=== PATIENT | male | born 1930 | race Caucasian/White ===

== ENCOUNTER → 2016-09-15 | Outpatient (CLI) | payer MEDICARE ==
[~2016-09-15] MED LIST: ATEN25TA PO; ATRV10T PO; CIPRO; HYDROCODONE; NAPR220C11 PO; OMEP-10 PO; PRD50T PO; PYRIDIUM; RAPAFLOW; aleve
--- NOTE | 2016-09-17 13:41 | ECHOCARDIOGRAPHY REPORT ---
DATE OF SERVICE: 09/15/2016 2D ECHOCARDIOGRAM REFERRING PHYSICIAN: Jese Tam MD MEASUREMENT: LVID end diastolic 4.9. IVS thickness 1.0. LVPW thickness 1.0. Left atrial diameter 3.7. Ejection fraction 60%. FINDINGS: 1. Technical quality is good. 2. The left ventricle is normal in size with normal contractility, systolic function appeared to be normal. Estimated ejection fraction is 60%. 3. The left atrium is normal in size. No clot or thrombus was seen within the left atrium. 4. The right atrium and right ventricle are normal in size. No clot or thrombus was seen within the right side. 5. 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 No mitral valve prolapse. No mitral valve stenosis. 6. Aortic valve is mildly calcified, still opening and closing normally, no significant aortic valve stenosis or regurgitation was seen. 7. Tricuspid valve is normal in morphology with mild tricuspid regurgitation noted by color Doppler flow. Doppler across the tricuspid valve estimated pulmonary artery pressure of 24 plus right atrial pressure. 8. Pulmonic valve is functioning normally. 9. No pericardial effusion. CONCLUSION: 1. Normal left ventricular size and systolic function, estimated ejection fraction 60%. 2. 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 3. Aortic valve sclerosis, no aortic stenosis. 4. Estimated pulmonary artery pressure of 30 mmHg. Job ID: [id number] DocumentID: [id number] Dictated Date: 09/16/2016 07:59:32 Shape Hand Date: 09/16/2016 09:37:36 Dictated By: DYLON HERNANDEZ MD
== END ==
LOC: CARD 14:51
PROVIDERS: ATTEND Physician Assistant
DX: I48.0 Paroxysmal atrial fibrillation (principal); I65.23 Occlusion and stenosis of bilateral carotid arteries; R53.83 Other fatigue; E78.2 Mixed hyperlipidemia

== ENCOUNTER → 2016-11-24 | Outpatient (CLI) | payer MEDICARE ==
--- NOTE | 2016-11-24 16:48 | Diagnostic Imaging Report ---
EXAMINATION: Multiplanar, multisequence MRI of the thoracic spine is performed without intravenous contrast. INDICATION: Back pain. FINDINGS: There is a scoliotic curvature convex to the right in the lower thoracic spine. This can be better assessed on radiographs or coronal imaging. The alignment of the posterior spinal line is satisfactory. There is no acute or chronic compression fractures. The spinal cord is normal in caliber and signal. There is disc desiccation at multiple levels with no significant disc height loss seen. There is a partially visualized disc disease at C6/7 level with endplate irregularity and disc herniation. There is suggestion of at least mild spinal canal stenosis at that level. There is minimal disc herniation seen at C7/T1 and T1/T2. This is not associated with spinal canal stenosis or cord compression. There is also a disc bulge at T11/12. This is associated with prominent facet and ligamentous hypertrophy and is associated with mild to moderate spinal canal stenosis reducing the AP dimension of the canal to 8.8 mm. Multilevel facet hypertrophy is seen. There is suggestion of moderate to severe foraminal narrowing at C7/T1 left foramen and moderate foramina stenosis on the left at T1/T2. There is moderate to severe foraminal narrowing on the right side at T1/T2. IMPRESSION: 1. There is thoracic spine scoliosis and degenerative changes. 2. Mild to moderate spinal canal stenosis at T11/12 is seen with no cord compression. 3. Upper thoracic spine foraminal stenosis is seen most prominent on the right side at T1/T2 of moderate to severe degree. Dictated by: Dictated on workstation # [id number]
== END ==
LOC: RAD 10:02
PROVIDERS: ATTEND Orthopaedic Surgery Orthopaedic Surgery of the Spine
DX: M47.814 Spondylosis without myelopathy or radiculopathy, thoracic region (principal); M48.04 Spinal stenosis, thoracic region; M41.24 Other idiopathic scoliosis, thoracic region
CPT/HCPCS: 72146

== ENCOUNTER → 2016-12-09 | Outpatient (CLI) | payer MEDICARE ==
--- NOTE | 2016-12-09 15:42 | Diagnostic Imaging Report ---
PROCEDURE: MRI lumbar spine. TECHNIQUE: Multiplanar, multisequence MRI of the lumbar spine was performed without contrast. INDICATION: Chronic back pain and bilateral leg pain. FINDINGS: There is a transitional lumbosacral junction with the S1/S2 level demonstrating a rudimentary disc. There is left convexity scoliosis of the lumbar spine. The alignment at the posterior spinal line is satisfactory. There is susceptibility artifact related to fusion hardware between spinous processes of L4 and L5. The vertebral body heights are preserved. There is multilevel disc desiccation and there is significant disc height loss and endplate degenerative changes seen, more prominent along the right side of the discs around L2/L3, L3/L4 and L4/L5 levels. This relates to the mechanical stress at the concavity of the scoliosis. Corresponding bone marrow reactive edema around these endplates is seen and is prominent. The cauda equina and conus medullaris appear grossly unremarkable. L1/L2: There is a mild disc bulge and mild to moderate facet hypertrophy. No central canal, lateral recess or right foraminal stenosis. The left foramen demonstrates mild to moderate stenosis. L2/L3: There is a diffuse disc bulge and moderate to severe facet arthropathy, worse on the right side with associated severe spinal canal stenosis reducing the AP dimension of the canal to 6.8 mm centrally and associated with lateral recess stenosis, severe on the right and moderate on the left. There is moderate foraminal stenosis on the left and severe foraminal stenosis on the right side. L3/L4: There is a mild diffuse disc bulge without central canal stenosis. There is moderate to severe right lateral recess stenosis and no significant left lateral recess stenosis. The foramina demonstrate mild stenosis bilaterally. L4/L5: There is a diffuse disc bulge and bilateral moderate to severe facet hypertrophy. No significant central canal stenosis. The lateral recess demonstrates moderate stenosis on the right and mild stenosis on the left. The foramina demonstrate moderate to severe stenosis bilaterally. L5/S1: There is a disc bulge asymmetric to the left. There is a component of disc protrusion in the left paracentral region that has a cranial extension without associated significant spinal canal stenosis. There is bilateral lateral recess stenosis, mild on the right and moderate on the left. The foramina demonstrate mild to moderate stenosis bilaterally. S1/S2: There is no spinal canal or foraminal stenosis. IMPRESSION: 1. There is a transitional lumbosacral junction with rudimentary slightly prominent disc at S1/S2 level. Spinous process fusion hardware between L4 and L5 is seen. 2. There is prominent left convexity scoliosis centered around L3 level with associated significant disc and facet degenerative changes. 3. There is severe spinal canal stenosis at L2/L3 level. 4. Multilevel neuroforaminal stenosis. Dictated by: Dictated on workstation # [id number]
== END ==
LOC: RAD 12:44
PROVIDERS: ATTEND Pain Medicine Interventional Pain Medicine
DX: M51.36 Other intervertebral disc degeneration, lumbar region (principal); M41.26 Other idiopathic scoliosis, lumbar region; M48.06 Spinal stenosis, lumbar region
CPT/HCPCS: 72148

== ENCOUNTER → 2017-02-14 | Outpatient (CLI) | payer MEDICARE ==
[~2017-02-14] VITALS: Ht 172.7 cm; Wt 78.9 kg
[~2017-02-14] MED LIST changes: +REGADENOSON 0.4 MG/5 ML SYR (LEXISCAN) IV ONE
[2017-02-14] MEDS: CATHETER FLUSH 10 ML SYR IV PRN ×2 (08:39→09:51)
[2017-02-14 09:41] VITALS: BP 118/72
--- NOTE | 2017-02-15 08:02 | STRESS TEST ---
DATE OF SERVICE: 02/14/2017 LEXISCAN MYOVIEW STRESS TEST REPORT REFERRING PHYSICIAN: Dr. Tam. Baseline heart rate is 58. Baseline blood pressure 118/72. Baseline EKG is sinus rhythm with no ischemic changes. In summary, the patient received 10.33 mCi of technetium-99 Myoview and the resting images were obtained then the patient received 0.4 mg of Lexiscan followed by 29.6 mCi of technetium-99 Myoview. Throughout the test, there were no EKG changes. The resting and stress images were reviewed and compared in the short axis, horizontal long axis, and vertical long axis views. Review of the images showed increased gastric uptake with diaphragmatic attenuation affecting the quality of the images. There is mild decreased uptake at the mid to apical inferior wall with mild reversibility. SSS 4, SDS 2, TID value 1.0. On the gated images, the left ventricle appeared to be normal in size with mild hypokinesia of the inferior wall. Calculated ejection fraction 57%. CONCLUSION: 1. The patient tolerated Lexiscan well. 2. Increased gastric uptake with diaphragmatic attenuation affecting the quality of the images with questionable mild ischemia at the inferior wall and inferolateral wall. 3. Normal left ventricular size with mild hypokinesia at the inferior wall. Calculated ejection fraction 57%. Job ID: [id number] DocumentID: [id number] Dictated Date: 02/14/2017 16:14:31 Industrial Engineering Technologist Date: 02/15/2017 00:55:49 Dictated By: DYLON HERNANDEZ MD
== END ==
LOC: CARD 08:27
PROVIDERS: ATTEND Physician Assistant
DX: I48.0 Paroxysmal atrial fibrillation (principal); I65.23 Occlusion and stenosis of bilateral carotid arteries; E78.2 Mixed hyperlipidemia; I34.0 Nonrheumatic mitral (valve) insufficiency; I10 Essential (primary) hypertension
CPT/HCPCS: 78452; 93017

== ENCOUNTER 2017-03-29 23:50 | Inpatient (IN) | payer MEDICARE ==
[~2017-03-29] VITALS: Ht 172.7 cm; Wt 79.8 kg
[~2017-03-29 23:50] MED LIST changes: -ACET325T38 PO; -BACL10TA PO; -FENO160T12 PO; -HYDR59LO2 TOP; -LEVO500T80 PO; -METO-387 PO; -OMEP20CA12 PO; -SULF-222 PO
[2017-03-30] VITALS (39 sets, daily range): BP systolic 82–120; BP diastolic 45–87
[2017-03-30] MEDS ORDERED: NS IV 1000 ML 1,000 ML IV ONE ×2 (00:01→06:00)
[2017-03-30 00:10] LABS: BASOPHILS % (AUTO) 0 % (0-10); EOSINOPHILS % (AUTO) 0 % (0-10); LYMPHOCYTES # (AUTO) 0.8 X 10^3 (1.0-4.0); LYMPHOCYTES % (AUTO) 6 % (12-44); MEAN CORPUSCULAR HEMOGLOBIN 32 PG (25-34); MEAN CORPUSCULAR HGB CONC 33 G/DL (32-36); MEAN CORPUSCULAR VOLUME 97 FL (80-99); MEAN PLATELET VOLUME 10.6 FL (7.4-10.4); MONOCYTES # (AUTO) 1.8 X 10^3 (0.0-1.0); MONOCYTES % (AUTO) 12 % (0-12); NEUTROPHILS # (AUTO) 11.6 X 10^3 (1.8-7.8); NEUTROPHILS % (AUTO) 82 % (42-75); PLATELET COUNT 192 10^3/uL (130-400); RED BLOOD COUNT 3.83 10^6/uL (4.35-5.85); RED CELL DISTRIBUTION WIDTH 14.3 % (10.0-14.5); WHITE BLOOD COUNT 14.1 10^3/uL (4.3-11.0)
[2017-03-30 00:22] LABS: INR 1.1 (0.8-1.4); PROTHROMBIN TIME PATIENT 14.6 SEC (12.2-14.7)
[2017-03-30 00:27] LABS: BAND NEUTROPHILS 5 %; BASOPHILS % (MANUAL) 0 %; EOSINOPHILS % (MANUAL) 0 %; LYMPHOCYTES % (MANUAL) 4 %; NEUTROPHILS % (MANUAL) 83 %; REACTIVE LYMPHOCYTES 2 %
[2017-03-30] MEDS ORDERED: cefTRIAXone INJECTION 1,000 MG in NS (IVPB) 50 ML IV ONE (00:30)
[2017-03-30 00:33] LABS: ALBUMIN 3.8 GM/DL (3.2-4.5); BILIRUBIN,TOTAL 0.5 MG/DL (0.1-1.0); CALCIUM 9.6 MG/DL (8.5-10.1); CREATININE SERUM 2.73 MG/DL (0.60-1.30); POTASSIUM 4.4 MMOL/L (3.6-5.0); TOTAL PROTEIN 7.1 GM/DL (6.4-8.2)
[2017-03-30 00:43] LABS: BILIRUBIN,URINE NEGATIVE (NEGATIVE); KETONES,URINE NEGATIVE (NEGATIVE); LEUKOCYTE ESTERASE ,URINE 3+ (NEGATIVE); NITRITE,URINE NEGATIVE (NEGATIVE); PH,URINE 6 (5-9); PROTEIN,URINE 2+ (NEGATIVE); UROBILINOGEN,URINE NORMAL (NORMAL)
--- NOTE | 2017-03-30 00:46 | ED General ---
General Chief Complaint: Fever-Adult/Adol Stated Complaint: UTI,POSS KIDNEY STONE Nursing Triage Note: PT TO ED 7 W/ FAMILY FOR C/O ELEVATED TEMP, POSSIBLE UTI Nursing Sepsis Screen: No Definite Risk Source of Information: Patient Exam Limitations: No Limitations History of Present Illness Time Seen by Provider: 23:56 Initial Comments Here with report of fever, chills and shaking with concerns of urinary tract infection. His doctor had noted urinary tract infection at an office visit and started him on Bactrim. He also had CT scan and abdominal x-ray earlier today and was due to start Levaquin tomorrow. 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 Follows with Dr. Frank. He has appointment with Dr. Frank on in the afternoon for obstructive uropathy noted on CT scan today. History of recent back surgery approximately a month ago with surgical wounds healing well and no problems related to that. He does have stage I decubitus to the area of the coccyx due to prolonged sitting. Believes that the kidney stone may be a result of having where his back brace for a prolonged period after the surgery. Denies other wounds on the skin. Denies nausea or vomiting and reports constipation. Did take a Tylenol and a hydrocodone at about 7 p.m. tonight and that did help but the chills and shaking were noted later this evening prompting the visit. Timing/Duration: 12-24 Hours Severity: Moderate Associated Systoms: No Chest Pain, No Cough, Fever/Chills, No Nausea/Vomiting, No Shortness of Air, Weakness Allergies and Home Medications Allergies Coded Allergies: Penicillins (Verified Allergy, Unknown, 09/01/06) iodine (Verified Allergy, Unknown, 09/01/06) Home Medications Atenolol 25 Mg Tablet, 25 MG PO DAILY, #30 Ref 0 Prescribed by: MERLINE ERICKSON on 04/19/151814 Atorvastatin Calcium 10 Mg Tablet, 1 TAB PO HS, Ref 0 (Reported) Naproxen Sodium 220 Mg Capsule, 220 MG PO BID, (Reported) Omeprazole 20 Mg Capsule.dr, 20 MG PO DAILY, (Reported) Constitutional: see HPI, chills, fever, weakness EENTM: no symptoms reported Respiratory: no symptoms reported, No cough, No short of breath Cardiovascular: No chest pain, No palpitations Gastrointestinal: abdominal pain (suprapubic region), No nausea, No vomiting Genitourinary: No dysuria, pain Musculoskeletal: back pain, muscle pain Skin: no symptoms reported Psychiatric/Neurological: No Symptoms Reported All Other Systems Reviewed Negative Unless Noted: Yes Past Urteecl-Kanncw-Pjueko Hx Patient Social History Alcohol Use: Denies Use Recreational Drug Use: No Smoking Status: Never a Smoker Recent Foreign Travel: No Contact w/Someone Who Travel: No Recent Infectious Disease Expo: No Recent Hopitalizations: Yes Physical Abuse: No Sexual Abuse: No Mistreated: No Fear: No Immunizations Up To Date Date of Pneumonia Vaccine: Jun 28, 2006 Date of Influenza Vaccine: Mar 02, 2015 Surgeries History of Surgeries: Yes Respiratory History of Respiratory Disorde: No Cardiovascular History of Cardiac Disorders: Yes Neurological History of Neurological Disord: No Reproductive System Hx Reproductive Disorders: Yes Gastrointestinal History of Gastrointestinal Di: Yes Gastrointestinal Disorders: Esophagitis Musculoskeletal History of Musculoskeletal Dis: Yes Musculoskeletal Disorders: Arthritis Endocrine History of Endocrine Disorders: No Cancer History of Cancer: Yes Cancer: Skin Psychosocial History of Psychiatric Problem: No Suicide Risk Score: 0 Blood Transfusions History of Blood Disorders: No Reviewed Nursing Assessment Reviewed/Agree w Nursing PMH: Yes Family Medical History Significant Family History: No Pertinent Family Hx Physical Exam-Suspected Sepsis Physical Exam Vital Signs Vital Sign - Last 12Hours 03/29/17 03/30/17 23:53 00:05 Temp 100.6 Pulse 129 Resp 20 B/P (MAP) 88/68 Pulse Ox 92 O2 Delivery Room Air O2 Flow Rate 2.00 Capillary Refill : Less Than 3 Seconds Blood Pressure Mean: 75 General Appearance: No Apparent Distress, WD/WN HEENT: PERRL/EOMI, Pharynx Normal Neck: Non Tender, Supple Respiratory: Lungs Clear, Normal Breath Sounds Cardiovascular: No Murmur, Tachycardia Gastrointestinal: Non Tender, Soft Back: Normal Inspection, No CVA Tenderness, No Vertebral Tenderness Extremity: Normal Capillary Refill, Normal Range of Motion, Non Tender Neurologic/Psychiatric: Alert, Oriented x3 Skin: warm/dry, other (stage I decubitus to the area of the coccyx with redness noted. Surgical wounds to the left side of the abdomen are healed without signs and symptoms of infection.) Focused Exam Evaluation Lactate Level Laboratory Tests 03/30/17 00:00: Lactic Acid Level 2.88*H 03/30/17 01:56: Lactic Acid Level 1.46 Lactic Acid Level Laboratory Tests Test 03/30/17 01:56 Lactic Acid Level 1.46 MMOL/L (0.50-2.00) Progress/Results/Core Measures Suspected Sepsis Recent Fever Within 48 Hours: No Infection Criteria Present: None New/Unexplained Altered Menta: No Sepsis Screen: No Definite Risk Sepsis Diagnosis: SIRS Temperature:100.6 Pulse: 129 Respiratory Rate: 20 Laboratory Tests 03/30/17 00:00: White Blood Count 14.1H 03/30/17 04:45: White Blood Count 14.2H Blood Pressure 88 /68 Mean: 75 Laboratory Tests 03/30/17 00:00: Lactic Acid Level 2.88*H 03/30/17 01:56: Lactic Acid Level 1.46 Laboratory Tests 03/30/17 00:00: Creatinine 2.73H, INR Comment 1.1, Platelet Count 192, Total Bilirubin 0.5 03/30/17 04:45: Creatinine 2.54H, Platelet Count 146, Total Bilirubin 0.3 Results/Orders Lab Results Laboratory Tests Test 03/30/17 00:00 03/30/17 00:35 03/30/17 01:56 03/30/17 04:45 Range/Units White Blood Count 14.1 H 14.2 H 4.3-11.0 10^3/uL Red Blood Count 3.83 L 3.24 L 4.35-5.85 10^6/uL Hemoglobin 12.2 L 10.3 L 13.3-17.7 G/DL Hematocrit 37 L 31 L 40-54 % Mean Corpuscular Volume 97 97 80-99 FL Mean Corpuscular Hemoglobin 32 32 25-34 PG Mean Corpuscular Hemoglobin Concent 33 33 32-36 G/DL Red Cell Distribution Width 14.3 14.3 10.0-14.5 % Platelet Count 192 146 130-400 10^3/uL Mean Platelet Volume 10.6 H 10.9 H 7.4-10.4 FL Neutrophils (%) (Auto) 82 H 83 H 42-75 % Lymphocytes (%) (Auto) 6 L 3 L 12-44 % Monocytes (%) (Auto) 12 14 H 0-12 % Eosinophils (%) (Auto) 0 0 0-10 % Basophils (%) (Auto) 0 0 0-10 % Neutrophils # (Auto) 11.6 H 11.8 H 1.8-7.8 X 10^3 Lymphocytes # (Auto) 0.8 L 0.5 L 1.0-4.0 X 10^3 Monocytes # (Auto) 1.8 H 1.9 H 0.0-1.0 X 10^3 Eosinophils # (Auto) 0.0 0.0 0.0-0.3 10^3/uL Basophils # (Auto) 0.0 0.0 0.0-0.1 10^3/uL Neutrophils % (Manual) 83 % Lymphocytes % (Manual) 4 % Monocytes % (Manual) 6 % Eosinophils % (Manual) 0 % Basophils % (Manual) 0 % Band Neutrophils 5 % Reactive Lymphocytes 2 % Blood Morphology Comment NORMAL Prothrombin Time 14.6 12.2-14.7 SEC INR Comment 1.1 0.8-1.4 Activated Partial Thromboplast Time 29 24-35 SEC Sodium Level 135 136 135-145 MMOL/L Potassium Level 4.4 4.0 3.6-5.0 MMOL/L Chloride Level 102 107 98-107 MMOL/L Carbon Dioxide Level 21 21 21-32 MMOL/L Anion Gap 12 8 5-14 MMOL/L Blood Urea Nitrogen 45 H 40 H 7-18 MG/DL Creatinine 2.73 H 2.54 H 0.60-1.30 MG/DL Estimat Glomerular Filtration Rate 22 24 BUN/Creatinine Ratio 16 16 Glucose Level 150 H 122 H 70-105 MG/DL Lactic Acid Level 2.88 *H 1.46 0.50-2.00 MMOL/L Calcium Level 9.6 8.5 8.5-10.1 MG/DL Total Bilirubin 0.5 0.3 0.1-1.0 MG/DL Aspartate Amino Transf (AST/SGOT) 17 18 5-34 U/L Alanine Aminotransferase (ALT/SGPT) 11 9 0-55 U/L Alkaline Phosphatase 87 69 40-136 U/L Total Protein 7.1 5.7 L 6.4-8.2 GM/DL Albumin 3.8 3.1 L 3.2-4.5 GM/DL Urine Color YELLOW Urine Clarity VERY CLOUDY H Urine pH 6 5-9 Urine Specific Pala 1.020 1.016-1.022 Urine Protein 2+ H NEGATIVE Urine Glucose (UA) 1+ H NEGATIVE Urine Ketones NEGATIVE NEGATIVE Urine Nitrite NEGATIVE NEGATIVE Urine Bilirubin NEGATIVE NEGATIVE Urine Urobilinogen NORMAL NORMAL MG/DL Urine Leukocyte Esterase 3+ H NEGATIVE Urine RBC (Auto) 5+ H NEGATIVE Urine RBC 2-5 H /HPF Urine WBC TNTC H /HPF Urine Squamous Epithelial Cells 0-2 /HPF Urine Crystals NONE /LPF Urine Bacteria MODERATE H /HPF Urine Casts NONE /LPF Urine Mucus SMALL H /LPF Urine Culture Indicated YES Phosphorus Level 2.1 L 2.3-4.7 MG/DL Magnesium Level 1.9 1.8-2.4 MG/DL Micro Results Microbiology 03/30/17 Influenza Types A,B Antigen (EDY) - Final, Complete My Orders Orders - MERLINE ERICKSON MD Cbc With Automated Diff (03/30/17 00:) Comprehensive Metabolic Panel (03/30/17 00:) Lactic Acid Analyzer (03/30/17 00:) Blood Culture (03/30/17 00:) Sputum Culture (03/30/17 00:) Ua Culture If Indicated (03/30/17 00:) Protime With Inr (03/30/17 00:) Partial Thromboplastin Time (03/30/17 00:01) Chest 1 View, Ap/Pa Only (03/30/17 00:01) O2 (03/30/17 00:01) Saline Lock/Iv-Start (03/30/17 00:01) Saline Lock/Iv-Start (03/30/17 00:01) Vital Signs Adult Sepsis Patie Q1H (03/30/17 00:01) Remove Rings In Anticipation O (03/30/17 00:01) Influenza A And B Antigens (03/30/17 00:01) Ns Iv 1000 Ml (Sodium Chloride 0.9%) (03/30/17 00:01) Manual Differential (03/30/17 00:00) Ceftriaxone Injection (Rocephin Injectio (03/30/17 00:30) Urine Culture (03/30/17 00:35) Medications Given in ED Current Medications Medications Dose Ordered Sig/Jennifer Route Start Time Stop Time Status Last Admin Dose Admin Ceftriaxone Sodium 1000 mg/ Sodium Chloride 50 ml @ 100 mls/hr ONCE ONCE IV 03/30/17 00:30 03/30/17 00:59 DC 03/30/17 00:40 100 MLS/HR Sodium Chloride 1,000 ml @ 0 mls/hr Q0M ONCE IV 03/30/17 00:01 03/30/17 00:03 DC 03/30/17 00:08 1,000 MLS/HR Vital Signs/I&O Vital Sign - Last 12Hours 03/29/17 03/30/17 03/30/17 03/30/17 23:53 00:05 02:08 02:09 Temp 100.6 103.8 Pulse 129 98 99 Resp 20 18 22 B/P (MAP) 88/68 107/55 Pulse Ox 92 95 97 92 O2 Delivery Room Air Nasal Cannula Nasal Cannula Nasal Cannula O2 Flow Rate 2.00 2.00 2.00 03/30/17 03/30/17 03/30/17 03/30/17 02:15 02:30 02:30 02:45 Pulse 65 98 98 97 Resp 19 18 18 B/P (MAP) 112/56 120/56 107/58 Pulse Ox 91 92 90 O2 Delivery Nasal Cannula Nasal Cannula Nasal Cannula O2 Flow Rate 2.00 2.00 2.00 03/30/17 03/30/17 03/30/17 03/30/17 03:00 03:15 03:30 03:45 Pulse 97 99 94 91 Resp 16 24 16 15 B/P (MAP) 93/50 112/59 94/51 100/50 Pulse Ox 95 89 95 94 O2 Delivery Nasal Cannula Nasal Cannula Nasal Cannula Nasal Cannula O2 Flow Rate 2.00 2.00 2.00 2.00 03/30/17 03/30/17 03/30/17 03/30/17 03:48 03:56 04:00 04:00 Temp 100.9 Pulse 88 Resp 25 B/P (MAP) 92/53 Pulse Ox 92 94 92 O2 Delivery Nasal Cannula Nasal Cannula Nasal Cannula O2 Flow Rate 2.00 2.00 2.00 03/30/17 03/30/17 03/30/17 03/30/17 04:15 04:29 04:30 04:45 Pulse 85 98 90 90 Resp 18 20 17 B/P (MAP) 101/56 88/47 92/49 Pulse Ox 94 92 95 94 O2 Delivery Nasal Cannula Nasal Cannula Nasal Cannula O2 Flow Rate 2.00 2.00 2.00 03/30/17 05:00 Pulse 89 Resp 15 B/P (MAP) 89/48 Pulse Ox 95 O2 Delivery Nasal Cannula O2 Flow Rate 2.00 Capillary Refill : Less Than 3 Seconds Blood Pressure Mean: 75 Progress Note : Progress Note Seen and evaluated. IV, labs, UA, chest x-ray, normal saline 1 L bolus, blood cultures and lactic acid ordered. Monitor patient. 0030: I have reviewed the patient's history an there are no urine cultures with findings noted. 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 States that Levaquin has worked in the past. Would like to try to find a different option. Creatinine noted to be elevated. We will use Rocephin 1 g IV for treatment at this point. Patient had an isolated low blood pressure 1 on arrival but patient was moving. Subsequent blood pressures have been 120s to 130s systolic and I believe the first blood pressure was an error. Lactic acid is elevated at 2.88 with elevated white count and tachycardia indicating sepsis. Patient actually has findings of severe sepsis with elevated creatinine. This is likely a result of the ureteral obstruction noted on CT done earlier today but also has findings of infection so we will treat as severe sepsis. Currently does not meet high-volume fluid resuscitation requirements as he is not hypotensive and lactic acid is less than 4. Patient will require admission. 0054: Discussed case with Dr. HE. He accepts patient for admission, inpatient status. Patient to go to ICU. Diagnostic Imaging Diagonstic Imaging: Xray Plain Films/CT/US/NM/MRI: chest Comments no cute findings Reviewed: Reviewed by Me Diagonstic Imaging: CT Plain Films/CT/US/NM/MRI: abdomen, pelvis Comments Reviewed form Earlier visit NAME: FRANTZ CONDE [facility] REC#: [id number] PT STATUS: REG CLI : 1930 PHYSICIAN: WENDY BERNSTEIN APRN ADMIT DATE: 03/29/17/RAD Signed Date of Exam: 03/29/17 CT ABDOMEN/PELVIS WO PROCEDURE: CT abdomen and pelvis without contrast. TECHNIQUE: Multiple contiguous axial images were obtained through the abdomen and pelvis without the use of intravenous contrast. INDICATION: Right flank pain. COMPARISON: CT of 05/21/2010 and radiograph of 03/29/17. FINDINGS: There is moderate to severe right hydronephrosis secondary to UPJ stone measuring 1.6 cm. There are perinephric stranding and edema changes seen compatible with high grade obstruction of the renal collecting system with or without superimposed infection. Correlate clinically. Retroperitoneal edema around the rest of the ureter is seen. The urinary bladder demonstrates mild wall thickening. The findings of edema around the ureter distal to the stone and bladder thickening is in favor of superimposed infection rather than just obstructive related perinephric edema. No other stones in the right kidney or right ureter seen. The left kidney demonstrates hilar punctate calcifications which could be vascular with no definite stone or hydronephrosis. The lung bases demonstrate mild atelectasis. The liver, the gallbladder, the spleen, the pancreas and the adrenal glands appear unremarkable. The abdominal aorta is normal in caliber. No para-aortic significantly enlarged lymph node is seen. No significant free fluid or fluid collection in the abdomen or pelvis is noted. There is suggestion of bilateral small fat-containing inguinal hernias. There is scoliosis in the lumbar spine convex to the left centered around L3 level with associated degenerative changes in the lower lumbar spine. There is a fusion hardware from lateral approach involving L2, L3, and L4 and disc cage seen at these levels. IMPRESSION: There is moderate to severe hydronephrosis related to an obstructive stone at the right UPJ measuring 1.6 cm. There is prominent edema around the right kidney, right ureter and the bladder in favor of superimposed infection. Correlate clinically. The findings were called to nurse practitioner taking care of the patient Ms. Wendy Bernstein by Dr. Dos Santos at 3:20 PM. Dictated by: Dictated on workstation # [id number] Dict: 03/29/17 1503 Trans: 03/29/17 1731 Interpreted by: VIRGILIO DOS SANTOS MD Electronically signed by: VIRGILIO DOS SANTOS MD 03/29/17 1731 Diagonstic Imaging: Xray Plain Films/CT/US/NM/MRI: abdomen Comments Reviewed from earlier visit [facility] [place], [place] NAME: AMAYAFRANTZ Juan [facility] REC#: [id number] PT STATUS: REG CLI : 1930 PHYSICIAN: WENDY BERNSTEIN APRN ADMIT DATE: 03/29/17/RAD Draft Date of Exam:03/29/17 ABDOMEN/KUB 1VIEW EXAMINATION: Supine abdomen at 11:30 a.m. INDICATION: Hematuria and right-sided pain. FINDINGS: The CT abdomen/pelvis exam of 05/21/2010 noted an 8 x 9 mm calcification within the right kidney. On this study, there is now a 10 x 17 mm calcification overlying the medial aspect of the right renal contour. This calcification and the calcification seen on the prior exam may be one and the same. I am concerned that this calcification has migrated into the right renal pelvis or right ureter and that it is producing obstruction of the right collecting system. I would recommend that CT of the abdomen and pelvis be performed for further study. There also appears to be a smaller 7 x 7 mm calcification within the mid portion of the right kidney. No other pathological calcification is seen. There is some gas in both the large and small bowel in a nonspecific fashion. There is no sign of an acute abnormality. There are extensive postsurgical changes involving the lumbar spine. Specifically, there are orthopedic plate and screw fixation devices along the lateral aspects of the disc spaces of L2-L3 and L3-L4. There are also interbody devices at these two levels. In addition, there are other radiopaque orthopedic fixation devices along the right lateral aspects of the L3-L4 disc space and the L4-L5 disc space. There is no acute bony abnormality noted. IMPRESSION: 1. There is a large calcification along the medial aspect of the right kidney. This may be within either the right renal pelvis or the proximal right ureter and it is possible that this is producing obstruction of the right collecting system. CT will be recommended for further evaluation. 2. There is no acute abnormality identified otherwise. Dictated on workstation # [id number] Dict: 03/29/17 1303 Trans: 03/29/17 1425 [id number] Interpreted by: NATALYA PIKE MD Electronically signed by: Departure Communication (Admissions) Time/Spoke to Admitting Phy: 00:54 Impression Impression: Primary Impression: Severe sepsis Additional Impressions: Urinary tract infection Qualified Codes: N30.00 - Acute cystitis without hematuria Ureteral stone with hydronephrosis Stage I decubitus ulcer and pressure area Qualified Codes: L89.301 - Pressure ulcer of unspecified buttock, stage 1 Disposition: ADMITTED INPATIENT Condition: Stable Admissions Decision to Admit Reason: Admit from ER (General) Decision to Admit/Date: Mar 30, 2017 Time/Decision to Admit Time: 00:54 Departure-Patient Inst. Referrals: ILIANA WING MD (PCP/Family) Primary Care Physician MERLINE ERICKSON MD Mar 30, 2017 00:46
[2017-03-30 00:51] LABS: SQUAMOUS EPITHELIAL CELL,UR 0-2 /HPF; WBC,URINE TNTC /HPF
--- OUTSIDE RECORDS SUMMARY | 2017-03-30 01:37 | XMS REPORT | Encounter Summary ---
Author Author [facility] Organization [facility] Address Unknown Phone Unavailable Care Team Providers Care Shop Fitter Name Role Phone PCP Unavailable Encounter Details Date Type Department Care Team Description 02/07/2017 Lab Visit [facility] Laboratory Prostate cancer (HCC) - [address] [place] [address] Social History Tobacco Use Types Packs/Day Years Used Date Never Smoker Alcohol Use Drinks/Week oz/Week Comments Yes slight usage Sex Assigned at Date Recorded Not on file as of this encounter Plan of Treatment Date Type Specialty Care Team Description 06/08/2017 Office Visit Neurology Lance Richards MD [address] [place] [address] 02/09/2018 Office Visit Urology Noreen Taylor, ACCOUNT EXECUTIVE TRAINEE [address] [place] [address] as of this encounter Results * PSA (02/07/2017 11:01 AM) Component Value Ref Range PSA 0.09 0.00 - 4.00 ng/mL Specimen Performing Laboratory Blood [facility] [address] [place] [address] in this encounter Visit Diagnoses Diagnosis Prostate cancer (HCC) Malignant neoplasm of prostate in this encounter
--- OUTSIDE RECORDS SUMMARY | 2017-03-30 01:37 | XMS REPORT | Clinical Summary ---
Author Author [facility] Address Unknown Phone Unavailable Support Name Relationship Address Phone , Sandi Byrne ECON [address] [address] Allergies Active Allergy Reactions Severity Noted Date Comments Other Other (See Comments) Slows heart rate Current Medications Prescription Sig. Disp. Refills Start End Date Status Date traMADol (ULTRAM) 50 MG Take 50 mg by mouth every Active tablet 6 (six) hours as needed for Mild Pain. levothyroxine (SYNTHROID, Take 100 mcg by mouth. Active LEVOTHROID) 100 MCG Take 100 mcg by mouth tablet once a day at 6 am. Indications: Underactive Thyroid omeprazole (PRILOSEC) 20 Take 20 mg by mouth Active MG capsule daily. Take 20 mg by mouth one time daily before meals. Indications: Gastroesophageal Reflux Disease SENNA CO Use as directed 2 tablets Active in the mouth or throat daily. metoprolol succinate Take 100 mg by mouth. 02/09/20 Active (TOPROL-XL) 100 MG 24 hr [address] 1 tablet (0.4 mg) Active (NITROQUICK) 0.4 MG SL by buccal route at the tablet first sign of an attack; Max 3 doses, call 911 after first dose losartan (COZAAR) 50 MG take 1 tablet (50 mg) by 08/10/19 Active tablet oral route once daily 14 atorvastatin (LIPITOR) 40 take 1 tablet (40 mg) by Active MG tablet oral route once daily metoprolol succinate Take 25 mg by mouth Active (TOPROL-XL) 25 MG 24 hr daily. tablet furosemide (LASIX) 40 MG Take 40 mg by mouth Active tablet daily. apixaban (ELIQUIS) 5 MG Take 5 mg by mouth 2 Active tablet (two) times daily. 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 02/10/2017 Encounters Date Type Specialty Care Team Description 02/18/2017 [facility], Onbase Scan 02/10/2017 Office Visit Noreen Taylor APRN Prostate cancer (HCC) (Primary Dx);BPH with urinary obstruction 02/07/2017 Lab Visit Prostate cancer (HCC) 02/07/2017 Orders Only Mert Guido MD Prostate cancer (HCC) (Primary Dx) from Last 3 Months Immunizations Name Dates Previously Given Next Due Herpes Zoster (Zostavax) 07/28/2012 INFLUENZA IIV3 HD 02/18/2016 (Adults=>65 y/o-FLUZONE HD) INFLUENZA NOS (WEBIZ 01/11/2015 REGISTRY) Influenza IIV3 PFree 02/08/2013 Pneumococcal 08/10/2012 Polysaccharide (23-valent) Family History Medical History Relation Name Comments No Known Problems Father No Known Problems Mother Relation Name Status Comments Father Mother Social History Tobacco Use Types Packs/Day Years Used Date Never Smoker Smokeless Tobacco: Never Used Alcohol Use Drinks/Week oz/Week Comments Yes slight usage Sex Assigned at Date Recorded Not on file Last Filed Vital Signs Vital Sign Reading Time Taken Blood Pressure 128/68 12/06/2016 9:39 AM CDT Pulse 84 12/06/2016 9:39 AM CDT Temperature 36.7 C (98 F) 02/05/2014 3:46 PM CDT Respiratory Rate 18 12/06/2016 9:39 AM CDT Oxygen Saturation 97% 02/05/2014 4:38 PM CDT Inhaled Oxygen - - Concentration Weight 99.6 kg (219 lb 8 oz) 11/12/2016 9:11 AM CDT Height 182.9 cm (6') 10/23/2013 11:54 AM CDT Body Mass Index 29.77 11/12/2016 9:11 AM CDT Plan of Treatment Date Type Specialty Care Team Description 06/08/2017 Office Visit Lance Richards MD [address] [facility] [place] [address] [phone] 02/09/2018 Office Visit Noreen Taylor, MICA LAMINATING MACHINE FEEDER [address] [place] [address] Health Maintenance Due Date Last Done Comments DTaP,Tdap,and Td Vaccines 02/05/1949 (1 - Tdap) Annual Wellness Visit 12/06/1997 Pneumo-Adult (2 of 2 - 08/10/2013 08/10/2012 PCV13) Influenza Vaccine (#1) 2016 02/18/2016, 01/11/2015, 02/08/2013 Zoster Vaccine Completed 07/28/2012 Results * PSA (02/07/2017 11:01 AM) Component Value Ref Range PSA 0.09 0.00 - 4.00 ng/mL Specimen Performing Laboratory Blood [facility] [address] [place] [address] from Last 3 Months
--- OUTSIDE RECORDS SUMMARY | 2017-03-30 01:37 | XMS REPORT | Encounter Summary ---
Author Author [facility] Address Unknown Phone Unavailable Care Team Providers Care Digital Media Analyst Name Role Phone PCP Unavailable Encounter Details Date Type Department Care Team Description 02/07/2017 Orders Only [facility] Mert Guido MD Prostate cancer (HCC) [address] [facility] [address] [facility] (Primary Dx) [place], [place] [id number] [address] [place] [address] Social History Tobacco Use Types Packs/Day Years Used Date Never Smoker Alcohol Use Drinks/Week oz/Week Comments Yes slight usage Sex Assigned at Date Recorded Not on file as of this encounter Plan of Treatment Date Type Specialty Care Team Description 06/08/2017 Office Visit Neurology Lance Richards MD [address] [place], [place] [id number] 02/09/2018 Office Visit Urology Noreen Taylor, REMOTE SENSING ANALYST [address] [place], [place] [id number] as of this encounter Results * PSA (02/07/2017 11:01 AM) Component Value Ref Range PSA 0.09 0.00 - 4.00 ng/mL Specimen Performing Laboratory Blood [facility] [address] [place] [address] in this encounter Visit Diagnoses Diagnosis Prostate cancer (HCC) - Primary Malignant neoplasm of prostate in this encounter
--- OUTSIDE RECORDS SUMMARY | 2017-03-30 01:37 | XMS REPORT | Encounter Summary ---
Author Author [facility] Organization [facility] Address Unknown Phone Unavailable Care Team Providers Care Coupon Clerk Name Role Phone PCP Unavailable Reason for Visit * Reason Comments Prostate Cancer Encounter Details Date Type Department Care Team Description 02/10/2017 Office Visit [place] [facility] Noreen Taylor APRN Prostate cancer (HCC) [address] (Primary Dx);[place] [address] [place] [address] urinary obstruction [phone] Social History Tobacco Use Types Packs/Day Years Used Date Never Smoker Smokeless Tobacco: Never Used Alcohol Use Drinks/Week oz/Week Comments Yes slight usage Sex Assigned at Date Recorded Not on file as of this encounter Progress Notes * Noreen Taylor APRN - 02/10/2017 11:30 AM CDT Formatting of this note may be different from the original. [facility] [address], [address] [place], [place] [id number] [phone] Urology Progress Note 02/10/2017 CHIEF COMPLAINT Chief Complaint Patient presents with Prostate Cancer SUBJECTIVE Tank Byrne is a 87 y.o. male who returns for follow up of BPH and prostate cancer. He has done well since his last visit with Dr. Guido January 2016 and reports stable and manageable BPH symptoms with no dysuria or hematuria. He denies any new bone pain or weight loss. His recent PSA from January 2017 remains stable at 0.09. In review, patient with a long history of BPH s/p TURP x 2 most recently [place] [address] Guido with an incidental finding of Jerry 3+3 prostate cancer managed with watchful waiting with subsequent stable PSA's. Patient does have history of CAD with recent TIA and for this reason is on Eliquis. Past Medical History: Diagnosis Date Atrial fibrillation (HCC) Blood transfusion without reported diagnosis HAD 4 UNITS 1977 Colon polyp Coronary artery disease Elevated PSA GERD (gastroesophageal reflux disease) Hypertension Hypertrophy of prostate without urinary obstruction and other lower urinary tract symptoms (LUTS) Hypothyroidism Myocardial infarction 1996 Obstructive sleep apnea (adult) (pediatric) CPAP Prostate cancer (HCC) 1977,2013 Past Surgical History: Procedure Laterality Date Bilateral nasal and nasal dorsum advancement flap closure 02/05/14 Dr Lewis CHOLECYSTECTOMY CORONARY ANGIOPLASTY WITH STENT PLACEMENT 01/31/1997,04/2013 3 stents placed 04/2013, total of 5 stents have been placed HERNIA REPAIR Pacemaker defibrilator insertion [facility] PROSTATE SURGERY TURP 2013 Family History Problem Relation Age of Onset No Known Problems Father No Known Problems Mother Social History Social History Marital status: Spouse name: N/A Number of children: N/A Years of education: N/A Occupational History Not on file. Social History Main Topics Smoking status: Never Smoker Smokeless tobacco: Never Used Alcohol use Yes Comment: slight usage Drug use: No Sexual activity: No Other Topics Concern Not on file Social History Narrative MEDICATIONS Current Outpatient Prescriptions Medication Sig Dispense Refill apixaban (ELIQUIS) 5 MG tablet Take 5 mg by mouth 2 (two) times daily. atorvastatin (LIPITOR) 40 MG tablet take 1 tablet (40 mg) by oral route once daily furosemide (LASIX) 40 MG tablet Take 40 mg by mouth daily. levothyroxine (SYNTHROID, LEVOTHROID) 100 MCG tablet Take 100 mcg by mouth. Take 100 mcg by mouth once a day at 6 am. Indications: Underactive Thyroid losartan (COZAAR) 50 MG tablet take 1 tablet (50 mg) by oral route once daily metoprolol succinate (TOPROL-XL) 100 MG 24 hr tablet Take 100 mg by mouth. metoprolol succinate (TOPROL-XL) 25 MG 24 hr tablet Take 25 mg by mouth daily. nitroglycerin (NITROQUICK) 0.[address] 1 tablet (0.4 mg) by buccal route at the first sign of an attack; Max 3 doses, call 911 after first dose omeprazole (PRILOSEC) 20 MG capsule Take 20 mg by mouth daily. Take 20 mg by mouth one time daily before meals. Indications: Gastroesophageal Reflux Disease SENNA CO Use as directed 2 tablets in the mouth or throat daily. traMADol (ULTRAM) 50 MG tablet Take 50 mg by mouth every 6 (six) hours as needed for Mild Pain. No current facility-administered medications for this visit. ALLERGIES Allergies Allergen Reactions Other Other (See Comments) Slows heart rate ROS Constitutional: No fever, weight loss or fatigue Gastrointestinal: No constipation or diarrhea, no vomiting Neurologic: No acute changes in weakness or numbness PHYSICAL EXAM Vital Signs: There were no vitals taken for this visit. Constitutional: Well developed, well nourished, in no apparent distress Abdomen: Soft and nontender and nondistended. 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 Prostate cancer (HCC) 2. BPH with urinary obstruction s/p TURP 2013 -- doing well Given his stable and manageable symptoms, I advised continuing with the current regimen for the time being. I again had a long disucssion with the patient in counseling regarding his prostate cancer diagnosis as well as the treatment options including surgery, radiation, and hormonal treatment. The patient desires to continue with the current regimen of watchful waiting. I explained the risk of his prostate cancer progressing with this regimen and eventually requiring more complex treatment down the road. Plan PSA and follow up in 1 year. Greater than 50% of the office visit time was spent in counseling / coordination of care. Total time 15 min. 1. Reviewed pertinent history, allergies, and medications. 2. Patient expressed understanding and agreement with plan. Electronically signed by: Noreen Taylor APRN, SERVICE DESK AGENT-C 02/10/2017 11:51 AM in this encounter Plan of Treatment Date Type Specialty Care Team Description 06/08/2017 Office Visit Neurology Lance Richards MD [address] [place], [place] [id number] 02/09/2018 Office Visit Urology Noreen Taylor APRN [address] [place] [address] [phone] as of this encounter Visit Diagnoses Diagnosis Prostate cancer (HCC) - Primary Malignant neoplasm of prostate BPH with urinary obstruction Hypertrophy of prostate with urinary obstruction and other lower urinary tract symptoms (LUTS) in this encounter
--- OUTSIDE RECORDS SUMMARY | 2017-03-30 01:37 | XMS REPORT | Encounter Summary ---
Author Author [facility] Organization [facility] Address Unknown Phone Unavailable Care Team Providers Care Hotel Reservation Agent Name Role Phone PCP Unavailable Encounter Details Date Type Department Care Team Description 02/18/2017 [facility]LE TESTS [facility], [facility] [place], [place] Social History Tobacco Use Types Packs/Day Years Used Date Never Smoker Smokeless Tobacco: Never Used Alcohol Use Drinks/Week oz/Week Comments Yes slight usage Sex Assigned at Date Recorded Not on file as of this encounter Plan of Treatment Date Type Specialty Care Team Description 06/08/2017 Office Visit Neurology Lance Richards MD [address] [place] [address] 02/09/2018 Office Visit Urology Noreen Taylor, DIESEL MAINTENANCE ELECTRICIAN [address] [place] [address] as of this encounter Visit Diagnoses Not on filein this encounter
[2017-03-30] MEDS ORDERED: ACETAMINOPHEN 325 MG TABLET/CAPLET (TYLENOL) ONE (02:06)
[2017-03-30] MEDS ORDERED: NS IV 1000 ML 1,000 ML ONE (02:06)
[2017-03-30] MEDS ORDERED: ACETAMINOPHEN 325 MG TABLET/CAPLET (TYLENOL) PO PRN (03:30)
[2017-03-30] MEDS: NS IV 1000 ML 1,000 ML IV SCH ×6 (03:47→19:08)
[2017-03-30] MEDS ORDERED: NOREPINEPHRINE 4 MG in D5W IV SOLUTION (EXCEL) 250 ML IV SCH (04:45)
[2017-03-30] MEDS ORDERED: RT-ALBUTEROL SULF 2.5 MG/3 ML PRE-MIX VIAL IH PRN (04:45)
[2017-03-30 04:56] LABS: BASOPHILS % (AUTO) 0 % (0-10); EOSINOPHILS % (AUTO) 0 % (0-10); LYMPHOCYTES # (AUTO) 0.5 X 10^3 (1.0-4.0); LYMPHOCYTES % (AUTO) 3 % (12-44); MEAN CORPUSCULAR HEMOGLOBIN 32 PG (25-34); MEAN CORPUSCULAR HGB CONC 33 G/DL (32-36); MEAN CORPUSCULAR VOLUME 97 FL (80-99); MEAN PLATELET VOLUME 10.9 FL (7.4-10.4); MONOCYTES # (AUTO) 1.9 X 10^3 (0.0-1.0); MONOCYTES % (AUTO) 14 % (0-12); NEUTROPHILS # (AUTO) 11.8 X 10^3 (1.8-7.8); NEUTROPHILS % (AUTO) 83 % (42-75); PLATELET COUNT 146 10^3/uL (130-400); RED BLOOD COUNT 3.24 10^6/uL (4.35-5.85); RED CELL DISTRIBUTION WIDTH 14.3 % (10.0-14.5); WHITE BLOOD COUNT 14.2 10^3/uL (4.3-11.0)
[2017-03-30 05:20] LABS: ALBUMIN 3.1 GM/DL (3.2-4.5); BILIRUBIN,TOTAL 0.3 MG/DL (0.1-1.0); CALCIUM 8.5 MG/DL (8.5-10.1); CREATININE SERUM 2.54 MG/DL (0.60-1.30); MAGNESIUM 1.9 MG/DL (1.8-2.4); PHOSPHORUS 2.1 MG/DL (2.3-4.7); TOTAL PROTEIN 5.7 GM/DL (6.4-8.2)
[2017-03-30] MEDS: MAGNESIUM 1 GM/100 ML IVPB 100 ML IV SCH (06:13)
[2017-03-30] MEDS: POTASSIUM CL 10MEQ/50ML IVPB 50 ML IV SCH (06:13)
[2017-03-30] MEDS: KCL 20 MEQ TAB (K-DUR) PO SCH (06:13)
[2017-03-30] MEDS: RT-ALBUTEROL SULF 2.5 MG/3 ML PRE-MIX VIAL IH SCH ×2 (06:53→19:11)
--- NOTE | 2017-03-30 06:55 | Pulmonary Consultation ---
History of Present Illness History of Present Illness Date of Consultation 03/30/17 06:50 Time Seen by Provider: 06:50 Date of Admission History of Present Illness 87yo with hx of multiple UTIs and follows with Dr Frank presented to secondary to f/c pt was recently tx with BCTM for UTI. PT was dx with acute UTI in the ED and admitted to ICU with abx therapy. I am consulted for ICU management. Allergies and Home Medications Allergies Coded Allergies: Penicillins (Verified Allergy, Unknown, 09/01/06) iodine (Verified Allergy, Unknown, 09/01/06) Home Medications Atenolol 25 Mg Tablet, 25 MG PO DAILY, #30 Ref 0 Prescribed by: MERLINE ERICKSON on 04/19/151814 Atorvastatin Calcium 10 Mg Tablet, 1 TAB PO HS, Ref 0 (Reported) Naproxen Sodium 220 Mg Capsule, 220 MG PO BID, (Reported) Omeprazole 20 Mg Capsule.dr, 20 MG PO DAILY, (Reported) Past Rleqzqg-Iojlio-Tznnoh Hx Patient Social History Alcohol Use: Denies Use Recreational Drug Use: No Smoking Status: Never a Smoker Recent Foreign Travel: No Contact w/Someone Who Travel: No Recent Infectious Disease Expo: No Recent Hopitalizations: Yes Physical Abuse: No Sexual Abuse: No Mistreated: No Fear: No Immunizations Up To Date PED Vaccines UTD: No Date of Pneumonia Vaccine: Jun 28, 2006 Date of Influenza Vaccine: Mar 02, 2015 Surgeries History of Surgeries: Yes Respiratory History of Respiratory Disorde: No Cardiovascular History of Cardiac Disorders: Yes Neurological History of Neurological Disord: No Reproductive System Hx Reproductive Disorders: Yes Genitourinary History of Genitourinary Disor: Yes (uti-current) Genitourinary Disorders: Kidney Stones Gastrointestinal History of Gastrointestinal Di: Yes Gastrointestinal Disorders: Esophagitis Musculoskeletal History of Musculoskeletal Dis: Yes Musculoskeletal Disorders: Arthritis Endocrine History of Endocrine Disorders: No HEENT History of HEENT Disorders: No Cancer History of Cancer: Yes Cancer: Skin Psychosocial History of Psychiatric Problem: No Suicide Risk Score: 0 Integumentary History of Skin or Integumenta: No Blood Transfusions History of Blood Disorders: No Reviewed Nursing Assessment Reviewed/Agree w Nursing PMH: Yes Family Medical History Significant Family History: No Pertinent Family Hx Review of Systems Time Seen by Provider: 07:05 Constitutional: Fever, Chills, Sweats, Weakness, Malaise Eyes: No: Pain, Vision change, Conjunctivae inflammation, Eyelid inflammation, Other, Redness ENT: No: Ear pain, Ear discharge, Nose pain, Nose discharge, Nose congestion, Mouth pain, Mouth swelling, Throat pain, Throat swelling, Other Respiratory: No: Cough, Dry, Shortness of breath, SOB with excertion, Wheezing , Hemoptysis, Pleuritic Pain, Sputum, Wheezing, Other Cardiovascular: No: Chest Pain, Palpitations, Orthopnea, Paroxysmal Noc. Dyspnea, Edema, Lt Headedness, Other Exam Exam Vital Signs Date Time Temp Pulse Resp B/P (MAP) Pulse Ox O2 Delivery O2 Flow Rate FiO2 03/30/17 06:30 83 17 89/53 95 Nasal Cannula 2.00 03/30/17 06:00 85 14 82/48 94 Nasal Cannula 2.00 03/30/17 05:30 85 12 83/50 96 Nasal Cannula 2.00 03/30/17 05:00 89 15 89/48 95 Nasal Cannula 2.00 03/30/17 04:45 90 17 92/49 94 Nasal Cannula 2.00 03/30/17 04:30 90 20 88/47 95 Nasal Cannula 2.00 03/30/17 04:29 98 92 03/30/17 04:15 85 18 101/56 94 Nasal Cannula 2.00 03/30/17 04:00 92 Nasal Cannula 2.00 03/30/17 04:00 88 25 92/53 94 Nasal Cannula 2.00 03/30/17 03:56 92 Nasal Cannula 2.00 03/30/17 03:48 100.9 03/30/17 03:45 91 15 100/50 94 Nasal Cannula 2.00 03/30/17 03:30 94 16 94/51 95 Nasal Cannula 2.00 03/30/17 03:15 99 24 112/59 89 Nasal Cannula 2.00 03/30/17 03:00 97 16 93/50 95 Nasal Cannula 2.00 03/30/17 02:45 97 18 107/58 90 Nasal Cannula 2.00 03/30/17 02:30 98 18 120/56 92 Nasal Cannula 2.00 03/30/17 02:30 98 03/30/17 02:15 65 19 112/56 91 Nasal Cannula 2.00 03/30/17 02:09 103.8 99 22 107/55 92 Nasal Cannula 2.00 03/30/17 02:08 98 18 97 Nasal Cannula 2.00 03/30/17 00:05 95 Nasal Cannula 2.00 03/29/17 23:53 100.6 129 20 88/68 92 Room Air General Appearance: No Apparent Distress, WD/WN HEENT: PERRL/EOMI, Pharynx Normal Neck: Non Tender, Supple Respiratory: Lungs Clear, Normal Breath Sounds Cardiovascular: No Murmur, Tachycardia Capillary Refill: Less Than 3 Seconds Extremity: Normal Capillary Refill, Normal Range of Motion, Non Tender Neurologic/Psychiatric: Alert, Oriented x3 Skin: Normal Color, Warm/Dry Lymphatic: No Adenopathy Results Lab Laboratory Tests 03/30/17 00:00 03/30/17 04:45 Assessment/Plan Assessment/Plan Severe Sepsis with UTI with acute cystitis -Continue sepsis protocol -Continue Rocephin -Aguillon cultures Hypotension -Pt is currently getting a 1 liter bolus per EICU -Will give him 30cc/kg IVF per Sepsis protocol Stage 1 decubitus ulcer -wound care Ureteral stone with hydronephrosis per CT scan 03/29 - urology is consulted 255 Clinical Quality Measures DVT/VTE Risk/Contraindication: Risk Factor Score Per Nursin RFS Level Per Nursing on Admit: 4+=Very High YAZMIN JONES DO Mar 30, 2017 06:55
--- NOTE | 2017-03-30 07:21 | Diagnostic Imaging Report ---
INDICATION: Febrile. UTI. Comparison is made with 04/19/2015. FINDINGS: Portable chest shows the lungs to be well-aerated with no infiltrates or masses. Implanted monitoring tech is noted over the left chest. The heart is not enlarged. There is no pulmonary edema. No hilar adenopathy. No pneumothorax. IMPRESSION: No acute changes. Dictated by: Dictated on workstation # [id number]
[2017-03-30] MEDS ORDERED: INFLUENZA TRIvalent 2017-2018 0.5 ML/45 MCG SYR IM ONE (07:30)
[2017-03-30] MEDS ORDERED: NS IV 1000 ML 2,381.37 ML IV PRN (08:00)
[2017-03-30] MEDS ORDERED: BACL10TA PO (10:14)
[2017-03-30] MEDS ORDERED: SULF-222 PO (10:14)
[2017-03-30] MEDS ORDERED: LEVO500T80 PO (10:14)
[2017-03-30] MEDS ORDERED: METO-387 PO (10:14)
[2017-03-30] MEDS ORDERED: FENO160T12 PO (10:14)
[2017-03-30] MEDS ORDERED: HYDR59LO2 TOP (10:20)
[2017-03-30] MEDS ORDERED: OMEP20CA12 PO (10:20)
[2017-03-30] MEDS ORDERED: ACET325T38 PO (10:20)
[2017-03-30] MEDS ORDERED: PANTOPRAZOLE 20 MG TABLET (PROTONIX) PO PRN (11:45)
--- NOTE | 2017-03-30 11:50 | History & Physical-Hospitalist ---
HPI History of Present Illness: HPI/Chief Complaint CC: Sepsis from UTI HPI: This is a 87 yoWM pt that had fever, chills reported to Dr. Tam, PCP. Started on Bactrim for UTI. CT scan obtained and pt worsened. Max fever 100.9, WBC remains 14, Hgb down to 10.3 from 12, CMP reveals Creat 2.54, lactic acid was 2.88 now 1.46, UA TNTC. Pt empirically placed on Rocephin Pharmacy Review: The choice of Rocephin was discussed so if needed we can expand coverage to Meropenem if needed Pt Review: Pt was resting prior to interview. Pt states he is doing a little better this am and has been breathing better. Pt states his pain is down. Pt denies chills and fever last night, but states they are returning now Pt confirms back surgery at [facility] recently. Pt states he went straight home, not to rehab after this. Pt states he had a rough time. Pt confirms having a bed sore, but he states that this was there prior to the surgery. Physical exam stable. Lungs sound perfect. Abx were discussed. Noted creatinine was 1.47 on pre-op at [facility] when I saw him in consultation for medical management and noted the elevation in the creatinine likely due to CRI, Bactrim and dehydration from sepsis. Scribed by Sherry Dsouza under the direct supervision of Dr. Jerry. Source: patient Exam Limitations: no limitations Date Seen 03/30/17 Time Seen by Provider: 11:00 Attending Physician Jorge L King MD PCP Jese Tam MD Referring Physician Date of Admission Mar 30, 2017 at 00:58 Home Medications & Allergies Home Medications Reviewed patient Home Medication Reconciliation Form Allergies Allergies Coded Allergies Penicillins (Verified Allergy, Unknown, 09/01/06) iodine (Verified Allergy, Unknown, 09/01/06) Past Yftdazm-Xuqfzh-Oalddl Hx Patient Social History Marrital Status: Employed/Student: retired Alcohol Use: Denies Use Recreational Drug Use: No Smoking Status: Never a Smoker Physical Abuse Screen: No Sexual Abuse: No Recent Foreign Travel: No Contact w/other who traveled: No Recent Hopitalizations: Yes Recent Infectious Disease Expo: No Immunizations Up To Date Pediatric: No Date of Pneumonia Vaccine: Jun 28, 2006 Date of Influenza Vaccine: Mar 02, 2015 Surgeries Yes Orthopedic (spinal surgery Dr Sharif 02/15 PSI) Respiratory No Cardiovascular Yes Atrial Fibrillation, High Cholesterol, Hypertension Neurological Yes Neuropathy Reproductive System Hx Reproductive Disorders: Yes Genitourinary Yes (uti-current) Benign Prostatic Hyperpl, Bladder Infection, Kidney Stones Gastrointestinal Yes Gastroesophageal Reflux, Esophagitis, Hiatal Hernia, Ulcer Musculoskeletal Yes Arthritis, Chronic Back Pain Endocrine History of Endocrine Disorders: No HEENT History of HEENT Disorders: No Cancer Yes Skin Psychosocial History of Psychiatric Problem: No Integumentary History of Skin or Integumenta: No Blood Transfusions History of Blood Disorders: No Reviewed Nursing Assessment Reviewed/Agree w Nursing PMH: Yes Family Medical History Significant Family History: No Pertinent Family Hx Review of Systems Constitutional: see HPI, chills, diaphoresis, fever, weakness EENTM: see HPI Respiratory: no symptoms reported Cardiovascular: no symptoms reported Gastrointestinal: nausea, vomiting Genitourinary: dysuria, frequency, hematuria, incontinence (urge), pain Musculoskeletal: back pain Skin: other (sacral decubitus ulcer) Psychiatric/Neurological: No Symptoms Reported Physical Exam Physical Exam Vital Signs Vital Sign - Last 12Hours 03/29/17 03/30/17 23:53 00:05 Temp 100.6 Pulse 129 Resp 20 B/P (MAP) 88/68 Pulse Ox 92 O2 Delivery Room Air O2 Flow Rate 2.00 Capillary Refill : Less Than 3 Seconds General Appearance: No Apparent Distress, WD/WN, Chronically ill Eyes: Bilateral Eye Normal Inspection, Bilateral Eye PERRL HEENT: PERRL/EOMI, Normal ENT Inspection, Pharynx Normal Neck: Full Range of Motion, Normal Inspection, Non Tender, Supple, Carotid Bruit Respiratory: Chest Non Tender, Lungs Clear, Normal Breath Sounds, No Accessory Muscle Use, No Respiratory Distress Cardiovascular: No Edema, No Gallop, No JVD, No Murmur, Normal Peripheral Pulses, Irregularly Irregular Gastrointestinal: Normal Bowel Sounds, No Organomegaly, No Pulsatile Mass, Non Tender, Soft Back: Normal Inspection, No CVA Tenderness, Decreased Range of Motion Extremity: Normal Capillary Refill, Normal Inspection, Normal Range of Motion, Non Tender, No Calf Tenderness, No Pedal Edema Neurologic/Psychiatric: Alert, Oriented x3, No Motor/Sensory Deficits, Depressed Affect Skin: Normal Color, Warm/Dry Lymphatic: No Adenopathy Results Results/Procedures Lab Laboratory Tests 03/30/17 00:00 03/30/17 04:45 Assessment/Plan Admission Diagnosis Assessment: Sepsis due to UTI Sacral decubitus ulcer Chronic debility Recent spine surgery 02/15 Dr Sharif HLP AF HTN Acute on CRF BPH managed by Dr Frank Assessment and Plan Plan: Dr. Murrieta/wound care consult Continue abx Monitor creatinine closely due to multi-factorial cause PT/OT IVF Home meds Clinical Quality Measures DVT/VTE Risk/Contraindication: Risk Factor Score Per Nursin RFS Level Per Nursing on Admit: 4+=Very High CAROL JERRY DO Mar 30, 2017 11:50
[2017-03-30] MEDS: BACLOFEN 10 MG (LIORESAL) TAB PO PRN (12:19)
[2017-03-30] MEDS: HYDROcodone/APAP 5 MG/325 MG (LORTAB) TAB PO PRN ×2 (12:19→21:09)
--- NOTE | 2017-03-30 12:59 | Consultation-Cardiology ---
HPI-Cardiology Cardiology Consultation: Date of Consultation 03/30/17 Date of Admission Attending Physician Jorge L King MD Admitting Physician Jese Tam MD Consulting Physician Lizet SALCEDO MD HPI: Time Seen by Provider: 12:59 Chief Complaint: Paroxysmal atrial fibrillation This is a 87-year-old gentleman who is a patient of Dr. Kelley. He has history of paroxysmal atrial fibrillation. Currently in sinus rhythm. He was previously on aspirin which was discontinued 2 weeks ago before back surgery. He started to complain of fever and chills and was started on Bactrim for UTI. However the patient continues to worsen and was therefore admitted with diagnoses of sepsis. Patient denies any cardiac symptoms. He specifically denies shortness of breath and chest pain. He also does not have any palpitations. Review of Systems-Cardiology Review of Systems Constitutional: chills, fever Eyes: No As described under HPI, No no symptoms reported, No blindness, No blurred vision, No contact lenses, No drainage, No decreased acuity, No foreign body sensation, No glasses, No inflammation, No pain, No photophobia, No previous injury, No shadows, No tunnel vision, No other, No vision change Ears/Nose/Throat: No As described under HPI, No no symptoms reported, No chronic hearing loss, No epistaxis, No ear discharge, No ear pain, No loose teeth, No mouth pain, No mouth swelling, No nasal drainage, No nose pain, No recent hearing loss, No throat pain, No throat swelling, No ulcerations, No other Respiratory: No no symptoms reported, No As described under HPI, No cough, No orthopnea, No shortness of breath, No SOB with excertion, No SOB at rest, No stridor, No wheezing, No other Cardiovascular: No no symptoms reported, No As described under HPI, No chest pain, No edema, No irregular heart rate, No lightheadedness, No palpitations, No syncope, No other Gastrointestinal: No no symptoms reported, No As described under HPI, No abdomen distended, abdominal pain, No blood streaked bowels, No constipation, No diarrhea, No difficulty swallowing, No nausea, No poor appetite, No poor fluid intake, No rectal bleeding, No vomiting, No other, No nausea/vomiting/ diarrhea, No stool coloration changes Genitourinary: No no symptoms reported, As described under HPI, No burning, No dysuria, No discharge, No frequency, No flank pain, No hematuria, No incontinence, No pain, No urgency, No other, No urine frequency changes, No urine coloration changes Musculoskeletal: No no symptoms reported, No As describe under HPI, No back pain, No gout, No joint pain, No joint swelling, No muscle pain, No muscle stiffness, No neck pain, No other Skin: No no symptoms reported, No As described under HPI, No change in color, No change in hair/nails, No dryness, No lesions, No lumps, No rash, No other, No skin related problems, No ulcerations, No rash on exposed areas, No ulcerations on exposed areas Psychiatric/Neurological: No no symptoms reported, No As described under HPI, No anxiety, No depression, No emotional problems, No headache, No numbness, No pre-existing deficit, No seizure, No tingling, No tremors, No weakness, No other , No focal weakness, No syncope All Other Systems Reviewed Negative Unless Noted: Yes [id number] Hx Patient Social History Marrital Status: Employed/Student: retired Alcohol Use: Denies Use Recreational Drug Use: No Smoking Status: Never a Smoker Recent Foreign Travel: No Recent Infectious Disease Expo: No Hospitalization with Isolation: Denies Physical Abuse Screen: No Sexual Abuse: No Immunizations Up To Date Date of Pneumonia Vaccine: Jun 28, 2006 Date of Influenza Vaccine: Mar 02, 2015 Past Medical History PMH As described under Assessment. Allergies and Home Medications Allergies Coded Allergies: Penicillins (Verified Allergy, Unknown, 09/01/06) iodine (Verified Allergy, Unknown, 09/01/06) Home Medications Acetaminophen 325 Mg Tablet, 650 MG PO Q6H PRN for PAIN-MILD, (Reported) Baclofen 10 Mg Tablet, 10 MG PO TID PRN for MUSCLE SPASMS, (Reported) Fenofibrate 160 Mg Tablet, 160 MG PO HS, (Reported) Hydrocortisone 59 Ml Lotion, TOP DAILY PRN for SORE PAIN, (Reported) Levofloxacin 500 Mg Tablet, 500 MG PO DAILY for 10 Days, (Reported) 10 DAY SUPPLY FILLED 03-29-17 Metoprolol Succinate 25 Mg Tab.er.24h, 25 MG PO HS, (Reported) Omeprazole 20 Mg Capsule.dr, 20 MG PO DAILY PRN for HEARTBURN, (Reported) Sulfamethoxazole/Trimethoprim 1 Each Tablet, 1 TAB PO BID for 7 Days, (Reported) 7 DAY SUPPLY FILLED 03-29-17 Physical Exam-Cardiology Physical Exam Vital Signs/I&O Vital Sign - Last 12Hours 03/30/17 03/30/17 03/30/17 03/30/17 03:45 03:48 03:56 04:00 Temp 100.9 Pulse 91 88 Resp 15 25 B/P (MAP) 100/50 92/53 Pulse Ox 94 92 94 O2 Delivery Nasal Cannula Nasal Cannula Nasal Cannula O2 Flow Rate 2.00 2.00 2.00 03/30/17 03/30/17 03/30/17 03/30/17 04:00 04:15 04:29 04:30 Pulse 85 98 90 Resp 18 20 B/P (MAP) 101/56 88/47 Pulse Ox 92 94 92 95 O2 Delivery Nasal Cannula Nasal Cannula Nasal Cannula O2 Flow Rate 2.00 2.00 2.00 03/30/17 03/30/17 03/30/17 03/30/17 04:45 05:00 05:30 06:00 Pulse 90 89 85 85 Resp 17 15 12 14 B/P (MAP) 92/49 89/48 83/50 82/48 Pulse Ox 94 95 96 94 O2 Delivery Nasal Cannula Nasal Cannula Nasal Cannula Nasal Cannula O2 Flow Rate 2.00 2.00 2.00 2.00 03/30/17 03/30/17 03/30/17 03/30/17 06:30 06:53 07:00 07:00 Pulse 83 98 112 Resp 17 14 B/P (MAP) 89/53 108/50 Pulse Ox 95 93 94 O2 Delivery Nasal Cannula Nasal Cannula Nasal Cannula O2 Flow Rate 2.00 1.50 2.00 03/30/17 03/30/17 03/30/17 03/30/17 08:00 08:00 08:00 09:00 Temp 98.9 Pulse 104 89 Resp 18 13 B/P (MAP) 86/47 98/46 Pulse Ox 18 94 O2 Delivery Nasal Cannula Nasal Cannula Nasal Cannula Nasal Cannula O2 Flow Rate 2.00 2.00 2.00 2.00 03/30/17 03/30/17 03/30/17 03/30/17 10:03 11:00 12:00 12:15 Pulse 84 79 85 Resp 13 12 18 B/P (MAP) 108/64 95/56 106/87 Pulse Ox 96 96 96 O2 Delivery Nasal Cannula Nasal Cannula Nasal Cannula Nasal Cannula O2 Flow Rate 2.00 2.00 2.00 2.00 03/30/17 03/30/17 03/30/17 12:21 13:00 14:41 Temp 99.7 98.4 Pulse 85 76 Resp 17 B/P (MAP) 106/87 Pulse Ox 95 O2 Delivery Nasal Cannula O2 Flow Rate 2.00 Intake and Output 03/31/17 00:00 Intake Total 1000 ml Output Total 225 ml Balance 775 ml Capillary Refill : Less Than 3 Seconds Constitutional: No appears stated age, No AAO x 3, No apparent distress, No PERRL, No well-developed, No well-nourished, No other HEENT: No PERRL, No normal ENT inspection, No TMs normal, No pharynx normal, No scleral icterus (R), No scleral icterus (L), No pale conjunctivae (R), No pale conjunctivae (L), No photophobia, No TM abnormal (R), No TM abnormal (L), No pharyngeal erythema, No tonsillar exudate, No other, No discharge, No EOMI, No hearing is well preserved, No hard of hearing, No oral hygience is good, No ulceration, No xanthelasmas are seen Neck: No non-tender, No full range of motion, No supple, No normal inspection, No carotid bruit, No limited range of motion, No lymphadenopathy (R), No lymphadenopathy (L), No tender lateral, No tender midline, No thyromegaly, No other, No carotid pulses are 2 + bilaterally, No with good upstrokes Respiratory: No accessory muscle use, No respiratory distress, No chest tender , No chest expansion is symmetric, No chest is bilaterally symmetric, No lungs clear to percussion, No lungs clear to auscultation, No crackles, No rhonchi, No rales, No stridor, No wheezing, No pleural rub, No other Cardiovascular: regular rate-rhythm, S1 and S2 Gastrointestinal: No tender, No soft, No round, No distended, No pulsatile mass , No organomegaly, No guarding, No rebound, No tenderness, No hernia, No mass, No audible bowel sounds, No abnormal bowel sounds, No abdominal bruits, No spleenomegaly, No other Rectal: deferred Extremities: No normal range of motion, No non-tender, No normal inspection, No pedal edema, No calf tenderness, No normal capillary refill, No pelvis stable , No calf tenderness, No inflammation, No pedal edema, No slow capillary refill , No swelling, No other, No abrasion, No clubbing, No cyanosis, No ecchymosis, No laceration, No no lower extremity edema bilateral, No significant edema, No tenderness, No wound Neurologic/Psychiatric: No assistant athletic trainer II-XII nml as tested, No no motor/sensory deficits, No alert, No normal mood/affect, No oriented x 3, No abnormal cerebellar tests, No abnormal assistant athletic trainer II-XII, No abnormal gait, No aphasia, No EOM palsy, No facial droop, No motor weakness, No sensory deficit, No depressed affect, No disoriented x 3, No other, No grossly intact, No power is 5/5 both on sides Skin: warm/dry, other (stage I decubitus to the area of the coccyx with redness noted. Surgical wounds to the left side of the abdomen are healed without signs and symptoms of infection.) Data Review Labs Laboratory Tests 03/30/17 00:00: White Blood Count 14.1H, Red Blood Count 3.83L, Hemoglobin 12.2L, Hematocrit 37L , Mean Corpuscular Volume 97, Mean Corpuscular Hemoglobin 32, Mean Corpuscular Hemoglobin Concent 33, Red Cell Distribution Width 14.3, Platelet Count 192, Mean Platelet Volume 10.6H, Neutrophils (%) (Auto) 82H, Lymphocytes (%) (Auto) 6L, Monocytes (%) (Auto) 12, Eosinophils (%) (Auto) 0, Basophils (%) (Auto) 0, Neutrophils # (Auto) 11.6H, Lymphocytes # (Auto) 0.8L, Monocytes # (Auto) 1.8H, Eosinophils # (Auto) 0.0, Basophils # (Auto) 0.0, Neutrophils % (Manual) 83, Lymphocytes % (Manual) 4, Monocytes % (Manual) 6, Eosinophils % (Manual) 0, Basophils % (Manual) 0, Band Neutrophils 5, Reactive Lymphocytes 2, Blood Morphology Comment NORMAL, Prothrombin Time 14.6, INR Comment 1.1, Activated Partial Thromboplast Time 29, Sodium Level 135, Potassium Level 4.4, Chloride Level 102, Carbon Dioxide Level 21, Anion Gap 12, Blood Urea Nitrogen 45H, Creatinine 2.73H, Estimat Glomerular Filtration Rate 22, BUN/Creatinine Ratio 16 , Glucose Level 150H, Lactic Acid Level 2.88*H, Calcium Level 9.6, Total Bilirubin 0.5, Aspartate Amino Transf (AST/SGOT) 17, Alanine Aminotransferase ( ALT/SGPT) 11, Alkaline Phosphatase 87, Total Protein 7.1, Albumin 3.8 03/30/17 00:35: Urine Color YELLOW, Urine Clarity VERY CLOUDYH, Urine pH 6, Urine Specific [place] 1.020, Urine Protein 2+H, Urine Glucose (UA) 1+H, Urine Ketones NEGATIVE , Urine Nitrite NEGATIVE, Urine Bilirubin NEGATIVE, Urine Urobilinogen NORMAL, Urine Leukocyte Esterase 3+H, Urine RBC (Auto) 5+H, Urine RBC 2-5H, Urine WBC TNTCH, Urine Squamous Epithelial Cells 0-2, Urine Crystals NONE, Urine Bacteria MODERATEH, Urine Casts NONE, Urine Mucus SMALLH, Urine Culture Indicated YES 03/30/17 01:56: Lactic Acid Level 1.46 03/30/17 04:45: White Blood Count 14.2H, Red Blood Count 3.24L, Hemoglobin 10.3L, Hematocrit 31L , Mean Corpuscular Volume 97, Mean Corpuscular Hemoglobin 32, Mean Corpuscular Hemoglobin Concent 33, Red Cell Distribution Width 14.3, Platelet Count 146, Mean Platelet Volume 10.9H, Neutrophils (%) (Auto) 83H, Lymphocytes (%) (Auto) 3L, Monocytes (%) (Auto) 14H, Eosinophils (%) (Auto) 0, Basophils (%) (Auto) 0, Neutrophils # (Auto) 11.8H, Lymphocytes # (Auto) 0.5L, Monocytes # (Auto) 1.9H, Eosinophils # (Auto) 0.0, Basophils # (Auto) 0.0, Sodium Level 136, Potassium Level 4.0, Chloride Level 107, Carbon Dioxide Level 21, Anion Gap 8, Blood Urea Nitrogen 40H, Creatinine 2.54H, Estimat Glomerular Filtration Rate 24, BUN/ Creatinine Ratio 16, Glucose Level 122H, Calcium Level 8.5, Total Bilirubin 0.3 , Aspartate Amino Transf (AST/SGOT) 18, Alanine Aminotransferase (ALT/SGPT) 9, Alkaline Phosphatase 69, Total Protein 5.7L, Albumin 3.1L, Phosphorus Level 2.1L , Magnesium Level 1.9 Microbiology 03/30/17 Blood Culture - Preliminary, Resulted No growth 03/30/17 Influenza Types A,B Antigen (EDY) - Final, Complete 03/30/17 Urine Culture - Preliminary, Resulted Probable Enterococcus Species Probable E.coli ECG Impression ECG Initial ECG Rhythm: Normal Sinus A/P-Cardiology Assessment/Admission Diagnosis Sepsis, UTI, paroxysmal atrial fibrillation Plan Deferred treatment of sepsis, UTI, renal stones to the primary team and Dr. Frank. Acute on chronic CKD Paroxysmal atrial fibrillation: Currently in sinus rhythm. Previously aspirin discontinued before back surgery. He will be a candidate for oral anticoagulation, however after resolution of renal colic. Patient will be followed by Dr. Kelley from tomorrow. Thank you for your consultation. Please call me if you have any questions. Rodolfo Salcedo MD, FACP, FACC, FSCAI, FHRS, CCDS Interventional Cardiology Cardiac Electrophysiology Vascular Medicine and Endovascular Interventions Clinical Quality Measures DVT/VTE Risk/Contraindication: Risk Factor Score Per Nursin RFS Level Per Nursing on Admit: 4+=Very High Lizet SALCEDO MD Mar 30, 2017 12:59
[2017-03-30] MEDS ORDERED: methylPREDNISolone 40 MG/ML (Solu-MEDROL) VIAL IV NR (14:00)
[2017-03-30] MEDS ORDERED: LIDOCAINE 1% INJ 20 ML (XYLOCAINE) VIAL ONE (14:43)
--- NOTE | 2017-03-30 15:04 | Diagnostic Imaging Report ---
EXAMINATION: Supine view of the abdomen. INDICATION: Right flank pain. FINDINGS: There is a 1.7 cm stone seen in the right flank, compatible with the UPJ stone seen on the CT scan of 03/29/2017. It projects slightly more medially compared to the prior exam. It is uncertain if this reflects a slight change in the patient position and breathing versus actual change in the position of the stone. No other urinary tract stone is identified. Spine fusion hardware involving the L2 to L4 levels is noted. The bowel gas pattern is unremarkable. IMPRESSION: A 1.7 cm right flank stone projects slightly more medial compared to the previous exam. It is uncertain if this represents an actual change in the stone position versus positional change of the kidney and technique differences. Dictated by: Dictated on workstation # [id number]
--- NOTE | 2017-03-30 16:33 | Diagnostic Imaging Report ---
EXAMINATION: Ultrasound-guided access into the renal collecting system. INDICATION: Right hydronephrosis with obstruction at the UPJ. Sepsis. PROCEDURE: Initially ultrasound evaluation of the right kidney demonstrated moderate hydronephrosis. Dilated dorsal calyx is identified for suitable target for access and live ultrasound guidance was utilized to guide placement of a 21-gauge needle into the dorsal calyx of the right renal collecting system. Ultrasound image of good needle position is documented. IMPRESSION: Successful ultrasound guidance utilized for needle access into the right renal collecting system. Dictated by: Dictated on workstation # [id number]
--- NOTE | 2017-03-30 16:45 | Diagnostic Imaging Report ---
EXAMINATION: Percutaneous nephrostomy placement Nephrostogram INDICATION: Right UPJ obstruction related to a stone. Sepsis. CONSENT: Informed consent was obtained from the patient. The risks, benefits, potential complications and alternatives were reviewed and all questions answered to the patient's satisfaction. The patient's vital signs, cardiac rhythm, and pulse oximetry were observed throughout the procedure by qualified nursing personnel. Sedation: None. The patient was already on antibiotics before the procedure. Also dose of steroids was given based on history of contrast allergy. Contrast: 20 mL of Isovue 300. Fluoroscopy time: 3 minutes and 19 seconds PROCEDURE: After maximal sterile barrier technique preparation and draping, 1% lidocaine was utilized for local anesthesia. Ultrasound guidance was utilized for access into the dorsal lower pole calyx. Initial access was obtained with a 21-gauge echo tip needle. Access into the renal collecting system is confirmed with urine return. Contrast injection is performed with images obtained demonstrating the opacified renal collecting system. The images confirm appropriate access and positioning. Subsequently over a 0.018 wire, 5 German catheter is introduced and exchange for a 0.035 wire and further dilatation with an 8 German dilator. This was followed by [id number] insertion of 8.5 German nephrostomy tube with the loop formed in the renal pelvis. The patient tolerated the procedure well with no immediate complications. FINDINGS: There is moderate hydronephrosis. 1.5 cm stone is seen near the UPJ which appears to be mobile at the time of the procedure. Some contrast passage into the mid the ureter is seen. The distal ureter is not imaged at this time to limit the amount of contrast injection. IMPRESSION: 1. Successful placement of right percutaneous nephrostomy tube with the 8.5 German drainage tube left in place. 2. Nephrostogram demonstrates 1.5 cm stone at the UPJ level. There is moderate hydronephrosis. There is some contrast passage into the proximal to mid ureter. The obstruction by the stone is probably intermittent and positional. Dictated by: Dictated on workstation # [id number]
--- NOTE | 2017-03-30 18:53 | CONSULTATION REPORT ---
DATE OF SERVICE: 03/30/2017 ATTENDING PHYSICIAN: Dr. Tam, Dr. King, Dr. Zimmerman. SUMMARY: After reviewing the patient's record in the hospital and at the office, this is an 87-year-old white man known to me for many years with history of prostatitis and a right renal stone that was asymptomatic and observed. Stone decided to move lately and patient presented to his physician, Dr. Tam, with some symptoms. First, a KUB was obtained that revealed over a centimeter stone in the proximal right ureter. We ordered a CAT scan that revealed moderate to high obstruction and stranding. The patient clinically was doing well and he was given an appointment to see me today at the office. However, last night, he became feverish and ill and chilling. The family brought him to the emergency room. He was subsequently admitted with the diagnosis of suspected sepsis, started on Rocephin with some improvement; also, fluids to sustain the sepsis treatment and to sustain his blood pressure. The patient has been feeling relatively well and looking fairly well despite the above. His white count is 14,000. He has a low-grade fever today. History and physical per chart. IMPRESSION: Right proximal ureteral stone with obstruction and suspected sepsis. RECOMMENDATIONS: Taking into consideration the age of the patient and the clinical picture, a percutaneous nephrostomy tube placement will be better than a stent with more success because of the size of the stone and possible impaction, also to avoid any kind of general anesthetic. I discussed with Dr. Castro and he will put the tube today this afternoon. Also, the tube will act as a safety for us to drain the kidney continuously, also after we break the stone into fragments moving down the ureter, so in all aspects a percutaneous will be preferable to a stent. We continue present management, either continue Rocephin or switch him to meropenem. I will leave it up to the hospitalist choice. We will take one day at a time. Hopefully, we will get him free of infection and ready for the ESWL on this coming Tuesday. Otherwise, we will postpone it to the next time two weeks later when the patient comes in to perform and having the percutaneous tube as a safety as I said. This was fully explained to the patient as well as his son. Consent was obtained. Job ID: [id number] DocumentID: [id number] Dictated Date: 03/30/2017 13:38:39 Decision Analyst Date: 03/30/2017 16:49:53 Dictated By: BRONWYN MAZARIEGOS MD
[2017-03-30] MEDS ORDERED: cefTRIAXone INJECTION 1,000 MG in NS (IVPB) 50 ML IV SCH (21:00)
[2017-03-30] MEDS: FENOFIBRATE 134 MG (LOFIBRA) CAPSULE PO SCH (21:08)
[2017-03-31] VITALS (14 sets, daily range): BP systolic 83–153; BP diastolic 35–77
[2017-03-31] MEDS: NS IV 1000 ML 1,000 ML IV SCH ×10 (01:48→18:45)
[2017-03-31 05:06] LABS: BASOPHILS % (AUTO) 0 % (0-10); EOSINOPHILS % (AUTO) 0 % (0-10); LYMPHOCYTES # (AUTO) 0.4 X 10^3 (1.0-4.0); LYMPHOCYTES % (AUTO) 4 % (12-44); MEAN CORPUSCULAR HEMOGLOBIN 32 PG (25-34); MEAN CORPUSCULAR HGB CONC 32 G/DL (32-36); MEAN CORPUSCULAR VOLUME 99 FL (80-99); MEAN PLATELET VOLUME 10.9 FL (7.4-10.4); MONOCYTES # (AUTO) 0.7 X 10^3 (0.0-1.0); MONOCYTES % (AUTO) 6 % (0-12); NEUTROPHILS # (AUTO) 9.5 X 10^3 (1.8-7.8); NEUTROPHILS % (AUTO) 90 % (42-75); PLATELET COUNT 142 10^3/uL (130-400); RED BLOOD COUNT 2.99 10^6/uL (4.35-5.85); RED CELL DISTRIBUTION WIDTH 14.7 % (10.0-14.5); WHITE BLOOD COUNT 10.5 10^3/uL (4.3-11.0)
[2017-03-31 05:46] LABS: ALBUMIN 2.9 GM/DL (3.2-4.5); BILIRUBIN,TOTAL 0.2 MG/DL (0.1-1.0); CALCIUM 8.3 MG/DL (8.5-10.1); CREATININE SERUM 1.75 MG/DL (0.60-1.30); MAGNESIUM 2.2 MG/DL (1.8-2.4); PHOSPHORUS 2.8 MG/DL (2.3-4.7); POTASSIUM 4.4 MMOL/L (3.6-5.0); TOTAL PROTEIN 5.1 GM/DL (6.4-8.2)
[2017-03-31] MEDS: RT-ALBUTEROL SULF 2.5 MG/3 ML PRE-MIX VIAL IH SCH (06:55)
[2017-03-31] MEDS: POTASSIUM CL 10MEQ/50ML IVPB 50 ML IV SCH (07:17)
[2017-03-31] MEDS: MAGNESIUM 1 GM/100 ML IVPB 100 ML IV SCH (07:17)
[2017-03-31] MEDS: KCL 20 MEQ TAB (K-DUR) PO SCH (07:18)
[2017-03-31] MEDS ORDERED: VANCOMYCIN INJECTION 1,750 MG in NS IV 500 ML 500 ML IV NR (07:35)
--- NOTE | 2017-03-31 07:41 | Diagnostic Imaging Report ---
INDICATION: Urinary tract infection. Portable chest 4:52 AM. Heart size and pulmonary vascularity are normal. Lungs are clear. There are no effusions or pneumothoraces. IMPRESSION: Negative chest. Dictated by: Dictated on workstation # [id number]
--- NOTE | 2017-03-31 07:50 | Pulmonary Progress Note ---
Subjective Time Seen by Provider: 07:54 Subjective/Events-last exam Pt is doing much better today. Exam Exam Vital Signs Date Time Temp Pulse Resp B/P (MAP) Pulse Ox O2 Delivery O2 Flow Rate FiO2 03/31/17 06:55 94 Nasal Cannula 1.50 03/31/17 06:00 67 13 127/63 97 Nasal Cannula 2.00 03/31/17 05:00 62 10 120/65 96 Nasal Cannula 2.00 03/31/17 04:00 56 16 83/35 97 Nasal Cannula 2.00 03/31/17 04:00 Nasal Cannula 2.00 03/31/17 04:00 98.8 03/31/17 03:00 70 9 102/56 95 Nasal Cannula 2.00 03/31/17 02:00 75 14 102/77 95 Nasal Cannula 2.00 03/31/17 01:00 70 9 98/69 95 Nasal Cannula 2.00 03/31/17 01:00 70 03/31/17 00:00 Nasal Cannula 2.00 03/31/17 00:00 75 12 91/54 94 Nasal Cannula 2.00 03/31/17 00:00 99.0 03/30/17 23:00 75 11 105/58 95 Nasal Cannula 2.00 03/30/17 22:00 80 12 93/53 92 Nasal Cannula 2.00 03/30/17 21:00 90 14 97/54 91 Nasal Cannula 2.00 03/30/17 20:00 Nasal Cannula 2.00 03/30/17 20:00 99.5 88 12 106/60 93 Nasal Cannula 2.00 03/30/17 19:11 92 Nasal Cannula 1.50 03/30/17 19:00 73 03/30/17 19:00 71 13 95/53 93 Nasal Cannula 2.00 03/30/17 18:00 80 15 102/56 92 Nasal Cannula 2.00 03/30/17 17:00 77 15 100/51 91 Nasal Cannula 2.00 03/30/17 16:34 97.7 03/30/17 16:30 Nasal Cannula 2.00 03/30/17 16:00 75 16 100/52 95 Nasal Cannula 2.00 03/30/17 15:45 86 22 110/60 99 Nasal Cannula 2.00 03/30/17 15:30 74 14 97/55 97 Nasal Cannula 2.00 03/30/17 15:15 73 14 96/53 98 Nasal Cannula 2.00 03/30/17 15:00 71 16 99/56 97 Nasal Cannula 2.00 03/30/17 14:45 72 18 103/53 97 Nasal Cannula 2.00 03/30/17 14:41 98.4 03/30/17 14:00 71 12 95/45 94 Nasal Cannula 2.00 03/30/17 13:00 76 03/30/17 13:00 76 11 101/51 96 Nasal Cannula 2.00 03/30/17 12:21 99.7 85 17 106/87 95 Nasal Cannula 2.00 03/30/17 12:15 Nasal Cannula 2.00 03/30/17 12:00 85 18 106/87 96 Nasal Cannula 2.00 03/30/17 11:00 79 12 95/56 96 Nasal Cannula 2.00 03/30/17 10:03 84 13 108/64 96 Nasal Cannula 2.00 03/30/17 09:00 89 13 98/46 94 Nasal Cannula 2.00 03/30/17 08:00 98.9 Nasal Cannula 2.00 03/30/17 08:00 Nasal Cannula 2.00 03/30/17 08:00 104 18 86/47 18 Nasal Cannula 2.00 General Appearance: No Apparent Distress, WD/WN, Chronically ill HEENT: PERRL/EOMI, Normal ENT Inspection, Pharynx Normal Neck: Full Range of Motion, Normal Inspection, Non Tender, Supple, Carotid Bruit Respiratory: Chest Non Tender, Lungs Clear, Normal Breath Sounds, No Accessory Muscle Use, No Respiratory Distress Cardiovascular: No Edema, No Gallop, No JVD, No Murmur, Normal Peripheral Pulses, Irregularly Irregular Capillary Refill: Less Than 3 Seconds Extremity: Normal Capillary Refill, Normal Inspection, Normal Range of Motion, Non Tender, No Calf Tenderness, No Pedal Edema Neurologic/Psychiatric: Alert, Oriented x3, No Motor/Sensory Deficits, Depressed Affect Skin: Normal Color, Warm/Dry Lymphatic: No Adenopathy Results Lab Laboratory Tests 03/30/17 00:00 03/30/17 04:45 03/31/17 04:50 Assessment/Plan Assessment/Plan Severe Sepsis with UTI with acute cystitis -- much improved today secondary to ESBL Ecoli and Enterococcus -ESBL in urine - Pt needs contact isolation -Change Abx to Merrem and Vanco -Continue sepsis protocol Hypotension-- now resolved - responded to IVF Stage 1 decubitus ulcer -wound care Ureteral stone with hydronephrosis per CT scan 03/29 - urology is consulted PT is ok to transfer to 4th floor if ok with Urology. I will sign off once pt transfers out of ICU please call with any questions or concerns. 233 Clinical Quality Measures DVT/VTE Risk/Contraindication: Risk Factor Score Per Nursin RFS Level Per Nursing on Admit: 4+=Very High YAZMIN JONES DO Mar 31, 2017 07:50
[2017-03-31] MEDS: HYDROcodone/APAP 5 MG/325 MG (LORTAB) TAB PO PRN (09:03)
[2017-03-31] MEDS: ACETAMINOPHEN 325 MG TABLET/CAPLET (TYLENOL) PO PRN (09:04)
[2017-03-31] MEDS: MEROPENEM 500 MG in NS (IVPB) 100 ML IV SCH ×3 (09:05→18:17)
--- NOTE | 2017-03-31 09:48 | Pre-Procedure Progress Note ---
Pre-Procedure Progress Note H&P Reviewed The H&P was reviewed, patient examined and no changes noted. Date H&P Reviewed: Mar 30, 2017 Time H&P Reviewed: 13:00 Pre-Procedure Diagnosis: 0rith hydronephrosis with infection VIRGILIO GUERRA MD Mar 31, 2017 09:48
--- NOTE | 2017-03-31 11:37 | Progress Note-Hospitalist ---
Progress Note HPI/CC on Admission CC: Sepsis from UTI HPI: This is a 87 yoWM pt that had fever, chills reported to Dr. Tam, PCP. Started on Bactrim for UTI. CT scan obtained and pt worsened. Max fever 100.9, WBC remains 14, Hgb down to 10.3 from 12, CMP reveals Creat 2.54, lactic acid was 2.88 now 1.46, UA TNTC. Pt empirically placed on Rocephin Pharmacy Review: The choice of Rocephin was discussed so if needed we can expand coverage to Meropenem if needed Pt Review: Pt was resting prior to interview. Pt states he is doing a little better this am and has been breathing better. Pt states his pain is down. Pt denies chills and fever last night, but states they are returning now Pt confirms back surgery at [facility] recently. Pt states he went straight home, not to rehab after this. Pt states he had a rough time. Pt confirms having a bed sore, but he states that this was there prior to the surgery. Physical exam stable. Lungs sound perfect. Abx were discussed. Noted creatinine was 1.47 on pre-op at [facility] when I saw him in consultation for medical management and noted the elevation in the creatinine likely due to CRI, Bactrim and dehydration from sepsis. Scribed by Sherry Dsouza under the direct supervision of Dr. Jerry. Progress Notes/Assess & Plan Date Seen 03/31/17 Time Seen by Provider: 11:00 Admission Dx/Process Assessment: Sepsis due to UTI Sacral decubitus ulcer Chronic debility Recent spine surgery 02/15 Dr Sharif HLP AF HTN Acute on CRF BPH managed by Dr Zac Slaughter/Assessment & Plan Chart Review: WBC 10.5 Hgb 9.5 Creat 1.75 down from 2.54 on admit Pharmacy Review: ESBL positive bacteria is growing out Pt is on Meropenem and Vanc right now Pt has nephrostomy tube Creat is 1.75 ac/dc rewinder: Pt okay to go to floor Pt is afebrile Patient Interview: Pt was visited by a relative who inquired about his infection and the abx the pt is on. Pt states he is doing better. Pt confirms BMs and states he has had three since yesterday Physical exam stable. Lungs sound perfect Pt denies needing any other pain meds at this time, but he is unsure if the dosage was right. I assured the pt that I will check them. AFVSS, Pleasant, O x 3, improved, lying on right side of bed Irr Irr, CTAB No edema Laboratory Tests 03/31/17 04:50 Assessment: Sepsis due to UTI with ESBL and Entero on BCx w/obstruction from kidney stone s/ p nephrostomy tube yesterday by IR Sacral decubitus ulcer Dr Murrieta consulted Chronic debility PT/OT consulted and IRU referral made Recent spine surgery 02/23/17 Dr Sharif HLP AF HTN Acute on CRF improved today since drained kidney with Nephro tube BPH managed by Dr Frank Plan: Dr. Murrieta/wound care consult is appreciated Continue abx of Vanc and Nikky Monitor creatinine closely due to multi-factorial cause PT/OT IVF Home meds Transfer to 4th floor IRU Scribed by Sherry Dsouza under direct supervision of Dr. Sarina Jerry. SARINA JERRY DO Mar 31, 2017 11:37
--- NOTE | 2017-03-31 13:03 | Cardiology Progress Note ---
Cardiology SOAP Progress Note Subjective: No cardiac complaints Objective: I&O/Vital Signs Vital Sign - Last 12Hours 03/31/17 03/31/17 03/31/17 03/31/17 02:00 03:00 04:00 04:00 Temp 98.8 Pulse 75 70 Resp 14 9 B/P (MAP) 102/77 102/56 Pulse Ox 95 95 O2 Delivery Nasal Cannula Nasal Cannula Nasal Cannula O2 Flow Rate 2.00 2.00 2.00 03/31/17 03/31/17 03/31/17 03/31/17 04:00 05:00 06:00 06:55 Pulse 56 62 67 Resp 16 10 13 B/P (MAP) 83/35 120/65 127/63 Pulse Ox 97 96 97 94 O2 Delivery Nasal Cannula Nasal Cannula Nasal Cannula Nasal Cannula O2 Flow Rate 2.00 2.00 2.00 1.50 03/31/17 03/31/17 03/31/17 03/31/17 07:00 07:00 07:00 08:00 Temp 98.1 Pulse 79 81 Resp 13 B/P (MAP) 115/68 Pulse Ox 100 97 O2 Delivery Nasal Cannula Nasal Cannula O2 Flow Rate 2.00 2.00 03/31/17 03/31/17 03/31/17 03/31/17 08:00 09:00 10:00 11:00 Pulse 102 104 98 90 Resp 12 16 10 8 B/P (MAP) 153/66 135/74 (94) 120/68 (85) 114/67 (83) Pulse Ox 95 95 97 95 O2 Delivery Nasal Cannula Nasal Cannula Nasal Cannula Nasal Cannula O2 Flow Rate 2.00 2.00 2.00 2.00 03/31/17 12:00 Pulse Ox 97 O2 Delivery Nasal Cannula O2 Flow Rate 1.00 Weight (Pounds): 176 Weight (Ounces): 3.0 Weight (Calculated Kilograms): [id number] Constitutional: No appears stated age, No AAO x 3, No apparent distress, No PERRL, No well-developed, No well-nourished, No other Respiratory: No accessory muscle use, No respiratory distress, No chest tender , No chest expansion is symmetric, No chest is bilaterally symmetric, No lungs clear to percussion, No lungs clear to auscultation, No crackles, No rhonchi, No rales, No stridor, No wheezing, No pleural rub, No other Cardiovascular: regular rate-rhythm, S1 and S2 Gastrointestional: No tender, No soft, No round, No distended, No pulsatile mass, No organomegaly, No guarding, No rebound, No tenderness, No hernia, No mass, No audible bowel sounds, No abnormal bowel sounds, No abdominal bruits, No spleenomegaly, No other Extremities: No normal range of motion, No non-tender, No normal inspection, No pedal edema, No calf tenderness, No normal capillary refill, No pelvis stable , No calf tenderness, No inflammation, No pedal edema, No slow capillary refill , No swelling, No other, No abrasion, No clubbing, No cyanosis, No ecchymosis, No laceration, No no lower extremity edema bilateral, No significant edema, No tenderness, No wound Neurologic/Psychiatric: No housing property manager II-XII nml as tested, No no motor/sensory deficits, No alert, No normal mood/affect, No oriented x 3, No abnormal cerebellar tests, No abnormal housing property manager II-XII, No abnormal gait, No aphasia, No EOM palsy, No facial droop, No motor weakness, No sensory deficit, No depressed affect, No disoriented x 3, No other, No grossly intact, No power is 5/5 both on sides Skin: warm/dry, other (stage I decubitus to the area of the coccyx with redness noted. Surgical wounds to the left side of the abdomen are healed without signs and symptoms of infection.) Results/Procedures: Labs Laboratory Tests 03/31/17 04:50: White Blood Count 10.5, Red Blood Count 2.99L, Hemoglobin 9.5L, Hematocrit 30L, Mean Corpuscular Volume 99, Mean Corpuscular Hemoglobin 32, Mean Corpuscular Hemoglobin Concent 32, Red Cell Distribution Width 14.7H, Platelet Count 142, Mean Platelet Volume 10.9H, Neutrophils (%) (Auto) 90H, Lymphocytes (%) (Auto) 4L, Monocytes (%) (Auto) 6, Eosinophils (%) (Auto) 0, Basophils (%) (Auto) 0, Neutrophils # (Auto) 9.5H, Lymphocytes # (Auto) 0.4L, Monocytes # (Auto) 0.7, Eosinophils # (Auto) 0.0, Basophils # (Auto) 0.0, Sodium Level 141, Potassium Level 4.4, Chloride Level 115H, Carbon Dioxide Level 18L, Anion Gap 8, Blood Urea Nitrogen 31H, Creatinine 1.75H, Estimat Glomerular Filtration Rate 37, BUN/ Creatinine Ratio 18, Glucose Level 178H, Calcium Level 8.3L, Phosphorus Level 2.8, Magnesium Level 2.2, Total Bilirubin 0.2, Aspartate Amino Transf (AST/SGOT ) 17, Alanine Aminotransferase (ALT/SGPT) 13, Alkaline Phosphatase 63, Total Protein 5.1L, Albumin 2.9L Microbiology 03/30/17 Blood Culture - Preliminary, Resulted Probable Enterococcus Species 03/30/17 Gram Stain - Final, Resulted 03/30/17 Anaerobic Culture, Resulted Pending 03/30/17 Body Fluid Culture - Preliminary, Resulted Probable Enterococcus Species 03/30/17 Influenza Types A,B Antigen (EDY) - Final, Complete 03/30/17 Urine Culture - Final, Complete Enterococcus Faecalis Escherichia Coli A/P: Assessment/Dx: Sepsis, UTI, paroxysmal atrial fibrillation Plan: Deferred treatment of sepsis, UTI, renal stones to the primary team and Dr. Frank. Acute on chronic CKD Paroxysmal atrial fibrillation: Currently in sinus rhythm. Previously aspirin discontinued before back surgery. Aspirin will be restarted once okay with surgery team. Continue Toprol-XL. Thank you for your consultation. Please call me if you have any questions. Rodolfo Salcedo MD, FACP, FACC, FSCAI, FHRS, CCDS Interventional Cardiology Cardiac Electrophysiology Vascular Medicine and Endovascular Interventions Lizet SALCEDO MD Mar 31, 2017 1:02 pm
[2017-03-31] MEDS: BACLOFEN 10 MG (LIORESAL) TAB PO PRN ×2 (13:12→22:00)
--- NOTE | 2017-03-31 14:57 | Physical Therapy Evaluation ---
PT Evaluation-General Medical Diagnosis Admission Date Mar 30, 2017 at 00:58 Medical Diagnosis: Severe Sepsis, UTI, Stage I Decubitus Ulcer Onset Date: Mar 29, 2017 Therapy Diagnosis Therapy Diagnosis: weakness Height/Weight Height (Feet): 5 Height (Inches): 8.00 Weight (Pounds): 176 Weight (Ounces): 3.0 Precautions Precautions/Isolations: Fall Prevention, Standard Precautions, Contact/Enteric Isolation Weight Bear Status Right Lower Extremity: Right Full Weight Bearing Left Lower Extremity: Left Full Weight Bearing Referral Physician: Dr. Sarina Zimmerman Reason for Referral: Evaluation/Treatment Medical History Pertinent Medical History: Atrial Fib, Arthritis, HTN Additional Medical History Esophagitis, skin cancer, acute on chronic respiratory failure Reviewed History: Yes Social History Home: Single Level Current Living Status: Spouse Entry Into Home: Stairs With Railing PT Steps Into Home: 3 Home office in basement where he spends everyday Prior/Core FIM Prior Level of Function Functional [place] Measure 0=Not Assessed/NA 4=Minimal Assistance 1=Total Assistance 5=Supervision or Setup 2=Maximal Assistance 6=Modified [place] 3=Moderate Assistance 7=Complete [place] Bed Mobility: 7 Transfers (B,C,W/C) (FIM): 7 Gait: 7 Locomotion: 7 PT Evaluation-Current Subjective Patient is seated in recliner upon PT entering the room. Patient mentions he is not in great shape now compared to before admittance into the hospital. He agrees to PT and is eager to get up and walk. Pain Numeric Pain Scale: 0-No Pain Location: No Pain Reported Pt/Family Goals Patient wishes to return to healthy status. Objective Patient Orientation: Normal For Age Problem Solving: Good Attachments: IV ROM/Strength ROM Upper Extremities WNL ROM Lower Extremities WNL Strength Upper Extremities WNL Strength Lower Extremities WNL Integumentary/Posture Integumentary intact sacral wound has been present for over a month Bowel Incontinence: No Bladder Incontinence: No Neuromuscular (Tone, Coordination, Reflexes) normal Sensory Vision: Functional Hearing: Functional Hand Dominance: Right Sensation Right Upper Extremit: Intact Sensation Left Upper Extremity: Intact Sensation Right Lower Extremit: Intact Sensation Left Lower Extremity: Intact Transfers Functional [place] Measure 0=Not Assessed/NA 4=Minimal Assistance 1=Total Assistance 5=Supervision or Setup 2=Maximal Assistance 6=Modified [place] 3=Moderate Assistance 7=Complete [place] Transfers (B, C, W/C) (FIM): 5 Scootin Sit to/from Stand: 5 Patient performed all transfers with SBA from PT. Patient deemed safe with all transfers. Gait Mode of Locomotion: Walk Gait (FIM): 5 Distance: 200 Gait Level of Assist: 5 Gait Persons Needed: 1 Gait Assistive Device: FWW Comments/Gait Description Patient walked with short shuffling gait pattern with FWW. It is noted that his shoes appeared to be loose. Balance Sitting Static: Normal Sitting Dynamic: Normal Standing Static: Normal Standing Dynamic: Normal Assessment/Needs Patient seems to tolerate all therapeutic interventions well. He transferred and walked in a safe manner. PT will provide therapeutic intervention and gait training to improve health status of this patient. Rehab Potential: Good PT Detention Goals Assembly Cleaner Goals PT Assembly Cleaner Goals Time Frame: Apr 07, 2017 Transfers (B,C,W/C) (FIM): 6 Gait (FIM): 6 Distance: >300' Gait Level of Assist: 6 Gait Assistive Device: FWW PT Plan Problem List Problem List: Activity Tolerance, Functional Strength, Safety, Balance, Gait Treatment/Plan Treatment Plan: Continue Plan of Care Treatment Plan: Education, Functional Activity [place], Functional Strength, Gait , Safety, Therapeutic Exercise Treatment Duration: Apr 07, 2017 Frequency: 6 times per week Estimated Hrs Per Day: .25 hour per day Patient and/or Family Agrees t: Yes Safety Risks/Education Patient Education: Gait Training, Reviewed Precautions, Safety Issues Teaching Recipient: Patient Teaching Methods: Demonstration, Discussion Response to Teaching: Verbalize Understanding, Return Demonstration Discharge Recommendations Therapy D/C Recommendations: Home w/ Family Support Equpiment Recommendations-D/C: Front Wheeled Walker Time/GCodes Time In: 1325 Time Out: 1345 Total Billed Treatment Time: 20 Total Billed Treatment 1 visit EVM 20 min ISABELLA COE PT Mar 31, 2017 14:57
--- NOTE | 2017-03-31 15:52 | Occupational Therapy Eval ---
OT Evaluation-General/PLF Medical Diagnosis Admission Date Mar 30, 2017 at 00:58 Medical Diagnosis: Severe Sepsis, UTI, Stage I Decubitus Ulcer Onset Date: Mar 29, 2017 Therapy Diagnosis Therapy Diagnosis: decr self care, decr activity tolerance Height/Weight Height (Feet): 5 Height (Inches): 8.00 Weight (Pounds): 176 Weight (Ounces): 3.0 Precautions Precautions/Isolations: Fall Prevention, Standard Precautions, Contact/Enteric Isolation Safety Interventions: None Referral Physician: Dr. Sarina Zimmerman Referral Reason: Evaluation/Treatment Medical History Pertinent Medical History: Atrial Fib, Arthritis, GERD, HTN, Neuropathy, Renal Insufficiency Additional Medical History recent back surgery about 1 month ago. Esophagitis. Chronic debility. Hiatal hernia, ulcer. Chronic back pain. Skin cancer. Pt reported reverse total shoulder on L, carpal tunnel and cubital tunnel surgery L UE Current History Admitted with fever, chills, shaking. has stage 1 decubitus ulcer on coccyx. nephrostomy tube placement Reviewed History: Yes Social History Home: Single Level Current Living Status: Spouse Entry Into Home: Stairs With Railing Steps Into Home: 3 ADL-Prior Level of Function ADL PLOF Comments Pt reported that he has been able to manage all of his basic self care needs prior to admission. 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 DME/Equipment Comments unknown DME Occupation: retired Drive Self: Yes OT Current Status Subjective Pt seen in room, up in recliner, agreeable to OT. Pt reported pain 0/10. Appearance Alert, cooperative Mental Status/Objective Patient Orientation: Person, Place, Time, Situation Attachments: Drains, IV Current Glasses/Contacts: Yes Hand Dominance: Left Upper Extremity ROM grossly WFL bilat Upper Extremity Sensation Pt reported numbness L little finger and half L ring finger Upper Extremity Strength Grossly 4/5 bilat Edema: Pt reported increasing edema in feet ADL-Treatment ADL-Current Pt got up out of recliner with SBA, FWW. Walked to bathroom with SBA, FWW, OT managing IV pole. Pt toileted, stood to shave and brush teeth (stood at least 20 minutes), walked to bed and got into bed with SBA. Shoes off without assistance. Tended to leave walker. Pt left up in bed, 3 rails up, all needs met. Functional [place] Measure 0=Not Assessed/NA 4=Minimal Assistance 1=Total Assistance 5=Supervision or Setup 2=Maximal Assistance 6=Modified [place] 3=Moderate Assistance 7=Complete IndependenceIRFPAI Quality Coding Scale 6 Independent with activity with or without an assistive device 5 Patient requires set up or clean up by helper. Patient completes activity by themselves 4 Supervision or touching assist (CGA). [place] provide cues , steadying assist 3 The helper provides less than half the effort to complete the activity 2 The helper provides more than half the effort to complete the activity 1 Dependent. The helper does all the effort to complete an activity 7 Patient refused to complete or attempt activity 9 The patient did not perform the activity before the current illness or injury 88 Not attempted due to Medical conditions or safety concerns Grooming (FIM): 5 (brushed teeth, shaved, combed hair, washed face and hands, standing at sink. Stood at least 20 minutes with no LOB and did not need to sit) Toileting (FIM): 5 (Pt managed clothing and hygiene, tall toilet, grab bar) Toilet/Commode Transfer (FIM): 5 (On/off tall toilet, grab bar, FWW) Pt requested shower later today - info shared with nursing. Education OT Patient Education: Purpose of tx/functional activities, Rehab process, Safety issues (walker) Teaching Recipient: Patient Teaching Methods: Discussion Response to Teaching: Verbalize Understanding OT Usp Goals Usp Goals Time Frame: Apr 07, 2017 Eating (FIM): 6 Grooming(FIM): 6 Bathing(FIM): 6 Upper Body Dressing(FIM): 6 Lower Body Dressing(FIM): 6 Toileting(FIM): 6 Toilet/Commode Transfer(FIM): 6 Shower Transfer(FIM): 6 Additional Goals: 2-Verbalize Understanding, 3-ImproveStrength/Rudolph 1=Demonstrate adherence to instructed precautions during ADL tasks. 2=Patient will verbalize/demonstrate understanding of assistive devices/ modifications for ADL. 3=Patient will improve strength/tolerance for activity to enable patient to perform ADL's. OT Education/Plan Problem List/Assessment Assessment: Decreased Activ Tolerance, Decreased UE Strength, Impaired Self- Care Skills Pt would benefit from short course of OT to increase independence in basic ADLs and activity tolerance. Discharge Recommendations Plan/Recommendations: Continue POC Therapy D/C Recommendations: Home w/ Family Support Target Placement home Treatment Plan/Plan of Care Treatment,Training & Education: Yes Patient would benefit from OT for education, treatment and training to promote independence in ADL's, mobility, safety and/or upper extremity function for ADL' s. Plan of Care: ADL Retraining, UE Funct Exercise/Act, OTHER (energy conservation education as appropriate) Treatment Duration: Apr 07, 2017 Frequency: 5 times per week Estimated Hrs Per Day: .5 hour per day Agreement: Yes Rehab Potential: Good Time/GCodes Start Time: 14:32 Stop Time: 15:12 Total Time Billed (hr/min): 40 Billed Treatment Time visit, 10 minutes evaluation low intensity, 30 minutes ADL AYE SORENSON OT Mar 31, 2017 15:52
[2017-03-31] MEDS: FENOFIBRATE 134 MG (LOFIBRA) CAPSULE PO SCH (20:17)
[2017-04-01] VITALS: BP 111/54
[2017-04-01] MEDS: HYDROcodone/APAP 5 MG/325 MG (LORTAB) TAB PO PRN (00:01)
[2017-04-01] MEDS: ACETAMINOPHEN 325 MG TABLET/CAPLET (TYLENOL) PO PRN (00:03)
[2017-04-01] MEDS: MEROPENEM 500 MG in NS (IVPB) 100 ML IV SCH ×2 (00:38→06:17)
[2017-04-01 04:00] VITALS: BP 115/64
[2017-04-01 05:20] LABS: BASOPHILS % (AUTO) 0 % (0-10); EOSINOPHILS % (AUTO) 0 % (0-10); LYMPHOCYTES # (AUTO) 0.9 X 10^3 (1.0-4.0); LYMPHOCYTES % (AUTO) 11 % (12-44); MEAN CORPUSCULAR HEMOGLOBIN 32 PG (25-34); MEAN CORPUSCULAR HGB CONC 33 G/DL (32-36); MEAN CORPUSCULAR VOLUME 97 FL (80-99); MONOCYTES % (AUTO) 12 % (0-12); NEUTROPHILS # (AUTO) 6.3 X 10^3 (1.8-7.8); NEUTROPHILS % (AUTO) 78 % (42-75); PLATELET COUNT 184 10^3/uL (130-400); RED BLOOD COUNT 3.01 10^6/uL (4.35-5.85); RED CELL DISTRIBUTION WIDTH 14.8 % (10.0-14.5); WHITE BLOOD COUNT 8.1 10^3/uL (4.3-11.0)
[2017-04-01 05:41] LABS: ALBUMIN 2.8 GM/DL (3.2-4.5); BILIRUBIN,TOTAL 0.1 MG/DL (0.1-1.0); CALCIUM 8.5 MG/DL (8.5-10.1); CREATININE SERUM 1.48 MG/DL (0.60-1.30); MAGNESIUM 1.9 MG/DL (1.8-2.4); PHOSPHORUS 1.8 MG/DL (2.3-4.7); POTASSIUM 4.2 MMOL/L (3.6-5.0); TOTAL PROTEIN 5.3 GM/DL (6.4-8.2)
[2017-04-01] MEDS: BACLOFEN 10 MG (LIORESAL) TAB PO PRN (06:47)
--- NOTE | 2017-04-01 07:44 | Diagnostic Imaging Report ---
Portable upright radiograph of the chest. INDICATION: Sepsis. COMPARISON: 03/31/2017. FINDINGS: The lungs demonstrate chronic-appearing interstitial prominence without focal infiltrate. The heart size is normal. No effusion or pneumothorax. Mediastinum and renae appear unremarkable. Cardiac pulse generator and left shoulder replacement is seen. IMPRESSION: No acute process. Dictated by: Dictated on workstation # [id number]
[2017-04-01] MEDS ORDERED: VANCOMYCIN 1250 MG/NS 250 ML IVPB IV SCH ×2 (08:00)
--- NOTE | 2017-04-01 11:17 | Occupational Ther Daily Note ---
OT Current Status-Daily Note Subjective Pt alert, sitting in recliner. Pt agreed to therapy. No c/o pain. Mental Status/Objective Patient Orientation: Person, Place, Time, Situation Functional [place] Measure 0=Not Assessed/NA 4=Minimal Assistance 1=Total Assistance 5=Supervision or Setup 2=Maximal Assistance 6=Modified [place] 3=Moderate Assistance 7=Complete [place] ADL-Treatment Per nrsg notes, pt completed shower with assist only for washing his back. Pt is able to doff socks and min A to don socks due to previous back surgery, precautions on bending/twisting. Pt educated on donning sock with one hand. Pt able to bring foot up to edge of chair. After therapy, pt sitting in recliner with call light/phone in reach. All needs met in room. Other Treatment Pt completed medium resistance theraband UE exercises. 3 exercises 2 sets 10 reps each to increase strength for daily functional tasks. Education OT Patient Education: Exercise program, Modified ADL techniques Teaching Recipient: Patient Teaching Methods: Demonstration, Discussion Response to Teaching: Verbalize Understanding, Return Demonstration OT Short Term Goals Short Term Goals 1=Demonstrate adherence to instructed precautions during ADL tasks. 2=Patient will verbalize/demonstrate understanding of assistive devices/ modifications for ADL. 3=Patient will improve strength/tolerance for activity to enable patient to perform ADL's. OT Child Care Attendant School Goals Nursing Home Goals Time Frame: Apr 07, 2017 Eating (FIM): 6 Grooming(FIM): 6 Bathing(FIM): 6 Upper Body Dressing(FIM): 6 Lower Body Dressing(FIM): 6 Toileting(FIM): 6 Toilet/Commode Transfer(FIM): 6 Shower Transfer(FIM): 6 Additional Goals: 2-Verbalize Understanding, 3-ImproveStrength/[place] 1=Demonstrate adherence to instructed precautions during ADL tasks. 2=Patient will verbalize/demonstrate understanding of assistive devices/ modifications for ADL. 3=Patient will improve strength/tolerance for activity to enable patient to perform ADL's. OT Education/Plan Problem List/Assessment Pt would benefit from short course of OT to increase independence in basic ADLs and activity tolerance. Discharge Recommendations Plan/Recommendations: Continue POC Treatment Plan/Plan of Care Patient would benefit from OT for education, treatment and training to promote independence in ADL's, mobility, safety and/or upper extremity function for ADL' s. Plan of Care: ADL Retraining, UE Funct Exercise/Act, OTHER (energy conservation education as appropriate) Treatment Duration: Apr 07, 2017 Frequency: 5 times per week Estimated Hrs Per Day: .5 hour per day Agreement: Yes Rehab Potential: Good Time/GCodes Start Time: 11:30 Stop Time: 11:53 Total Time Billed (hr/min): 23 Billed Treatment Time 1 visit-FA 1 (10 min) EX 1 (13 min) DIONY EDWARDS Apr 01, 2017 11:17
--- NOTE | 2017-04-01 11:30 | Discharge Summary-Hospitalist ---
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 Murrieta/wound care consult is appreciated Continue abx of Vanc and Nikky Monitor creatinine closely due to multi-factorial cause PT/OT IVF Home meds Transfer IRU Scribed by Sherry Dsouza under direct supervision of Dr. Sarina Jerry. 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 Pt states it is not bad though Patient Interview: Pt states he is doing better. Abx were discussed and pt will need IV abx. In-pt rehab until 04/06/17 was discussed and pt is okay with this to finish his abx Physical exam stable. Lungs sound perfect Dr. Frank will be able to blast stone on 04/06/17 Labs discussed and look good Sore on buttock was addressed. Pt states the pain meds are helping and he has wound care for this. AFVSS, much improved, O x 3 RRR, CTAB Noted trace edema DRU's on Plan: Midline Continue IV abx until mid week Follow up with Dr. Murrieta for bedsore DC to in-pt rehab Scribed by Sherry Dsouza under direct supervision of Dr. Sarina Jerry. Hospital course: Patient had a lengthy hospital course he was admitted to the ICU for sepsis received IV fluid resuscitation and empiric antibiotics for obstructive kidney stone with acute renal failure and pyelonephritis. Blood cultures returned with enterococcus in urine culture returned with ESBL infection. Meropenem was initiated and will be maintained until midweek next week and he did require a midline due to poor venous access to maintain those antibiotics. Creatinine improved during hospital course did IV fluids and nephrostomy tube placement to drain the kidney that was obstructed and will ultimately need lithotripsy on Tuesday per Dr. Frank directions. Labs (last 24 hrs) Laboratory Tests 04/01/17 05:00: White Blood Count 8.1, Red Blood Count 3.01L, Hemoglobin 9.6L, Hematocrit 29L, Mean Corpuscular Volume 97, Mean Corpuscular Hemoglobin 32, Mean Corpuscular Hemoglobin Concent 33, Red Cell Distribution Width 14.8H, Platelet Count 184, Mean Platelet Volume 11.0H, Neutrophils (%) (Auto) 78H, Lymphocytes (%) (Auto) 11L, Monocytes (%) (Auto) 12, Eosinophils (%) (Auto) 0, Basophils (%) (Auto) 0, Neutrophils # (Auto) 6.3, Lymphocytes # (Auto) 0.9L, Monocytes # (Auto) 1.0, Eosinophils # (Auto) 0.0, Basophils # (Auto) 0.0, Sodium Level 140, Potassium Level 4.2, Chloride Level 115H, Carbon Dioxide Level 20L, Anion Gap 5, Blood Urea Nitrogen 31H, Creatinine 1.48H, Estimat Glomerular Filtration Rate 45, BUN/ Creatinine Ratio 21, Glucose Level 96, Calcium Level 8.5, Phosphorus Level 1.8L , Magnesium Level 1.9, Total Bilirubin 0.1, Aspartate Amino Transf (AST/SGOT) 22 , Alanine Aminotransferase (ALT/SGPT) 18, Alkaline Phosphatase 58, Total Protein 5.3L, Albumin 2.8L Microbiology 03/30/17 Blood Culture - Preliminary, Resulted Enterococcus Faecalis 03/30/17 Gram Stain - Final, Resulted 03/30/17 Anaerobic Culture - Preliminary, Resulted No anaerobes isolated 03/30/17 Body Fluid Culture - Preliminary, Resulted Enterococcus Species 03/30/17 Influenza Types A,B Antigen (EDY) - Final, Complete 03/30/17 Urine Culture - Final, Complete Enterococcus Faecalis Escherichia Coli Pending Labs Laboratory Tests 04/01/17 05:00: White Blood Count 8.1, Red Blood Count 3.01, Hemoglobin 9.6, Hematocrit 29, Mean Corpuscular Volume 97, Mean Corpuscular Hemoglobin 32, Mean Corpuscular Hemoglobin Concent 33, Red Cell Distribution Width 14.8, Platelet Count 184, Mean Platelet Volume 11.0, Neutrophils (%) (Auto) 78, Lymphocytes (%) (Auto) 11 , Monocytes (%) (Auto) 12, Eosinophils (%) (Auto) 0, Basophils (%) (Auto) 0, Neutrophils # (Auto) 6.3, Lymphocytes # (Auto) 0.9, Monocytes # (Auto) 1.0, Eosinophils # (Auto) 0.0, Basophils # (Auto) 0.0, Sodium Level 140, Potassium Level 4.2, Chloride Level 115, Carbon Dioxide Level 20, Anion Gap 5, Blood Urea Nitrogen 31, Creatinine 1.48, Estimat Glomerular Filtration Rate 45, BUN/ Creatinine Ratio 21, Glucose Level 96, Calcium Level 8.5, Phosphorus Level 1.8, Magnesium Level 1.9, Total Bilirubin 0.1, Aspartate Amino Transf (AST/SGOT) 22, Alanine Aminotransferase (ALT/SGPT) 18, Alkaline Phosphatase 58, Total Protein 5.3, Albumin 2.8 Discharge Home Medications: Active Scripts Active Reported Hydrocortisone 59 Ml Lotion TOP DAILY PRN Tylenol (Acetaminophen) 325 Mg Tablet 650 Mg PO Q6H PRN Omeprazole 20 Mg Capsule.dr 20 Mg PO DAILY PRN Baclofen 10 Mg Tablet 10 Mg PO TID PRN Metoprolol Succinate 25 Mg Tab.er.24h 25 Mg PO HS Fenofibrate 160 Mg Tablet 160 Mg PO HS Levofloxacin 500 Mg Tablet 500 Mg PO DAILY 10 Days 10 DAY SUPPLY FILLED 03-29-17 Sulfamethoxazole-Tmp Ds Tablet (Sulfamethoxazole/Trimethoprim) 1 Each Tablet 1 Tab PO BID 7 Days 7 DAY SUPPLY FILLED 03-29-17 Instructions to patient/family Please see electronic discharge instructions given to patient. Clinical Quality Measures DVT/VTE Risk/Contraindication: Risk Factor Score Per Nursin RFS Level Per Nursing on Admit: 4+=Very High SARINA JERRY DO Apr 01, 2017 11:30
[2017-04-01] MEDS ORDERED: MEROPENEM 500 MG in NS (IVPB) 100 ML IV SCH (14:00)
[2017-04-01 14:15] VITALS: BP 115/64
[2017-04-02] MEDS ORDERED: TROUGH ORDER-PHARMACY XX NR (07:00)
== END 2017-04-01 13:25 | DRG 872 ==
LOC: EDUNIT# 23:50 → ER 23:53 → ICU 03-30 00:58 → 4TH 03-31 11:50
PROVIDERS: ADMIT Internal Medicine; ATTEND Internal Medicine
PROC: 0T9030Z Drainage of Right Kidney with Drainage Device, Percutaneous Approach (ICD-10-PCS; principal; 2017-03-30)
PROC: BT111ZZ Fluoroscopy of Right Kidney using Low Osmolar Contrast (ICD-10-PCS; 2017-03-30)
DX: A41.51 Sepsis due to Escherichia coli [E. coli] (principal); A41.81 Sepsis due to Enterococcus; R65.20 Severe sepsis without septic shock; N30.00 Acute cystitis without hematuria; N13.6 Pyonephrosis; N17.9 Acute kidney failure, unspecified; E86.0 Dehydration; I48.0 Paroxysmal atrial fibrillation; I12.9 Hypertensive chronic kidney disease with stage 1 through stage 4 chronic kidney disease, or unspecified chronic kidney disease; N18.9 Chronic kidney disease, unspecified; L89.151 Pressure ulcer of sacral region, stage 1; N40.1 Benign prostatic hyperplasia with lower urinary tract symptoms; R35.0 Frequency of micturition; N39.41 Urge incontinence; K21.9 Gastro-esophageal reflux disease without esophagitis; K44.9 Diaphragmatic hernia without obstruction or gangrene; E78.00 Pure hypercholesterolemia, unspecified; E78.5 Hyperlipidemia, unspecified; G62.9 Polyneuropathy, unspecified; K59.00 Constipation, unspecified; M19.91 Primary osteoarthritis, unspecified site; M54.9 Dorsalgia, unspecified; R60.0 Localized edema; Z87.11 Personal history of peptic ulcer disease; Z87.19 Personal history of other diseases of the digestive system; Z85.828 Personal history of other malignant neoplasm of skin; Z98.890 Other specified postprocedural states
CPT/HCPCS: 36415; 50430; 50433; 71010; 74000; 74176; 76937; 76942; 80053; 81000; 83605; 83735; 84100; 85007; 85025; 85027; 85610; 85730; 87040; 87070; 87075; 87077; 87088; 87186; 87205; 87804; 93005; 94640

== ENCOUNTER → 2017-03-29 | Outpatient (CLI) | payer MEDICARE ==
[~2017-03-29] MED LIST changes: +ACET325T38 PO; +BACL10TA PO; +FENO160T12 PO; +HYDR59LO2 TOP; +LEVO500T80 PO; +METO-387 PO; +OMEP20CA12 PO; -REGADENOSON 0.4 MG/5 ML SYR (LEXISCAN) IV ONE; +SULF-222 PO
--- NOTE | 2017-03-29 15:57 | Diagnostic Imaging Report ---
PROCEDURE: CT abdomen and pelvis without contrast. TECHNIQUE: Multiple contiguous axial images were obtained through the abdomen and pelvis without the use of intravenous contrast. INDICATION: Right flank pain. COMPARISON: CT of 05/21/2010 and radiograph of 03/29/17. FINDINGS: There is moderate to severe right hydronephrosis secondary to UPJ stone measuring 1.6 cm. There are perinephric stranding and edema changes seen compatible with high grade obstruction of the renal collecting system with or without superimposed infection. Correlate clinically. Retroperitoneal edema around the rest of the ureter is seen. The urinary bladder demonstrates mild wall thickening. The findings of edema around the ureter distal to the stone and bladder thickening is in favor of superimposed infection rather than just obstructive related perinephric edema. No other stones in the right kidney or right ureter seen. The left kidney demonstrates hilar punctate calcifications which could be vascular with no definite stone or hydronephrosis. The lung bases demonstrate mild atelectasis. The liver, the gallbladder, the spleen, the pancreas and the adrenal glands appear unremarkable. The abdominal aorta is normal in caliber. No para-aortic significantly enlarged lymph node is seen. No significant free fluid or fluid collection in the abdomen or pelvis is noted. There is suggestion of bilateral small fat-containing inguinal hernias. There is scoliosis in the lumbar spine convex to the left centered around L3 level with associated degenerative changes in the lower lumbar spine. There is a fusion hardware from lateral approach involving L2, L3, and L4 and disc cage seen at these levels. IMPRESSION: There is moderate to severe hydronephrosis related to an obstructive stone at the right UPJ measuring 1.6 cm. There is prominent edema around the right kidney, right ureter and the bladder in favor of superimposed infection. Correlate clinically. The findings were called to nurse practitioner taking care of the patient Ms. Wendy Bernstein by Dr. Dos Santos at 3:20 PM. Dictated by: Dictated on workstation # [id number]
== END ==
LOC: RAD 14:13
PROVIDERS: ATTEND Nurse Practitioner Family
DX: N13.2 Hydronephrosis with renal and ureteral calculous obstruction (principal)
CPT/HCPCS: 74176

== ENCOUNTER → 2017-03-29 | Outpatient (CLI) | payer MEDICARE ==
--- NOTE | 2017-03-29 14:25 | Diagnostic Imaging Report ---
EXAMINATION: Supine abdomen at 11:30 a.m. INDICATION: Hematuria and right-sided pain. FINDINGS: The CT abdomen/pelvis exam of 05/21/2010 noted an 8 x 9 mm calcification within the right kidney. On this study, there is now a 10 x 17 mm calcification overlying the medial aspect of the right renal contour. This calcification and the calcification seen on the prior exam may be one and the same. I am concerned that this calcification has migrated into the right renal pelvis or right ureter and that it is producing obstruction of the right collecting system. I would recommend that CT of the abdomen and pelvis be performed for further study. There also appears to be a smaller 7 x 7 mm calcification within the mid portion of the right kidney. No other pathological calcification is seen. There is some gas in both the large and small bowel in a nonspecific fashion. There is no sign of an acute abnormality. There are extensive postsurgical changes involving the lumbar spine. Specifically, there are orthopedic plate and screw fixation devices along the lateral aspects of the disc spaces of L2-L3 and L3-L4. There are also interbody devices at these two levels. In addition, there are other radiopaque orthopedic fixation devices along the right lateral aspects of the L3-L4 disc space and the L4-L5 disc space. There is no acute bony abnormality noted. IMPRESSION: 1. There is a large calcification along the medial aspect of the right kidney. This may be within either the right renal pelvis or the proximal right ureter and it is possible that this calcification is producing obstruction of the right collecting system. CT will be recommended for further evaluation. 2. There is no acute abnormality identified otherwise. 3. These results were called to Wendy Bernstein APRN. Dictated by: Dictated on workstation # [id number]
== END ==
LOC: RAD 11:00
PROVIDERS: ATTEND Nurse Practitioner Family
DX: N28.89 Other specified disorders of kidney and ureter (principal); R31.9 Hematuria, unspecified; M54.5 Low back pain
CPT/HCPCS: 74000

== ENCOUNTER 2017-04-01 12:35 | Inpatient (IN) | payer MEDICARE ==
[~2017-04-01] VITALS: Ht 172.7 cm; Wt 84.8 kg
[~2017-04-01 12:35] MED LIST changes: +ACET325T38 PO; +BACL10TA PO; +FENO160T12 PO; +HYDR59LO2 TOP; +LEVO500T80 PO; +METO-387 PO; +OMEP20CA12 PO; +SULF-222 PO
--- OUTSIDE RECORDS SUMMARY | 2017-04-01 13:24 | XMS REPORT | Encounter Summary ---
Author Author [facility] Organization [facility] Address Unknown Phone Unavailable Care Team Providers Care Supervisor Metal Cans Name Role Phone PCP Unavailable Reason for Visit * Reason Comments Prostate Cancer Encounter Details Date Type Department Care Team Description 02/10/2017 Office Visit [facility] Noreen Taylor APRN Prostate cancer (HCC) [address] (Primary Dx);[place] [address] [place] [address] urinary obstruction [phone] Social History Tobacco Use Types Packs/Day Years Used Date Never Smoker Smokeless Tobacco: Never Used Alcohol Use Drinks/Week oz/Week Comments Yes slight usage Sex Assigned at Date Recorded Not on file as of this encounter Progress Notes * Noreen Taylor APRN - 02/10/2017 11:30 AM CDT Formatting of this note may be different from the original. [facility] [address], [address] [place], [place] [id number] [phone] Urology Progress Note 02/10/2017 CHIEF COMPLAINT Chief [...] plan. Electronically signed by: Noreen Taylor APRN, SUPERVISOR DRY CELL ASSEMBLY-C 02/10/2017 11:51 AM in this encounter Plan of Treatment Date Type Specialty Care Team Description 06/08/2017 Office Visit Neurology Lance Richards MD [address] [place], [place] [id number] 02/09/2018 Office Visit Urology Noreen Taylor APRN [address] [place] [address] [phone] as of this encounter Visit Diagnoses Diagnosis Prostate cancer (HCC) - Primary Malignant neoplasm of prostate BPH with urinary obstruction Hypertrophy of prostate with urinary obstruction and other lower urinary tract symptoms (LUTS) in this encounter
--- OUTSIDE RECORDS SUMMARY | 2017-04-01 13:24 | XMS REPORT | Clinical Summary ---
Author Author [facility] Address Unknown Phone Unavailable Support Name Relationship Address Phone , Sandi Byrne [place]CON [id number] [address] Allergies Active Allergy Reactions Severity Noted Date [...] 06/08/2017 Office Visit Lance Richards MD [address] [facility] [place] [address] [phone] 02/09/2018 Office Visit Noreen Taylor, HEEL SEAT LASTER [address] [place] [address] Health Maintenance Due Date Last Done Comments DTaP,Tdap,and Td Vaccines 02/05/1949 (1 - Tdap) Annual Wellness Visit 12/06/1997 Pneumo-Adult (2 of 2 - 08/10/2013 08/10/2012 PCV13) Influenza Vaccine (#1) 2016 02/18/2016, 01/11/2015, 02/08/2013 Zoster Vaccine Completed 07/28/2012 Results * PSA (02/07/2017 11:01 AM) Component Value Ref Range PSA 0.09 0.00 - 4.00 ng/mL Specimen Performing Laboratory Blood [facility] [address] [place] [address] from Last 3 Months
--- OUTSIDE RECORDS SUMMARY | 2017-04-01 13:24 | XMS REPORT | Encounter Summary ---
Author Author [facility] Address Unknown Phone Unavailable Care Team Providers Care Parts Facilitator Name Role Phone PCP Unavailable Encounter Details Date Type Department Care Team Description 02/07/2017 Orders Only [facility] Mert Guido MD Prostate cancer (HCC) [address] [facility] [address] [facility] (Primary Dx) [place], [place] [id number] [address] [place] [address] Social History Tobacco Use Types Packs/Day Years Used Date Never Smoker Alcohol Use Drinks/Week oz/Week Comments Yes slight usage Sex Assigned at Date Recorded Not on file as of this encounter Plan of Treatment Date Type Specialty Care Team Description 06/08/2017 Office Visit Neurology Lance Richards MD [address] [place], [place] [id number] 02/09/2018 Office Visit Urology Noreen Taylor, SOFTBALL PLAYER [address] [place], [place] [id number] as of this encounter Results * PSA (02/07/2017 11:01 AM) Component Value Ref Range PSA 0.09 0.00 - 4.00 ng/mL Specimen Performing Laboratory Blood [facility] [address] [place] [address] in this encounter Visit Diagnoses Diagnosis Prostate cancer (HCC) - Primary Malignant neoplasm of prostate in this encounter
--- OUTSIDE RECORDS SUMMARY | 2017-04-01 13:24 | XMS REPORT | Encounter Summary ---
Author Author [facility] Organization [facility] Address Unknown Phone Unavailable Care Team Providers Care Ordnance Artificer Helper Name Role Phone PCP Unavailable Encounter Details Date Type Department Care Team Description 02/18/2017 [facility] MULTIPLE TESTS Link, Onbase Scan [place], [place] Social History Tobacco Use Types Packs/Day Years Used Date Never Smoker Smokeless Tobacco: Never Used Alcohol Use Drinks/Week oz/Week Comments Yes slight usage Sex Assigned at Date Recorded Not on file as of this encounter Plan of Treatment Date Type Specialty Care Team Description 06/08/2017 Office Visit Neurology Lance Richards MD [address] [place] [address] 02/09/2018 Office Visit Urology Noreen Taylor, POWDER LOADER [address] [place] [address] as of this encounter Visit Diagnoses Not on filein this encounter
--- OUTSIDE RECORDS SUMMARY | 2017-04-01 13:25 | XMS REPORT | Encounter Summary ---
Author Author [facility] Organization [facility] Address Unknown Phone Unavailable Care Team Providers Care Fourth Hand Name Role Phone PCP Unavailable Encounter Details Date Type Department Care Team Description 02/07/2017 Lab Visit [facility] Prostate cancer (HCC) - [address] [place] [address] Social History Tobacco Use Types Packs/Day Years Used Date Never Smoker Alcohol Use Drinks/Week oz/Week Comments Yes slight usage Sex Assigned at Date Recorded Not on file as of this encounter Plan of Treatment Date Type Specialty Care Team Description 06/08/2017 Office Visit Neurology Lance Richards MD [address] [place] [address] 02/09/2018 Office Visit Urology Noreen Taylor, LONG HAUL TRUCK DRIVER [address] [place] [address] as of this encounter Results * PSA (02/07/2017 11:01 AM) Component Value Ref Range PSA 0.09 0.00 - 4.00 ng/mL Specimen Performing Laboratory Blood [facility] [address] [place] [address] in this encounter Visit Diagnoses Diagnosis Prostate cancer (HCC) Malignant neoplasm of prostate in this encounter
[2017-04-01 13:56] VITALS: BP 148/87
[2017-04-01] MEDS ORDERED: HYDROcodone/APAP 5 MG/325 MG (LORTAB) TAB PO PRN (14:00)
[2017-04-01] MEDS ORDERED: PANTOPRAZOLE 20 MG TABLET (PROTONIX) PO PRN (14:00)
--- NOTE | 2017-04-01 14:49 | Physical Therapy Evaluation ---
PT Evaluation-General Medical Diagnosis Admission Date Apr 01, 2017 at 12:45 Medical Diagnosis: Severe Sepsis, UTI, Stage I Decubitus Ulcer Onset Date: Mar 29, 2017 Therapy Diagnosis Therapy Diagnosis: impaired mobility, strength, endurance Height/Weight Height (Feet): 5 Height (Inches): 8.00 Weight (Pounds): 176 Weight (Ounces): 3.0 Precautions Precautions/Isolations: Standard Precautions Referral Physician: Sha Reason for Referral: Evaluation/Treatment Medical History Pertinent Medical History: Atrial Fib, Arthritis, GERD, HTN, Neuropathy, Renal Insufficiency Additional Medical History Esophagitis, skin cancer, acute on chronic respiratory failure Reviewed History: Yes Social History Home: Multilevel Current Living Status: Spouse Entry Into Home: Stairs With Railing PT Steps Into Home: 3 patient has a basement that he uses Prior/Core FIM Prior Level of Function Functional [place] Measure 0=Not Assessed/NA 4=Minimal Assistance 1=Total Assistance 5=Supervision or Setup 2=Maximal Assistance 6=Modified [place] 3=Moderate Assistance 7=Complete [place] Bed Mobility: 7 Transfers (B,C,W/C) (FIM): 7 Gait: 7 Patient had been using a rolling walker due to a recent back surgery but had gotten to where he didn't need to use it anymore PT Evaluation-Current Subjective Patient in bed pre tx, has 2/10 pain in his back. He just had a medical procedure done previous to PT coming in the room to take him down to rehab and start his evaluation. Pt/Family Goals to be independent at home Objective Patient Orientation: Normal For Age Attachments: Drains ROM/Strength ROM Lower Extremities WNL Strenght Lower Extremities right lower extremity (hip flexion 4/5, knee flexion 4+/5, knee extension 4+/5, dorsiflexion 5/5), left lower extremity (hip flexion 4/5, knee flexion 4+/5, knee extension 4+/5, dorsiflexion 5/5) Integumentary/Posture Integumentary patient has a wound on his bottom, see nursing notes Bowel Incontinence: No Bladder Incontinence: No Neuromuscular (Tone, Coordination, Reflexes) WNL Sensory Vision: Wears Glasses Hearing: Functional Sensation Right Lower Extremit: Impaired Sensation Left Lower Extremity: Impaired Sensation Lower Extremities Patient has impaired light touch sensation tested bilaterally in L4-5 and S1 dermatomes, but he states that his legs are pretty numb from the knees down and he says this is from swelling Transfers Functional [place] Measure 0=Not Assessed/NA 4=Minimal Assistance 1=Total Assistance 5=Supervision or Setup 2=Maximal Assistance 6=Modified [place] 3=Moderate Assistance 7=Complete IndependenceIRFPAI Quality Coding Scale 6 Independent with activity with or without an assistive device 5 Patient requires set up or clean up by helper. Patient completes activity by themselves 4 Supervision or touching assist (CGA). [place] provide cues , steadying assist 3 The helper provides less than half the effort to complete the activity 2 The helper provides more than half the effort to complete the activity 1 Dependent. The helper does all the effort to complete an activity 7 Patient refused to complete or attempt activity 9 The patient did not perform the activity before the current illness or injury 88 Not attempted due to Medical conditions or safety concerns Transfers (B, C, W/C) (FIM): 5 Scootin Rollin Roll Left to Right (QC): 4 Supine to/from Sit: 5 Sit to/from Stand: 5 Sit to Lying (QC): 4 Lying to Sitting/Side of Bed(Q: 4 Sit to Stand (QC): 4 Car Transfer (QC): 4 (CGA) Patient performs bed mobility with SBA, transfers with CGA, simulated car transfer with CGA Gait Does the Patient Walk?: Yes Mode of Locomotion: Walk Anticipated Mode of Locomotion: Walk Gait (FIM): 5 Walk 10 feet (QC): 4 Walk 50 ft with 2 Turns(QC): 4 Walk 150 ft (QC): 4 Walking 10ft/uneven surface-QC: 4 Distance: 400', 1000', 300' Gait Level of Assist: 5 Gait Persons Needed: 1 Gait Assistive Device: FWW Comments/Gait Description Patient can ambulate 1000' with a rolling walker with SBA including 50' with at least 2 turns of 90 degrees and 10' over an uneven surface. Wheelchair Training Does the Pt Use a Wheelchair?: No Stairs Stairs (FIM): 5 #of Steps: 12 Level of Assist: 5 1 Step (curb) (QC): 4 4 Steps (QC): 4 12 Steps (QC): 4 Patient can go up and down 12 steps using 2 handrails with SBA. Balance Sitting Static: Normal Sitting Dynamic: Normal Standing Static: Good Standing Dynamic: Good Picking up an Object (QC): 88 (patient states he is not supposed to bend over because of his back.) Treatment parallel bars exercises x20 (AP, hip abd, mini-squats, marching), NuStep level 5 for 15 min Assessment/Needs Patient has impaired mobility, strength, endurance, but good safety awareness and appropriate use of hand placement and positioning during transfers. Rehab Potential: Good PT Short Term Goals Short Term Goals Time Frame: Apr 08, 2017 Transfers (B,C,W/C) (FIM): 5 PT Shelter Goals Circular Knitter Helper Goals PT Circular Knitter Helper Goals Time Frame: Apr 22, 2017 Transfers (B,C,W/C) (FIM): 6 Sit to Lying (QC): 6 Lying-Sitting on Side/Bed(QC): 6 Sit to Stand (QC): 6 Rollin Roll Left to Right (QC): 6 Car Transfer (QC): 6 Gait (FIM): 6 Distance: 1500' Walk 10 feet (QC): 6 Walk 10ft-Uneven Surface(QC): 6 Walk 50ft with 2 Turns (QC): 6 Walk 150 ft (QC): 6 Gait Assistive Device: FWW Stairs (FIM): 6 # of Steps: 12 1 Step (curb) (QC): 6 4 Steps (QC): 6 12 Steps (QC): 6 PT Plan Problem List Problem List: Activity Tolerance, Functional Strength, Safety, Balance, Gait, Transfer, Bed Mobility Treatment/Plan Treatment Plan: Continue Plan of Care Treatment Plan: Bed Mobility, Education, Functional Activity Rudolph, Functional Strength, Group Therapy, Gait, Safety, Therapeutic Exercise, Transfers Treatment Duration: Apr 22, 2017 Frequency: At least 5 of 7 days/Wk (IRF) Estimated Hrs Per Day: 1.5 hours per day Patient and/or Family Agrees t: Yes Safety Risks/Education Patient Education: Gait Training, Transfer Techniques, Steps, Correct Positioning, Disease Process Teaching Recipient: Patient Teaching Methods: Demonstration, Discussion Response to Teaching: Reinforcement Needed Discharge Recommendations Plan Patient will perform bed mobility and transfer training, balance and endurance training, functional strengthening, stair training, gait training, and education to improve functional mobility and independence at home. Therapy D/C Recommendations: Home w/ Family Support Time/GCodes Time In: 1325 Time Out: 1435 Total Billed Treatment Time: 70 Total Billed Treatment 1 visit EVM 30' GT 20' EX 20' ABDULAZIZ MIRZA PT Apr 01, 2017 14:49
[2017-04-01] MEDS: MEROPENEM 500 MG in NS (IVPB) 100 ML IV SCH ×2 (14:52→21:32)
--- NOTE | 2017-04-01 15:44 | Cardiology Progress Note ---
Cardiology SOAP Progress Note Subjective: No cardiac complaints Objective: I&O/Vital Signs Vital Sign - Last 12Hours 04/01/17 13:56 Temp 98.5 Pulse 72 Resp 20 B/P (MAP) 148/87 (107) Pulse Ox 96 O2 Delivery Room Air Weight (Pounds): 176 Weight (Ounces): 3.0 Weight (Calculated Kilograms): 79.631630 Constitutional: No appears stated age, No AAO x 3, No apparent distress, No PERRL, No well-developed, No well-nourished, No other Respiratory: No accessory muscle use, No respiratory distress, No chest tender , No chest expansion is symmetric, No chest is bilaterally symmetric, No lungs clear to percussion, No lungs clear to auscultation, No crackles, No rhonchi, No rales, No stridor, No wheezing, No pleural rub, No other Cardiovascular: No regular rate-rhythm, No irregularly irregular, No extra beats, No parasternal heave is noted, No JVD, No edema, No bradycardia, No tachycardia, No point of maximal impulse, No cardiac thrills are palpable, No S1 and S2, No gallop/S3, No gallop/S4, No diastolic murmur, No systolic murmur, No friction rub, No click, No other Gastrointestional: No tender, No soft, No round, No distended, No pulsatile mass, No organomegaly, No guarding, No rebound, No tenderness, No hernia, No mass, No audible bowel sounds, No abnormal bowel sounds, No abdominal bruits, No spleenomegaly, No other Extremities: No normal range of motion, No non-tender, No normal inspection, No pedal edema, No calf tenderness, No normal capillary refill, No pelvis stable , No calf tenderness, No inflammation, No pedal edema, No slow capillary refill , No swelling, No other, No abrasion, No clubbing, No cyanosis, No ecchymosis, No laceration, No no lower extremity edema bilateral, No significant edema, No tenderness, No wound Neurologic/Psychiatric: No automatic presser II-XII nml as tested, No no motor/sensory deficits, No alert, No normal mood/affect, No oriented x 3, No abnormal cerebellar tests, No abnormal automatic presser II-XII, No abnormal gait, No aphasia, No EOM palsy, No facial droop, No motor weakness, No sensory deficit, No depressed affect, No disoriented x 3, No other, No grossly intact, No power is 5/5 both on sides Skin: No normal color, No warm/dry, No cyanosis, No cool, No diaphoresis, No damp, No ecchymosis, No jaundice, No mottled, No pallor, No rash, No tattoos/ piercings, No ulcerations, No rash on exposed areas, No ulcerations on exposed areas, No other A/P: Assessment/Dx: Sepsis, UTI, paroxysmal atrial fibrillation Plan: Deferred treatment of sepsis, UTI, renal stones to the primary team and Dr. Frank. Acute on chronic CKD Paroxysmal atrial fibrillation: Currently in sinus rhythm. Previously aspirin discontinued before back surgery. Aspirin will be restarted once okay with surgery team. Continue Toprol-XL. Thank you for your consultation. Please call me if you have any questions. Rodolfo Salcedo MD, FACP, FACC, FSCAI, FHRS, CCDS Interventional Cardiology Cardiac Electrophysiology Vascular Medicine and Endovascular Interventions Lizet SALCEDO MD Apr 01, 2017 3:44 pm
--- NOTE | 2017-04-01 16:06 | Occupational Therapy Eval ---
OT Evaluation-General/PLF Medical Diagnosis Admission Date Apr 01, 2017 at 12:45 Medical Diagnosis: Severe Sepsis, UTI, Stage I Decubitus Ulcer Onset Date: Mar 29, 2017 Therapy Diagnosis Therapy Diagnosis: decr self care, decr activity tolerance Height/Weight Height (Feet): 5 Height (Inches): 8.00 Weight (Pounds): 176 Weight (Ounces): 3.0 Precautions Precautions/Isolations: Contact Isolation, Fall Prevention Referral Physician: Sha Referral Reason: Evaluation/Treatment Medical History Pertinent Medical History: Atrial Fib, Arthritis, GERD, HTN, Neuropathy, Renal Insufficiency Additional Medical History Recent back surgery about 1 month ago. Esophagitis. Chronic debility. Hiatal hernia, ulcer. Chronic back pain. Skin cancer. pt reported reverse total shoulder on L, carpal tunnel and cubital tunnel surgery L UE. Current History Admitted to acute care with fever, chills, shaking. Has stage 1 decubitus ulcer on coccyx. 03-30-17 nephrostomy tube placed. Admission was delayed today due to insertion of PICC line needed for IV antibiotics - pt placed in isolation today. Reviewed History: Yes Social History Home: Multilevel (office is in basement) Current Living Status: Spouse Entry Into Home: Stairs With Railing Steps Into Home: 3 Other Obstacles: stairs in basement, with rail on one side ADL-Prior Level of Function ADL PLOF Comments Pt reported that he has been able to manage all of his basic self care needs prior to admission. 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 Pt reported that he wasn't really in pain but had some back discomfort. He said it was most uncomfortable at night. Appearance Alert, cooperative Mental Status/Objective Patient Orientation: Person, Place, Time, Situation Attachments: Central Line, Drains, IV Current Glasses/Contacts: Yes Hearing Aids: No Dentures/Partials: No Hand Dominance: Left Upper Extremity ROM Grossly WFL bilat Upper Extremity Sensation Pt reported numbness L little finger and half L ring finger Upper Extremity Strength Grossly 4/5 bilaterally Pt was fatigued from having OT and PT in acute care this morning and from getting PICC line inserted. ADL-Treatment ADL-Current Pt had a shower, changed clothes and shaved this morning so declined to do them again. Pt got out of recliner with SBA and walked SBA for safety, FWW to bathroom to toilet and wash hands. OT managing IV pole Functional [place] Measure 0=Not Assessed/NA 4=Minimal Assistance 1=Total Assistance 5=Supervision or Setup 2=Maximal Assistance 6=Modified [place] 3=Moderate Assistance 7=Complete IndependenceIRFPAI Quality Coding Scale 6 Independent with activity with or without an assistive device 5 Patient requires set up or clean up by helper. Patient completes activity by themselves 4 Supervision or touching assist (CGA). [place] provide cues , steadying assist 3 The helper provides less than half the effort to complete the activity 2 The helper provides more than half the effort to complete the activity 1 Dependent. The helper does all the effort to complete an activity 7 Patient refused to complete or attempt activity 9 The patient did not perform the activity before the current illness or injury 88 Not attempted due to Medical conditions or safety concerns Eating (FIM): 7 (No problems opening containers or cutting food. No difficulty getting food to mouth. No dentures) Eating (QC): 6 Grooming (FIM): 5 (SBA at sink to wash hands. balanced at countertop) Oral Hygiene (QC): 4 Toileting (FIM): 5 (SBA getting on/off tall toilet. grab bar, FWW) Toileting Hygiene (QC): 4 Toilet/Commode Transfer (FIM): 5 (SBA getting on and off tall toilet. grab bar , FWW) Toilet Transfer (QC): 4 Pt returned to recliner, all needs met. Pt concerns re medication and dressings passed on to nursing. Pt informed of need to call for help to get up or go to the bathroom. Education OT Patient Education: Modified ADL techniques, Purpose of tx/functional activities, Rehab process Teaching Recipient: Patient, Family (spouse) Teaching Methods: Discussion Response to Teaching: Verbalize Understanding OT [facility]ci Goals Check Scaler Goals Time Frame: Apr 15, 2017 Eating (FIM): 7 Eating (QC): 6 Groomin Oral Hygiene (QC): 6 Bathing(FIM): 6 Shower/Bathe Self (QC): 6 Upper Body Dressing(FIM): 6 Upper Body Dressing (QC): 6 Lower Body Dressing(FIM): 6 Lower Body Dressing (QC): 6 On/Off Footwear (QC): 6 Toileting(FIM): 6 Toileting Hygiene (QC): 6 Toilet/Commode Transfer(FIM): 6 Toilet/Commode Transfer (QC): 6 Tub Transfer(FIM): 6 Shower Transfer(FIM): 6 Additional Goals: 2-Verbalize Understanding, 3-ImproveStrength/Rudolph 1=Demonstrate adherence to instructed precautions during ADL tasks. 2=Patient will verbalize/demonstrate understanding of assistive devices/ modifications for ADL. 3=Patient will improve strength/tolerance for activity to enable patient to perform ADL's. OT Education/Plan Problem List/Assessment Assessment: Decreased Activ Tolerance, Decreased UE Strength, Impaired Self- Care Skills Pt would benefit from skilled OT to increase his independence in basic self care to allow him to safely return to his home and to decrease caregiver burden. Discharge Recommendations Plan/Recommendations: Continue POC Target Placement home Treatment Plan/Plan of Care Treatment,Training & Education: Yes Patient would benefit from OT for education, treatment and training to promote independence in ADL's, mobility, safety and/or upper extremity function for ADL' s. Plan of Care: ADL Retraining, Functional Mobility, Group Exercise/Act as Ind ( education, exercise, activity tolerance, functional activities), UE Funct Exercise/Act, OTHER (energy conservation education as apporpriate) Treatment Duration: Apr 15, 2017 Frequency: At least 5 of 7 days/Wk (IRF) Estimated Hrs Per Day: 1.5 hours per day Agreement: Yes Rehab Potential: Good Time/GCodes Start Time: 14:35 Stop Time: 15:20 Total Time Billed (hr/min): 45 Billed Treatment Time visit, 15 minutes evaluation low intensity, 30 minutes ADL AYE SORENSON OT Apr 01, 2017 16:06
[2017-04-01 18:00] VITALS: BP 142/76
[2017-04-01] MEDS: BACLOFEN 10 MG (LIORESAL) TAB PO PRN (18:04)
[2017-04-01] MEDS: FENOFIBRATE 134 MG (LOFIBRA) CAPSULE PO SCH (21:31)
[2017-04-01] MEDS: NYSTATIN CREAM (MYCOSTATIN) 30 GM TUBE TP SCH (21:31)
[2017-04-02 05:00] VITALS: BP 158/84
[2017-04-02] MEDS: MEROPENEM 500 MG in NS (IVPB) 100 ML IV SCH ×3 (06:08→21:25)
[2017-04-02] MEDS ORDERED: VANCOMYCIN INJECTION 1,250 MG in NS (IVPB) 250 ML IV SCH (08:00)
[2017-04-02] MEDS: NYSTATIN CREAM (MYCOSTATIN) 30 GM TUBE TP SCH ×3 (08:09→21:26)
--- NOTE | 2017-04-02 11:08 | Occupational Ther Daily Note ---
OT Current Status-Daily Note Subjective No pain reported. Appearance Pt. is up in bathroom with nurse tech present after shower. Agrees to finish dressing with OT present. Mental Status/Objective Patient Orientation: Person, Place Functional [facility] Measure 0=Not Assessed/NA 4=Minimal Assistance 1=Total Assistance 5=Supervision or Setup 2=Maximal Assistance 6=Modified [facility] 3=Moderate Assistance 7=Complete [facility] Attachments: Drains ADL-Treatment Functional [facility] Measure 0=Not Assessed/NA 4=Minimal Assistance 1=Total Assistance 5=Supervision or Setup 2=Maximal Assistance 6=Modified [place] 3=Moderate Assistance 7=Complete IndependenceIRFPAI Quality Coding Scale 6 Independent with activity with or without an assistive device 5 Patient requires set up or clean up by helper. Patient completes activity by themselves 4 Supervision or touching assist (CGA). [place] provide cues , steadying assist 3 The helper provides less than half the effort to complete the activity 2 The helper provides more than half the effort to complete the activity 1 Dependent. The helper does all the effort to complete an activity 7 Patient refused to complete or attempt activity 9 The patient did not perform the activity before the current illness or injury 88 Not attempted due to Medical conditions or safety concerns Grooming (FIM): 5 (SBA at sink) Oral Hygiene (QC): 5 Bathing (FIM): 5 (SBA per nurse tech) Shower/Bathe Self (QC): 4 Upper Body (FIM): 5 (SBA to don shirt.) Upper Body Dressing (QC): 4 Lower Body Dressing (FIM): 3 (Pt. able to don underwear and pants sitting down and then pull them up in stance. Did require assist to don shoes and socks as he uses a stool at home. Will simulate this or utilize AE at later session.) Lower Body Dressing (QC): 3 On/Off Footwear (QC): 2 Toileting (FIM): 5 Toileting Hygiene (QC): 4 Transfers (B, C, W/C) (FIM): 5 (SBA with use of walker) Toilet/Commode Transfer (FIM): 5 Toilet Transfer (QC): 4 Shower Transfer(FIM): 5 (SBA per nurse tech) After shower and dressing tasks were completed, pt. agreed to ambulate to therapy gym. Completed 10 minutes on armbike at mod resistance to increase overall strength and endurance with daily tasks. Pt. tolerated this well, and ambulated back to room. All needs met back in room. Education OT Patient Education: Correct positioning, Exercise program, Modified ADL techniques, Progress toward Goal/Update tx plan, Purpose of tx/functional activities, Reviewed precautions, Rehab process, Transfer techniques Teaching Recipient: Patient Teaching Methods: Demonstration, Discussion Response to Teaching: Verbalize Understanding, Return Demonstration OT Short Term Goals Short Term Goals 1=Demonstrate adherence to instructed precautions during ADL tasks. 2=Patient will verbalize/demonstrate understanding of assistive devices/ modifications for ADL. 3=Patient will improve strength/tolerance for activity to enable patient to perform ADL's. OT Digital Campaign Manager Goals Digital Campaign Manager Goals Time Frame: Apr 15, 2017 Eating (FIM): 7 Eating (QC): 6 Groomin Oral Hygiene (QC): 6 Bathing(FIM): 6 Shower/Bathe Self (QC): 6 Upper Body Dressing(FIM): 6 Upper Body Dressing (QC): 6 Lower Body Dressing(FIM): 6 Lower Body Dressing (QC): 6 On/Off Footwear (QC): 6 Toileting(FIM): 6 Toileting Hygiene (QC): 6 Toilet/Commode Transfer(FIM): 6 Toilet/Commode Transfer (QC): 6 Tub Transfer(FIM): 6 Shower Transfer(FIM): 6 Additional Goals: 2-Verbalize Understanding, 3-ImproveStrength/Rudolph 1=Demonstrate adherence to instructed precautions during ADL tasks. 2=Patient will verbalize/demonstrate understanding of assistive devices/ modifications for ADL. 3=Patient will improve strength/tolerance for activity to enable patient to perform ADL's. OT Education/Plan Problem List/Assessment Assessment: Decreased Activ Tolerance, Decreased UE Strength, Impaired I ADL's Pt would benefit from skilled OT to increase his independence in basic self care to allow him to safely return to his home and to decrease caregiver burden. Discharge Recommendations Plan/Recommendations: Continue POC Therapy D/C Recommendations: Home w/ Family Support, Occupational Therapy Home Care Treatment Plan/Plan of Care Treatment,Training & Education: Yes Patient would benefit from OT for education, treatment and training to promote independence in ADL's, mobility, safety and/or upper extremity function for ADL' s. Plan of Care: ADL Retraining, Functional Mobility, Group Exercise/Act as Ind ( education, exercise, activity tolerance, functional activities), UE Funct Exercise/Act, OTHER (energy conservation education as apporpriate) Treatment Duration: Apr 15, 2017 Frequency: At least 5 of 7 days/Wk (IRF) Estimated Hrs Per Day: 1.5 hours per day Agreement: Yes Rehab Potential: Good Time/GCodes Start Time: 08:15 Stop Time: 08:55 Total Time Billed (hr/min): 40 Billed Treatment Time 1, ADL x 30minutes, EX x 10minutes SYMONE JENKINS OT Apr 02, 2017 11:08
--- NOTE | 2017-04-02 11:43 | Cardiology Progress Note ---
Cardiology SOAP Progress Note Subjective: No cardiac complaints Objective: I&O/Vital Signs Vital Sign - Last 12Hours 04/02/17 05:00 Temp 98.7 Pulse 59 Resp 18 B/P (MAP) 158/84 (108) Pulse Ox 96 O2 Delivery Room Air Weight (Pounds): 187 Weight (Ounces): 0.2 Weight (Calculated Kilograms): 84.055168 Constitutional: No appears stated age, No AAO x 3, No apparent distress, No PERRL, No well-developed, No well-nourished, No other Respiratory: No accessory muscle use, No respiratory distress, No chest tender , No chest expansion is symmetric, No chest is bilaterally symmetric, No lungs clear to percussion, No lungs clear to auscultation, No crackles, No rhonchi, No rales, No stridor, No wheezing, No pleural rub, No other Cardiovascular: No regular rate-rhythm, No irregularly irregular, No extra beats, No parasternal heave is noted, No JVD, No edema, No bradycardia, No tachycardia, No point of maximal impulse, No cardiac thrills are palpable, No S1 and S2, No gallop/S3, No gallop/S4, No diastolic murmur, No systolic murmur, No friction rub, No click, No other Gastrointestional: No tender, No soft, No round, No distended, No pulsatile mass, No organomegaly, No guarding, No rebound, No tenderness, No hernia, No mass, No audible bowel sounds, No abnormal bowel sounds, No abdominal bruits, No spleenomegaly, No other Extremities: No normal range of motion, No non-tender, No normal inspection, No pedal edema, No calf tenderness, No normal capillary refill, No pelvis stable , No calf tenderness, No inflammation, No pedal edema, No slow capillary refill , No swelling, No other, No abrasion, No clubbing, No cyanosis, No ecchymosis, No laceration, No no lower extremity edema bilateral, No significant edema, No tenderness, No wound Neurologic/Psychiatric: No international first officer II-XII nml as tested, No no motor/sensory deficits, No alert, No normal mood/affect, No oriented x 3, No abnormal cerebellar tests, No abnormal international first officer II-XII, No abnormal gait, No aphasia, No EOM palsy, No facial droop, No motor weakness, No sensory deficit, No depressed affect, No disoriented x 3, No other, No grossly intact, No power is 5/5 both on sides Skin: No normal color, No warm/dry, No cyanosis, No cool, No diaphoresis, No damp, No ecchymosis, No jaundice, No mottled, No pallor, No rash, No tattoos/ piercings, No ulcerations, No rash on exposed areas, No ulcerations on exposed areas, No other A/P: Assessment/Dx: Sepsis, UTI, paroxysmal atrial fibrillation Plan: Deferred treatment of sepsis, UTI, renal stones to the primary team and Dr. Frank. Acute on chronic CKD Paroxysmal atrial fibrillation: Currently in sinus rhythm. Previously aspirin discontinued before back surgery. Aspirin will be restarted once okay with surgery team. Continue Toprol-XL. Thank you for your consultation. Please call me if you have any questions. Rodolfo Salcedo MD, FACP, FACC, FSCAI, FHRS, CCDS Interventional Cardiology Cardiac Electrophysiology Vascular Medicine and Endovascular Interventions Lizet SALCEDO MD Apr 02, 2017 11:43 am
--- NOTE | 2017-04-02 11:59 | HISTORY AND PHYSICAL ---
DATE OF SERVICE: 04/01/2017 CHIEF COMPLAINT: Difficulty with walking. HISTORY OF PRESENT ILLNESS: The patient is an 87-year-old male who lives with his spouse in [place] who had been independent, who developed a UTI due to ESBL. The patient was placed on IV antibiotics and seen by Dr. Frank. He has been following him for prostatitis and right renal stone which had been asymptomatic. The impression of Dr. Frank was right proximal ureteral stone with obstruction of suspected sepsis, sepsis. The patient had a percutaneous nephrostomy tube placed and is tentatively scheduled for lithotripsy in another week. The patient has had a decline in his functional independence and is referred to inpatient rehabilitation unit. Currently, requires assistance for his ADLs and mobility skills. He is on meropenem and vancomycin has just been discontinued. He is being followed by hospitalist service in lieu of Dr. Tam, PCP. PAST MEDICAL HISTORY: Prostatitis with right ureteral stone, recent spinal surgery with Dr. Sharif in January, atrial fibrillation, hypercholesterolemia, hypertension, neuropathy, hiatal hernia, esophagitis, chronic back pain arthritis. PAST SURGICAL HISTORY: Percutaneous nephrostomy, spinal surgery Dr. Sharif 02/15/2017 [place], [place]. ALLERGIES: Penicillin and iodine. FAMILY HISTORY: Noncontributory. SOCIAL HISTORY: As per above. Retired had been independent. Has supportive family. REVIEW OF SYSTEMS: Significant for fever and now resolved, chronic back pain, irregular heartbeat. MEDICATIONS: Meropenem IV. Other meds, see JUN. PHYSICAL EXAMINATION: Significant for GENERAL: A pleasant male appearing his stated age. Alert and oriented, no acute distress. VITAL SIGNS: Within normal limits. He is afebrile. HEENT: Vision speech hearing grossly intact. No oral lesion is noted. NECK: Supple without mass. HEART: Regular rhythm. LUNGS: Clear. ABDOMEN: Soft, nontender. Bowel sounds present. EXTREMITIES: Plus lower leg edema, no calf tenderness. SKIN: A nephrostomy tube to drainage in place.Sacral presure sore as per DR Murrieta MUSCULOSKELETAL: He has functional active range of motion of all four extremities. NEUROLOGIC: He has generalized weakness 4/5 BUES 4/5 at hip flex and 4+/5 at knee ext and flex dorsiflexion 5/5. Sensation is grossly intact to touch. Cognition grossly intact. ASSESSMENT: 1. General debilitation secondary to UTI/sepsis due to ESBL on IV antibiotics. 2. Underlying right ureteral stone, status post percutaneous nephrostomy. 3. Atrial fibrillation, controlled with medication. 4. Chronic back pain status post spinal surgery 01/2017 outside facility. 5. Hypertension controlled with medication. 6. Hypercholesterolemia. 7. Sacral Pressure sore PLAN: The patient will have a comprehensive program of inpatient rehabilitation with goal of maximizing level of function independence prior to discharge home with family. The patient will have PT, OT 90 minutes per day five days a week for 7 to 10 days for gait, strengthening and conditioning, balance, ADLs.ANY patient/ family caregiver training as necessary as well as any equipment and training as necessary. Speech therapy to do cognitive assessment and treat as indicated. Rehabilitation nursing to assist with bowel, bladder, skin, wound care, medication education on pain management, nephrostomy tube care. business services vice president to assist with discharge planning and community reentry. Follow-up with hospitalist service,Cardiology.DR Murrieta and Dr. Frank as per their schedule. Estimated length of stay 7 to 10 days. PROGNOSIS: Prognosis appears good for goal of discharging home with spouse modified independent to supervision for ADLs and mobility skills. DIET: Regular. CODE STATUS: Full code. POST-ADMISSION PHYSICIAN ASSESSMENT- . The preadmission screen agrees with the post-admission assessment that the patient is a good candidate for inpatient rehabilitation. He appears to be well motivated to participate in three hours of therapy a day. He should be able to tolerate 3 hours a day from a medical and surgical standpoint. He should benefit from the three hours of therapy a day. He has a reasonable discharge plan, reasonable discharge rehabilitation goals and a supportive family. He has various comorbidities that need to be closely monitored with medications and drips adjusted on a daily basis as needed. These include his recent bout of sepsis due to ureteral stone and his pressure sore.Also his atrial fibrillation, chronic back pain. Plan of care as per above history and physical. Prior level of function; The patient was reported to have been modified independent for his ADLs, mobility skills prior to this illness. Job ID: [id number] DocumentID: [id number] Dictated Date: 04/02/2017 10:07:31 Animated Cartoons Painter Date: 04/02/2017 11:59:11 Dictated By: ALLYSON KAM MD MTDD
[2017-04-02] MEDS ORDERED: SENNA W/DOCUSATE (SENOKOT S) TABLET PO PRN (12:00)
--- NOTE | 2017-04-02 12:11 | Physical Therapy Daily Note ---
PT Daily Note-Current Subjective Pt reports he has a little "kidney pain but nothing like it was" per pt. Pt agreeable to treatment. Mental Status Patient Orientation: Person, Place, Situation Transfers Functional [place] Measure 0=Not Assessed/NA 4=Minimal Assistance 1=Total Assistance 5=Supervision or Setup 2=Maximal Assistance 6=Modified [place] 3=Moderate Assistance 7=Complete IndependenceIRFPAI Quality Coding Scale 6 Independent with activity with or without an assistive device 5 Patient requires set up or clean up by helper. Patient completes activity by themselves 4 Supervision or touching assist (CGA). [place] provide cues , steadying assist 3 The helper provides less than half the effort to complete the activity 2 The helper provides more than half the effort to complete the activity 1 Dependent. The helper does all the effort to complete an activity 7 Patient refused to complete or attempt activity 9 The patient did not perform the activity before the current illness or injury 88 Not attempted due to Medical conditions or safety concerns Transfers mod (I) chair level Gait Training Gait Assistive Device: FWW Pt amb 300ft with FWW and CGA. Stair Training Stair Training: Handrails/: 2 handrails Pt amb up/down 12 steps smoothly and quickly, SBA Exercises NuStep Minutes: 20 NuStep Workload: 3 Assessment Current Status: Good Progress Pt dionte very well without signs of fatigue. Pt demonstrated mod (I) level with all functional mobility. Pt progressing nicely. Pt back to chair with call light and all needs met. PT Short Term Goals Short Term Goals Time Frame: Apr 08, 2017 PT Program Director [employer] Goals Program Director [employer] Goals PT Program Director [employer] Goals Time Frame: Apr 22, 2017 Transfers (B,C,W/C) (FIM): 6 Sit to Lying (QC): 6 Lying-Sitting on Side/Bed(QC): 6 Sit to Stand (QC): 6 Rollin Roll Left to Right (QC): 6 Car Transfer (QC): 6 Gait (FIM): 6 Distance: 1500' Walk 10 feet (QC): 6 Walk 10ft-Uneven Surface(QC): 6 Walk 50ft with 2 Turns (QC): 6 Walk 150 ft (QC): 6 Gait Assistive Device: FWW Stairs (FIM): 6 # of Steps: 12 1 Step (curb) (QC): 6 4 Steps (QC): 6 12 Steps (QC): 6 PT Plan Treatment/Plan Treatment Plan: Continue Plan of Care Treatment Plan: Bed Mobility, Education, Functional Activity [place], Functional Strength, Group Therapy, Gait, Safety, Therapeutic Exercise, Transfers Treatment Duration: Apr 22, 2017 Frequency: At least 5 of 7 days/Wk (IRF) Estimated Hrs Per Day: 1.5 hours per day Patient and/or Family Agrees t: Yes Time/GCodes Time In: 945 Time Out: 1025 Total Billed Treatment Time: 40 Total Billed Treatment 1, gait x 15min, Ex x 25 min INA DAWSON CPTA Apr 02, 2017 12:11
[2017-04-02] MEDS ORDERED: FUROSEMIDE 40 MG/4 ML INJ (LASIX) IVP ONE (13:15)
--- NOTE | 2017-04-02 13:19 | Progress Note-Hospitalist ---
Progress Note Progress Notes/Assess & Plan Date Seen 04/02/17 Time Seen by Provider: 12:00 Diagonsis/Assessment & Plan Patient doing well and ambulating well IV abx tolerated with midline Conferred with Dr Frank who will see him on Tuesday and arrange for lithotripsy Wed Pain controlled Decubitus ulcer much improved Bowels are still constipation so will add meds. Edema still an issue so will give IV Lasix and place DUR's on Feels dizzy due to elevated BP and I reviewed it to be 150/80. AFVSS, Pleasant, flat affect, son at bedside RRR, CTAB 1+ pitting edema Assessment: s/p sepsis due to UTI with ESBL and Entero on BCx w/obstruction from kidney stone s/p nephrostomy tube Tuesday by IR maintained on Meropenem for 4 more days then will need lithotripsy Tuesday Sacral decubitus ulcer Dr Murrieta consulted Chronic debility PT/OT consulted and IRU referral made Recent spine surgery 02/23/17 Dr Sharif HLP AF HTN Acute on CRF improved tsince N. tube placed BPH managed by Dr Frank Poor venous access requiring Midline Edema lower legs from fluids Plan: IV Lasix today and tomorrow Check labs in am Meropenem to be maintained Lithotripsy Wed CAROL JERRY DO Apr 02, 2017 13:19
[2017-04-02] MEDS: LACTULOSE SYRUP 10GM/15ML (ENULOSE) 30ML UDC PO SCH ×2 (13:26→21:06)
[2017-04-02 18:24] VITALS: BP 123/76
[2017-04-02] MEDS: FENOFIBRATE 134 MG (LOFIBRA) CAPSULE PO SCH (21:25)
[2017-04-03 05:06] VITALS: BP 118/69
[2017-04-03] MEDS: MEROPENEM 500 MG in NS (IVPB) 100 ML IV SCH ×3 (06:26→22:02)
[2017-04-03 06:43] LABS: BASOPHILS # (AUTO) 0.1 10^3/uL (0.0-0.1); BASOPHILS % (AUTO) 1 % (0-10); EOSINOPHILS # (AUTO) 0.1 10^3/uL (0.0-0.3); EOSINOPHILS % (AUTO) 1 % (0-10); LYMPHOCYTES # (AUTO) 1.7 X 10^3 (1.0-4.0); LYMPHOCYTES % (AUTO) 21 % (12-44); MEAN CORPUSCULAR HGB CONC 33 G/DL (32-36); MEAN CORPUSCULAR VOLUME 96 FL (80-99); MEAN PLATELET VOLUME 10.4 FL (7.4-10.4); MONOCYTES # (AUTO) 1.5 X 10^3 (0.0-1.0); MONOCYTES % (AUTO) 18 % (0-12); NEUTROPHILS # (AUTO) 4.7 X 10^3 (1.8-7.8); NEUTROPHILS % (AUTO) 59 % (42-75); PLATELET COUNT 284 10^3/uL (130-400); RED BLOOD COUNT 3.75 10^6/uL (4.35-5.85); RED CELL DISTRIBUTION WIDTH 14.8 % (10.0-14.5); WHITE BLOOD COUNT 8.1 10^3/uL (4.3-11.0)
[2017-04-03 06:53] LABS: MEAN CORPUSCULAR HEMOGLOBIN 31 PG (25-34)
[2017-04-03 06:55] LABS: ALBUMIN 3.3 GM/DL (3.2-4.5); BILIRUBIN,TOTAL 0.6 MG/DL (0.1-1.0); CALCIUM 9.2 MG/DL (8.5-10.1); CREATININE SERUM 1.52 MG/DL (0.60-1.30); POTASSIUM 3.6 MMOL/L (3.6-5.0); TOTAL PROTEIN 6.4 GM/DL (6.4-8.2)
[2017-04-03] MEDS ORDERED: FUROSEMIDE 40 MG/4 ML INJ (LASIX) IVP ONE (07:00)
[2017-04-03] MEDS: NYSTATIN CREAM (MYCOSTATIN) 30 GM TUBE TP SCH ×3 (08:05→21:55)
[2017-04-03] MEDS: LACTULOSE SYRUP 10GM/15ML (ENULOSE) 30ML UDC PO SCH ×2 (08:05→22:17)
--- NOTE | 2017-04-03 13:02 | Cardiology Progress Note ---
Cardiology SOAP Progress Note Subjective: No cardiac complaints Objective: I&O/Vital Signs Vital Sign - Last 12Hours 04/03/17 05:06 Temp 98.7 Pulse 72 Resp 18 B/P (MAP) 118/69 (85) Pulse Ox 94 O2 Delivery Room Air Weight (Pounds): 187 Weight (Ounces): 0.2 Weight (Calculated Kilograms): [id number] Constitutional: No appears stated age, No AAO x 3, No apparent distress, No PERRL, No well-developed, No well-nourished, No other Respiratory: No accessory muscle use, No respiratory distress, No chest tender , No chest expansion is symmetric, No chest is bilaterally symmetric, No lungs clear to percussion, No lungs clear to auscultation, No crackles, No rhonchi, No rales, No stridor, No wheezing, No pleural rub, No other Cardiovascular: No regular rate-rhythm, No irregularly irregular, No extra beats, No parasternal heave is noted, No JVD, No edema, No bradycardia, No tachycardia, No point of maximal impulse, No cardiac thrills are palpable, No S1 and S2, No gallop/S3, No gallop/S4, No diastolic murmur, No systolic murmur, No friction rub, No click, No other Gastrointestional: No tender, No soft, No round, No distended, No pulsatile mass, No organomegaly, No guarding, No rebound, No tenderness, No hernia, No mass, No audible bowel sounds, No abnormal bowel sounds, No abdominal bruits, No spleenomegaly, No other Extremities: No normal range of motion, No non-tender, No normal inspection, No pedal edema, No calf tenderness, No normal capillary refill, No pelvis stable , No calf tenderness, No inflammation, No pedal edema, No slow capillary refill , No swelling, No other, No abrasion, No clubbing, No cyanosis, No ecchymosis, No laceration, No no lower extremity edema bilateral, No significant edema, No tenderness, No wound Neurologic/Psychiatric: No pest control technician II-XII nml as tested, No no motor/sensory deficits, No alert, No normal mood/affect, No oriented x 3, No abnormal cerebellar tests, No abnormal pest control technician II-XII, No abnormal gait, No aphasia, No EOM palsy, No facial droop, No motor weakness, No sensory deficit, No depressed affect, No disoriented x 3, No other, No grossly intact, No power is 5/5 both on sides Skin: No normal color, No warm/dry, No cyanosis, No cool, No diaphoresis, No damp, No ecchymosis, No jaundice, No mottled, No pallor, No rash, No tattoos/ piercings, No ulcerations, No rash on exposed areas, No ulcerations on exposed areas, No other Results/Procedures: Labs Laboratory Tests 04/03/17 06:25: White Blood Count 8.1, Red Blood Count 3.75L, Hemoglobin 11.8#L, Hematocrit 36L , Mean Corpuscular Volume 96, Mean Corpuscular Hemoglobin 31, Mean Corpuscular Hemoglobin Concent 33, Red Cell Distribution Width 14.8H, Platelet Count 284, Mean Platelet Volume 10.4, Neutrophils (%) (Auto) 59, Lymphocytes (%) (Auto) 21 , Monocytes (%) (Auto) 18H, Eosinophils (%) (Auto) 1, Basophils (%) (Auto) 1, Neutrophils # (Auto) 4.7, Lymphocytes # (Auto) 1.7, Monocytes # (Auto) 1.5H, Eosinophils # (Auto) 0.1, Basophils # (Auto) 0.1, Sodium Level 142, Potassium Level 3.6, Chloride Level 106, Carbon Dioxide Level 25, Anion Gap 11, Blood Urea Nitrogen 31H, Creatinine 1.52H, Estimat Glomerular Filtration Rate 44, BUN/ Creatinine Ratio 20, Glucose Level 98, Calcium Level 9.2, Total Bilirubin 0.6, Aspartate Amino Transf (AST/SGOT) 19, Alanine Aminotransferase (ALT/SGPT) 17, Alkaline Phosphatase 67, Total Protein 6.4, Albumin 3.3 A/P: Assessment/Dx: Sepsis, UTI, paroxysmal atrial fibrillation Plan: Deferred treatment of sepsis, UTI, renal stones - on IV antibiotics. Acute on chronic CKD Paroxysmal atrial fibrillation: Currently in sinus rhythm. Previously aspirin discontinued before back surgery. Aspirin will be restarted once okay with surgery team. Continue Toprol-XL. Thank you for your consultation. Please call me if you have any questions. Rodolfo Salcedo MD, FACP, FACC, FSCAI, FHRS, CCDS Interventional Cardiology Cardiac Electrophysiology Vascular Medicine and Endovascular Interventions Lizet SALCEDO MD Apr 03, 2017 1:02 pm
[2017-04-03 18:00] VITALS: BP 123/83
[2017-04-03] MEDS: FENOFIBRATE 134 MG (LOFIBRA) CAPSULE PO SCH (21:54)
[2017-04-04 05:57] VITALS: BP 115/70
[2017-04-04] MEDS: MEROPENEM 500 MG in NS (IVPB) 100 ML IV SCH ×3 (06:35→22:14)
[2017-04-04] MEDS: NYSTATIN CREAM (MYCOSTATIN) 30 GM TUBE TP SCH ×3 (08:42→20:22)
[2017-04-04] MEDS: LACTULOSE SYRUP 10GM/15ML (ENULOSE) 30ML UDC PO SCH ×2 (08:42→20:21)
[2017-04-04] MEDS: BACLOFEN 10 MG (LIORESAL) TAB PO PRN ×2 (08:56→23:05)
--- NOTE | 2017-04-04 11:56 | Progress Note-Urology ---
Progress Note-Urology Progress Notes/Assess & Plan Progress/Assessment & Plan DOING VERY WELL. READY FOR ESWL TUESDAY Final Diagnosis RT RENAL STONE BRONWYN MAZARIEGOS MD Apr 04, 2017 11:56 am
--- NOTE | 2017-04-04 12:00 | Physical Therapy Daily Note ---
PT Daily Note-Current Subjective States he feels he is getting around well. Has pain in his back at 3/10 but improves with walking and exercise. Having lithotripsy Wed. Pain Numeric Pain Scale: 3 Location: Medial Location Body Site: Back Pain Description: Burning Mental Status Patient Orientation: Normal For Age Transfers Functional [place] Measure 0=Not Assessed/NA 4=Minimal Assistance 1=Total Assistance 5=Supervision or Setup 2=Maximal Assistance 6=Modified [place] 3=Moderate Assistance 7=Complete IndependenceIRFPAI Quality Coding Scale 6 Independent with activity with or without an assistive device 5 Patient requires set up or clean up by helper. Patient completes activity by themselves 4 Supervision or touching assist (CGA). [place] provide cues , steadying assist 3 The helper provides less than half the effort to complete the activity 2 The helper provides more than half the effort to complete the activity 1 Dependent. The helper does all the effort to complete an activity 7 Patient refused to complete or attempt activity 9 The patient did not perform the activity before the current illness or injury 88 Not attempted due to Medical conditions or safety concerns Transfers (B, C, W/C) (FIM): 7 Scootin Rollin Supine to/from Sit: 7 Sit to/from Stand: 7 Bed to/from Chair: 7 Gait Training Does the Patient Walk?: Yes Gait (FIM): 6 Distance (FIM): 3=150 ft (200x2) Gait Level of Assist: 6 Gait Persons Needed: 0 Gait Assistive Device: FWW reviewed posture etc. Stair Training Stair Training: Handrails/: 2 handrails Stairs (FIM): 6 #of Steps: 12 Stairs: Pattern: Reciprocal Level of Assist: 6 Exercises Seated Therapy Exercises: Ankle pumps, Sit to stand, Long arc quads, Hip flexion, Hip abd/add Seated Reps: 15 Standing: Hip Abduction, Hamstring curls, Heel/toe raises, Marching, Mini squats, Sit to Stand Standing Reps: 15 NuStep Minutes: 10 NuStep Workload: 5 Assessment Current Status: Excellent Progress PT Short Term Goals Short Term Goals Time Frame: Apr 08, 2017 PT Chief Mechanical Officer Goals Senior Living Goals PT Chief Mechanical Officer Goals Time Frame: Apr 22, 2017 Transfers (B,C,W/C) (FIM): 6 Sit to Lying (QC): 6 Lying-Sitting on Side/Bed(QC): 6 Sit to Stand (QC): 6 Rollin Roll Left to Right (QC): 6 Car Transfer (QC): 6 Gait (FIM): 6 Distance: 1500' Walk 10 feet (QC): 6 Walk 10ft-Uneven Surface(QC): 6 Walk 50ft with 2 Turns (QC): 6 Walk 150 ft (QC): 6 Gait Assistive Device: FWW Stairs (FIM): 6 # of Steps: 12 1 Step (curb) (QC): 6 4 Steps (QC): 6 12 Steps (QC): 6 PT Plan Treatment/Plan Treatment Plan: Continue Plan of Care Treatment Plan: Bed Mobility, Education, Functional Activity Rudolph, Functional Strength, Group Therapy, Gait, Safety, Therapeutic Exercise, Transfers Treatment Duration: Apr 22, 2017 Frequency: At least 5 of 7 days/Wk (IRF) Estimated Hrs Per Day: 1.5 hours per day Patient and/or Family Agrees t: Yes Safety Risks/Education Patient Education: Gait Training, Transfer Techniques, Steps, Correct Positioning, Disease Process, Safety Issues Teaching Recipient: Patient Teaching Methods: Demonstration, Discussion Response to Teaching: Verbalize Understanding, Return Demonstration, Reinforcement Needed Time/GCodes Time In: 1100 Time Out: 1200 Total Billed Treatment Time: 60 Total Billed Treatment 1,FA15m,EX25m,GT20m G Codes Necessary: NATALIA Hall PTA Apr 04, 2017 12:00
--- NOTE | 2017-04-04 14:13 | ST Cognitive Linguistic Eval ---
Speech Evaluation-General Medical Diagnosis Severe Sepsis, UTI, Stage I Decubitus Ulcer Onset Date: Mar 29, 2017 Therapy Diagnosis Therapy Diagnosis: Cognitive Linguistic Skills WNL Precautions Precautions/Isolations: Contact Isolation, Fall Prevention, Pressure Ulcer Referral Referring Physician: Dr. Neel Dalton Reason for Referral: Evaluation/Treatment Cognitive Evaluation Medical History Pertinent Medical History: Atrial Fib, Arthritis, GERD, HTN, Neuropathy, Renal Insufficiency Reviewed History: Yes Social History Current Living Status: Spouse Speech PLF-Current Status Prior Level of Function The patient denied prior cognitive deficits. Per patient, he has experienced "hoarseness" following a previous back procedure. The patient reported his vocal quality improved, however, returned to its "hoarse" quality following Lasix. The clinician believes the raspy quality may be secondary to reduced hydration and encouraged increased hydration throughout Lasix, if approved by his physician. If the patient's vocal quality does not improve in four weeks, he was encouraged to seek a referral to ENT for evaluation of his true vocal cords. Subjective The patient was recently admitted to [facility] for severe sepsis. The patient greeted the clinician and was agreeable to participation in the cognitive evaluation. Language Eval: Auditory Comprehends Simple Yes/No Ques: Functional Indent/Objects Multiple Florez: Functional Ident/Pics in Multiple Florez: Functional Follows 1-Step Commands: Functional Follows Complex Directions: Functional Follows General Conversations: Functional Language Eval: Verbal Language Completes Spontaneous Greeting: Functional Produces Auto, Serial Info: Functional Imitates Simple Words/Phrases: Functional Word Finding: Functional Requests Basic Needs: Functional States Basic Personal Info: Functional Expresses Complex Ideas: Functional Cognitive Patient Orientation The patient was independently oriented to self, location, month, year, and day of week. Objective Cognitive Domain Attention: WNL Memory: WNL Problem Solving: Functional Objective Impression The patient displayed cognitive linguistic skills WNL. Communication/Social Cognition Comprehension: 6 Expression: 6 Social Interaction: 6 Problem Solvin Memory: 6 Speech Patient Assess Expression of Ideas/Wants: Expression (4) Understanding [place] Content: Understands (4) Brief Interview-Mental Status: Yes Repetition of Three Words: Three (3) Temporal Orientation: Year: Correct (3) Temporal Orientation: Month: Accurate within 5 days(2) Temporal Orientation: Day: Correct (1) Recall : Wear to say "Sock": Yes,after cueing (1) Recall : Color: Yes, no cue required (2) Recall : Bed: Yes, no cue required (2) Speech-Plan Treatment Plan Speech Therapy Treatment Plan: Discontinue ST Evaluation, only. Frequency: Modified Program (IRF) Estimated Hrs Per Day: Other Rehab Potential: Good Safety Risks/Education Teaching Recipient: Patient Teaching Methods: Discussion Response to Teaching: Verbalize Understanding Education Topics Provided: Results, Recommendations, Plan of Care Time Speech Therapy Time In: 12:00 Speech Therapy Time Out: 12:15 Total Billed Time: 15 Billed Treatment Time 1, JUAN PABLO ARCE Apr 04, 2017 14:13
--- NOTE | 2017-04-04 14:28 | Physical Therapy Daily Note ---
PT Daily Note-Current Subjective Pt. agrees to Rx. States he hopes to have follow up appt with the wound care Dr after DC. States his pain is very low at approx 2/10 in his low/mid back Pain Numeric Pain Scale: 2 Location: Medial Location Body Site: Back Pain Description: Ache Mental Status Patient Orientation: Normal For Age Transfers Functional [place] Measure 0=Not Assessed/NA 4=Minimal Assistance 1=Total Assistance 5=Supervision or Setup 2=Maximal Assistance 6=Modified [place] 3=Moderate Assistance 7=Complete IndependenceIRFPAI Quality Coding Scale 6 Independent with activity with or without an assistive device 5 Patient requires set up or clean up by helper. Patient completes activity by themselves 4 Supervision or touching assist (CGA). [place] provide cues , steadying assist 3 The helper provides less than half the effort to complete the activity 2 The helper provides more than half the effort to complete the activity 1 Dependent. The helper does all the effort to complete an activity 7 Patient refused to complete or attempt activity 9 The patient did not perform the activity before the current illness or injury 88 Not attempted due to Medical conditions or safety concerns All TRFs mod I Gait Training Gait Assistive Device: FWW up ad monik status...fig 8s, retro gait, 360 degree turns , side step all with safe technique and no francia LOB Exercises NuStep Minutes: 15 NuStep Workload: 4 Treatments pt. feels his back feels better and stronger after good aerobic exercise on nutep Assessment Current Status: Good Progress PT Short Term Goals Short Term Goals Time Frame: Apr 08, 2017 PT Jail Goals Director Of Recruitment Goals PT Jail Goals Time Frame: Apr 22, 2017 Transfers (B,C,W/C) (FIM): 6 Sit to Lying (QC): 6 Lying-Sitting on Side/Bed(QC): 6 Sit to Stand (QC): 6 Rollin Roll Left to Right (QC): 6 Car Transfer (QC): 6 Gait (FIM): 6 Distance: 1500' Walk 10 feet (QC): 6 Walk 10ft-Uneven Surface(QC): 6 Walk 50ft with 2 Turns (QC): 6 Walk 150 ft (QC): 6 Gait Assistive Device: FWW Stairs (FIM): 6 # of Steps: 12 1 Step (curb) (QC): 6 4 Steps (QC): 6 12 Steps (QC): 6 PT Plan Treatment/Plan Treatment Plan: Continue Plan of Care Treatment Plan: Bed Mobility, Education, Functional Activity Rudolph, Functional Strength, Group Therapy, Gait, Safety, Therapeutic Exercise, Transfers Treatment Duration: Apr 22, 2017 Frequency: At least 5 of 7 days/Wk (IRF) Estimated Hrs Per Day: 1.5 hours per day Patient and/or Family Agrees t: Yes Safety Risks/Education Patient Education: Gait Training, Transfer Techniques, Correct Positioning, Disease Process, Safety Issues Teaching Recipient: Patient Teaching Methods: Demonstration, Discussion Response to Teaching: Verbalize Understanding, Return Demonstration Time/GCodes Time In: 1345 Time Out: 1415 Total Billed Treatment Time: 30 Total Billed Treatment 1,GT15m,EX15m G Codes Necessary: NATALIA Hall GEOSCIENCE LABORATORY TECHNICIAN Apr 04, 2017 14:28
--- NOTE | 2017-04-04 14:32 | Occupational Ther Daily Note ---
OT Current Status-Daily Note Subjective Pt in recliner at beginning of tx. Agreeable to therapy. No mention of pain. Appearance Alert, cooperative. Mental Status/Objective Functional [place] Measure 0=Not Assessed/NA 4=Minimal Assistance 1=Total Assistance 5=Supervision or Setup 2=Maximal Assistance 6=Modified [place] 3=Moderate Assistance 7=Complete [place] ADL-Treatment Functional [place] Measure 0=Not Assessed/NA 4=Minimal Assistance 1=Total Assistance 5=Supervision or Setup 2=Maximal Assistance 6=Modified [place] 3=Moderate Assistance 7=Complete IndependenceIRFPAI Quality Coding Scale 6 Independent with activity with or without an assistive device 5 Patient requires set up or clean up by helper. Patient completes activity by themselves 4 Supervision or touching assist (CGA). [place] provide cues , steadying assist 3 The helper provides less than half the effort to complete the activity 2 The helper provides more than half the effort to complete the activity 1 Dependent. The helper does all the effort to complete an activity 7 Patient refused to complete or attempt activity 9 The patient did not perform the activity before the current illness or injury 88 Not attempted due to Medical conditions or safety concerns Other Treatment Pt had already showered and dressed for the day but agreed to work in the gym. Pt walked to therapy gym with FWW and SBA with no observed LOB. Pt used arm bike for 12 minutes at 25 chen for strengthening to improve ADLs. Pt completed tabletop activities of removing and replacing graduated clothespins 2X and the ROM arc, on small and medium setting, with bilat UE while wearing 1# weights to increase strength to improve transfers. Pt walked to room with FWW and SBA. Pt in recliner with all needs met at end of tx. Education OT Patient Education: Progress toward Goal/Update tx plan, Purpose of tx/ functional activities Teaching Recipient: Patient Teaching Methods: Demonstration, Discussion Response to Teaching: Verbalize Understanding, Return Demonstration OT Short Term Goals Short Term Goals 1=Demonstrate adherence to instructed precautions during ADL tasks. 2=Patient will verbalize/demonstrate understanding of assistive devices/ modifications for ADL. 3=Patient will improve strength/tolerance for activity to enable patient to perform ADL's. OT Finishing Tunnel Operator Goals [facility] Goals Time Frame: Apr 15, 2017 Eating (FIM): 7 Eating (QC): 6 Groomin Oral Hygiene (QC): 6 Bathing(FIM): 6 Shower/Bathe Self (QC): 6 Upper Body Dressing(FIM): 6 Upper Body Dressing (QC): 6 Lower Body Dressing(FIM): 6 Lower Body Dressing (QC): 6 On/Off Footwear (QC): 6 Toileting(FIM): 6 Toileting Hygiene (QC): 6 Toilet/Commode Transfer(FIM): 6 Toilet/Commode Transfer (QC): 6 Tub Transfer(FIM): 6 Shower Transfer(FIM): 6 Additional Goals: 2-Verbalize Understanding, 3-ImproveStrength/Rudolph 1=Demonstrate adherence to instructed precautions during ADL tasks. 2=Patient will verbalize/demonstrate understanding of assistive devices/ modifications for ADL. 3=Patient will improve strength/tolerance for activity to enable patient to perform ADL's. OT Education/Plan Problem List/Assessment Pt would benefit from skilled OT to increase his independence in basic self care to allow him to safely return to his home and to decrease caregiver burden. Discharge Recommendations Plan/Recommendations: Continue POC Treatment Plan/Plan of Care Patient would benefit from OT for education, treatment and training to promote independence in ADL's, mobility, safety and/or upper extremity function for ADL' s. Plan of Care: ADL Retraining, Functional Mobility, Group Exercise/Act as Ind ( education, exercise, activity tolerance, functional activities), UE Funct Exercise/Act, OTHER (energy conservation education as apporpriate) Treatment Duration: Apr 15, 2017 Frequency: At least 5 of 7 days/Wk (IRF) Estimated Hrs Per Day: 1.5 hours per day Agreement: Yes Rehab Potential: Good Time/GCodes Start Time: 10:15 Stop Time: 11:00 Total Time Billed (hr/min): 45 Billed Treatment Time visit, exercise 45 minutes AYE SORENSON OT Apr 04, 2017 14:32
--- NOTE | 2017-04-04 14:44 | Occupational Ther Daily Note ---
OT Current Status-Daily Note Subjective Pt in recliner at beginning of tx. Agreeable to therapy. No mention of pain. Appearance Alert, cooperative. Mental Status/Objective Functional [place] Measure 0=Not Assessed/NA 4=Minimal Assistance 1=Total Assistance 5=Supervision or Setup 2=Maximal Assistance 6=Modified [place] 3=Moderate Assistance 7=Complete [place] ADL-Treatment Pt walked to bathroom with FWW and SBA for safety. Pt has been made ad monik in room per PT. Functional [place] Measure 0=Not Assessed/NA 4=Minimal Assistance 1=Total Assistance 5=Supervision or Setup 2=Maximal Assistance 6=Modified [place] 3=Moderate Assistance 7=Complete IndependenceIRFPAI Quality Coding Scale 6 Independent with activity with or without an assistive device 5 Patient requires set up or clean up by helper. Patient completes activity by themselves 4 Supervision or touching assist (CGA). [place] provide cues , steadying assist 3 The helper provides less than half the effort to complete the activity 2 The helper provides more than half the effort to complete the activity 1 Dependent. The helper does all the effort to complete an activity 7 Patient refused to complete or attempt activity 9 The patient did not perform the activity before the current illness or injury 88 Not attempted due to Medical conditions or safety concerns Toileting (FIM): 5 (Pt able to manage clothing and hygiene but nursing had to empty urine bag. Tall toilet, FWW, grab bars, ) Toilet/Commode Transfer (FIM): 6 (Pt able to transfer on and off toilet with no observed LOB. Tall toilet, grab bars, FWW. ) Other Treatment Pt walked to gym with FWW and SBA. Pt was educated on 7 arm exercise for shoulder, elbow, forearm, and wrist with pt being able to return demonstration by completing 2 sets of 10 reps for each exercise. Pt used a 2# hand weight on each exercise except R elbow extension (unable to fully extend with weight). Pt demonstrated some compensatory movements R shoulder.Pt able to recall 6/7 theraband exercises and completed 1 set of 10 reps for each exercise. These exercises will increase strength to improve ADLs. Pt walked to room with FWW and supervision. Pt was in recliner with all needs met at end of tx. Education OT Patient Education: Correct positioning, Exercise program, Progress toward Goal/Update tx plan, Purpose of tx/functional activities Teaching Recipient: Patient Teaching Methods: Demonstration, Discussion Response to Teaching: Verbalize Understanding, Return Demonstration OT Short Term Goals Short Term Goals 1=Demonstrate adherence to instructed precautions during ADL tasks. 2=Patient will verbalize/demonstrate understanding of assistive devices/ modifications for ADL. 3=Patient will improve strength/tolerance for activity to enable patient to perform ADL's. OT Assistant Portfolio Manager Goals Shelter Goals Time Frame: Apr 15, 2017 Eating (FIM): 7 Eating (QC): 6 Groomin Oral Hygiene (QC): 6 Bathing(FIM): 6 Shower/Bathe Self (QC): 6 Upper Body Dressing(FIM): 6 Upper Body Dressing (QC): 6 Lower Body Dressing(FIM): 6 Lower Body Dressing (QC): 6 On/Off Footwear (QC): 6 Toileting(FIM): 6 Toileting Hygiene (QC): 6 Toilet/Commode Transfer(FIM): 6 Toilet/Commode Transfer (QC): 6 Tub Transfer(FIM): 6 Shower Transfer(FIM): 6 Additional Goals: 2-Verbalize Understanding, 3-ImproveStrength/[place] 1=Demonstrate adherence to instructed precautions during ADL tasks. 2=Patient will verbalize/demonstrate understanding of assistive devices/ modifications for ADL. 3=Patient will improve strength/tolerance for activity to enable patient to perform ADL's. OT Education/Plan Problem List/Assessment Pt would benefit from skilled OT to increase his independence in basic self care to allow him to safely return to his home and to decrease caregiver burden. Discharge Recommendations Plan/Recommendations: Continue POC Treatment Plan/Plan of Care Patient would benefit from OT for education, treatment and training to promote independence in ADL's, mobility, safety and/or upper extremity function for ADL' s. Plan of Care: ADL Retraining, Functional Mobility, Group Exercise/Act as Ind ( education, exercise, activity tolerance, functional activities), UE Funct Exercise/Act, OTHER (energy conservation education as apporpriate) Treatment Duration: Apr 15, 2017 Frequency: At least 5 of 7 days/Wk (IRF) Estimated Hrs Per Day: 1.5 hours per day Agreement: Yes Rehab Potential: Good Time/GCodes Start Time: 13:00 Stop Time: 13:45 Total Time Billed (hr/min): 45 Billed Treatment Time visit, exercise 40 minutes, ADL 5 minutes KLUSENER,AYE OT Apr 04, 2017 14:44
--- NOTE | 2017-04-04 15:40 | Individualized Plan of Care ---
Individualized Plan of Care Rehab Nursing IPOC Order Admission Date Apr 01, 2017 at 12:45 Current Orders Orders Admission-Acute Rehab Unit (04/01/17 12:44) Pt Evaluate/Treat Request (04/01/17 12:44) Request Ot Evaluate & Treat (04/01/17 12:44) Request For Cognitive Services (04/01/17 12:44) Admission Arrival Bed Request (04/01/17 13:49) Code/Resuscitation (04/01/17 14:00) Consult Physician (04/01/17 14:00) Consult Physician (04/01/17 14:00) Consult Physician (04/01/17 14:00) Consult Physician (04/01/17 14:00) Isolation Central Supply Req (04/01/17 14:00) General/Regular (04/01/17 Lunch) Dressing Order & Int (Surg/Med Q48H (04/01/17 14:00) Vancomycin Injection (Vancomycin Injecti (04/02/17 08:00) Meropenem (Merrem 500 Mg) (04/01/17 14:00) Hydrocodone/Apap 5/325 Tablet (Lortab 5 (04/01/17 14:00) Acetaminophen Tablet/Caplet (Tylenol T (04/01/17 14:00) Baclofen Tablet (Lioresal Tablet) (04/01/17 14:00) Metoprolol Succinate (Xl) Tab (Toprol Xl (04/01/17 21:00) Fenofibrate,Micronized Capsule (Lofibra (04/01/17 21:00) Pantoprazole Tablet (Protonix Tablet) (04/01/17 14:00) Consult Physician (04/01/17 14:27) Ambulate TID (04/01/17 14:43) Sequential Compression Device 08,20 (04/01/17 14:43) Dvt/Vte Risk - Notifiy Physici (04/01/17 14:43) Patient Visit (04/01/17 ) Pt Eval Moderate Complexity (04/01/17 ) Gait Training, Ea 15 Min (04/01/17 ) Exercise Therap, Ea 15 Min (04/01/17 ) Nystatin Cream (Mycostatin Cream) (04/01/17 21:00) Patient Visit (04/02/17 ) Gait Training, Ea 15 Min (04/02/17 ) Exercise Therap, Ea 15 Min (04/02/17 ) Senna S Tablet (Senokot S Tablet) (04/02/17 12:00) Exercise Therap, Ea 15 Min (04/02/17 ) Furosemide Injection (Lasix Injection) (04/02/17 13:15) Lactulose Oral Solution (Enulose Oral So (04/02/17 13:15) Cbc With Automated Diff (04/03/17 06:00) Comprehensive Metabolic Panel (04/03/17 06:00) Furosemide Injection (Lasix Injection) (04/03/17 07:00) Geovanni Hose 09,21 (04/02/17 13:13) Abdomen/Kub 1view (04/05/17 07:00) Patient Visit (04/04/17 ) Functional Activities, Ea 15 (04/04/17 ) Exercise Therap, Ea 15 Min (04/04/17 ) Gait Training, Ea 15 Min (04/04/17 ) Patient Visit (04/04/17 ) Speech Sound Lang Comp (04/04/17 ) Patient Visit (04/04/17 ) Exercise Therap, Ea 15 Min (04/04/17 ) Gait Training, Ea 15 Min (04/04/17 ) Other Nursing Orders: Monitor for urinary retention and constipation provide nephrostomy tube car Intensity of Therapy to be met Patient to be seen: Min.3h per day/5 of 7d PT IPOC Problem List: Activity Tolerance, Functional Strength, Safety, Balance, Gait, Transfer, Bed Mobility Treatment Plan: Continue Plan of Care Bed Mobility, Education, Functional Activity Rudolph, Functional Strength, Group Therapy, Gait, Safety, Therapeutic Exercise, Transfers Treatment Duration: Apr 22, 2017 Frequency: At least 5 of 7 days/Wk (IRF) Estimated Hrs Per Day: 1.5 hours per day OT IPOC Problems: Decreased Activ Tolerance, Decreased UE Strength, Impaired I ADL's OT Treatment, Training and Edu: Yes OT Problems Pt would benefit from skilled OT to increase his independence in basic self care to allow him to safely return to his home and to decrease caregiver burden. Plan of Care: ADL Retraining, Functional Mobility, Group Exercise/Act as Ind ( education, exercise, activity tolerance, functional activities), UE Funct Exercise/Act, OTHER (energy conservation education as apporpriate) Treatment Duration: Apr 15, 2017 Frequency: At least 5 of 7 days/Wk (IRF) Estimated Hrs Per Day: 1.[address] IPOC Speech Therapy Treatment Plan: Discontinue ST Treatment Duration: Apr 04, 2017 Frequency: Modified Program (IRF) Estimated Hrs Per Day: Other Credentialing Specialist/Case Mgmt Credentialing Specialist/Case Managemen: Discharge Planning, Patient/Family Counseling Physician IPOC Medical Issues being managed closely and that require the 24 hour availability of a physician:pain management Peripheral edema A FIb CRI HTN Medical Issues: Bowel/Bladder Function, DVT Prophylaxis, Falls Precautions, Fluid/Electrolyte/Nutrition Balance, Infection Protection, Pain Management, Wound Care, Other (List) (as per above) Brief Synthesis of Preadmission Screen, Post-Admission Evaluation, and Therapy Evaluations: 87 yo male s/p neprostomy tube for UTI with Renal stone right being followed by DR Zac BRAGA and Cardiology and hospitalist.C/O pain in low back and RN indicates that DR Murrieta has seen him for skin care and no pressure sore noted..Patient had been Independent prior to this and functionally doing quite well.Patient to have Lithotripsy on Tuesday. Medical Prognosis: Good Anticipated Length of Stay: 7 days Rehab Goals Modified Independent for adl and mobility skills Anticipated discharge destinat: Home with family and [facility] ALLYSON KAM MD Apr 04, 2017 15:40
--- NOTE | 2017-04-04 15:50 | PM & R (SOAP) Progress Note ---
Subjective Time Seen by Provider: 15:00 Subjective/Events-last exam Patient was seen in his room this afternoon Patient Modified Independent for transfers Appreciate DR montalvo and manuel note Patient scheduled to have lithotripsy on Tuesday04-06-17 Objective Exam Last Set of Vital Signs Vital Signs Date Time Temp Pulse Resp B/P (MAP) Pulse Ox O2 Delivery O2 Flow Rate FiO2 04/04/17 05:57 98.0 60 17 115/70 (85) 94 Room Air Capillary Refill : I&O Intake and Output 04/04/17 00:00 Intake Total 1525 ml Output Total 2700 ml Balance -1175 ml Intake Oral 1240 ml IV Total 285 ml Output Urine Total 2700 ml # Voids 2 General: Alert, Oriented X3, Cooperative, No Acute Distress HEENT: Atraumatic, PERRLA, EOMI, Mucous Memb Moist/[place] Neck: Supple, No JVD Lungs: Clear to Auscultation Heart: Regular Rate Abdomen: Normal Bowel Sounds, Soft, No Tenderness Extremities: No Edema (+ edema sandeep hose in place), Other (+ edema both legs with decressed sensation to light touch sandeep hose in place) Neuro: Other (4/5 strength BUES and strength BLES 5/5 at ankles and 4+5 at knees and 4/5 at hips) Results Lab Laboratory Tests 04/03/17 06:25: White Blood Count 8.1, Red Blood Count 3.75L, Hemoglobin 11.8#L, Hematocrit 36L , Mean Corpuscular Volume 96, Mean Corpuscular Hemoglobin 31, Mean Corpuscular Hemoglobin Concent 33, Red Cell Distribution Width 14.8H, Platelet Count 284, Mean Platelet Volume 10.4, Neutrophils (%) (Auto) 59, Lymphocytes (%) (Auto) 21 , Monocytes (%) (Auto) 18H, Eosinophils (%) (Auto) 1, Basophils (%) (Auto) 1, Neutrophils # (Auto) 4.7, Lymphocytes # (Auto) 1.7, Monocytes # (Auto) 1.5H, Eosinophils # (Auto) 0.1, Basophils # (Auto) 0.1, Sodium Level 142, Potassium Level 3.6, Chloride Level 106, Carbon Dioxide Level 25, Anion Gap 11, Blood Urea Nitrogen 31H, Creatinine 1.52H, Estimat Glomerular Filtration Rate 44, BUN/ Creatinine Ratio 20, Glucose Level 98, Calcium Level 9.2, Total Bilirubin 0.6, Aspartate Amino Transf (AST/SGOT) 19, Alanine Aminotransferase (ALT/SGPT) 17, Alkaline Phosphatase 67, Total Protein 6.4, Albumin 3.3 Assessment/Plan Assessment General debil s/p ESBL UTI on antibiotics with underlying RT Kidney stone s/p Nephrostomy tube and to have lithotripsy with DR Frank this Tuesday04/06/17 A fib Controlled with meds HTn controlled Back pain-treat symptomatically Peripheral edema=Dr Zimmerman has addressed with lasix Plan Continue PT/OT/Pain management/Nephrostomy care F/U with Hospitalist and Dr Frank as per above ALLYSON KAM MD Apr 04, 2017 15:50
[2017-04-04 18:23] VITALS: BP 125/75
[2017-04-04] MEDS: FENOFIBRATE 134 MG (LOFIBRA) CAPSULE PO SCH (20:21)
[2017-04-04] MEDS: ACETAMINOPHEN 325 MG TABLET/CAPLET (TYLENOL) PO PRN (23:05)
[2017-04-05 05:00] VITALS: BP 121/73
[2017-04-05] MEDS: MEROPENEM 500 MG in NS (IVPB) 100 ML IV SCH ×3 (05:39→21:06)
[2017-04-05] MEDS: ACETAMINOPHEN 325 MG TABLET/CAPLET (TYLENOL) PO PRN ×2 (06:23→21:05)
--- NOTE | 2017-04-05 08:35 | Progress Note-Urology ---
Progress Note-Urology Progress Notes/Assess & Plan Progress/Assessment & Plan RT ESWL TOMORROW, FULLY EXPLAINED TO PATIEN. ALL QUESTIONS ANSWERED Final Diagnosis RT RENAL STONE BRONWYN MAZARIEGOS MD Apr 05, 2017 08:35
[2017-04-05] MEDS: LACTULOSE SYRUP 10GM/15ML (ENULOSE) 30ML UDC PO SCH ×2 (08:46→21:05)
[2017-04-05] MEDS: NYSTATIN CREAM (MYCOSTATIN) 30 GM TUBE TP SCH ×3 (08:46→21:05)
--- NOTE | 2017-04-05 09:07 | PM & R (SOAP) Progress Note ---
Subjective Time Seen by Provider: 07:50 Subjective/Events-last exam Patient was seen in his room this AM Patient feeling bettter with decreased pain and using Tylenol prn Nephrostomy tube rt in place Patient Modifeid Independent for transfers and gait with WW/Discussed case with Nursing Patient may be discharged tomorrow with follow up lithotripsy on an outpatient basis with DR Zac BRAGA Objective Exam Last Set of Vital Signs Vital Signs Date Time Temp Pulse Resp B/P (MAP) Pulse Ox O2 Delivery O2 Flow Rate FiO2 04/05/17 05:00 99.0 60 20 121/73 (89) 96 Room Air Capillary Refill : I&O Intake and Output 04/05/17 00:00 Intake Total 2392 ml Output Total 1750 ml Balance 642 ml Intake Oral 2100 ml IV Total 292 ml Output Urine Total 1750 ml # Voids 8 # Bowel Movements 3 General: Alert, Oriented X3, Cooperative, No Acute Distress HEENT: Atraumatic, PERRLA, EOMI, Mucous Memb Moist/[place] Neck: Supple, No JVD Lungs: Clear to Auscultation Heart: Regular Rate Abdomen: Normal Bowel Sounds, Soft, No Tenderness Extremities: No Edema (+ edema sandeep hose in place), Other (+ edema both legs with decressed sensation to light touch sandeep hose in place) Neuro: Other (4/5 strength BUES and strength BLES 5/5 at ankles and 4+5 at knees and 4/5 at hips) Results Lab Laboratory Tests 04/03/17 06:25: White Blood Count 8.1, Red Blood Count 3.75L, Hemoglobin 11.8#L, Hematocrit 36L , Mean Corpuscular Volume 96, Mean Corpuscular Hemoglobin 31, Mean Corpuscular Hemoglobin Concent 33, Red Cell Distribution Width 14.8H, Platelet Count 284, Mean Platelet Volume 10.4, Neutrophils (%) (Auto) 59, Lymphocytes (%) (Auto) 21 , Monocytes (%) (Auto) 18H, Eosinophils (%) (Auto) 1, Basophils (%) (Auto) 1, Neutrophils # (Auto) 4.7, Lymphocytes # (Auto) 1.7, Monocytes # (Auto) 1.5H, Eosinophils # (Auto) 0.1, Basophils # (Auto) 0.1, Sodium Level 142, Potassium Level 3.6, Chloride Level 106, Carbon Dioxide Level 25, Anion Gap 11, Blood Urea Nitrogen 31H, Creatinine 1.52H, Estimat Glomerular Filtration Rate 44, BUN/ Creatinine Ratio 20, Glucose Level 98, Calcium Level 9.2, Total Bilirubin 0.6, Aspartate Amino Transf (AST/SGOT) 19, Alanine Aminotransferase (ALT/SGPT) 17, Alkaline Phosphatase 67, Total Protein 6.4, Albumin 3.3 Assessment/Plan Assessment General debil s/p ESBL UTI on antibiotics with underlying RT Kidney stone s/p Nephrostomy tube and to have lithotripsy with DR Frank this Tuesday04/06/17 A fib Controlled with meds HTn controlled Back pain-treat symptomatically Peripheral edema=Dr Zimmerman has addressed with lasix Plan Continue PT/OT/Pain management/Nephrostomy care F/U with Hospitalist and Dr Frank as per above Probable discharge to home tomorrow Team Conference tomorrow 04-06-17 Dr Reeder covering my service for 04-06-17- [facility] 04-12-17 ALLYSON KAM MD Apr 05, 2017 09:07
--- NOTE | 2017-04-05 09:10 | Diagnostic Imaging Report ---
EXAMINATION: Supine view of the abdomen. INDICATION: Right renal stone. FINDINGS: There is a 1.5 cm stone seen in the right flank. There is also a right nephrostomy tube noted. The spine demonstrate scoliosis with fusion hardware seen involving L2/3 and L3/4 and L4/5 levels. Moderate amount of fecal material in the colon is noted. Advanced degenerative changes in the hip joint seen. IMPRESSION: 1.5 cm stone in the right renal collecting system is seen adjacent to nephrostomy tube distal loop. Dictated by: Dictated on workstation # [id number]
--- NOTE | 2017-04-05 10:42 | Occupational Ther Daily Note ---
OT Current Status-Daily Note Subjective Pt in bed at beginning of tx. Agreeable to therapy. No mention of pain. Appearance Alert, cooperative. Mental Status/Objective Functional [place] Measure 0=Not Assessed/NA 4=Minimal Assistance 1=Total Assistance 5=Supervision or Setup 2=Maximal Assistance 6=Modified [place] 3=Moderate Assistance 7=Complete [place] ADL-Treatment Pt walked to bathroom to do grooming with FWW for energy conservation. Pt walked from bathroom to closet to retrieve clothing, then back to bathroom with FWW. Functional [place] Measure 0=Not Assessed/NA 4=Minimal Assistance 1=Total Assistance 5=Supervision or Setup 2=Maximal Assistance 6=Modified [place] 3=Moderate Assistance 7=Complete IndependenceIRFPAI Quality Coding Scale 6 Independent with activity with or without an assistive device 5 Patient requires set up or clean up by helper. Patient completes activity by themselves 4 Supervision or touching assist (CGA). [place] provide cues , steadying assist 3 The helper provides less than half the effort to complete the activity 2 The helper provides more than half the effort to complete the activity 1 Dependent. The helper does all the effort to complete an activity 7 Patient refused to complete or attempt activity 9 The patient did not perform the activity before the current illness or injury 88 Not attempted due to Medical conditions or safety concerns Eating (FIM): 7 (Pt reports no difficulty with opening packages or containers or feeding himself) Eating (QC): 6 Grooming (FIM): 6 (Pt stood at sink to shave with regular razor, brush teeth, and comb hair with FWW for safety with no observed LOB. FWW ) Oral Hygiene (QC): 6 Bathing (FIM): 5 (Pt washed 10 parts with no assist, no observed LOB when standing to rinse and dry. Pt able to turn water off and on and retrieve clothing and towel. Shower bench, grab bars, hand held shower. Setup to cover IV site) Shower/Bathe Self (QC): 5 Upper Body (FIM): 6 (Pt able to doff and don button up shirt and button it while sitting with no assist. FWW used to retrieve clean clothes from closet and put dirty ones away) Upper Body Dressing (QC): 6 Lower Body Dressing (FIM): 6 (Pt able to doff and don underwear and pants with no assist. Pt stood to manage clothing no observed LOB. FWW to retrieve clean clothes and put dirty ones away) Lower Body Dressing (QC): 6 On/Off Footwear (QC): 6 (Pt able to doff and don socks while seated with no assist. ) Toileting (FIM): 5 (Pt is able to manage clothing and hygiene with no assist and no observed LOB. Pt does have a urine bag that is emptied by nursing, setup. Tall toilet, grab bar, FWW) Toileting Hygiene (QC): 5 (Setup for urine bag. ) Toilet/Commode Transfer (FIM): 6 (Pt able to transfer on and off toilet with no assist and no observed LOB. Tall toilet, grab bars, FWW) Toilet Transfer (QC): 6 Shower Transfer(FIM): 6 (Pt able to transfer on and off shower bench with no assist and no observed LOB.Shower bench, grab bars, FWW. ) Pt walked to closet with FWW and supervision to put clothes in closet. Pt seated EOB with all needs met at end of tx. Education OT Patient Education: Progress toward Goal/Update tx plan, Purpose of tx/ functional activities Teaching Recipient: Patient Teaching Methods: Discussion Response to Teaching: Verbalize Understanding OT Short Term Goals Short Term Goals 1=Demonstrate adherence to instructed precautions during ADL tasks. 2=Patient will verbalize/demonstrate understanding of assistive devices/ modifications for ADL. 3=Patient will improve strength/tolerance for activity to enable patient to perform ADL's. OT Assisted Goals Assisted Goals Time Frame: Apr 15, 2017 Eating (FIM): 7 Eating (QC): 6 Groomin Oral Hygiene (QC): 6 Bathing(FIM): 6 Shower/Bathe Self (QC): 6 Upper Body Dressing(FIM): 6 Upper Body Dressing (QC): 6 Lower Body Dressing(FIM): 6 Lower Body Dressing (QC): 6 On/Off Footwear (QC): 6 Toileting(FIM): 6 Toileting Hygiene (QC): 6 Toilet/Commode Transfer(FIM): 6 Toilet/Commode Transfer (QC): 6 Tub Transfer(FIM): 6 Shower Transfer(FIM): 6 Additional Goals: 2-Verbalize Understanding, 3-ImproveStrength/Rudolph 1=Demonstrate adherence to instructed precautions during ADL tasks. 2=Patient will verbalize/demonstrate understanding of assistive devices/ modifications for ADL. 3=Patient will improve strength/tolerance for activity to enable patient to perform ADL's. OT Education/Plan Problem List/Assessment Pt would benefit from skilled OT to increase his independence in basic self care to allow him to safely return to his home and to decrease caregiver burden. Discharge Recommendations Plan/Recommendations: Continue POC Treatment Plan/Plan of Care Patient would benefit from OT for education, treatment and training to promote independence in ADL's, mobility, safety and/or upper extremity function for ADL' s. Plan of Care: ADL Retraining, Functional Mobility, Group Exercise/Act as Ind ( education, exercise, activity tolerance, functional activities), UE Funct Exercise/Act, OTHER (energy conservation education as apporpriate) Treatment Duration: Apr 15, 2017 Frequency: At least 5 of 7 days/Wk (IRF) Estimated Hrs Per Day: 1.5 hours per day Agreement: Yes Rehab Potential: Good Time/GCodes Start Time: 08:20 Stop Time: 09:20 Total Time Billed (hr/min): 60 Billed Treatment Time visit, ADL 60 minutes AYE SORENSON OT Apr 05, 2017 10:42
--- NOTE | 2017-04-05 11:04 | Physical Therapy Daily Note ---
PT Daily Note-Current Subjective Pt standing with FWW upon arrival. Pt agrees to PT. Pain Numeric Pain Scale: 4 Location: Dorsal Location Body Site: Back Pain Description: Ache Mental Status Patient Orientation: Person, Place, Time, Situation Transfers Functional [place] Measure 0=Not Assessed/NA 4=Minimal Assistance 1=Total Assistance 5=Supervision or Setup 2=Maximal Assistance 6=Modified [place] 3=Moderate Assistance 7=Complete IndependenceIRFPAI Quality Coding Scale 6 Independent with activity with or without an assistive device 5 Patient requires set up or clean up by helper. Patient completes activity by themselves 4 Supervision or touching assist (CGA). [place] provide cues , steadying assist 3 The helper provides less than half the effort to complete the activity 2 The helper provides more than half the effort to complete the activity 1 Dependent. The helper does all the effort to complete an activity 7 Patient refused to complete or attempt activity 9 The patient did not perform the activity before the current illness or injury 88 Not attempted due to Medical conditions or safety concerns Transfers (B, C, W/C) (FIM): 6 Scootin Rollin Roll Left to Right (QC): 6 Supine to/from Sit: 6 Sit to/from Stand: 6 Sit to Lying (QC): 6 Sit to Stand (QC): 6 Chair/Rqo-ax-Pypef Xfer(QC): 6 Bed to/from Chair: 6 Car Transfer (QC): 6 Weight Bearing Right Lower Extremity: Right Full Weight Bearing Left Lower Extremity: Left Full Weight Bearing Gait Training Does the Patient Walk?: Yes Gait (FIM): 6 Distance (FIM): 3=150 ft Distance: 1000' Walk 10 feet (QC): 6 Walk 50 ft with 2 Turns(QC): 6 Walk 150 ft (QC): 6 Walking 10ft/uneven surface-QC: 6 Gait Level of Assist: 6 Gait Persons Needed: 1 Gait Assistive Device: FWW Pt walks with normalized gait and improved activity tolerance. Pt's gait is steady, no LOB. Wheelchair Training Does the Pt Use a Wheelchair?: No Stair Training Stair Training: Handrails/: 1 handrail Stairs (FIM): 6 #of Steps: 12 1 Step (curb) (QC): 6 4 Steps (QC): 6 12 Steps (QC): 6 Stairs: Pattern: Reciprocal Level of Assist: 6 Balance Picking up an Object (QC): 88 Special Test Comments Pt is unable to complete due to back precautions given by surgeon. Exercises NuStep Minutes: 10 Treatments Pt ambulates in hallway using FWW at Mod I. Pt completes transfers at Mod I. Pt uses NuStep for 10m at Workload 5. Pt completes ambulation across uneven surface for at least 10' and 3 sets of 4 stairs at Mod I. Pt takes rest as needed but able to complete several tasks before resting. Pt rests in recliner at end of tx with all needs met. Assessment Current Status: Good Progress Pt has good, normalized gait pattern and transfers well. Pt is able to complete bed mobility without assistance. PT Short Term Goals Short Term Goals Time Frame: Apr 08, 2017 PT Director Online Marketing Goals Group Home Goals PT Director Online Marketing Goals Time Frame: Apr 22, 2017 Transfers (B,C,W/C) (FIM): 6 Sit to Lying (QC): 6 Lying-Sitting on Side/Bed(QC): 6 Sit to Stand (QC): 6 Rollin Roll Left to Right (QC): 6 Car Transfer (QC): 6 Gait (FIM): 6 Distance: 1500' Walk 10 feet (QC): 6 Walk 10ft-Uneven Surface(QC): 6 Walk 50ft with 2 Turns (QC): 6 Walk 150 ft (QC): 6 Gait Assistive Device: FWW Stairs (FIM): 6 # of Steps: 12 1 Step (curb) (QC): 6 4 Steps (QC): 6 12 Steps (QC): 6 PT Plan Problem List Problem List: Activity Tolerance Treatment/Plan Treatment Plan: Continue Plan of Care Treatment Plan: Bed Mobility, Education, Functional Activity Rudolph, Functional Strength, Group Therapy, Gait, Safety, Therapeutic Exercise, Transfers Treatment Duration: Apr 22, 2017 Frequency: At least 5 of 7 days/Wk (IRF) Estimated Hrs Per Day: 1.5 hours per day Patient and/or Family Agrees t: Yes Safety Risks/Education Patient Education: Gait Training, Correct Positioning, Safety Issues Teaching Recipient: Patient Teaching Methods: Discussion Response to Teaching: Verbalize Understanding Time/GCodes Time In: 1005 Time Out: 1105 Total Billed Treatment Time: 60 Total Billed Treatment 1, GT x2 (30m), EX (20m) & FA (10m) CONNOR UMANZOR SUPERVISOR [employer]OTOENG[employer]VING Apr 05, 2017 11:04
--- NOTE | 2017-04-05 14:19 | Occupational Ther Daily Note ---
OT Current Status-Daily Note Subjective Pt in recliner at beginning of tx. Agreed to therapy. No mention of pain. Appearance Alert, cooperative. Mental Status/Objective Functional [place] Measure 0=Not Assessed/NA 4=Minimal Assistance 1=Total Assistance 5=Supervision or Setup 2=Maximal Assistance 6=Modified [place] 3=Moderate Assistance 7=Complete [place] ADL-Treatment Functional [place] Measure 0=Not Assessed/NA 4=Minimal Assistance 1=Total Assistance 5=Supervision or Setup 2=Maximal Assistance 6=Modified [place] 3=Moderate Assistance 7=Complete IndependenceIRFPAI Quality Coding Scale 6 Independent with activity with or without an assistive device 5 Patient requires set up or clean up by helper. Patient completes activity by themselves 4 Supervision or touching assist (CGA). [place] provide cues , steadying assist 3 The helper provides less than half the effort to complete the activity 2 The helper provides more than half the effort to complete the activity 1 Dependent. The helper does all the effort to complete an activity 7 Patient refused to complete or attempt activity 9 The patient did not perform the activity before the current illness or injury 88 Not attempted due to Medical conditions or safety concerns Other Treatment Pt walked to gym with FWW for energy conservation. Pt completed 14 minutes at 25 chen on arm bike with bilat UE for strengthening for transfers from lower surfaces. Pt moved rings on ROM arc with bilat UE (3 times for each arm) while wearing a 2# weight on R wrist to increase strength to improve transfers. Pt wore a 2# weight on L wrist but fatigued arm before finishing one round, was able to finish when weight removed. Pt walked to room with FWW. Pt in recliner with all needs met at end of tx. Education OT Patient Education: Progress toward Goal/Update tx plan, Purpose of tx/ functional activities Teaching Recipient: Patient Teaching Methods: Discussion Response to Teaching: Verbalize Understanding OT Short Term Goals Short Term Goals 1=Demonstrate adherence to instructed precautions during ADL tasks. 2=Patient will verbalize/demonstrate understanding of assistive devices/ modifications for ADL. 3=Patient will improve strength/tolerance for activity to enable patient to perform ADL's. OT Music Specialist Goals Retirement Goals Time Frame: Apr 15, 2017 Eating (FIM): 7 Eating (QC): 6 Groomin Oral Hygiene (QC): 6 Bathing(FIM): 6 Shower/Bathe Self (QC): 6 Upper Body Dressing(FIM): 6 Upper Body Dressing (QC): 6 Lower Body Dressing(FIM): 6 Lower Body Dressing (QC): 6 On/Off Footwear (QC): 6 Toileting(FIM): 6 Toileting Hygiene (QC): 6 Toilet/Commode Transfer(FIM): 6 Toilet/Commode Transfer (QC): 6 Tub Transfer(FIM): 6 Shower Transfer(FIM): 6 Additional Goals: 2-Verbalize Understanding, 3-ImproveStrength/Rudolph 1=Demonstrate adherence to instructed precautions during ADL tasks. 2=Patient will verbalize/demonstrate understanding of assistive devices/ modifications for ADL. 3=Patient will improve strength/tolerance for activity to enable patient to perform ADL's. OT Education/Plan Problem List/Assessment Pt would benefit from skilled OT to increase his independence in basic self care to allow him to safely return to his home and to decrease caregiver burden. Discharge Recommendations Plan/Recommendations: Continue POC Treatment Plan/Plan of Care Patient would benefit from OT for education, treatment and training to promote independence in ADL's, mobility, safety and/or upper extremity function for ADL' s. Plan of Care: ADL Retraining, Functional Mobility, Group Exercise/Act as Ind ( education, exercise, activity tolerance, functional activities), UE Funct Exercise/Act, OTHER (energy conservation education as apporpriate) Treatment Duration: Apr 15, 2017 Frequency: At least 5 of 7 days/Wk (IRF) Estimated Hrs Per Day: 1.5 hours per day Agreement: Yes Rehab Potential: Good Time/GCodes Start Time: 12:50 Stop Time: 13:20 Total Time Billed (hr/min): 30 Billed Treatment Time visit, exercise 30 minutes AYE SORENSON OT Apr 05, 2017 14:19
--- NOTE | 2017-04-05 15:16 | Physical Therapy Daily Note ---
PT Daily Note-Current Subjective Pt sitting in recliner upon arrival. Pt agrees to PT. Mental Status Patient Orientation: Person, Place, Time, Situation Transfers Functional [place] Measure 0=Not Assessed/NA 4=Minimal Assistance 1=Total Assistance 5=Supervision or Setup 2=Maximal Assistance 6=Modified [place] 3=Moderate Assistance 7=Complete IndependenceIRFPAI Quality Coding Scale 6 Independent with activity with or without an assistive device 5 Patient requires set up or clean up by helper. Patient completes activity by themselves 4 Supervision or touching assist (CGA). [place] provide cues , steadying assist 3 The helper provides less than half the effort to complete the activity 2 The helper provides more than half the effort to complete the activity 1 Dependent. The helper does all the effort to complete an activity 7 Patient refused to complete or attempt activity 9 The patient did not perform the activity before the current illness or injury 88 Not attempted due to Medical conditions or safety concerns Scootin Rollin Supine to/from Sit: 6 Sit to/from Stand: 6 Sit to Lying (QC): 6 Sit to Stand (QC): 6 Weight Bearing Right Lower Extremity: Right Full Weight Bearing Left Lower Extremity: Left Full Weight Bearing Gait Training Does the Patient Walk?: Yes Distance (FIM): 3=150 ft Distance: 500' Walk 10 feet (QC): 6 Walk 50 ft with 2 Turns(QC): 6 Walk 150 ft (QC): 6 Gait Level of Assist: 6 Gait Assistive Device: FWW Pt walks with normalized gait pattern, no LOB. Wheelchair Training Does the Pt Use a Wheelchair?: No Treatments Pt transfers from recliner to standing using FWW at Mod I then ambulates in hallway using FWW at Mod I. Pt returns to room to rest in bed at end of tx with all needs met. Nurse is present to administer Antibiotics. Assessment Current Status: Good Progress Pt is walking, transferring and completing tasks independently and safely at this time. PT Short Term Goals Short Term Goals Time Frame: Apr 08, 2017 PT Recycling Crew Supervisor Goals [facility] Goals PT Recycling Crew Supervisor Goals Time Frame: Apr 22, 2017 Transfers (B,C,W/C) (FIM): 6 Sit to Lying (QC): 6 Lying-Sitting on Side/Bed(QC): 6 Sit to Stand (QC): 6 Rollin Roll Left to Right (QC): 6 Car Transfer (QC): 6 Gait (FIM): 6 Distance: 1500' Walk 10 feet (QC): 6 Walk 10ft-Uneven Surface(QC): 6 Walk 50ft with 2 Turns (QC): 6 Walk 150 ft (QC): 6 Gait Assistive Device: FWW Stairs (FIM): 6 # of Steps: 12 1 Step (curb) (QC): 6 4 Steps (QC): 6 12 Steps (QC): 6 PT Plan Problem List Problem List: Activity Tolerance, Gait Treatment/Plan Treatment Plan: Continue Plan of Care Treatment Plan: Bed Mobility, Education, Functional Activity Rudolph, Functional Strength, Group Therapy, Gait, Safety, Therapeutic Exercise, Transfers Treatment Duration: Apr 22, 2017 Frequency: At least 5 of 7 days/Wk (IRF) Estimated Hrs Per Day: 1.5 hours per day Patient and/or Family Agrees t: Yes Safety Risks/Education Patient Education: Transfer Techniques, Correct Positioning, Safety Issues Teaching Recipient: Patient Teaching Methods: Discussion Response to Teaching: Verbalize Understanding Time/GCodes Time In: 1400 Time Out: 1430 Total Billed Treatment 1,GT x2 (30m) CONNOR UMANZOR PTA Apr 05, 2017 15:16
[2017-04-05 18:59] VITALS: BP 122/72
[2017-04-05] MEDS: BACLOFEN 10 MG (LIORESAL) TAB PO PRN (21:04)
[2017-04-05] MEDS: FENOFIBRATE 134 MG (LOFIBRA) CAPSULE PO SCH (21:05)
[2017-04-06] MEDS: MEROPENEM 500 MG in NS (IVPB) 100 ML IV SCH ×3 (05:54→21:33)
[2017-04-06] MEDS ORDERED: LACTATED RINGERS 1,000 ML IV PRN (06:34)
[2017-04-06 06:39] VITALS: BP 128/76
[2017-04-06] MEDS ORDERED: FAMOTIDINE 20MG/2ML IV (PEPCID) IV ONE (06:45)
--- NOTE | 2017-04-06 07:12 | Progress Note-Pre Operative ---
Pre-Operative Progress Note H&P Reviewed The H&P was reviewed, patient examined and no changes noted. Date Seen by Provider: Apr 06, 2017 Time Seen by Provider: 07:12 Date H&P Reviewed: Apr 06, 2017 Time H&P Reviewed: 07:12 Pre-Operative Diagnosis: RT RENAL STONE BRONWYN MAZARIEGOS MD Apr 06, 2017 7:12 am
--- NOTE | 2017-04-06 07:41 | Progress Note-Post Operative ---
Post-Operative Progess Note Surgeon (s)/Associate Store Director (s) Surgeon BRONWYN MAZARIEGOS MD Associate Store Director: N/A Pre-Operative Diagnosis RT RENAL STONE Post-Operative Diagnosis SAME Procedure & Operative Findings Date of Procedure 04/06/17 Procedure Performed/Findings RT ESWL Anesthesia Type GENERAL Estimated Blood Loss Estimated blood loss (mL): N/A Specimens/Packing Specimens Removed N/A Packing: N/A BRONWYN MAZARIEGOS MD Apr 06, 2017 7:41 am
[2017-04-06] MEDS ORDERED: ONDANSETRON 4 MG/2 ML (SDV) Z0FRAN IV PRN (07:45)
[2017-04-06] MEDS ORDERED: HYDROcodone/APAP 5 MG/325 MG (LORTAB) TAB PO PRN (07:45)
[2017-04-06] MEDS: NYSTATIN CREAM (MYCOSTATIN) 30 GM TUBE TP SCH ×2 (08:04→13:57)
[2017-04-06] MEDS: LACTULOSE SYRUP 10GM/15ML (ENULOSE) 30ML UDC PO SCH ×2 (08:04→20:18)
[2017-04-06] MEDS ORDERED: MIDAZOLAM 2 MG/2 ML (VERSED) VIAL ONE (08:17)
[2017-04-06] MEDS ORDERED: LACTATED RINGERS 0 ML IV ONE (08:17)
[2017-04-06] MEDS ORDERED: LIDOCAINE PF 2% 5 ML (XYLOCAINE) VIAL ONE (08:17)
[2017-04-06] MEDS ORDERED: ONDANSETRON 4 MG/2 ML (SDV) Z0FRAN ONE (08:17)
[2017-04-06] MEDS ORDERED: fentaNYL INJECTION 100 MCG/2 ML AMP ONE (08:17)
[2017-04-06] MEDS ORDERED: ROCURONIUM 50 MG/5 ML (ZEMURON) VIAL IV ONE (08:17)
[2017-04-06] MEDS ORDERED: proPOfol 200 MG/20 ML (DIPRIVAN) VIAL IV ONE (08:17)
[2017-04-06] MEDS ORDERED: SEVOFLURANE (ULTANE) 15 ML INHAL SOLN ONE ×4 (08:18→09:36)
[2017-04-06] MEDS: LACTATED RINGERS 1,000 ML IV SCH ×3 (08:31→21:48)
[2017-04-06] MEDS ORDERED: FUROSEMIDE 40 MG/4 ML INJ (LASIX) ONE (08:47)
--- NOTE | 2017-04-06 09:22 | Physical Therapy Progress Note ---
Therapy Progress Note Pt is in surgery for procedure currently. PT will check on pt this afternoon to try tx then. CONNOR UMANZOR PTA Apr 06, 2017 09:22
--- NOTE | 2017-04-06 09:52 | Occ Therapy Progress Note ---
Therapy Progress Note Pt not seen by OT this morning. Off floor for surgical procedure. AYE SORENSON OT Apr 06, 2017 09:52
[2017-04-06] MEDS ORDERED: ONDANSETRON 4 MG/2 ML (SDV) Z0FRAN IVP PRN (10:00)
[2017-04-06] MEDS ORDERED: morphine INJ 10 MG/ML 1ML (SYR OR VIAL) IVP PRN (10:00)
[2017-04-06 10:51] VITALS: BP 112/65
--- NOTE | 2017-04-06 10:52 | Diagnostic Imaging Report ---
EXAMINATION: Supine view of the abdomen. INDICATION: Post lithotripsy. FINDINGS: There is a fragmented stone in the right renal pelvis with the largest fragment measuring 8 mm. There is a nephrostomy tube in place. No ureteric stone is identified. Scoliosis, convex to the left, and spine fusion hardware are seen. There is a small phlebolith on the left side of the pelvis. IMPRESSION: Stone fragments up to 8 mm are seen projecting over the right renal pelvis. Dictated by: Dictated on workstation # [id number]
--- NOTE | 2017-04-06 13:49 | Physical Therapy Daily Note ---
PT Daily Note-Current Subjective Pt laying in R sidelying position upon arrival. Pt agrees to short walk due to fatigued and groggy from surgery meds. Mental Status Patient Orientation: Person, Place, Time, Situation Transfers Functional [place] Measure 0=Not Assessed/NA 4=Minimal Assistance 1=Total Assistance 5=Supervision or Setup 2=Maximal Assistance 6=Modified [place] 3=Moderate Assistance 7=Complete IndependenceIRFPAI Quality Coding Scale 6 Independent with activity with or without an assistive device 5 Patient requires set up or clean up by helper. Patient completes activity by themselves 4 Supervision or touching assist (CGA). [place] provide cues , steadying assist 3 The helper provides less than half the effort to complete the activity 2 The helper provides more than half the effort to complete the activity 1 Dependent. The helper does all the effort to complete an activity 7 Patient refused to complete or attempt activity 9 The patient did not perform the activity before the current illness or injury 88 Not attempted due to Medical conditions or safety concerns Scootin Rollin Roll Left to Right (QC): 6 Supine to/from Sit: 6 Sit to/from Stand: 6 Sit to Stand (QC): 6 Weight Bearing Right Lower Extremity: Right Full Weight Bearing Left Lower Extremity: Left Full Weight Bearing Gait Training Does the Patient Walk?: Yes Distance (FIM): 3=150 ft Distance: 300' Walk 10 feet (QC): 5 Walk 50 ft with 2 Turns(QC): 5 Walk 150 ft (QC): 5 Gait Level of Assist: 5 Gait Persons Needed: 1 Gait Assistive Device: FWW Pt walks with normalized gait pattern although reports feeling groggy. Wheelchair Training Does the Pt Use a Wheelchair?: No Treatments Pt transfers from bed to standing using FWW at SBA. Pt ambulates in hallway using FWW at close SBA due to grogginess. Pt takes short rest break after walk and asks to go lay down due to fatigue. Pt returns to room and lays R sidelying in bed at SBA. Pt resting at end of tx with all needs met. Assessment Current Status: Good Progress Pt is making good progress despite procedure today making him groggy. PT Short Term Goals Short Term Goals Time Frame: Apr 08, 2017 PT Fpc Goals Fpc Goals PT Fpc Goals Time Frame: Apr 22, 2017 Transfers (B,C,W/C) (FIM): 6 Sit to Lying (QC): 6 Lying-Sitting on Side/Bed(QC): 6 Sit to Stand (QC): 6 Rollin Roll Left to Right (QC): 6 Car Transfer (QC): 6 Gait (FIM): 6 Distance: 1500' Walk 10 feet (QC): 6 Walk 10ft-Uneven Surface(QC): 6 Walk 50ft with 2 Turns (QC): 6 Walk 150 ft (QC): 6 Gait Assistive Device: FWW Stairs (FIM): 6 # of Steps: 12 1 Step (curb) (QC): 6 4 Steps (QC): 6 12 Steps (QC): 6 PT Plan Problem List Problem List: Activity Tolerance Treatment/Plan Treatment Plan: Continue Plan of Care Treatment Plan: Bed Mobility, Education, Functional Activity [place], Functional Strength, Group Therapy, Gait, Safety, Therapeutic Exercise, Transfers Treatment Duration: Apr 22, 2017 Frequency: At least 5 of 7 days/Wk (IRF) Estimated Hrs Per Day: 1.5 hours per day Patient and/or Family Agrees t: Yes Safety Risks/Education Patient Education: Gait Training, Correct Positioning, Safety Issues Time/GCodes Time In: 1315 Time Out: 1335 Total Billed Treatment Time: 20 Total Billed Treatment 1, GT (20m) CONNOR UMANZOR PTA Apr 06, 2017 13:49
--- NOTE | 2017-04-06 15:01 | Occupational Ther Daily Note ---
OT Current Status-Daily Note Subjective Pt in bed at beginning of tx. Agreed to therapy. No mention of pain but stated he felt "groggy" from anesthesia from earlier surgical procedure. Appearance Alert, cooperative. Mental Status/Objective Functional [place] Measure 0=Not Assessed/NA 4=Minimal Assistance 1=Total Assistance 5=Supervision or Setup 2=Maximal Assistance 6=Modified [place] 3=Moderate Assistance 7=Complete [place] ADL-Treatment Functional [place] Measure 0=Not Assessed/NA 4=Minimal Assistance 1=Total Assistance 5=Supervision or Setup 2=Maximal Assistance 6=Modified [place] 3=Moderate Assistance 7=Complete IndependenceIRFPAI Quality Coding Scale 6 Independent with activity with or without an assistive device 5 Patient requires set up or clean up by helper. Patient completes activity by themselves 4 Supervision or touching assist (CGA). [place] provide cues , steadying assist 3 The helper provides less than half the effort to complete the activity 2 The helper provides more than half the effort to complete the activity 1 Dependent. The helper does all the effort to complete an activity 7 Patient refused to complete or attempt activity 9 The patient did not perform the activity before the current illness or injury 88 Not attempted due to Medical conditions or safety concerns Toileting (FIM): 6 (Pt able to manage hygiene and clothing mod I. Tall toilet, grab bar, FWW) Toilet/Commode Transfer (FIM): 6 (Pt able to transfer on and off toilet Mod I. Tall toilet, grab bars, FWW. ) Other Treatment Pt walked to gym with FWW and SBA due to pt's surgery this day but no observed LOB. Pt used arm bike for 15 minutes at 20 chen with bilat UE for strengthening to improve transfers from lower seated positions. Pt stated he was still tired from the procedure this morning. Pt walked to room with FWW and SBA and transferred to EOB with SBA. Pt in bed with all needs met at end of tx. Education OT Patient Education: Progress toward Goal/Update tx plan, Safety issues Teaching Recipient: Patient Teaching Methods: Discussion Response to Teaching: Verbalize Understanding OT Short Term Goals Short Term Goals 1=Demonstrate adherence to instructed precautions during ADL tasks. 2=Patient will verbalize/demonstrate understanding of assistive devices/ modifications for ADL. 3=Patient will improve strength/tolerance for activity to enable patient to perform ADL's. OT Roll Edge Stitcher Hand Goals Half-Way Goals Time Frame: Apr 15, 2017 Eating (FIM): 7 Eating (QC): 6 Groomin Oral Hygiene (QC): 6 Bathing(FIM): 6 Shower/Bathe Self (QC): 6 Upper Body Dressing(FIM): 6 Upper Body Dressing (QC): 6 Lower Body Dressing(FIM): 6 Lower Body Dressing (QC): 6 On/Off Footwear (QC): 6 Toileting(FIM): 6 Toileting Hygiene (QC): 6 Toilet/Commode Transfer(FIM): 6 Toilet/Commode Transfer (QC): 6 Tub Transfer(FIM): 6 Shower Transfer(FIM): 6 Additional Goals: 2-Verbalize Understanding, 3-ImproveStrength/Rudolph 1=Demonstrate adherence to instructed precautions during ADL tasks. 2=Patient will verbalize/demonstrate understanding of assistive devices/ modifications for ADL. 3=Patient will improve strength/tolerance for activity to enable patient to perform ADL's. OT Education/Plan Problem List/Assessment Pt would benefit from skilled OT to increase his independence in basic self care to allow him to safely return to his home and to decrease caregiver burden. Discharge Recommendations Plan/Recommendations: Continue POC Treatment Plan/Plan of Care Patient would benefit from OT for education, treatment and training to promote independence in ADL's, mobility, safety and/or upper extremity function for ADL' s. Plan of Care: ADL Retraining, Functional Mobility, Group Exercise/Act as Ind ( education, exercise, activity tolerance, functional activities), UE Funct Exercise/Act, OTHER (energy conservation education as apporpriate) Treatment Duration: Apr 15, 2017 Frequency: At least 5 of 7 days/Wk (IRF) Estimated Hrs Per Day: 1.5 hours per day Agreement: Yes Rehab Potential: Good Time/GCodes Start Time: 13:55 Stop Time: 14:30 Total Time Billed (hr/min): 35 Billed Treatment Time visit, ADL 5 minutes, exercise 30 minutes AYE SORENSON OT Apr 06, 2017 15:01
--- NOTE | 2017-04-06 15:57 | OPERATIVE REPORT ---
DATE OF SERVICE: 04/06/2017 PREOPERATIVE DIAGNOSIS: Right renal stone. POSTOPERATIVE DIAGNOSIS: Right renal stone. OPERATION PERFORMED: Right ESWL. SURGEON: Josemanuel Mazariegos MD ANESTHESIA: General. COMPLICATIONS: None. PROCEDURE: With the patient supine on the ESWL table under satisfactory general anesthesia, the large right renal stone was localized. Shocks were delivered at a kV of 5. It took 1500 shocks or more to start fragmenting the stone, which seemed to be hard, being very round and is very smooth; however, the fragment starts getting more and we delivered 3000 shocks to the patient. We will give him 40 mg of Lasix at the end of the procedure. He tolerated the procedure and anesthesia well and was sent to recovery room in stable condition. PLAN: ESWL again next time the machine is here on 04/19/2017 or refer him to a [facility] for a percutaneous nephrolithotripsy versus an antegrade ureteral pyelo lithotripsy. This was explained to his family and later on to the patient himself. Job ID: [id number] DocumentID: [id number] Dictated Date: 04/06/2017 09:32:14 Direct Care Supervisor Date: 04/06/2017 13:49:25 Dictated By: JOSEMANUEL MAZARIEGOS MD
[2017-04-06 18:35] VITALS: BP 99/62
[2017-04-06] MEDS: FENOFIBRATE 134 MG (LOFIBRA) CAPSULE PO SCH (20:17)
[2017-04-06] MEDS: ACETAMINOPHEN 325 MG TABLET/CAPLET (TYLENOL) PO PRN (20:17)
[2017-04-06] MEDS: BACLOFEN 10 MG (LIORESAL) TAB PO PRN (20:17)
[2017-04-07] MEDS: LACTATED RINGERS 1,000 ML IV SCH (03:45)
[2017-04-07 06:15] VITALS: BP 144/79
[2017-04-07] MEDS: MEROPENEM 500 MG in NS (IVPB) 100 ML IV SCH (06:45)
--- NOTE | 2017-04-07 08:55 | Therapy Team Discharge Summary ---
Therapy Discharge Summary Discharge Recommendations Date of Discharge April 07, 2017 Therapy D/C Recommendations: Home w/ Family Support Occupational Therapy Pt was seen for skilled OT to increase his independence in basic self care to allow him to safely return to his home and to decrease caregiver burden after hospitalization for sepsis and UTI. On admission he was independent with eating , SBA for grooming, toileting/toilet transfer, bathing and upper body dressing, and mod assist for lower body dressing. By discharge he had progressed to independent or modified independent for all basic ADLs except setup for toileting, with help to empty urine bag. Equipment used included FWW, shower bench, grab bars, hand held shower and tall toilet. See tx plan for goals met. No continued OT is recommended. DC OT Decreased Activ Tolerance, Decreased UE Strength, Impaired I ADL's PT Penitentiary Goals Penitentiary Goals PT Research Dietitian Goals Time Frame: Apr 22, 2017 Transfers (B,C,W/C) (FIM): 6 Roll Left to Right (QC): 6 Sit to Lying (QC): 6 Lying-Sitting on Side/Bed(QC): 6 Sit to Stand (QC): 6 Car Transfer (QC): 6 Gait (FIM): 6 Distance: 1500' Walk 10 feet (QC): 6 Walk 10ft-Uneven Surface(QC): 6 Walk 50ft with 2 Turns (QC): 6 Walk 150 ft (QC): 6 Gait Assistive Device: FWW Stairs (FIM): 6 # of Steps: 12 1 Step (curb) (QC): 6 4 Steps (QC): 6 12 Steps (QC): 6 OT Research Dietitian Goals Research Dietitian Goals Time Frame: Apr 15, 2017 Eating (FIM): 7 (met) Eating (QC): 6 (met) Oral Hygiene (QC): 6 (met) Grooming(FIM): 6 (met) Bathing(FIM): 6 (met) Shower/Bathe Self (QC): 6 (met) Upper Body Dressing(FIM): 6 (met) Upper Body Dressing (QC): 6 (met) Lower Body Dressing(FIM): 6 (met) Lower Body Dressing (QC): 6 (met) On/Off Footwear (QC): 6 (met) Toileting(FIM): 6 (not met. help to empty urine bag) Toileting Hygiene (QC): 6 (not met) Toilet/Commode Transfer(FIM): 6 (met) Toilet/Commode Transfer (QC): 6 (met) Tub Transfer(FIM): 6 Shower Transfer(FIM): 6 (met) Additional Goals: 2-Verbalize Understanding, 3-ImproveStrength/Rudolph 1=Demonstrate adherence to instructed precautions during ADL tasks. 2=Patient will verbalize/demonstrate understanding of assistive devices/ modifications for ADL. 3=Patient will improve strength/tolerance for activity to enable patient to perform ADL's. AYE SORENSON OT Apr 07, 2017 08:55
[2017-04-07] MEDS: LACTULOSE SYRUP 10GM/15ML (ENULOSE) 30ML UDC PO SCH (09:12)
--- NOTE | 2017-04-07 11:10 | Progress Note-Urology ---
Progress Note-Urology Progress Notes/Assess & Plan Progress/Assessment & Plan RECOVERED WELL FROM OR. FINDINGS DISCUSSED WITH HIM AND SON. PLAN RE ESWL . OK TO DC WITH PCN TUBE WITH INSTRUCTIONS, AND SEE ME TUESDAY 04/17 WITH [facility] PRIOR TO IT Final Diagnosis RT RENAL STONE BRONWYN MAZARIEGOS MD Apr 07, 2017 11:10 am
--- NOTE | 2017-04-07 11:31 | Therapy Team Discharge Summary ---
Therapy Discharge Summary Discharge Recommendations Date of Discharge Therapy D/C Recommendations: Home w/ Family Support Physical Therapy Patient came to rehab with sepsis, UTI, and decubitus ulcer. Upon evaluation, patient performed bed mobility with SBA, transfers with CGA, car transfer with CGA, ambulated 1000' with a rolling walker with SBA, and went up and down 12 steps using 2 handrails with SBA. Patient has been performing bed mobility and transfer training, balance and endurance training, functional strengthening, stair training, gait training, and education. Patient has made good progress and has met all of his intermediate card tender goals except for the distance on his ambulation goal. Now, patient performs bed mobility with mod I, transfers with mod I, car transfer with mod I, ambulates 500'-1000' with a rolling walker with mod I (including 50' with at least 2 turns of 90 degrees and 10' over an uneven surface), and can go up and down 12 steps using 1 handrail with a reciprocal gait pattern. Patient is being discharged from this facility today and will be discharged from PT at this time. Occupational Therapy Decreased Activ Tolerance, Decreased UE Strength, Impaired I ADL's PT Auto Overhauler Goals Auto Overhauler Goals PT Care Home Goals Time Frame: Apr 22, 2017 Transfers (B,C,W/C) (FIM): 6 Roll Left to Right (QC): 6 Sit to Lying (QC): 6 Lying-Sitting on Side/Bed(QC): 6 Sit to Stand (QC): 6 Car Transfer (QC): 6 Gait (FIM): 6 Distance: 1500' Walk 10 feet (QC): 6 Walk 10ft-Uneven Surface(QC): 6 Walk 50ft with 2 Turns (QC): 6 Walk 150 ft (QC): 6 Gait Assistive Device: FWW Stairs (FIM): 6 # of Steps: 12 1 Step (curb) (QC): 6 4 Steps (QC): 6 12 Steps (QC): 6 OT Care Home Goals Auto Overhauler Goals Time Frame: Apr 15, 2017 Eating (FIM): 7 (met) Eating (QC): 6 (met) Oral Hygiene (QC): 6 (met) Grooming(FIM): 6 (met) Bathing(FIM): 6 (met) Shower/Bathe Self (QC): 6 (met) Upper Body Dressing(FIM): 6 (met) Upper Body Dressing (QC): 6 (met) Lower Body Dressing(FIM): 6 (met) Lower Body Dressing (QC): 6 (met) On/Off Footwear (QC): 6 (met) Toileting(FIM): 6 (not met. help to empty urine bag) Toileting Hygiene (QC): 6 (not met) Toilet/Commode Transfer(FIM): 6 (met) Toilet/Commode Transfer (QC): 6 (met) Tub Transfer(FIM): 6 Shower Transfer(FIM): 6 (met) Additional Goals: 2-Verbalize Understanding, 3-ImproveStrength/Rudolph 1=Demonstrate adherence to instructed precautions during ADL tasks. 2=Patient will verbalize/demonstrate understanding of assistive devices/ modifications for ADL. 3=Patient will improve strength/tolerance for activity to enable patient to perform ADL's. ABDULAZIZ MIRZA PT Apr 07, 2017 11:31
--- NOTE | 2017-04-07 15:19 | Progress Note-Hospitalist ---
Subjective HPI/CC On Admission Date Seen by Provider: Apr 07, 2017 Time Seen by Provider: 12:55 Subjective/Events-last exam Pt reports doing well. Plans to go home with who will help with adjustment to home. has nephrostomy tube in place. No concerns or questions. Was able to tell me date for follow up with Dr frank. Objective Exam Vital Signs Vital Sign - Last 12Hours 04/01/17 13:56 Temp 98.5 Pulse 72 Resp 20 B/P (MAP) 148/87 (107) Pulse Ox 96 O2 Delivery Room Air Capillary Refill : General Appearance: No Apparent Distress, WD/WN Respiratory: Lungs Clear, No Respiratory Distress Cardiovascular: Regular Rate, Rhythm, No Murmur Gastrointestinal: Non Tender, Soft Neurologic/Psychiatric: Alert, Oriented x3 Assessment/Plan Assessment and Plan Assess & Plan/Chief Complaint EBSL UTI Today is last day of merrem Underwent lithotripsy with Dr. Frank Has PCN tube in place and will maintain it until follow up with Dr Frank. NOHEMI REGALADO MD Apr 07, 2017 15:19
== END 2017-04-07 15:09 | disposition home or self-care (01) | DRG 872 ==
PROVIDERS: ADMIT Physical Medicine & Rehabilitation; ATTEND Physical Medicine & Rehabilitation
PROC: 0TF3XZZ Fragmentation in Right Kidney Pelvis, External Approach (ICD-10-PCS; principal; 2017-04-06 08:40)
DX: A41.51 Sepsis due to Escherichia coli [E. coli] (principal); A41.81 Sepsis due to Enterococcus; N30.00 Acute cystitis without hematuria; N20.0 Calculus of kidney; N17.9 Acute kidney failure, unspecified; I48.0 Paroxysmal atrial fibrillation; I12.9 Hypertensive chronic kidney disease with stage 1 through stage 4 chronic kidney disease, or unspecified chronic kidney disease; N18.9 Chronic kidney disease, unspecified; L89.151 Pressure ulcer of sacral region, stage 1; N40.1 Benign prostatic hyperplasia with lower urinary tract symptoms; R35.0 Frequency of micturition; N39.41 Urge incontinence; K21.9 Gastro-esophageal reflux disease without esophagitis; E78.00 Pure hypercholesterolemia, unspecified; E78.5 Hyperlipidemia, unspecified; K59.00 Constipation, unspecified; M54.9 Dorsalgia, unspecified; R60.0 Localized edema; Z85.828 Personal history of other malignant neoplasm of skin
CPT/HCPCS: 36415; 74000; 80053; 85025; 87081

== ENCOUNTER → 2017-04-18 | Outpatient (CLI) | payer MEDICARE ==
[~2017-04-18] MED LIST changes: +FUROSEMIDE 40 MG/4 ML INJ (LASIX) ONE; +HYDR-3874 PO; +KETOROLAC 30 MG/ML VIAL ONE; +NITR-68 PO; +ONDANSETRON 4 MG/2 ML (SDV) Z0FRAN ONE; +SEVOFLURANE (ULTANE) 15 ML INHAL SOLN ONE; +TAMS0.4C98 PO; +fentaNYL INJECTION 100 MCG/2 ML AMP ONE; +proPOfol 200 MG/20 ML (DIPRIVAN) VIAL IV ONE
--- NOTE | 2017-04-18 15:55 | Diagnostic Imaging Report ---
INDICATION: Status post ESWL. Ureteral calculus. COMPARISON: 04/06/2017. FINDINGS: Single supine radiographic view of the abdomen was obtained and again demonstrates radiopaque pigtail catheter projecting over the right renal fossa. Extraosseous calcifications are again identified projecting over the inferior pole of the right kidney. These may be on the basis of fragmented calculi. There is also linear extraosseous calcification seen more medially, which may be on the basis of small calculi within the upper ureter. Small bowel loops are nondistended. Moderate air and stool is noted scattered throughout the colon. IMPRESSION: 1. Right-sided nephrolithiasis and probable small calculi within the upper right ureter. 2. Indwelling right-sided percutaneous nephrostomy tube. 3. Moderate colonic air and stool. Please correlate for constipation. Dictated by: Dictated on workstation # [id number]
== END ==
LOC: RAD 13:10
PROVIDERS: ATTEND Urology
DX: N20.1 Calculus of ureter (principal); Z93.6 Other artificial openings of urinary tract status
CPT/HCPCS: 74000

== ENCOUNTER → 2017-04-18 | Outpatient (CLI) | payer MEDICARE ==
[~2017-04-18] MED LIST changes: -FUROSEMIDE 40 MG/4 ML INJ (LASIX) ONE; -KETOROLAC 30 MG/ML VIAL ONE; -ONDANSETRON 4 MG/2 ML (SDV) Z0FRAN ONE; -SEVOFLURANE (ULTANE) 15 ML INHAL SOLN ONE; -fentaNYL INJECTION 100 MCG/2 ML AMP ONE; -proPOfol 200 MG/20 ML (DIPRIVAN) VIAL IV ONE
== END ==
LOC: PREOP 05:42
PROVIDERS: ATTEND Urology
DX: Z01.818 Encounter for other preprocedural examination (principal); N20.0 Calculus of kidney; Z88.0 Allergy status to penicillin

== ENCOUNTER 2017-04-19 09:23 | Day surgery (SDC) | payer MEDICARE ==
[~2017-04-19] VITALS: Ht 172.7 cm; Wt 84.8 kg
[~2017-04-19 09:23] MED LIST changes: -HYDR-3874 PO; -NITR-68 PO; -TAMS0.4C98 PO
[2017-04-19 09:39] VITALS: BP 126/67
[2017-04-19] MEDS ORDERED: cefTRIAXone INJECTION 1,000 MG in NS (IVPB) 50 ML IV ONE (09:45)
--- NOTE | 2017-04-19 10:07 | Progress Note-Pre Operative ---
Pre-Operative Progress Note H&P Reviewed The H&P was reviewed, patient examined and no changes noted. Date Seen by Provider: Apr 19, 2017 Time Seen by Provider: 10:07 Date H&P Reviewed: Apr 19, 2017 Time H&P Reviewed: 10:07 Pre-Operative Diagnosis: RT RENAL STONE BRONWYN MAZARIEGOS MD Apr 19, 2017 10:07 am
[2017-04-19] MEDS ORDERED: LACTATED RINGERS 1,000 ML IV PRN (10:28)
--- NOTE | 2017-04-19 10:40 | Diagnostic Imaging Report ---
INDICATION: Nephrolithiasis. FINDINGS: Right nephrostomy tube remains in place. There are multiple residual stones in the right kidney. There are extensive postsurgical changes in the lumbar spine. The bowel gas pattern is nonspecific. IMPRESSION: Multiple residual stones in the right kidney. A right nephrostomy tube remains in place. Nonspecific bowel gas pattern. Dictated by: Dictated on workstation # [id number]
--- NOTE | 2017-04-19 10:50 | Progress Note-Post Operative ---
Post-Operative Progess Note Surgeon (s)/Parking Supervisor (s) Surgeon BRONWYN MAZARIEGOS MD Parking Supervisor: N/A Pre-Operative Diagnosis RT RENAL STONE Post-Operative Diagnosis SAME Procedure & Operative Findings Date of Procedure 04/19/17 Procedure Performed/Findings RT ESWL Anesthesia Type GENERAL Estimated Blood Loss Estimated blood loss (mL): N/A Specimens/Packing Specimens Removed N/A Packing: N/A BRONWYN MAZARIEGOS MD Apr 19, 2017 10:49 am
--- NOTE | 2017-04-19 10:51 | Discharge Inst-Urology ---
Discharge Inst-Urology Discharge Medications New, Converted, or Re-newed RX: RX on Chart Patient Instructions/Follow Up Plan Please make appointment to been seen in office Tuesday 05/09, KUB prior to it KUB on way home Post ESWL instructions Increase oral fluids for 48 hours and then as needed. Diet and Activity as tolerated. If questions or concerns contact your physician Or seek help at emergency department. BRONWYN MAZARIEGOS MD Apr 19, 2017 10:51 am
[2017-04-19 13:15] VITALS: BP 154/81
[2017-04-19] MEDS ORDERED: TAMS0.4C98 PO (13:32)
[2017-04-19] MEDS ORDERED: HYDR-3874 PO (13:32)
[2017-04-19] MEDS ORDERED: NITR-68 PO (13:32)
[2017-04-19 13:45] VITALS: BP 135/72
--- NOTE | 2017-04-19 14:19 | Diagnostic Imaging Report ---
EXAMINATION: Supine view of the abdomen. INDICATION: Lithotripsy for right-sided stones. FINDINGS: Multiple stone fragments are seen projecting over the right flank suggestive of stones in the right renal pelvis and calyces. A right nephrostomy tube is in place. No definite ureteric stone. Scoliosis in the lumbar spine with fusion hardware seen. Moderate amounts of fecal material in the colon and rectum are noted. IMPRESSION: Multiple stone fragments are seen around the right nephrostomy tube. Dictated by: Dictated on workstation # [id number]
--- NOTE | 2017-04-19 21:39 | OPERATIVE REPORT ---
DATE OF SERVICE: 04/19/2017 PREOPERATIVE DIAGNOSIS: Right renal stones. POSTOPERATIVE DIAGNOSIS: Right renal stones. OPERATION PERFORMED: Right ESWL. SURGEON: Josemaneul Mazariegos MD ANESTHESIA: General. COMPLICATIONS: None. PROCEDURE: Under satisfactory general anesthesia, the patient supine on the ESWL table, we localized each fragment separately. The largest fragment received 1500 shocks and seemed to fragment nicely. Then, we moved on a second fragment and delivered 500 and so on until 3000 shocks were delivered. The patient received 40 mg of Lasix and 30 mg of Toradol IV at the end of the procedure. He tolerated the procedure and anesthesia well and was sent to recovery room in stable condition. Job ID: [id number] DocumentID: [id number] Dictated Date: 04/19/2017 12:10:34 Upper Extremity Surgeon Date: 04/19/2017 20:51:17 Dictated By: JOSEMANUEL MAZARIEGOS MD
== END 2017-04-19 14:18 | disposition home or self-care (01) ==
LOC: SDC 09:23
PROVIDERS: ATTEND Urology
DX: N20.0 Calculus of kidney (principal); I10 Essential (primary) hypertension; K21.9 Gastro-esophageal reflux disease without esophagitis; K44.9 Diaphragmatic hernia without obstruction or gangrene; Z79.899 Other long term (current) drug therapy
CPT/HCPCS: 74000; 87081

== ENCOUNTER → 2017-05-09 | Outpatient (CLI) | payer MEDICARE ==
[~2017-05-09] MED LIST changes: +HYDR-3874 PO; +NITR-68 PO; +TAMS0.4C98 PO
--- NOTE | 2017-05-09 12:38 | Diagnostic Imaging Report ---
INDICATION: Right renal stone post ESWL. TECHNIQUE: Two supine views of the abdomen were obtained at 7:59 AM. CORRELATION STUDY: 04/19/2017. FINDINGS: The pigtail catheter over the right mid abdomen remains in place. There is a large amount of stool within the colon. There is a vertically oriented line of calcifications of various sizes within the right lower paraspinal region. The largest is noted superiorly measuring 8 mm. This has changed when compared to the prior examination. This appears to represent migration of the stones previously demonstrated over the right renal silhouette and pigtail catheter on prior imaging. The overall length of these stones in aggregate extends for approximately 5.5 cm. Extensive lumbar spinal fixation hardware is present. Advanced degenerative change of the bilateral hips with joint space narrowing. IMPRESSION: There appears to have been redistribution in positioning of the multiple stones, now likely located within the right ureter. There is an approximately 5.5 cm somewhat chain-like length of calcifications present, likely in the proximal to mid right ureter. Dictated by: Dictated on workstation # [id number]
== END ==
LOC: RAD 07:28
PROVIDERS: ATTEND Urology
DX: N20.0 Calculus of kidney (principal)
CPT/HCPCS: 74018

== ENCOUNTER → 2017-05-10 | Outpatient (CLI) | payer MEDICARE ==
[2017-05-10 15:06] LABS: BILIRUBIN,URINE NEGATIVE (NEGATIVE); CLARITY,URINE SLIGHTLY CLOUDY; COLOR,URINE YELLOW; GLUCOSE, URINE (UA) 2+ (NEGATIVE); KETONES,URINE NEGATIVE (NEGATIVE); LEUKOCYTE ESTERASE ,URINE 3+ (NEGATIVE); NITRITE,URINE POSITIVE (NEGATIVE); PH,URINE 6 (5-9); PROTEIN,URINE 3+ (NEGATIVE); UROBILINOGEN,URINE NORMAL (NORMAL)
[2017-05-10 15:08] LABS: BILIRUBIN,URINE NEGATIVE (NEGATIVE); CLARITY,URINE VERY CLOUDY; COLOR,URINE YELLOW; GLUCOSE, URINE (UA) 2+ (NEGATIVE); KETONES,URINE NEGATIVE (NEGATIVE); LEUKOCYTE ESTERASE ,URINE 3+ (NEGATIVE); NITRITE,URINE POSITIVE (NEGATIVE); PH,URINE 6 (5-9); PROTEIN,URINE 3+ (NEGATIVE); UROBILINOGEN,URINE NORMAL (NORMAL)
[2017-05-10 15:21] LABS: BACTERIA,URINE 3+ /HPF; WBC,URINE TNTC /HPF
[2017-05-10 15:22] LABS: BACTERIA,URINE LARGE /HPF; WBC,URINE TNTC /HPF
== END ==
LOC: LAB 14:09
PROVIDERS: ATTEND Urology
DX: N39.0 Urinary tract infection, site not specified (principal)
CPT/HCPCS: 81000; 87077; 87088

== ENCOUNTER 2017-05-16 09:21 | Emergency (ER) | payer MEDICARE ==
[~2017-05-16] VITALS: Ht 172.7 cm; Wt 79.4 kg
--- OUTSIDE RECORDS SUMMARY | 2017-05-16 09:26 | XMS REPORT | Clinical Summary ---
Author Author [facility] Organization [facility] Address Unknown Phone Unavailable Care Team Providers Care Auditor Supervisor Name Role Phone PCP Unavailable Source Comments Some departments are not documenting in the electronic medical record. If you do not see the information that you expected, contact Release of Information in the Health Information Management department at [phone] for further assistance in locating additional records.[facility] Allergies Active Allergy Reactions Severity Noted Date Comments Iodinated Contrast- Oral UNKNOWN Low 05/11/2017 And Iv Dye Penicillins UNKNOWN Low 05/11/2017 Current Medications Prescription Sig. Disp. Refills Start End Date Status Date baclofen (LIORESAL) 10 mg 04/13/20 Active tablet 17 ciprofloxacin (CIPRO) 500 05/10/19 Active mg tablet 18 clotrimazole-betamethason 05/10/19 Active e (LOTRISONE) 1-0.05 % 18 topical cream fenofibrate(+) (TRIGLIDE) 04/29/20 Active 160 mg tablet 17 fluconazole (DIFLUCAN) 05/10/19 Active 150 mg tablet 18 HYDROcodone/acetaminophen 04/19/20 Active (NORCO) 5/325 mg tablet 17 hydrocortisone(+) 2.5 % 03/10/20 Active topical lotion 17 traMADol (ULTRAM) 50 mg 03/14/20 Active tablet 17 tamsulosin (FLOMAX) 0.4 04/19/20 Active mg capsule 17 trimethoprim/sulfamethoxa 05/10/19 Active zole (BACTRIM DS) 160/800 18 mg tablet metoprolol XL (TOPROL XL) 02/17/20 Active 25 mg extended release 17 tablet nitrofurantoin 04/19/20 Active macrocrystal 17 (MACRODANTIN) 100 mg capsule nitrofurantoin Take 1 capsule by mouth 42 capsule 0 05/13/19 Active monohyd/m-cryst every 12 hours for 21 18 18 (MACROBID) 100 mg capsule days. Take with food. Active Problems Problem Noted Date Ureteral stone 05/12/2017 Overview: Added automatically from request for surgery [id number] Nephrolithiasis 05/11/2017 Encounters Date Type Specialty Care Team Description 05/13/2017 Telephone Urology Etseban Stovall MD Results 05/13/2017 Orders Only Urology Esteban Stovall MD 05/12/2017 Prep for Case Urology Esteban Stovall MD 05/11/2017 Hospital Radiology Esteban Stovall MD Arrived Encounter 05/11/2017 Hospital Lab Esteban Stovall MD Calculus of kidney Encounter 05/11/2017 Office Visit Urology Esteban Stovall MD Nephrolithiasis 05/11/2017 Procedure Pass Radiology 05/11/2017 Orders Only Radiology Jese Tam MD from Last 3 Months Family History Medical History Relation Name Comments Heart Disease Father Testicular Cancer Father Cancer Maternal Grandfather Stroke Maternal Grandmother Cancer Paternal Grandfather Relation Name Status Comments Father Maternal Grandfather Maternal Grandmother Paternal Grandfather Social History Tobacco Use Types Packs/Day Years Used Date Never Smoker Smokeless Tobacco: Never Used Alcohol Use Drinks/Week oz/Week Comments No Sex Assigned at Date Recorded Not on file Last Filed Vital Signs Vital Sign Reading Time Taken Blood Pressure 122/54 05/11/2017 10:21 AM [facility] Pulse 71 05/11/2017 10:21 AM [facility] Temperature 36.4 C (97.5 F) 05/11/2017 10:58 AM [facility] Respiratory Rate - - Oxygen Saturation - - Inhaled Oxygen - - Concentration Weight 82.1 kg (181 lb) 05/11/2017 10:21 AM [facility] Height - - Body Mass Index - - Plan of Treatment Date Type Specialty Care Team Description 06/03/2017 [facility] Esteban Stovall MD Ureteral stone Encounter [address] [place] [address] [phone] 06/03/2017 Procedure Pass Health Maintenance Due Date Last Done Comments PHYSICAL (COMPREHENSIVE) 02/01/1939 EXAM PERTUSSIS VACCINE 02/01/1943 TETANUS VACCINE 02/01/1949 SHINGLES VACCINE 1992 PREVNAR/PNEUMOVAX (#1) 02/01/1997 INFLUENZA VACCINE 11/30/2016 Results * CT ABD/PELV WO CONTRAST (05/11/2017 2:35 PM) Specimen Performing Laboratory [facility] RESULTS Impressions 1.Tiny nonobstructing left renal calculi. 2.Right nephrostomy tube in place with three small right renal calculi. Approved by Tyler Schneider M.D. on 05/11/2017 3:38 PM By my electronic signature, I attest that I have personally reviewed the images for this examination and formulated the interpretations and opinions expressed in this report Finalized by Omari Villarreal M.D. on 05/11/2017 4:22 PM. Dictated by Tyler Schneider M.D. on 05/11/2017 2:[address] ABDOMEN AND PELVIS Clinical Indication:Male, 87 years old. Evaluate nephrolithiasis. Technique: Multiple contiguous axial CT images were obtained through the abdomen and pelvis without IV contrast. Post processing coronal and sagittal reconstruction images were made from the axial images. IV contrast: None Bowel contrast:None Comparison: None FINDINGS: Limited evaluation without the use of IV contrast which includes the viscera and vasculature. Lower Thorax: The heart is normal in size. Coronary artery calcification is present. Calcified granulomas in the bilateral lung bases. Mild fibrosis in the bilateral lung bases. Liver and Biliary system: Unremarkable. Spleen: Unremarkable. Adrenal Glands and Kidneys: Unremarkable adrenal glands. There are 2 tiny nonobstructing left renal calculi. Right percutaneous nephrostomy tube. There is a 6 mm nonobstructing right lower pole tortuous. There are 2 small calculi adjacent to the pigtail catheter, the largest of these measures 4 mm. Pancreas and Retroperitoneum: Unremarkable. Aorta and Major Vessels: Abdominal aorta and iliac arteries are normal in caliber with moderate calcified plaque. Bowel, Mesentery and Peritoneal space: Unremarkable. Pelvis: Mild bladder wall thickening is noted. Mild prostate gland enlargement with TURP defect. No pelvic lymphadenopathy. Abdominal wall and Osseous Structures: Discectomy and lateral fixation at L2-L3 and L3-L4. Procedure Note Interface, Radiant Results - 05/11/2017 4:25 [address] [facility] ABDOMEN AND PELVIS Clinical Indication: Male, 87 years old. Evaluate nephrolithiasis. Technique: Multiple contiguous axial CT images were obtained through the abdomen and pelvis without IV contrast. Post processing coronal and sagittal reconstruction images were made from the axial images. IV contrast: None Bowel contrast: None Comparison: None FINDINGS: Limited evaluation without the use of IV contrast which includes the viscera and vasculature. Lower Thorax: The heart is normal in size. Coronary artery calcification is present. Calcified granulomas in the bilateral lung bases. Mild fibrosis in the bilateral lung bases. Liver and Biliary system: Unremarkable. Spleen: Unremarkable. Adrenal Glands and Kidneys: Unremarkable adrenal glands. There are 2 tiny nonobstructing left renal calculi. Right percutaneous nephrostomy tube. There is a 6 mm nonobstructing right lower pole tortuous. There are 2 small calculi adjacent to the pigtail catheter, the largest of these measures 4 mm. Pancreas and Retroperitoneum: Unremarkable. Aorta and Major Vessels: Abdominal aorta and iliac arteries are normal in caliber with moderate calcified plaque. Bowel, Mesentery and Peritoneal space: Unremarkable. Pelvis: Mild bladder wall thickening is noted. Mild prostate gland enlargement with TURP defect. No pelvic lymphadenopathy. Abdominal wall and Osseous Structures: Discectomy and lateral fixation at L2-L3 and L3-L4. IMPRESSION 1. Tiny nonobstructing left renal calculi. 2. Right nephrostomy tube in place with three small right renal calculi. Approved by Tyler Schneider M.D. on 05/11/2017 3:38 PM By my electronic signature, I attest that I have personally reviewed the images for this examination and formulated the interpretations and opinions expressed in this report Finalized by Omari Villarreal M.D. on 05/11/2017 4:22 PM. Dictated by Tyler Schneider M.D. on 05/11/2017 2:39 PM. * CBC (05/11/2017 11:46 AM) Component Value Ref Range White Blood Cells 9.6 4.5 - 11.0 K/UL RBC 3.42 (L) 4.4 - 5.5 M/UL Hemoglobin 10.6 (L) 13.5 - 16.5 GM/DL Hematocrit 32.7 (L) 40 - 50 % MCV 95.7 80 - 100 FL MCH 31.0 26 - 34 PG MCHC 32.4 32.0 - 36.0 G/DL RDW 15.8 (H) 11 - 15 % Platelet Count 230 150 - 400 K/UL MPV 8.8 7 - 11 FL Specimen Performing Laboratory [facility] [address] [place] [address] * BASIC METABOLIC PANEL (05/11/2017 11:46 AM) Component Value Ref Range Sodium 139 137 - 147 MMOL/L Potassium 4.7 3.5 - 5.1 MMOL/L Chloride 106 98 - 110 MMOL/L CO2 25 21 - 30 MMOL/L Anion Gap 8 3 - 12 Glucose 115 (H) 70 - 100 MG/DL Blood Urea Nitrogen 41 (H) 7 - 25 MG/DL Creatinine 2.01 (H) 0.4 - 1.24 MG/DL Calcium 9.7 8.5 - 10.6 MG/DL eGFR Non 32 (L) >60 mL/min Comment: The eGFR is not validated for use in drug dosing adjustments. Continue to use estimated creatinine clearance per dosing reference text. Please contact the Clinical Pharmacist for questions. eGFR 38 (L) >60 mL/min Comment: The eGFR is not validated for use in drug dosing adjustments. Continue to use estimated creatinine clearance per dosing reference text. Please contact the Clinical Pharmacist for questions. Specimen Performing Laboratory [facility] [address] [place] [id number] * URINALYSIS, MICROSCOPIC (05/11/2017 11:28 AM) Only the most recent of 2 results within the time period is included. Component Value Ref Range WBCs,UA PACKED 0 - 2 /HPF RBCs,UA 2-10 0 - 3 /HPF MucousUA TRACE Bacteria,UA FEW (A) NEG-NEG WBC Clumps PRESENT Specimen Performing Laboratory [facility] [address] [place] [address] * URINALYSIS DIPSTICK (05/11/2017 11:28 AM) Only the most recent of 2 results within the time period is included. Component Value Ref Range Color,UA YELLOW Turbidity,UA 1+ (A) CLEAR-CLEAR Specific Mason-Urine 1.013 1.003 - 1.035 pH,UA 6.0 5.0 - 8.0 Protein,UA 1+ (A) NEG-NEG Glucose,UA NEG NEG-NEG Ketones,UA NEG NEG-NEG Bilirubin,UA NEG NEG-NEG Blood,UA NEG NEG-NEG Urobilinogen,UA NORMAL NORM-NORMAL Nitrite,UA NEG NEG-NEG Leukocytes,UA 3+ (A) NEG-NEG Urine Ascorbic Acid, UA POS (A) NEG-NEG Comment: Ascorbic acid is found in various food supplies and dietary supplements, and is reported to cause strong interference with Macroscopic Urinalysis testing for glucose, blood and nitrite, and can result in a false negative result. Specimen Performing Laboratory [facility] [address] [place] [address] * CULTURE-URINE W/SENSITIVITY (05/11/2017 11:28 AM) Only the most recent of 2 results within the time period is included. Component Value Ref Range Battery Name URINE CULTURE Specimen Description URINE, CLEAN CATCH Special Requests NONE Culture >100,000 organisms/ml ESCHERICHIA COLI, ESBL POSITIVE (A) Report Status FINAL 05/14/2017 Organism ID >100,000 organisms/ml ESCHERICHIA COLI, ESBL POSITIVE Specimen Performing Laboratory Urine - Urine,Clean Catch [facility] [address] [place] [address] Organism Antibiotic Method Susceptibility >100,000 organisms/ml Ampicillin EDY (MCG/ML) >16 RESISTANT: Resistant escherichia coli, esbl INTERPRETATION positive >100,000 organisms/ml Amoxicil/Clav Acid EDY (MCG/ML) 8/4 RESISTANT: Resistant escherichia coli, esbl INTERPRETATION positive >100,000 organisms/ml Cefazolin EDY (MCG/ML) >16 RESISTANT: Resistant escherichia coli, esbl INTERPRETATION positive >100,000 organisms/ml Levofloxacin EDY (MCG/ML) >4 RESISTANT: Resistant escherichia coli, esbl INTERPRETATION positive >100,000 organisms/ml Nitrofurantoin EDY (MCG/ML) <=16 SUSCEPTIBLE: escherichia coli, esbl INTERPRETATION Susceptible positive >100,000 organisms/ml Gentamicin EDY (MCG/ML) <=2 SUSCEPTIBLE: escherichia coli, esbl INTERPRETATION Susceptible positive >100,000 organisms/ml Trimethsulfa EDY (MCG/ML) >2/38 RESISTANT: escherichia coli, esbl INTERPRETATION Resistant positive >100,000 organisms/ml Piperacil/Tazobactam EDY (MCG/ML) <=2/4 SUSCEPTIBLE: escherichia coli, esbl INTERPRETATION Susceptible positive >100,000 organisms/ml Tetracycline EDY (MCG/ML) >8 RESISTANT: Resistant escherichia coli, esbl INTERPRETATION positive >100,000 organisms/ml Cefepime EDY (MCG/ML) 8 RESISTANT: Resistant escherichia coli, esbl INTERPRETATION positive >100,000 organisms/ml Ertapenem EDY (MCG/ML) <=0.25 SUSCEPTIBLE: escherichia coli, esbl INTERPRETATION Susceptible positive >100,000 organisms/ml Ceftriaxone EDY (MCG/ML) >32 RESISTANT: Resistant escherichia coli, esbl INTERPRETATION positive >100,000 organisms/ml Method EDY (MCG/ML) EDY (MCG/ML) escherichia coli, esbl INTERPRETATION INTERPRETATION positive from Last 3 Months
--- OUTSIDE RECORDS SUMMARY | 2017-05-16 09:26 | XMS REPORT | Encounter Summary ---
Author Author [facility] Address Unknown Phone Unavailable Care Team Providers Care Hopper Operator Name Role Phone PCP Unavailable Encounter Details Date Type Department Care Team Description 02/18/2017 [facility] MULTIPLE TESTS Link, Onbase Scan [place], [place] Social History Tobacco Use Types Packs/Day Years Used Date Never Smoker Smokeless Tobacco: Never Used Alcohol Use Drinks/Week oz/Week Comments Yes slight usage Sex Assigned at Date Recorded Not on file as of this encounter Plan of Treatment Date Type Specialty Care Team Description 06/08/2017 Office Visit Neurology Lance Richards MD [address] [place] [address] 02/09/2018 Office Visit Urology Noreen Taylor, MANAGER BACKGROUND [address] [place] [address] as of this encounter Visit Diagnoses Not on filein this encounter
--- OUTSIDE RECORDS SUMMARY | 2017-05-16 09:26 | XMS REPORT | Clinical Summary ---
Author Author [facility] Address Unknown Phone Unavailable Support Name Relationship Address Phone , Sandi Byrne [place] [address] [address] Allergies Active Allergy Reactions Severity Noted Date [...] Description 02/18/2017 [facility], [facility] Scan from Last 3 Months Immunizations Name Dates Previously Given Next Due Herpes 07/28/2012 Zoster-Live(Zostavax) INFLUENZA IIV3 HD 02/18/2016 (Adults=>65 y/o-FLUZONE HD) [...] Description 06/08/2017 Office Visit Lance Richards MD [address] [place] [address] 02/09/2018 Office Visit Noreen Taylor, VINE PRUNER [address] [place] [address] Health Maintenance Due Date Last Done Comments DTaP,Tdap,and Td Vaccines 02/05/1949 (1 - Tdap) Annual Wellness Visit 12/06/1997 Pneumo-Adult (2 of 2 - 08/10/2013 08/10/2012 PCV13) Influenza Vaccine (#1) 2016 02/18/2016, 01/11/2015, 02/08/2013 Zoster Vaccine Completed 07/28/2012 Results Not on filefrom Last 3 Months
--- OUTSIDE RECORDS SUMMARY | 2017-05-16 09:26 | XMS REPORT | Continuity of Care Document ---
Author Author [facility] Address Unknown Phone Unavailable Care Team Providers Care Towel Stretcher Name Role Phone [employer] Unavailable Unavailable Problems Medications Allergies, Adverse Reactions, Alerts Immunizations Results Vital Signs Encounters Location Location Details Encounter Type Encounter Number Reason For Visit Attending Provider ADM Date DC Date Status Source OUTPATIENT [id number] DIOGENES WARNER 05/11/2017 05/11/2017 Active [facility] O DIOGENES WARNER Active [facility] Procedures Plan of Care Social History Assessment and Plan Family History Advance Directives Functional Status
--- OUTSIDE RECORDS SUMMARY | 2017-05-16 09:27 | XMS REPORT | Encounter Summary ---
Author Author [facility] Organization [facility] Address Unknown Phone Unavailable Care Team Providers Care Monitor Technician Name Role Phone PCP Unavailable Encounter Details Date Type Department Care Team Description 06/03/2017 Hospital Main Operating Room Esteban Stovall MD Ureteral stone Encounter [address] [facility] [address] [place] [address] [place] [address] [phone] Social History Tobacco Use Types Packs/Day Years Used Date Never Smoker Smokeless Tobacco: Never Used Alcohol Use Drinks/Week oz/Week Comments No Sex Assigned at Date Recorded Not on file as of this encounter Plan of Treatment Date Type Specialty Care Team Description 06/03/2017 [facility] Esteban Stovall MD Ureteral stone Encounter [address] [place] [address] [phone] 06/03/2017 Procedure Pass as of this encounter Visit Diagnoses Diagnosis Ureteral stone Calculus of ureter in this encounter Admitting Diagnoses Diagnosis Ureteral stone Calculus of ureter in this encounter
--- OUTSIDE RECORDS SUMMARY | 2017-05-16 09:27 | XMS REPORT | Encounter Summary ---
Author Author [facility] Organization [facility] Address Unknown Phone Unavailable Care Team Providers Care Cotton Grader Name Role Phone PCP Unavailable Reason for Visit * Reason Comments Results Encounter Details Date Type Department Care Team Description 05/13/2017 Telephone [facility] Esteban Stovall MD Results Physicians - Urology [address] [facility] [address] [place] [address] [address] [email or web address] [facility] [phone] [place] [address] Social History Tobacco Use Types Packs/Day Years Used Date Never Smoker Smokeless Tobacco: Never Used Alcohol Use Drinks/Week oz/Week Comments No Sex Assigned at Date Recorded Not on file as of this encounter Miscellaneous Notes * Telephone Encounter - Shaista Yeboah LPN - 05/13/2017 9:55 AM FRETTED INSTRUMENT REPAIRER Called pharmacy and called order. Pt notified. * Telephone Encounter - Shaista Yeboah LPN - 05/13/2017 9:55 AM FRETTED INSTRUMENT REPAIRER ----- Message from Esteban Stovall MD sent at 05/13/2017 9:40 AM FRETTED INSTRUMENT REPAIRER ----- He is going to see Dr. Frank today. No need to make other changes at this time. ----- Message ----- From: Shaista Yeboah LPN Sent: 05/13/2017 8:26 AM To: Esteban Stovall MD Pt is also taking cipro and batrim. Do you want him to stop these and start Macrobid? in this encounter Plan of Treatment Date Type Specialty Care Team Description 06/03/2017 Hospital Esteban Stovall MD Ureteral stone Encounter [address] [place] [address] 06/03/2017 Procedure Pass as of this encounter Visit Diagnoses Not on filein this encounter
--- OUTSIDE RECORDS SUMMARY | 2017-05-16 09:27 | XMS REPORT | Encounter Summary ---
Author Author [facility] Organization [facility] Address Unknown Phone Unavailable Care Team Providers Care Third Miller Name Role Phone PCP Unavailable Reason for Referral * Radiology Services Status Reason Specialty Diagnoses / Referred By Referred To Procedures Contact Contact No Auth Needed Radiology Diagnoses Esteban Stovall MD [address] Nephrolithiasis [address] [place] [address] [place] [address] Phone: CONTRAST [phone] Reason for Visit * Reason Comments Other Encounter Details Date Type Department Care Team Description 05/11/2017 Office Visit [facility] Esteban Stovall MD Nephrolithiasis Physicians - Urology [address] [place] [address] [address] [facility] [phone] [place] [address] Social History Tobacco Use Types Packs/Day Years Used Date Never Smoker Smokeless Tobacco: Never Used Alcohol Use Drinks/Week oz/Week Comments No Sex Assigned at Date Recorded Not on file as of this encounter Last Filed Vital Signs Vital Sign Reading Time Taken Blood Pressure 122/54 05/11/2017 10:21 AM METAL WEATHER STRIPPER Pulse 71 05/11/2017 10:21 AM METAL WEATHER STRIPPER Temperature 36.4 C (97.5 F) 05/11/2017 10:58 AM METAL WEATHER STRIPPER Respiratory Rate - - Oxygen Saturation - - Inhaled Oxygen - - Concentration Weight 82.1 kg (181 lb) 05/11/2017 10:21 AM METAL WEATHER STRIPPER Height - - Body Mass Index - - in this encounter Progress Notes * Esteban Stovall MD - 05/11/2017 10:00 AM METAL WEATHER STRIPPER Formatting of this note may be different from the original. Date of Service: 05/11/2017 Subjective: Tank Byrne is a 87 y.o. male. History of Present Illness Tank Byrne is a 87 y.o. male with a past history of BPH and prostatitis followed by Dr Frank. Presented in March at [facility] in [place], [place]. Found to have to have a right obstructing renal pelvis stone by report 2 cm in size. Had sepsis at that time, and had right PCN placed. Then underwent extracorporeal shockwave lithotripsy first on April 06 followed by a repeat shockwave lithotripsy on April 19. 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 Today, he notes that for the past 48 hours has had increased cloudy urine in the nephrostomy and per urethra. Was started on Cipro yesterday, and has had two doses. Notes that urine in nephrostomy bag has cleared a bit. Notes a weak stream, but feels that he empties. Increased urgency, frequency. + hematuria. Denies f/c/s. No n/v. Tolerating PO at home. Is fatigued. BM ok. Has urine culture from 05/10 pending at outside hospital. Has some irritation from NT at exit site. Past Medical History: Diagnosis Date Arthritis Dyslipidemia Heart disease Kidney stones Urethral stricture Urinary tract infection Past Surgical History: Procedure Laterality Date BACK SURGERY BLADDER SURGERY HAND SURGERY HX APPENDECTOMY HX TONSILLECTOMY KIDNEY STONE SURGERY ROTATOR CUFF REPAIR SHOULDER SURGERY Family History Problem Relation Age of Onset Heart Disease Father Testicular Cancer Father Stroke Maternal Grandmother Cancer Maternal Grandfather Cancer Paternal Grandfather Social History Social History Marital status: Spouse name: N/A Number of children: N/A Years of education: N/A Occupational History Not on file. Social History Main Topics Smoking status: Never Smoker Smokeless tobacco: Never Used Alcohol use No Drug use: No Sexual activity: No Other Topics Concern Not on file Social History Narrative No narrative on file Allergies Allergen Reactions Iodinated Contrast- Oral And Iv Dye UNKNOWN Penicillins UNKNOWN Review of Systems Constitutional: Positive for activity change, chills and fatigue. Negative for appetite change, diaphoresis, fever and unexpected weight change. HENT: Negative for congestion, hearing loss, mouth sores and sinus pressure. Eyes: Negative for visual disturbance. Respiratory: Negative for apnea, cough, chest tightness and shortness of breath. Cardiovascular: Negative for chest pain, palpitations and leg swelling. Gastrointestinal: Negative for abdominal pain, blood in stool, constipation, diarrhea, nausea, rectal pain and vomiting. Genitourinary: Positive for difficulty urinating, discharge, dysuria, enuresis, flank pain, frequency, hematuria, penile pain, penile swelling and scrotal swelling. Negative for decreased urine volume, genital sores, testicular pain and urgency. Musculoskeletal: Positive for back pain. Negative for arthralgias and gait problem. Skin: Negative for rash and wound. Neurological: Negative for dizziness, tremors, syncope, weakness, light- headedness, numbness and headaches. Hematological: Negative for adenopathy. Does not bruise/bleed easily. Psychiatric/Behavioral: Negative for decreased concentration and dysphoric mood. The patient is not nervous/anxious. Objective: baclofen (LIORESAL) 10 mg tablet ciprofloxacin (CIPRO) 500 mg tablet clotrimazole-betamethasone (LOTRISONE) 1-0.05 % topical cream fenofibrate(+) (TRIGLIDE) 160 mg tablet fluconazole (DIFLUCAN) 150 mg tablet HYDROcodone/acetaminophen (NORCO) 5/325 mg tablet hydrocortisone(+) 2.5 % topical lotion metoprolol XL (TOPROL XL) 25 mg extended release tablet nitrofurantoin macrocrystal (MACRODANTIN) 100 mg capsule tamsulosin (FLOMAX) 0.4 mg capsule traMADol (ULTRAM) 50 mg tablet trimethoprim/sulfamethoxazole (BACTRIM DS) 160/800 mg tablet Vitals: 05/11/17 1021 05/11/17 1058 BP: 122/54 Pulse: 71 Temp: 36.4 C (97.5 F) TempSrc: Oral Weight: 82.1 kg (181 lb) Physical Exam Constitutional: He is oriented to person, place, and time. He appears well- developed and well-nourished. HENT: Head: Normocephalic and atraumatic. Eyes: Pupils are equal, round, and reactive to light. Cardiovascular: Normal rate. Pulmonary/Chest: Effort normal. Abdominal: Soft. He exhibits no distension. There is no tenderness. Right NT site c/d/i, urine in bag clear yellow. Genitourinary: Penis normal. Genitourinary Comments: uncircumcised phallus with orthotopic meatus without lesions. Scrotal testicles palpable bilaterally. Symmetric without masses or swelling. Vas palpable bilaterally. No inguinal hernia bilaterally. Musculoskeletal: Normal range of motion. He exhibits no edema or tenderness. Neurological: He is alert and oriented to person, place, and time. Skin: Skin is warm and dry. Psychiatric: He has a normal mood and affect. His behavior is normal. Vitals reviewed. CBC w/Diff Lab Results Component Value Date/Time WBC 9.6 05/11/2017 11:46 AM RBC 3.42 (L) 05/11/2017 11:46 AM HGB 10.6 (L) 05/11/2017 11:46 AM HCT 32.7 (L) 05/11/2017 11:46 AM MCV 95.7 05/11/2017 11:46 AM MCH 31.0 05/11/2017 11:46 AM MCHC 32.4 05/11/2017 11:46 AM RDW 15.8 (H) 05/11/2017 11:46 AM PLTCT 230 05/11/2017 11:46 AM MPV 8.8 05/11/2017 11:46 AM No results found for: NEUT, ANC, LYMA, ALC, DORETHA, AMC, EOSA, AEC, BASA, ABC Basic Metabolic Profile Lab Results Component Value Date/Time NA 139 05/11/2017 11:46 AM K 4.7 05/11/2017 11:46 AM CA 9.7 05/11/2017 11:46 AM CL 106 05/11/2017 11:46 AM CO2 25 05/11/2017 11:46 AM GAP 8 05/11/2017 11:46 AM Lab Results Component Value Date/Time BUN 41 (H) 05/11/2017 11:46 AM CR 2.01 (H) 05/11/2017 11:46 AM GLU 115 (H) 05/11/2017 11:46 AM Assessment and Plan: 87 y.o. male with steinstrasse after recent PCNL by Dr. Frank. Outside imaging is all KUB plain films. He is concerned about recent increase in cloudy urine in nephrostomy tube and per urethra. Currently on Cipro with some improvement in urine quality. Outside cultures pending. His anxiety is high due to history of sepsis. Today is afebrile, normocardic, and normotensive in the office. We sent for CBC, BMP. Has no leukocytosis. Creatinine elevated at 2, but I do not know his baseline. Potassium is normal. At this time, I recommended he continue Cipro and that we await culture results. He was given strict return precautions should he develop fevers, chills, or other signs of worsening. Will have him go for CT today, and I will notify him of results. I will call him with results. Will likely need antegrade ureteroscopy to clear ureter/kidney. All questions answered. in this encounter Plan of Treatment Date Type Specialty Care Team Description 06/03/2017 [facility] Esteban Stovall MD Ureteral stone Encounter [address] [place] [address] [phone] 06/03/2017 Procedure Pass Name Priority Associated Diagnoses Order Schedule CULTURE-URINE W/SENSITIVITY Routine Nephrolithiasis Expected: 05/11/2017 (Approximate), Expires: 05/11/2018 CULTURE-URINE W/SENSITIVITY Routine Nephrolithiasis Expected: 05/11/2017 (Approximate), Expires: 05/11/2018 as of this encounter Results * CT ABD/PELV WO CONTRAST (05/11/2017 [...] Interface, Radiant Results - 05/11/2017 4:25 [address]IPPER [address] ABDOMEN AND PELVIS Clinical Indication: Male, [...] Schneider M.D. on 05/11/2017 2:39 PM. * BASIC METABOLIC PANEL (05/11/2017 11:46 AM) [...] questions. Specimen Performing Laboratory Blood MAIN LAB [address] [place] [address] * CBC (05/11/2017 11:46 AM) Component Value [...] - 11 FL Specimen Performing Laboratory Blood MAIN LAB [address] [place] [address] * CULTURE-URINE W/SENSITIVITY (05/11/2017 11:28 AM) Component Value Ref Range Battery Name URINE CULTURE Specimen Description URINE, CLEAN CATCH Special Requests NONE Culture >100,000 organisms/ml ESCHERICHIA COLI, ESBL POSITIVE (A) Report Status FINAL 05/14/2017 Organism ID >100,000 organisms/ml ESCHERICHIA COLI, ESBL POSITIVE Specimen Performing Laboratory Urine - Urine,Clean Catch MAIN LAB [address] [place] [address] Organism Antibiotic Method Susceptibility >100,000 organisms/ml Ampicillin [...] (MCG/ML) escherichia coli, esbl INTERPRETATION INTERPRETATION positive in this encounter Visit Diagnoses Diagnosis Nephrolithiasis Calculus of kidney in this encounter
--- OUTSIDE RECORDS SUMMARY | 2017-05-16 09:27 | XMS REPORT | Encounter Summary ---
Author Author [facility] Organization [facility] Address Unknown Phone Unavailable Care Team Providers Care Scrubber System Attendant Name Role Phone PCP Unavailable Encounter Details Date Type Department Care Team Description 05/11/2017 [facility] Esteban Stovall MD Calculus of kidney Encounter [address] [facility]. [address] [place] [address] [place] [address] [phone] Social History Tobacco Use Types Packs/Day Years Used Date Never Smoker Smokeless Tobacco: Never Used Alcohol Use Drinks/Week oz/Week Comments No Sex Assigned at Date Recorded Not on file as of this encounter Medications at Time of Discharge Medication Sig. Disp. Refills Start Date End Date baclofen (LIORESAL) 10 mg 04/13/2017 tablet ciprofloxacin (CIPRO) 500 05/10/2017 mg tablet clotrimazole-betamethason 05/10/2017 e (LOTRISONE) 1-0.05 % topical cream fenofibrate(+) (TRIGLIDE) 04/29/2017 160 mg tablet fluconazole (DIFLUCAN) 05/10/2017 150 mg tablet HYDROcodone/acetaminophen 04/19/2017 (NORCO) 5/325 mg tablet hydrocortisone(+) 2.5 % 03/10/2017 topical lotion metoprolol XL (TOPROL XL) 02/16/2017 25 mg extended release tablet nitrofurantoin 04/19/2017 macrocrystal (MACRODANTIN) 100 mg capsule tamsulosin (FLOMAX) 0.4 04/19/2017 mg capsule traMADol (ULTRAM) 50 mg 03/14/2017 tablet trimethoprim/sulfamethoxa 05/10/2017 zole (BACTRIM DS) 160/800 mg tablet as of this encounter Plan of Treatment Date Type Specialty Care Team Description 06/03/2017 [facility] Esteban Stovall MD Ureteral stone Encounter [address] [place] [address] [phone] 06/03/2017 Procedure Pass as of this encounter Results * BASIC METABOLIC PANEL (05/11/2017 11:46 AM) [...] Pharmacist for questions. Specimen Performing Laboratory Blood [facility]U MAIN LAB [address] [place] [address] * CBC (05/11/2017 11:46 AM) Component Value [...] Performing Laboratory Blood [facility] MAIN LAB [address] [place] [address] * CULTURE-URINE W/SENSITIVITY (05/11/2017 11:28 AM) Component Value Ref Range Battery Name URINE CULTURE Specimen Description URINE, CLEAN CATCH Special Requests NONE Culture >100,000 organisms/ml ESCHERICHIA COLI, ESBL POSITIVE (A) Report Status FINAL 05/14/2017 Organism ID >100,000 organisms/ml ESCHERICHIA COLI, ESBL POSITIVE Specimen Performing Laboratory Urine - Urine,Clean Catch [facility] MAIN LAB [address] [place] [address] Organism Antibiotic Method Susceptibility >100,000 organisms/ml Ampicillin [...] esbl INTERPRETATION Resistant positive >100,000 organisms/ml Piperacil/Tazobactam EYD (MCG/ML) <=2/4 SUSCEPTIBLE: escherichia coli, esbl INTERPRETATION [...] (MCG/ML) escherichia coli, esbl INTERPRETATION INTERPRETATION positive * CULTURE-URINE W/SENSITIVITY (05/11/2017 11:27 AM) Component Value Ref Range Battery Name URINE CULTURE Specimen Description URINE Special Requests NONE Culture >100,000 organisms/ml ESCHERICHIA COLI, ESBL POSITIVE See susceptibility on duplicate isolate Report Status FINAL 05/14/2017 Specimen Performing Laboratory Urine [facility] MAIN LAB [address] [place] [address] in this encounter Visit Diagnoses Diagnosis Nephrolithiasis Calculus of kidney in this encounter Admitting Diagnoses Diagnosis Calculus of kidney in this encounter
--- OUTSIDE RECORDS SUMMARY | 2017-05-16 09:27 | XMS REPORT | Encounter Summary ---
Author Author [facility] Organization [facility] Address Unknown Phone Unavailable Care Team Providers Care Research Test Engine Operator Name Role Phone PCP Unavailable Encounter Details Date Type Department Care Team Description 05/12/2017 Prep for Case [facility] Esteban Stovall MD Physicians - Urology [address] [facility] [address] [address] [address] [facility] MED [phone] [place] [address] Social History Tobacco Use Types Packs/Day Years Used Date Never Smoker Smokeless Tobacco: Never Used Alcohol Use Drinks/Week oz/Week Comments No Sex Assigned at Date Recorded Not on file as of this encounter Plan of Treatment Date Type Specialty Care Team Description 06/03/2017 Hospital Esteban Stovall MD Ureteral stone Encounter [address] [place], [place] [id number] 06/03/2017 Procedure Pass as of this encounter Visit Diagnoses Not on filein this encounter
--- OUTSIDE RECORDS SUMMARY | 2017-05-16 09:27 | XMS REPORT | Encounter Summary ---
Author Author [facility] Address Unknown Phone Unavailable Care Team Providers Care Boilermaker Name Role Phone PCP Unavailable Encounter Details Date Type Department Care Team Description 05/13/2017 Orders Only [facility] Esteban Stovall MD Physicians - Urology [address] [facility] [address] [place] [address] [address] [facility] [phone] [place] [address] Social History Tobacco Use Types Packs/Day Years Used Date Never Smoker Smokeless Tobacco: Never Used Alcohol Use Drinks/Week oz/Week Comments No Sex Assigned at Date Recorded Not on file as of this encounter Plan of Treatment Date Type Specialty Care Team Description 06/03/2017 Hospital Esteban Stovall MD Ureteral stone Encounter [address] [place], [place] [id number] 06/03/2017 Procedure Pass as of this encounter Visit Diagnoses Not on filein this encounter
--- OUTSIDE RECORDS SUMMARY | 2017-05-16 09:27 | XMS REPORT | Encounter Summary ---
Author Author [facility] Organization [facility] Address Unknown Phone Unavailable Care Team Providers Care Manager Operating Name Role Phone PCP Unavailable Encounter Details Date Type Department Care Team Description 05/11/2017 Orders Only [facility] Jese Tam MD [facility] Radiology [address] [place] [address] [place] [address] [phone] Social History Tobacco Use Types Packs/Day Years Used Date Never Smoker Smokeless Tobacco: Never Used Alcohol Use Drinks/Week oz/Week Comments No Sex Assigned at Date Recorded Not on file as of this encounter Plan of Treatment Date Type Specialty Care Team Description 06/03/2017 Hospital Esteban Stovall MD Ureteral stone Encounter [address] [place] [address] [phone] 06/03/2017 Procedure Pass as of this encounter Visit Diagnoses Not on filein this encounter
--- OUTSIDE RECORDS SUMMARY | 2017-05-16 09:27 | XMS REPORT | Encounter Summary ---
Author Author [facility] Organization [facility] Address Unknown Phone Unavailable Care Team Providers Care Security Orderly Name Role Phone PCP Unavailable Encounter Details Date Type Department Care Team Description 06/03/2017 Procedure Pass Main Operating Room [address] [place] [address] Social History Tobacco Use Types Packs/Day Years Used Date Never Smoker Smokeless Tobacco: Never Used Alcohol Use Drinks/Week oz/Week Comments No Sex Assigned at Date Recorded Not on file as of this encounter Plan of Treatment Date Type Specialty Care Team Description 06/03/2017 Hospital Esteban Stovall MD Ureteral stone Encounter [address] [place] [address] [phone] 06/03/2017 Procedure Pass as of this encounter Visit Diagnoses Not on filein this encounter
--- OUTSIDE RECORDS SUMMARY | 2017-05-16 09:27 | XMS REPORT | Encounter Summary ---
Author Author [facility] Organization [facility] Address Unknown Phone Unavailable Care Team Providers Care Tobacco Warehouse Agent Name Role Phone PCP Unavailable Encounter Details Date Type Department Care Team Description 05/11/2017 Procedure Pass [facility] Radiology [address] [place] [address] Social History Tobacco Use Types Packs/Day Years Used Date Never Smoker Smokeless Tobacco: Never Used Alcohol Use Drinks/Week oz/Week Comments No Sex Assigned at Date Recorded Not on file as of this encounter Plan of Treatment Date Type Specialty Care Team Description 06/03/2017 [facility] Esteban Stovall MD Ureteral stone Encounter [address] [place] [address] [phone] 06/03/2017 Procedure Pass as of this encounter Visit Diagnoses Not on filein this encounter
--- OUTSIDE RECORDS SUMMARY | 2017-05-16 09:27 | XMS REPORT | Encounter Summary ---
Author Author [facility] Organization [facility] Address Unknown Phone Unavailable Care Team Providers Care Dyed Yarn Operator Name Role Phone PCP Unavailable Reason for Referral * Radiology Services Status Reason Specialty Diagnoses / Referred By Referred To Procedures Contact Contact No Auth Needed Radiology Diagnoses Esteban Stovall MD [address] Nephrolithiasis [address] [place] [address] [place] [address] Phone: CONTRAST [phone] * Radiology Services Status Reason Specialty Diagnoses / Referred By Referred To Procedures Contact Contact No Auth Needed Radiology Diagnoses Esteban Stovall MD [address] Nephrolithiasis [address] [place] [address] [place] [address] Phone: CONTRAST [phone] Reason for Visit * Radiology Services Status Reason Specialty Diagnoses / Referred By Referred To Procedures Contact Contact No Auth Needed Radiology Diagnoses Esteban Stovall MD [address] Nephrolithiasis [address] [place] [address] [place] A[place] [address] Phone: CONTRAST [phone] Encounter Details Date Type Department Care Team Description 05/11/2017 Hospital [facility] Esteban Stovall MD Arrived Encounter [facility] Radiology [address] [facility] [address] [place] [address] [place] [address] [phone] Social History Tobacco Use Types Packs/Day Years [...] Date Type Specialty Care Team Description 06/03/2017 [facility] Esteban Stovall MD Ureteral stone Encounter [address] [place] [address] [phone] 06/03/2017 Procedure Pass as of this encounter Results * CT [...] Interface, Radiant Results - 05/11/2017 4:[address] ABDOMEN AND PELVIS Clinical Indication: Male, [...] Schneider M.D. on 05/11/2017 2:39 PM. * URINALYSIS, MICROSCOPIC (05/11/2017 11:28 AM) Component Value Ref Range WBCs,UA PACKED 0 - 2 /HPF RBCs,UA 2-10 0 - 3 /HPF MucousUA TRACE Bacteria,UA FEW (A) NEG-NEG WBC Clumps PRESENT Specimen Performing Laboratory MAIN LAB [address] [place] [address] * URINALYSIS DIPSTICK (05/11/2017 11:28 AM) Component Value Ref Range Color,UA YELLOW Turbidity,UA 1+ (A) CLEAR-CLEAR Specific [place]-Urine 1.013 1.003 - 1.035 pH,UA 6.0 5.0 [...] result. Specimen Performing Laboratory MAIN LAB [address] [place] [address] * URINALYSIS, MICROSCOPIC (05/11/2017 11:27 AM) Component Value Ref Range WBCs,UA PACKED 0 - 2 /HPF RBCs,UA 20-50 0 - 3 /HPF Bacteria,UA MANY (A) NEG-NEG WBC Clumps PRESENT Specimen Performing Laboratory MAIN LAB [address] [place] [address] * URINALYSIS DIPSTICK (05/11/2017 11:27 AM) Component Value Ref Range Color,UA YELLOW Turbidity,UA 2+ (A) CLEAR-CLEAR Specific [place]-Urine 1.013 1.003 - 1.035 pH,UA 7.0 5.0 - 8.0 Protein,UA 2+ (A) NEG-NEG Glucose,UA NEG NEG-NEG Ketones,UA NEG NEG-NEG Bilirubin,UA NEG NEG-NEG Blood,UA NEG NEG-NEG Urobilinogen,UA NORMAL NORM-NORMAL Nitrite,UA POS (A) NEG-NEG Leukocytes,UA 3+ (A) NEG-NEG Urine Ascorbic Acid, UA POS (A) NEG-NEG Comment: Ascorbic acid is found in various food supplies and dietary supplements, and is reported to cause strong interference with Macroscopic Urinalysis testing for glucose, blood and nitrite, and can result in a false negative result. Specimen Performing Laboratory MAIN LAB [address] [place] [address] in this encounter Visit Diagnoses Diagnosis Nephrolithiasis Calculus of kidney in this encounter
--- OUTSIDE RECORDS SUMMARY | 2017-05-16 09:30 | XMS REPORT | Continuity of Care Document ---
Author Author [facility] Organization [facility] Address Unknown Phone Unavailable Allergies Active Description Code Type Severity Reaction Onset Reported/Identified Relationship to Patient Clinical Status Yes iodine [id number] Drug Allergy Unknown N/A 09/01/2006 Yes Penicillins [id number] Drug Allergy Unknown N/A 09/01/2006 Yes Penicillins [id number] Drug Allergy Severe Anaphylaxis 03/31/2017 Yes Penicillins [id number] Drug Allergy Severe Anaphylaxis (pt 04/19/2017 Medications There is no data. Problems Date Dx Coded Attending Type Code Diagnosis Diagnosed By 03/31/1154 SAUNDRA LUIS Ot M79.622 PAIN IN LEFT UPPER ARM 03/31/1154 SAUNDRA LUIS Ot M79.632 PAIN IN LEFT FOREARM 03/31/1154 SAUNDRA LUIS Ot Z47.89 ENCOUNTER FOR OTHER ORTHOPEDIC AFTERCARE 01/23/2010 Ot 723.1 01/23/2010 Ot 729.1 01/23/2010 Ot V57.1 04/08/2010 Ot 708.0 04/08/2010 Ot 782.1 04/08/2010 Ot 995.7 04/08/2010 Ot V15.05 05/21/2010 Ot 592.0 05/21/2010 Ot 601.0 05/21/2010 Ot 601.1 05/21/2010 Ot 788.20 05/21/2010 Ot V58.69 05/30/2010 Ot 601.9 05/30/2010 Ot 788.20 06/01/2010 Ot 601.0 08/21/2010 Ot 433.30 08/21/2010 Ot 723.1 08/21/2010 Ot V58.69 04/19/2012 Ot 728.87 MUSCLE WEAKNESS (GENERALIZED) 04/19/2012 Ot V57.1 PHYSICAL THERAPY NEC 07/12/2012 Ot V57.1 PHYSICAL THERAPY NEC 07/12/2012 Ot V58.78 AFTERCARE POST SURGERY MUSCULOSKELETAL S 03/23/2013 ALLYSSA SAMPSON, JOAN S Ot 530.11 REFLUX ESOPHAGITIS 03/23/2013 ALLYSSA SAMPSON, JOAN S Ot 530.3 ESOPHAGEAL STRICTURE 03/23/2013 ALLYSSA SAMPSON, JOAN S Ot 553.3 DIAPHRAGMATIC HERNIA 06/28/2013 ALLYSSA SAMPSON, JOAN S Ot 530.11 REFLUX ESOPHAGITIS 07/11/2013 MARICARMEN SAMPSON, PHILLIP Cerna Ot V57.1 PHYSICAL THERAPY NEC 07/11/2013 PHILLIP HERNADEZ MD Ot V58.78 AFTERCARE POST SURGERY MUSCULOSKELETAL S 11/05/2013 TANYA BARAJAS DO Ot 338.4 CHRONIC PAIN SYNDROME 11/05/2013 TANYA BARAJAS DO Ot 721.3 LUMBOSACRAL SPONDYLOSIS 11/05/2013 TANYA BARAJAS DO Ot V57.1 PHYSICAL THERAPY NEC 03/27/2014 WERNER SAMPSON, TEETEE Arreguin Ot 272.4 03/27/2014 WERNER SAMPSON, TEETEE Arreguin Ot 530.81 03/27/2014 TEETEE CALDERA MD Ot 786.59 04/08/2014 TEETEE CALDERA MD Ot 272.4 04/08/2014 TEETEE CALDERA MD Ot 530.81 04/08/2014 TEETEE CALDERA MD Ot 786.59 12/10/2014 KALEY SAMPSON, DARBY Nelson Ot V43.61 12/10/2014 KALEY SAMPSON, DARBY Nelson Ot V54.81 12/10/2014 KALEY SAMPSON, DARBY Nelson Ot V57.1 12/30/2014 KALEY SAMPSON, DARBY Nelson Ot V43.61 12/30/2014 KALEY SAMPSON, DARBY Nelson Ot V54.81 12/30/2014 KALEY SAMPSON, DARBY Nelson Ot V57.1 01/02/2015 KALEY SAMPSON, DARBY Nelson Ot V43.61 01/02/2015 KALEY SAMPSON, DARBY Nelson Ot V54.81 01/02/2015 KALEY SAMPSON, DARBY Nelson Ot V57.1 01/02/2015 KALEY SAMPSON, DARBY Nelson Ot V43.61 01/02/2015 KALEY SAMPSON, DARBY Nelson Ot V54.81 01/02/2015 KALEY SAMPSON, DARBY Nelson Ot V57.1 01/29/2015 KALEY SAMPSON, DARBY Nelson Ot V43.61 SHOULDER JOINT REPLACEMENT STATUS 01/29/2015 KALEY SAMPSON, DARBY Nelson Ot V54.81 AFTERCARE FOLLOWING JOINT REPLACEMENT 01/29/2015 KALEY SAMPSON, DARBY Nelson Ot V57.1 PHYSICAL THERAPY NEC 01/30/2015 KALEY SAMPSON, DARBY Nelson Ot V43.61 01/30/2015 KALEY SAMPSON, DARBY Nelson Ot V54.81 01/30/2015 KALEY SAMPSON, DARBY Nelson Ot V57.1 04/17/2015 JEFF SAMPSON, ALBERTINA Cerna Ot Z47.1 04/17/2015 ALBERTINA AGUILAR MD Ot Z96.612 04/19/2015 DRE SAMPSON, MERLINE Tsai Ot I48.91 UNSPECIFIED ATRIAL FIBRILLATION 05/13/2015 JEFF SAMPSON, ALBERTINA Cerna Ot Z47.1 05/13/2015 ALBERTINA AGUILAR MD Ot Z96.612 05/19/2015 ALBERTINA AGUILAR MD Ot Z47.1 AFTERCARE FOLLOWING JOINT REPLACEMENT HEARD 05/19/2015 JEFF SAMPSON, ALBERTINA Cerna Ot 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 07/03/2015 Ot 722.52 07/03/2015 Ot 737.30 07/03/2015 ALLYSSA SAMPSON, JOAN S Ot V72.84 07/03/2015 ALLYSSA SAMPSON, JOAN S Ot 553.3 07/03/2015 ALLYSSA SAMPSON, JOAN Turner Ot 787.20 07/03/2015 ALLYSSA SAMPSON, JOAN S Ot V72.84 07/03/2015 ALLYSSA SAMPSON, JOAN S Ot V72.84 07/03/2015 TEETEE CALDERA MD Ot 272.4 07/03/2015 WERNER SAMPSON, TEETEE Arreguin Ot 530.81 07/03/2015 TEETEE CALDERA MD Ot 786.59 07/07/2015 Ot 722.52 07/07/2015 Ot 737.30 07/07/2015 ALLYSSA SAMPSON, JOAN S Ot V72.84 07/07/2015 ALLYSSA SAMPSON, JOAN S Ot 553.3 07/07/2015 ALLYSSA SAMPSON, JOAN S Ot 787.20 07/07/2015 ALLYSSA SAMPSON, JOAN S Ot V72.84 07/07/2015 ALLYSSA SAMPSON, JOAN S Ot V72.84 07/07/2015 WERNER SAMPSON, TEETEE Arreguin Ot 272.4 07/07/2015 TEETEE CALDERA MD Ot 530.81 07/07/2015 TEETEE CALDERA MD Ot 786.59 07/07/2015 DYLON HERNANDEZ MD Ot E78.2 07/07/2015 DYLON HERNANDEZ MD Ot I44.4 07/07/2015 DYLON HERNANDEZ MD Ot I48.0 07/07/2015 DYLON HERNANDEZ MD Ot I65.23 07/24/2015 DYLON HERNANDEZ MD Ot E78.2 07/24/2015 DYLON HERNANDEZ MD Ot I44.4 07/24/2015 DYLON HERNANDEZ MD Ot I48.0 07/24/2015 DYLON HERNANDEZ MD Ot I65.23 07/30/2015 DYLON HERNANDEZ MD Ot E78.2 07/30/2015 DYLON HERNANDEZ MD Ot I44.4 07/30/2015 DYLON HERNANDEZ MD Ot I48.0 07/30/2015 DYLON HERNANDEZ MD Ot I65.23 08/22/2015 DYLON HERNANDEZ MD Ot E78.2 MIXED HYPERLIPIDEMIA 08/22/2015 DYLON HERNANDEZ MD Ot I44.4 LEFT ANTERIOR FASCICULAR BLOCK 08/22/2015 DYLON HERNANDEZ MD Ot I48.0 PAROXYSMAL ATRIAL FIBRILLATION 08/22/2015 DYLON HERNANDEZ MD Ot 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 08/22/2015 SAUNDRA LUIS Ot M79.622 PAIN IN LEFT UPPER ARM 08/22/2015 SAUNDRA LUIS Ot M79.632 PAIN IN LEFT FOREARM 08/22/2015 SAUNDRA LUIS Ot Z47.89 ENCOUNTER FOR OTHER ORTHOPEDIC AFTERCARE 08/28/2015 DYLON HERNANDEZ MD Ot E78.2 MIXED HYPERLIPIDEMIA 08/28/2015 DYLON HERNANDEZ MD Ot I44.4 LEFT ANTERIOR FASCICULAR BLOCK 08/28/2015 DYLON HERNANDEZ MD Ot I48.0 PAROXYSMAL ATRIAL FIBRILLATION 08/28/2015 DYLON HERNANDEZ MD Ot 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 09/22/2015 SAUNDRA LUIS Ot M79.622 PAIN IN LEFT UPPER ARM 09/22/2015 SAUNDRA LUIS Ot M79.632 PAIN IN LEFT FOREARM 09/22/2015 SAUNDRA LUIS Ot Z47.89 ENCOUNTER FOR OTHER ORTHOPEDIC AFTERCARE 10/01/2015 MERLINE ERICKSON MD Ot I48.91 UNSPECIFIED ATRIAL FIBRILLATION 10/01/2015 SAUNDRA LUIS Ot M79.622 PAIN IN LEFT UPPER ARM 10/01/2015 SAUNDRA LUIS Ot M79.632 PAIN IN LEFT FOREARM 10/01/2015 SAUNDRA LUIS Ot Z47.89 ENCOUNTER FOR OTHER ORTHOPEDIC AFTERCARE 10/05/2015 DYLON HERNANDEZ MD Ot E78.2 MIXED HYPERLIPIDEMIA 10/05/2015 DYOLN HERNANDEZ MD Ot I44.4 LEFT ANTERIOR FASCICULAR BLOCK 10/05/2015 DYLON HERNANDEZ MD Ot I48.0 PAROXYSMAL ATRIAL FIBRILLATION 10/05/2015 DYLON HERNANDEZ MD Ot 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 10/09/2015 SAUNDRA LUIS Ot M79.622 PAIN IN LEFT UPPER ARM 10/09/2015 SAUNDRA LUIS Ot M79.632 PAIN IN LEFT FOREARM 10/09/2015 SAUNDRA LUIS Ot Z47.89 ENCOUNTER FOR OTHER ORTHOPEDIC AFTERCARE 03/17/2016 Ot 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 03/17/2016 Ot 737.30 IDIOPATHIC SCOLIOSIS 03/17/2016 JOAN SPIVEY MD Ot V72.84 EXAM PRE-OPERATIVE NOS 03/17/2016 ALLYSSA SAMPSON, JOAN Turner Ot 553.3 DIAPHRAGMATIC HERNIA 03/17/2016 JOAN SPIVEY MD Ot 787.20 DYSPHAGIA, UNSPECIFIED 03/17/2016 JOAN SPIVEY MD Ot V72.84 EXAM PRE-OPERATIVE NOS 03/17/2016 JOAN SPIVEY MD Ot V72.84 EXAM PRE-OPERATIVE NOS 03/17/2016 TEETEE CALDERA MD Ot 272.4 HYPERLIPIDEMIA NEC/NOS 03/17/2016 TEETEE CALDERA MD Ot 530.81 ESOPHAGEAL REFLUX 03/17/2016 TEETEE CALDERA MD Ot 786.59 CHEST PAIN NEC 03/17/2016 DYLON HERNANDEZ MD Ot E78.2 MIXED HYPERLIPIDEMIA 03/17/2016 DYLON HERNANDEZ MD Ot I44.4 LEFT ANTERIOR FASCICULAR BLOCK 03/17/2016 DYLON HERNANDEZ MD Ot I48.0 PAROXYSMAL ATRIAL FIBRILLATION 03/17/2016 DYLON HERNANDEZ MD Ot 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 03/17/2016 DYLON HERNANDEZ MD Ot E78.2 MIXED HYPERLIPIDEMIA 03/17/2016 DYLON HERNANDEZ MD Ot I44.4 LEFT ANTERIOR FASCICULAR BLOCK 03/17/2016 DYLON HERNANDEZ MD Ot I48.0 PAROXYSMAL ATRIAL FIBRILLATION 03/17/2016 DYLON HERNANDEZ MD Ot 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 04/13/2016 DYLON HERNANDEZ MD Ot E78.5 HYPERLIPIDEMIA, UNSPECIFIED 04/13/2016 DYLON HERNANDEZ MD Ot I48.0 PAROXYSMAL ATRIAL FIBRILLATION 04/13/2016 DYLON HERNANDEZ MD Ot 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 04/13/2016 DYLON HERNANDEZ MD Ot I49.3 VENTRICULAR PREMATURE DEPOLARIZATION 04/13/2016 DYLON HERNANDEZ MD Ot 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 04/13/2016 DYLON HERNANDEZ MD Ot Z79.899 OTHER CORRECTION (CURRENT) DRUG THERAPY 05/04/2016 DYLON HERNANDEZ MD Ot E78.5 HYPERLIPIDEMIA, UNSPECIFIED 05/04/2016 DYLON HERNANDEZ MD Ot I48.0 PAROXYSMAL ATRIAL FIBRILLATION 05/04/2016 DYLON HERNANDEZ MD Ot 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 05/04/2016 DYLON HERNANDEZ MD Ot I49.3 VENTRICULAR PREMATURE DEPOLARIZATION 05/04/2016 DYLON HERNANDEZ MD Ot 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 05/04/2016 DYLON HERNANDEZ MD Ot Z79.899 OTHER CORRECTION (CURRENT) DRUG THERAPY 05/12/2016 DYLON HERNANDEZ MD Ot E78.5 HYPERLIPIDEMIA, UNSPECIFIED 05/12/2016 DYLON HERNANDEZ MD Ot I48.0 PAROXYSMAL ATRIAL FIBRILLATION 05/12/2016 DYLON HERNANDEZ MD Ot 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 05/12/2016 DYLON HERNANDEZ MD Ot I49.3 VENTRICULAR PREMATURE DEPOLARIZATION 05/12/2016 DYLON HERNANDEZ MD Ot 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 05/12/2016 DYLON HERNANDEZ MD Ot 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 09/14/2016 Ot 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 09/14/2016 Ot 737.30 IDIOPATHIC SCOLIOSIS 09/14/2016 ALLYSSA SAMPSON, JOAN S Ot V72.84 EXAM PRE-OPERATIVE NOS 09/14/2016 ALLYSSA SAMPSON, JOAN S Ot 553.3 DIAPHRAGMATIC HERNIA 09/14/2016 ALLYSSA SAMPSON, JOAN S Ot 787.20 DYSPHAGIA, UNSPECIFIED 09/14/2016 ALLYSSA SAMPSON, JOAN S Ot V72.84 EXAM PRE-OPERATIVE NOS 09/14/2016 JOAN SPIVEY MD S Ot V72.84 EXAM PRE-OPERATIVE NOS 09/14/2016 TEETEE CALDERA MD Ot 272.4 HYPERLIPIDEMIA NEC/NOS 09/14/2016 TEETEE CALDERA MD Ot 530.81 ESOPHAGEAL REFLUX 09/14/2016 TEETEE CALDERA MD Ot 786.59 CHEST PAIN NEC 09/14/2016 DYLON HERNANDEZ MD Ot E78.2 MIXED HYPERLIPIDEMIA 09/14/2016 DYLON HERNANDEZ MD Ot I44.4 LEFT ANTERIOR FASCICULAR BLOCK 09/14/2016 DYLON HERNANDEZ MD Ot I48.0 PAROXYSMAL ATRIAL FIBRILLATION 09/14/2016 DYLON HERNANDEZ MD Ot 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 09/14/2016 DYLON HERNANDEZ MD Ot E78.2 MIXED HYPERLIPIDEMIA 09/14/2016 DYLON HERNANDEZ MD Ot I44.4 LEFT ANTERIOR FASCICULAR BLOCK 09/14/2016 DYLON HERNANDEZ MD Ot I48.0 PAROXYSMAL ATRIAL FIBRILLATION 09/14/2016 DYLON HERNANDEZ MD Ot 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 09/14/2016 DYLON HERNANDEZ MD Ot E78.5 HYPERLIPIDEMIA, UNSPECIFIED 09/14/2016 DYLON HERNANDEZ MD Ot I48.0 PAROXYSMAL ATRIAL FIBRILLATION 09/14/2016 DYLON HERNANDEZ MD Ot 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 09/14/2016 DYLON HERNANDEZ MD Ot I49.3 VENTRICULAR PREMATURE DEPOLARIZATION 09/14/2016 DYLON HERNANDEZ MD Ot 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 09/14/2016 DYLON HERNANDEZ MD Ot 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 09/18/2016 ISAAC PA, STEF K Ot E78.2 MIXED HYPERLIPIDEMIA 09/18/2016 ISAAC PA, STEF K Ot I48.0 PAROXYSMAL ATRIAL FIBRILLATION 09/18/2016 ISAAC PA, STEF K Ot 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 09/18/2016 VANIA-MANASA PA, STEF K Ot R53.83 OTHER FATIGUE 10/08/2016 VANIA-MANASA PA, STEF K Ot E78.2 MIXED HYPERLIPIDEMIA 10/08/2016 VANIA-MANASA PA, STEF K Ot I48.0 PAROXYSMAL ATRIAL FIBRILLATION 10/08/2016 VANIA-MANASA PA, STFE K Ot 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 10/08/2016 VANIA-MANASA PA, STEF K Ot R53.83 OTHER FATIGUE 10/13/2016 VANIA-MANASA PA, STEF K Ot E78.2 MIXED HYPERLIPIDEMIA 10/13/2016 VANIA-MANASA PA, STEF K Ot I48.0 PAROXYSMAL ATRIAL FIBRILLATION 10/13/2016 VANIA-MANASA PA, STEF K Ot 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 10/13/2016 VANIA-MANASA PA, STEF K Ot R53.83 OTHER FATIGUE 11/25/2016 PHILLIP HERNADEZ MD Ot 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, THORACIC REG 11/25/2016 PHILLIP HERNADEZ MD Ot M47.814 SPONDYLOSIS W/O MYELOPATHY OR RADICULOPA 11/25/2016 PHILLIP HERNADEZ MD Ot 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, THORACIC REGION 11/30/2016 PHILLIP HERNADEZ MD Ot 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, THORACIC REG 11/30/2016 PHILLIP HERNADEZ MD Ot M47.814 SPONDYLOSIS W/O MYELOPATHY OR RADICULOPA 11/30/2016 PHILLIP HERNADEZ MD Ot 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, THORACIC REGION 11/30/2016 PHILLIP HERNADEZ MD Ot 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, THORACIC REG 11/30/2016 PHILLIP HERNADEZ MD Ot M47.814 SPONDYLOSIS W/O MYELOPATHY OR RADICULOPA 11/30/2016 PHILLIP HERNADEZ MD Ot 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, THORACIC REGION 11/30/2016 PHILLIP HERNADEZ MD Ot 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, THORACIC REG 11/30/2016 PHILLIP HERNADEZ MD Ot M47.814 SPONDYLOSIS W/O MYELOPATHY OR RADICULOPA 11/30/2016 PHILLIP HERNADEZ MD Ot 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, THORACIC REGION 11/30/2016 PHILLIP HERNADEZ MD Ot 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, THORACIC REG 11/30/2016 PHILLIP HERNADEZ MD Ot M47.814 SPONDYLOSIS W/O MYELOPATHY OR RADICULOPA 11/30/2016 PHILLIP HERNADEZ MD Ot 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, THORACIC REGION 11/30/2016 PHILLIP HERNADEZ MD Ot 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, THORACIC REG 11/30/2016 PHILLIP HERNADEZ MD Ot M47.814 SPONDYLOSIS W/O MYELOPATHY OR RADICULOPA 11/30/2016 PHILLIP HERNADEZ MD Ot 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, THORACIC REGION 11/30/2016 PHILLIP HERNADEZ MD Ot 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, THORACIC REG 11/30/2016 PHILLIP HERNADEZ MD, Ot M47.814 SPONDYLOSIS W/O MYELOPATHY OR RADICULOPA 11/30/2016 PHILLIP HERNADEZ MD Ot 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, THORACIC REGION 12/09/2016 Ot 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 12/09/2016 Ot 737.30 IDIOPATHIC SCOLIOSIS 12/09/2016 JOAN SPIVEY MD Ot V72.84 EXAM PRE-OPERATIVE NOS 12/09/2016 JOAN SPIVEY MD Ot 553.3 DIAPHRAGMATIC HERNIA 12/09/2016 JOAN SPIVEY MD Ot 787.20 DYSPHAGIA, UNSPECIFIED 12/09/2016 JOAN SPIVEY MD Ot V72.84 EXAM PRE-OPERATIVE NOS 12/09/2016 JOAN SPIVEY MD Ot V72.84 EXAM PRE-OPERATIVE NOS 12/09/2016 TEETEE CALDERA MD Ot 272.4 HYPERLIPIDEMIA NEC/NOS 12/09/2016 WERNER SAMPSON, TEETEE Arreguin Ot 530.81 ESOPHAGEAL REFLUX 12/09/2016 WERNER SAMPSON, TEETEE Arreguin Ot 786.59 CHEST PAIN NEC 12/09/2016 DYLON HERNANDEZ MD Ot E78.2 MIXED HYPERLIPIDEMIA 12/09/2016 DYLON HERNANDEZ MD Ot I44.4 LEFT ANTERIOR FASCICULAR BLOCK 12/09/2016 DYLON HERNANDEZ MD Ot I48.0 PAROXYSMAL ATRIAL FIBRILLATION 12/09/2016 DYLON HERNANDEZ MD Ot 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 12/09/2016 DYLON HERNANDEZ MD Ot E78.2 MIXED HYPERLIPIDEMIA 12/09/2016 DYLON HERNANDEZ MD Ot I44.4 LEFT ANTERIOR FASCICULAR BLOCK 12/09/2016 DYLON HERNANDEZ MD Ot I48.0 PAROXYSMAL ATRIAL FIBRILLATION 12/09/2016 DYLON HERNANDEZ MD Ot 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 12/09/2016 DYLON HERNANDEZ MD Ot E78.5 HYPERLIPIDEMIA, UNSPECIFIED 12/09/2016 DYLON HERNANDEZ MD Ot I48.0 PAROXYSMAL ATRIAL FIBRILLATION 12/09/2016 DYLON HERNANDEZ MD Ot 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 12/09/2016 DYLON HERNANDEZ MD Ot I49.3 VENTRICULAR PREMATURE DEPOLARIZATION 12/09/2016 DYLON HERNANDEZ MD Ot 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 12/09/2016 DYLON HERNANDEZ MD Ot 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 12/09/2016 STEF DICKENS Ot E78.2 MIXED HYPERLIPIDEMIA 12/09/2016 STEF DICKENS Ot I48.0 PAROXYSMAL ATRIAL FIBRILLATION 12/09/2016 STEF DICKENS Ot 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 12/09/2016 STEF DICKENS Ot R53.83 OTHER FATIGUE 12/09/2016 PHILLIP HERNADEZ MD Ot 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, THORACIC REG 12/09/2016 PHILLIP HERNADEZ MD, Ot M47.814 SPONDYLOSIS W/O MYELOPATHY OR RADICULOPA 12/09/2016 PHILLIP HERNADEZ MD Ot 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, THORACIC REGION 12/10/2016 TANYA BARAJAS DO Ot 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, LUMBAR REGIO 12/10/2016 TANYA BARAJAS DO, Ot M48.06 SPINAL STENOSIS, LUMBAR REGION 12/10/2016 TANYA BARAJAS DO Ot M51.36 OTHER INTERVERTEBRAL DISC DEGENERATION, 12/24/2016 PHILLIP HERNADEZ MD, Ot 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, THORACIC REG 12/24/2016 PHILLIP HERNADEZ MD Ot M47.814 SPONDYLOSIS W/O MYELOPATHY OR RADICULOPA 12/24/2016 PHILLIP HERNADEZ MD, Ot 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, THORACIC REGION 12/27/2016 PHILLIP HERNADEZ MD Ot 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, THORACIC REG 12/27/2016 PHILLIP HERNADEZ MD Ot M47.814 SPONDYLOSIS W/O MYELOPATHY OR RADICULOPA 12/27/2016 PHILLIP HERNADEZ MD, Ot 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, THORACIC REGION 12/29/2016 TANYA BARAJAS DO Ot 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, LUMBAR REGIO 12/29/2016 TANYA BARAJAS DO Ot M48.06 SPINAL STENOSIS, LUMBAR REGION 12/29/2016 TANYA BARAJAS DO Ot M51.36 OTHER INTERVERTEBRAL DISC DEGENERATION, 01/05/2017 TANYA BARAJAS DO Ot 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, LUMBAR REGIO 01/05/2017 TANYA BARAJAS DO Ot M48.06 SPINAL STENOSIS, LUMBAR REGION 01/05/2017 TANYA BARAJAS DO Ot M51.36 OTHER INTERVERTEBRAL DISC DEGENERATION, 02/16/2017 STEF DICKENS Ot E78.2 MIXED HYPERLIPIDEMIA 02/16/2017 STEF DICKENS Ot I10 ESSENTIAL (PRIMARY) HYPERTENSION 02/16/2017 STEF DICKENS Ot I34.0 NONRHEUMATIC MITRAL (VALVE) INSUFFICIENC 02/16/2017 STEF DICKENS Ot I48.0 PAROXYSMAL ATRIAL FIBRILLATION 02/16/2017 STEF DICKENS Ot 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 03/09/2017 ISAAC WHITEHEAD STEF Jane Ot E78.2 MIXED HYPERLIPIDEMIA 03/09/2017 ISAAC WHITEHEAD STEF K Ot I10 ESSENTIAL (PRIMARY) HYPERTENSION 03/09/2017 ISAAC WHITEHEAD STEF K Ot I34.0 NONRHEUMATIC MITRAL (VALVE) INSUFFICIENC 03/09/2017 CAROANNITA WHITEHEAD STEF Jane Ot I48.0 PAROXYSMAL ATRIAL FIBRILLATION 03/09/2017 CAROANNITA WHITEHEAD STEF K Ot 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 03/18/2017 CAROANNITA WHITEHEAD STEF Lucinda Ot E78.2 MIXED HYPERLIPIDEMIA 03/18/2017 CAROANNITA WHITEHEAD STEF Lucinda Ot I10 ESSENTIAL (PRIMARY) HYPERTENSION 03/18/2017 CAROANNITA WHITEHEAD STEF Lucinda Ot I34.0 NONRHEUMATIC MITRAL (VALVE) INSUFFICIENC 03/18/2017 CARO-MANASA WHITEHEAD STEF Lucinda Ot I48.0 PAROXYSMAL ATRIAL FIBRILLATION 03/18/2017 CAROANNITA WHITEHEAD STEF Lucinda Ot 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 03/31/2017 DRE HE MD Ot A41.9 SEPSIS, UNSPECIFIED ORGANISM 03/31/2017 DRE HE MD, Ot K59.00 CONSTIPATION, UNSPECIFIED 03/31/2017 DRE HE MD Ot L89.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 ULCER OF SACRAL REGION, STAGE 1 03/31/2017 DRE HE MD Ot M19.91 PRIMARY OSTEOARTHRITIS, UNSPECIFIED SITE 03/31/2017 DRE HE MD Ot N13.2 HYDRONEPHROSIS WITH RENAL AND URETERAL C 03/31/2017 DRE HE MD Ot N30.00 ACUTE CYSTITIS WITHOUT HEMATURIA 03/31/2017 DRE HE MD Ot R65.20 SEVERE SEPSIS WITHOUT SEPTIC SHOCK 03/31/2017 DRE HE MD Ot Z85.828 PERSONAL HISTORY OF OTHER MALIGNANT NEOP 03/31/2017 DRE HE MD Ot Z87.19 PERSONAL HISTORY OF OTHER DISEASES OF TH 03/31/2017 DRE HE MD Ot A41.9 SEPSIS, UNSPECIFIED ORGANISM 03/31/2017 DRE HE MD Ot K59.00 CONSTIPATION, UNSPECIFIED 03/31/2017 DRE HE MD Ot L89.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 ULCER OF SACRAL REGION, STAGE 1 03/31/2017 DRE HE MD Ot M19.91 PRIMARY OSTEOARTHRITIS, UNSPECIFIED SITE 03/31/2017 DRE HE MD Ot N13.2 HYDRONEPHROSIS WITH RENAL AND URETERAL C 03/31/2017 DRE HE MD Ot N30.00 ACUTE CYSTITIS WITHOUT HEMATURIA 03/31/2017 DRE HE MD Ot R65.20 SEVERE SEPSIS WITHOUT SEPTIC SHOCK 03/31/2017 DRE HE MD Ot Z85.828 PERSONAL HISTORY OF OTHER MALIGNANT NEOP 03/31/2017 DRE HE MD Ot Z87.19 PERSONAL HISTORY OF OTHER DISEASES OF 03/31/2017 DYLON HERNANDEZ MD Ot E78.2 MIXED HYPERLIPIDEMIA 03/31/2017 DYLON HERNANDEZ MD Ot I44.4 LEFT ANTERIOR FASCICULAR BLOCK 03/31/2017 DYLON HERNANDEZ MD Ot I48.0 PAROXYSMAL ATRIAL FIBRILLATION 03/31/2017 DYLON HERNANDEZ MD Ot 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 03/31/2017 DRE HE MD Ot A41.9 SEPSIS, UNSPECIFIED ORGANISM 03/31/2017 DRE HE MD Ot K59.00 CONSTIPATION, UNSPECIFIED 03/31/2017 DRE HE MD Ot L89.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 ULCER OF [place], STAGE 1 03/31/2017 DRE HE MD Ot M19.91 PRIMARY OSTEOARTHRITIS, UNSPECIFIED SITE 03/31/2017 DRE HE MD Ot N13.2 HYDRONEPHROSIS WITH RENAL AND URETERAL C 03/31/2017 DRE HE MD Ot N30.00 ACUTE CYSTITIS WITHOUT HEMATURIA 03/31/2017 DRE HE MD Ot R65.20 SEVERE SEPSIS WITHOUT SEPTIC SHOCK 03/31/2017 DRE HE MD Ot Z85.828 PERSONAL HISTORY OF OTHER MALIGNANT NEOP 03/31/2017 DRE HE MD Ot Z87.19 PERSONAL HISTORY OF OTHER DISEASES OF 04/01/2017 DRE HE MD Ot A41.51 SEPSIS DUE TO ESCHERICHIA COLI [E. COLI] 04/01/2017 DRE HE MD Ot A41.81 SEPSIS DUE TO ENTEROCOCCUS 04/01/2017 DRE HE MD Ot A41.9 SEPSIS, UNSPECIFIED ORGANISM 04/01/2017 DRE HE MD Ot E78.00 PURE HYPERCHOLESTEROLEMIA, UNSPECIFIED 04/01/2017 DRE HE MD Ot E78.5 HYPERLIPIDEMIA, UNSPECIFIED 04/01/2017 DRE HE MD Ot E86.0 DEHYDRATION 04/01/2017 DRE HE MD Ot G62.9 POLYNEUROPATHY, UNSPECIFIED 04/01/2017 DRE HE MD Ot I12.9 HYPERTENSIVE CHRONIC KIDNEY DISEASE W ST 04/01/2017 DRE HE MD Ot I48.0 PAROXYSMAL ATRIAL FIBRILLATION 04/01/2017 DRE HE MD Ot K21.9 GASTRO-ESOPHAGEAL REFLUX DISEASE WITHOUT 04/01/2017 DRE HE MD Ot K44.9 DIAPHRAGMATIC HERNIA WITHOUT OBSTRUCTION 04/01/2017 DRE HE MD Ot K59.00 CONSTIPATION, UNSPECIFIED 04/01/2017 DRE HE MD Ot L89.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 ULCER OF [place], STAGE 1 04/01/2017 DRE HE MD Ot M19.91 PRIMARY OSTEOARTHRITIS, UNSPECIFIED SITE 04/01/2017 DRE HE MD Ot M54.9 DORSALGIA, UNSPECIFIED 04/01/2017 DRE HE MD Ot N13.2 HYDRONEPHROSIS WITH RENAL AND URETERAL C 04/01/2017 DRE HE MD Ot N13.6 PYONEPHROSIS 04/01/2017 DRE HE MD Ot N17.9 ACUTE KIDNEY FAILURE, UNSPECIFIED 04/01/2017 DRE HE MD Ot N18.9 CHRONIC KIDNEY DISEASE, UNSPECIFIED 04/01/2017 DRE HE MD Ot N30.00 ACUTE CYSTITIS WITHOUT HEMATURIA 04/01/2017 DRE HE MD Ot N39.41 URGE INCONTINENCE 04/01/2017 DRE HE MD Ot N40.1 BENIGN PROSTATIC HYPERPLASIA WITH LOWER 04/01/2017 DRE HE MD Ot R35.0 FREQUENCY OF MICTURITION 04/01/2017 DRE HE MD Ot R60.0 LOCALIZED EDEMA 04/01/2017 DRE HE MD Ot R65.20 SEVERE SEPSIS WITHOUT SEPTIC SHOCK 04/01/2017 DRE HE MD Ot Z85.828 PERSONAL HISTORY OF OTHER MALIGNANT NEOP 04/01/2017 DRE HE MD Ot Z87.11 PERSONAL HISTORY OF PEPTIC ULCER DISEASE 04/01/2017 DRE HE MD Ot Z87.19 PERSONAL HISTORY OF OTHER DISEASES OF TH 04/01/2017 DRE HE MD Ot Z98.890 OTHER SPECIFIED POSTPROCEDURAL STATES 04/01/2017 JESÚS ALFARO N GAS DERRICK OPERATOR Ot N13.2 HYDRONEPHROSIS WITH RENAL AND URETERAL C 04/07/2017 NEGIN SAMPSON ALLYSON Armin Ot A41.51 SEPSIS DUE TO ESCHERICHIA COLI [E. COLI] 04/07/2017 ALLYSON KAM MD Ot A41.81 SEPSIS DUE TO ENTEROCOCCUS 04/07/2017 NEGIN SAMPSON ALLYSON E Ot E78.00 PURE HYPERCHOLESTEROLEMIA, UNSPECIFIED 04/07/2017 NEGIN SAMPSON ALLYSON E Ot E78.5 HYPERLIPIDEMIA, UNSPECIFIED 04/07/2017 NEGIN SAMPSON ALLYSON E Ot I12.9 HYPERTENSIVE CHRONIC KIDNEY DISEASE W ST 04/07/2017 NEGIN SAMPSON ALLYSON E Ot I48.0 PAROXYSMAL ATRIAL FIBRILLATION 04/07/2017 NEGIN SAMPSON ALLYSON E Ot K21.9 GASTRO-ESOPHAGEAL REFLUX DISEASE WITHOUT 04/07/2017 NEGIN SAMPSON ALLYSON E Ot K59.00 CONSTIPATION, UNSPECIFIED 04/07/2017 NEGIN SAMPSON ALLYSON E Ot L89.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 ULCER OF [place], STAGE 1 04/07/2017 NEGIN SAMPSON ALLYSON E Ot M54.9 DORSALGIA, UNSPECIFIED 04/07/2017 NEGIN SAMPSON ALLYSON E Ot N17.9 ACUTE KIDNEY FAILURE, UNSPECIFIED 04/07/2017 NEGIN SAMPSON ALLYSON E Ot N18.9 CHRONIC KIDNEY DISEASE, UNSPECIFIED 04/07/2017 NEGIN SAMPSON ALLYSON E Ot N20.0 CALCULUS OF KIDNEY 04/07/2017 NEGIN SAMPSON ALLYSON E Ot N30.00 ACUTE CYSTITIS WITHOUT HEMATURIA 04/07/2017 NEGIN SAMPSON ALLYSON E Ot N39.41 URGE INCONTINENCE 04/07/2017 NEGIN SAMPSON ALLYSON E Ot N40.1 BENIGN PROSTATIC HYPERPLASIA WITH LOWER 04/07/2017 NEGIN SAMPSON ALLYSON E Ot R35.0 FREQUENCY OF MICTURITION 04/07/2017 ALLYSON KAM MD Ot R60.0 LOCALIZED EDEMA 04/07/2017 NEGIN SAMPSON, ALLYSON Funez Ot Z85.828 PERSONAL HISTORY OF OTHER MALIGNANT NEOP 04/19/2017 MARY SAMPSON, DYLON Cerna Ot E78.2 MIXED HYPERLIPIDEMIA 04/19/2017 DYLON HERNANDEZ MD Ot I44.4 LEFT ANTERIOR FASCICULAR BLOCK 04/19/2017 DYLON HERNANDEZ MD Ot I48.0 PAROXYSMAL ATRIAL FIBRILLATION 04/19/2017 DYLON HERNANDEZ MD Ot 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 04/19/2017 BRONWYN MAZARIEGOS MD Ot N20.1 CALCULUS OF URETER 04/19/2017 BRONWYN MAZARIEGOS MD Ot 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 04/19/2017 BRONWYN MAZARIEGOS MD Ot I10 ESSENTIAL (PRIMARY) HYPERTENSION 04/19/2017 BRONWYN MAZARIEGOS MD Ot K21.9 GASTRO-ESOPHAGEAL REFLUX DISEASE WITHOUT 04/19/2017 BRONWYN MAZARIEGOS MD, Ot K44.9 DIAPHRAGMATIC HERNIA WITHOUT OBSTRUCTION 04/19/2017 BRONWYN MAZARIEGOS MD Ot N20.0 CALCULUS OF KIDNEY 04/19/2017 BRONWYN MAZARIEGOS MD, Ot 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 04/21/2017 BRONWYN MAZARIEGOS MD Ot I10 ESSENTIAL (PRIMARY) HYPERTENSION 04/21/2017 BRONWYN MAZARIEGOS MD, Ot K21.9 GASTRO-ESOPHAGEAL REFLUX DISEASE WITHOUT 04/21/2017 BRONWYN MAZARIEGOS MD, Ot K44.9 DIAPHRAGMATIC HERNIA WITHOUT OBSTRUCTION 04/21/2017 BRONWYN MAZARIEGOS MD Ot N20.0 CALCULUS OF KIDNEY 04/21/2017 BRONWYN MAZARIEGOS MD, Ot 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 04/21/2017 BRONWYN MAZARIEGOS MD Ot I10 ESSENTIAL (PRIMARY) HYPERTENSION 04/21/2017 BRONWYN MAZARIEGOS MD Ot K21.9 GASTRO-ESOPHAGEAL REFLUX DISEASE WITHOUT 04/21/2017 BRONWYN MAZARIEGOS MD, Ot K44.9 DIAPHRAGMATIC HERNIA WITHOUT OBSTRUCTION 04/21/2017 BRONWYN MAZARIEGOS MD Ot N20.0 CALCULUS OF KIDNEY 04/21/2017 BRONWYN MAZARIEGOS MD Ot Z79.899 OTHER CORRECTION (CURRENT) DRUG THERAPY 05/06/2017 YAIR SAMPSON, BRONWYN Zelaya Ot N20.0 CALCULUS OF KIDNEY 05/06/2017 YAIR SAMPSON, BRONWYN Zelaya Ot Z01.818 ENCOUNTER FOR OTHER PREPROCEDURAL EXAMIN 05/06/2017 YARI SAMPSON, BRONWYN Zelaya Ot Z88.0 ALLERGY STATUS TO PENICILLIN 05/09/2017 YAIR SAMPSON, BRONWYN A Ot N20.0 CALCULUS OF KIDNEY 05/09/2017 YAIR SAMPSON, BRONWYN A Ot Z01.818 ENCOUNTER FOR OTHER PREPROCEDURAL EXAMIN 05/09/2017 YAIR SAMPSON, BRONWYN Zelaya Ot Z88.0 ALLERGY STATUS TO PENICILLIN 05/09/2017 YAIR SAMPSON, BRONWYN A Ot N20.0 CALCULUS OF KIDNEY 05/09/2017 YAIR SAMPSON, BRONWYN Zelaya Ot Z01.818 ENCOUNTER FOR OTHER PREPROCEDURAL EXAMIN 05/09/2017 YAIR SAMPSON, BRONWYN Zelaya Ot Z88.0 ALLERGY STATUS TO PENICILLIN 05/09/2017 YAIR SAMPSON, BRONWYN A Ot N20.0 CALCULUS OF KIDNEY 05/09/2017 YAIR SAMPSON, BRONWYN A Ot Z01.818 ENCOUNTER FOR OTHER PREPROCEDURAL EXAMIN 05/09/2017 YAIR SAMPSON, BRONWYN Zelaya Ot Z88.0 ALLERGY STATUS TO PENICILLIN 05/09/2017 YAIR SAMPSON, BORNWYN A Ot N20.0 CALCULUS OF KIDNEY 05/09/2017 YAIR SAMPSON, BRONWYN A Ot Z01.818 ENCOUNTER FOR OTHER PREPROCEDURAL EXAMIN 05/09/2017 YAIR SAMPSON, BRONWYN A Ot Z88.0 ALLERGY STATUS TO PENICILLIN 05/09/2017 YAIR SAMPSON, BRONWYN A Ot N20.0 CALCULUS OF KIDNEY 05/09/2017 YAIR SAMPSON, BRONWYN A Ot Z01.818 ENCOUNTER FOR OTHER PREPROCEDURAL EXAMIN 05/09/2017 YAIR SAMPSON, BRONWYN A Ot Z88.0 ALLERGY STATUS TO PENICILLIN 05/09/2017 YAIR SAMPSON, BRONWYN A Ot N20.0 CALCULUS OF KIDNEY 05/09/2017 YAIR SAMPSON, BRONWYN A Ot Z01.818 ENCOUNTER FOR OTHER PREPROCEDURAL EXAMIN 05/09/2017 YAIR SAMPSON, BRONWYN Zelaya Ot Z88.0 ALLERGY STATUS TO PENICILLIN 05/11/2017 YAIR SAMPSON, BRONWYN Zelaya Ot N39.0 URINARY TRACT INFECTION, SITE NOT SPECIF Procedures Code Description Performed By Performed On 45.16 ESOPHAGOGASTRODUODENOSCOPY [ EGD] W/CLOSE 05/12/2009 [id number] DRAINAGE OF RIGHT KIDNEY WITH DRAINAGE D 03/30/2017 [id number] FLUOROSCOPY OF RIGHT KIDNEY USING LOW OS 03/30/2017 [id number] FRAGMENTATION IN RIGHT KIDNEY PELVIS, EX 04/06/2017 Results Test Result Range Complete blood count (CBC) with automated white blood cell (WBC) differential - 03/30/17 00:00 Blood leukocytes automated count (number/volume) 14.1 10*3/uL 4.3-11.0 Blood erythrocytes automated count (number/volume) 3.83 10*6/uL 4.35-5.85 Venous blood hemoglobin measurement (mass/volume) 12.2 g/dL 13.3-17.7 Blood hematocrit (volume fraction) 37 % 40-54 Automated erythrocyte mean corpuscular volume 97 [foz_us] 80-99 Automated erythrocyte mean corpuscular hemoglobin (mass per erythrocyte) 32 pg 25-34 Automated erythrocyte mean corpuscular hemoglobin concentration measurement ( mass/volume) 33 g/dL 32-36 Automated erythrocyte distribution width ratio 14.3 % 10.0-14.5 Automated blood platelet count (count/volume) 192 10*3/uL 130-400 Automated blood platelet mean volume measurement 10.6 [foz_us] 7.4-10.4 Automated blood neutrophils/100 leukocytes 82 % 42-75 Automated blood lymphocytes/100 leukocytes 6 % 12-44 Blood monocytes/100 leukocytes 12 % 0-12 Automated blood eosinophils/100 leukocytes 0 % 0-10 Automated blood basophils/100 leukocytes 0 % 0-10 Blood neutrophils automated count (number/volume) 11.6 10*3 1.8-7.8 Blood lymphocytes automated count (number/volume) 0.8 10*3 1.0-4.0 Blood monocytes automated count (number/volume) 1.8 10*3 0.0-1.0 Automated eosinophil count 0.0 10*3/uL 0.0-0.3 Automated blood basophil count (count/volume) 0.0 10*3/uL 0.0-0.1 Blood manual differential performed detection - 03/30/17 00:00 Blood monocytes/100 leukocytes 6 % NRG Manual blood segmented neutrophils/100 leukocytes 83 % NRG Blood band neutrophils/100 leukocytes 5 % NRG Manual blood lymphocytes/100 leukocytes 4 % NRG Manual eosinophils/100 leukocytes in nose 0 % NRG Manual blood basophils/100 leukocytes 0 % NRG Blood lymphocytes variant/100 leukocytes 2 % NRG Blood erythrocyte morphology finding identification NORMAL NRG PT panel in platelet poor plasma by coagulation assay - 03/30/17 00:00 Prothrombin time (PT) in platelet poor plasma by coagulation assay 14.6 s 12.2-14.7 INR in platelet poor plasma or blood by coagulation assay 1.1 0.8-1.4 Activated partial thromboplastin time (aPTT) in platelet poor plasma bycoagulation assay - 03/30/17 00:00 Activated partial thromboplastin time (aPTT) in platelet poor plasma bycoagulation assay 29 s 24-35 Blood lactic acid measurement (moles/volume) - 03/30/17 00:00 Blood lactic acid measurement (moles/volume) 2.88 mmol/L 0.50-2.00 Comprehensive metabolic panel - 03/30/17 00:00 Serum or plasma sodium measurement (moles/volume) 135 mmol/L 135-145 Serum or plasma potassium measurement (moles/volume) 4.4 mmol/L 3.6-5.0 Serum or plasma chloride measurement (moles/volume) 102 mmol/L 98-107 Carbon dioxide 21 mmol/L 21-32 Serum or plasma anion gap determination (moles/volume) 12 mmol/L 5-14 Serum or plasma urea nitrogen measurement (mass/volume) 45 mg/dL 7-18 Serum or plasma creatinine measurement (mass/volume) 2.73 mg/dL 0.60-1.30 Serum or plasma urea nitrogen/creatinine mass ratio 16 NRG Serum or plasma creatinine measurement with calculation of estimated glomerular filtration rate 22 NRG Serum or plasma glucose measurement (mass/volume) 150 mg/dL 70-105 Serum or plasma calcium measurement (mass/volume) 9.6 mg/dL 8.5-10.1 Serum or plasma total bilirubin measurement (mass/volume) 0.5 mg/dL 0.1-1.0 Serum or plasma alkaline phosphatase measurement (enzymatic activity/volume) 87 U/L 40-136 Serum or plasma aspartate aminotransferase measurement (enzymatic activity/ volume) 17 U/L 5-34 Serum or plasma alanine aminotransferase measurement (enzymatic activity/volume ) 11 U/L 0-55 Serum or plasma protein measurement (mass/volume) 7.1 g/dL 6.4-8.2 Serum or plasma albumin measurement (mass/volume) 3.8 g/dL 3.2-4.5 Bacterial blood culture - 03/30/17 00:00 FREE TEXT EXTERNAL ENTEROCOCCUS FAECALIS SENSITIVITY NRG QUANTITY OF GROWTH Isolated NRG Bacterial blood culture [id number] NR FREE TEXT ENTRY 2 REPORTED 04/01 ON BLOOD CULTURE [id number] NRG Influenza virus A and B antigen detection - 03/30/17 00:19 FLU RESULT NEGATIVE FOR INFLUENZA A AND B ANTIGENS BY IA NRG Bacterial blood culture - 03/30/17 00:28 [place] [address], 17 NRG QUANTITY OF GROWTH Isolated NRG Bacterial blood culture [id number] [facility] Bacterial susceptibility panel - 03/30/17 00:28 Gentamicin susceptibility test by minimum inhibitory concentration S NRG Erythromycin susceptibility test by minimum inhibitory concentration <= NRG Vancomycin susceptibility test by minimum inhibitory concentration S NRG Ampicillin susceptibility test by minimum inhibitory concentration < = NRG Linezolid susceptibility test by minimum inhibitory concentration 2 NRG Complete urinalysis with reflex to culture - 03/30/17 00:35 Urine color determination YELLOW NRG Urine clarity determination VERY CLOUDY NRG Urine pH measurement by test strip 6 5-9 Specific gravity of urine by test strip 1.020 1.016- 1.022 Urine protein assay by test strip, semi-quantitative 2+ NEGATIVE Urine glucose detection by automated test strip 1+ NEGATIVE Erythrocytes detection in urine sediment by light microscopy 5+ NEGATIVE Urine ketones detection by automated test strip NEGATIVE NEGATIVE Urine nitrite detection by test strip NEGATIVE NEGATIVE Urine total bilirubin detection by test strip NEGATIVE NEGATIVE Urine urobilinogen measurement by automated test strip (mass/volume) NORMAL NORMAL Urine leukocyte esterase detection by dipstick 3+ NEGATIVE Automated urine sediment erythrocyte count by microscopy (number/high power field) [HPF] NRG Automated urine sediment leukocyte count by microscopy (number/high power field ) TNTC NRG Bacteria detection in urine sediment by light microscopy MODERATE NRG Squamous epithelial cells detection in urine sediment by light microscopy 0-2 NRG Crystals detection in urine sediment by light microscopy NONE NRG Casts detection in urine sediment by light microscopy NONE NRG Mucus detection in urine sediment by light microscopy SMALL NRG Complete urinalysis with reflex to culture YES NRG Bacterial urine culture - 03/30/17 00:35 Bacterial urine culture [id number] NRG COLONY COUNT <10,000 NRG FTX;REPORTABLE SENSITIVITY REPORTED 03/31 07:15 NRG FREE TEXT ENTRY 2 UNUSUAL RESISTANCE PATTERN DETECTED; NRG FREE TEXT ENTRY 3 ESBL IDENTIFIED NRG Bacterial susceptibility panel - 03/30/17 00:35 Gentamicin susceptibility test by minimum inhibitory concentration S NRG Vancomycin susceptibility test by minimum inhibitory concentration S NRG Levofloxacin susceptibility test by minimum inhibitory concentration 1 NRG Tetracycline susceptibility test by minimum inhibitory concentration >= NRG Ampicillin susceptibility test by minimum inhibitory concentration < = NRG Nitrofurantoin susceptibility test by minimum inhibitory concentration <= NRG Bacterial susceptibility panel - 03/30/17 00:35 Gentamicin susceptibility test by minimum inhibitory concentration < = NRG Trimethoprim/sulfamethoxazole susceptibility test by minimum inhibitoryconcentration R NRG Ampicillin susceptibility test by minimum inhibitory concentration > = NRG Tobramycin susceptibility test by minimum inhibitory concentration < = NRG Cefazolin susceptibility test by minimum inhibitory concentration > = NRG Ceftriaxone susceptibility test by minimum inhibitory concentration R NRG Ampicillin/sulbactam susceptibility test by minimum inhibitory concentration I NRG Ciprofloxacin susceptibility test by minimum inhibitory concentration >= NRG Meropenem susceptibility test by minimum inhibitory concentration < = NRG Nitrofurantoin susceptibility test by minimum inhibitory concentration <= NRG Aztreonam susceptibility test by minimum inhibitory concentration R NRG Extended spectrum beta lactamase (ESBL) producing bacteria susceptibility test by minimum inhibitory concentration + NRG Serum or plasma lactate measurement (moles/volume) - 03/30/17 01:56 Serum or plasma lactate measurement (moles/volume) 1.46 mmol/L 0.50-2.00 Complete blood count (CBC) with automated white blood cell (WBC) differential - 03/30/17 04:45 Blood leukocytes automated count (number/volume) 14.2 10*3/uL 4.3-11.0 Blood erythrocytes automated count (number/volume) 3.24 10*6/uL 4.35-5.85 Venous blood hemoglobin measurement (mass/volume) 10.3 g/dL 13.3-17.7 Blood hematocrit (volume fraction) 31 % 40-54 Automated erythrocyte mean corpuscular volume 97 [foz_us] 80-99 Automated erythrocyte mean corpuscular hemoglobin (mass per erythrocyte) 32 pg 25-34 Automated erythrocyte mean corpuscular hemoglobin concentration measurement ( mass/volume) 33 g/dL 32-36 Automated erythrocyte distribution width ratio 14.3 % 10.0-14.5 Automated blood platelet count (count/volume) 146 10*3/uL 130-400 Automated blood platelet mean volume measurement 10.9 [foz_us] 7.4-10.4 Automated blood neutrophils/100 leukocytes 83 % 42-75 Automated blood lymphocytes/100 leukocytes 3 % 12-44 Blood monocytes/100 leukocytes 14 % 0-12 Automated blood eosinophils/100 leukocytes 0 % 0-10 Automated blood basophils/100 leukocytes 0 % 0-10 Blood neutrophils automated count (number/volume) 11.8 10*3 1.8-7.8 Blood lymphocytes automated count (number/volume) 0.5 10*3 1.0-4.0 Blood monocytes automated count (number/volume) 1.9 10*3 0.0-1.0 Automated eosinophil count 0.0 10*3/uL 0.0-0.3 Automated blood basophil count (count/volume) 0.0 10*3/uL 0.0-0.1 Comprehensive metabolic panel - 03/30/17 04:45 Serum or plasma sodium measurement (moles/volume) 136 mmol/L 135-145 Serum or plasma potassium measurement (moles/volume) 4.0 mmol/L 3.6-5.0 Serum or plasma chloride measurement (moles/volume) 107 mmol/L 98-107 Carbon dioxide 21 mmol/L 21-32 Serum or plasma anion gap determination (moles/volume) 8 mmol/L 5-14 Serum or plasma urea nitrogen measurement (mass/volume) 40 mg/dL 7-18 Serum or plasma creatinine measurement (mass/volume) 2.54 mg/dL 0.60-1.30 Serum or plasma urea nitrogen/creatinine mass ratio 16 NRG Serum or plasma creatinine measurement with calculation of estimated glomerular filtration rate 24 NRG Serum or plasma glucose measurement (mass/volume) 122 mg/dL 70-105 Serum or plasma calcium measurement (mass/volume) 8.5 mg/dL 8.5-10.1 Serum or plasma total bilirubin measurement (mass/volume) 0.3 mg/dL 0.1-1.0 Serum or plasma alkaline phosphatase measurement (enzymatic activity/volume) 69 U/L 40-136 Serum or plasma aspartate aminotransferase measurement (enzymatic activity/ volume) 18 U/L 5-34 Serum or plasma alanine aminotransferase measurement (enzymatic activity/volume ) 9 U/L 0-55 Serum or plasma protein measurement (mass/volume) 5.7 g/dL 6.4-8.2 Serum or plasma albumin measurement (mass/volume) 3.1 g/dL 3.2-4.5 Serum or plasma phosphate measurement (mass/volume) - 03/30/17 04:45 Serum or plasma phosphate measurement (mass/volume) 2.1 mg/dL 2.3-4.7 Magnesium - 03/30/17 04:45 Magnesium 1.9 mg/dL 1.8-2.4 Bacteria identification in isolate by anaerobe culture - 03/30/17 15:45 Bacteria identification in isolate by anaerobe culture NOANA NRG Gram stain microscopy - 03/30/17 15:45 GRAM STAIN RESULT FEW WBC'S, NO BACTERIA OBSERVED NRG Bacterial body fluid culture - 03/30/17 15:45 FREE TEXT EXTERNAL REFER TO BLOOD CULTURE [id number] NRG QUANTITY OF GROWTH Moderate Growth NR Bacterial body fluid culture [id number] NR Complete blood count (CBC) with automated white blood cell (WBC) differential - 03/31/17 04:50 Blood leukocytes automated count (number/volume) 10.5 10*3/uL 4.3-11.0 Blood erythrocytes automated count (number/volume) 2.99 10*6/uL 4.35-5.85 Venous blood hemoglobin measurement (mass/volume) 9.5 g/dL 13.3-17.7 Blood hematocrit (volume fraction) 30 % 40-54 Automated erythrocyte mean corpuscular volume 99 [foz_us] 80-99 Automated erythrocyte mean corpuscular hemoglobin (mass per erythrocyte) 32 pg 25-34 Automated erythrocyte mean corpuscular hemoglobin concentration measurement ( mass/volume) 32 g/dL 32-36 Automated erythrocyte distribution width ratio 14.7 % 10.0-14.5 Automated blood platelet count (count/volume) 142 10*3/uL 130-400 Automated blood platelet mean volume measurement 10.9 [foz_us] 7.4-10.4 Automated blood neutrophils/100 leukocytes 90 % 42-75 Automated blood lymphocytes/100 leukocytes 4 % 12-44 Blood monocytes/100 leukocytes 6 % 0-12 Automated blood eosinophils/100 leukocytes 0 % 0-10 Automated blood basophils/100 leukocytes 0 % 0-10 Blood neutrophils automated count (number/volume) 9.5 10*3 1.8-7.8 Blood lymphocytes automated count (number/volume) 0.4 10*3 1.0-4.0 Blood monocytes automated count (number/volume) 0.7 10*3 0.0-1.0 Automated eosinophil count 0.0 10*3/uL 0.0-0.3 Automated blood basophil count (count/volume) 0.0 10*3/uL 0.0-0.1 Comprehensive metabolic panel - 03/31/17 04:50 Serum or plasma sodium measurement (moles/volume) 141 mmol/L 135-145 Serum or plasma potassium measurement (moles/volume) 4.4 mmol/L 3.6-5.0 Serum or plasma chloride measurement (moles/volume) 115 mmol/L 98-107 Carbon dioxide 18 mmol/L 21-32 Serum or plasma anion gap determination (moles/volume) 8 mmol/L 5-14 Serum or plasma urea nitrogen measurement (mass/volume) 31 mg/dL 7-18 Serum or plasma creatinine measurement (mass/volume) 1.75 mg/dL 0.60-1.30 Serum or plasma urea nitrogen/creatinine mass ratio 18 NRG Serum or plasma creatinine measurement with calculation of estimated glomerular filtration rate 37 NRG Serum or plasma glucose measurement (mass/volume) 178 mg/dL 70-105 Serum or plasma calcium measurement (mass/volume) 8.3 mg/dL 8.5-10.1 Serum or plasma total bilirubin measurement (mass/volume) 0.2 mg/dL 0.1-1.0 Serum or plasma alkaline phosphatase measurement (enzymatic activity/volume) 63 U/L 40-136 Serum or plasma aspartate aminotransferase measurement (enzymatic activity/ volume) 17 U/L 5-34 Serum or plasma alanine aminotransferase measurement (enzymatic activity/volume ) 13 U/L 0-55 Serum or plasma protein measurement (mass/volume) 5.1 g/dL 6.4-8.2 Serum or plasma albumin measurement (mass/volume) 2.9 g/dL 3.2-4.5 Serum or plasma phosphate measurement (mass/volume) - 03/31/17 04:50 Serum or plasma phosphate measurement (mass/volume) 2.8 mg/dL 2.3-4.7 Magnesium - 03/31/17 04:50 Magnesium 2.2 mg/dL 1.8-2.4 Complete blood count (CBC) with automated white blood cell (WBC) differential - 04/01/17 05:00 Blood leukocytes automated count (number/volume) 8.1 10*3/uL 4.3-11.0 Blood erythrocytes automated count (number/volume) 3.01 10*6/uL 4.35-5.85 Venous blood hemoglobin measurement (mass/volume) 9.6 g/dL 13.3-17.7 Blood hematocrit (volume fraction) 29 % 40-54 Automated erythrocyte mean corpuscular volume 97 [foz_us] 80-99 Automated erythrocyte mean corpuscular hemoglobin (mass per erythrocyte) 32 pg 25-34 Automated erythrocyte mean corpuscular hemoglobin concentration measurement ( mass/volume) 33 g/dL 32-36 Automated erythrocyte distribution width ratio 14.8 % 10.0-14.5 Automated blood platelet count (count/volume) 184 10*3/uL 130-400 Automated blood platelet mean volume measurement 11.0 [foz_us] 7.4-10.4 Automated blood neutrophils/100 leukocytes 78 % 42-75 Automated blood lymphocytes/100 leukocytes 11 % 12-44 Blood monocytes/100 leukocytes 12 % 0-12 Automated blood eosinophils/100 leukocytes 0 % 0-10 Automated blood basophils/100 leukocytes 0 % 0-10 Blood neutrophils automated count (number/volume) 6.3 10*3 1.8-7.8 Blood lymphocytes automated count (number/volume) 0.9 10*3 1.0-4.0 Blood monocytes automated count (number/volume) 1.0 10*3 0.0-1.0 Automated eosinophil count 0.0 10*3/uL 0.0-0.3 Automated blood basophil count (count/volume) 0.0 10*3/uL 0.0-0.1 Comprehensive metabolic panel - 04/01/17 05:00 Serum or plasma sodium measurement (moles/volume) 140 mmol/L 135-145 Serum or plasma potassium measurement (moles/volume) 4.2 mmol/L 3.6-5.0 Serum or plasma chloride measurement (moles/volume) 115 mmol/L 98-107 Carbon dioxide 20 mmol/L 21-32 Serum or plasma anion gap determination (moles/volume) 5 mmol/L 5-14 Serum or plasma urea nitrogen measurement (mass/volume) 31 mg/dL 7-18 Serum or plasma creatinine measurement (mass/volume) 1.48 mg/dL 0.60-1.30 Serum or plasma urea nitrogen/creatinine mass ratio 21 NRG Serum or plasma creatinine measurement with calculation of estimated glomerular filtration rate 45 NRG Serum or plasma glucose measurement (mass/volume) 96 mg/dL 70-105 Serum or plasma calcium measurement (mass/volume) 8.5 mg/dL 8.5-10.1 Serum or plasma total bilirubin measurement (mass/volume) 0.1 mg/dL 0.1-1.0 Serum or plasma alkaline phosphatase measurement (enzymatic activity/volume) 58 U/L 40-136 Serum or plasma aspartate aminotransferase measurement (enzymatic activity/ volume) 22 U/L 5-34 Serum or plasma alanine aminotransferase measurement (enzymatic activity/volume ) 18 U/L 0-55 Serum or plasma protein measurement (mass/volume) 5.3 g/dL 6.4-8.2 Serum or plasma albumin measurement (mass/volume) 2.8 g/dL 3.2-4.5 Serum or plasma phosphate measurement (mass/volume) - 04/01/17 05:00 Serum or plasma phosphate measurement (mass/volume) 1.8 mg/dL 2.3-4.7 Magnesium - 04/01/17 05:00 Magnesium 1.9 mg/dL 1.8-2.4 Complete blood count (CBC) with automated white blood cell (WBC) differential - 04/03/17 06:25 Blood leukocytes automated count (number/volume) 8.1 10*3/uL 4.3-11.0 Blood erythrocytes automated count (number/volume) 3.75 10*6/uL 4.35-5.85 Venous blood hemoglobin measurement (mass/volume) 11.8 g/dL 13.3-17.7 Blood hematocrit (volume fraction) 36 % 40-54 Automated erythrocyte mean corpuscular volume 96 [foz_us] 80-99 Automated erythrocyte mean corpuscular hemoglobin (mass per erythrocyte) 31 pg 25-34 Automated erythrocyte mean corpuscular hemoglobin concentration measurement ( mass/volume) 33 g/dL 32-36 Automated erythrocyte distribution width ratio 14.8 % 10.0-14.5 Automated blood platelet count (count/volume) 284 10*3/uL 130-400 Automated blood platelet mean volume measurement 10.4 [foz_us] 7.4-10.4 Automated blood neutrophils/100 leukocytes 59 % 42-75 Automated blood lymphocytes/100 leukocytes 21 % 12-44 Blood monocytes/100 leukocytes 18 % 0-12 Automated blood eosinophils/100 leukocytes 1 % 0-10 Automated blood basophils/100 leukocytes 1 % 0-10 Blood neutrophils automated count (number/volume) 4.7 10*3 1.8-7.8 Blood lymphocytes automated count (number/volume) 1.7 10*3 1.0-4.0 Blood monocytes automated count (number/volume) 1.5 10*3 0.0-1.0 Automated eosinophil count 0.1 10*3/uL 0.0-0.3 Automated blood basophil count (count/volume) 0.1 10*3/uL 0.0-0.1 Comprehensive metabolic panel - 04/03/17 06:25 Serum or plasma sodium measurement (moles/volume) 142 mmol/L 135-145 Serum or plasma potassium measurement (moles/volume) 3.6 mmol/L 3.6-5.0 Serum or plasma chloride measurement (moles/volume) 106 mmol/L 98-107 Carbon dioxide 25 mmol/L 21-32 Serum or plasma anion gap determination (moles/volume) 11 mmol/L 5-14 Serum or plasma urea nitrogen measurement (mass/volume) 31 mg/dL 7-18 Serum or plasma creatinine measurement (mass/volume) 1.52 mg/dL 0.60-1.30 Serum or plasma urea nitrogen/creatinine mass ratio 20 NRG Serum or plasma creatinine measurement with calculation of estimated glomerular filtration rate 44 NRG Serum or plasma glucose measurement (mass/volume) 98 mg/dL 70-105 Serum or plasma calcium measurement (mass/volume) 9.2 mg/dL 8.5-10.1 Serum or plasma total bilirubin measurement (mass/volume) 0.6 mg/dL 0.1-1.0 Serum or plasma alkaline phosphatase measurement (enzymatic activity/volume) 67 U/L 40-136 Serum or plasma aspartate aminotransferase measurement (enzymatic activity/ volume) 19 U/L 5-34 Serum or plasma alanine aminotransferase measurement (enzymatic activity/volume ) 17 U/L 0-55 Serum or plasma protein measurement (mass/volume) 6.4 g/dL 6.4-8.2 Serum or plasma albumin measurement (mass/volume) 3.3 g/dL 3.2-4.5 Methicillin resistant Staphylococcus aureus (MRSA) screening culture - 00:00 Methicillin resistant Staphylococcus aureus (MRSA) screening culture NEG NRG Methicillin resistant Staphylococcus aureus (MRSA) screening culture - 10:06 Methicillin resistant Staphylococcus aureus (MRSA) screening culture NEG NRG Complete urinalysis with reflex to culture - 05/10/17 14:45 Urine color determination YELLOW NRG Urine clarity determination SLIGHTLY CLOUDY NRG Urine pH measurement by test strip 6 5-9 Specific gravity of urine by test strip 1.015 1.016- 1.022 Urine protein assay by test strip, semi-quantitative 3+ NEGATIVE Urine glucose detection by automated test strip 2+ NEGATIVE Erythrocytes detection in urine sediment by light microscopy 3+ NEGATIVE Urine ketones detection by automated test strip NEGATIVE NEGATIVE Urine nitrite detection by test strip POSITIVE NEGATIVE Urine total bilirubin detection by test strip NEGATIVE NEGATIVE Urine urobilinogen measurement by automated test strip (mass/volume) NORMAL NORMAL Urine leukocyte esterase detection by dipstick 3+ NEGATIVE Automated urine sediment erythrocyte count by microscopy (number/high power field) [HPF] NRG Automated urine sediment leukocyte count by microscopy (number/high power field ) TNTC NRG Bacteria detection in urine sediment by light microscopy 3+ NRG Crystals detection in urine sediment by light microscopy NONE NRG Casts detection in urine sediment by light microscopy NONE NRG Mucus detection in urine sediment by light microscopy NEGATIVE NRG Complete urinalysis with reflex to culture YES NRG Complete urinalysis with reflex to culture - 05/10/17 14:45 Urine color determination YELLOW NRG Urine clarity determination VERY CLOUDY NRG Urine pH measurement by test strip 6 5-9 Specific gravity of urine by test strip 1.015 1.016- 1.022 Urine protein assay by test strip, semi-quantitative 3+ NEGATIVE Urine glucose detection by automated test strip 2+ NEGATIVE Erythrocytes detection in urine sediment by light microscopy 4+ NEGATIVE Urine ketones detection by automated test strip NEGATIVE NEGATIVE Urine nitrite detection by test strip POSITIVE NEGATIVE Urine total bilirubin detection by test strip NEGATIVE NEGATIVE Urine urobilinogen measurement by automated test strip (mass/volume) NORMAL NORMAL Urine leukocyte esterase detection by dipstick 3+ NEGATIVE Automated urine sediment erythrocyte count by microscopy (number/high power field) [HPF] NRG Automated urine sediment leukocyte count by microscopy (number/high power field ) TNTC NRG Bacteria detection in urine sediment by light microscopy LARGE NRG Crystals detection in urine sediment by light microscopy NONE NRG Casts detection in urine sediment by light microscopy NONE NRG Mucus detection in urine sediment by light microscopy NEGATIVE NRG Complete urinalysis with reflex to culture YES NRG Bacterial urine culture - 05/10/17 14:45 Bacterial urine culture [id number] NRG COLONY COUNT 10,000/ML - 100,000/ML NRG FTX;REPORTABLE SENSITIVITIES REPORTED 05/12/17 9:40 NRG Bacterial urine culture - 05/10/17 14:45 Bacterial urine culture [id number] NRG COLONY COUNT <10,000 NRG FTX;REPORTABLE REFER TO SENSITIVITIES ON URINE NRG FREE TEXT ENTRY 2 CULTURE M482. [facility] Bacterial susceptibility panel - 05/10/17 14:45 Gentamicin susceptibility test by minimum inhibitory concentration < = NRG Trimethoprim/sulfamethoxazole susceptibility test by minimum inhibitoryconcentration R NRG Ampicillin susceptibility test by minimum inhibitory concentration > = NRG Tobramycin susceptibility test by minimum inhibitory concentration < = NRG Cefazolin susceptibility test by minimum inhibitory concentration > = NRG Ceftriaxone susceptibility test by minimum inhibitory concentration I NRG Ampicillin/sulbactam susceptibility test by minimum inhibitory concentration R NRG Ciprofloxacin susceptibility test by minimum inhibitory concentration >= NRG Meropenem susceptibility test by minimum inhibitory concentration < = NRG Nitrofurantoin susceptibility test by minimum inhibitory concentration <= NRG Aztreonam susceptibility test by minimum inhibitory concentration S NRG Extended spectrum beta lactamase (ESBL) producing bacteria susceptibility test by minimum inhibitory concentration - [facility] Bacterial susceptibility panel - 05/10/17 14:45 Gentamicin susceptibility test by minimum inhibitory concentration S NRG Vancomycin susceptibility test by minimum inhibitory concentration < = NRG Levofloxacin susceptibility test by minimum inhibitory concentration 1 NRG Tetracycline susceptibility test by minimum inhibitory concentration >= NRG Ampicillin susceptibility test by minimum inhibitory concentration < = NRG Nitrofurantoin susceptibility test by minimum inhibitory concentration <= NRG Linezolid susceptibility test by minimum inhibitory concentration 2 [facility] Bacterial susceptibility panel - 05/10/17 14:45 Gentamicin susceptibility test by minimum inhibitory concentration < = NRG Tobramycin susceptibility test by minimum inhibitory concentration < = NRG Piperacillin/tazobactam susceptibility test by minimum inhibitory concentration S NRG Ciprofloxacin susceptibility test by minimum inhibitory concentration <= NRG Meropenem susceptibility test by minimum inhibitory concentration 1 NRG Cefepime susceptibility test by minimum inhibitory concentration 8 NRG Encounters ACCT No. Visit Date/Time Discharge Status Pt. Type Provider Facility Loc./Unit Complaint [id number] 05/11/2017 08:00:00 05/11/2017 23:59:59 CLS Preadmit BRONWYN MAZARIEGOS MD [facility] RIGHT URETERAL STONE [id number] 05/10/2017 14:09:00 05/10/2017 23:59:59 CLS Outpatient BRONWYN MAZARIEGOS MD Via [facility] LAB UTI [id number] 05/09/2017 07:28:00 05/09/2017 23:59:59 CLS Outpatient BRONWYN MAZARIEGOS MD [facility] RAD RENAL STONE [id number] 05/09/2017 10:30:00 05/09/2017 10:30:00 CAN Preadmit BRONWYN MAZARIEGOS MD [facility] PREOP RIGHT ESWL [id number] 04/19/2017 09:23:00 04/19/2017 14:18:00 DIS Outpatient BRONWYN MAZARIEGOS MD [facility] RIGHT KIDNEY STONE [id number] 04/18/2017 13:10:00 04/18/2017 23:59:59 CLS Outpatient BRONWYN MAZARIEGOS MD [facility] RAD [address]77 [id number] 04/18/2017 05:42:00 04/18/2017 23:59:59 CLS Outpatient BRONWYN MAZARIEGOS MD [facility] PREOP RIGHT ESWL [id number] 04/01/2017 12:45:00 04/07/2017 15:09:00 DIS Outpatient ALLYSON KAM MD [facility] IRF DEBILITY [id number] 04/06/2017 14:13:00 04/06/2017 23:59:59 CLS Preadmit [facility] [id number] 03/30/2017 00:58:00 04/01/2017 13:25:00 DIS Inpatient NERI SAMPSON, DRE Jane [facility] 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,UTI,STAGE 1 DECUBITUS ULCER, [id number] 03/29/2017 14:13:00 03/29/2017 23:59:59 CLS Outpatient JESÚS ALFARO GAS DERRICK OPERATOR [facility] RAD CALCULUS OF KIDNEY [id number] 03/29/2017 11:00:00 03/29/2017 23:59:59 CLS Outpatient JESÚS ALFARO GAS DERRICK OPERATOR [facility] RAD M54.5 [id number] 02/14/2017 08:27:00 02/14/2017 23:59:59 CLS Outpatient STEF DICKENS [facility] CARD AF [id number] 12/09/2016 12:44:00 12/09/2016 23:59:59 CLS Outpatient TANYA BARAJAS DO [facility] RAD M54.16 [id number] 11/24/2016 10:02:00 11/24/2016 23:59:59 CLS Outpatient PHILLIP HERNADEZ MD [facility] RAD M48.04 [id number] 09/15/2016 14:51:00 09/15/2016 23:59:59 CLS Outpatient STEF DICKENS [facility] CARD AF I48.0 [id number] 03/17/2016 08:31:00 03/17/2016 23:59:59 CLS Outpatient DYLON HERNANDEZ MD [facility] CATH PAF,PALPITATION,PVC'S [id number] 09/26/2015 10:36:00 10/09/2015 11:55:00 DIS Outpatient SAUNDRA LUIS [facility] REHAB S/P L REVERSE TSR; ULNAR NERVE TRANSPOSITION [id number] 10/06/2015 08:30:00 10/06/2015 23:59:59 CLS Preadmit DYLON HERNANDEZ MD [facility] CARD LAFB,CAD,AFIB [id number] 07/07/2015 08:12:00 10/05/2015 00:01:00 DIS Outpatient DYLON HERNANDEZ MD [facility] CARD LAFB,CAD,AFIB [id number] 07/03/2015 15:05:00 07/03/2015 23:59:59 CLS Outpatient DYLON HERNANDEZ MD [facility] CARD AF,YAW,LASB [id number] 05/19/2015 10:00:00 05/19/2015 15:13:00 DIS Outpatient ALBERTINA AGUILAR MD [facility] REHAB S/P L REVERSE TOTAL SHOULDER REPLACEMENT [id number] 04/19/2015 16:34:00 04/19/2015 18:29:00 DIS Emergency MERLINE ERICKSON MD [facility] ER AFIB [id number] 01/30/2015 01:06:00 01/30/2015 23:59:59 CLS Preadmit DARBY ROCHE MD [facility] REHAB [id number] 01/24/2015 13:01:00 01/29/2015 00:01:00 DIS Outpatient DARBY ROCHE MD [facility] REHAB LT REVERSE TOTAL SHOULDER; LT ULNAR NEURITIS [id number] 02/28/2014 11:40:00 02/28/2014 23:59:59 CLS Outpatient TEETEE CALDERA MD [facility] CARD ATYPICAL CP [id number] 01/16/2014 07:20:00 01/16/2014 23:59:59 CLS Outpatient JOAN SPIVEY MD [facility] PREOP GERD [id number] 11/05/2013 14:16:00 11/05/2013 15:29:00 DIS Outpatient TANYA BARAJAS DO [facility] REHAB LUMBAR RADICULOPATHY;SPONDYLOSIS [id number] 07/05/2013 13:05:00 07/11/2013 08:47:00 DIS Outpatient PHILLIP HERNADEZ MD [facility] REHAB S/P L2-3 X STOP HEMILAMINECTOMY [id number] 06/28/2013 06:26:00 06/28/2013 09:25:00 DIS Outpatient JOAN SPIVEY MD [facility] GERD [id number] 06/27/2013 07:12:00 06/27/2013 23:59:59 CLS Outpatient JOAN SPIVEY MD [facility] PREOP GERD [id number] 03/26/2013 08:43:00 03/26/2013 23:59:59 CLS Outpatient JOAN SPIVEY MD [facility] RAD HIATAL HERNIA, DYSPHAGIA [id number] 03/23/2013 06:29:00 03/23/2013 09:50:00 DIS Outpatient JOAN SPIVEY MD [facility] GERD [id number] 03/21/2013 07:27:00 03/21/2013 23:59:59 CLS Outpatient JOAN SPIVEY MD [facility] PREOP GERD [id number] 07/03/2015 15:04:00 Document Registration [id number] 07/03/2015 15:04:00 Document Registration [id number] 07/03/2015 15:03:00 Document Registration [id number] 08/01/2012 07:50:00 Document Registration [id number] 07/12/2012 08:05:00 Document Registration [id number] 04/19/2012 10:36:00 Document Registration [id number] 08/21/2010 16:41:00 Document Registration [id number] 05/30/2010 09:40:00 Document Registration [id number] 05/28/2010 07:39:00 Document Registration [id number] 05/21/2010 06:34:00 Document Registration [id number] 04/07/2010 22:20:00 Document Registration [id number] 01/23/2010 08:44:00 Document Registration
--- NOTE | 2017-05-16 10:04 | ED GU-Male ---
General Chief Complaint: -Male Stated Complaint: DRAIN TUBE CAME LOOSE Nursing Triage Note: PATENT STATES THAT HE HAS A TUBE PLACED IN HIS RIGHT KIDNEY DUE TO A KIDNEY STONE. IT HAS SLID OUT SOMEWHAT AND HE IS HAVING SOME LEAKING. STILL ABLE TO URINATE. NO OTHER SYMPTOMS. Source: patient, family (son) Exam Limitations: no limitations History of Present Illness Time seen by provider: 09:49 Initial Comments Patient presents to ER by private conveyance with chief complaint that late last night he felt the nephrostomy tube that has placed about a month ago by Dr. Nunez, urology had become pulled away from his back right side. The tube was placed because he had a large obstructing renal calculi that haven't lasted at least a couple times. He had been sent up to [facility] to see about having the tube removed about 6 days ago and they told him he had a still a urinary tract infection put him on Cipro and then to 3 days ago called and told him to take Macrobid in addition to the Cipro. The patient says that his urine has cleared up and not been so cloudy in the last couple days since starting the Macrobid on top of the Cipro. He has no fevers, chills, malaise, nausea, abdominal pain. He is having some pain around the site of the nephrostomy tube if he uses to Tylenol which takes the pain down to verbal level. Says he's not had to use the hydrocodone yet. He is not having any discharge however the tube when it became displaced last night started draining a lot of urine and soiled his clothes so he is found some depends and put those on to help keep his clothes and skin dry. Allergies and Home Medications Allergies Coded Allergies: Penicillins (Verified Allergy, Severe, Anaphylaxis (pt tolerates Ceftriaxone), 04/19/17) iodine (Verified Allergy, Unknown, 09/01/06) Home Medications Baclofen 10 Mg Tablet, 10 MG PO TID PRN for MUSCLE SPASMS, (Reported) Fenofibrate 160 Mg Tablet, 160 MG PO HS, (Reported) Hydrocodone/Acetaminophen 1 Each Tablet, 1-2 EACH PO Q4H PRN for PAIN, #30 Ref 0 Prescribed by: ANNIE ROBBINS on 04/19/17 1332 Hydrocortisone 59 Ml Lotion, TOP DAILY PRN for SORE PAIN, (Reported) Metoprolol Succinate 25 Mg Tab.er.24h, 25 MG PO HS, (Reported) Nitrofurantoin Macrocrystal 100 Mg Capsule, 100 MG PO BID for 14 Days Prescribed by: ANNIE ROBBINS on 04/19/17 1332 Omeprazole 20 Mg Capsule.dr, 20 MG PO DAILY PRN for HEARTBURN, (Reported) Tamsulosin HCl 0.4 Mg Cap, 0.4 MG PO DAILY, #30 Prescribed by: ANNIE ROBBINS on 04/19/17 1332 Constitutional: No chills, No diaphoresis, No fever Respiratory: No cough, No short of breath Cardiovascular: No chest pain, No palpitations Gastrointestinal: see HPI, No constipation, No diarrhea, No nausea, No vomiting Genitourinary: denies burning, denies discharge, denies dysuria, flank pain Musculoskeletal: No back pain, No joint pain Skin: No pruritus, No rash Past Wonpgll-Xhcytq-Ygxtou Hx Patient Social History Alcohol Use: Denies Use Recreational Drug Use: No Smoking Status: Never a Smoker 2nd Hand Smoke Exposure: No Recent Foreign Travel: No Contact w/Someone Who Travel: No Recent Infectious Disease Expo: No Recent Hopitalizations: Yes Immunizations Up To Date PED Vaccines UTD: No Date of Pneumonia Vaccine: Jun 28, 2006 Date of Influenza Vaccine: Jan 30, 2017 Seasonal Allergies Seasonal Allergies: No Surgeries History of Surgeries: Yes Surgeries: Orthopedic Respiratory History of Respiratory Disorde: No Cardiovascular History of Cardiac Disorders: Yes Cardiac Disorders: Atrial Fibrillation, High Cholesterol, Hypertension Neurological History of Neurological Disord: Yes Neurological Disorders: Neuropathy Reproductive System Hx Reproductive Disorders: Yes Genitourinary History of Genitourinary Disor: Yes (uti-current) Genitourinary Disorders: Benign Prostatic Hyperpl, Bladder Infection, Kidney Stones Gastrointestinal History of Gastrointestinal Di: Yes Gastrointestinal Disorders: Gastroesophageal Reflux, Esophagitis, Hiatal Hernia , Ulcer Musculoskeletal History of Musculoskeletal Dis: Yes Musculoskeletal Disorders: Arthritis, Chronic Back Pain Endocrine History of Endocrine Disorders: No HEENT History of HEENT Disorders: No Cancer History of Cancer: Yes Cancer: Skin Psychosocial History of Psychiatric Problem: No Integumentary History of Skin or Integumenta: No Blood Transfusions History of Blood Disorders: No Family Medical History Significant Family History: No Pertinent Family Hx Family Medial History: Patient reports no known family medical history. Physical Exam Vital Signs Vital Sign - Last 12Hours 05/16/17 09:42 Temp 98.4 Pulse 76 Resp 18 B/P (MAP) 140/80 (100) Pulse Ox 95 O2 Delivery Room Air Capillary Refill : Less Than 3 Seconds General Appearance: WD/WN, no apparent distress HEENT: PERRL/EOMI, pharynx normal Cardiovascular: normal peripheral pulses, regular rate, rhythm Respiratory: chest non-tender, lungs clear Gastrointestinal: normal bowel sounds, non tender, soft Extremities: normal inspection, normal capillary refill Neurologic/Psychiatric: alert, oriented x 3 Skin: other (right posterior flank has a nephrostomy tube that looks like it and pulled about 6 cm from the blue baseplate that used to about the skin. There is no discharge or drainage. There is mild nontender erythema without induration around the percutaneous nephrostomy tube site) Laceration Repair : Wound Location: Trunk (right flank percutaneous neprhostomy) Wound Length (cm): 0.5 Wound Explored: surface was cleaned with chlorhexidine soap water and then soaked with Betadine Betadine Prep?: Yes Suture: Ethlion Suture Size: 2-0 Number of Sutures: 1 Sterile Dressing Applied?: Yes Progress Old dressing was removed and the surface was prepped with pleuritic sitting soap water as well as Betadine. The nephrostomy tube was then stitched in place with 2-0 Ethilon and the tube was still patent after a stitch was placed with 3 wraps around the tube. Dressing was then placed by nursing with the top 3 sides taped down in the inferior portion open per urology. A loop was taped to give the patient some warning if he's pulling on it underneath the dressing. Patient tolerated procedure well. The leg bag was then replaced as it seemed to be leaking. Progress/Results/Core Measures Suspected Sepsis Recent Fever Within 48 Hours: No Infection Criteria Present: None New/Unexplained Altered Menta: No Sepsis Screen: No Definite Risk Sepsis Diagnosis: SIRS Temperature:98.4 Pulse: 76 Respiratory Rate: 18 Laboratory Tests 05/16/17 09:57: White Blood Count 8.8 Blood Pressure 140 /80 Mean: 100 Laboratory Tests 05/16/17 09:57: Platelet Count 267 Results/Orders Lab Results Laboratory Tests Test 05/16/17 09:57 05/16/17 10:04 Range/Units White Blood Count 8.8 4.3-11.0 10^3/uL Red Blood Count 3.35 L 4.35-5.85 10^6/uL Hemoglobin 10.7 L 13.3-17.7 G/DL Hematocrit 33 L 40-54 % Mean Corpuscular Volume 97 80-99 FL Mean Corpuscular Hemoglobin 32 25-34 PG Mean Corpuscular Hemoglobin Concent 33 32-36 G/DL Red Cell Distribution Width 14.7 H 10.0-14.5 % Platelet Count 267 130-400 10^3/uL Mean Platelet Volume 10.2 7.4-10.4 FL Neutrophils (%) (Auto) 66 42-75 % Lymphocytes (%) (Auto) 11 L 12-44 % Monocytes (%) (Auto) 19 H 0-12 % Eosinophils (%) (Auto) 3 0-10 % Basophils (%) (Auto) 0 0-10 % Neutrophils # (Auto) 5.8 1.8-7.8 X 10^3 Lymphocytes # (Auto) 1.0 1.0-4.0 X 10^3 Monocytes # (Auto) 1.7 H 0.0-1.0 X 10^3 Eosinophils # (Auto) 0.2 0.0-0.3 10^3/uL Basophils # (Auto) 0.0 0.0-0.1 10^3/uL My Orders Orders - YAMILET WHITE Cbc With Automated Diff (05/16/17 09:58) Comprehensive Metabolic Panel (05/16/17 09:58) Ua Culture If Indicated (05/16/17 09:58) Manual Differential (05/16/17 09:57) Vital Signs/I&O Vital Sign - Last 12Hours 05/16/17 09:42 Temp 98.4 Pulse 76 Resp 18 B/P (MAP) 140/80 (100) Pulse Ox 95 O2 Delivery Room Air Capillary Refill : Less Than 3 Seconds Blood Pressure Mean: 100 Progress Note : Time: 10:05 Progress Note While urostomy tube does appear to have been pulled out about 5 cm still is draining urine and it does not bloody in appearance. We'll discuss this with urology. Consults Consults : Consulting Physician: BRONWYN MAZARIEGOS MD Consults Notes If the urostomy tube is still draining urine then just digit in place but a new dressing on it and have him keep his follow-up appointments. Departure Impression Impression: Primary Impression: Complication of urostomy Disposition: 01 HOME, SELF-CARE Condition: Improved Departure-Patient Inst. Decision time for Depature: 10:24 Referrals: ILIANA WING MD (PCP/Family) Primary Care Physician Patient Instructions: How to Care for Your Urostomy or Continent Diversion Add. Discharge Instructions: Drink plenty of fluids and take attention to make sure that the urostomy is continuing to drain. If anything changes or you develop fevers or nausea follow- up with your urologist or return to the ER if necessary. Continue taking antibiotics as prescribed. Keep your follow-up appointments as scheduled. All discharge instructions reviewed with patient and/or family. Voiced understanding. Copy Copies To 1: ILIANA WING MD Copies To 2: BRONWYN MAZARIEGOS MD, TITUS J May 16, 2017 10:04
[2017-05-16 10:06] LABS: BASOPHILS % (AUTO) 0 % (0-10); EOSINOPHILS # (AUTO) 0.2 10^3/uL (0.0-0.3); EOSINOPHILS % (AUTO) 3 % (0-10); HEMATOCRIT 33 % (40-54); HEMOGLOBIN 10.7 G/DL (13.3-17.7); LYMPHOCYTES % (AUTO) 11 % (12-44); MEAN CORPUSCULAR HEMOGLOBIN 32 PG (25-34); MEAN CORPUSCULAR HGB CONC 33 G/DL (32-36); MEAN CORPUSCULAR VOLUME 97 FL (80-99); MEAN PLATELET VOLUME 10.2 FL (7.4-10.4); MONOCYTES # (AUTO) 1.7 X 10^3 (0.0-1.0); MONOCYTES % (AUTO) 19 % (0-12); NEUTROPHILS # (AUTO) 5.8 X 10^3 (1.8-7.8); NEUTROPHILS % (AUTO) 66 % (42-75); PLATELET COUNT 267 10^3/uL (130-400); RED BLOOD COUNT 3.35 10^6/uL (4.35-5.85); RED CELL DISTRIBUTION WIDTH 14.7 % (10.0-14.5); WHITE BLOOD COUNT 8.8 10^3/uL (4.3-11.0)
[2017-05-16 10:11] LABS: BILIRUBIN,URINE NEGATIVE (NEGATIVE); CLARITY,URINE CLEAR; COLOR,URINE YELLOW; GLUCOSE, URINE (UA) NEGATIVE (NEGATIVE); KETONES,URINE NEGATIVE (NEGATIVE); LEUKOCYTE ESTERASE ,URINE 3+ (NEGATIVE); NITRITE,URINE POSITIVE (NEGATIVE); PH,URINE 6 (5-9); PROTEIN,URINE 3+ (NEGATIVE); UROBILINOGEN,URINE NORMAL (NORMAL)
[2017-05-16 10:23] LABS: BILIRUBIN,TOTAL 0.2 MG/DL (0.1-1.0); CALCIUM 9.4 MG/DL (8.5-10.1); CREATININE SERUM 1.82 MG/DL (0.60-1.30); POTASSIUM 4.2 MMOL/L (3.6-5.0); TOTAL PROTEIN 7.4 GM/DL (6.4-8.2)
[2017-05-16 10:32] LABS: BACTERIA,URINE MODERATE /HPF
[2017-05-16 10:39] LABS: BAND NEUTROPHILS 0 %; BASOPHILS % (MANUAL) 0 %; EOSINOPHILS % (MANUAL) 7 %; LYMPHOCYTES % (MANUAL) 11 %; MONOCYTES % (MANUAL) 11 %; NEUTROPHILS % (MANUAL) 71 %; RBC MORPH NORMAL
[2017-05-16 11:10] VITALS: BP 140/80
== END 2017-05-16 11:12 | disposition home or self-care (01) ==
LOC: EDUNIT# 09:21 → ER 09:23
DX: T83.032A Leakage of nephrostomy catheter, initial encounter (principal); K21.9 Gastro-esophageal reflux disease without esophagitis; G62.9 Polyneuropathy, unspecified; I48.91 Unspecified atrial fibrillation; I10 Essential (primary) hypertension; E78.00 Pure hypercholesterolemia, unspecified; Z87.19 Personal history of other diseases of the digestive system; Z87.442 Personal history of urinary calculi; Z85.828 Personal history of other malignant neoplasm of skin
CPT/HCPCS: 36415; 80053; 81000; 85007; 85027; 87088; 87186; 99282

== ENCOUNTER 2017-06-07 10:48 | Inpatient (IN) | payer MEDICARE ==
[~2017-06-07] VITALS: Ht 172.7 cm; Wt 80.0 kg
[~2017-06-07 10:48] MED LIST changes: +ASCO1TAB36 PO; +CALC-654 PO; +CHOL20003 PO; +CYAN500T2 PO; +FISH1CAP15 PO; +FOLI0.4T2 PO; +GELA650C4 PO; +HYDR-3812 PO; +MAGN400C PO; +METR250T32 PO; +METR375C PO; +MV,M1TAB2 PO; +NITR100C10 PO; +TAMS0.4C2 PO
[2017-06-07] MEDS ORDERED: LACTULOSE SYRUP 10GM/15ML (ENULOSE) 30ML UDC PO PRN (15:15)
[2017-06-07] MEDS ORDERED: ONDANSETRON 4 MG/2 ML (SDV) Z0FRAN IVP PRN (15:15)
[2017-06-07] MEDS ORDERED: fentaNYL INJECTION 100 MCG/2 ML AMP IVP PRN (15:15)
[2017-06-07] MEDS ORDERED: ACETAMINOPHEN 500 MG TAB (TYLENOL) PO PRN (15:15)
[2017-06-07] MEDS ORDERED: PANTOPRAZOLE 20 MG TABLET (PROTONIX) PO PRN (15:15)
[2017-06-07] MEDS: LACTOBACILLUS Acidoph/Bulgar (LACTINEX/FLORANEX) TAB PO SCH (16:45)
[2017-06-07 18:48] VITALS: BP 110/61
[2017-06-07] MEDS: MEROPENEM IV SCH (21:03)
[2017-06-07] MEDS: metroNIDAZOLE 500 MG (FLAGYL) TAB PO SCH (21:03)
[2017-06-07] MEDS: D5W IV SCH (21:03)
[2017-06-07] MEDS: HYDROcodone/APAP 5 MG/325 MG (LORTAB) TAB PO PRN (21:03)
[2017-06-08] MEDS: MEROPENEM IV SCH ×3 (05:48→21:32)
[2017-06-08] MEDS: D5W IV SCH ×3 (05:48→21:32)
[2017-06-08] MEDS: LACTOBACILLUS Acidoph/Bulgar (LACTINEX/FLORANEX) TAB PO SCH ×3 (05:48→15:30)
[2017-06-08 06:00] VITALS: BP 117/57
--- OUTSIDE RECORDS SUMMARY | 2017-06-08 09:26 | XMS REPORT | Encounter Summary ---
Author Author [facility] Organization [facility] Address Unknown Phone Unavailable Care Team Providers Care Tack Puller Name Role Phone Jese Tam MD PCP Encounter Details Date Type Department Care Team Description 06/03/2017 Procedure Pass Main Operating Room [address] [place], [place] [id number] Social History Tobacco Use Types Packs/Day Years Used Date Never Smoker Smokeless Tobacco: Never Used Alcohol Use Drinks/Week oz/Week Comments No Sex Assigned at Date Recorded Not on file as of this encounter Plan of Treatment Not on fileas of this encounter Visit Diagnoses Not on filein this encounter
--- OUTSIDE RECORDS SUMMARY | 2017-06-08 09:26 | XMS REPORT | Clinical Summary ---
Author Author [facility] Organization [facility] Address Unknown Phone Unavailable Care Team Providers Care Switch Repairer Name Role Phone Jese Tam MD PCP Source Comments Some departments are not documenting in the electronic medical record. If you do not see the information that you expected, contact Release of Information in the Health Information Management department at [phone] for further assistance in locating additional records.[facility] Allergies Active Allergy Reactions Severity Noted Date Comments Iodinated Contrast- Oral UNKNOWN Low 05/11/2017 And Iv Dye Penicillins UNKNOWN Low 05/11/2017 Current Medications Prescription Sig. Disp. Refills Start End Date Status Date clotrimazole-betamethason 05/10/19 Active e (LOTRISONE) 1-0.05 % 18 topical cream fenofibrate(+) (TRIGLIDE) at bedtime daily. 04/29/20 Active 160 mg tablet 17 HYDROcodone/acetaminophen 04/19/20 Active (NORCO) 5/325 mg tablet 17 hydrocortisone(+) 2.5 % 03/10/20 Active topical lotion 17 metoprolol XL (TOPROL XL) 02/17/20 Active 25 mg extended release 17 tablet lactobacillus rhamnosus Take 1 capsule by mouth Active GG (LACTOBACILLUS as directed twice daily RHAMNOSUS (GG)) 15 with meals. billion cell cpSP capsule polyethylene glycol 3350 Take 17 g by mouth daily. Active (MIRALAX) 17 g packet omeprazole(+) (PRILOSEC) Take 10 mg by mouth daily Active 10 mg capsule before breakfast. baclofen (LIORESAL) 10 mg 04/13/20 05/20/19 Discontin tablet 17 18 ued ciprofloxacin (CIPRO) 500 05/10/19 05/20/19 Discontin mg tablet 18 18 ued fluconazole (DIFLUCAN) 05/10/19 05/20/19 Discontin 150 mg tablet 18 18 ued traMADol (ULTRAM) 50 mg 03/14/20 05/20/19 Discontin tablet 17 18 ued tamsulosin (FLOMAX) 0.4 04/19/20 05/20/19 Discontin mg capsule 17 18 ued trimethoprim/sulfamethoxa 05/10/19 05/20/19 Discontin zole (BACTRIM DS) 160/800 18 18 ued mg tablet nitrofurantoin 04/19/20 05/20/19 Discontin macrocrystal 17 18 ued (MACRODANTIN) 100 mg capsule nitrofurantoin Take 1 capsule by mouth 42 capsule 0 05/13/19 monohyd/m-cryst every 12 hours for 21 18 18 (MACROBID) 100 mg capsule days. Take with food. Active Problems Problem Noted Date Ureteral stone 05/12/2017 Overview: Added automatically from request for surgery [id number] Nephrolithiasis 05/11/2017 Encounters Date Type Specialty Care Team Description 06/03/2017 Procedure Pass 05/23/2017 Telephone Urology Esteban Stovall MD Navigation Follow Up 05/13/2017 Telephone Urology Esteban Stovall MD Results 05/13/2017 Orders Only Urology Esteban Stovall MD 05/12/2017 Prep for Case Urology Esteban Stovall MD 05/11/2017 Hospital Radiology Esteban Stovall MD Encounter 05/11/2017 Hospital Lab Esteban Stovall MD [...] Taken Blood Pressure 122/54 05/11/2017 10:21 AM CLINICAL DATA ANALYST Pulse 71 05/11/2017 10:21 AM CLINICAL DATA ANALYST Temperature 36.4 C (97.5 F) 05/11/2017 10:58 AM CLINICAL DATA ANALYST Respiratory Rate - - Oxygen Saturation - - Inhaled Oxygen - - Concentration Weight 89.8 kg (197 lb 15.6 oz) 05/20/2017 12:43 PM CLINICAL DATA ANALYST Height 177.8 cm (5' 10") 05/20/2017 12:43 PM CLINICAL DATA ANALYST Body Mass Index 28.41 05/20/2017 12:43 PM CLINICAL DATA ANALYST Plan of Treatment Health Maintenance Due Date Last Done Comments [...] Interface, Radiant Results - 05/11/2017 4:[address]LYST [address] ABDOMEN AND PELVIS Clinical Indication: Male, [...] expressed in this report Finalized by Omari Villareral M.D. on 05/11/2017 4:22 PM. Dictated by [...] [place] Specimen Performing Laboratory Blood MAIN LAB [address] [place] [address] * BASIC METABOLIC PANEL (05/11/2017 11:46 AM) [...] questions. Specimen Performing Laboratory Blood MAIN LAB [address] [place], [place] [id number] * URINALYSIS, MICROSCOPIC (05/11/2017 11:28 AM) Only the most recent of 2 results within the time period is included. Component Value Ref Range WBCs,UA PACKED 0 - 2 /HPF RBCs,UA 2-10 0 - 3 /HPF MucousUA TRACE Bacteria,UA FEW (A) NEG-NEG WBC Clumps PRESENT Specimen Performing Laboratory MAIN LAB [address] [place], [place] [id number] * URINALYSIS DIPSTICK (05/11/2017 11:28 AM) Only the most recent of 2 results within the time period is included. Component Value Ref Range Color,UA YELLOW Turbidity,UA 1+ (A) CLEAR-CLEAR Specific [place]-Urine 1.013 1.003 - 1.035 pH,UA 6.0 5.0 [...] result. Specimen Performing Laboratory MAIN LAB [address] [place] [address] * CULTURE-URINE W/SENSITIVITY (05/11/2017 11:28 AM) Only [...] Urine - Urine,Clean Catch MAIN LAB [address] [place] [address] Organism Antibiotic Method Susceptibility >100,000 organisms/ml Ampicillin [...]
--- OUTSIDE RECORDS SUMMARY | 2017-06-08 09:26 | XMS REPORT | Clinical Summary ---
Author Author [facility] Organization [facility] Address Unknown Phone Unavailable Care Team Providers Care Spring Coiler Name Role Phone Paty Posadas MD PP Mert Guido MD Unavailable Lance Richards MD Unavailable Allergies Active Allergy Reactions Severity Noted Date [...] 11/12/2013 02/10/2017 Bladder neck contracture 10/23/2013 02/10/2017 Immunizations Name Dates Previously Given Next Due [...] 06/08/2017 Office Visit Lance Richards MD [address] [place] [address] 02/09/2018 Office Visit Noreen Taylor, TYPEWRITER ASSEMBLER [address] [place] [address] [phone] Health Maintenance Due Date Last Done Comments DTaP,Tdap,and Td Vaccines 02/05/1949 (1 - Tdap) Annual Wellness Visit 12/06/1997 Pneumo-Adult (2 of 2 - 08/10/2013 08/10/2012 PCV13) Influenza Vaccine (#1) 2016 02/18/2016, 01/11/2015, 02/08/2013 Zoster Vaccine Completed 07/28/2012 Results Not on filefrom Last 3 Months
--- OUTSIDE RECORDS SUMMARY | 2017-06-08 09:26 | XMS REPORT | Continuity of Care Document ---
Author Author [facility] Organization [facility] Address Unknown Phone Unavailable Care Team Providers Care Procedure Rn Name Role Phone [employer] Unavailable Unavailable Problems Medications Allergies, Adverse Reactions, Alerts Immunizations Results Vital Signs Encounters Location Location Details Encounter Type Encounter Number Reason For Visit Attending Provider ADM Date DC Date Status Source OUTPATIENT [id number] DIOGENES WARNER 05/11/2017 05/11/2017 Active [facility] O Active [facility] O [id number] DIOGENES WARNER Active [facility] Procedures Plan of Care Social History Assessment and Plan Family History Advance Directives Functional Status
--- OUTSIDE RECORDS SUMMARY | 2017-06-08 09:26 | XMS REPORT | Encounter Summary ---
Author Author [facility] Organization [facility] Address Unknown Phone Unavailable Care Team Providers Care Ruby On Rails Web Developer Name Role Phone Jese Tam MD PCP Reason for Visit * Reason Comments Navigation Follow Up Encounter Details Date Type Department Care Team Description 05/23/2017 Telephone [facility] Esteban Stovall MD Navigation Follow Up Physicians - Urology [address] [place] [address] MED [phone] [place] [address] Social History Tobacco Use Types Packs/Day Years Used Date Never Smoker Smokeless Tobacco: Never Used Alcohol Use Drinks/Week oz/Week Comments No Sex Assigned at Date Recorded Not on file as of this encounter Miscellaneous Notes * Telephone Encounter - Shaista Yeboah LPN - 05/23/2017 3:52 PM WRAPPER AND PRESERVER ----- Message from Esteban Stovall MD sent at 05/23/2017 3:28 PM WRAPPER AND PRESERVER ----- No. He does not. Will use his existing access. ----- Message ----- From: Shaista Yeboah LPN Sent: 05/23/2017 3:05 PM To: Esteban Stovall MD, Bibi Gini Gregorye Will pt need new neph tube with IR prior to sx. IR is calling bacause they don' t have an order for a change. Thanks in this encounter Plan of Treatment Not on fileas of this encounter Visit Diagnoses Not on filein this encounter
--- OUTSIDE RECORDS SUMMARY | 2017-06-08 09:26 | XMS REPORT | Encounter Summary ---
Author Author [facility] Organization [facility] Address Unknown Phone Unavailable Care Team Providers Care Building Construction Foreman Name Role Phone Jese Tam MD PCP Reason for Visit * Reason Comments Results Encounter Details Date Type Department Care Team Description 05/13/2017 Telephone [facility] Esteban Stovall MD Results Physicians - Urology [address] [facility] [address] [place] [address] [address] [facility] MED [phone] [place] [address] Social History Tobacco Use Types Packs/Day Years Used Date Never Smoker Smokeless Tobacco: Never Used Alcohol Use Drinks/Week oz/Week Comments No Sex Assigned at Date Recorded Not on file as of this encounter Miscellaneous Notes * Telephone Encounter - Shaista Yeboah LPN - 05/13/2017 9:55 AM INVESTMENT OFFICER Called pharmacy and called order. Pt notified. * Telephone Encounter - Shaista Yeboah LPN - 05/13/2017 9:55 AM INVESTMENT OFFICER ----- Message from Esteban Stovall MD sent at 05/13/2017 9:40 AM INVESTMENT OFFICER ----- He is going to see Dr. Frank today. No need to make other changes at this time. ----- Message ----- From: Shaista Yeboah LPN Sent: 05/13/2017 8:26 AM To: Esteban Stovall MD Pt is also taking cipro and batrim. Do you want him to stop these and start Macrobid? in this encounter Plan of Treatment Not on fileas of this encounter Visit Diagnoses Not on filein this encounter
--- OUTSIDE RECORDS SUMMARY | 2017-06-08 09:27 | XMS REPORT | Encounter Summary ---
Author Author [facility] Organization [facility] Address Unknown Phone Unavailable Care Team Providers Care Advertising Job Titles Name Role Phone Jese Tam MD PCP Encounter Details Date Type Department Care Team Description 05/11/2017 Orders Only [facility] Jese Tam MD [facility] Radiology [address] [place] [address] [place] [address] Social History Tobacco Use Types Packs/Day Years Used Date Never Smoker Smokeless Tobacco: Never Used Alcohol Use Drinks/Week oz/Week Comments No Sex Assigned at Date Recorded Not on file as of this encounter Plan of Treatment Not on fileas of this encounter Visit Diagnoses Not on filein this encounter
--- OUTSIDE RECORDS SUMMARY | 2017-06-08 09:27 | XMS REPORT | Encounter Summary ---
Author Author [facility] Organization [facility] Address Unknown Phone Unavailable Care Team Providers Care Bottling Machine Operator Name Role Phone Jese Tam MD PCP Encounter Details Date Type Department Care Team Description 05/12/2017 Prep for Case [facility] Esteban Stovall MD Physicians - Urology [address] [facility] [address] [place] [address] [address] [facility] [phone] [place] [address] Social History Tobacco Use Types Packs/Day Years Used Date Never Smoker Smokeless Tobacco: Never Used Alcohol Use Drinks/Week oz/Week Comments No Sex Assigned at Date Recorded Not on file as of this encounter Plan of Treatment Not on fileas of this encounter Visit Diagnoses Not on filein this encounter
--- OUTSIDE RECORDS SUMMARY | 2017-06-08 09:27 | XMS REPORT | Encounter Summary ---
Author Author [facility] Organization [facility] Address Unknown Phone Unavailable Care Team Providers Care Seo Manager Name Role Phone Jese Tam MD PCP Encounter Details Date Type Department Care Team Description 05/13/2017 Orders Only [facility] Esteban Stovall MD Physicians - Urology [address] [facility] [address] [place] [address] [address] [facility] [phone] [place] [address] Social History Tobacco Use Types Packs/Day Years Used Date Never Smoker Smokeless Tobacco: Never Used Alcohol Use Drinks/Week oz/Week Comments No Sex Assigned at Date Recorded Not on file as of this encounter Plan of Treatment Not on fileas of this encounter Visit Diagnoses Not on filein this encounter
--- OUTSIDE RECORDS SUMMARY | 2017-06-08 09:27 | XMS REPORT | Encounter Summary ---
Author Author [facility] Organization [facility] Address Unknown Phone Unavailable Care Team Providers Care Microfilming Document Preparer Name Role Phone Jese Tam MD PCP Encounter Details Date Type Department Care Team Description 05/11/2017 [facility] Esteban Stovall MD Calculus of kidney Encounter [address] [place] [address] [place] [address] [phone] Social History Tobacco Use Types Packs/Day Years Used Date Never Smoker Smokeless Tobacco: Never Used Alcohol Use Drinks/Week oz/Week Comments No Sex Assigned at Date Recorded Not on file as of this encounter Medications at Time of Discharge Medication Sig. Disp. Refills Start Date End Date clotrimazole-betamethason 05/10/2017 e (LOTRISONE) 1-0.05 % topical cream fenofibrate(+) (TRIGLIDE) at bedtime daily. 04/29/2017 160 mg tablet HYDROcodone/acetaminophen 04/19/2017 (NORCO) 5/325 mg tablet hydrocortisone(+) 2.5 % 03/10/2017 topical lotion metoprolol XL (TOPROL XL) 02/16/2017 25 mg extended release tablet baclofen (LIORESAL) 10 mg 04/13/2017 05/20/2017 tablet ciprofloxacin (CIPRO) 500 05/10/2017 05/20/2017 mg tablet fluconazole (DIFLUCAN) 05/10/2017 05/20/2017 150 mg tablet nitrofurantoin 04/19/2017 05/20/2017 macrocrystal (MACRODANTIN) 100 mg capsule tamsulosin (FLOMAX) 0.4 04/19/2017 05/20/2017 mg capsule traMADol (ULTRAM) 50 mg 03/14/2017 05/20/2017 tablet trimethoprim/sulfamethoxa 05/10/2017 05/20/2017 zole (BACTRIM DS) 160/800 mg tablet as of this encounter Plan of Treatment Not on fileas of this encounter Results * BASIC METABOLIC [...] Specimen Performing Laboratory Blood MAIN LAB [address] [place] [address] * CBC (05/11/2017 11:46 AM) Component Value [...] Specimen Performing Laboratory Blood MAIN LAB [address] [place] [address] * CULTURE-URINE W/SENSITIVITY (05/11/2017 11:28 AM) Component Value Ref Range Battery Name URINE CULTURE Specimen Description URINE, CLEAN CATCH Special Requests NONE Culture >100,000 organisms/ml ESCHERICHIA COLI, ESBL POSITIVE (A) Report Status FINAL 05/14/2017 Organism ID >100,000 organisms/ml ESCHERICHIA COLI, ESBL POSITIVE Specimen Performing Laboratory Urine - Urine,Clean Catch [facility] MA[facility] [address] [place] [address] Organism Antibiotic Method Susceptibility >100,000 organisms/ml Ampicillin [...] Status FINAL 05/14/2017 Specimen Performing Laboratory Urine MAIN LAB [address] [place] [address] in this encounter Visit Diagnoses Diagnosis Nephrolithiasis Calculus of kidney Admitting Diagnoses Diagnosis Calculus of kidney
--- OUTSIDE RECORDS SUMMARY | 2017-06-08 09:27 | XMS REPORT | Encounter Summary ---
Author Author [facility] Organization [facility] Address Unknown Phone Unavailable Care Team Providers Care Roller Presser Operator Name Role Phone Jese Tam MD PCP Encounter Details Date Type Department Care Team Description 05/11/2017 Procedure Pass [facility] [address] [place] [address] Social History Tobacco Use Types Packs/Day Years Used Date Never Smoker Smokeless Tobacco: Never Used Alcohol Use Drinks/Week oz/Week Comments No Sex Assigned at Date Recorded Not on file as of this encounter Plan of Treatment Not on fileas of this encounter Visit Diagnoses Not on filein this encounter
--- OUTSIDE RECORDS SUMMARY | 2017-06-08 09:27 | XMS REPORT | Encounter Summary ---
Author Author [facility] Organization [facility] Address Unknown Phone Unavailable Care Team Providers Care Networking Engineer Name Role Phone Jese Tam MD PCP Reason for Referral * Radiology Services Status Reason Specialty Diagnoses / Referred By Referred To Procedures Contact Contact No Auth Needed Radiology Diagnoses Esteban Stovall MD [address] Nephrolithiasis [address] [place] [address] [place] [address] [place] A[place] [address] Phone: CONTRAST [phone] Reason for Visit * Reason Comments Other Encounter Details Date Type Department Care Team Description 05/11/2017 Office Visit [facility] Esteban Stovall MD Nephrolithiasis Physicians - Urology [address] [place] [address] MED [phone] [place] [address] Social History Tobacco Use Types Packs/Day Years Used Date Never Smoker Smokeless Tobacco: Never Used Alcohol Use Drinks/Week oz/Week Comments No Sex Assigned at Date Recorded Not on file as of this encounter Last Filed Vital Signs Vital Sign Reading Time Taken Blood Pressure 122/54 05/11/2017 10:21 AM ASSISTANT ANALYST Pulse 71 05/11/2017 10:21 AM ASSISTANT ANALYST Temperature 36.4 C (97.5 F) 05/11/2017 10:58 AM ASSISTANT ANALYST Respiratory Rate - - Oxygen Saturation - - Inhaled Oxygen - - Concentration Weight 82.1 kg (181 lb) 05/11/2017 10:21 AM ASSISTANT ANALYST Height - - Body Mass Index - - in this encounter Progress Notes * Esteban Stovall MD - 05/11/2017 10:00 AM ASSISTANT ANALYST Formatting of this note may be different from the original. Date of Service: 05/11/2017 Subjective: Tank Byrne is a 87 y.o. male. History of Present Illness Tank Byrne is a 87 y.o. male with a past history of BPH and prostatitis followed by Dr Frank. Presented in March at [facility] in [place], [place]. Found to have to have a [...] answered. in this encounter Plan of Treatment Name Priority Associated Diagnoses Order Schedule CULTURE-URINE [...] Interface, Radiant Results - 05/11/2017 4:[address] ABDOMEN AND PELVIS Clinical Indication: [...] Specimen Performing Laboratory Blood MAIN LAB [address] [place] [address] * CBC (05/11/2017 11:46 AM) Component Value [...] Specimen Performing Laboratory Blood MAIN LAB [address] [place] [address] * CULTURE-URINE W/SENSITIVITY (05/11/2017 11:28 AM) Component Value Ref Range Battery Name URINE CULTURE Specimen Description URINE, CLEAN CATCH Special Requests NONE Culture >100,000 organisms/ml ESCHERICHIA COLI, ESBL POSITIVE (A) Report Status FINAL 05/14/2017 Organism ID >100,000 organisms/ml ESCHERICHIA COLI, ESBL POSITIVE Specimen Performing Laboratory Urine - Urine,Clean Catch [facility] [address] [place] [address] Organism Antibiotic Method Susceptibility >100,000 organisms/ml Ampicillin [...]
--- OUTSIDE RECORDS SUMMARY | 2017-06-08 09:27 | XMS REPORT | Encounter Summary ---
Author Author [facility] Organization [facility] Address Unknown Phone Unavailable Care Team Providers Care Acidity Tester Name Role Phone Jese Tam MD PCP Reason for Referral * Radiology Services Status Reason Specialty Diagnoses / Referred By Referred To Procedures Contact Contact No Auth Needed Radiology Diagnoses Esteban Stovall MD [address] Nephrolithiasis [address] [place] [address] [place] [address] [place] [address] Phone: CONTRAST [phone] * Radiology Services Status Reason Specialty Diagnoses / Referred By Referred To Procedures Contact Contact No Auth Needed Radiology Diagnoses Esteban Stovall MD [address] Nephrolithiasis [address] [place] [address] [place] [address] [place] [address] Phone: CONTRAST [phone] Reason for Visit * Radiology Services Status Reason Specialty Diagnoses / Referred By Referred To Procedures Contact Contact No Auth Needed Radiology Diagnoses Esteban Stovall MD [address] Nephrolithiasis [address] [place] [address] [place] [address] [place] [address] Phone: CONTRAST [phone] Encounter Details Date Type Department Care Team Description 05/11/2017 [facility] Esteban Stovall MD Encounter [facility] [address] [place] [address] [place] [address] [phone] Social History Tobacco Use Types Packs/Day Years [...] on fileas of this encounter Results * CT ABD/PELV [...] Interface, Radiant Results - 05/11/2017 4:25 PM DIESEL SERVICE APPRENTICE CT ABDOMEN AND PELVIS Clinical Indication: Male, [...] PRESENT Specimen Performing Laboratory MAIN LAB [address] [place] [address] * URINALYSIS DIPSTICK (05/11/2017 11:28 AM) Component Value Ref Range Color,UA YELLOW Turbidity,UA 1+ (A) CLEAR-CLEAR Specific Center Line-Urine 1.013 1.003 - 1.035 pH,UA 6.0 5.0 [...] a false negative result. Specimen Performing Laboratory [facility] MA[facility] [address] [place] [address] * URINALYSIS, MICROSCOPIC (05/11/2017 11:27 AM) Component Value Ref Range WBCs,UA PACKED 0 - 2 /HPF RBCs,UA 20-50 0 - 3 /HPF Bacteria,UA MANY (A) NEG-NEG WBC Clumps PRESENT Specimen Performing Laboratory MAIN LAB [address] [place] [address] * URINALYSIS DIPSTICK (05/11/2017 11:27 AM) Component Value Ref Range Color,UA YELLOW Turbidity,UA 2+ (A) CLEAR-CLEAR Specific Center Line-Urine 1.013 1.003 - 1.035 pH,UA 7.0 5.0 [...] result. Specimen Performing Laboratory MAIN LAB [address] [place] [address] in this encounter Visit Diagnoses Diagnosis Nephrolithiasis Calculus of kidney
--- OUTSIDE RECORDS SUMMARY | 2017-06-08 09:29 | XMS REPORT | Continuity of Care Document ---
Author Author [facility] Organization [facility] Address Unknown Phone Unavailable Allergies Active Description Code Type Severity Reaction Onset Reported/Identified Relationship to Patient Clinical Status Yes iodine [id number] Drug Allergy Unknown N/A 09/01/2006 Yes Penicillins [id number] Drug Allergy Unknown N/A 09/01/2006 Yes Penicillins [id number] Drug Allergy Severe Anaphylaxis 03/31/2017 Yes Penicillins [id number] Drug Allergy Severe Anaphylaxis (pt 04/19/2017 Yes SURGICAL GLUE SURGICAL GLUE Severe "TOOK OFF SKIN" 06/04/2017 Medications There is no data. Problems Date [...] WERNER SAMPSON, TEETEE Arreguin Ot 272.4 03/27/2014 TEETEE CALDERA MD Ot 530.81 03/27/2014 TEETEE CALDERA MD Ot [...] SAMPSON, DARBY Nelson Ot V43.61 01/02/2015 KALEY SAPMSON, DARBY Nelson Ot V54.81 01/02/2015 KALEY SAMPSON, [...] KALEY SAMPSON, DARBY Nelson Ot V43.61 01/30/2015 DARBY ROCHE MD Ot V54.81 01/30/2015 KALEY SAMPSON, DARBY Nelson Ot V57.1 04/17/2015 JEFF SAMPSON, ALBERTINA Cerna Ot Z47.1 04/17/2015 ALBERTINA AGUILAR MD Ot Z96.612 04/19/2015 DRE SAMPSON, MERLINE Tsai Ot I48.91 UNSPECIFIED ATRIAL FIBRILLATION 05/13/2015 ALBERTINA AGUILAR MD Ot Z47.1 05/13/2015 ALBERTINA AGUILAR MD Ot Z96.612 05/19/2015 ALBERTINA AGUILAR MD Ot 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.1 AFTERCARE FOLLOWING JOINT REPLACEMENT HEARD 05/19/2015 JEFF SAMPSON, ALBERTINA Cerna Ot 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 07/03/2015 Ot 722.52 07/03/2015 Ot 737.30 07/03/2015 ALLYSSA SAMPSON, JOAN S Ot V72.84 07/03/2015 ALLYSSA SAMPSON, JOAN Turner Ot 553.3 07/03/2015 ALLYSSA SAMPSON, JOAN Turner Ot 787.20 07/03/2015 ALLYSSA SAMPSON, JOAN S Ot V72.84 07/03/2015 ALLYSSA SAMPSON, JOAN S Ot V72.84 07/03/2015 TEETEE CALDERA MD Ot 272.4 07/03/2015 WERNER SAMPSON, TEETEE Arreguin Ot 530.81 07/03/2015 TEETEE CALDERA MD Ot 786.59 07/07/2015 Ot 722.52 07/07/2015 Ot 737.30 07/07/2015 ALLYSSA SAMPSON, JOAN Turner Ot V72.84 07/07/2015 ALLYSSA SAMPSON, JOAN S Ot 553.3 07/07/2015 ALLYSSA SAMPSON, JOAN S Ot 787.20 07/07/2015 ALLYSSA SAMPSON, JOAN S Ot V72.84 07/07/2015 ALLYSSA SAMPSON, JOAN S Ot V72.84 07/07/2015 TEETEE CALDERA MD Ot 272.4 07/07/2015 TEETEE CALDERA MD Ot [...] HERNANDEZ MD Ot E78.2 MIXED HYPERLIPIDEMIA 10/05/2015 DYLON HERNANDEZ MD Ot I44.4 LEFT ANTERIOR [...] PRE-OPERATIVE NOS 03/17/2016 JOAN SPIVEY MD Ot 553.3 DIAPHRAGMATIC HERNIA 03/17/2016 JOAN SPIVEY [...] 04/13/2016 DYLON HERNANDEZ MD Ot Z79.899 OTHER MANAGEMENT RETAIL INTERN (CURRENT) DRUG THERAPY 05/04/2016 DYLON HERNANDEZ MD Ot E78.5 HYPERLIPIDEMIA, UNSPECIFIED 05/04/2016 DYLON HERNANDEZ MD Ot I48.0 PAROXYSMAL ATRIAL FIBRILLATION 05/04/2016 DYLON HERNANDEZ MD Ot 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 05/04/2016 DYLON HERNANDEZ MD Ot I49.3 VENTRICULAR PREMATURE DEPOLARIZATION 05/04/2016 DYLON HERNANDEZ MD Ot 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 05/04/2016 DYLON HERNANDEZ MD Ot Z79.899 OTHER FDC (CURRENT) DRUG THERAPY 05/12/2016 DYLON HERNANDEZ MD Ot E78.5 HYPERLIPIDEMIA, UNSPECIFIED 05/12/2016 DYLON HERNANDEZ MD Ot I48.0 PAROXYSMAL ATRIAL FIBRILLATION 05/12/2016 DYLON HERNANDEZ MD Ot 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 05/12/2016 DYLON HERNANDEZ MD Ot I49.3 VENTRICULAR PREMATURE DEPOLARIZATION 05/12/2016 DYLON HERNANDEZ MD Ot 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 05/12/2016 DYLON HERNANDEZ MD Ot Z79.899 OTHER MANAGEMENT RETAIL INTERN (CURRENT) DRUG THERAPY 09/14/2016 Ot 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 09/14/2016 Ot 737.30 IDIOPATHIC SCOLIOSIS 09/14/2016 JOAN SPIVEY MD Ot V72.84 EXAM PRE-OPERATIVE NOS 09/14/2016 ALLYSSA SAMPSON, JOAN S Ot 553.3 DIAPHRAGMATIC HERNIA 09/14/2016 ALLYSSA SAMPSON, JOAN Turner Ot 787.20 DYSPHAGIA, UNSPECIFIED 09/14/2016 JOAN SPIVEY MD Ot V72.84 EXAM PRE-OPERATIVE NOS 09/14/2016 JOAN SPIVEY MD Ot V72.84 EXAM PRE-OPERATIVE NOS 09/14/2016 TEETEE CALDERA MD Ot 272.4 HYPERLIPIDEMIA NEC/NOS 09/14/2016 TEETEE CALDERA MD Ot 530.81 ESOPHAGEAL REFLUX 09/14/2016 TEETEE CALDERA MD Ot 786.59 CHEST PAIN NEC 09/14/2016 DYLON HERNANDZE MD Ot E78.2 MIXED HYPERLIPIDEMIA 09/14/2016 DYLON [...] CHRONIC DIASTOLIC (CONGESTIVE) HEART BIRGIT 09/14/2016 DYLON HERNANEDZ MD Ot Z79.899 OTHER MANAGEMENT RETAIL INTERN (CURRENT) DRUG THERAPY 09/18/2016 VANIA-MANASA PA, STEF K Ot E78.2 MIXED HYPERLIPIDEMIA 09/18/2016 VANIA-MANASA PA, STEF K Ot I48.0 PAROXYSMAL ATRIAL FIBRILLATION 09/18/2016 VANIA-MANASA PA, STEF K Ot 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 09/18/2016 VANIA-MANASA PA, STEF K Ot R53.83 OTHER FATIGUE 10/08/2016 VANIA-MANASA PA, STEF K Ot E78.2 MIXED HYPERLIPIDEMIA 10/08/2016 CARO-MANASA PA, STEF K Ot I48.0 PAROXYSMAL ATRIAL FIBRILLATION 10/08/2016 VANIA-MANASA PA, STEF K Ot 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 10/08/2016 VANIA-MANASA PA, STEF K Ot R53.83 OTHER FATIGUE 10/13/2016 VANIA-MANASA PA, STEF K Ot E78.2 MIXED HYPERLIPIDEMIA 10/13/2016 CARO-MANASA PA, STEF K Ot I48.0 PAROXYSMAL ATRIAL FIBRILLATION 10/13/2016 VANIA-MANASA PA, STEF K Ot 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 10/13/2016 CARO-MANASA PA, STEF K Ot R53.83 OTHER FATIGUE [...] Ot 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, THORACIC REGION 11/30/2016 IPSEN MD, PHILLIP J Ot 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, THORACIC REG [...] CALDERA MD Ot 272.4 HYPERLIPIDEMIA NEC/NOS 12/09/2016 TEETEE CALDERA MD Ot 530.81 ESOPHAGEAL REFLUX 12/09/2016 TEETEE CALDERA MD Ot 786.59 CHEST PAIN NEC 12/09/2016 YDLON HERNANDEZ MD Ot E78.2 MIXED HYPERLIPIDEMIA 12/09/2016 [...] 12/09/2016 DYLON HERNANDEZ MD Ot Z79.899 OTHER MANAGEMENT RETAIL INTERN (CURRENT) DRUG THERAPY 12/09/2016 STEF DICKENS Ot E78.2 MIXED HYPERLIPIDEMIA 12/09/2016 STEF DICKENS Ot I48.0 PAROXYSMAL ATRIAL FIBRILLATION 12/09/2016 STEF DICKENS Ot 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 12/09/2016 STEF DICKENS Ot R53.83 OTHER FATIGUE 12/09/2016 PHILLIP HERNADEZ MD Ot 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, THORACIC REG 12/09/2016 PHILLIP HERNADEZ MD Ot M47.814 SPONDYLOSIS W/O MYELOPATHY OR RADICULOPA 12/09/2016 PHILLIP HERNADEZ MD Ot 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, THORACIC REGION 12/10/2016 TANYA BARAJAS DO Ot 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, LUMBAR REGIO 12/10/2016 TANYA BARAJAS DO Ot M48.06 SPINAL STENOSIS, LUMBAR REGION 12/10/2016 TANYA BARAJAS DO Ot M51.36 OTHER INTERVERTEBRAL DISC DEGENERATION, 12/24/2016 PHILLIP HERNADEZ MD Ot 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, THORACIC REG 12/24/2016 PHILLIP HERNADEZ MD Ot M47.814 SPONDYLOSIS W/O MYELOPATHY OR RADICULOPA 12/24/2016 PHILLIP HERNADEZ MD Ot 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, THORACIC REGION 12/27/2016 PHILLIP HERANDEZ MD Ot 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, THORACIC [...] DICKENS Ot I48.0 PAROXYSMAL ATRIAL FIBRILLATION 02/16/2017 CARO-MANASA PA, STEF K Ot 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 03/09/2017 VANIA-MANASA PA, STEF K Ot E78.2 MIXED HYPERLIPIDEMIA 03/09/2017 ISAAC VENTURA, STEF K Ot I10 ESSENTIAL (PRIMARY) HYPERTENSION 03/09/2017 ISAAC PA, STEF K Ot I34.0 NONRHEUMATIC MITRAL (VALVE) INSUFFICIENC 03/09/2017 ISAAC VENTURASTEF Ot I48.0 PAROXYSMAL ATRIAL FIBRILLATION 03/09/2017 ISAAC PA, STEF Jane Ot 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 03/18/2017 VANIA-MANASA PA, STEF Jane Ot E78.2 MIXED HYPERLIPIDEMIA 03/18/2017 CARO-MANASA VENTURA, STEF K Ot I10 ESSENTIAL (PRIMARY) HYPERTENSION 03/18/2017 ISAAC VENTURA, STEF K Ot I34.0 NONRHEUMATIC MITRAL (VALVE) INSUFFICIENC 03/18/2017 ISAAC VENTURA STEF Jane Ot I48.0 PAROXYSMAL ATRIAL FIBRILLATION 03/18/2017 ISAAC VENTURA, STEF Jane Ot 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 OF OTHER MALIGNANT NEOP 04/19/2017 MARY SAMPSON, DYLON Cerna Ot E78.2 MIXED HYPERLIPIDEMIA 04/19/2017 MARY SAMPSON, DYLON Cerna Ot I44.4 LEFT ANTERIOR FASCICULAR BLOCK 04/19/2017 [...] 04/19/2017 BRONWYN MAZARIEGOS MD, Ot Z79.899 OTHER [facility] (CURRENT) DRUG THERAPY 04/21/2017 BRONWYN MAZARIEGOS MD Ot I10 ESSENTIAL (PRIMARY) HYPERTENSION 04/21/2017 BRONWYN MAZARIEGOS MD Ot K21.9 GASTRO-ESOPHAGEAL REFLUX DISEASE WITHOUT 04/21/2017 BRONWYN MAZARIEGOS MD, Ot K44.9 DIAPHRAGMATIC HERNIA WITHOUT OBSTRUCTION 04/21/2017 BRONWYN MAZARIEGOS MD, Ot N20.0 CALCULUS OF KIDNEY 04/21/2017 BRONWYN MAZARIEGOS MD, Ot Z79.899 OTHER MANAGEMENT RETAIL INTERN (CURRENT) DRUG THERAPY 04/21/2017 BRONWYN MAZARIEGOS MD Ot I10 ESSENTIAL (PRIMARY) HYPERTENSION 04/21/2017 BRONWYN MAZARIEGOS MD Ot K21.9 GASTRO-ESOPHAGEAL REFLUX DISEASE WITHOUT 04/21/2017 BRONWYN MAZARIEGOS MD Ot K44.9 DIAPHRAGMATIC HERNIA WITHOUT OBSTRUCTION 04/21/2017 YAIR MD, BRONWYN A Ot N20.0 CALCULUS OF KIDNEY 04/21/2017 YAIR SAMPSON, BRONWYN A Ot Z79.899 OTHER MANAGEMENT RETAIL INTERN (CURRENT) DRUG THERAPY 05/06/2017 YAIR SAMPSON, BRONWYN A Ot N20.0 CALCULUS OF KIDNEY 05/06/2017 YAIR SAMPSON, BRONWYN A Ot Z01.818 ENCOUNTER FOR OTHER PREPROCEDURAL EXAMIN 05/06/2017 YAIR SAMPSON, BRONWYN A Ot Z88.0 ALLERGY [...] A Ot N20.0 CALCULUS OF KIDNEY 05/09/2017 YAIRBRONWYN MUNOZ MD Ot Z01.818 ENCOUNTER FOR OTHER PREPROCEDURAL EXAMIN 05/09/2017 BRONWYN MAZARIEGOS MD Ot Z88.0 ALLERGY STATUS TO PENICILLIN 05/11/2017 BRONWYN MAZARIEGOS MD Ot N39.0 URINARY TRACT INFECTION, SITE NOT SPECIF 05/16/2017 YAMILET WHITE MD Ot E78.00 PURE HYPERCHOLESTEROLEMIA, UNSPECIFIED 05/16/2017 YAMILET WHITE MD Ot G62.9 POLYNEUROPATHY, UNSPECIFIED 05/16/2017 YAMILET WHITE MD Ot I10 ESSENTIAL (PRIMARY) HYPERTENSION 05/16/2017 YAMILET WHITE MD Ot I48.91 UNSPECIFIED ATRIAL FIBRILLATION 05/16/2017 YAMILET WHITE MD Ot K21.9 GASTRO-ESOPHAGEAL REFLUX DISEASE WITHOUT 05/16/2017 YAMILET WHITE MD Ot T83.032A LEAKAGE OF NEPHROSTOMY CATHETER, INITIAL 05/16/2017 YAMILET WHITE MD Ot Z85.828 PERSONAL HISTORY OF OTHER MALIGNANT NEOP 05/16/2017 YAMILET WHITE MD Ot Z87.19 PERSONAL HISTORY OF OTHER DISEASES OF TH 05/16/2017 CINDY SAMPSON, YAMILET Cerna Ot Z87.442 PERSONAL HISTORY OF URINARY CALCULI 05/27/2017 NOHEMI REGALADO MD Ot A41.52 SEPSIS DUE TO PSEUDOMONAS 05/27/2017 NOHEMI REGALADO MD, Ot 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 (MALLEI) CAUSING DISEASES CL 05/27/2017 NOHEMI REGALADO MD Ot D64.9 ANEMIA, UNSPECIFIED 05/27/2017 NOHEMI REGALADO MD Ot E78.00 PURE HYPERCHOLESTEROLEMIA, UNSPECIFIED 05/27/2017 NOHEMI REGALADO MD, Ot G62.9 POLYNEUROPATHY, UNSPECIFIED 05/27/2017 NOHEMI REGALADO MD, Ot I12.9 HYPERTENSIVE CHRONIC KIDNEY DISEASE W ST 05/27/2017 NOHEMI REGALADO MD Ot I48.0 PAROXYSMAL ATRIAL FIBRILLATION 05/27/2017 NOHEMI REGALADO MD, Ot K21.9 GASTRO-ESOPHAGEAL REFLUX DISEASE WITHOUT 05/27/2017 NOHEMI REGALADO MD, Ot K44.9 DIAPHRAGMATIC HERNIA WITHOUT OBSTRUCTION 05/27/2017 NOHEMI REGALADO MD, Ot M19.91 PRIMARY OSTEOARTHRITIS, UNSPECIFIED SITE 05/27/2017 NOHEMI REGALADO MD, Ot M54.9 DORSALGIA, UNSPECIFIED 05/27/2017 NOHEMI REGALADO MD, Ot N18.3 CHRONIC KIDNEY DISEASE, STAGE 3 (MODERAT 05/27/2017 NOHEMI REGALADO MD, Ot N20.0 CALCULUS OF KIDNEY 05/27/2017 NOHEMI REGALADO MD, Ot N39.0 URINARY TRACT INFECTION, SITE NOT SPECIF 05/27/2017 NOHEMI REGALADO MD, Ot N40.0 BENIGN PROSTATIC HYPERPLASIA WITHOUT LOW 05/27/2017 NOHEMI REGALADO MD, Ot T83.512A I/I REACT D/T NEPHROSTOMY CATHETER, INIT 05/27/2017 NOHEMI REGALADO MD, Ot Z85.828 PERSONAL HISTORY OF OTHER MALIGNANT NEOP 05/27/2017 NOHEMI REGALADO MD, Ot Z87.11 PERSONAL HISTORY OF PEPTIC ULCER DISEASE 05/27/2017 NOHEMI REGALADO MD, Ot Z87.19 PERSONAL HISTORY OF OTHER DISEASES OF TH 05/27/2017 NOHEMI REGALADO MD, Ot A41.52 SEPSIS DUE TO PSEUDOMONAS 05/27/2017 NOHEMI REGALADO MD, Ot 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 (MALLEI) CAUSING DISEASES CL 05/27/2017 NOHEMI REGALADO MD, Ot D64.9 ANEMIA, UNSPECIFIED 05/27/2017 NOHEMI REGALADO MD, Ot E78.00 PURE HYPERCHOLESTEROLEMIA, UNSPECIFIED 05/27/2017 NOHEMI REGALADO MD, Ot G62.9 POLYNEUROPATHY, UNSPECIFIED 05/27/2017 NOHEMI REGALADO MD, Ot I12.9 HYPERTENSIVE CHRONIC KIDNEY DISEASE W ST 05/27/2017 NOHEMI REGALADO MD, Ot I48.0 PAROXYSMAL ATRIAL FIBRILLATION 05/27/2017 NOHEMI REGALADO MD, Ot K21.9 GASTRO-ESOPHAGEAL REFLUX DISEASE WITHOUT 05/27/2017 NOHEMI REGALADO MD, Ot K44.9 DIAPHRAGMATIC HERNIA WITHOUT OBSTRUCTION 05/27/2017 NOHEMI REGALADO MD, Ot M19.91 PRIMARY OSTEOARTHRITIS, UNSPECIFIED SITE 05/27/2017 NOHEMI REGALADO MD, Ot M54.9 DORSALGIA, UNSPECIFIED 05/27/2017 NOHEMI REGALADO MD, Ot N18.3 CHRONIC KIDNEY DISEASE, STAGE 3 (MODERAT 05/27/2017 NOHEMI REGALADO MD, Ot N20.0 CALCULUS OF KIDNEY 05/27/2017 NOHEMI REGALADO MD, Ot N39.0 URINARY TRACT INFECTION, SITE NOT SPECIF 05/27/2017 NOHEMI REGALADO MD, Ot N40.0 BENIGN PROSTATIC HYPERPLASIA WITHOUT LOW 05/27/2017 NOHEMI REGALADO MD, Ot T83.512A I/I REACT D/T NEPHROSTOMY CATHETER, INIT 05/27/2017 NOHEMI REGALADO MD, Ot Z85.828 PERSONAL HISTORY OF OTHER MALIGNANT NEOP 05/27/2017 NOHEMI REGALADO MD, Ot Z87.11 PERSONAL HISTORY OF PEPTIC ULCER DISEASE 05/27/2017 NOHEMI REGALADO MD, Ot Z87.19 PERSONAL HISTORY OF OTHER DISEASES OF TH 05/31/2017 BRONWYN MAZARIEGOS MD Ot N20.1 CALCULUS OF URETER 05/31/2017 BRONWYN MAZARIEGOS MD Ot 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 05/31/2017 NOHEMI REGALADO MD, Ot A04.72 ENTEROCOLITIS D/T CLOSTRIDIUM DIFFICILE, 05/31/2017 NOHEMI REGALADO MD, Ot A41.52 SEPSIS DUE TO PSEUDOMONAS 05/31/2017 NOHEMI REGALADO MD, Ot 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 (MALLEI) CAUSING DISEASES CL 05/31/2017 NOHEMI REGALADO MD, Ot D64.9 ANEMIA, UNSPECIFIED 05/31/2017 NOHEMI REGALADO MD, Ot E78.00 PURE HYPERCHOLESTEROLEMIA, UNSPECIFIED 05/31/2017 NOHEMI REGALADO MD, Ot E78.5 HYPERLIPIDEMIA, UNSPECIFIED 05/31/2017 NOHEMI REGALADO MD, Ot G62.9 POLYNEUROPATHY, UNSPECIFIED 05/31/2017 NOHEMI REGALADO MD, Ot I12.9 HYPERTENSIVE CHRONIC KIDNEY DISEASE W ST 05/31/2017 NOHEMI REGALADO MD, Ot I48.0 PAROXYSMAL ATRIAL FIBRILLATION 05/31/2017 NOHEMI REGALADO MD, Ot I49.3 VENTRICULAR PREMATURE DEPOLARIZATION 05/31/2017 NOHEMI REGALADO MD, Ot 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 05/31/2017 NOHEMI REGALADO MD, Ot K21.9 GASTRO-ESOPHAGEAL REFLUX DISEASE WITHOUT 05/31/2017 NOHEMI REGALADO MD, Ot K44.9 DIAPHRAGMATIC HERNIA WITHOUT OBSTRUCTION 05/31/2017 NOHEMI REGALADO MD, Ot M19.91 PRIMARY OSTEOARTHRITIS, UNSPECIFIED SITE 05/31/2017 NOHEMI REGALADO MD, Ot M54.9 DORSALGIA, UNSPECIFIED 05/31/2017 NOHEMI REGALADO MD, Ot N18.3 CHRONIC KIDNEY DISEASE, STAGE 3 (MODERAT 05/31/2017 NOHEMI REGALADO MD, Ot N20.2 CALCULUS OF KIDNEY WITH CALCULUS OF URET 05/31/2017 NOHEMI REGALADO MD, Ot N39.0 URINARY TRACT INFECTION, SITE NOT SPECIF 05/31/2017 NOHEMI REGALADO MD, Ot N40.0 BENIGN PROSTATIC HYPERPLASIA WITHOUT LOW 05/31/2017 NOHEMI REGALADO MD, Ot T83.512A I/I REACT D/T NEPHROSTOMY CATHETER, INIT 05/31/2017 NOHEMI REGALADO MD, Ot Z85.828 PERSONAL HISTORY OF OTHER MALIGNANT NEOP 05/31/2017 NOHEMI REGALADO MD, Ot Z87.11 PERSONAL HISTORY OF PEPTIC ULCER DISEASE 05/31/2017 NOHEMI REGALADO MD, Ot Z87.19 PERSONAL HISTORY OF OTHER DISEASES OF TH 05/31/2017 BRONWYN MAZARIEGOS MD Ot N20.0 CALCULUS OF KIDNEY 05/31/2017 BRONWYN MAZARIEGOS MD, Ot N39.0 URINARY TRACT INFECTION, SITE NOT SPECIF 06/02/2017 BRONWYN MAZARIEGOS MD Ot N20.1 CALCULUS OF URETER 06/02/2017 BRONWYN MAZARIEGOS MD Ot 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 06/03/2017 BRONWYN MAZARIEGOS MD Ot N20.0 CALCULUS OF KIDNEY 06/04/2017 DYLON HERNANDEZ MD Ot E78.2 MIXED HYPERLIPIDEMIA 06/04/2017 DYLON HERNNADEZ MD Ot I44.4 LEFT ANTERIOR FASCICULAR BLOCK 06/04/2017 DYLON HERNANDEZ MD Ot I48.0 PAROXYSMAL ATRIAL FIBRILLATION 06/04/2017 DYLON HERNANDEZ MD Ot 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 06/04/2017 YAIR SAMPSON, BRONWYN Zelaya Ot Z53.9 PROCEDURE AND TREATMENT NOT CARRIED OUT, Procedures Code Description Performed By Performed On 45.16 ESOPHAGOGASTRODUODENOSCOPY [ EGD] W/CLOSE 05/12/2009 [id number] DRAINAGE OF RIGHT KIDNEY WITH DRAINAGE D 03/30/2017 [id number] FLUOROSCOPY OF RIGHT KIDNEY USING LOW OS 03/30/2017 [id number] FRAGMENTATION IN RIGHT KIDNEY PELVIS, EX 04/06/2017 [id number] DRAINAGE OF RIGHT URETER WITH DRAINAGE D 05/30/2017 [id number] FRAGMENTATION IN RIGHT URETER, ENDO 05/30/2017 Results Test Result Range Complete blood count [...] OF GROWTH Isolated NRG Bacterial blood culture [id number] NR FREE TEXT ENTRY 2 REPORTED 04/01 ON BLOOD CULTURE [id number] NRG Influenza virus A and B antigen detection - 03/30/17 00:19 FLU RESULT NEGATIVE FOR INFLUENZA A AND B ANTIGENS BY IA NR Bacterial blood culture - 03/30/17 00:28 FREE [place] 0732, 12--17 NRG QUANTITY OF GROWTH Isolated NRG Bacterial blood culture [id number] BANNER Bacterial susceptibility panel - 03/30/17 00:28 Gentamicin [...] culture - 03/30/17 00:35 Bacterial urine culture [id number] NRG COLONY COUNT <10,000 NRG FTX;REPORTABLE SENSITIVITY [...] FREE TEXT EXTERNAL REFER TO BLOOD CULTURE [id number] NRG QUANTITY OF GROWTH Moderate Growth NRG Bacterial body fluid culture [id number] NRG Complete blood count (CBC) with automated white [...] culture - 05/10/17 14:45 Bacterial urine culture [id number] NRG COLONY COUNT 10,000/ML - 100,000/ML NRG FTX;REPORTABLE SENSITIVITIES REPORTED 05/12/17 9:40 NRG Bacterial urine culture - 05/10/17 14:45 Bacterial urine culture [id number] NRG COLONY COUNT <10,000 NRG FTX;REPORTABLE REFER TO SENSITIVITIES ON URINE NRG FREE TEXT ENTRY 2 CULTURE M482. BANNER Bacterial susceptibility panel - 05/10/17 14:45 Gentamicin [...] susceptibility test by minimum inhibitory concentration - BANNER Bacterial susceptibility panel - 05/10/17 14:45 Gentamicin [...] susceptibility test by minimum inhibitory concentration 2 BANNER Bacterial susceptibility panel - 05/10/17 14:45 Gentamicin susceptibility test by minimum inhibitory concentration < = NRG Tobramycin susceptibility test by minimum inhibitory concentration < = NRG Piperacillin/tazobactam susceptibility test by minimum inhibitory concentration S NRG Ciprofloxacin susceptibility test by minimum inhibitory concentration <= NRG Meropenem susceptibility test by minimum inhibitory concentration 1 NRG Cefepime susceptibility test by minimum inhibitory concentration 8 NRG Complete blood count (CBC) with automated white blood cell (WBC) differential - 05/16/17 09:57 Blood leukocytes automated count (number/volume) 8.8 10*3/uL 4.3-11.0 Blood erythrocytes automated count (number/volume) 3.35 10*6/uL 4.35-5.85 Venous blood hemoglobin measurement (mass/volume) 10.7 g/dL 13.3-17.7 Blood hematocrit (volume fraction) 33 % 40-54 Automated erythrocyte mean corpuscular volume 97 [foz_us] 80-99 Automated erythrocyte mean corpuscular hemoglobin (mass per erythrocyte) 32 pg 25-34 Automated erythrocyte mean corpuscular hemoglobin concentration measurement ( mass/volume) 33 g/dL 32-36 Automated erythrocyte distribution width ratio 14.7 % 10.0-14.5 Automated blood platelet count (count/volume) 267 10*3/uL 130-400 Automated blood platelet mean volume measurement 10.2 [foz_us] 7.4-10.4 Automated blood neutrophils/100 leukocytes 66 % 42-75 Automated blood lymphocytes/100 leukocytes 11 % 12-44 Blood monocytes/100 leukocytes 19 % 0-12 Automated blood eosinophils/100 leukocytes 3 % 0-10 Automated blood basophils/100 leukocytes 0 % 0-10 Blood neutrophils automated count (number/volume) 5.8 10*3 1.8-7.8 Blood lymphocytes automated count (number/volume) 1.0 10*3 1.0-4.0 Blood monocytes automated count (number/volume) 1.7 10*3 0.0-1.0 Automated eosinophil count 0.2 10*3/uL 0.0-0.3 Automated blood basophil count (count/volume) 0.0 10*3/uL 0.0-0.1 Comprehensive metabolic panel - 05/16/17 09:57 Serum or plasma sodium measurement (moles/volume) 139 mmol/L 135-145 Serum or plasma potassium measurement (moles/volume) 4.2 mmol/L 3.6-5.0 Serum or plasma chloride measurement (moles/volume) 105 mmol/L 98-107 Carbon dioxide 25 mmol/L 21-32 Serum or plasma anion gap determination (moles/volume) 9 mmol/L 5-14 Serum or plasma urea nitrogen measurement (mass/volume) 36 mg/dL 7-18 Serum or plasma creatinine measurement (mass/volume) 1.82 mg/dL 0.60-1.30 Serum or plasma urea nitrogen/creatinine mass ratio 20 NRG Serum or plasma creatinine measurement with calculation of estimated glomerular filtration rate 36 NRG Serum or plasma glucose measurement (mass/volume) 95 mg/dL 70-105 Serum or plasma calcium measurement (mass/volume) 9.4 mg/dL 8.5-10.1 Serum or plasma total bilirubin measurement (mass/volume) 0.2 mg/dL 0.1-1.0 Serum or plasma alkaline phosphatase measurement (enzymatic activity/volume) 58 U/L 40-136 Serum or plasma aspartate aminotransferase measurement (enzymatic activity/ volume) 16 U/L 5-34 Serum or plasma alanine aminotransferase measurement (enzymatic activity/volume ) 12 U/L 0-55 Serum or plasma protein measurement (mass/volume) 7.4 g/dL 6.4-8.2 Serum or plasma albumin measurement (mass/volume) 4.0 g/dL 3.2-4.5 Blood manual differential performed detection - 05/16/17 09:57 Blood monocytes/100 leukocytes 11 % NRG Manual blood segmented neutrophils/100 leukocytes 71 % NRG Blood band neutrophils/100 leukocytes 0 % NRG Manual blood lymphocytes/100 leukocytes 11 % NRG Manual eosinophils/100 leukocytes in nose 7 % NRG Manual blood basophils/100 leukocytes 0 % NRG Blood erythrocyte morphology finding identification NORMAL NRG Complete urinalysis with reflex to culture - 05/16/17 10:04 Urine color determination YELLOW NRG Urine clarity determination CLEAR NRG Urine pH measurement by test strip 6 5-9 Specific gravity of urine by test strip 1.015 1.016- 1.022 Urine protein assay by test strip, semi-quantitative 3+ NEGATIVE Urine glucose detection by automated test strip NEGATIVE NEGATIVE Erythrocytes detection in urine sediment by light microscopy 1+ NEGATIVE Urine ketones detection by automated test [...] count by microscopy (number/high power field ) [HPF] NRG Bacteria detection in urine sediment by light microscopy MODERATE NRG Squamous epithelial cells detection in urine sediment by light microscopy NONE NRG Crystals detection in urine sediment by light microscopy NONE NRG Casts detection in urine sediment by light microscopy NONE NRG Mucus detection in urine sediment by light microscopy NEGATIVE NRG Complete urinalysis with reflex to culture YES NRG Bacterial urine culture - 05/16/17 10:04 Bacterial urine culture [id number] NRG COLONY COUNT >100,000/ML NRG FTX;REPORTABLE SENSITIVITY REPORTED 05/17/17 17:10 NR Bacterial susceptibility panel - 05/16/17 10:04 Gentamicin susceptibility test by minimum inhibitory concentration [...] Nitrofurantoin susceptibility test by minimum inhibitory concentration 32 NRG Aztreonam susceptibility test by minimum inhibitory concentration S NRG Extended spectrum beta lactamase (ESBL) producing bacteria susceptibility test by minimum inhibitory concentration NEG NRG Complete urinalysis with reflex to culture - 05/25/17 13:40 Urine color determination YELLOW NRG Urine clarity determination CLEAR NRG Urine pH measurement by test strip 7 5-9 Specific gravity of urine by test strip 1.010 1.016- 1.022 Urine protein assay by test [...] urine sediment by light microscopy NONE NRG Crystals detection in urine sediment by light microscopy NONE NRG Casts detection in urine sediment by light microscopy NONE NRG Mucus detection in urine sediment by light microscopy NEGATIVE NRG Complete urinalysis with reflex to culture YES NRG Bacterial urine culture - 05/25/17 13:40 Bacterial urine culture [id number] NRG COLONY COUNT >100,000/ML NRG FTX;REPORTABLE SENSITIVITY REPORTED AT 0859, 05-27-17 NRG Bacterial susceptibility panel - 05/25/17 13:40 Gentamicin susceptibility test by minimum inhibitory concentration < = NRG Tobramycin susceptibility test by minimum inhibitory concentration < = NRG Piperacillin/tazobactam susceptibility test by minimum inhibitory concentration S NRG Ciprofloxacin susceptibility test by minimum inhibitory concentration 2 NRG Meropenem susceptibility test by minimum inhibitory concentration 1 NRG Cefepime susceptibility test by minimum inhibitory concentration 8 NRG Complete urinalysis with reflex to culture - 05/25/17 13:45 Urine color determination YELLOW NRG Urine clarity determination CLEAR NRG Urine pH measurement by test strip 7 5-9 Specific gravity of urine by test strip 1.010 1.016- 1.022 Urine protein assay by test [...] urine sediment by light microscopy NONE NRG Crystals detection in urine sediment by light microscopy NONE NRG Casts detection in urine sediment by light microscopy NONE NRG Mucus detection in urine sediment by light microscopy NEGATIVE NRG Complete urinalysis with reflex to culture YES NRG Bacterial urine culture - 05/25/17 13:45 Bacterial urine culture [id number] NRG COLONY COUNT >100,000/ML NRG FTX;REPORTABLE REFER TO M1434 FOR STUDIES NRG URINE CULTURE RESULTS PLUS NRG Complete blood count (CBC) with automated white blood cell (WBC) differential - 05/25/17 14:00 Blood leukocytes automated count (number/volume) 23.1 10*3/uL 4.3-11.0 Blood erythrocytes automated count (number/volume) 3.51 10*6/uL 4.35-5.85 Venous blood hemoglobin measurement (mass/volume) 11.3 g/dL 13.3-17.7 Blood hematocrit (volume fraction) 34 % 40-54 Automated erythrocyte mean corpuscular volume 97 [foz_us] 80-99 Automated erythrocyte mean corpuscular hemoglobin (mass per erythrocyte) 32 pg 25-34 Automated erythrocyte mean corpuscular hemoglobin concentration measurement ( mass/volume) 33 g/dL 32-36 Automated erythrocyte distribution width ratio 14.7 % 10.0-14.5 Automated blood platelet count (count/volume) 299 10*3/uL 130-400 Automated blood platelet mean volume measurement 10.0 [foz_us] 7.4-10.4 Automated blood neutrophils/100 leukocytes 85 % 42-75 Automated blood lymphocytes/100 leukocytes 3 % 12-44 Blood monocytes/100 leukocytes 12 % 0-12 Automated blood eosinophils/100 leukocytes 0 % 0-10 Automated blood basophils/100 leukocytes 0 % 0-10 Blood neutrophils automated count (number/volume) 19.5 10*3 1.8-7.8 Blood lymphocytes automated count (number/volume) 0.8 10*3 1.0-4.0 Blood monocytes automated count (number/volume) 2.8 10*3 0.0-1.0 Automated eosinophil count 0.0 10*3/uL 0.0-0.3 Automated blood basophil count (count/volume) 0.0 10*3/uL 0.0-0.1 PT panel in platelet poor plasma by coagulation assay - 05/25/17 14:00 Prothrombin time (PT) in platelet poor plasma by coagulation assay 14.9 s 12.2-14.7 INR in platelet poor plasma or blood by coagulation assay 1.2 0.8-1.4 Activated partial thromboplastin time (aPTT) in platelet poor plasma bycoagulation assay - 05/25/17 14:00 Activated partial thromboplastin time (aPTT) in platelet poor plasma bycoagulation assay 27 s 24-35 Blood lactic acid measurement (moles/volume) - 05/25/17 14:00 Blood lactic acid measurement (moles/volume) 1.89 mmol/L 0.50-2.00 Blood manual differential performed detection - 05/25/17 14:00 Blood monocytes/100 leukocytes 8 % NRG Manual blood segmented neutrophils/100 leukocytes 89 % NRG Blood band neutrophils/100 leukocytes 0 % NRG Manual blood lymphocytes/100 leukocytes 3 % NRG Manual eosinophils/100 leukocytes in nose 0 % NRG Manual blood basophils/100 leukocytes 0 % NRG Blood erythrocyte morphology finding identification NORMAL NRG Comprehensive metabolic panel - 05/25/17 14:00 Serum or plasma sodium measurement (moles/volume) 136 mmol/L 135-145 Serum or plasma potassium measurement (moles/volume) 4.3 mmol/L 3.6-5.0 Serum or plasma chloride measurement (moles/volume) 101 mmol/L 98-107 Carbon dioxide 23 mmol/L 21-32 Serum or plasma anion gap determination (moles/volume) 12 mmol/L 5-14 Serum or plasma urea nitrogen measurement (mass/volume) 29 mg/dL 7-18 Serum or plasma creatinine measurement (mass/volume) 1.68 mg/dL 0.60-1.30 Serum or plasma urea nitrogen/creatinine mass ratio 17 NRG Serum or plasma creatinine measurement with calculation of estimated glomerular filtration rate 39 NRG Serum or plasma glucose measurement (mass/volume) 146 mg/dL 70-105 Serum or plasma calcium measurement (mass/volume) 9.3 mg/dL 8.5-10.1 Serum or plasma total bilirubin measurement (mass/volume) 0.7 mg/dL 0.1-1.0 Serum or plasma alkaline phosphatase measurement (enzymatic activity/volume) 51 U/L 40-136 Serum or plasma aspartate aminotransferase measurement (enzymatic activity/ volume) 18 U/L 5-34 Serum or plasma alanine aminotransferase measurement (enzymatic activity/volume ) 9 U/L 0-55 Serum or plasma protein measurement (mass/volume) 7.6 g/dL 6.4-8.2 Serum or plasma albumin measurement (mass/volume) 4.1 g/dL 3.2-4.5 Bacterial blood culture - 05/25/17 14:00 Bacterial blood culture NG NRG Bacterial blood culture - 05/25/17 14:30 Bacterial blood culture NG NRG Complete blood count (CBC) with automated white blood cell (WBC) differential - 05/26/17 06:08 Blood leukocytes automated count (number/volume) 11.2 10*3/uL 4.3-11.0 Blood erythrocytes automated count (number/volume) 3.05 10*6/uL 4.35-5.85 Venous blood hemoglobin measurement (mass/volume) 9.6 g/dL 13.3-17.7 Blood hematocrit (volume fraction) 30 % 40-54 Automated erythrocyte mean corpuscular volume 97 [foz_us] 80-99 Automated erythrocyte mean corpuscular hemoglobin (mass per erythrocyte) 32 pg 25-34 Automated erythrocyte mean corpuscular hemoglobin concentration measurement ( mass/volume) 32 g/dL 32-36 Automated erythrocyte distribution width ratio 14.8 % 10.0-14.5 Automated blood platelet count (count/volume) 200 10*3/uL 130-400 Automated blood platelet mean volume measurement 10.4 [foz_us] 7.4-10.4 Automated blood neutrophils/100 leukocytes 76 % 42-75 Automated blood lymphocytes/100 leukocytes 8 % 12-44 Blood monocytes/100 leukocytes 16 % 0-12 Automated blood eosinophils/100 leukocytes 0 % 0-10 Automated blood basophils/100 leukocytes 0 % 0-10 Blood neutrophils automated count (number/volume) 8.5 10*3 1.8-7.8 Blood lymphocytes automated count (number/volume) 0.8 10*3 1.0-4.0 Blood monocytes automated count (number/volume) 1.8 10*3 0.0-1.0 Automated eosinophil count 0.0 10*3/uL 0.0-0.3 Automated blood basophil count (count/volume) 0.0 10*3/uL 0.0-0.1 Whole blood basic metabolic panel - 05/26/17 06:08 Serum or plasma sodium measurement (moles/volume) 139 mmol/L 135-145 Serum or plasma potassium measurement (moles/volume) 4.6 mmol/L 3.6-5.0 Serum or plasma chloride measurement (moles/volume) 109 mmol/L 98-107 Carbon dioxide 21 mmol/L 21-32 Serum or plasma anion gap determination (moles/volume) 9 mmol/L 5-14 Serum or plasma urea nitrogen measurement (mass/volume) 28 mg/dL 7-18 Serum or plasma creatinine measurement (mass/volume) 1.68 mg/dL 0.60-1.30 Serum or plasma urea nitrogen/creatinine mass ratio 17 NRG Serum or plasma creatinine measurement with calculation of estimated glomerular filtration rate 39 NRG Serum or plasma glucose measurement (mass/volume) 125 mg/dL 70-105 Serum or plasma calcium measurement (mass/volume) 8.4 mg/dL 8.5-10.1 Whole blood basic metabolic panel - 05/27/17 05:46 Serum or plasma sodium measurement (moles/volume) 138 mmol/L 135-145 Serum or plasma potassium measurement (moles/volume) 4.5 mmol/L 3.6-5.0 Serum or plasma chloride measurement (moles/volume) 110 mmol/L 98-107 Carbon dioxide 20 mmol/L 21-32 Serum or plasma anion gap determination (moles/volume) 8 mmol/L 5-14 Serum or plasma urea nitrogen measurement (mass/volume) 24 mg/dL 7-18 Serum or plasma creatinine measurement (mass/volume) 1.26 mg/dL 0.60-1.30 Serum or plasma urea nitrogen/creatinine mass ratio 19 NRG Serum or plasma creatinine measurement with calculation of estimated glomerular filtration rate 54 NRG Serum or plasma glucose measurement (mass/volume) 117 mg/dL 70-105 Serum or plasma calcium measurement (mass/volume) 8.7 mg/dL 8.5-10.1 Complete blood count (CBC) with automated white blood cell (WBC) differential - 05/27/17 05:46 Blood leukocytes automated count (number/volume) 6.7 10*3/uL 4.3-11.0 Blood erythrocytes automated count (number/volume) 2.96 10*6/uL 4.35-5.85 Venous blood hemoglobin measurement (mass/volume) 9.4 g/dL 13.3-17.7 Blood hematocrit (volume fraction) 29 % 40-54 Automated erythrocyte mean corpuscular volume 97 [foz_us] 80-99 Automated erythrocyte mean corpuscular hemoglobin (mass per erythrocyte) 32 pg 25-34 Automated erythrocyte mean corpuscular hemoglobin concentration measurement ( mass/volume) 33 g/dL 32-36 Automated erythrocyte distribution width ratio 14.7 % 10.0-14.5 Automated blood platelet count (count/volume) 187 10*3/uL 130-400 Automated blood platelet mean volume measurement 10.8 [foz_us] 7.4-10.4 Automated blood neutrophils/100 leukocytes 61 % 42-75 Automated blood lymphocytes/100 leukocytes 15 % 12-44 Blood monocytes/100 leukocytes 22 % 0-12 Automated blood eosinophils/100 leukocytes 1 % 0-10 Automated blood basophils/100 leukocytes 0 % 0-10 Blood neutrophils automated count (number/volume) 4.1 10*3 1.8-7.8 Blood lymphocytes automated count (number/volume) 1.0 10*3 1.0-4.0 Blood monocytes automated count (number/volume) 1.5 10*3 0.0-1.0 Automated eosinophil count 0.1 10*3/uL 0.0-0.3 Automated blood basophil count (count/volume) 0.0 10*3/uL 0.0-0.1 Complete blood count (CBC) with automated white blood cell (WBC) differential - 05/29/17 11:00 Blood leukocytes automated count (number/volume) 5.9 10*3/uL 4.3-11.0 Blood erythrocytes automated count (number/volume) 3.39 10*6/uL 4.35-5.85 Venous blood hemoglobin measurement (mass/volume) 10.8 g/dL 13.3-17.7 Blood hematocrit (volume fraction) 33 % 40-54 Automated erythrocyte mean corpuscular volume 96 [foz_us] 80-99 Automated erythrocyte mean corpuscular hemoglobin (mass per erythrocyte) 32 pg 25-34 Automated erythrocyte mean corpuscular hemoglobin concentration measurement ( mass/volume) 33 g/dL 32-36 Automated erythrocyte distribution width ratio 14.5 % 10.0-14.5 Automated blood platelet count (count/volume) 241 10*3/uL 130-400 Automated blood platelet mean volume measurement 10.7 [foz_us] 7.4-10.4 Automated blood neutrophils/100 leukocytes 60 % 42-75 Automated blood lymphocytes/100 leukocytes 22 % 12-44 Blood monocytes/100 leukocytes 15 % 0-12 Automated blood eosinophils/100 leukocytes 3 % 0-10 Automated blood basophils/100 leukocytes 1 % 0-10 Blood neutrophils automated count (number/volume) 3.5 10*3 1.8-7.8 Blood lymphocytes automated count (number/volume) 1.3 10*3 1.0-4.0 Blood monocytes automated count (number/volume) 0.9 10*3 0.0-1.0 Automated eosinophil count 0.2 10*3/uL 0.0-0.3 Automated blood basophil count (count/volume) 0.1 10*3/uL 0.0-0.1 Whole blood basic metabolic panel - 05/29/17 11:00 Serum or plasma sodium measurement (moles/volume) 140 mmol/L 135-145 Serum or plasma potassium measurement (moles/volume) 4.7 mmol/L 3.6-5.0 Serum or plasma chloride measurement (moles/volume) 107 mmol/L 98-107 Carbon dioxide 20 mmol/L 21-32 Serum or plasma anion gap determination (moles/volume) 13 mmol/L 5-14 Serum or plasma urea nitrogen measurement (mass/volume) 25 mg/dL 7-18 Serum or plasma creatinine measurement (mass/volume) 1.29 mg/dL 0.60-1.30 Serum or plasma urea nitrogen/creatinine mass ratio 19 NRG Serum or plasma creatinine measurement with calculation of estimated glomerular filtration rate 53 NRG Serum or plasma glucose measurement (mass/volume) 95 mg/dL 70-105 Serum or plasma calcium measurement (mass/volume) 9.4 mg/dL 8.5-10.1 Methicillin resistant Staphylococcus aureus (MRSA) screening culture - 11:20 Methicillin resistant Staphylococcus aureus (MRSA) screening culture NEG NRG C DIFFICILE AG + TOXIN A/B. - 05/29/17 15:40 CALL POSITIVES (F1 HELP) CALLED TO ISA IZAGUIRRE 05/29/17 16:25 BY Yue HORTON NRG SPECIAL CONTACT SPECIAL CONTACT PRECAUTIONS NEEDED NRG RESULTS POSITIVE FOR ANTIGEN AND TOXIN A/B NRG Measurement of weight of kidney stone - 05/30/17 11:00 Measurement of weight of kidney stone 902 % NRG Kidney stone composition determination See Note NRG Count of number of calculi Numerous NRG Size of stone Various NRG Complete blood count (CBC) with automated white blood cell (WBC) differential - 06/04/17 13:10 Blood leukocytes automated count (number/volume) 17.1 10*3/uL 4.3-11.0 Blood erythrocytes automated count (number/volume) 3.46 10*6/uL 4.35-5.85 Venous blood hemoglobin measurement (mass/volume) 10.8 g/dL 13.3-17.7 Blood hematocrit (volume fraction) 33 % 40-54 Automated erythrocyte mean corpuscular volume 96 [foz_us] 80-99 Automated erythrocyte mean corpuscular hemoglobin (mass per erythrocyte) 31 pg 25-34 Automated erythrocyte mean corpuscular hemoglobin concentration measurement ( mass/volume) 33 g/dL 32-36 Automated erythrocyte distribution width ratio 14.9 % 10.0-14.5 Automated blood platelet count (count/volume) 277 10*3/uL 130-400 Automated blood platelet mean volume measurement 9.9 [foz_us] 7.4-10.4 Automated blood neutrophils/100 leukocytes 76 % 42-75 Automated blood lymphocytes/100 leukocytes 6 % 12-44 Blood monocytes/100 leukocytes 18 % 0-12 Automated blood eosinophils/100 leukocytes 0 % 0-10 Automated blood basophils/100 leukocytes 0 % 0-10 Blood neutrophils automated count (number/volume) 13.1 10*3 1.8-7.8 Blood lymphocytes automated count (number/volume) 1.0 10*3 1.0-4.0 Blood monocytes automated count (number/volume) 3.0 10*3 0.0-1.0 Automated eosinophil count 0.0 10*3/uL 0.0-0.3 Automated blood basophil count (count/volume) 0.0 10*3/uL 0.0-0.1 PT panel in platelet poor plasma by coagulation assay - 06/04/17 13:10 Prothrombin time (PT) in platelet poor plasma by coagulation assay 14.5 s 12.2-14.7 INR in platelet poor plasma or blood by coagulation assay 1.1 0.8-1.4 Activated partial thromboplastin time (aPTT) in platelet poor plasma bycoagulation assay - 06/04/17 13:10 Activated partial thromboplastin time (aPTT) in platelet poor plasma bycoagulation assay 28 s 24-35 Comprehensive metabolic panel - 06/04/17 13:10 Serum or plasma sodium measurement (moles/volume) 137 mmol/L 135-145 Serum or plasma potassium measurement (moles/volume) 4.7 mmol/L 3.6-5.0 Serum or plasma chloride measurement (moles/volume) 104 mmol/L 98-107 Carbon dioxide 21 mmol/L 21-32 Serum or plasma anion gap determination (moles/volume) 12 mmol/L 5-14 Serum or plasma urea nitrogen measurement (mass/volume) 34 mg/dL 7-18 Serum or plasma creatinine measurement (mass/volume) 1.50 mg/dL 0.60-1.30 Serum or plasma urea nitrogen/creatinine mass ratio 23 NRG Serum or plasma creatinine measurement with calculation of estimated glomerular filtration rate 44 NRG Serum or plasma glucose measurement (mass/volume) 122 mg/dL 70-105 Serum or plasma calcium measurement (mass/volume) 9.1 mg/dL 8.5-10.1 Serum or plasma total bilirubin measurement (mass/volume) 0.5 mg/dL 0.1-1.0 Serum or plasma alkaline phosphatase measurement (enzymatic activity/volume) 52 U/L 40-136 Serum or plasma aspartate aminotransferase measurement (enzymatic activity/ volume) 23 U/L 5-34 Serum or plasma alanine aminotransferase measurement (enzymatic activity/volume ) 19 U/L 0-55 Serum or plasma protein measurement (mass/volume) 7.1 g/dL 6.4-8.2 Serum or plasma albumin measurement (mass/volume) 3.8 g/dL 3.2-4.5 Blood lactic acid measurement (moles/volume) - 06/04/17 13:10 Blood lactic acid measurement (moles/volume) 2.12 mmol/L 0.50-2.00 Blood manual differential performed detection - 06/04/17 13:10 Blood monocytes/100 leukocytes 15 % NR Manual blood segmented neutrophils/100 leukocytes 79 % NR Manual blood lymphocytes/100 leukocytes 6 % NR Blood stomatocytes detection by light microscopy SLIGHT NR Bacterial blood culture - 06/04/17 13:10 FREE TEXT EXTERNAL [place]ENSITIVITY [place]ED AT 0734, 2-5-18 NRG QUANTITY OF GROWTH . BANNER Bacterial blood culture SEE COMMEN [facility] Bacterial susceptibility panel - 06/04/17 13:10 Gentamicin susceptibility test by minimum inhibitory concentration < = NRG Trimethoprim/sulfamethoxazole susceptibility test by minimum inhibitoryconcentration R NR Ampicillin susceptibility test by minimum inhibitory concentration > = NRG Tobramycin susceptibility test by minimum inhibitory concentration < = NRG Cefazolin susceptibility test by minimum inhibitory concentration > = NR Ceftriaxone susceptibility test by minimum inhibitory concentration R NRG Ampicillin/sulbactam susceptibility test by minimum inhibitory concentration R NR Ciprofloxacin susceptibility test by minimum inhibitory concentration >= NRG Meropenem susceptibility test by minimum inhibitory concentration < = NRG Aztreonam susceptibility test by minimum inhibitory concentration R NRG Extended spectrum beta lactamase (ESBL) producing bacteria susceptibility test by minimum inhibitory concentration + NRG Bacterial blood culture - 06/04/17 13:38 Bacterial blood culture NG NRG Complete urinalysis with reflex to culture - 06/04/17 13:48 Urine color determination YELLOW NRG Urine clarity determination SLIGHTLY CLOUDY NRG Urine pH measurement by test strip 6 5-9 Specific gravity of urine by test strip 1.015 1.016- 1.022 Urine protein assay by test strip, semi-quantitative 2+ NEGATIVE Urine glucose detection by automated test strip NEGATIVE NEGATIVE Erythrocytes detection in urine sediment by [...] erythrocyte count by microscopy (number/high power field) NONE NRG Automated urine sediment leukocyte count by microscopy (number/high power field ) TNTC NRG Bacteria detection in urine sediment by light microscopy MODERATE NRG Crystals detection in urine sediment by light microscopy NONE NRG Casts detection in urine sediment by light microscopy NONE NRG Mucus detection in urine sediment by light microscopy NEGATIVE NRG Complete urinalysis with reflex to culture YES NRG Bacterial urine culture - 06/04/17 13:48 Bacterial urine culture [id number] NRG COLONY COUNT >100,000/ML NRG FTX;REPORTABLE SENSITIVITY REPORTED 06/05/17 15:50 NRG Bacterial susceptibility panel - 06/04/17 13:48 Gentamicin susceptibility test by minimum inhibitory concentration [...] test by minimum inhibitory concentration + NRG Cefepime susceptibility test by minimum inhibitory concentration R NRG Serum or plasma lactate measurement (moles/volume) - 06/04/17 15:07 Serum or plasma lactate measurement (moles/volume) 1.79 mmol/L 0.50-2.00 Complete blood count (CBC) with automated white blood cell (WBC) differential - 06/05/17 04:00 Blood leukocytes automated count (number/volume) 14.6 10*3/uL 4.3-11.0 Blood erythrocytes automated count (number/volume) 3.06 10*6/uL 4.35-5.85 Venous blood hemoglobin measurement (mass/volume) 9.5 g/dL 13.3-17.7 Blood hematocrit (volume fraction) 30 % 40-54 Automated erythrocyte mean corpuscular volume 96 [foz_us] 80-99 Automated erythrocyte mean corpuscular hemoglobin (mass per erythrocyte) 31 pg 25-34 Automated erythrocyte mean corpuscular hemoglobin concentration measurement ( mass/volume) 32 g/dL 32-36 Automated erythrocyte distribution width ratio 14.9 % 10.0-14.5 Automated blood platelet count (count/volume) 185 10*3/uL 130-400 Automated blood platelet mean volume measurement 10.7 [foz_us] 7.4-10.4 Automated blood neutrophils/100 leukocytes 75 % 42-75 Automated blood lymphocytes/100 leukocytes 6 % 12-44 Blood monocytes/100 leukocytes 19 % 0-12 Automated blood eosinophils/100 leukocytes 0 % 0-10 Automated blood basophils/100 leukocytes 0 % 0-10 Blood neutrophils automated count (number/volume) 10.9 10*3 1.8-7.8 Blood lymphocytes automated count (number/volume) 0.9 10*3 1.0-4.0 Blood monocytes automated count (number/volume) 2.7 10*3 0.0-1.0 Automated eosinophil count 0.0 10*3/uL 0.0-0.3 Automated blood basophil count (count/volume) 0.0 10*3/uL 0.0-0.1 Comprehensive metabolic panel - 06/05/17 04:00 Serum or plasma sodium measurement (moles/volume) 134 mmol/L 135-145 Serum or plasma potassium measurement (moles/volume) 4.2 mmol/L 3.6-5.0 Serum or plasma chloride measurement (moles/volume) 107 mmol/L 98-107 Carbon dioxide 19 mmol/L 21-32 Serum or plasma anion gap determination (moles/volume) 8 mmol/L 5-14 Serum or plasma urea nitrogen measurement (mass/volume) 27 mg/dL 7-18 Serum or plasma creatinine measurement (mass/volume) 1.20 mg/dL 0.60-1.30 Serum or plasma urea nitrogen/creatinine mass ratio 23 NRG Serum or plasma creatinine measurement with calculation of estimated glomerular filtration rate 58 NRG Serum or plasma glucose measurement (mass/volume) 115 mg/dL 70-105 Serum or plasma calcium measurement (mass/volume) 8.5 mg/dL 8.5-10.1 Serum or plasma total bilirubin measurement (mass/volume) 0.5 mg/dL 0.1-1.0 Serum or plasma alkaline phosphatase measurement (enzymatic activity/volume) 44 U/L 40-136 Serum or plasma aspartate aminotransferase measurement (enzymatic activity/ volume) 16 U/L 5-34 Serum or plasma alanine aminotransferase measurement (enzymatic activity/volume ) 13 U/L 0-55 Serum or plasma protein measurement (mass/volume) 5.9 g/dL 6.4-8.2 Serum or plasma albumin measurement (mass/volume) 3.2 g/dL 3.2-4.5 Complete blood count (CBC) with automated white blood cell (WBC) differential - 06/06/17 05:25 Blood leukocytes automated count (number/volume) 8.6 10*3/uL 4.3-11.0 Blood erythrocytes automated count (number/volume) 3.19 10*6/uL 4.35-5.85 Venous blood hemoglobin measurement (mass/volume) 9.9 g/dL 13.3-17.7 Blood hematocrit (volume fraction) 31 % 40-54 Automated erythrocyte mean corpuscular volume 96 [foz_us] 80-99 Automated erythrocyte mean corpuscular hemoglobin (mass per erythrocyte) 31 pg 25-34 Automated erythrocyte mean corpuscular hemoglobin concentration measurement ( mass/volume) 33 g/dL 32-36 Automated erythrocyte distribution width ratio 14.9 % 10.0-14.5 Automated blood platelet count (count/volume) 187 10*3/uL 130-400 Automated blood platelet mean volume measurement 10.9 [foz_us] 7.4-10.4 Automated blood neutrophils/100 leukocytes 63 % 42-75 Automated blood lymphocytes/100 leukocytes 14 % 12-44 Blood monocytes/100 leukocytes 23 % 0-12 Automated blood eosinophils/100 leukocytes 1 % 0-10 Automated blood basophils/100 leukocytes 0 % 0-10 Blood neutrophils automated count (number/volume) 5.4 10*3 1.8-7.8 Blood lymphocytes automated count (number/volume) 1.2 10*3 1.0-4.0 Blood monocytes automated count (number/volume) 1.9 10*3 0.0-1.0 Automated eosinophil count 0.1 10*3/uL 0.0-0.3 Automated blood basophil count (count/volume) 0.0 10*3/uL 0.0-0.1 Comprehensive metabolic panel - 06/06/17 05:25 Serum or plasma sodium measurement (moles/volume) 138 mmol/L 135-145 Serum or plasma potassium measurement (moles/volume) 4.2 mmol/L 3.6-5.0 Serum or plasma chloride measurement (moles/volume) 108 mmol/L 98-107 Carbon dioxide 21 mmol/L 21-32 Serum or plasma anion gap determination (moles/volume) 9 mmol/L 5-14 Serum or plasma urea nitrogen measurement (mass/volume) 24 mg/dL 7-18 Serum or plasma creatinine measurement (mass/volume) 1.26 mg/dL 0.60-1.30 Serum or plasma urea nitrogen/creatinine mass ratio 19 NRG Serum or plasma creatinine measurement with calculation of estimated glomerular filtration rate 54 NRG Serum or plasma glucose measurement (mass/volume) 114 mg/dL 70-105 Serum or plasma calcium measurement (mass/volume) 8.8 mg/dL 8.5-10.1 Serum or plasma total bilirubin measurement (mass/volume) 0.4 mg/dL 0.1-1.0 Serum or plasma alkaline phosphatase measurement (enzymatic activity/volume) 53 U/L 40-136 Serum or plasma aspartate aminotransferase measurement (enzymatic activity/ volume) 14 U/L 5-34 Serum or plasma alanine aminotransferase measurement (enzymatic activity/volume ) 12 U/L 0-55 Serum or plasma protein measurement (mass/volume) 6.1 g/dL 6.4-8.2 Serum or plasma albumin measurement (mass/volume) 3.2 g/dL 3.2-4.5 Complete blood count (CBC) with automated white blood cell (WBC) differential - 06/07/17 06:36 Blood leukocytes automated count (number/volume) 5.3 10*3/uL 4.3-11.0 Blood erythrocytes automated count (number/volume) 3.24 10*6/uL 4.35-5.85 Venous blood hemoglobin measurement (mass/volume) 10.1 g/dL 13.3-17.7 Blood hematocrit (volume fraction) 31 % 40-54 Automated erythrocyte mean corpuscular volume 95 [foz_us] 80-99 Automated erythrocyte mean corpuscular hemoglobin (mass per erythrocyte) 31 pg 25-34 Automated erythrocyte mean corpuscular hemoglobin concentration measurement ( mass/volume) 33 g/dL 32-36 Automated erythrocyte distribution width ratio 14.8 % 10.0-14.5 Automated blood platelet count (count/volume) 199 10*3/uL 130-400 Automated blood platelet mean volume measurement 10.8 [[id number]] 7.4-10.4 Automated blood neutrophils/100 leukocytes 52 % 42-75 Automated blood lymphocytes/100 leukocytes 17 % 12-44 Blood monocytes/100 leukocytes 31 % 0-12 Automated blood eosinophils/100 leukocytes 1 % 0-10 Automated blood basophils/100 leukocytes 0 % 0-10 Blood neutrophils automated count (number/volume) 2.7 10*3 1.8-7.8 Blood lymphocytes automated count (number/volume) 0.9 10*3 1.0-4.0 Blood monocytes automated count (number/volume) 1.6 10*3 0.0-1.0 Automated eosinophil count 0.1 10*3/uL 0.0-0.3 Automated blood basophil count (count/volume) 0.0 10*3/uL 0.0-0.1 Comprehensive metabolic panel - 06/07/17 06:36 Serum or plasma sodium measurement (moles/volume) 137 mmol/L 135-145 Serum or plasma potassium measurement (moles/volume) 4.1 mmol/L 3.6-5.0 Serum or plasma chloride measurement (moles/volume) 106 mmol/L 98-107 Carbon dioxide 21 mmol/L 21-32 Serum or plasma anion gap determination (moles/volume) 10 mmol/L 5-14 Serum or plasma urea nitrogen measurement (mass/volume) 26 mg/dL 7-18 Serum or plasma creatinine measurement (mass/volume) 1.28 mg/dL 0.60-1.30 Serum or plasma urea nitrogen/creatinine mass ratio 20 NRG Serum or plasma creatinine measurement with calculation of estimated glomerular filtration rate 53 NRG Serum or plasma glucose measurement (mass/volume) 107 mg/dL 70-105 Serum or plasma calcium measurement (mass/volume) 9.3 mg/dL 8.5-10.1 Serum or plasma total bilirubin measurement (mass/volume) 0.3 mg/dL 0.1-1.0 Serum or plasma alkaline phosphatase measurement (enzymatic activity/volume) 52 U/L 40-136 Serum or plasma aspartate aminotransferase measurement (enzymatic activity/ volume) 15 U/L 5-34 Serum or plasma alanine aminotransferase measurement (enzymatic activity/volume ) 12 U/L 0-55 Serum or plasma protein measurement (mass/volume) 6.1 g/dL 6.4-8.2 Serum or plasma albumin measurement (mass/volume) 3.2 g/dL 3.2-4.5 Encounters ACCT No. Visit Date/Time Discharge Status Pt. Type Provider Facility Loc./Unit Complaint [id number] 06/04/2017 14:20:00 06/07/2017 15:08:00 DIS Inpatient CAROL JERRY DO [facility] 4TH SEPSIS,UTI [id number] 05/25/2017 15:00:00 05/31/2017 10:20:00 DIS Inpatient NOHEMI REGALADO MD [facility] 4TH UTI CATH ASSOCIATED, SEPSIS, RT URETERAL STONE [id number] 05/16/2017 09:23:00 05/16/2017 11:12:00 DIS Emergency CINDY SAMPSON, YAMILET Cerna [facility] ER DRAIN TUBE CAME LOOSE [id number] 05/11/2017 08:00:00 05/11/2017 23:59:59 CLS Preadmit BRONWYN MAZARIEGOS MD [facility] SDC RIGHT URETERAL STONE [id number] 05/10/2017 14:09:00 05/10/2017 23:59:59 CLS Outpatient BRONWYN MAZARIEGOS MD [facility] LAB UTI [id number] 05/09/2017 07:28:00 05/09/2017 23:59:59 CLS Outpatient BRONWYN MAZARIEGOS MD [facility] RAD RENAL STONE [id number] 05/09/2017 10:30:00 05/09/2017 10:30:00 CAN Preadmit BRONWYN MAZARIEGOS MD [facility] PREOP RIGHT ESWL [id number] 04/19/2017 09:23:00 04/19/2017 14:18:00 DIS Outpatient BRONWYN MAZARIEGOS MD [facility] SDC RIGHT KIDNEY STONE [id number] 04/18/2017 13:10:00 04/18/2017 23:59:59 CLS Outpatient BRONWYN MAZARIEGOS MD [facility] RAD 69748 [id number] 04/18/2017 05:42:00 04/18/2017 23:59:59 CLS Outpatient BRONWYN MAZARIEGOS MD [facility] PREOP RIGHT ESWL [id number] 04/01/2017 12:45:00 04/07/2017 15:09:00 DIS Outpatient ALLYSON KAM MD [facility] IRF DEBILITY [id number] 04/06/2017 14:13:00 04/06/2017 23:59:59 CLS Preadmit [facility] [id number] 03/30/2017 00:58:00 04/01/2017 13:25:00 DIS Inpatient NERI SAMPSON, DRE Jane [facility] 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,UTI,STAGE 1 DECUBITUS ULCER, [id number] 03/29/2017 14:13:00 03/29/2017 23:59:59 CLS Outpatient JESÚS ALFARO APRN [facility] RAD CALCULUS OF KIDNEY [id number] 03/29/2017 11:00:00 03/29/2017 23:59:59 CLS Outpatient JESÚS ALFARO M[employer] TENDER [facility] RAD M54.5 [id number] 02/14/2017 08:27:00 02/14/2017 23:59:59 CLS Outpatient STEF DICKENS [facility] CARD AF [id number] 12/09/2016 12:44:00 12/09/2016 23:59:59 CLS Outpatient KARL DOE TANYA Salma [facility] RAD M54.16 [id number] 11/24/2016 10:02:00 11/24/2016 23:59:59 CLS Outpatient PHILLIP HERNADEZ MD [facility] RAD M48.04 [id number] 09/15/2016 14:51:00 09/15/2016 23:59:59 CLS Outpatient STEF DICKENS [facility] CARD AF I48.0 [id number] 03/17/2016 08:31:00 03/17/2016 23:59:59 CLS Outpatient DYLON HERNANDEZ MD [facility] CATH PAF,PALPITATION,PVC'S [id number] 09/26/2015 10:36:00 10/09/2015 11:55:00 DIS Outpatient SAUNDRA LUIS [facility] REHAB S/P L REVERSE TSR; ULNAR NERVE TRANSPOSITION [id number] 10/06/2015 08:30:00 10/06/2015 23:59:59 CLS Preadmit DYLON HERNANDEZ MD [facility] CARD LAFB,CAD,AFIB [id number] 07/07/2015 08:12:00 10/05/2015 00:01:00 DIS Outpatient DYLON HERNANDEZ MD [facility] CARD LAFCristal,CAD,AFIB [id number] 07/03/2015 15:05:00 07/03/2015 23:59:59 CLS Outpatient DYLON HERNANDEZ MD [facility] CARD AF,YAW,LASB [id number] 05/19/2015 10:00:00 05/19/2015 15:13:00 DIS Outpatient ALBERTINA AGUILAR MD [facility] REHAB S/P L REVERSE TOTAL SHOULDER REPLACEMENT [id number] 04/19/2015 16:34:00 04/19/2015 18:29:00 DIS Emergency MERLINE ERICKSON MD [facility] ER AFIB [id number] 01/30/2015 01:06:00 01/30/2015 23:59:59 CLS Preadmit DARBY ROCHE MD [facility] REHAB [id number] 01/24/2015 13:01:00 01/29/2015 00:01:00 DIS Outpatient DARBY ROCHE MD [facility] REHAB LT REVERSE TOTAL SHOULDER; LT ULNAR NEURITIS [id number] 02/28/2014 11:40:00 02/28/2014 23:59:59 CLS Outpatient TEETEE CALDERA MD [facility] CARD ATYPICAL CP [id number] 01/16/2014 07:20:00 01/16/2014 23:59:59 CLS Outpatient JOAN SPIVEY MD [facility] PREOP GERD [id number] 11/05/2013 14:16:00 11/05/2013 15:29:00 DIS Out[facility];SPONDYLOSIS [id number] 07/05/2013 13:05:00 07/11/2013 08:47:00 DIS Outpatient [facility]-3 X STOP HEMILAMINECTOMY [id number] 06/28/2013 06:26:00 06/28/2013 09:25:00 DIS Outpatient JOAN SPIVEY MD [facility] SDC GERD [id number] 06/27/2013 07:12:00 06/27/2013 23:59:59 CLS Outpatient JOAN SPIVEY MD [facility] PREOP GERD [id number] 03/26/2013 08:43:00 03/26/2013 23:59:59 CLS Outpatient JOAN SPIVEY MD [facility] RAD HIATAL HERNIA, DYSPHAGIA [id number] 03/23/2013 06:29:00 03/23/2013 09:50:00 DIS Outpatient JOAN SPIVEY MD [facility] SDC GERD [id number] 03/21/2013 07:27:00 03/21/2013 23:59:59 CLS Outpatient JOAN SPIVEY MD [facility] PREOP GERD [id number] 06/07/2017 15:28:00 ACT Inpatient FABRICIO SAMPSON, NOHEMI Hinds [facility] 4TH SWB BACTEREMIA [id number] 07/03/2015 15:04:00 Document Registration [id number] 07/03/2015 15:04:00 Document Registration [id number] 07/03/2015 15:03:00 Document Registration [id number] 08/01/2012 07:50:00 Document Registration [id number] 07/12/2012 08:05:00 Document Registration [id number] 04/19/2012 10:36:00 Document Registration [id number] 08/21/2010 16:41:00 Document Registration [id number] 05/30/2010 09:40:00 Document Registration [id number] 05/28/2010 07:39:00 Document Registration [id number] 05/21/2010 06:34:00 Document Registration [id number] 04/07/2010 22:20:00 Document Registration [id number] 01/23/2010 08:44:00 Document Registration
[2017-06-08] MEDS: metroNIDAZOLE 500 MG (FLAGYL) TAB PO SCH ×3 (09:46→20:40)
[2017-06-08] MEDS: MAGNESIUM OXIDE (MAG-OX)400 MG TAB PO SCH (11:06)
--- NOTE | 2017-06-08 14:18 | Occupational Therapy Eval ---
OT Evaluation-General/PLF Medical Diagnosis Admission Date Jun 07, 2017 at 15:28 Medical Diagnosis: sepsis, UTI Onset Date: Jun 04, 2017 Therapy Diagnosis Therapy Diagnosis: decr activity tolerance, weakness Height/Weight Height (Feet): 5 Height (Inches): 8.00 Weight (Pounds): 176 Weight (Ounces): 5.0 Precautions Precautions/Isolations: Contact Isolation (ESBL) Safety Interventions: None Referral Physician: Cristine Referral Reason: Evaluation/Treatment Medical History Pertinent Medical History: Atrial Fib, Arthritis, GERD, HTN, Neuropathy, Renal Insufficiency Additional Medical History BPH, esophagitis, hiatal hernia, ulcer, chronic back pain, chronic anemia. Spine surgery January 2017 Current History Recent lithotripsy and ureteral stent. nephrostomy taken out. Now has infection Reviewed History: Yes ADL-Prior Level of Function ADL PLOF Comments Pt reported that he has been able to manage all of his basic self care needs prior to admission. 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 Reports no pain at this time Appearance Alert, cooperative Mental Status/Objective Patient Orientation: Person, Place, Time, Situation Attachments: Central Line Current Glasses/Contacts: Yes Hearing Aids: No Dentures/Partials: No Hand Dominance: Left Upper Extremity ROM Grossly WFL bilat Upper Extremity Strength Grossly 4+/5 bilat ADL-Treatment ADL-Current Pt was recently on inpatient rehab and was discharged at independent to [facility] independent with all ADLs except emptying nephrostomy bag. He reported that he has been feeding himself without difficulty, shaving, brushing his teeth and taking himself to the bathroom, without using assistive device for walking. Pt walked to the bathroom without help, got on and off toilet, managed hygiene and clothing mod I. He requested UE strengthening program and was provided with red theraband for UE exercise (medium resistance) to increase activity tolerance and UE strength. Pt recalled many exercises but OT will follow up for home/room exercise program. Pt left up in recliner, all needs met. Functional [place] Measure 0=Not Assessed/NA 4=Minimal Assistance 1=Total Assistance 5=Supervision or Setup 2=Maximal Assistance 6=Modified [place] 3=Moderate Assistance 7=Complete IndependenceIRFPAI Quality Coding Scale 6 Independent with activity with or without an assistive device 5 Patient requires set up or clean up by helper. Patient completes activity by themselves 4 Supervision or touching assist (CGA). [place] provide cues , steadying assist 3 The helper provides less than half the effort to complete the activity 2 The helper provides more than half the effort to complete the activity 1 Dependent. The helper does all the effort to complete an activity 7 Patient refused to complete or attempt activity 9 The patient did not perform the activity before the current illness or injury 88 Not attempted due to Medical conditions or safety concerns Eating (FIM): 7 Eating (QC): 6 Grooming (FIM): 7 Oral Hygiene (QC): 6 Toileting (FIM): 6 Toileting Hygiene (QC): 6 Toilet/Commode Transfer (FIM): 6 Toilet Transfer (QC): 6 Education OT Patient Education: Home exercise program, Purpose of tx/functional activities, Rehab process Teaching Recipient: Patient Teaching Methods: Discussion Response to Teaching: Verbalize Understanding OT Short Term Goals Short Term Goals 1=Demonstrate adherence to instructed precautions during ADL tasks. 2=Patient will verbalize/demonstrate understanding of assistive devices/ modifications for ADL. 3=Patient will improve strength/tolerance for activity to enable patient to perform ADL's. OT Cut Pressman Goals Assisted Goals Time Frame: Jun 15, 2017 Pt will be modified independent with home/room exercise program Additional Goals: 3-ImproveStrength/[place] 1=Demonstrate adherence to instructed precautions during ADL tasks. 2=Patient will verbalize/demonstrate understanding of assistive devices/ modifications for ADL. 3=Patient will improve strength/tolerance for activity to enable patient to perform ADL's. OT Education/Plan Problem List/Assessment Assessment: Decreased Activ Tolerance, Decreased UE Strength Pt would benefit from skilled OT to increase his activity tolerance and UE strength, to allow him to safely return home Discharge Recommendations Plan/Recommendations: Continue POC Treatment Plan/Plan of Care Patient would benefit from OT for education, treatment and training to promote independence in ADL's, mobility, safety and/or upper extremity function for ADL' s. Plan of Care: UE Funct Exercise/Act Treatment Duration: Jun 15, 2017 Frequency: 5 times per week Estimated Hrs Per Day: .25 hour per day Agreement: Yes Rehab Potential: Good Time/GCodes Start Time: 13:35 Stop Time: 14:00 Total Time Billed (hr/min): 25 Billed Treatment Time visit, 10 minutes evaluation low intensity, 10 minutes ADL, 5 minutes exercise AYE SORENSON OT Jun 08, 2017 14:18
--- NOTE | 2017-06-08 14:35 | Physical Therapy Evaluation ---
PT Evaluation-General Medical Diagnosis Admission Date Jun 07, 2017 at 15:28 Medical Diagnosis: sepsis, UTI Onset Date: Jun 04, 2017 Therapy Diagnosis Therapy Diagnosis: weakness; gait instability Height/Weight Height (Feet): 5 Height (Inches): 8.00 Weight (Pounds): 176 Weight (Ounces): 5.0 Precautions Precautions/Isolations: Contact Isolation (ESBL) Weight Bear Status Right Lower Extremity: Right Weight Bearing/Tolerated Left Lower Extremity: Left Weight Bearing/Tolerated Referral Physician: Cristine Reason for Referral: Evaluation/Treatment, Gait Medical History Pertinent Medical History: Atrial Fib, Arthritis, GERD, HTN, Neuropathy, Renal Insufficiency Current History 6-8 week history of kidney stones with infection. Recent onset of UTI and sepsis following lithotripsy procedure last week. Reviewed History: Yes Social History Home: Single Level Current Living Status: Spouse Entry Into Home: Stairs With Railing PT Steps Into Home: 2 Prior/Core FIM Prior Level of Function Functional [place] Measure 0=Not Assessed/NA 4=Minimal Assistance 1=Total Assistance 5=Supervision or Setup 2=Maximal Assistance 6=Modified [place] 3=Moderate Assistance 7=Complete [place] Bed Mobility: 7 Transfers (B,C,W/C) (FIM): 7 Gait: 7 PT Evaluation-Current Subjective Pt reports he has intermittent back pain following the removal of a stent in his ureter. Pain ranges from 0-5/10 depending on movement. He feels more confident walking with the walker at this time because when the pain hits him it feels like his knees will buckle. Pt/Family Goals return to home Objective Patient Orientation: Normal For Age Problem Solving: Good Attachments: IV ROM/Strength ROM Lower Extremities WFL Strenght Lower Extremities 4+/5 Sensory Vision: Wears Glasses Hearing: Functional Hand Dominance: Left Sensation Right Upper Extremit: Intact Sensation Left Upper Extremity: Intact Sensation Right Lower Extremit: Intact Sensation Left Lower Extremity: Intact Transfers Functional [place] Measure 0=Not Assessed/NA 4=Minimal Assistance 1=Total Assistance 5=Supervision or Setup 2=Maximal Assistance 6=Modified [place] 3=Moderate Assistance 7=Complete [place] Transfers (B, C, W/C) (FIM): 6 Rollin Supine to/from Sit: 6 Sit to/from Stand: 6 bed t/f WC(FIM only if WC use): 6 Sit to Lying (QC): 6 Lying to Sitting/Side of Bed(Q: 6 Sit to Stand (QC): 6 Chair/Rkk-jg-Fquxn Xfer(QC): 6 stable transfers and bed mobility. Able transfer to bedside chair safely without assistive device. Gait Does the Patient Walk?: Yes Mode of Locomotion: Walk Anticipated Mode of Locomotion: Walk Gait (FIM): 5 Distance (FIM): 3=150 ft Distance: 1500 Walk 50 ft with 2 Turns(QC): 5 Gait Level of Assist: 5 Gait Persons Needed: 1 Gait Assistive Device: FWW Comments/Gait Description Ambulated using FWW with SBA for safety. Pt's stride became shortened and shuffled after approximately 1000ft. Needed cues to lift his feet so gripper socks did not cause him to trip. 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 Instructed that tripping hazards increase with fatigue. Assessment/Needs Patient is a supervision level for long distance ambulation secondary to fatigue and increased risk of tripping. He demonstrated sufficient mobility to be modified independent in his room. Pt safe for ambulation with nursing and family. 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 [facility] Goals PT Senior Business Analyst Goals Time Frame: Jun 15, 2017 Transfers (B,C,W/C) (FIM): 7 Sit to Lying (QC): 6 Lying-Sitting on Side/Bed(QC): 6 Sit to Stand (QC): 6 Does the Patient Walk: Yes Distance: 2000 Walk 50ft with 2 Turns (QC): 6 Walk 150 ft (QC): 6 Gait Level of Assist: 6 Gait Assistive Device: FWW PT Plan Problem List Problem List: Activity Tolerance, Gait Treatment/Plan Treatment Plan: Continue Plan of Care Treatment Plan: Gait Treatment Duration: Jun 15, 2017 Frequency: 6 times per week Estimated Hrs Per Day: .25 hour per day Patient and/or Family Agrees t: Yes Safety Risks/Education Patient Education: Gait Training Teaching Recipient: Patient Teaching Methods: Demonstration Response to Teaching: Verbalize Understanding, Return Demonstration Discharge Recommendations Barriers to Progress none Time/GCodes Time In: 1400 Time Out: 1430 Total Billed Treatment Time: 30 Total Billed Treatment visit, eval low complexity 15 min, gait 15 min JULIANO BOB PT Jun 08, 2017 14:35
[2017-06-08 16:33] VITALS: BP 105/56
[2017-06-08 17:00] VITALS: BP 105/56
[2017-06-08] MEDS: HYDROcodone/APAP 5 MG/325 MG (LORTAB) TAB PO PRN (21:33)
[2017-06-09] MEDS: HYDROcodone/APAP 5 MG/325 MG (LORTAB) TAB PO PRN (04:38)
[2017-06-09] MEDS: MEROPENEM IV SCH ×3 (05:08→21:00)
[2017-06-09] MEDS: LACTOBACILLUS Acidoph/Bulgar (LACTINEX/FLORANEX) TAB PO SCH ×3 (05:08→16:48)
[2017-06-09] MEDS: D5W IV SCH ×3 (05:08→21:00)
[2017-06-09 05:39] VITALS: BP 124/58
[2017-06-09] MEDS: metroNIDAZOLE 500 MG (FLAGYL) TAB PO SCH ×3 (08:47→20:54)
--- NOTE | 2017-06-09 09:09 | Physical Therapy Daily Note ---
PT Daily Note-Current Subjective Pt reports he has been up ad monik in his room. He asked if he can walk the halls independently. Therapist advised him that he cannot do that at this time due to his current antibiotic resistant infection. Explained reverse isolation. Mental Status Patient Orientation: Normal For Age Transfers Functional [place] Measure 0=Not Assessed/NA 4=Minimal Assistance 1=Total Assistance 5=Supervision or Setup 2=Maximal Assistance 6=Modified [place] 3=Moderate Assistance 7=Complete IndependenceIRFPAI Quality Coding Scale 6 Independent with activity with or without an assistive device 5 Patient requires set up or clean up by helper. Patient completes activity by themselves 4 Supervision or touching assist (CGA). [place] provide cues , steadying assist 3 The helper provides less than half the effort to complete the activity 2 The helper provides more than half the effort to complete the activity 1 Dependent. The helper does all the effort to complete an activity 7 Patient refused to complete or attempt activity 9 The patient did not perform the activity before the current illness or injury 88 Not attempted due to Medical conditions or safety concerns Weight Bearing Right Lower Extremity: Right Weight Bearing/Tolerated Left Lower Extremity: Left Weight Bearing/Tolerated Gait Training Gait (FIM): 5 Distance (FIM): 3=150 ft Distance: 1500 Gait Level of Assist: 5 Gait Persons Needed: 1 Gait Assistive Device: FWW Pt stable during gait. After fatigue he has increased shuffling of the feet with decreased stride length. Stair Training Stair Training: Handrails/: 2 handrails Stairs (FIM): 5 #of Steps: 24 Stairs: Pattern: Reciprocal Level of Assist: 5 Ambulated up and down 1 flight of stairs in the stairwell using (B) rails and reciprocating gait. Assessment Current Status: Good Progress Added stairs to his training regimen. Pt demonstrates good mobility and safety technique. 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 Long-Term Goals PT Long-Term Goals Time Frame: Jun 15, 2017 Transfers (B,C,W/C) (FIM): 7 Sit to Lying (QC): 6 Lying-Sitting on Side/Bed(QC): 6 Sit to Stand (QC): 6 Rollin Does the Patient Walk: Yes Distance: 2000 Walk 50ft with 2 Turns (QC): 6 Walk 150 ft (QC): 6 Gait Level of Assist: 6 Gait Assistive Device: FWW PT Plan Problem List Problem List: Activity Tolerance, Gait Treatment/Plan Treatment Plan: Continue Plan of Care Treatment Plan: Gait Treatment Duration: Jun 15, 2017 Frequency: 6 times per week Estimated Hrs Per Day: .25 hour per day Patient and/or Family Agrees t: Yes Time/GCodes Time In: 844 Time Out: 904 Total Billed Treatment Time: 20 Total Billed Treatment visit, licha 20 min JULIANO BOB PT Jun 09, 2017 09:09
[2017-06-09] MEDS: MAGNESIUM OXIDE (MAG-OX)400 MG TAB PO SCH (11:17)
--- NOTE | 2017-06-09 12:03 | Progress Note-Urology ---
Progress Note-Urology Progress Notes/Assess & Plan Progress/Assessment & Plan CONTINUES IMPROVING SLOWLY BUT SURELY, BACK/FLANK PAIN BETTER Final Diagnosis UROSEPSIS AND PROSTATITIS BRONWYN MAZARIEGOS MD Jun 09, 2017 12:03
--- NOTE | 2017-06-09 15:14 | Occupational Ther Daily Note ---
OT Current Status-Daily Note Subjective Pt alert, standing in bathroom. Pt agreed to therapy. No c/o pain. Mental Status/Objective Patient Orientation: Person, Place, Time, Situation Functional [place] Measure 0=Not Assessed/NA 4=Minimal Assistance 1=Total Assistance 5=Supervision or Setup 2=Maximal Assistance 6=Modified [place] 3=Moderate Assistance 7=Complete [place] Attachments: IV ADL-Treatment Functional [place] Measure 0=Not Assessed/NA 4=Minimal Assistance 1=Total Assistance 5=Supervision or Setup 2=Maximal Assistance 6=Modified [place] 3=Moderate Assistance 7=Complete IndependenceIRFPAI Quality Coding Scale 6 Independent with activity with or without an assistive device 5 Patient requires set up or clean up by helper. Patient completes activity by themselves 4 Supervision or touching assist (CGA). [place] provide cues , steadying assist 3 The helper provides less than half the effort to complete the activity 2 The helper provides more than half the effort to complete the activity 1 Dependent. The helper does all the effort to complete an activity 7 Patient refused to complete or attempt activity 9 The patient did not perform the activity before the current illness or injury 88 Not attempted due to Medical conditions or safety concerns Toileting (FIM): 6 (Pt manipulated clothing and cleansed self.) Toileting Hygiene (QC): 6 Toilet/Commode Transfer (FIM): 6 (Using grabbar is able to transfer self.) Other Treatment Pt able to demonstrate knowledge and good form with theraband exercise. Completed 3 sets 10 reps. After therapy, pt sitting on EOB with call light/ phone All needs met in room. OT Short Term Goals Short Term Goals 1=Demonstrate adherence to instructed precautions during ADL tasks. 2=Patient will verbalize/demonstrate understanding of assistive devices/ modifications for ADL. 3=Patient will improve strength/tolerance for activity to enable patient to perform ADL's. OT Senior Care Goals Double Head Machine Operator Goals Time Frame: Jun 15, 2017 Pt will be modified independent with home/room exercise program Additional Goals: 3-ImproveStrength/[place] 1=Demonstrate adherence to instructed precautions during ADL tasks. 2=Patient will verbalize/demonstrate understanding of assistive devices/ modifications for ADL. 3=Patient will improve strength/tolerance for activity to enable patient to perform ADL's. OT Education/Plan Problem List/Assessment Pt would benefit from skilled OT to increase his activity tolerance and UE strength, to allow him to safely return home Discharge Recommendations Plan/Recommendations: Continue POC Treatment Plan/Plan of Care Patient would benefit from OT for education, treatment and training to promote independence in ADL's, mobility, safety and/or upper extremity function for ADL' s. Plan of Care: UE Funct Exercise/Act Treatment Duration: Jun 15, 2017 Frequency: 5 times per week Estimated Hrs Per Day: .25 hour per day Agreement: Yes Rehab Potential: Good Time/GCodes Start Time: 14:45 Stop Time: 15:00 Total Time Billed (hr/min): 15 Billed Treatment Time 1 visit-EX1 (15 min) DIONY EDWARDS Jun 09, 2017 15:14
[2017-06-09 18:48] VITALS: BP 112/62
[2017-06-10] MEDS: HYDROcodone/APAP 5 MG/325 MG (LORTAB) TAB PO PRN ×2 (02:49→21:44)
[2017-06-10] MEDS: MEROPENEM IV SCH ×3 (05:14→21:44)
[2017-06-10] MEDS: LACTOBACILLUS Acidoph/Bulgar (LACTINEX/FLORANEX) TAB PO SCH ×3 (05:14→16:08)
[2017-06-10] MEDS: D5W IV SCH ×3 (05:14→21:44)
[2017-06-10 06:00] VITALS: BP 98/72
--- NOTE | 2017-06-10 07:55 | Progress Note-Hospitalist ---
Subjective HPI/CC On Admission Date Seen by Provider: Jun 10, 2017 Time Seen by Provider: 07:30 Subjective/Events-last exam Pt reports feeling well. Has been up ambulating and did some stairs yesterday. Had some back pain overnight but otherwise doing well. Objective Exam Vital Signs Vital Signs Date Time Temp Pulse Resp B/P (MAP) Pulse Ox O2 Delivery O2 Flow Rate FiO2 06/07/17 18:48 99.4 79 20 110/61 (77) 98 Room Air Capillary Refill : General Appearance: No Apparent Distress, WD/WN Respiratory: Lungs Clear, No Respiratory Distress Cardiovascular: Regular Rate, Rhythm, No Murmur Extremity: Non Tender, No Calf Tenderness Neurologic/Psychiatric: Alert, Oriented x3 Assessment/Plan Assessment and Plan Assess & Plan/Chief Complaint e coli bacteremia Diagnosis/Problems Diagnosis/Problems (1) Bacteremia Status: Acute Assessment & Plan: ESBL e coli Continue on merrem Will need to continue IV abx through the weekend (2) Essential (primary) hypertension Status: Chronic Assessment & Plan: Somewhat low this AM Only receives metoprolol at night Will hold (3) C. difficile colitis Assessment & Plan: Continue on NOHEMI Landin MD Jun 10, 2017 7:55 am
[2017-06-10] MEDS: metroNIDAZOLE 500 MG (FLAGYL) TAB PO SCH ×3 (09:15→21:44)
--- NOTE | 2017-06-10 10:16 | Physical Therapy Daily Note ---
PT Daily Note-Current Subjective Patient agrees to PT. No c/o at this time. Pain Numeric Pain Scale: 0-No Pain Location: No Pain Reported Mental Status Patient Orientation: Normal For Age Transfers Functional [place] Measure 0=Not Assessed/NA 4=Minimal Assistance 1=Total Assistance 5=Supervision or Setup 2=Maximal Assistance 6=Modified [place] 3=Moderate Assistance 7=Complete IndependenceIRFPAI Quality Coding Scale 6 Independent with activity with or without an assistive device 5 Patient requires set up or clean up by helper. Patient completes activity by themselves 4 Supervision or touching assist (CGA). [place] provide cues , steadying assist 3 The helper provides less than half the effort to complete the activity 2 The helper provides more than half the effort to complete the activity 1 Dependent. The helper does all the effort to complete an activity 7 Patient refused to complete or attempt activity 9 The patient did not perform the activity before the current illness or injury 88 Not attempted due to Medical conditions or safety concerns Transfers (B, C, W/C) (FIM): 6 Scootin Roll Left to Right (QC): 6 Supine to/from Sit: 6 Sit to/from Stand: 6 Sit to Lying (QC): 6 Sit to Stand (QC): 6 Chair/Cqv-ym-Urlvk Xfer(QC): 6 Weight Bearing Right Lower Extremity: Right Weight Bearing/Tolerated Left Lower Extremity: Left Weight Bearing/Tolerated Gait Training Does the Patient Walk?: Yes Gait (FIM): 6 Distance (FIM): 3=150 ft Distance: >900' Walk 50 ft with 2 Turns(QC): 6 Walk 150 ft (QC): 6 Gait Level of Assist: 6 Gait Assistive Device: FWW trunk flexed posture, safe and function gait sequence Assessment PT instructed patient to ambulate PRN in hallway by himself due to patient at modified independent [facility] with gross motor skills. RN notified. PT Tactical Deception Plans Officer Goals Alf Goals PT Tactical Deception Plans Officer Goals Time Frame: Jun 15, 2017 Transfers (B,C,W/C) (FIM): 7 Sit to Lying (QC): 6 Lying-Sitting on Side/Bed(QC): 6 Sit to Stand (QC): 6 Rollin Does the Patient Walk: Yes Distance: 2000 Walk 50ft with 2 Turns (QC): 6 Walk 150 ft (QC): 6 Gait Level of Assist: 6 Gait Assistive Device: FWW PT Plan Treatment/Plan Treatment Plan: Continue Plan of Care Treatment Plan: Gait Treatment Duration: Jun 15, 2017 Frequency: 6 times per week Estimated Hrs Per Day: .25 hour per day Patient and/or Family Agrees t: Yes Time/GCodes Time In: 930 Time Out: 945 Total Billed Treatment Time: 15 Total Billed Treatment 1 visit FA 15 min ISABELLA COE PT Jun 10, 2017 10:16
--- NOTE | 2017-06-10 13:26 | Progress Note-Urology ---
Progress Note-Urology Progress Notes/Assess & Plan Progress/Assessment & Plan CONTINUES WELL Final Diagnosis UROSEPSIS BRONWYN MAZAREIGOS MD Jun 10, 2017 13:26
[2017-06-10] MEDS: MAGNESIUM OXIDE (MAG-OX)400 MG TAB PO SCH (13:27)
--- NOTE | 2017-06-10 14:47 | Occupational Ther Daily Note ---
OT Current Status-Daily Note Subjective Pt seen in room, up in recliner, agreeable to OT. No pain mentioned Appearance Alert, cooperative Mental Status/Objective Functional [place] Measure 0=Not Assessed/NA 4=Minimal Assistance 1=Total Assistance 5=Supervision or Setup 2=Maximal Assistance 6=Modified [place] 3=Moderate Assistance 7=Complete [place] ADL-Treatment Per patient report, he continues to feed himself, manages grooming and has been toileting himself in room. Functional [place] Measure 0=Not Assessed/NA 4=Minimal Assistance 1=Total Assistance 5=Supervision or Setup 2=Maximal Assistance 6=Modified [place] 3=Moderate Assistance 7=Complete IndependenceIRFPAI Quality Coding Scale 6 Independent with activity with or without an assistive device 5 Patient requires set up or clean up by helper. Patient completes activity by themselves 4 Supervision or touching assist (CGA). [place] provide cues , steadying assist 3 The helper provides less than half the effort to complete the activity 2 The helper provides more than half the effort to complete the activity 1 Dependent. The helper does all the effort to complete an activity 7 Patient refused to complete or attempt activity 9 The patient did not perform the activity before the current illness or injury 88 Not attempted due to Medical conditions or safety concerns Other Treatment Pt demonstrated several different bilat UE exercises using red theraband, 15 reps each. Pt educ on increasing repetitions to 15 and then switching to adding additional sets of exercise, after recovery breaks. pt was able to do the exercises with correct form and reported he has been doing them on his own in his room. Pt left up in recliner, all needs met. DC OT with goal met. Education OT Patient Education: Home exercise program Teaching Recipient: Patient Response to Teaching: Return Demonstration OT Short Term Goals Short Term Goals 1=Demonstrate adherence to instructed precautions during ADL tasks. 2=Patient will verbalize/demonstrate understanding of assistive devices/ modifications for ADL. 3=Patient will improve strength/tolerance for activity to enable patient to perform ADL's. OT Fire Prevention Research Engineer Goals Fire Prevention Research Engineer Goals Time Frame: Jun 15, 2017 Pt will be modified independent with home/room exercise program - goal met Additional Goals: 3-ImproveStrength/Rudolph 1=Demonstrate adherence to instructed precautions during ADL tasks. 2=Patient will verbalize/demonstrate understanding of assistive devices/ modifications for ADL. 3=Patient will improve strength/tolerance for activity to enable patient to perform ADL's. OT Education/Plan Problem List/Assessment Pt would benefit from skilled OT to increase his activity tolerance and UE strength, to allow him to safely return home Discharge Recommendations Plan/Recommendations: Discharge/Goals Met (goal met) Treatment Plan/Plan of Care Patient would benefit from OT for education, treatment and training to promote independence in ADL's, mobility, safety and/or upper extremity function for ADL' s. Plan of Care: UE Funct Exercise/Act Treatment Duration: Jun 15, 2017 Frequency: 5 times per week Estimated Hrs Per Day: .25 hour per day Agreement: Yes Rehab Potential: Good Time/GCodes Start Time: 13:35 Stop Time: 13:50 Total Time Billed (hr/min): 15 Billed Treatment Time visit, 15 minutes exercise AYE SORENSON OT Jun 10, 2017 14:47
--- NOTE | 2017-06-10 14:49 | Therapy Team Discharge Summary ---
Therapy Discharge Summary Discharge Recommendations Date of Discharge Occupational Therapy Pt seen for skilled OT to develop room/home exercise program. pt was modified independent to independent with eating, grooming and toileting on and mission and discharge form OT. pt demonstrated independence in exercise program and continues to do it in his room. Goal met. DC OT. No continued therapy recommended. Decreased Activ Tolerance, Decreased UE Strength PT Knotter Hand Goals Knotter Hand Goals PT Knotter Hand Goals Time Frame: Jun 15, 2017 Transfers (B,C,W/C) (FIM): 7 Sit to Lying (QC): 6 Lying-Sitting on Side/Bed(QC): 6 Sit to Stand (QC): 6 Rollin Does the Patient Walk: Yes Distance: 2000 Walk 50ft with 2 Turns (QC): 6 Walk 150 ft (QC): 6 Gait Level of Assist: 6 Gait Assistive Device: FWW OT Knotter Hand Goals Group Home Goals Time Frame: Jun 15, 2017 Pt will be modified independent with home/room exercise program - goal met Additional Goals: 3-ImproveStrength/Rudolph 1=Demonstrate adherence to instructed precautions during ADL tasks. 2=Patient will verbalize/demonstrate understanding of assistive devices/ modifications for ADL. 3=Patient will improve strength/tolerance for activity to enable patient to perform ADL's. AYE SORENSON OT Jun 10, 2017 14:49
[2017-06-10 18:00] VITALS: BP 110/69
[2017-06-11 05:29] VITALS: BP 113/65
[2017-06-11] MEDS: LACTOBACILLUS Acidoph/Bulgar (LACTINEX/FLORANEX) TAB PO SCH ×3 (05:31→16:45)
[2017-06-11] MEDS: D5W IV SCH ×3 (05:31→20:31)
[2017-06-11] MEDS: MEROPENEM IV SCH ×3 (05:31→20:31)
[2017-06-11] MEDS: metroNIDAZOLE 500 MG (FLAGYL) TAB PO SCH ×2 (08:23→13:20)
--- NOTE | 2017-06-11 10:33 | Physical Therapy Daily Note ---
PT Daily Note-Current Subjective Pt laying R side lying upon arrival. Pt agrees to PT. Pain Location: No Pain Reported Mental Status Patient Orientation: Person, Place, Time, Situation Attachments: IV Transfers Functional [place] Measure 0=Not Assessed/NA 4=Minimal Assistance 1=Total Assistance 5=Supervision or Setup 2=Maximal Assistance 6=Modified [place] 3=Moderate Assistance 7=Complete IndependenceIRFPAI Quality Coding Scale 6 Independent with activity with or without an assistive device 5 Patient requires set up or clean up by helper. Patient completes activity by themselves 4 Supervision or touching assist (CGA). [place] provide cues , steadying assist 3 The helper provides less than half the effort to complete the activity 2 The helper provides more than half the effort to complete the activity 1 Dependent. The helper does all the effort to complete an activity 7 Patient refused to complete or attempt activity 9 The patient did not perform the activity before the current illness or injury 88 Not attempted due to Medical conditions or safety concerns Scootin Roll Left to Right (QC): 6 Supine to/from Sit: 6 Sit to/from Stand: 6 Sit to Lying (QC): 6 Sit to Stand (QC): 6 Weight Bearing Right Lower Extremity: Right Weight Bearing/Tolerated Left Lower Extremity: Left Weight Bearing/Tolerated Gait Training Does the Patient Walk?: Yes Distance (FIM): 3=150 ft Distance: 900+' Walk 50 ft with 2 Turns(QC): 6 Walk 150 ft (QC): 6 Gait Level of Assist: 6 Gait Persons Needed: 1 Gait Assistive Device: FWW Pt has slightly flexed posture but otherwise normalized gait pattern. Wheelchair Training Does the Pt Use a Wheelchair?: No Treatments Pt transfers from bed to standing using FWW at Mod I. Pt ambulates in hallway using FWW at Mod I. Pt returns to room to rest and warm up at end of walk. Pt resting at end of tx with all needs met. Assessment Current Status: Good Progress Pt ambulates very well and is very independent and safe with transfers and ambulation. PT Halfway Goals Grain Elevator Worker Goals PT Halfway Goals Time Frame: Jun 15, 2017 Transfers (B,C,W/C) (FIM): 7 Sit to Lying (QC): 6 Lying-Sitting on Side/Bed(QC): 6 Sit to Stand (QC): 6 Rollin Does the Patient Walk: Yes Distance: 2000 Walk 50ft with 2 Turns (QC): 6 Walk 150 ft (QC): 6 Gait Level of Assist: 6 Gait Assistive Device: FWW PT Plan Problem List Problem List: Activity Tolerance Treatment/Plan Treatment Plan: Continue Plan of Care Treatment Plan: Gait Treatment Duration: Jun 15, 2017 Frequency: 6 times per week Estimated Hrs Per Day: .25 hour per day Patient and/or Family Agrees t: Yes Safety Risks/Education Patient Education: Correct Positioning, Safety Issues Teaching Recipient: Patient Teaching Methods: Discussion Response to Teaching: Verbalize Understanding Time/GCodes Time In: 950 Time Out: 1010 Total Billed Treatment Time: 20 Total Billed Treatment 1, GT (20m) CONNOR UMANZOR COORDINATE MEASURING MACHINE TECHNICIAN Jun 11, 2017 10:33
[2017-06-11] MEDS: MAGNESIUM OXIDE (MAG-OX)400 MG TAB PO SCH (13:20)
[2017-06-11 18:15] VITALS: BP 106/57
[2017-06-11] MEDS: HYDROcodone/APAP 5 MG/325 MG (LORTAB) TAB PO PRN (22:31)
[2017-06-12 06:00] VITALS: BP 136/74
[2017-06-12] MEDS: D5W IV SCH ×3 (06:13→20:56)
[2017-06-12] MEDS: LACTOBACILLUS Acidoph/Bulgar (LACTINEX/FLORANEX) TAB PO SCH ×3 (06:13→17:26)
[2017-06-12] MEDS: MEROPENEM IV SCH ×3 (06:13→20:56)
[2017-06-12] MEDS: MAGNESIUM OXIDE (MAG-OX)400 MG TAB PO SCH (11:24)
[2017-06-12 18:15] VITALS: BP 103/63
[2017-06-13] MEDS: LACTOBACILLUS Acidoph/Bulgar (LACTINEX/FLORANEX) TAB PO SCH (05:42)
[2017-06-13] MEDS: D5W IV SCH (05:43)
[2017-06-13] MEDS: MEROPENEM IV SCH (05:43)
[2017-06-13 06:00] VITALS: BP 143/63
--- NOTE | 2017-06-13 06:52 | Progress Note-Urology ---
Progress Note-Urology Progress Notes/Assess & Plan Progress/Assessment & Plan AFEBRILE, VSS. FEELING WELL. HOME WITH INSTRUCTIONS Final Diagnosis UROSEPSIS BRONWYN MAZARIEGOS MD Jun 13, 2017 06:52
--- NOTE | 2017-06-13 10:23 | Discharge Instructions ---
Discharge Instructions Patient Instructions Patient Instructions: Observe for recurrence of fever. Resume usual activities. Medications as listed on the discharge sequence Activity & Diet Discharge Diet: No Restrictions Activity as Tolerated: Yes DRE HE MD Jun 13, 2017 10:23
--- NOTE | 2017-06-13 10:33 | Progress Note-Hospitalist ---
Standard Progress Note Progress Notes/Assess & Plan Date Seen 06/13/17 Time Seen by Provider: 10:28 Diagnosis Urinary tract infection, multiply drug resistant Escherichia coli. 2.recent ureterolithiasis with hydroureter and hydronephrosis. Status post intervention. Assess & Plan/Chief Complaint The patient is on day 10 of meropenem for multiply drug-resistant Escherichia coli. He is afebrile. He is up and walking in the halls. He has felt ready for discharge. Physical exam: Gait is vigorous. Lungs are clear to auscultation. CV is regular. Impression: Day 10 IV antibiotics for drug-resistant Escherichia coli. Plan: Home with medications as on discharge sequence. Keep appointment with Dr. Nunez as scheduled. DRE HE MD Jun 13, 2017 10:33
--- NOTE | 2017-06-13 10:45 | Therapy Team Discharge Summary ---
Therapy Discharge Summary Discharge Recommendations Date of Discharge Physical Therapy Patient is currently at modified independent [facility] with all gross motor skills and will dismiss to home on this date. Patient is ambulating with FWW in hallway ad monik without difficulty. Goals were address and attained. Occupational Therapy Decreased Activ Tolerance, Decreased UE Strength PT Corporate Communications Specialist Goals Skilled Nursing Goals PT Skilled Nursing Goals Time Frame: Jun 15, 2017 Transfers (B,C,W/C) (FIM): 7 (met 06/13/17) Sit to Lying (QC): 6 (met 06/13/17) Lying-Sitting on Side/Bed(QC): 6 (met 06/13/17) Sit to Stand (QC): 6 (met 06/13/17) Rollin (met 06/13/17) Does the Patient Walk: Yes Distance: 2000 Walk 50ft with 2 Turns (QC): 6 (met 06/13/17) Walk 150 ft (QC): 6 (met 06/13/17) Gait Level of Assist: 6 (met 06/13/17) Gait Assistive Device: FWW OT Skilled Nursing Goals Skilled Nursing Goals Time Frame: Jun 15, 2017 Pt will be modified independent with home/room exercise program - goal met Additional Goals: 3-ImproveStrength/Rudolph 1=Demonstrate adherence to instructed precautions during ADL tasks. 2=Patient will verbalize/demonstrate understanding of assistive devices/ modifications for ADL. 3=Patient will improve strength/tolerance for activity to enable patient to perform ADL's. ISABELLA COE PT Jun 13, 2017 10:45
== END 2017-06-13 11:45 | disposition home or self-care (01) | DRG 872 ==
LOC: 4TH 15:28
PROVIDERS: ADMIT Family Medicine; ATTEND Family Medicine
DX: A41.51 Sepsis due to Escherichia coli [E. coli] (principal); N39.0 Urinary tract infection, site not specified; R31.9 Hematuria, unspecified; N41.0 Acute prostatitis; A04.72 Enterocolitis due to Clostridium difficile, not specified as recurrent; I12.9 Hypertensive chronic kidney disease with stage 1 through stage 4 chronic kidney disease, or unspecified chronic kidney disease; N18.3 Chronic kidney disease, stage 3 (moderate); I48.0 Paroxysmal atrial fibrillation; N28.9 Disorder of kidney and ureter, unspecified; N40.0 Benign prostatic hyperplasia without lower urinary tract symptoms; Z97.8 Presence of other specified devices; E78.00 Pure hypercholesterolemia, unspecified; G62.9 Polyneuropathy, unspecified; K21.9 Gastro-esophageal reflux disease without esophagitis; K44.9 Diaphragmatic hernia without obstruction or gangrene; M54.9 Dorsalgia, unspecified; M19.91 Primary osteoarthritis, unspecified site; Z87.442 Personal history of urinary calculi; Z87.11 Personal history of peptic ulcer disease; Z85.828 Personal history of other malignant neoplasm of skin

== ENCOUNTER → 2017-07-04 | Outpatient (CLI) | payer MEDICARE ==
[~2017-07-04] MED LIST changes: +HYDR-3870 PO; -HYDR-3874 PO
--- NOTE | 2017-07-04 12:02 | Diagnostic Imaging Report ---
PROCEDURE: CT abdomen and pelvis without contrast. TECHNIQUE: Multiple contiguous axial images were obtained through the abdomen and pelvis without the use of intravenous contrast. INDICATION: Right flank pain. Patient had a previous right-sided nephrostomy tube. Correlation is made with prior exam from 05/26/2017. FINDINGS: The lung bases are clear. The previously noted pericardial effusion has decreased in size. No pleural fluid is identified on today's study. The liver and gallbladder are unremarkable. The pancreas and spleen are unremarkable. No adrenal mass is detected. Previously noted right-sided percutaneous nephrostomy tube has been removed. Previously noted small nonobstructing calculus in the lower pole of the right kidney is no longer visualized. There is a tiny cortical calcific density in the posterior aspect of the lower pole of the right kidney. No hydronephrosis is seen. Previously noted calculus at the UVJ on the right is no longer visualized. The bladder is unremarkable. The aorta is heavily calcified but nonaneurysmal. The small and large bowel loops are normal caliber. There is no ascites. A left convexity lumbar scoliotic curvature is seen. There are postop changes at multiple levels in the lumbar spine. IMPRESSION: 1. Removal of right-sided percutaneous nephrostomy tube. Previously noted right UVJ calculus is no longer present. A lower pole right renal calculus is no longer present. There is a tiny cortical calcification on the right. No acute feature is seen. 2. Improving pericardial and bilateral pleural effusions since prior exam from 05/26/2017. Dictated by: Dictated on workstation # [id number]
== END ==
LOC: RAD 11:07
PROVIDERS: ATTEND Urology
DX: I31.3 Pericardial effusion (noninflammatory) (principal); Z93.6 Other artificial openings of urinary tract status
CPT/HCPCS: 74176

== ENCOUNTER → 2018-01-23 | Outpatient (CLI) | payer MEDICARE ==
[2018-01-23 12:57] LABS: CREATININE SERUM 2.02 MG/DL (0.60-1.30)
--- NOTE | 2018-01-23 16:04 | Diagnostic Imaging Report ---
PROCEDURE: CT abdomen and pelvis without contrast. TECHNIQUE: Multiple contiguous axial images were obtained through the abdomen and pelvis without the use of intravenous contrast. INDICATION: Left lower quadrant pain. Comparison made with prior examination from 07/04/2017. FINDINGS: Heart size is normal. Lung bases are clear. The liver is normal in size without focal lesions. Gallbladder is unremarkable. There is no biliary ductal dilatation. Spleen is normal. The pancreas and adrenal glands are unremarkable. There appears to be mild atrophy of both kidneys. There are tiny bilateral nonobstructing renal stones. There is some atherosclerotic calcification of the aorta which is nonaneurysmal. There is a right inguinal hernia containing a single loop of bowel. This does not however appear to be obstructed or strangulated. There is no free air. There is no ascites. There are no focal inflammatory changes. There are degenerative and postsurgical changes in the spine. IMPRESSION: Bilateral nephrolithiasis without evidence of obstructive uropathy. Small right inguinal hernia containing a loop of small bowel. The herniated loop of bowel does not appear to be obstructed or strangulated. Degenerative and postsurgical changes in the spine. Dictated by: Dictated on workstation # [id number]
== END ==
LOC: RAD 12:32
PROVIDERS: ATTEND Surgery
DX: N20.0 Calculus of kidney (principal); K46.9 Unspecified abdominal hernia without obstruction or gangrene; M47.819 Spondylosis without myelopathy or radiculopathy, site unspecified; Z98.890 Other specified postprocedural states
CPT/HCPCS: 36415; 74176; 82565; 84520

== ENCOUNTER → 2018-07-05 | Outpatient (CLI) | payer MEDICARE ==
[~2018-07-05] MED LIST changes: +METR-143 PO; -METR250T32 PO
== END ==
LOC: CARD 08:50
PROVIDERS: ATTEND Internal Medicine Cardiovascular Disease
DX: R07.89 Other chest pain (principal); I50.30 Unspecified diastolic (congestive) heart failure; I44.4 Left anterior fascicular block; I08.1 Rheumatic disorders of both mitral and tricuspid valves; E78.5 Hyperlipidemia, unspecified; I48.91 Unspecified atrial fibrillation
CPT/HCPCS: 93306

== ENCOUNTER → 2018-12-18 | Outpatient (CLI) | payer MEDICARE ==
[~2018-12-18] MED LIST changes: -CYAN500T2 PO; +CYAN500T62 PO; -OMEP20CA12 PO; +OMEP20CA13 PO
--- NOTE | 2018-12-18 15:56 | Diagnostic Imaging Report ---
CLINICAL INDICATION: Patient with thoracic and lumbar spine pain which is chronic and increasing pain. Patient has history of lumbar spine surgery. EXAM: MRI of the thoracic spine without contrast. Sequences include sagittal T2, sagittal T1, sagittal T2 fat-sat, and axial T2. COMPARISON: MRI of the thoracic spine dated 11/24/2016. FINDINGS: There is no interval acute thoracic spine fracture or dislocation. There are hypertrophic spurs seen throughout the thoracic spine and facet arthropathy. There is no significant change to the T1-T2 diffuse disc bulge with associated posterior disc herniation. There is stable ligamentum flavum buckling and facet arthropathy at the T1-T2 level. Stable T1-T2, severe right neural foramen narrowing and moderate left neural foramen narrowing. Stable T1-T2, tbyi-le-nqjfmczu central canal narrowing. There is no significant change to the T11-T12 diffuse disc bulge with superimposed disc herniation extending into the left foraminal region. There is stable T11-T12 severe left neural foramen narrowing and moderate right neural foramen narrowing. There is stable moderate T11-T12 central canal narrowing. Stable left-sided facet arthropathy at the T10-T11 level. The remainder of the thoracic spine shows no significant central canal or neural foramen narrowing. There are no other areas of significant disc bulge or herniation. There is no significant paraspinal soft tissue abnormality. IMPRESSION: 1: There is no significant change to the multilevel thoracic spine degenerative disease which is most pronounced at the T1-T2 and T11-T12 levels. 2: There is no acute fracture or dislocation. Dictated by: Dictated on workstation # [id number]
--- NOTE | 2018-12-18 16:18 | Diagnostic Imaging Report ---
CLINICAL INDICATION: Patient with thoracic and lumbar spine pain which is chronic and increasing. Patient has history of lumbar surgery. EXAM: MRI of the lumbar spine performed without IV contrast. Sequences include sagittal T2, sagittal T1, sagittal T2 fat-sat, and axial T2. COMPARISON: MRI of the lumbar spine without contrast dated 12/09/2016. 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 There are interval postop changes with placement of L2-L3 and L3-L4 anterior lumbar interbody fusion hardware. Susceptibility artifact is seen in the region. Interspinous fusion devices at the L3-L4 and L4-L5 levels are again seen. There is no paraspinal fluid collection. There is no acute lumbar spine fracture or dislocation. The visualized portions of the distal thoracic spinal cord, conus medullaris, and cauda equina nerve roots are unremarkable. The conus medullaris tip is seen at the L1-L2 intervertebral level. There are degenerative spurs involving the lumbar spine and facet arthropathy. T11-T12: There is a diffuse disc bulge and facet arthropathy. There is moderate central canal narrowing, severe left neural foramen narrowing and gnpn-ob-axwtodlc right neural foramen narrowing. There is bilateral facet arthropathy/hypertrophy. This level was not imaged on the prior study. T12-L1: There is no significant central spinal canal or neural foramen narrowing. L1-L2: There is stable moderate bilateral facet arthropathy. There is stable mild diffuse disc bulge. There is no significant central canal narrowing. There is stable bppd-hr-mrdrwebf left neural foramen narrowing and no significant right neural foramen narrowing. L2-L3: Again seen severe bilateral facet arthropathy/hypertrophy. The degenerative facet effusion on the right and left has decreased. There is interval slight decreased ligamentum flavum buckling. There is lxjellxz-mo-bzjfux central canal stenosis which has slightly improved. There is decreased size of the previously seen posterior disc herniation with vertebral body spurs noted posteriorly. There is stable severe right neural foramen narrowing and moderate left neural foramen narrowing. L3-L4: Stable moderate bilateral facet arthropathy/hypertrophy. There is no significant central canal narrowing. There is no significant central canal or neural foramen narrowing. L4-L5: There is a diffuse disc bulge with small disc herniation in the right subarticular region, which has minimally progressed. There is moderate loss of intervertebral disc height. There is severe bilateral facet arthropathy/hypertrophy which is stable. There is mild central canal narrowing and severe bilateral neural foramen narrowing which is stable. L5-S1: There is stable severe bilateral facet arthropathy/hypertrophy and ligamentum flavum buckling. Stable hzar-gu-cczrhjxg central canal narrowing and yxrk-rl-lkarxfsj bilateral neural foramen narrowing. There is no significant posterior disc bulge. IMPRESSION: 1: There are interval postop changes with placement of L2 through L4 anterior lumbar interbody fusion. There is stable L3-L4 and L4-L5 interspinous fusion hardware. 2: Previously seen central canal narrowing at the L2-L3 level has improved due to decreased ligamentum flavum buckling and repair of the posterior disc herniation. 3: There is slight progression of small disc herniation in the L4-L5 right subarticular region with otherwise stable diffuse disc bulge. 4: The remainder of the lumbar spine degenerative changes are described above. Dictated by: Dictated on workstation # [id number]
== END ==
LOC: RAD 13:31
PROVIDERS: ATTEND Physician Assistant
DX: M48.061 Spinal stenosis, lumbar region without neurogenic claudication (principal); Z98.1 Arthrodesis status; Z98.890 Other specified postprocedural states; M47.814 Spondylosis without myelopathy or radiculopathy, thoracic region
CPT/HCPCS: 72146; 72148

== ENCOUNTER 2019-02-20 08:24 | Inpatient (IN) | payer MEDICARE ==
[~2019-02-20] VITALS: Ht 172.7 cm; Wt 81.3 kg
--- NOTE | 2019-02-20 09:06 | ED Respiratory ---
General Chief Complaint: Respiratory Problems Stated Complaint: SOA Nursing Triage Note: AMB TO ED WITH C/O BEING SOA SINCE THIS WEEKEND Source: patient, family Exam Limitations: no limitations History of Present Illness Date Seen by Provider: Feb 20, 2019 Time Seen by Provider: 09:02 Initial Comments This 89 yo w male presents w sob for 2 days. No chest pain, fever, or productive cough. Hx of A. fib corrected by Multaq by Dr. Kelley. No N,V, change in meds, or diet. Allergies and Home Medications Allergies Coded Allergies: Penicillins (Verified Allergy, Severe, Anaphylaxis (pt tolerates Ceftriaxone), 04/19/17) iodine (Verified Allergy, Unknown, 09/01/06) Uncoded Allergies: SURGICAL GLUE (Allergy, Severe, "TOOK OFF SKIN", 06/04/17) Home Medications Ascorbate Calcium/Bioflavonoid 1 Each Tablet, 1,000 MG PO 1200, (Reported) Calcium Carbonate/Vitamin D3 1 Each Tablet, 1 TAB PO 1200, (Reported) Cholecalciferol (Vitamin D3) 2,000 Unit Capsule, 2,000 UNIT PO 1200, (Reported) Cyanocobalamin (Vitamin B-12) 500 Mcg Tablet, 500 MCG PO 1200, (Reported) Fenofibrate 160 Mg Tablet, 160 MG PO HS, (Reported) Fish Oil/Dha/Epa 1 Each Capsule, 1,200 MG PO 1200, (Reported) Folic Acid 0.4 Mg Tablet, 0.4 MG PO 1200, (Reported) Gelatin 650 Mg Capsule, 1,300 MG PO 1200, (Reported) Hydrocodone/Acetaminophen 1 Each Tablet, 1 TAB PO Q6H PRN for PAIN-MODERATE, (Reported) Magnesium Oxide 400 Mg Capsule, 400 MG PO 1200, (Reported) Metoprolol Succinate 25 Mg Tab.er.24h, 25 MG PO HS, (Reported) Mv,Minerals/FA/Lycopene/Ginkgo 1 Each Tablet, 1 TAB PO 1200, (Reported) Omeprazole 20 Mg Capsule.dr, 20 MG PO DAILY PRN for HEARTBURN, (Reported) Patient Home Medication List Home Medication List Reviewed: Yes Review of Systems Review of Systems Constitutional: No chills, No fever EENTM: No hearing loss Respiratory: see HPI; No cough; short of breath; No wheezing Cardiovascular: No chest pain, No palpitations Gastrointestinal: No abdominal pain, No diarrhea, No nausea, No vomiting Genitourinary: No dysuria, No frequency Musculoskeletal: No back pain Skin: No rash Psychiatric/Neurological: No Symptoms Reported Hematologic/Lymphatic: No Symptoms Reported Immunological/Allergic: no symptoms reported Past Glwtrib-Kytojl-Cfcjmo Hx Past Med/Social Hx: Reviewed Nursing Past Med/Soc Hx Patient Social History Alcohol Use: Denies Use Recreational Drug Use: No Smoking Status: Never a Smoker 2nd Hand Smoke Exposure: No Recent Foreign Travel: No Contact w/Someone Who Travel: No Recent Infectious Disease Expo: No Recent Hopitalizations: Yes Immunizations Up To Date PED Vaccines UTD: No Date of Pneumonia Vaccine: May 02, 2013 Date of Influenza Vaccine: Jan 30, 2017 Seasonal Allergies Seasonal Allergies: No Past Medical History Surgeries: Yes Orthopedic, Renal Respiratory: No Cardiac: Yes (PT VOICED HE HAD HEART MONITOR, SEES DR KELLEY) Atrial Fibrillation, High Cholesterol, Hypertension Neurological: Yes Neuropathy Reproductive Disorders: Yes Genitourinary: Yes (uti-current) Benign Prostatic Hyperpl, Bladder Infection, Kidney Stones Gastrointestinal: Yes Gastroesophageal Reflux, Esophagitis, Hiatal Hernia, Ulcer Musculoskeletal: Yes Arthritis, Chronic Back Pain Endocrine: No HEENT: No Cancer: Yes Skin Psychosocial: No Integumentary: No Blood Disorders: No Family Medical History Patient reports no known family medical history. No Pertinent Family Hx Physical Exam Vital Signs - First Documented 02/20/19 08:24 Temp 36.7 Pulse 71 Resp 18 B/P (MAP) 145/76 (99) Pulse Ox 92 O2 Delivery Room Air O2 Flow Rate 2.00 FiO2 92 Capillary Refill : Less Than 3 Seconds Height: 5'8.00" Weight: 176lbs. 5.0oz. [id number]; 28.00 BMI Method:Stated General Appearance: WD/WN, no apparent distress Eyes: Bilateral Eye Normal Inspection HEENT: normal ENT inspection Neck: full range of motion, supple Respiratory: decreased breath sounds Cardiovascular: normal peripheral pulses, regular rate, rhythm Gastrointestinal: normal bowel sounds, soft Extremities: normal range of motion, non-tender Neurologic/Psychiatric: no motor/sensory deficits, alert, normal mood/affect Skin: normal color, warm/dry Procedures/Interventions Suture Size: 2-0 Progress/Results/Core Measures Suspected Sepsis Recent Fever Within 48 Hours: No Infection Criteria Present: None New/Unexplained Altered Menta: No Sepsis Screen: No Definite Risk SIRS Temperature: Pulse: 71 Respiratory Rate: 18 Laboratory Tests 02/20/19 09:16: White Blood Count 10.7 Blood Pressure 145 /76 Mean: 99 Laboratory Tests 02/20/19 08:58: INR Comment 1.1 02/20/19 09:16: Creatinine 2.13H, Platelet Count 143, Total Bilirubin 0.5 Results/Orders Lab Results Laboratory Tests Test 02/20/19 08:58 02/20/19 09:16 Range/Units Prothrombin Time 14.3 12.2-14.7 SEC INR Comment 1.1 0.8-1.4 Activated Partial Thromboplast Time 25 24-35 SEC D-Dimer > 20.00 *H 0.00-0.49 UG/ML White Blood Count 10.7 4.3-11.0 10^3/uL Red Blood Count 3.94 L 4.35-5.85 10^6/uL Hemoglobin 12.6 L 13.3-17.7 G/DL Hematocrit 40 40-54 % Mean Corpuscular Volume 101 H 80-99 FL Mean Corpuscular Hemoglobin 32 25-34 PG Mean Corpuscular Hemoglobin Concent 32 32-36 G/DL Red Cell Distribution Width 14.9 H 10.0-14.5 % Platelet Count 143 130-400 10^3/uL Mean Platelet Volume 10.6 H 7.4-10.4 FL Neutrophils (%) (Auto) 74 42-75 % Lymphocytes (%) (Auto) 7 L 12-44 % Monocytes (%) (Auto) 18 H 0-12 % Eosinophils (%) (Auto) 0 0-10 % Basophils (%) (Auto) 0 0-10 % Neutrophils # (Auto) 8.0 H 1.8-7.8 X 10^3 Lymphocytes # (Auto) 0.7 L 1.0-4.0 X 10^3 Monocytes # (Auto) 2.0 H 0.0-1.0 X 10^3 Eosinophils # (Auto) 0.0 0.0-0.3 10^3/uL Basophils # (Auto) 0.0 0.0-0.1 10^3/uL Neutrophils % (Manual) 70 % Lymphocytes % (Manual) 10 % Monocytes % (Manual) 12 % Eosinophils % (Manual) 1 % Basophils % (Manual) 1 % Metamyelocytes % 2 % Band Neutrophils 4 % Macrocytosis SLIGHT Elliptocytes SLIGHT Sodium Level 139 135-145 MMOL/L Potassium Level 5.0 3.6-5.0 MMOL/L Chloride Level 110 H 98-107 MMOL/L Carbon Dioxide Level 18 L 21-32 MMOL/L Anion Gap 11 5-14 MMOL/L Blood Urea Nitrogen 46 H 7-18 MG/DL Creatinine 2.13 H 0.60-1.30 MG/DL Estimat Glomerular Filtration Rate 30 BUN/Creatinine Ratio 22 Glucose Level 98 70-105 MG/DL Calcium Level 9.3 8.5-10.1 MG/DL Corrected Calcium 9.3 8.5-10.1 MG/DL Magnesium Level 2.2 1.6-2.4 MG/DL Total Bilirubin 0.5 0.1-1.0 MG/DL Aspartate Amino Transf (AST/SGOT) 20 5-34 U/L Alanine Aminotransferase (ALT/SGPT) 19 0-55 U/L Alkaline Phosphatase 35 L 40-136 U/L Myoglobin 80.2 10.0-92.0 NG/ML Troponin I 0.210 H <0.028 NG/ML B-Type Natriuretic Peptide 213.7 H <100.0 PG/ML Total Protein 6.8 6.4-8.2 GM/DL Albumin 4.0 3.2-4.5 GM/DL My Orders Orders - ONESMIO, IMELDA Turner MD Cbc With Automated Diff (02/20/19 08:50) Magnesium (02/20/19 08:50) Chest 1 View, Ap/Pa Only (02/20/19 08:50) Ekg Tracing (02/20/19 08:50) Cardiac Profile 1 (02/20/19 08:50) Comprehensive Metabolic Panel (02/20/19 08:50) Myoglobin Serum (02/20/19 08:50) Protime With Inr (02/20/19 08:50) Partial Thromboplastin Time (02/20/19 08:50) O2 (02/20/19 08:50) Monitor-Rhythm Ecg Trace Only (02/20/19 08:50) Lipid Panel (02/21/19 06:00) Ed Iv/Invasive Line Start (02/20/19 08:50) BNP (02/20/19 08:53) Fibrin Degradation Products (02/20/19 08:53) Manual Differential (02/20/19 09:16) Lung Scan V And P (Vq) (02/20/19 10:33) Enoxaparin Injection (Lovenox Injection) (02/20/19 10:45) Vital Signs/I&O 02/20/19 02/20/19 08:24 08:24 Temp 36.7 Pulse 71 Resp 18 B/P (MAP) 145/76 (99) Pulse Ox 92 O2 Delivery Room Air Nasal Cannula O2 Flow Rate 2.00 FiO2 92 Capillary Refill : Less Than 3 Seconds Blood Pressure Mean: 99 Progress Note : Time: 10:28 Progress Note The patient's troponin was elevated at 0.28. His chest x-ray was unremarkable. His D-dimer was 20. The remainder the patient's laboratory evaluation was unremarkable. I placed a call to Dr. Kelley. He recommended we initiate Lovenox. Patient's renal status is such that he cannot have a PE study. I ordered a V/Q scan. I placed a call Dr. Mary for a telemetry admission. ECG Initial ECG Impression Date: Feb 20, 2019 Departure Communication (Admissions) Time/Spoke to Admitting Phy: 10:41 I have placed a call Dr. Byrne awaiting her reply. Time/Spoke to Consulting Phy: 10:41 Dr. Kelley. Impression Primary Impression: Elevated d-dimer Additional Impression: Shortness of breath Disposition: ADMITTED INPATIENT Condition: Unchanged Admissions Decision to Admit Reason: Admit from ER (General) Decision to Admit/Date: Feb 20, 2019 Time/Decision to Admit Time: 10:42 Departure-Patient Inst. Referrals: ILIANA WING MD (PCP/Family) Primary Care Physician IMELDA ECHOSL MD Feb 20, 2019 09:06
[2019-02-20 09:22] LABS: BASOPHILS % (AUTO) 0 % (0-10); EOSINOPHILS % (AUTO) 0 % (0-10); HEMATOCRIT 40 % (40-54); HEMOGLOBIN 12.6 G/DL (13.3-17.7); LYMPHOCYTES # (AUTO) 0.7 X 10^3 (1.0-4.0); LYMPHOCYTES % (AUTO) 7 % (12-44); MEAN CORPUSCULAR HEMOGLOBIN 32 PG (25-34); MEAN CORPUSCULAR HGB CONC 32 G/DL (32-36); MEAN CORPUSCULAR VOLUME 101 FL (80-99); MEAN PLATELET VOLUME 10.6 FL (7.4-10.4); MONOCYTES % (AUTO) 18 % (0-12); NEUTROPHILS % (AUTO) 74 % (42-75); PLATELET COUNT 143 10^3/uL (130-400); RED CELL DISTRIBUTION WIDTH 14.9 % (10.0-14.5); WHITE BLOOD COUNT 10.7 10^3/uL (4.3-11.0)
[2019-02-20 09:23] LABS: INR 1.1 (0.8-1.4); PROTHROMBIN TIME PATIENT 14.3 SEC (12.2-14.7)
[2019-02-20 09:47] LABS: BILIRUBIN,TOTAL 0.5 MG/DL (0.1-1.0); CALCIUM 9.3 MG/DL (8.5-10.1); CREATININE SERUM 2.13 MG/DL (0.60-1.30); MAGNESIUM 2.2 MG/DL (1.6-2.4); TOTAL PROTEIN 6.8 GM/DL (6.4-8.2)
--- NOTE | 2019-02-20 10:07 | Diagnostic Imaging Report ---
PATIENT HISTORY: Shortness of breath and weakness. TECHNIQUE: Single frontal view of the chest. COMPARISON: 06/04/2017. FINDINGS: The lung volumes are normal. No focal consolidation is seen. There is no pleural effusion or pneumothorax. The cardiac silhouette is normal in size. There is aortic atherosclerosis. A desk monitor device is noted. Suture anchors are seen in the right humeral head with evidence of chronic rotator cuff injury. There is a left shoulder arthroplasty. IMPRESSION: No acute pulmonary abnormality is seen. Dictated by: Dictated on workstation # [id number]
[2019-02-20 10:20] LABS: BAND NEUTROPHILS 4 %; BASOPHILS % (MANUAL) 1 %; ELLIPT/OVALOCYTES SLIGHT; EOSINOPHILS % (MANUAL) 1 %; LYMPHOCYTES % (MANUAL) 10 %; METAMYELOCYTES % 2 %; MONOCYTES % (MANUAL) 12 %; NEUTROPHILS % (MANUAL) 70 %
--- NOTE | 2019-02-20 10:20 | NUR ---
TO ROOM NO NEW C/O HR 65 95% 2L 120/66
[2019-02-20] MEDS ORDERED: ENOXAPARIN 100 MG/1 ML (LOVENOX) SYR SC ONE (10:45)
--- NOTE | 2019-02-20 11:30 | NUR ---
FRANTZ CONDE admitted to room 420-1, with an admitting diagnosis of DVT , on 02/20/19 from ER via W/C, accompanied by STAFF.FRANTZ CONDE introduced to surroundings, call light, bed controls, phone, TV, temperature control, lights, meal times, smoking policy, visitor policy, side rail policy, bathrooms and showers. Patient Rights given to patient in the handbook.FRANTZ CONDE verbalizes understanding that [facility] is not responsible for the loss or damage to any personal effects or valuables that are kept in the patients posession during their hospitalization. The following Patient Care Plans were discussed with the PT: Discharge Planning, PAIN CONTROL,IV THERAPY AND LOVENOX TX, and PROCEDURES AND TESTS. FRANTZ CONDE verbalizes understanding of Interdisciplinary Patient Education. Patient and/or family were informed about the Rapid Response Team and its purpose.
[2019-02-20 12:05] VITALS: BP 127/82
[2019-02-20 12:17] VITALS: BP 127/82
--- NOTE | 2019-02-20 12:19 | Diagnostic Imaging Report ---
PROCEDURE: US Venous Lower Ext Ruben. TECHNIQUE: Multiple real-time grayscale images were obtained over the lower extremities in various projections, bilaterally. Additional duplex Doppler and color Doppler images were also obtained. INDICATION: Shortness of breath. A right lower extremity deep venous system shows normal compressibility with normal response to augmentation and Valsalva. Left common femoral vein is widely patent. The upper and mid superficial femoral vein on the left are also patent. There appears to be occlusive thrombus in the lower left femoral vein and popliteal vein. No fluid collections are seen. There is no mass. IMPRESSION: Left lower extremity DVT, as described. Right lower extremity venous system is unremarkable. Dictated by: Dictated on workstation # [id number]
[2019-02-20] MEDS: NS IV 1000 ML 1,000 ML IV SCH (12:21)
[2019-02-20] MEDS ORDERED: DICL100G31 TOP (13:26)
[2019-02-20] MEDS ORDERED: ACET-2650 PO (13:26)
[2019-02-20] MEDS ORDERED: CELE-63 PO (13:26)
[2019-02-20] MEDS ORDERED: ASPI-983 PO (13:26)
[2019-02-20] MEDS ORDERED: DRON400T2 PO (13:26)
--- NOTE | 2019-02-20 13:28 | NUR ---
SPOKE WITH THE PATIENT ABOUT HIS MEDICATIONS. HE HAD A LIST WITH HIM. I COMPARED THE PRESCRIPTION MEDICATIONS WITH THE EXT MED HX. ADDITIONALLY HE STATES HE HAS OMEPRAZOLE HE TAKES NEEDED ONCE DAILY. OTC MEDS: TYLENOL 650MG BID SAEED C 1200 ASPIRIN 81MG 1200 CALCIUM +D 1200 VITAMIN D 1200 B 12 1200 FOLIC ACID 1200 MAG 1200 MTV 1200
[2019-02-20 13:56] LABS: ABG BASE EXCESS -2.7 MMOL/L (-2.5-2.5); ABG OXYGEN SATURATION 96 % (94-100); ABG PCO2 34 MMHG (35-45); ABG PH 7.41 (7.37-7.43); ABG PO2 83 MMHG (79-93); ABG TCO2 22.3 MMOL/L (21.0-31.0)
[2019-02-20 13:57] LABS: ALLENS TEST YES-POS
[2019-02-20 13:58] LABS: INSPIRED O2 RA; PATIENT TEMP 36.6; VENTILATOR NO
[2019-02-20] MEDS ORDERED: OMEPRAZOLE 20 MG (PriLOSEC) CAP NON-FORMULARY PO PRN (14:45)
[2019-02-20] MEDS ORDERED: PANTOPRAZOLE 20 MG TABLET (PROTONIX) PO PRN (15:00)
--- NOTE | 2019-02-20 15:24 | Consultation-Cardiology ---
HPI-Cardiology Cardiology Consultation Date of Consultation 02/20/19 Date of Admission Time Seen by Provider: 15:18 Indication: shortness of breath HPI 89 years old gentleman with history of recurrent back pain, had multiple epidural injection, had the last injection about 2 weeks ago, started having increasing shortness of breath which became worse over the past 2-3 days, came into the emergency room and noted to be in renal failure. Denied any chest pain, had mild twinges in his chest. No syncope or near syncopal episodes. Home Medications & Allergies Allergies: Coded Allergies: Penicillins (Verified Allergy, Severe, Anaphylaxis (pt tolerates Ceftriaxone), 04/19/17) iodine (Verified Allergy, Unknown, 09/01/06) Uncoded Allergies: SURGICAL GLUE (Allergy, Severe, "TOOK OFF SKIN", 06/04/17) Home Medication List Reviewed: Yes WBH-Yiukry-Zvoxtt Hx Patient Social History Marital Status: Alcohol Use: Denies Use Recreational Drug Use: No Smoking Status: Never a Smoker 2nd Hand Smoke Exposure: No Recent Foreign Travel: No Recent Infectious Disease Expo: No Recent Hopitalizations: Yes Immunizations Up To Date Date of Pneumonia Vaccine: May 02, 2013 Date of Influenza Vaccine: Jan 30, 2017 Past Medical History Discussed below Family Medical History Significant Family History: No Pertinent Family Hx Family History: Patient reports no known family medical history. Review of Systems-General Review of Systems Constitutional: No chills; diaphoresis; No fever; malaise, weakness EENTM: No hearing loss Respiratory: see HPI; No cough; dyspnea on exertion, short of breath; No wheezing Cardiovascular: No chest pain, No palpitations Gastrointestinal: see HPI; No abdominal pain, No diarrhea, No nausea, No vomiting Genitourinary: No dysuria, No frequency Musculoskeletal: see HPI, back pain, joint pain Skin: see HPI; No rash Psychiatric/Neurological: No Symptoms Reported, See HPI Reviewed Test Results Reviewed Test Results Lab Laboratory Tests Test 02/20/19 08:58 02/20/19 09:16 02/20/19 12:17 Range/Units Prothrombin Time 14.3 12.2-14.7 SEC INR Comment 1.1 0.8-1.4 Activated Partial Thromboplast Time 25 24-35 SEC D-Dimer > 20.00 *H 0.00-0.49 UG/ML White Blood Count 10.7 4.3-11.0 10^3/uL Red Blood Count 3.94 L 4.35-5.85 10^6/uL Hemoglobin 12.6 L 13.3-17.7 G/DL Hematocrit 40 40-54 % Mean Corpuscular Volume 101 H 80-99 FL Mean Corpuscular Hemoglobin 32 25-34 PG Mean Corpuscular Hemoglobin Concent 32 32-36 G/DL Red Cell Distribution Width 14.9 H 10.0-14.5 % Platelet Count 143 130-400 10^3/uL Mean Platelet Volume 10.6 H 7.4-10.4 FL Neutrophils (%) (Auto) 74 42-75 % Lymphocytes (%) (Auto) 7 L 12-44 % Monocytes (%) (Auto) 18 H 0-12 % Eosinophils (%) (Auto) 0 0-10 % Basophils (%) (Auto) 0 0-10 % Neutrophils # (Auto) 8.0 H 1.8-7.8 X 10^3 Lymphocytes # (Auto) 0.7 L 1.0-4.0 X 10^3 Monocytes # (Auto) 2.0 H 0.0-1.0 X 10^3 Eosinophils # (Auto) 0.0 0.0-0.3 10^3/uL Basophils # (Auto) 0.0 0.0-0.1 10^3/uL Neutrophils % (Manual) 70 % Lymphocytes % (Manual) 10 % Monocytes % (Manual) 12 % Eosinophils % (Manual) 1 % Basophils % (Manual) 1 % Metamyelocytes % 2 % Band Neutrophils 4 % Macrocytosis SLIGHT Elliptocytes SLIGHT Sodium Level 139 135-145 MMOL/L Potassium Level 5.0 3.6-5.0 MMOL/L Chloride Level 110 H 98-107 MMOL/L Carbon Dioxide Level 18 L 21-32 MMOL/L Anion Gap 11 5-14 MMOL/L Blood Urea Nitrogen 46 H 7-18 MG/DL Creatinine 2.13 H 0.60-1.30 MG/DL Estimat Glomerular Filtration Rate 30 BUN/Creatinine Ratio 22 Glucose Level 98 70-105 MG/DL Calcium Level 9.3 8.5-10.1 MG/DL Corrected Calcium 9.3 8.5-10.1 MG/DL Magnesium Level 2.2 1.6-2.4 MG/DL Total Bilirubin 0.5 0.1-1.0 MG/DL Aspartate Amino Transf (AST/SGOT) 20 5-34 U/L Alanine Aminotransferase (ALT/SGPT) 19 0-55 U/L Alkaline Phosphatase 35 L 40-136 U/L Myoglobin 80.2 10.0-92.0 NG/ML Troponin I 0.210 H <0.028 NG/ML B-Type Natriuretic Peptide 213.7 H <100.0 PG/ML Total Protein 6.8 6.4-8.2 GM/DL Albumin 4.0 3.2-4.5 GM/DL Blood Gas Puncture Site RR Blood Gas Patient Temperature 36.6 Arterial Blood pH 7.41 7.37-7.43 Arterial Blood Partial Pressure CO2 34 L 35-45 MMHG Arterial Blood Partial Pressure O2 83 79-93 MMHG Arterial Blood HCO3 21 L 23-27 MMOL/L Arterial Blood Total CO2 22.3 21.0-31.0 MMOL/L Arterial Blood Oxygen Saturation 96 94-100 % Arterial Blood Base Excess -2.7 L -2.5-2.5 MMOL/L Bertrand Test YES-POS Blood Gas Ventilator Setting NO Blood Gas Inspired Oxygen RA Physical Exam Physical Exam Vital Signs Vital Signs - First Documented 02/20/19 08:24 Temp 36.7 Pulse 71 Resp 18 B/P (MAP) 145/76 (99) Pulse Ox 92 O2 Delivery Room Air O2 Flow Rate 2.00 FiO2 92 Capillary Refill : Less Than 3 Seconds Height, Weight, BMI Height: 5'8.00" Weight: 176lbs. 5.0oz. 79.674892sv; 27.25 BMI Method:Stated General Appearance: WD/WN, Mild Distress Eyes: Bilateral Eye Normal Inspection HEENT: PERRL/EOMI, TMs Normal, Normal ENT Inspection, Pharynx Normal, Moist Mucous Membranes Neck: Full Range of Motion, Normal Inspection, Non Tender, Supple, Carotid Bruit Respiratory: Chest Non Tender, Normal Breath Sounds, No Accessory Muscle Use, No Respiratory Distress Cardiovascular: Regular Rate, Rhythm, No Edema, No Gallop, No JVD, Normal Peripheral Pulses, Systolic Murmur Gastrointestinal: Normal Bowel Sounds, No Organomegaly, No Pulsatile Mass, Non Tender, Soft Back: Normal Inspection, No CVA Tenderness, No Vertebral Tenderness Extremity: Normal Capillary Refill, Normal Inspection, Normal Range of Motion, Non Tender, No Calf Tenderness, No Pedal Edema Neurologic/Psychiatric: Alert, Oriented x3, No Motor/Sensory Deficits, Normal Mood/Affect Skin: Normal Color, Warm/Dry Lymphatic: No Adenopathy A/P-Cardiology Admission Diagnosis Deep venous thrombosis Shortness of breath Paroxysmal atrial fibrillation Back pain Assessment/Plan Acute shortness of breath, probably pulmonary embolism, had elevated d-dimer, venous Doppler study established left DVT, scheduled for VQ scan, unable to tolerate CT due to renal insufficiency. Started on Lovenox therapeutic dose, will need to be on oral anticoagulation Acute renal insufficiency, started on IV fluid and monitor renal function Paroxysmal atrial fibrillation, had a reveal, monitoring showed improvement since he started on Multaq on June 22, 2017, no further episodes were reported. Currently off Eliquis secondary to recurrent conjunctival bleed of the eye, maintained on aspirin. Back pain, status post multiple injection, had epidural injection about 10 days ago. Continue to monitor for any signs of bleeding [id number] score is 3, yearly risk of stroke without oral anticoagulation is 3.2 percent. History of recurrent conjunctival bleed while on Eliquis, he will need to be back on oral anticoagulation due to the DVT and atrial fibrillation Conjunctival bleed on the right, improved at this time. Continue to monitor Palpitations, PVCs-maintained on Toprol-XL 25 mg daily. Unable to increased dose secondary to underlying borderline hypotension and bradycardia Stress test showed extracardiac attenuation with mild ischemia at the inferior wall and inferolateral wall, stress score is 4, SDS is 2, patient is asympt omatic. Medical therapy is recommended no intervention is warranted. Echocardiogram done on July 05, 2018 showing normal left ventricular size with ejection fraction 55-65 percent, grade 2 diastolic dysfunction, mild MR, aortic valve sclerosis, PA 35 mmHg. Continue to monitor Mild bilateral carotid stenosis, nonobstructive disease, last ultrasound was done in May 2018, continue to monitor Lower extremities cramps in pain usually with exertion relieved by rest, reporting improvement, YOSEF was done in January 2017 and it was normal, venous Doppler showed DVT Hyperlipidemia, maintained on fenofibrate, last lipid profile was done on May 25, 2018 showing total cholesterol 189, HDL 53, triglyceride 196, LDL 97. Continue on current medication no changes are recommended, monitor lipids Kidney stone, urinary tract infection, had nephrostomy tube and stent, tube was removed on June 07, 2017, reporting improvement History of multiple surgeries in the past including tonsils, appendix, TURP, rotator cuff on both sides, kidney stones, EGD. Back surgery. DYLON HERNANDEZ MD Feb 20, 2019 15:23
--- NOTE | 2019-02-20 15:41 | History & Physical-Hospitalist ---
PADMINI JONES [facility] 02/20/19 1541: History of Present Illness HPI/Chief Complaint pt is a 89 y.o white male w/ PMH of paroxysmal Afib, dyslipidemia, and chronic back pain who presented to the ED with progressively worsening SOB since 02/17/19. Pt denies any accompanying chest pains, palpitations, dizziness, JOSE, cough, Fevers, chills, N/V, or any neurological sx. States SOB exacerbates with exertion. He also reports a few episodes of CP which he describes as "twinges" last week, which have resolved since then. Pt has hx of chronic back pain and recent increase in pain has caused him to be more sedentary than usual. However he has started getting "Injections" in his back which he notes have helped with the pain allowing him start PT last week. Pt denies hx of previous PEs, DVTs, HTN, or heart dz besides Afib. Source: patient, RN/MD Exam Limitations: no limitations Date Seen 02/20/19 Time Seen by a Provider: 15:32 Attending Physician Nohemi Colunga MD PCP Jese Wing MD Referring Physician Date of Admission Feb 20, 2019 at 10:57 Home Medications & Allergies Home Medications Reviewed patient Home Medication Reconciliation performed by pharmacy medication reconciliations electric meter technician and/or nursing. Patients Allergies have been reviewed. Allergies Allergies Coded Allergies Penicillins (Verified Allergy, Severe, Anaphylaxis (pt tolerates Ceftriaxone), 04/19/17) iodine (Verified Allergy, Unknown, 09/01/06) Uncoded Allergies SURGICAL GLUE ( Allergy, Severe, "TOOK OFF SKIN", 06/04/17) Past Mgylqjy-Uwpojf-Wzqazy Hx Past Med/Social Hx: Reviewed Nursing Past Med/Soc Hx Patient Social History Marrital Status: Employed/Student: retired Alcohol Use: Denies Use Recreational Drug Use: No Smoking Status: Never a Smoker 2nd Hand Smoke Exposure: No Recent Foreign Travel: No Contact w/other who traveled: No Recent Hopitalizations: Yes Recent Infectious Disease Expo: No Immunizations Up To Date Pediatric: No Date of Pneumonia Vaccine: May 02, 2013 Date of Influenza Vaccine: Jan 30, 2017 Seasonal Allergies Seasonal Allergies: No Past Medical History Surgeries: Orthopedic, Renal Cardiac: Atrial Fibrillation (paroxysmal), High Cholesterol, Hypertension Neurological: Neuropathy Reproductive: Yes Genitourinary: Benign Prostatic Hyperpl, Bladder Infection, Kidney Stones Gastrointestinal: Gastroesophageal Reflux, Esophagitis, Hiatal Hernia, Ulcer Musculoskeletal: Arthritis, Chronic Back Pain Cancer: Skin History of Blood Disorders: No Family History Patient reports no known family medical history. No Pertinent Family Hx Review of Systems Constitutional: No chills, No diaphoresis, No fever, No malaise Respiratory: No cough; dyspnea on exertion; No hemoptysis; short of breath; No stridor, No wheezing Cardiovascular: No chest pain, No edema Gastrointestinal: No abdominal pain, No constipation, No diarrhea, No nausea, No vomiting Genitourinary: No dysuria, No frequency Musculoskeletal: back pain (chronic LBP) Skin: No dryness, No pruritus, No rash Psychiatric/Neurological: Denies Anxiety, Denies Depressed Physical Exam Physical Exam Vital Signs Vital Signs - First Documented 02/20/19 08:24 Temp 36.7 Pulse 71 Resp 18 B/P (MAP) 145/76 (99) Pulse Ox 92 O2 Delivery Room Air O2 Flow Rate 2.00 FiO2 92 Capillary Refill : Less Than 3 Seconds Height, Weight, BMI Height: 5'8.00" Weight: 176lbs. 5.0oz. [id number]; 27.25 BMI Method:Stated General Appearance: No Apparent Distress, WD/WN Eyes: Bilateral Eye Normal Inspection, Bilateral Eye PERRL HEENT: PERRL/EOMI Neck: Normal Inspection, Supple; No Carotid Bruit Respiratory: Chest Non Tender, Lungs Clear, Normal Breath Sounds, No Accessory Muscle Use, No Respiratory Distress Cardiovascular: Regular Rate, Rhythm, No Edema, No Gallop, No JVD, No Murmur, Normal Peripheral Pulses Gastrointestinal: Normal Bowel Sounds, No Organomegaly, No Pulsatile Mass, Non Tender, Soft Back: No CVA Tenderness, No Vertebral Tenderness Extremity: Normal Capillary Refill, Normal Inspection, Non Tender, No Calf Tenderness, No Pedal Edema Neurologic/Psychiatric: Alert, Oriented x3, Normal Mood/Affect Skin: Normal Color, Warm/Dry Lymphatic: No Adenopathy Results Results/Procedures Labs Laboratory Tests 02/20/19 09:16 Patient resulted labs reviewed. Assessment/Plan Admission Diagnosis Assessment and Plan LLE DVT, Suspected PE -Elevated D-Dimer -V/Q scan Consistent with high probability for PE -Venous Doppler study showed Left lower extremity DVT but Right lower extremity venous system was unremarkable -CXR was negative for acute pulmonary aneurysm -Troponin was elevated @ 0.21 -Dr. Allie scott/ Cardiology was consulted, appreciate recommendations -Enoxaparin 90/daily Acute kidney injury -Elevated BUN & Cr -keep on IVF Hx of Paroxysmal Afib -Continue home med: Dronedarone Chronic back pain -Recent exacerbation of pain lead to predominantly sedentary life style -PT/OT to evaluate pt Dyslipidemia -Continue on home med: Fenofibrate Copy Copies To 1: JESE WING MD, KATELYN M MD 02/21/19 1455: Past Xexkydb-Qgdcch-Gmikcu Hx Family History Patient reports no known family medical history. Assessment/Plan Admission Diagnosis Acute PE Admission Status: Observation Copy Copies To 1: JESE WING MD Supervisory-Addendum Brief Verification & Attestation Participated in pt care: history, MDM, physical Personally performed: exam, history, MDM, supervision of care Care discussed with: Medical Student Procedures: n/a Results interpretation: Verified all documentation Verification and Attestation of Medical Student E/M Service A medical student performed and documented this service in my presence. I reviewed and verified all information documented by the medical student and made modifications to such information, when appropriate. I personally performed the physical exam and medical decision making. Nohemi Colunga, Feb 21, 2019,14:53 PADMINI JONES [facility] Feb 20, 2019 15:41 NOHEMI COLUNGA MD Feb 21, 2019 14:55
--- NOTE | 2019-02-20 15:48 | Diagnostic Imaging Report ---
INDICATION: Shortness of breath. TECHNIQUE: The patient was administered 42.1 mCi of technetium 99M DTPA to the nebulizer and imaging over the chest was performed in multiple obliquities. Next, the patient was administered 5.3 mCi of technetium 99m MAA intravenously and imaging over the chest was performed in multiple obliquities. FINDINGS: The ventilation portion of the study demonstrates fairly homogeneous ventilation to both lungs. No ventilation defects are seen. The perfusion portion of the study does show multiple moderate sized perfusion defects involving the bilateral lungs. The left lung demonstrates a moderate to large defect in the anterior mid aspect. There are also pleural-based perfusion defects in the right upper lobe as well as the right lower lobe which are moderate to large in size. IMPRESSION: Findings are consistent with a high probability for pulmonary embolism. Dictated by: Dictated on workstation # [id number]
--- NOTE | 2019-02-20 16:02 | Physical Therapy Progress Note ---
Therapy Progress Note Patient declined PT this p.m. PT will attempt in ISABELLA Cope PT Feb 20, 2019 16:02
[2019-02-20 16:05] VITALS: BP 134/67
[2019-02-20 20:00] VITALS: BP 118/66
[2019-02-20] MEDS: DRONEDARONE TABLET 400 MG TABLET PO SCH (20:01)
[2019-02-20] MEDS: FENOFIBRATE 134 MG (LOFIBRA) CAPSULE PO SCH (20:01)
[2019-02-20] MEDS: CELECOXIB 100 MG (CeleBREX) CAP PO SCH (20:01)
[2019-02-20] MEDS: ACETAMINOPHEN 325 MG TABLET PO SCH (20:02)
[2019-02-20] MEDS ORDERED: NON-FORMULARY MEDICATION 1 EA EA (Fenofibrate 160 MG) PO SCH (21:00)
[2019-02-20] MEDS ORDERED: NON-FORMULARY MEDICATION 1 EA EA (Celecoxib 200 MG) PO SCH (21:00)
[2019-02-20] MEDS ORDERED: NON-FORMULARY MEDICATION 1 EA EA (Acetaminophen (Tylenol Arthritis) 650 MG) PO SCH (21:00)
[2019-02-21] VITALS (7 sets, daily range): BP systolic 95–139; BP diastolic 59–99
[2019-02-21] MEDS: NS IV 1000 ML 1,000 ML IV SCH ×2 (04:57→17:31)
[2019-02-21] MEDS: CELECOXIB 100 MG (CeleBREX) CAP PO SCH ×2 (04:58→17:30)
[2019-02-21 06:41] LABS: BASOPHILS % (AUTO) 0 % (0-10); EOSINOPHILS # (AUTO) 0.1 10^3/uL (0.0-0.3); EOSINOPHILS % (AUTO) 1 % (0-10); HEMATOCRIT 39 % (40-54); HEMOGLOBIN 12.4 G/DL (13.3-17.7); LYMPHOCYTES # (AUTO) 0.8 X 10^3 (1.0-4.0); LYMPHOCYTES % (AUTO) 9 % (12-44); MEAN CORPUSCULAR HEMOGLOBIN 32 PG (25-34); MEAN CORPUSCULAR HGB CONC 32 G/DL (32-36); MEAN CORPUSCULAR VOLUME 101 FL (80-99); MONOCYTES # (AUTO) 1.4 X 10^3 (0.0-1.0); MONOCYTES % (AUTO) 17 % (0-12); NEUTROPHILS # (AUTO) 6.1 X 10^3 (1.8-7.8); NEUTROPHILS % (AUTO) 73 % (42-75); PLATELET COUNT 149 10^3/uL (130-400); RED CELL DISTRIBUTION WIDTH 14.9 % (10.0-14.5); WHITE BLOOD COUNT 8.3 10^3/uL (4.3-11.0)
[2019-02-21 06:59] LABS: ALBUMIN 3.9 GM/DL (3.2-4.5); BILIRUBIN,TOTAL 0.5 MG/DL (0.1-1.0); CALCIUM 8.7 MG/DL (8.5-10.1); CREATININE SERUM 1.74 MG/DL (0.60-1.30); POTASSIUM 4.7 MMOL/L (3.6-5.0); TOTAL PROTEIN 6.5 GM/DL (6.4-8.2)
[2019-02-21] MEDS: ACETAMINOPHEN 325 MG TABLET PO SCH ×2 (08:31→20:17)
--- NOTE | 2019-02-21 08:35 | Diagnostic Imaging Report ---
INDICATION: Shortness of air. TIME OF EXAMINATION: 2:29 AM. COMPARISON: Correlation is made with the prior chest of one day earlier. FINDINGS: The heart size is stable. A monitoring device overlies the lower left chest. The lungs are clear. No infiltrates are seen. There is no effusion or pneumothorax. Postop changes of reverse shoulder arthroplasty on the left are noted. IMPRESSION: No acute cardiopulmonary process is detected. Dictated by: Dictated on workstation # [id number]
[2019-02-21] MEDS: DRONEDARONE TABLET 400 MG TABLET PO SCH ×2 (08:50→20:17)
[2019-02-21] MEDS ORDERED: ASPIRIN E.C. 81 MG (ECOTRIN) TAB PO SCH (09:00)
[2019-02-21] MEDS ORDERED: ENOXAPARIN 100 MG/1 ML (LOVENOX) SYR SC SCH (09:00)
--- NOTE | 2019-02-21 09:10 | Physical Therapy Evaluation ---
PT Evaluation-General Medical Diagnosis Admission Date Feb 20, 2019 at 10:57 Medical Diagnosis: SOA Onset Date: Feb 20, 2019 Therapy Diagnosis Therapy Diagnosis: SOB, decreased endurance Height/Weight Height (Feet): 5 Height (Inches): 8.00 Weight (Pounds): 176 Weight (Ounces): 5.0 Precautions Precautions/Isolations: Standard Precautions Weight Bear Status Right Lower Extremity: Right Weight Bearing/Tolerated Left Lower Extremity: Left Weight Bearing/Tolerated Referral Physician: Cristine Reason for Referral: Evaluation/Treatment, Strengthening Medical History Pertinent Medical History: Atrial Fib, Arthritis, GERD, HTN, Neuropathy, Renal Insufficiency Additional Medical History Past Medical History Surgeries: Orthopedic, Renal Cardiac: Atrial Fibrillation (paroxysmal), High Cholesterol, Hypertension Neurological: Neuropathy Reproductive: Yes Genitourinary: Benign Prostatic Hyperpl, Bladder Infection, Kidney Stones Gastrointestinal: Gastroesophageal Reflux, Esophagitis, Hiatal Hernia, Ulcer Musculoskeletal: Arthritis, Chronic Back Pain Cancer: Skin History of Blood Disorders: No Reviewed History: Yes Social History Home: Multilevel (All rooms are on 1 level except for pt's basement which is a full flight of stairs to get down into his office.) Current Living Status: Spouse (Pt's spouse has lost short term memory) Entry Into Home: Stairs With Railing PT Steps Into Home: 2 PT Steps Inside Home: 12 (B/L rails to get into basement office) 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 Pt's spouse has nurse help that comes in 4x/week Prior Prior Level of Function SCALE: Activities may be completed with or without assistive devices. 8-Hwfwcqrtwe-dhycacb completes the activity by him/herself with no assistance from a helper. 5-Set-up or Clean-up Assistance-helper sets up or cleans up; patient completes activity. [place] assists only prior to or following the activity. 4-Supervision or Touching Assistance-helper provides verbal cues and/or touchin g/steadying and/or contact guard assistance as patient completes activity. Assistance may be provided throughout the activity or intermittently. 3-Partial/Moderate Assistance-helper does LESS THAN HALF the effort. [place] lifts, holds or supports trunk or limbs, but provides less than half the effort. 2-Substantial/Maximal Assistance-helper does MORE THAN HALF the effort. [place] lifts or holds trunk or limbs and provides more than half the effort. 7-Kodvndycp-wxbqpg does ALL the effort. Patient does none of the effort to complete the activity. Or, the assistance of 2 or more helpers is required for the patient to complete the activity. If activity was not attempted, code reason: 7-Patient Refused. 9-Not Applicable-not attempted and the patient did not perform the activity before the current illness, exacerbation or injury. 10-Not Attempted due to Environmental Limitations-(lack of equipment, weather restraints, etc.). 88-Not Attempted due to Medical Conditions or Safety Concerns. Bed Mobility: 6 Transfers (B,C,W/C): 6 Gait: 6 Stairs: 6 Indoor Mobility (Ambulation): Independent Stairs: Independent Prior Devices Use: Walker Pt has FWW and 4 wheel walker at home. Pt reports he has used the 4 wheel walker that he has used for walking long distances outside of the home since his back surgery. PT Evaluation-Current Subjective Pt in bed pre-tx and just finished breakfast. Pt reports no pain today and no SOB at rest. Pt agrees to PT today. Pt/Family Goals Pt in recliner with feet down post-tx with RN present. Pt has call light, room phone, and tray table in reach with all needs met at this time. Objective Patient Orientation: Person, Place, Situation Attachments: Oxygen (2L), Other-See Comments, IV portable tele ROM/Strength Strength Lower Extremities 4-/5 R hip flexion 4+/5 L hip flexion 4+/5 B/L knee flexion 4+/5 B/L knee extension Sensory Vision: Wears Glasses Hearing: Functional Sensation Right Lower Extremit: Intact Sensation Left Lower Extremity: Intact Transfers Roll Left to Right (QC): 6 Lying to Sitting/Side of Bed(Q: 6 Sit to Stand (QC): 6 Gait Does the Patient Walk?: Yes Mode of Locomotion: Walk Anticipated Mode of Locomotion: Walk Distance (FIM): 9=580-46 ft Walk 10 feet (QC): 4 (SBA) Walk 50 ft with 2 Turns(QC): 4 (SBA) Walk 150 ft (QC): 88 (SOB) Distance: 100' with 1 standing rest break Gait Assistive Device: FWW Comments/Gait Description Pt walks with slight genu varum with flat foot contact and slight B/L foot supination. Pt ambulates with a quick short choppy step through pattern. Wheelchair Training Does the Pt Use a Wheelchair?: No Balance Sitting Static: Normal Sitting Dynamic: Normal Standing Static: Normal Standing Dynamic: Normal Special Test Comments Pt stood without FWW and was able to bend over to pull up pants and fix his gown with no LOB. Treatment Pt performed LE exercises, skilled ambulation training, transfer training, bed mobility, and education this date. LE ex: seated ankle pumps, LAQ, and seated marching 1 set each of 15 reps. Assessment/Needs Pt had no SOB at rest and was able to walk with only 1 short standing break for PLB with SOB 2/10 at worst. Rehab Potential: Fair PT Crane Ladle Person Goals Crane Ladle Person Goals PT Crane Ladle Person Goals Time Frame: Feb 28, 2019 Sit to Lying (QC): 6 Lying-Sitting on Side/Bed(QC): 6 Sit to Stand (QC): 6 Roll Left to Right (QC): 6 Chair/Hgb-cm-Ucwyb Xfer(QC): 6 Walk 10 feet (QC): 5 Walk 50ft with 2 Turns (QC): 5 Walk 150 ft (QC): 4 (SBA) Gait Assistive Device: FWW Does the Pt use WC or Scooter?: No PT Plan Problem List Problem List: Activity Tolerance, Functional Strength, Safety, Gait, Transfer, Bed Mobility Treatment/Plan Treatment Plan: Continue Plan of Care Treatment Plan: Bed Mobility, Education, Functional Activity Rudolph, Functional Strength, Gait, Safety, Therapeutic Exercise, Transfers Treatment Duration: Feb 28, 2019 Frequency: 6 times per week Estimated Hrs Per Day: .25 hour per day Patient and/or Family Agrees t: Yes Pt goal is to get back home to care for his Safety Risks/Education Patient Education: Gait Training, Transfer Techniques, Correct Positioning, Safety Issues Teaching Recipient: Patient Teaching Methods: Demonstration, Discussion Response to Teaching: Return Demonstration, Reinforcement Needed Discharge Recommendations Plan Patient will perform bed mobility and transfer training, balance and endurance training, functional strengthening, stair training, gait training, and education, to improve functional mobility and independence at home. Therapy Discharge Recommendati: Scheduled Assistance, Homemaker Support, Other, See Comments (home with family) Equpiment Recommendations-D/C: Front Wheeled Walker, Oxygen Time/GCodes Time In: 828 Time Out: 850 Total Billed Treatment Time: 22 Total Billed Treatment 1 visit EVM 22' ABDULAZIZ MIRZA PT Feb 21, 2019 09:10
--- NOTE | 2019-02-21 09:49 | Cardiology Progress Note ---
Subjective Date Seen by Provider: Feb 21, 2019 Time Seen by Provider: 08:50 Subjective/Events-last exam Patient sitting up in bed, states dyspnea improving. Denies any chest pain. Review of Systems General: No Chills, No Night Sweats, No Fatigue, No Malaise, No Appetite, No Other HEENT: No Head Aches, No Visual Changes, No Eye Pain, No Ear Pain, No Dysphasia, No Sinus Congestion, No Post Nasal Drip, No Sore Throat, No Other Pulmonary: No Dyspnea, No Cough, No Pleuritic Chest Pain, No Other Cardiovascular: No: Chest Pain, Palpitations, Orthopnea, Paroxysmal Noc. Dyspnea, Edema, Lt Headedness, Other Objective-Cardiology Exam Last Set of Vital Signs Vital Signs 02/20/19 02/21/19 02/21/19 08:24 12:00 13:00 Temp 36.6 Pulse 77 Resp 18 B/P (MAP) 108/64 (79) Pulse Ox 95 O2 Delivery Nasal Cannula O2 Flow Rate 2.00 FiO2 92 Capillary Refill : Less Than 3 Seconds I&O Intake and Output 02/21/19 00:00 Intake Total 890 ml Output Total 800 ml Balance 90 ml Intake Oral 890 ml Output Urine Total 800 ml # Voids 2 # Bowel Movements 1 Daily Weight Change No No General: Alert, Oriented X3, Cooperative HEENT: Atraumatic, PERRLA Neck: Supple, No JVD, No Thyromegaly Lungs: Clear to Auscultation, Normal Air Movement Heart: Regular Rate, Normal S1, Normal S2, No Murmurs Abdomen: Normal Bowel Sounds, Soft, No Tenderness, No Hepatosplenomegaly, No Masses Extremities: No Clubbing, No Cyanosis, Normal Pulses, Other (LLE edema) Skin: No Rashes, No Significant Lesion Neuro: Normal Gait, Normal Speech Psych/Mental Status: Mental Status NL, Mood NL Results Lab Laboratory Tests 02/21/19 06:00 A/P-Cardiology Admission Diagnosis Deep venous thrombosis Shortness of breath Paroxysmal atrial fibrillation Back pain Assessment/Plan Acute shortness of breath, pulmonary embolism, had elevated d-dimer, venous Doppler study established left DVT, VQ scan suspicious for PE. Started on Lovenox therapeutic dose, will need to be on oral anticoagulation Acute renal insufficiency, started on IV fluid, renal function improving, continue to monitor. Paroxysmal atrial fibrillation, had a reveal, monitoring showed improvement since he started on Multaq on June 22, 2017, no further episodes were reported. Currently off Eliquis secondary to recurrent conjunctival bleed of the eye, maintained on aspirin. Back pain, status post multiple injection, had epidural injection about 10 days ago. Continue to monitor for any signs of bleeding [id number] score is 3, yearly risk of stroke without oral anticoagulation is 3.2 percent. History of recurrent conjunctival bleed while on Eliquis, he will need to be back on oral anticoagulation due to the DVT and atrial fibrillation Conjunctival bleed on the right, improved at this time. Continue to monitor Palpitations, PVCs-maintained on Toprol-XL 25 mg daily. Unable to increased dose secondary to underlying borderline hypotension and bradycardia Stress test showed extracardiac attenuation with mild ischemia at the inferior wall and inferolateral wall, stress score is 4, SDS is 2, patient is asymptomatic. Medical therapy is recommended no intervention is warranted. Echocardiogram done on July 05, 2018 showing normal left ventricular size with ejection fraction 55-65 percent, grade 2 diastolic dysfunction, mild MR, aortic valve sclerosis, PA 35 mmHg. Continue to monitor Mild bilateral carotid stenosis, nonobstructive disease, last ultrasound was done in May 2018, continue to monitor Lower extremities cramps in pain usually with exertion relieved by rest, reporting improvement, YOSEF was done in January 2017 and it was normal, venous Doppler showed DVT Hyperlipidemia, maintained on fenofibrate, last lipid profile was done on May 25, 2018 showing total cholesterol 189, HDL 53, triglyceride 196, LDL 97. Continue on current medication no changes are recommended, monitor lipids Kidney stone, urinary tract infection, had nephrostomy tube and stent, tube was removed on June 07, 2017, reporting improvement History of multiple surgeries in the past including tonsils, appendix, TURP, rotator cuff on both sides, kidney stones, EGD. Back surgery. Patient was seen and evaluated with Laura, examination performed, management plan was discussed, agree with the current scribed note, I made few changes to the note using Italic font I had a discussion with the patient and with Dr. Mary regarding the management plan, we will start Xarelto and monitor tolerance and response Discontinue aspirin at this point Continue to monitor Clinical Quality Measures DVT/VTE Risk/Contraindication: Risk Factor Score Per Nursin RFS Level Per Nursing on Admit: 4+=Very High Supervisory-Addendum Brief Supervisory Addendum Participated in pt care: history, MDM, physical Personally performed: exam, history, MDM Care discussed with: LAURA BENTLEY Feb 21, 2019 9:49 am DYLON HERNANDEZ MD Feb 21, 2019 3:49 pm
--- NOTE | 2019-02-21 11:44 | Progress Note - Hospitalist ---
Subjective HPI/CC On Admission Date Seen by Provider: Feb 21, 2019 Time Seen by Provider: 10:00 pt is a 89 y.o white male w/ PMH of paroxysmal Afib, dyslipidemia, and chronic back pain who presented to the ED with progressively worsening SOB since 02/17/19. Pt denies any accompanying chest pains, palpitations, dizziness, JOSE, cough, Fevers, chills, N/V, or any neurological sx. States SOB exacerbates with exertion. He also reports a few episodes of CP which he describes as "twinges" last week, which have resolved since then. Pt has hx of chronic back pain and recent increase in pain has caused him to be more sedentary than usual. However he has started getting "Injections" in his back which he notes have helped with the pain allowing him start PT last week. Pt denies hx of previous PEs, DVTs, HTN, or heart dz besides Afib. Subjective/Events-last exam Pt reports feeling better. No complaints. Breathing is improving. Was able to ambulate with PT. Objective Exam Vital Signs Vital Signs Date Time Temp Pulse Resp B/P (MAP) Pulse Ox O2 Delivery O2 Flow Rate FiO2 02/21/19 13:00 77 02/21/19 12:00 36.6 18 108/64 (79) 95 Nasal Cannula 2.00 02/20/19 08:24 92 Capillary Refill : Less Than 3 Seconds General Appearance: No Apparent Distress, WD/WN Respiratory: Lungs Clear, No Respiratory Distress Cardiovascular: Regular Rate, Rhythm, No Murmur Extremity: No Calf Tenderness, No Pedal Edema Neurologic/Psychiatric: Alert, Oriented x3, Normal Mood/Affect Results/Procedures Lab Laboratory Tests 02/21/19 06:00 Patient resulted labs reviewed. Assessment/Plan Assessment and Plan Assess & Plan/Chief Complaint Acute PE Lower Extremity DVT -Elevated D-Dimer -V/Q scan Consistent with high probability for PE -Venous Doppler study showed Left lower extremity DVT but Right lower extremity venous system was unremarkable -Dr. Kelley w/ Cardiology was consulted, appreciate recommendations -Lovenox- discussed with Dr Kelley and will start on Xarelto -Ambulatory Oxygen Acute kidney injury -Improving, continue IVF Hx of Paroxysmal Afib -Continue home med: Dronedarone - Not on anticoagulation previously due to conjunctival bleed Chronic back pain -PT/OT Dyslipidemia -Continue on home med: Fenofibrate Diagnosis/Problems Diagnosis/Problems (1) Pulmonary emboli Qualifiers: Pulmonary embolism type: unspecified Chronicity: acute Acute cor pulmonale presence: without acute cor pulmonale Qualified Codes: I26.99 - Other pulmonary embolism without acute cor pulmonale (2) DVT (deep venous thrombosis) Status: Acute Qualifiers: DVT location: lower extremity Affected thrombotic vein of extremity: unspecified vein of extremity Chronicity: acute Laterality: left Qualified Codes: I82.402 - Acute embolism and thrombosis of unspecified deep veins of left lower extremity (3) Elevated d-dimer Status: Acute (4) Essential (primary) hypertension Status: Chronic (5) CKD (chronic kidney disease) stage 3, GFR 30-59 ml/min Status: Chronic (6) Atrial fibrillation Status: Acute Qualifiers: Atrial fibrillation type: paroxysmal Qualified Codes: I48.0 - Paroxysmal atrial fibrillation Clinical Quality Measures DVT/VTE Risk/Contraindication: Risk Factor Score Per Nursin RFS Level Per Nursing on Admit: 4+=Very High Copy Copies To 1: ILIANA WING MD, KATELYN M MD Feb 21, 2019 11:44
[2019-02-21] MEDS ORDERED: FLU QUADRIvalent (5+ YOA) 2019-2020 (AFLURIA) 0.5 ML IM ONE (12:00)
[2019-02-21] MEDS ORDERED: NON-FORMULARY MEDICATION 1 EA EA (Magnesium Oxide (Magnesium) 400 MG) PO SCH (12:00)
[2019-02-21] MEDS ORDERED: NON-FORMULARY MEDICATION 1 EA EA (Folic Acid 0.4 MG) PO SCH (12:00)
[2019-02-21] MEDS: FOLIC ACID 1 MG TAB PO SCH (12:11)
[2019-02-21] MEDS: MAGNESIUM OXIDE (MAG-OX)400 MG TAB PO SCH (12:11)
--- NOTE | 2019-02-21 13:50 | Occupational Therapy Eval ---
OT Evaluation-General/PLF Medical Diagnosis Admission Date Feb 20, 2019 at 10:57 Medical Diagnosis: SOA Onset Date: Feb 20, 2019 Therapy Diagnosis Therapy Diagnosis: debility Height/Weight Height (Feet): 5 Height (Inches): 8.00 Weight (Pounds): 176 Weight (Ounces): 5.0 Precautions Precautions/Isolations: Standard Precautions Safety Interventions: None Referral Physician: Cristine Medical History Pertinent Medical History: Atrial Fib, Arthritis, GERD, HTN, Neuropathy, Renal Insufficiency Additional Medical History chronic back pain, high cholesterol, BPH, kidney stones, esophagitis, hiatal hernia, Social History Home: Multilevel (All rooms are on 1 level except for pt's basement which is a full flight of stairs to get down into his office.) Current Living Status: Spouse (Pt's spouse has lost short term memory) Entry Into Home: Stairs With Railing Steps Into Home: 2 Steps Inside Home: 12 (B/L rails to get into basement office) ADL-Prior Level of Function SCALE: Activities may be completed with or without assistive devices. 3-Uczmbeavnc-oaflhte completes the activity by him/herself with no assistance from a helper. 5-Set-up or Clean-up Assistance-helper sets up or cleans up; patient completes activity. Thompson assists only prior to or following the activity. 4-Supervision or Touching Assistance-helper provides verbal cues and/or touching/steadying and/or contact guard assistance as patient completes activity. Assistance may be provided throughout the activity or intermittently. 3-Partial/Moderate Assistance-helper does LESS THAN HALF the effort. Thompson lifts, holds or supports trunk or limbs, but provides less than half the effort. 2-Substantial/Maximal Assistance-helper does MORE THAN HALF the effort. Thompson lifts or holds trunk or limbs and provides more than half the effort. 0-Fjiyuancz-plhscx does ALL the effort. Patient does none of the effort to complete the activity. Or, the assistance of 2 or more helpers is required for the patient to complete the activity. If activity was not attempted, code reason: 7-Patient Refused. 9-Not Applicable-not attempted and the patient did not perform the activity before the current illness, exacerbation or injury. 10-Not Attempted due to Environmental Limitations-(lack of equipment, weather restraints, etc.). 88-Not Attempted due to Medical Conditions or Safety Concerns. ADL PLOF Comments Pt reports being independent with self care and mobility prior to admission. Pt reports using walker for longer distances. 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 Self Care: Independent Functional Cognition: Independent DME/Equipment: Bath Chair, Grab Bars Drive Self: Yes OT Current Status Subjective Pt sitting in chair, agrees to therapy. No reports of pain. Pt states he is feeling better today. Mental Status/Objective Patient Orientation: Person, Place, Situation Attachments: IV, Oxygen Current Glasses/Contacts: Yes Hand Dominance: Left Upper Extremity ROM Grossly WFL Upper Extremity Coordination Intact ADL-Treatment ADL-Current Pt participated in UE assessment while seated. Pt reports feeding himself without difficulty. Pt demonstrated ability to doff/don socks without assist. Sit to stand with modified independence. Pt has good standing balance. Pt sitting in chair with needs met after session. Eating (QC): 6 (by report) On/Off Footwear (QC): 6 Education OT Patient Education: Rehab process Teaching Recipient: Patient Teaching Methods: Discussion Response to Teaching: Verbalize Understanding OT Short Term Goals Short Term Goals 1=Demonstrate adherence to instructed precautions during ADL tasks. 2=Patient will verbalize/demonstrate understanding of assistive de vices/modifications for ADL. 3=Patient will improve strength/tolerance for activity to enable patient to perform ADL's. OT Yardage Control Operator Forming Goals Senior Care Goals Time Frame: Feb 28, 2019 Shower/Bathe Self (QC): 6 Upper Body Dressing (QC): 6 Lower Body Dressing (QC): 6 Toilet/Commode Transfer (QC): 6 Additional Goals: 1-Demonstrate ADL Tasks, 2-Verbalize Understanding, 3- ImproveStrength/Rudolph 1=Demonstrate adherence to instructed precautions during ADL tasks. 2=Patient will verbalize/demonstrate understanding of assistive devices/modifications for ADL. 3=Patient will improve strength/tolerance for activity to enable patient to perform ADL's. OT Education/Plan Problem List/Assessment Assessment: Decreased Activ Tolerance, Impaired Self-Care Skills Pt to benefit from skilled OT intervention while hospitalized to increase level of independence and activity tolerance to increase safety for return home. Discharge Recommendations Plan/Recommendations: Continue POC Treatment Plan/Plan of Care Treatment,Training & Education: Yes Patient would benefit from OT for education, treatment and training to promote independence in ADL's, mobility, safety and/or upper extremity function for ADL's. Plan of Care: ADL Retraining, Functional Mobility, UE Funct Exercise/Act Treatment Duration: Feb 28, 2019 Frequency: 5 times per week Estimated Hrs Per Day: .25 hour per day Rehab Potential: Good Time/GCodes Start Time: 13:26 Stop Time: 13:41 Total Time Billed (hr/min): 15 Billed Treatment Time 1 visit, EMI(15minutes) NIYA BELTRAN OT Feb 21, 2019 13:50
--- NOTE | 2019-02-21 15:51 | NUR ---
Pastoral care visit.
[2019-02-21] MEDS: RIVAROXABAN 15 MG TABLET (XARELTO) PO SCH (18:52)
[2019-02-21] MEDS: FENOFIBRATE 134 MG (LOFIBRA) CAPSULE PO SCH (20:17)
[2019-02-22] MEDS: NS IV 1000 ML 1,000 ML IV SCH (00:24)
[2019-02-22 03:50] VITALS: BP 136/66
[2019-02-22] MEDS: CELECOXIB 100 MG (CeleBREX) CAP PO SCH (05:30)
[2019-02-22] MEDS: RIVAROXABAN 15 MG TABLET (XARELTO) PO SCH (06:27)
[2019-02-22 08:00] VITALS: BP 129/73
--- NOTE | 2019-02-22 08:20 | NUR ---
RT notified of home O2 order
--- NOTE | 2019-02-22 08:34 | Cardiology Progress Note ---
Subjective Date Seen by Provider: Feb 22, 2019 Time Seen by Provider: 08:32 Subjective/Events-last exam Patient sitting up in bed, having active nose bleed, small amount of blood. Denies any chest pain or dyspnea. Objective-Cardiology Exam Last Set of Vital Signs Vital Signs 02/20/19 02/22/19 02/22/19 08:24 03:50 07:00 Temp 36.4 Pulse 59 Resp 20 B/P (MAP) 136/66 (89) Pulse Ox 93 O2 Delivery Nasal Cannula O2 Flow Rate 2.00 FiO2 92 Capillary Refill : Less Than 3 Seconds I&O Intake and Output 02/22/19 00:00 Intake Total 1940 ml Output Total 1500 ml Balance 440 ml Intake Oral 1940 ml Output Urine Total 1500 ml # Voids 4 # Bowel Movements 5 # Emeses 2 General: Alert, Oriented X3, Cooperative HEENT: Atraumatic, PERRLA Neck: Supple, No JVD, No Thyromegaly Lungs: Clear to Auscultation, Normal Air Movement Heart: Regular Rate, Normal S1, Normal S2, No Murmurs Abdomen: Normal Bowel Sounds, Soft, No Tenderness, No Hepatosplenomegaly, No Masses Extremities: No Clubbing, No Cyanosis, Normal Pulses, Other (LLE edema) Skin: No Rashes, No Significant Lesion Neuro: Normal Gait, Normal Speech Psych/Mental Status: Mental Status NL, Mood NL A/P-Cardiology Admission Diagnosis Deep venous thrombosis Shortness of breath Paroxysmal atrial fibrillation Back pain Assessment/Plan Acute shortness of breath, pulmonary embolism, had elevated d-dimer, venous Doppler study established left DVT, VQ scan suspicious for PE. Started on Xarelto. Acute renal insufficiency, started on IV fluid, renal function improving, continue to monitor. Paroxysmal atrial fibrillation, had a reveal, monitoring showed improvement since he started on Multaq on June 22, 2017, no further episodes were reported. 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 Back pain, status post multiple injection, had epidural injection about 2 weeks ago. Continue to monitor for any signs of bleeding [id number] score is 3, yearly risk of stroke without oral anticoagulation is 3.2 percent. History of recurrent conjunctival bleed while on Eliquis, started back on oral anticoagulation due to the DVT and atrial fibrillation. Currently on Xarelto Conjunctival bleed on the right, improved at this time. Continue to monitor Palpitations, PVCs-maintained on Toprol-XL 25 mg daily. Unable to increased dose secondary to underlying borderline hypotension and bradycardia Stress test showed extracardiac attenuation with mild ischemia at the inferior wall and inferolateral wall, stress score is 4, SDS is 2, patient is asymptomatic. Medical therapy is recommended no intervention is warranted. Echocardiogram done on July 05, 2018 showing normal left ventricular size with ejection fraction 55-65 percent, grade 2 diastolic dysfunction, mild MR, aortic valve sclerosis, PA 35 mmHg. Continue to monitor Mild bilateral carotid stenosis, nonobstructive disease, last ultrasound was done in May 2018, continue to monitor Lower extremities cramps in pain usually with exertion relieved by rest, reporting improvement, YOSEF was done in January 2017 and it was normal, venous Doppler showed DVT Hyperlipidemia, maintained on fenofibrate, last lipid profile was done on May 25, 2018 showing total cholesterol 189, HDL 53, triglyceride 196, LDL 97. Continue on current medication no changes are recommended, monitor lipids Kidney stone, urinary tract infection, had nephrostomy tube and stent, tube was removed on June 07, 2017, reporting improvement History of multiple surgeries in the past including tonsils, appendix, TURP, rotator cuff on both sides, kidney stones, EGD. Back surgery. Clinical Quality Measures DVT/VTE Risk/Contraindication: Risk Factor Score Per Nursin RFS Level Per Nursing on Admit: 4+=Very High STEF GRAY Feb 22, 2019 08:34
[2019-02-22] MEDS: ACETAMINOPHEN 325 MG TABLET PO SCH (09:00)
[2019-02-22 09:40] LABS: HEMOGLOBIN 12.4 G/DL (13.3-17.7); MEAN PLATELET VOLUME 10.7 FL (7.4-10.4); WHITE BLOOD COUNT 7.6 10^3/uL (4.3-11.0)
--- NOTE | 2019-02-22 09:52 | NUR ---
HR on 2 L NC was 78, after 30 mins on RA HR was 77; HR at the start of walking was 88; 1 min HR 87 and he walked 100 ft; 2 min HR 90 and he walked another another 100 ft, 3 mins HR 89 and he walked another 100 ft, 4 mins HR 91 and he walked another 100 ft, 5 mins HR 92 and he walked another 100 ft, 6 mins HR 93 and he walked another 100 ft for a total of 600 ft. O2 Sat did not drop below 89-90%. Patient did not require any O2 at rest or on exertion
[2019-02-22] MEDS: DRONEDARONE TABLET 400 MG TABLET PO SCH (09:58)
[2019-02-22 10:03] LABS: CALCIUM 8.9 MG/DL (8.5-10.1); CREATININE SERUM 1.93 MG/DL (0.60-1.30); POTASSIUM 4.4 MMOL/L (3.6-5.0)
[2019-02-22] MEDS ORDERED: RIVA1TAB PO (10:09)
--- NOTE | 2019-02-22 10:23 | Physical Therapy Daily Note ---
PT Daily Note-Current Subjective Patient agrees to PT at this time. Reports he did not usually walk with a walker before hospitalization but will probably continue using one after discharge to relieve back pain while ambulating. Pain Numeric Pain Scale: 0-No Pain Location: No Pain Reported Mental Status Patient Orientation: Person, Place, Time, Situation Attachments: IV Transfers SCALE: Activities may be completed with or without assistive devices. 6-Djcltnjobw-dywvgat completes the activity by him/herself with no assistance from a helper. 5-Set-up or Clean-up Assistance-helper sets up or cleans up; patient completes activity. Blanchard assists only prior to or following the activity. 4-Supervision or Touching Assistance-helper provides verbal cues and/or touching/steadying and/or contact guard assistance as patient completes activity. Assistance may be provided throughout the activity or intermittently. 3-Partial/Moderate Assistance-helper does LESS THAN HALF the effort. Blanchard lifts, holds or supports trunk or limbs, but provides less than half the effort. 2-Substantial/Maximal Assistance-helper does MORE THAN HALF the effort. Blanchard lifts or holds trunk or limbs and provides more than half the effort. 9-Skiyvvxrl-htusks does ALL the effort. Patient does none of the effort to complete the activity. Or, the assistance of 2 or more helpers is required for the patient to complete the activity. If activity was not attempted, code reason: 7-Patient Refused. 9-Not Applicable-not attempted and the patient did not perform the activity before the current illness, exacerbation or injury. 10-Not Attempted due to Environmental Limitations-(lack of equipment, weather restraints, etc.). 88-Not Attempted due to Medical Conditions or Safety Concerns. Transfers (B, C, W/C): 6 Roll Left to Right (QC): 6 Sit to Stand (QC): 6 Weight Bearing Right Lower Extremity: Right Weight Bearing/Tolerated Left Lower Extremity: Left Weight Bearing/Tolerated Gait Training Does the Patient Walk?: Yes Gait: 6 Distance: 250' Walk 10 feet (QC): 6 Walk 50 ft with 2 Turns(QC): 6 Walk 150 ft (QC): 6 Gait Assistive Device: FWW Step through pattern, normal gait, quick pace, slightly kyphotic leaning on walker for support Assessment Patient able to complete bed mobility and standing independently. Ambulates with good mechanics and gait sequence with use of FWW for support. PT Mcc Goals Intelligence Specialist Goals PT Mcc Goals Time Frame: Feb 28, 2019 Sit to Lying (QC): 6 Lying-Sitting on Side/Bed(QC): 6 Sit to Stand (QC): 6 Roll Left to Right (QC): 6 Chair/Gsr-od-Hqgcn Xfer(QC): 6 Walk 10 feet (QC): 5 Walk 50ft with 2 Turns (QC): 5 Walk 150 ft (QC): 4 (SBA) Gait Assistive Device: FWW Does the Pt use WC or Scooter?: No PT Plan Treatment/Plan Treatment Plan: Discontinue PT, goals met Treatment Plan: Bed Mobility, Education, Functional Activity Rudolph, Functional Strength, Gait, Safety, Therapeutic Exercise, Transfers Treatment Duration: Feb 28, 2019 Frequency: 6 times per week Estimated Hrs Per Day: .25 hour per day Patient and/or Family Agrees t: Yes Time/GCodes Time In: 1004 Time Out: 1016 Total Billed Treatment Time: 12 Total Billed Treatment 1 visit FA 12min ISABELLA COE PT Feb 22, 2019 10:23
--- NOTE | 2019-02-22 10:23 | Discharge Inst-Simple/Standard ---
Discharge Inst-Standard Reconcile Patient Problems Problems Reviewed?: Yes Discharge Medications New, Converted or Re-Newed RX: Transmitted to Pharmacy Patient Instructions/Follow Up Plan of Care/Instructions/FU: Please continue to take your medication as written. Please follow up with Dr Tam in [address] Kelley in 2 weeks. Activity as Tolerated: Yes Discharge Diet: Cardiac Diet Return to The Hospital For: Worsening bloody nose, blood stools, coughing up blood, if you feel you are getting worse. NOHEMI REGALADO MD Feb 22, 2019 10:23
[2019-02-22 12:00] VITALS: BP 112/68
[2019-02-22] MEDS: MAGNESIUM OXIDE (MAG-OX)400 MG TAB PO SCH (12:43)
[2019-02-22] MEDS: FOLIC ACID 1 MG TAB PO SCH (12:43)
[2019-02-22 14:19] VITALS: BP 112/68
--- NOTE | 2019-02-22 14:48 | Discharge Summary ---
Diagnosis/Chief Complaint Date of Admission Feb 20, 2019 at 10:57 Date of Discharge Feb 22, 2019 at 14:12 Discharge Date: Feb 22, 2019 Admission Diagnosis Acute PE Primary Care Iliana Wing MD Discharge Diagnosis (1) Pulmonary emboli (2) DVT (deep venous thrombosis) Status: Acute (3) Elevated d-dimer Status: Acute (4) Essential (primary) hypertension Status: Chronic (5) CKD (chronic kidney disease) stage 3, GFR 30-59 ml/min Status: Chronic (6) Atrial fibrillation Status: Acute Discharge Summary Procedures/Consulations Dr Kelley- Cardiology Discharge Physical Exam Allergies: Coded Allergies: Penicillins (Verified Allergy, Severe, Anaphylaxis (pt tolerates Ceftriaxone), 04/19/17) iodine (Verified Allergy, Unknown, 09/01/06) Uncoded Allergies: SURGICAL GLUE (Allergy, Severe, "TOOK OFF SKIN", 06/04/17) Vitals & I&Os Vital Signs Date Time Temp Pulse Resp B/P (MAP) Pulse Ox O2 Delivery O2 Flow Rate FiO2 02/22/19 14:19 36.4 70 18 112/68 92 Room Air 2.00 92 General Appearance: No Apparent Distress, WD/WN Respiratory: Lungs Clear, No Respiratory Distress Cardiovascular: Regular Rate, Rhythm, No Murmur Gastrointestinal: Normal Bowel Sounds, Non Tender, Soft Neurologic/Psychiatric: Alert, Oriented x3 Hospital Course Pt was an 89yoCM who was admitted for Acute PE and LLE DVT. He had a mild BAY on his CKD and CTA was unable to be obtained so he underwent V/Q scan which was read as high probability for PE. He has a history of atrial fibrillation and a history of significant conjunctival bleed for which anticoagulation was discontinued. I discussed with him and his sons the need for anticoagulation at this time due to blood clots. He did have a small nosebleed on day of discharge but resolved on it's own. He was discharged home in stable condition to follow up with his PCP and Dr Kelley. I did call and update his PCP's office in regards to this hospital stay and new anticoagulation. Labs (last 24 hrs) Patient resulted labs reviewed. Pending Labs Discussion & Recommendations Discharge Planning: >30 minutes discharge planning Discharge Home Medications: Active Scripts Active Xarelto Starter Pack (Rivaroxaban) 1 Each Tab.ds.pk 1 Each PO UD 15mg by mouth twice daily x 21 days then 20mg by mouth daily Reported Diclofenac Sodium 100 Gm Gel..gram. TOP HS APPLY TO HANDS Multaq (Dronedarone HCl) 400 Mg Tablet 400 Mg PO BID Tylenol Arthritis (Acetaminophen) 650 Mg Tablet.er 650 Mg PO BID Vitamin B-12 (Cyanocobalamin (Vitamin B-12)) 500 Mcg Tablet 500 Mcg PO 1200 Folic Acid 0.4 Mg Tablet 0.4 Mg PO 1200 Vitamin D3 (Cholecalciferol (Vitamin D3)) 2,000 Unit Capsule 2,000 Unit PO 1200 Calcium 500 + D Tablet (Calcium Carbonate/Vitamin D3) 1 Each Tablet 1 Tab PO 1200 Magnesium (Magnesium Oxide) 400 Mg Capsule 400 Mg PO 1200 Selina-C 1,000 mg Tablet (Ascorbate Calcium/Bioflavonoid) 1 Each Tablet 1,000 Mg PO 1200 One Daily For Men 50+ Adv Tab (Mv,Minerals/FA/Lycopene/Ginkgo) 1 Each Tablet 1 Tab PO 1200 Omeprazole 20 Mg Capsule.dr 20 Mg PO DAILY PRN Metoprolol Succinate 25 Mg Tab.er.24h 25 Mg PO HS Fenofibrate 160 Mg Tablet 160 Mg PO HS Instructions to patient/family Please see electronic discharge instructions given to patient. Clinical Quality Measures DVT/VTE Risk/Contraindication: Risk Factor Score Per Nursin RFS Level Per Nursing on Admit: 4+=Very High Copy Copies To 1: ILIANA WING MD Problem Qualifiers (1) Pulmonary emboli: Pulmonary embolism type: unspecified Chronicity: acute Acute cor pulmonale presence: without acute cor pulmonale Qualified Codes: I26.99 - Other pulmonary embolism without acute cor pulmonale (2) DVT (deep venous thrombosis): DVT location: lower extremity Affected thrombotic vein of extremity: unspecified vein of extremity Chronicity: acute Laterality: left Qualified Codes: I82.402 - Acute embolism and thrombosis of unspecified deep veins of left lower extremity (3) Atrial fibrillation: Atrial fibrillation type: paroxysmal Qualified Codes: I48.0 - Paroxysmal atrial fibrillation NOHEMI REGALADO MD Feb 22, 2019 14:48
[2019-03-14] MEDS ORDERED: RIVAROXABAN 20 MG TABLET (XARELTO) PO SCH (17:00)
== END 2019-02-22 14:12 | disposition home or self-care (01) | DRG 176 ==
LOC: EDUNIT# 08:24 → ER 08:27 → 4TH 10:57
PROVIDERS: ADMIT Family Medicine; ATTEND Family Medicine
DX: I26.99 Other pulmonary embolism without acute cor pulmonale (principal); I82.412 Acute embolism and thrombosis of left femoral vein; I82.432 Acute embolism and thrombosis of left popliteal vein; N17.9 Acute kidney failure, unspecified; I12.9 Hypertensive chronic kidney disease with stage 1 through stage 4 chronic kidney disease, or unspecified chronic kidney disease; N18.3 Chronic kidney disease, stage 3 (moderate); I48.0 Paroxysmal atrial fibrillation; M54.9 Dorsalgia, unspecified; H11.31 Conjunctival hemorrhage, right eye; R00.2 Palpitations; I35.0 Nonrheumatic aortic (valve) stenosis; I65.23 Occlusion and stenosis of bilateral carotid arteries; E78.5 Hyperlipidemia, unspecified; E78.00 Pure hypercholesterolemia, unspecified; G62.9 Polyneuropathy, unspecified; N40.0 Benign prostatic hyperplasia without lower urinary tract symptoms; K21.9 Gastro-esophageal reflux disease without esophagitis; K20.9 Esophagitis, unspecified; K44.9 Diaphragmatic hernia without obstruction or gangrene; M19.91 Primary osteoarthritis, unspecified site; Z85.828 Personal history of other malignant neoplasm of skin; Z87.440 Personal history of urinary (tract) infections; Z87.442 Personal history of urinary calculi; Z88.0 Allergy status to penicillin
CPT/HCPCS: 36415; 71045; 78582; 80048; 80053; 80061; 82805; 83735; 83874; 83880; 84484; 85007; 85025; 85027; 85379; 85610; 85730; 93005; 93041; 93970; 94760; 94761

== ENCOUNTER 2019-02-26 03:33 | Inpatient (IN) | payer MEDICARE ==
[~2019-02-26] VITALS: Ht 172.7 cm; Wt 74.8 kg
[~2019-02-26 03:33] MED LIST changes: +ACET-2650 PO; +ASPI-983 PO; +CELE-63 PO; +DICL100G31 TOP; +DRON400T2 PO; +RIVA1TAB PO
--- NOTE | 2019-02-26 04:40 | NUR ---
PT AND PERSON IN ROOM WITH HIM BOTH VOICE THAT THE PT DOESN'T NEED AN IV AND DOESN'T WANT AN IV. DISCUSSED WITH PT AND MAN IN ROOM THAT ESTABLISHING AN IV ALLOWS FOR BLOOD TO BE DRAWN AND ACCESS IF IV MEDICATIONS/IVF NEED TO BE GIVEN. MAN IN ROOM STATES, "HE DOESN'T NEED IV FLUIDS. HE JUST NEEDS A BUTTERFLY TO DRAW HIS BLOOD". PT VERY ADAMANT THAT HE DOES NOT WANT AN IV. DR. RIGGS NOTIFIED AND PRESENTED TO ROOM TO DISCUSS THE PROS OF IV ACCESS WITH PT. PT THEN AGREES TO LET STAFF LOOK FOR IV.
--- NOTE | 2019-02-26 04:45 | NUR ---
DURING EVALUATION OF VEINS FOR IV START PT STATES, "I REALLY DON'T WANT AN IV. I DON'T LIKE WHEN ITS IN THE INSIDE OF THE ELBOW BECAUSE THEN YOU'LL HAVE TO STRAIGHTEN MY ARM WITH A STICK." PT POINTS TO WHERE HE WOULD PREFER TO HAVE A VEIN, NO VEINS PRESENTING WITH TOURNIQUET IN PLACE. PT CONTINUALLY STATES HOW HE DOES NOT WANT AN IV AND HOW ITS AN INCONVENIENCE TO HIM. DR. RIGGS NOTIFIED AND LAB NOTIFIED TO PERFORM LAB DRAW.
[2019-02-26 05:28] LABS: BASOPHILS % (AUTO) 0 % (0-10); EOSINOPHILS # (AUTO) 0.1 10^3/uL (0.0-0.3); EOSINOPHILS % (AUTO) 0 % (0-10); HEMATOCRIT 38 % (40-54); HEMOGLOBIN 11.9 G/DL (13.3-17.7); LYMPHOCYTES # (AUTO) 0.4 X 10^3 (1.0-4.0); LYMPHOCYTES % (AUTO) 2 % (12-44); MEAN CORPUSCULAR HEMOGLOBIN 32 PG (25-34); MEAN CORPUSCULAR HGB CONC 31 G/DL (32-36); MEAN CORPUSCULAR VOLUME 101 FL (80-99); MEAN PLATELET VOLUME 10.3 FL (7.4-10.4); MONOCYTES # (AUTO) 2.5 X 10^3 (0.0-1.0); MONOCYTES % (AUTO) 14 % (0-12); NEUTROPHILS # (AUTO) 14.8 X 10^3 (1.8-7.8); NEUTROPHILS % (AUTO) 83 % (42-75); PLATELET COUNT 222 10^3/uL (130-400); RED CELL DISTRIBUTION WIDTH 14.9 % (10.0-14.5); WHITE BLOOD COUNT 17.8 10^3/uL (4.3-11.0)
--- NOTE | 2019-02-26 05:35 | ED General ---
General Chief Complaint: Respiratory Problems Stated Complaint: SOA, CHILLS Nursing Triage Note: AMBULATORY TO ED ROOM 5 WITH C/O SOA, SHAKES. HX PE, LEFT LEG DVT WITH RECENT D/C FROM HOSPITAL 02/22/19. TAKES XARELTO. Nursing Sepsis Screen: No Definite Risk Source of Information: Patient, Old Records Exam Limitations: No Limitations (SANTIAGO RIGGS MD) History of Present Illness Date Seen by Provider: Feb 26, 2019 Time Seen by Provider: 04:00 Initial Comments This 89-year-old man presents to the emergency room with complaints of shortness of air and generalized shakes/tremors. He was recently diagnosed with DVT and pulmonary embolism for which he was admitted. He is on Xarelto. He is noted to be mildly hypoxic with oxygen saturation running in the 89-92 region and during assessment. He reports he did not qualify for oxygen therapy during a walk test during admission. He does have a concentrator at home that his used but he is not confident in setting it up for himself. He is afebrile. He denies any other symptoms. He reports his oxygen saturations at night when he wakes up are in the low 80s. (SANTIAGO RIGGS MD) Allergies and Home Medications Allergies Coded Allergies: Penicillins (Verified Allergy, Severe, Anaphylaxis (pt tolerates Ceftriaxone), 04/19/17) iodine (Verified Allergy, Unknown, 09/01/06) Uncoded Allergies: SURGICAL GLUE (Allergy, Severe, "TOOK OFF SKIN", 06/04/17) Home Medications Acetaminophen 650 Mg Tablet.er, 650 MG PO BID, (Reported) Ascorbate Calcium/Bioflavonoid 1 Each Tablet, 1,000 MG PO 1200, (Reported) Calcium Carbonate/Vitamin D3 1 Each Tablet, 1 TAB PO 1200, (Reported) Cholecalciferol (Vitamin D3) 2,000 Unit Capsule, 2,000 UNIT PO 1200, (Reported) Cyanocobalamin (Vitamin B-12) 500 Mcg Tablet, 500 MCG PO 1200, (Reported) Diclofenac Sodium 100 Gm Gel..gram., TOP HS, (Reported) APPLY TO HANDS Dronedarone HCl 400 Mg Tablet, 400 MG PO BID, (Reported) Fenofibrate 160 Mg Tablet, 160 MG PO HS, (Reported) Folic Acid 0.4 Mg Tablet, 0.4 MG PO 1200, (Reported) Magnesium Oxide 400 Mg Capsule, 400 MG PO 1200, (Reported) Metoprolol Succinate 25 Mg Tab.er.24h, 25 MG PO HS, (Reported) Mv,Minerals/FA/Lycopene/Ginkgo 1 Each Tablet, 1 TAB PO 1200, (Reported) Omeprazole 20 Mg Capsule.dr, 20 MG PO DAILY PRN for HEARTBURN, (Reported) Rivaroxaban 1 Each Tab.ds.pk, 1 EACH PO UD 15mg by mouth twice daily x 21 days then 20mg by mouth daily Prescribed by: NOHEMI REGALADO on 02/22/19 1009 Patient Home Medication List Home Medication List Reviewed: Yes (SANTIAGO RIGGS MD) Review of Systems Review of Systems Constitutional: see HPI; No fever EENTM: no symptoms reported Respiratory: see HPI Cardiovascular: see HPI Gastrointestinal: no symptoms reported Genitourinary: no symptoms reported Musculoskeletal: no symptoms reported Skin: no symptoms reported Psychiatric/Neurological: See HPI Hematologic/Lymphatic: No Symptoms Reported Immunological/Allergic: no symptoms reported (SANTIAGO RIGGS MD) Past Zeazuty-Oeicwi-Boxxha Hx Past Med/Social Hx: Reviewed Nursing Past Med/Soc Hx (SANTIAGO RIGGS MD) Patient Social History Alcohol Use: Denies Use Recreational Drug Use: No Smoking Status: Never a Smoker 2nd Hand Smoke Exposure: No Recent Foreign Travel: No Contact w/Someone Who Travel: No Recent Infectious Disease Expo: No Recent Hopitalizations: Yes (RECENT DC 02/22/19) Physical Abuse: No Sexual Abuse: No Mistreated: No Fear: No (SANTIAGO RIGGS MD) Immunizations Up To Date PED Vaccines UTD: No Date of Pneumonia Vaccine: May 02, 2013 Date of Influenza Vaccine: Feb 24, 2019 (SANTIAGO RIGGS MD) Seasonal Allergies Seasonal Allergies: No (SANTIAGO RIGGS MD) Past Medical History Surgeries: Yes Orthopedic, Renal Respiratory: Yes Pulmonary Embolism Cardiac: Yes (HEART MONITOR, SEES DR HERNANDEZ) Atrial Fibrillation, Deep Vein Thrombosis, High Cholesterol, Hypertension Neurological: Yes Neuropathy Reproductive Disorders: Yes Genitourinary: Yes Benign Prostatic Hyperpl, Bladder Infection, Kidney Stones, UTI-Chronic Gastrointestinal: Yes Gastroesophageal Reflux, Esophagitis, Hiatal Hernia, Ulcer Musculoskeletal: Yes Arthritis, Chronic Back Pain Endocrine: No HEENT: No Cancer: Yes Skin Psychosocial: No Integumentary: No Blood Disorders: No (SANTIAGO RIGGS MD) Family Medical History Patient reports no known family medical history. No Pertinent Family Hx (SANTIAGO RIGGS MD) Physical Exam Vital Signs Vital Signs - First Documented 02/26/19 02/26/19 03:38 04:15 Temp 37.1 Pulse 79 Resp 19 B/P (MAP) 147/112 (124) O2 Delivery Room Air O2 Flow Rate 2.00 (MERLINE ERICKSON MD) Vital Signs Capillary Refill : Less Than 3 Seconds (SANTIAGO RIGGS MD) Height, Weight, BMI Height: 5'8.00" Weight: 176lbs. 5.0oz. 79.221270kd; 28.00 BMI Method:Stated General Appearance: No Apparent Distress, WD/WN HEENT: PERRL/EOMI, Normal ENT Inspection Neck: Normal Inspection Respiratory: No Accessory Muscle Use, No Respiratory Distress, Crackles (bilateral bases) Cardiovascular: Regular Rate, Rhythm, No Edema, No Murmur Gastrointestinal: Non Tender, Soft Extremity: Normal Inspection, No Pedal Edema Neurologic/Psychiatric: Alert, Oriented x3, No Motor/Sensory Deficits, Normal Mood/Affect, dog behaviorist II-XII Norm as Tested Skin: Normal Color, Warm/Dry (SANTIAGO RIGGS MD) Procedures/Interventions Suture Size: 2-0 (SANTIAGO RIGGS MD) Progress/Results/Core Measures Suspected Sepsis Recent Fever Within 48 Hours: No Infection Criteria Present: Suspected New Infection New/Unexplained Altered Menta: No Sepsis Screen: No Definite Risk SIRS Temperature: Pulse: 79 Respiratory Rate: 19 Laboratory Tests 02/26/19 05:21: White Blood Count 17.8H Blood Pressure 147 /112 Mean: 124 Laboratory Tests 02/26/19 05:21: Creatinine 1.98H, Platelet Count 222, Total Bilirubin 0.6 (SANTIAGO RIGGS MD) Results/Orders Lab Results Laboratory Tests Test 02/26/19 05:21 02/26/19 05:35 Range/Units White Blood Count 17.8 H 4.3-11.0 10^3/uL Red Blood Count 3.74 L 4.35-5.85 10^6/uL Hemoglobin 11.9 L 13.3-17.7 G/DL Hematocrit 38 L 40-54 % Mean Corpuscular Volume 101 H 80-99 FL Mean Corpuscular Hemoglobin 32 25-34 PG Mean Corpuscular Hemoglobin Concent 31 L 32-36 G/DL Red Cell Distribution Width 14.9 H 10.0-14.5 % Platelet Count 222 130-400 10^3/uL Mean Platelet Volume 10.3 7.4-10.4 FL Neutrophils (%) (Auto) 83 H 42-75 % Lymphocytes (%) (Auto) 2 L 12-44 % Monocytes (%) (Auto) 14 H 0-12 % Eosinophils (%) (Auto) 0 0-10 % Basophils (%) (Auto) 0 0-10 % Neutrophils # (Auto) 14.8 H 1.8-7.8 X 10^3 Lymphocytes # (Auto) 0.4 L 1.0-4.0 X 10^3 Monocytes # (Auto) 2.5 H 0.0-1.0 X 10^3 Eosinophils # (Auto) 0.1 0.0-0.3 10^3/uL Basophils # (Auto) 0.0 0.0-0.1 10^3/uL Neutrophils % (Manual) 82 % Lymphocytes % (Manual) 0 % Monocytes % (Manual) 10 % Eosinophils % (Manual) 0 % Basophils % (Manual) 0 % Band Neutrophils 8 % Blood Morphology Comment NORMAL Sodium Level 141 135-145 MMOL/L Potassium Level 4.5 3.6-5.0 MMOL/L Chloride Level 106 98-107 MMOL/L Carbon Dioxide Level 22 21-32 MMOL/L Anion Gap 13 5-14 MMOL/L Blood Urea Nitrogen 40 H 7-18 MG/DL Creatinine 1.98 H 0.60-1.30 MG/DL Estimat Glomerular Filtration Rate 32 BUN/Creatinine Ratio 20 Glucose Level 111 H 70-105 MG/DL Calcium Level 9.9 8.5-10.1 MG/DL Corrected Calcium 9.9 8.5-10.1 MG/DL Total Bilirubin 0.6 0.1-1.0 MG/DL Aspartate Amino Transf (AST/SGOT) 19 5-34 U/L Alanine Aminotransferase (ALT/SGPT) 16 0-55 U/L Alkaline Phosphatase 38 L 40-136 U/L C-Reactive Protein High Sensitivity 4.45 H 0.00-0.50 MG/DL B-Type Natriuretic Peptide 152.4 H <100.0 PG/ML Total Protein 7.1 6.4-8.2 GM/DL Albumin 4.0 3.2-4.5 GM/DL Urine Color YELLOW Urine Clarity CLEAR Urine pH 6 5-9 Urine Specific [place] 1.020 1.016-1.022 Urine Protein 2+ H NEGATIVE Urine Glucose (UA) 2+ H NEGATIVE Urine Ketones NEGATIVE NEGATIVE Urine Nitrite NEGATIVE NEGATIVE Urine Bilirubin NEGATIVE NEGATIVE Urine Urobilinogen NORMAL NORMAL MG/DL Urine Leukocyte Esterase NEGATIVE NEGATIVE Urine RBC (Auto) NEGATIVE NEGATIVE Urine RBC NONE /HPF Urine WBC NONE /HPF Urine Squamous Epithelial Cells NONE /HPF Urine Crystals NONE /LPF Urine Bacteria NEGATIVE /HPF Urine Casts NONE /LPF Urine Mucus NEGATIVE /LPF Urine Culture Indicated NO (MERLINE ERICKSON MD) Micro Results Microbiology 02/26/19 Influenza Types A,B Antigen (EDY) - Final, Complete (MERLINE ERICKSON MD) My Orders Orders - MERLINE ERICKSON MD Cefepime 2gm Iv (1x Dose) (02/26/19 08:45) (MERLINE ERICKSON MD) Vital Signs/I&O 02/26/19 02/26/19 03:38 04:15 Temp 37.1 Pulse 79 Resp 19 B/P (MAP) 147/112 (124) O2 Delivery Room Air Nasal Cannula O2 Flow Rate 2.00 (MERLINE ERICKSON MD) Vital Signs/I&O Capillary Refill : Less Than 3 Seconds (SANTIAGO RIGGS MD) Blood Pressure Mean: 124 Progress Note : Time: 06:38 Progress Note Workup was fairly unremarkable except for leukocytosis. This is a bit concerning in light of his worsening shortness of breath and oxygen saturations. Case was discussed with Dr. Montano. He feels that this juncture it is most appropriate to admit Mr. Conde and cover with IV antibiotics until cultures can be evaluated. We are working toward this and now. Care of this patient is being transitioned to Dr. Erickson at this time. (SANTIAGO RIGGS MD) Progress Note : Progress Note 0700: I have spoken at length with the patient and family regarding our concerns related to the leukocytosis and the hypoxia. He seems to be quite dyspneic even with sitting up. He does have pulmonary embolism as well as the DVT. He has reported waking up shaking and noted to be hypoxic. I am concerned about underlying bacterial etiology. We discussed several options. He is preferring to not be in the hospital but we are trying to get all the information for hand taken make an informed decision. We will go ahead and get CT scanning of his chest without contrast to better evaluate for pneumonia as underlying etiology. He has accepted this as an option. We will rediscuss outpatient versus inpatient therapy afterwards when we have that information. Monitor patient. 0810: CT results noted and reviewed and discussed with the patient. He does have findings concerning for bilateral lower lobe pneumonia which is probably related to emboli. I did discuss the case with Dr. Montano at 0812 and he still recommends admission and initiation of cefepime. I have discussed all this with the patient and he is agreeable. 0815: I discussed the case with Dr. Martines and he accepts patient for admission, inpatient status with Dr. Montano on consult. We will go ahead and get IV line now and patient is agreeable. We will get blood cultures, lactic acid and then initiate the cefepime 2 g IV and admit on pneumonia protocol. Dr. Martines and I discussed the possibility of midline catheter given patient's aversion IVs and the likelihood that we'll have to put a catheter in the antecubital space. We will see how IV goes. 0840: Will able to place IV to the right forearm which is very comfortable for the patient. He would prefer to hold off on midline catheter and see if this catheter will hold for the IV ant ibiotics and treatment. This seems reasonable. It is a 20-gauge catheter with good flow. Admit, inpatient status. Patient agrees with plan. I did discuss resuscitation status. Patient would like to be a full code but does not want long-term life sustaining equipment if it were to be needed. He reports that he does have advanced directives and family is aware of his wishes. (MERLINE ERICKSON MD) ECG Initial ECG Impression Date: Feb 26, 2019 Initial ECG Impression Time: 04:28 Initial ECG Rate: 80 Initial ECG Rhythm: Normal Sinus Initial ECG Intervals: Normal Initial ECG Impression: Normal Comment Normal sinus rhythm with no ST elevation or depression. PVCs noted. Left axis deviation. No abnormal intervals. (SNATIAGO RIGGS MD) Diagnostic Imaging Diagonstic Imaging: Xray Plain Films/CT/US/NM/MRI: chest Comments Chest x-ray viewed by me and report not yet available. No acute abnormalities appreciated. (SANTIAGO RIGGS MD) Diagonstic Imaging: CT Plain Films/CT/US/NM/MRI: chest Comments [facility], [place] NAME: FRANTZ CONDE [facility] REC#: [id number] PT STATUS: REG ER : [id number] PHYSICIAN: SANTIAGO RIGGS MD ADMIT DATE: 02/26/19/ER Draft Date of Exam:02/26/19 CT CHEST WO PROCEDURE: CT chest without contrast. TECHNIQUE: Multiple contiguous axial images were obtained through the chest without the use of intravenous contrast. Auto Exposure Controls were utilized during the CT exam to meet ALARA standards for radiation dose reduction. INDICATION: Shortness of air, shaking, DVT, on Xarelto COMPARISON: Chest x-ray from 02/26/2019 FINDINGS: The heart is normal in size. There is mild pericardial fluid without francia effusion seen. There is coronary atherosclerosis. There is aortic atherosclerosis with an ectatic aorta measuring 3.8 cm in size. There is a borderline prominent right lower paratracheal lymph node measuring 11 mm in the short axis, otherwise no lymphadenopathy is seen. There is dependent atelectasis in the lungs bilaterally. No pleural effusion or pneumothorax is seen. Mild bronchiectasis is seen in the lung bases. There are mild groundglass and airspace opacities in the lower lobes bilaterally which are small. No acute fracture is seen. There are degenerative changes in the spine. Imaged portions of the upper abdomen demonstrate no acute abnormality. IMPRESSION: 1. Scarring and atelectasis in the lungs with scattered small nonspecific groundglass opacities, may be due to atypical infection or inflammatory process. 2. Mildly ectatic aorta. Dictated on workstation # [id number] Dict: 02/26/19 0735 Trans: 02/26/19 0745 [facility] [id number] Interpreted by: VINCENT GUAMAN MD Electronically signed by: (MERLINE ERICKSON MD) Departure Communication (Admissions) Time/Spoke to Admitting Phy: 08:15 Time/Spoke to Consulting Phy: 08:12 (MERLINE ERICKSON MD) Impression Primary Impression: Pneumonia of both lower lobes Qualified Codes: J18.1 - Lobar pneumonia, unspecified organism Additional Impressions: Hypoxia Leukocytosis Qualified Codes: D72.829 - Elevated white blood cell count, unspecified Pulmonary embolism Qualified Codes: I26.99 - Other pulmonary embolism without acute cor pulmonale Tremor Disposition: 09 ADMITTED INPATIENT Condition: Improved Admissions Decision to Admit Reason: Admit from ER (General) Decision to Admit/Date: Feb 26, 2019 Time/Decision to Admit Time: 06:30 (SANTIAGO RIGGS MD) Decision to Admit Reason: Admit from ER (General) Decision to Admit/Date: Feb 26, 2019 Time/Decision to Admit Time: 06:30 (MERLINE ERICKSON MD) Departure-Patient Inst. Referrals: ILIANA WING MD (PCP/Family) Primary Care Physician SANTIAGO RIGGS MD Feb 26, 2019 05:35 MERLINE ERICKSON MD Feb 26, 2019 07:10
[2019-02-26 05:43] LABS: BILIRUBIN,URINE NEGATIVE (NEGATIVE); CLARITY,URINE CLEAR; COLOR,URINE YELLOW; GLUCOSE, URINE (UA) 2+ (NEGATIVE); KETONES,URINE NEGATIVE (NEGATIVE); LEUKOCYTE ESTERASE ,URINE NEGATIVE (NEGATIVE); NITRITE,URINE NEGATIVE (NEGATIVE); PH,URINE 6 (5-9); PROTEIN,URINE 2+ (NEGATIVE)
[2019-02-26 05:50] LABS: BACTERIA,URINE NEGATIVE /HPF
[2019-02-26 05:54] LABS: BILIRUBIN,TOTAL 0.6 MG/DL (0.1-1.0); CALCIUM 9.9 MG/DL (8.5-10.1); CREATININE SERUM 1.98 MG/DL (0.60-1.30); POTASSIUM 4.5 MMOL/L (3.6-5.0); TOTAL PROTEIN 7.1 GM/DL (6.4-8.2)
[2019-02-26 05:56] LABS: BAND NEUTROPHILS 8 %; BASOPHILS % (MANUAL) 0 %; EOSINOPHILS % (MANUAL) 0 %; LYMPHOCYTES % (MANUAL) 0 %; MONOCYTES % (MANUAL) 10 %; NEUTROPHILS % (MANUAL) 82 %
[2019-02-26 05:57] LABS: RBC MORPH NORMAL
--- NOTE | 2019-02-26 06:10 | Diagnostic Imaging Report ---
INDICATION: Shortness of air, left leg DVT. TECHNIQUE: Two views of the chest COMPARISON: 02/21/2019 FINDINGS: The lung volumes are normal. No focal consolidation is seen. No large pleural effusion or pneumothorax is seen. The cardiomediastinal silhouette is normal in size and contour. No acute osseous abnormality is seen. A secured entrance monitor device is noted. There is a left shoulder arthroplasty. 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 There is degenerative change in right convex curvature of the thoracolumbar spine. IMPRESSION: No acute pulmonary abnormality seen. Dictated by: Dictated on workstation # [id number]
[2019-02-26] MEDS ORDERED: CEFEPIME INJECTION 2,000 MG in WATER (STERILE) FOR INJECTION 20 ML IV ONE ×2 (06:45→08:45)
--- NOTE | 2019-02-26 07:45 | Diagnostic Imaging Report ---
PROCEDURE: CT chest without contrast. TECHNIQUE: Multiple contiguous axial images were obtained through the chest without the use of intravenous contrast. Auto Exposure Controls were utilized during the CT exam to meet ALARA standards for radiation dose reduction. INDICATION: Shortness of air, shaking, DVT, on Xarelto COMPARISON: Chest x-ray from 02/26/2019 FINDINGS: The heart is normal in size. There is mild pericardial fluid without francia effusion seen. There is coronary atherosclerosis. There is aortic atherosclerosis with an ectatic aorta measuring 3.8 cm in size. There is a borderline prominent right lower paratracheal lymph node measuring 11 mm in the short axis, otherwise no lymphadenopathy is seen. There is dependent atelectasis in the lungs bilaterally. No pleural effusion or pneumothorax is seen. Mild bronchiectasis is seen in the lung bases. There are mild groundglass and airspace opacities in the lower lobes bilaterally which are small. No acute fracture is seen. There are degenerative changes in the spine. Imaged portions of the upper abdomen demonstrate no acute abnormality. IMPRESSION: 1. Scarring and atelectasis in the lungs with scattered small nonspecific groundglass opacities, may be due to atypical infection or inflammatory process. 2. Mildly ectatic aorta. Dictated by: Dictated on workstation # [id number]
--- NOTE | 2019-02-26 09:35 | NUR ---
FRANTZ CONDE admitted to room 406-1, with an admitting diagnosis of PNEUMONIA, HYPOXIA, on 02/26/19 from ED via STRETCHER, accompanied by STAFF. FRANTZ CONDE introduced to surroundings, call light, bed controls, phone, TV, temperature control, lights, meal times, smoking policy, visitor policy, side rail policy, bathrooms and showers. Patient Rights given to patient in the handbook. FRANTZ CONDE verbalizes understanding that [facility] is not responsible for the loss or damage to any personal effects or valuables that are kept in the patients possession during their hospitalization. FRANTZ CONDE verbalizes understanding of Interdisciplinary Patient Education. Patient and/or family were informed about the Rapid Response Team and its purpose.
[2019-02-26 09:47] VITALS: BP 118/65
[2019-02-26] MEDS ORDERED: CATHETER FLUSH 10 ML SYR IV PRN (10:15)
[2019-02-26 11:59] VITALS: BP 147/112
[2019-02-26] MEDS ORDERED: RIVAROXABAN 15 MG TABLET (XARELTO) PO SCH (12:01)
[2019-02-26 12:34] VITALS: BP 120/71
[2019-02-26] MEDS ORDERED: RT-ALBUTEROL/IPRATROPIUM 3 ML (DUONEB) VIAL INH PRN (13:00)
[2019-02-26] MEDS ORDERED: RIVAROXABAN PO SCH (13:30)
[2019-02-26] MEDS ORDERED: OMEPRAZOLE 20 MG (PriLOSEC) CAP NON-FORMULARY PO PRN (13:30)
[2019-02-26] MEDS ORDERED: PANTOPRAZOLE 20 MG TABLET (PROTONIX) PO PRN (13:45)
--- NOTE | 2019-02-26 14:43 | History & Physical-Hospitalist ---
History of Present Illness HPI/Chief Complaint Tank Byrne is an 89yoM with history of HTN, HLD, AFib, recently diagnosed with DVT/PE one week ago and started on Xarelto, who presented with shortness of breath. He reports waking up in the middle of the night shaking for the past few days. He does not have oxygen at home, but does have a pulse oximeter which he used and showed his oxygen was in the low 80s. He reports having a dry cough. He denies orthopnea and PND. He denies chest pain. He denies pleuritic pain. He reports compliance with his medications. He denies nausea, vomiting, diarrhea, constipation, abdominal pain, and dysuria. Source: patient Exam Limitations: no limitations Date Seen 02/26/19 Time Seen by a Provider: 11:00 Attending Physician Stacy Painter MD PCP Jese Tam MD Referring Physician Date of Admission Feb 26, 2019 at 09:17 Home Medications & Allergies Home Medications Reviewed patient Home Medication Reconciliation performed by pharmacy medication reconciliations avionics technician and/or nursing. Patients Allergies have been reviewed. Allergies Allergies Coded Allergies Penicillins (Verified Allergy, Severe, Anaphylaxis (pt tolerates Ceftriaxone), 02/26/19) iodine (Verified Allergy, Unknown, 02/26/19) Uncoded Allergies SURGICAL GLUE ( Allergy, Severe, "TOOK OFF SKIN", 06/04/17) Past Gjehkty-Godabz-T[place]oia Hx Past Med/Social Hx: Reviewed Nursing Past Med/Soc Hx Patient Social History Alcohol Use: Denies Use Recreational Drug Use: No Smoking Status: Never a Smoker 2nd Hand Smoke Exposure: No Recent Foreign Travel: No Contact w/other who traveled: No Recent Hopitalizations: Yes (RECENT DC 02/22/19) Recent Infectious Disease Expo: No Immunizations Up To Date Pediatric: No Date of Pneumonia Vaccine: Feb 26, 2015 Date of Influenza Vaccine: Feb 24, 2019 Seasonal Allergies Seasonal Allergies: No Past Medical History Surgeries: Orthopedic, Renal Cardiac: Atrial Fibrillation, Deep Vein Thrombosis, High Cholesterol, Hypertension Neurological: Neuropathy Reproductive: Yes Genitourinary: Benign Prostatic Hyperpl, Bladder Infection, Kidney Stones, UTI- Chronic Gastrointestinal: Gastroesophageal Reflux, Esophagitis, Hiatal Hernia, Ulcer Musculoskeletal: Arthritis, Chronic Back Pain Cancer: Skin History of Blood Disorders: No Family History Lung cancer Severe allergy 19 FATHER No Pertinent Family Hx Review of Systems Constitutional: chills EENTM: no symptoms reported Respiratory: cough, short of breath Cardiovascular: no symptoms reported Gastrointestinal: no symptoms reported Genitourinary: no symptoms reported Musculoskeletal: no symptoms reported Skin: no symptoms reported Psychiatric/Neurological: No Symptoms Reported Physical Exam Physical Exam Vital Signs Vital Signs - First Documented 02/26/19 02/26/19 02/26/19 02/26/19 03:38 04:15 09:29 11:59 Temp 37.1 Pulse 79 Resp 19 B/P (MAP) 147/112 (124) Pulse Ox 95 O2 Delivery Room Air O2 Flow Rate 2.00 FiO2 28 Capillary Refill : Less Than 3 Seconds Height, Weight, BMI Height: 5'8.00" Weight: 176lbs. 5.0oz. 79.855915an; 27.39 BMI Method:Stated General Appearance: No Apparent Distress, WD/WN HEENT: PERRL/EOMI, Pharynx Normal, Other (wearing nasal cannula) Neck: Normal Inspection, Supple Respiratory: Lungs Clear, Normal Breath Sounds, No Respiratory Distress Cardiovascular: Regular Rate, Rhythm, No Edema, No Murmur Gastrointestinal: Normal Bowel Sounds, Non Tender, Soft Extremity: Normal Inspection, Non Tender, No Pedal Edema Neurologic/Psychiatric: Alert, Oriented x3, No Motor/Sensory Deficits, Normal Mood/Affect Skin: Normal Color, Warm/Dry Lymphatic: No Adenopathy Results Results/Procedures Labs Laboratory Tests 02/26/19 05:21 Patient resulted labs reviewed. Imaging: Reviewed Imaging Films, Reviewed Imaging Report Assessment/Plan Admission Diagnosis Acute respiratory failure with hypoxia due to pneumonia Admission Status: Inpatient Order (span 2 midnights) Reason for Inpatient Admission: Pneumonia requiring antibiotics and oxygen Assessment and Plan Acute respiratory failure with hypoxia Community acquired pneumonia Sepsis due to pneumonia -SIRS+ with pneumonia on XR -Started on Cefepime -Add Azithromycin for atypical coverage -Begin low-rate IV fluids -Supplemental oxygen as needed -Blood cultures drawn -Lactic acid within normal limits DVT PE -Continue Xarelto CKD -Cr 1.98, appears to be at or near baseline -Continue to monitor HLD -Continue fenofibrate Paroxysmal atrial fibrillation -Continue dronedarone Diagnosis/Problems Diagnosis/Problems (1) Acute respiratory failure with hypoxemia Status: Acute (2) Community acquired pneumonia Status: Acute (3) Sepsis due to pneumonia Status: Acute (4) HLD (hyperlipidemia) Status: Chronic (5) DVT (deep venous thrombosis) Status: Acute (6) Pulmonary embolism Status: Acute Qualifiers: Pulmonary embolism type: unspecified Chronicity: acute Acute cor pulmonale presence: unspecified Qualified Codes: I26.99 - Other pulmonary embolism without acute cor pulmonale (7) Atrial fibrillation Status: Chronic Qualifiers: Atrial fibrillation type: paroxysmal Qualified Codes: I48.0 - Paroxysmal atrial fibrillation (8) CKD (chronic kidney disease) stage 3, GFR 30-59 ml/min Status: Chronic Clinical Quality Measures DVT/VTE Risk/Contraindication: Risk Factor Score Per Nursin RFS Level Per Nursing on Admit: 4+=Very High STACY PAINTER MD Feb 26, 2019 14:43 POS
[2019-02-26] MEDS ORDERED: PATIENT MAY USE OWN MEDS, ALL MC SCH (14:45)
[2019-02-26] MEDS: RT-ALBUTEROL/IPRATROPIUM 3 ML (DUONEB) VIAL INH SCH ×2 (14:50→19:59)
[2019-02-26] MEDS ORDERED: AZITHROMYCIN INJECTION 500 MG in NS (IVPB) 250 ML IV NR (15:00)
[2019-02-26] MEDS ORDERED: RIVA15TA PO (15:21)
--- NOTE | 2019-02-26 15:24 | NUR ---
SPOKE WITH PT, WENT OVER THE EXT MED HISTORY AND CALLED [facility] TO COMPLETE THE MED REC. PT COULD TELL ME ALL HIS MEDICATIONS AND HOW/WHEN HE TAKES THEM, AND THAT MATCHED THE EXT MED HISTORY. I WANTED TO VERIFY THE XARELTO HE RECEIVED (THE EXT MED HISTORY WAS UNCLEAR), [facility] DID NOT HAVE THE XARELTO STARTING PACK, SO THEY CALLED THE DR TO SEE WHAT HE WANTED THEM TO DO. THEY DECIDED TO GIVE THE 15MG BID X 21 DAYS AND WOULD DO THE MAINTENANCE THERAPY AFTER. HE RECEIVED XARELTO 15MG#42 AND WAS TOLD THE WEEK OF 02-26-2019 TO FOLLOW UP WITH HIS DR AND THEY WOULD PROCEED ACCORDINGLY. OTC MEDS: TYLENOL SAEED C CALCIUM WITH VIT D VITAMIN B12 FOLIC ACID MAGNESIUM ONE A DAY VITAMIN OMEPRAZOLE
--- NOTE | 2019-02-26 15:27 | Pulmonary Consultation ---
History of Present Illness History of Present Illness Date of Consultation 02/26/19 15:22 Time Seen by Provider: 07:00 Date of Admission History of Present Illness 89yo with hx of HTN, Afib and dx with DVT/PE one week ago and tx with Xarelto presented to ED secondary to worsening SOB, and nonproductive cough. Pt states he has been waking up SOB and when he checks his Sp02 it is in the 80's. PT was found to have a leukocytosis while in the ED. CT of chest shows atelectasis and infiltrates. Denies missing any medications. Denies CP. No n/v/d. I am consulted for pulmonary management. Allergies and Home Medications Allergies Coded Allergies: Penicillins (Verified Allergy, Severe, Anaphylaxis (pt tolerates Ceftriaxone), 02/26/19) iodine (Verified Allergy, Unknown, 02/26/19) Uncoded Allergies: SURGICAL GLUE (Allergy, Severe, "TOOK OFF SKIN", 06/04/17) Home Medications Acetaminophen 650 Mg Tablet.er, 650 MG PO TID PRN for PAIN-MILD, (Reported) Ascorbate Calcium/Bioflavonoid 1 Each Tablet, 1,000 MG PO 1200, (Reported) Calcium Carbonate/Vitamin D3 1 Each Tablet, 1 TAB PO 1200, (Reported) Cholecalciferol (Vitamin D3) 2,000 Unit Capsule, 2,000 UNIT PO 1200, (Reported) Cyanocobalamin (Vitamin B-12) 500 Mcg Tablet, 500 MCG PO 1200, (Reported) Diclofenac Sodium 100 Gm Gel..gram., TOP HS, (Reported) APPLY TO HANDS Dronedarone HCl 400 Mg Tablet, 400 MG PO BID, (Reported) Fenofibrate 160 Mg Tablet, 160 MG PO HS, (Reported) Folic Acid 0.4 Mg Tablet, 0.4 MG PO 1200, (Reported) Magnesium Oxide 400 Mg Capsule, 400 MG PO 1200, (Reported) Metoprolol Succinate 25 Mg Tab.er.24h, 25 MG PO HS, (Reported) Mv,Minerals/FA/Lycopene/Ginkgo 1 Each Tablet, 1 TAB PO 1200, (Reported) Omeprazole 20 Mg Capsule.dr, 20 MG PO DAILY PRN for HEARTBURN, (Reported) Rivaroxaban 15 Mg Tablet, 15 MG PO BID, (Reported) Past Yjuevvw-Adezrd-Juoudu Hx Past Med/Social Hx: Reviewed Nursing Past Med/Soc Hx Patient Social History Alcohol Use: Denies Use Recreational Drug Use: No Smoking Status: Never a Smoker 2nd Hand Smoke Exposure: No Recent Foreign Travel: No Contact w/Someone Who Travel: No Recent Infectious Disease Expo: No Recent Hopitalizations: Yes (RECENT DC 02/22/19) Physical Abuse: No Sexual Abuse: No Mistreated: No Fear: No Immunizations Up To Date PED Vaccines UTD: No Date of Pneumonia Vaccine: Feb 26, 2015 Date of Influenza Vaccine: Feb 24, 2019 Seasonal Allergies Seasonal Allergies: No Past Medical History Surgeries: Yes Orthopedic, Renal Respiratory: Yes Pulmonary Embolism Cardiac: Yes (HEART MONITOR, SEES DR HERNANDEZ) Atrial Fibrillation, Deep Vein Thrombosis, High Cholesterol, Hypertension Neurological: Yes Neuropathy Reproductive Disorders: Yes Genitourinary: Yes Benign Prostatic Hyperpl, Bladder Infection, Kidney Stones, UTI-Chronic Gastrointestinal: Yes Gastroesophageal Reflux, Esophagitis, Hiatal Hernia, Ulcer Musculoskeletal: Yes Arthritis, Chronic Back Pain Endocrine: No HEENT: No Cancer: Yes Skin Psychosocial: No Integumentary: No Blood Disorders: No Family Medical History Lung cancer Severe allergy 19 FATHER No Pertinent Family Hx Review of Systems Time Seen by Provider: 09:46 Constitutional: Fever, Chills, Sweats, Weakness, Malaise, Other Eyes: No: Pain, Vision change, Conjunctivae inflammation, Eyelid inflammation, Other, Redness ENT: Nose congestion; No: Ear pain, Ear discharge, Nose pain, Nose discharge, Mouth pain, Mouth swelling, Throat pain, Throat swelling, Other Respiratory: Cough, Shortness of breath, Wheezing, Sputum Cardiovascular: Paroxysmal Noc. Dyspnea, Lt Headedness; No: Chest Pain, Palpitations, Orthopnea, Edema, Other Gastrointestinal: No: Nausea, Vomiting, Abdominal Pain, Diarrhea, Constipation, Melena, Hematochezia, Other Genitourinary: No Dysuria, No Frequency, No Incontinence, No Hematuria, No Retention, No Other Sepsis Event Evaluation Height, Weight, BMI Height: 5'8.00" Weight: 176lbs. 5.0oz. 79.920814zf; 27.39 BMI Method:Stated Exam Exam Vital Signs Date Time Temp Pulse Resp B/P (MAP) Pulse Ox O2 Delivery O2 Flow Rate FiO2 02/26/19 14:50 93 Nasal Cannula 3.00 02/26/19 12:34 35.5 95 20 120/71 (87) 95 Nasal Cannula 2.00 02/26/19 11:59 37.1 79 96 28 02/26/19 10:45 Room Air 02/26/19 09:47 36.6 78 22 118/65 96 Nasal Cannula 2.00 02/26/19 09:29 37.6 79 16 120/60 95 Nasal Cannula 3.00 02/26/19 04:15 Nasal Cannula 2.00 02/26/19 03:38 37.1 79 19 147/112 (124) Room Air Height & Weight Height: 5'8.00" Weight: 176lbs. 5.0oz. 79.841901eg; 27.39 BMI Method:Stated General Appearance: No Apparent Distress, WD/WN HEENT: PERRL/EOMI, Pharynx Normal, Other (wearing nasal cannula) Neck: Normal Inspection, Supple Respiratory: Lungs Clear, Normal Breath Sounds, No Respiratory Distress Cardiovascular: Regular Rate, Rhythm, No Edema, No Murmur Capillary Refill: Less Than 3 Seconds Extremity: Normal Inspection, Non Tender, No Pedal Edema Neurologic/Psychiatric: Alert, Oriented x3, No Motor/Sensory Deficits, Normal Mood/Affect Skin: Normal Color, Warm/Dry Lymphatic: No Adenopathy Results Lab Laboratory Tests 02/26/19 05:21 Assessment/Plan Assessment/Plan Acute PNA with leukocytosis -Continue Cefepime, and Azithromycin -[place] cultures Recently Dx acute PE -Continue Abx Acute renal failure -IVF YAZMIN JONES DO Feb 26, 2019 15:27 POS
[2019-02-26 15:39] VITALS: BP 108/56
--- NOTE | 2019-02-26 15:39 | NUR ---
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 The pt shared openly about his alberto, his pride in his children, his love for his , and his struggles with ill health. 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 He welcomed prayer and expressed appreciation for our visit.
[2019-02-26 20:13] VITALS: BP 122/66
[2019-02-26] MEDS: RIVAROXABAN 15 MG TABLET (XARELTO) PO SCH (20:33)
[2019-02-26] MEDS: DRONEDARONE TABLET 400 MG TABLET PO SCH (20:34)
[2019-02-26] MEDS: FENOFIBRATE 160 MG TAB PO SCH (20:35)
[2019-02-26] MEDS: CEFEPIME 1,000 MG/SWFI 10 ML IV PUSH IV SCH ×2 (20:35)
[2019-02-26] MEDS ORDERED: FENOFIBRATE 134 MG (LOFIBRA) CAPSULE PO SCH (21:00)
[2019-02-26] MEDS ORDERED: NON-FORMULARY MEDICATION 1 EA EA (Fenofibrate 160 MG) PO SCH (21:00)
[2019-02-27] VITALS (8 sets, daily range): BP systolic 95–126; BP diastolic 56–76
[2019-02-27] MEDS: RT-ALBUTEROL/IPRATROPIUM 3 ML (DUONEB) VIAL INH SCH ×4 (02:42→21:40)
--- NOTE | 2019-02-27 06:16 | Pulmonary Progress Note ---
Subjective Time Seen by a Provider: 07:51 Subjective/Events-last exam Pt feels improved. No complications noted. Sepsis Event Evaluation Height, Weight, BMI Height: 5'8.00" Weight: 176lbs. 5.0oz. 79.504732aa; 27.39 BMI Method:Stated Focused Exam Lactate Level 02/26/19 09:17: Lactic Acid Level 1.28 Exam Exam Vital Signs Date Time Temp Pulse Resp B/P (MAP) Pulse Ox O2 Delivery O2 Flow Rate FiO2 02/27/19 04:38 36.7 92 18 109/62 (78) 90 Nasal Cannula 3.00 02/27/19 02:43 97 Nasal Cannula 3.00 02/27/19 00:15 110/62 (78) 02/27/19 00:00 37.1 75 20 95/56 (69) 91 Nasal Cannula 3.00 02/26/19 20:13 36.9 80 20 122/66 (84) 94 Nasal Cannula 3.00 02/26/19 20:00 Nasal Cannula 2.00 02/26/19 19:59 93 Nasal Cannula 3.00 02/26/19 15:39 36.9 69 20 108/56 (73) 93 Nasal Cannula 3.00 02/26/19 14:50 93 Nasal Cannula 3.00 02/26/19 12:34 35.5 95 20 120/71 (87) 95 Nasal Cannula 2.00 02/26/19 11:59 37.1 79 96 28 02/26/19 10:45 Room Air 02/26/19 09:47 36.6 78 22 118/65 96 Nasal Cannula 2.00 02/26/19 09:29 37.6 79 16 120/60 95 Nasal Cannula 3.00 I & O 02/27/19 07:00 Intake Total 2190 ml Output Total 700 ml Balance 1490 ml Height & Weight Height: 5'8.00" Weight: 176lbs. 5.0oz. 79.936656xt; 27.39 BMI Method:Stated General Appearance: No Apparent Distress, WD/WN HEENT: PERRL/EOMI, Pharynx Normal, Other (wearing nasal cannula) Neck: Normal Inspection, Supple Respiratory: Lungs Clear, Normal Breath Sounds, No Respiratory Distress Cardiovascular: Regular Rate, Rhythm, No Edema, No Murmur Capillary Refill: Less Than 3 Seconds Extremity: Normal Inspection, Non Tender, No Pedal Edema Neurologic/Psychiatric: Alert, Oriented x3, No Motor/Sensory Deficits, Normal Mood/Affect Skin: Normal Color, Warm/Dry Lymphatic: No Adenopathy Results Lab Laboratory Tests 02/26/19 05:21 Assessment/Plan Assessment/Plan Acute PNA with leukocytosis -Continue Cefepime, and Azithromycin -Aguillon cultures Recently Dx acute PE -Continue Xarelto Acute renal failure -IVF Nocturnal hypoxia -Will do overnight oximetry for home 02. YAZMIN JONES DO Feb 27, 2019 06:16 POS
[2019-02-27 06:27] LABS: BASOPHILS % (AUTO) 0 % (0-10); EOSINOPHILS # (AUTO) 0.1 10^3/uL (0.0-0.3); EOSINOPHILS % (AUTO) 1 % (0-10); HEMATOCRIT 32 % (40-54); HEMOGLOBIN 10.1 G/DL (13.3-17.7); LYMPHOCYTES # (AUTO) 0.6 X 10^3 (1.0-4.0); LYMPHOCYTES % (AUTO) 5 % (12-44); MEAN CORPUSCULAR HEMOGLOBIN 32 PG (25-34); MEAN CORPUSCULAR HGB CONC 32 G/DL (32-36); MEAN CORPUSCULAR VOLUME 101 FL (80-99); MEAN PLATELET VOLUME 10.5 FL (7.4-10.4); MONOCYTES # (AUTO) 1.5 X 10^3 (0.0-1.0); MONOCYTES % (AUTO) 12 % (0-12); NEUTROPHILS # (AUTO) 10.3 X 10^3 (1.8-7.8); NEUTROPHILS % (AUTO) 83 % (42-75); PLATELET COUNT 198 10^3/uL (130-400); RED CELL DISTRIBUTION WIDTH 14.9 % (10.0-14.5); WHITE BLOOD COUNT 12.4 10^3/uL (4.3-11.0)
[2019-02-27 06:47] LABS: ALBUMIN 3.3 GM/DL (3.2-4.5); BILIRUBIN,TOTAL 0.4 MG/DL (0.1-1.0); CALCIUM 8.9 MG/DL (8.5-10.1); CREATININE SERUM 1.87 MG/DL (0.60-1.30); MAGNESIUM 2.1 MG/DL (1.6-2.4); PHOSPHORUS 3.1 MG/DL (2.3-4.7); POTASSIUM 4.3 MMOL/L (3.6-5.0)
[2019-02-27] MEDS: DRONEDARONE TABLET 400 MG TABLET PO SCH ×2 (07:58→20:53)
[2019-02-27] MEDS: RIVAROXABAN 15 MG TABLET (XARELTO) PO SCH ×2 (07:59→20:53)
[2019-02-27] MEDS: CEFEPIME 1,000 MG/SWFI 10 ML IV PUSH IV SCH ×2 (08:47)
[2019-02-27] MEDS ORDERED: AZITHROMYCIN 250 MG TAB (ZITHROMAX) PO SCH (09:00)
--- NOTE | 2019-02-27 09:21 | Occupational Therapy Eval ---
OT Evaluation-General/PLF Medical Diagnosis Admission Date Feb 26, 2019 at 09:17 Medical Diagnosis: Pneumonia, Hypoxia Onset Date: Feb 26, 2019 Therapy Diagnosis Therapy Diagnosis: impaired ADLs and functional mobility. Height/Weight Height (Feet): 5 Height (Inches): 8.00 Weight (Pounds): 176 Weight (Ounces): 5.0 Precautions Precautions/Isolations: Contact Isolation Referral Physician: Conrad Referral Reason: Activity Tolerance, Self Care, Evaluation/Treatment, Strengthening/ROM Medical History Pertinent Medical History: Atrial Fib, Arthritis, GERD, HTN, Neuropathy, Renal Insufficiency Current History Per H&P: "Tank Byrne is an 89yoM with history of HTN, HLD, AFib, recently diagnosed with DVT/PE one week ago and started on Xarelto, who presented with shortness of breath. He reports waking up in the middle of the night shaking for the past few days. He does not have oxygen at home, but does have a pulse oximeter which he used and showed his oxygen was in the low 80s. He reports having a dry cough. He denies orthopnea and PND. He denies chest pain. He denies pleuritic pain. He reports compliance with his medications. He denies nausea, vomiting, diarrhea, constipation, abdominal pain, and dysuria." Reviewed History: Yes Social History Home: Single Level Current Living Status: Spouse Pt reported he currently lives with his . He states his has declining short term memory and she gets assistance 5 days a week for all but 2 hours of the day and no assistance at night. ADL-Prior Level of Function SCALE: Activities may be completed with or without assistive devices. 0-Dbbnjoldcr-imaqoja completes the activity by him/herself with no assistance from a helper. 5-Set-up or Clean-up Assistance-helper sets up or cleans up; patient completes activity. [place] assists only prior to or following the activity. 4-Supervision or Touching Assistance-helper provides verbal cues and/or touching/steadying and/or contact guard assistance as patient completes activity. Assistance may be provided throughout the activity or intermittently. 3-Partial/Moderate Assistance-helper does LESS THAN HALF the effort. [place] lifts, holds or supports trunk or limbs, but provides less than half the effort. 2-Substantial/Maximal Assistance-helper does MORE THAN HALF the effort. [place] lifts or holds trunk or limbs and provides more than half the effort. 3-Zzxhecfxe-vynnpr does ALL the effort. Patient does none of the effort to complete the activity. Or, the assistance of 2 or more helpers is required for the patient to complete the activity. If activity was not attempted, code reason: 7-Patient Refused. 9-Not Applicable-not attempted and the patient did not perform the activity before the current illness, exacerbation or injury. 10-Not Attempted due to Environmental Limitations-(lack of equipment, weather restraints, etc.). 88-Not Attempted due to Medical Conditions or Safety Concerns. ADL PLOF Comments Pt reports his 's caretakers help with cooking and cleaning. Pt reports he is currently able to complete all of his dressing and bathing by himself and he has been completing the yard work himself as well. Self Care: Needed Some Help ('s caretakers complete cooking and cleaning) Functional Cognition: Independent DME/Equipment: Bath Chair, Grab Bars, Tub/Shower DME/Equipment Comments Pt reports he has a walker at home but he currently only uses it when he feels like he needs to. OT Current Status Subjective Pt upright in recliner at start of session, agreeable to OT evaluation on this date. Pt did not report any pain during tx. Mental Status/Objective Patient Orientation: Person, Place, Time, Situation Attachments: IV Current Glasses/Contacts: Yes Hearing Aids: No Dentures/Partials: No Hand Dominance: Left Upper Extremity ROM WFL, BUE shoulder flexion to approximately 160 degrees. Pt able to touch back of head with hands. Upper Extremity Coordination slightly impaired thumb opposition to each finger, noted slight tremors LUE during task. Upper Extremity Sensation Pt reports numbness along ulnar nerve distribution left hand. Upper Extremity Strength 3/5 MMT BUE ADL-Treatment On/Off Footwear (QC): 3 (Pt demo'd ability to don/doff LLE sock. Pt required rest break after left foot, did not demo ability to don/doff right sock on this date.) Other Treatments Pt upright in recliner at start of session, provided information for OT eval about PLOF and home set up. Pt then demo'd donning/doffing footwear. Pt was able to scoot forward in recliner to complete task without assistance from OT. Pt required a rest break after donning/doffing LLE sock secondary to decreased activity tolerance. Post OT session, pt seated upright in recliner, call light i n reach and all needs met. Education OT Patient Education: Correct positioning, Modified ADL techniques, Progress toward Goal/Update tx plan, Purpose of tx/functional activities Teaching Recipient: Patient Teaching Methods: Demonstration Response to Teaching: Verbalize Understanding OT Short Term Goals Short Term Goals 1=Demonstrate adherence to instructed precautions during ADL tasks. 2=Patient will verbalize/demonstrate understanding of assistive devices/modifications for ADL. 3=Patient will improve strength/tolerance for activity to enable patient to perform ADL's. OT Client Professional Goals Senior Living Goals Time Frame: Mar 14, 2019 Eating (QC): 6 Oral Hygiene (QC): 6 Shower/Bathe Self (QC): 6 Upper Body Dressing (QC): 6 Lower Body Dressing (QC): 6 On/Off Footwear (QC): 6 Toileting Hygiene (QC): 6 Toilet/Commode Transfer (QC): 6 Additional Goals: 1-Demonstrate ADL Tasks, 2-Verbalize Understanding, 3- ImproveStrength/Rudolph 1=Demonstrate adherence to instructed precautions during ADL tasks. 2=Patient will verbalize/demonstrate understanding of assistive devices/modifications for ADL. 3=Patient will improve strength/tolerance for activity to enable patient to perform ADL's. OT Education/Plan Problem List/Assessment Assessment: Decreased Activ Tolerance, Decreased UE Strength, Impaired Coordination, Impaired I ADL's, Impaired Self-Care Skills Pt presents with decreased UE strength, coordination, and activity tolerance impacting his ability to be more independent with ADLs and functional activities. Pt would benefit from skilled OT intervention at this time in order to increase independence and participation in ADLs/ Functional activities. Discharge Recommendations Plan/Recommendations: Continue POC Treatment Plan/Plan of Care Treatment,Training & Education: Yes Patient would benefit from OT for education, treatment and training to promote independence in ADL's, mobility, safety and/or upper extremity function for ADL' s. Plan of Care: ADL Retraining, Functional Mobility, UE Funct Exercise/Act Treatment Duration: Mar 14, 2019 Frequency: 5 times per week Estimated Hrs Per Day: .25 hour per day Agreement: Yes Rehab Potential: Good Time/GCodes Start Time: 08:55 Stop Time: 09:12 Total Time Billed (hr/min): 17 Billed Treatment Time 1, EVL [id number] JOSLYN JEONG OT Feb 27, 2019 09:21 POS
--- NOTE | 2019-02-27 09:50 | Physical Therapy Evaluation ---
PT Evaluation-General Medical Diagnosis Admission Date Feb 26, 2019 at 09:17 Medical Diagnosis: Pneumonia, Hypoxia Onset Date: Feb 26, 2019 Therapy Diagnosis Therapy Diagnosis: generalized weakness/debility Height/Weight Height (Feet): 5 Height (Inches): 8.00 Weight (Pounds): 176 Weight (Ounces): 5.0 Precautions Precautions/Isolations: Contact Isolation Weight Bear Status Right Lower Extremity: Right Weight Bearing/Tolerated Left Lower Extremity: Left Weight Bearing/Tolerated Referral Physician: Conrad Reason for Referral: Evaluation/Treatment Medical History Pertinent Medical History: Atrial Fib, Arthritis, GERD, HTN, Neuropathy, Renal Insufficiency Current History Presented to ER with c/o SOA Reviewed History: Yes Social History Home: Single Level Current Living Status: Spouse Prior Prior Level of Function SCALE: Activities may be completed with or without assistive devices. 8-Cbvcwgjoex-cpzuaju completes the activity by him/herself with no assistance from a helper. 5-Set-up or Clean-up Assistance-helper sets up or cleans up; patient completes activity. [place] assists only prior to or following the activity. 4-Supervision or Touching Assistance-helper provides verbal cues and/or touching/steadying and/or contact guard assistance as patient completes activity. Assistance may be provided throughout the activity or intermittently. 3-Partial/Moderate Assistance-helper does LESS THAN HALF the effort. [place] lifts, holds or supports trunk or limbs, but provides less than half the effort. 2-Substantial/Maximal Assistance-helper does MORE THAN HALF the effort. [place] lifts or holds trunk or limbs and provides more than half the effort. 4-Ignbqzlto-wgiddz does ALL the effort. Patient does none of the effort to complete the activity. Or, the assistance of 2 or more helpers is required for the patient to complete the activity. If activity was not attempted, code reason: 7-Patient Refused. 9-Not Applicable-not attempted and the patient did not perform the activity before the current illness, exacerbation or injury. 10-Not Attempted due to Environmental Limitations-(lack of equipment, weather restraints, etc.). 88-Not Attempted due to Medical Conditions or Safety Concerns. Bed Mobility: 6 Transfers (B,C,W/C): 6 Gait: 6 Stairs: 6 Indoor Mobility (Ambulation): Independent Stairs: Independent Prior Devices Use: Walker (Occassionally used) PT Evaluation-Current Subjective Patient agrees to PT at this time and wants to walk further during PT. Patient is wearing O2 but states it was only for sleeping. Pain Numeric Pain Scale: 0-No Pain Location: No Pain Reported Objective Patient Orientation: Person, Place, Time, Situation Problem Solving: Good Attachments: Oxygen ROM/Strength ROM Lower Extremities WFL Strength Lower Extremities Grossly 4/5 Integumentary/Posture Integumentary See nursing notes Bowel Incontinence: No Bladder Incontinence: No Posture WFL Neuromuscular (Tone, Coordination, Reflexes) grossly intact Sensory Vision: Functional Hearing: Functional Hand Dominance: Left Transfers Sit to Stand (QC): 6 Gait Does the Patient Walk?: Yes Mode of Locomotion: Walk Anticipated Mode of Locomotion: Walk Distance (FIM): 4=535-74 ft Walk 10 feet (QC): 6 Walk 50 ft with 2 Turns(QC): 6 Walk 150 ft (QC): 6 Distance: 500' Gait Assistive Device: FWW Comments/Gait Description Normal pattern and pace. Balance Sitting Static: Normal Sitting Dynamic: Normal Standing Static: Normal Standing Dynamic: Normal Assessment/Needs Patient able to stand and ambulate safely and independently with FWW with normal pattern and pace. Patient walked without O2 and O2 sat at conclusion of tx was measured at 95%. Patient did not report any SOB during tx. Rehab Potential: Good PT Mailroom Manager Goals Mailroom Manager Goals PT Mailroom Manager Goals Time Frame: Mar 06, 2019 Sit to Lying (QC): 6 Lying-Sitting on Side/Bed(QC): 6 Sit to Stand (QC): 6 Roll Left to Right (QC): 6 Chair/Piw-xp-Ozcgz Xfer(QC): 6 Car Transfer (QC): 6 Does the Patient Walk: Yes Distance: 800' Walk 10 feet (QC): 6 Walk 10ft-Uneven Surface(QC): 6 Walk 50ft with 2 Turns (QC): 6 Walk 150 ft (QC): 6 Gait Assistive Device: FWW PT Plan Problem List Problem List: Activity Tolerance, Functional Strength, Safety, Balance, Gait, Transfer, Bed Mobility Treatment/Plan Treatment Plan: Continue Plan of Care Treatment Plan: Bed Mobility, Education, Functional Activity Rudolph, Functional Strength, Gait, Safety, Therapeutic Exercise, Transfers Treatment Duration: Mar 06, 2019 Frequency: 5 times per week Estimated Hrs Per Day: .25 hour per day Patient and/or Family Agrees t: Yes Time/GCodes Time In: 837 Time Out: 850 Total Billed Treatment Time: 13 Total Billed Treatment 1 visit EVM 13min ISABELLA COE PT Feb 27, 2019 09:49 POS
[2019-02-27] MEDS ORDERED: LEVOFLOXACIN 750 MG TAB (LEVAQUIN) PO ONE (11:45)
--- NOTE | 2019-02-27 12:02 | Progress Note - Hospitalist ---
Subjective HPI/CC On Admission Date Seen by Provider: Feb 27, 2019 Time Seen by Provider: 10:30 shortness of breath Subjective/Events-last exam He reports having improved shortness of breath. He continues to have cough with sputum production. He denies fever and chills. He denies abdominal pain, nausea, vomiting. Focused Exam Lactate Level 02/26/19 09:17: Lactic Acid Level 1.28 Objective Exam Vital Signs Vital Signs Date Time Temp Pulse Resp B/P (MAP) Pulse Ox O2 Delivery O2 Flow Rate FiO2 02/27/19 11:17 84 20 95 02/27/19 08:00 36.9 122/76 (91) Nasal Cannula 3.00 02/26/19 11:59 28 Capillary Refill : Less Than 3 SecondsLess Than 3 Seconds General Appearance: No Apparent Distress, WD/WN Neck: Normal Inspection, Supple Respiratory: Lungs Clear, Normal Breath Sounds, No Respiratory Distress Cardiovascular: Regular Rate, Rhythm, No Edema, No Murmur Gastrointestinal: Normal Bowel Sounds, Non Tender, Soft Extremity: Normal Inspection, Non Tender, No Pedal Edema Neurologic/Psychiatric: Alert, Oriented x3, No Motor/Sensory Deficits, Normal Mood/Affect Skin: Normal Color, Warm/Dry Results/Procedures Lab Laboratory Tests 02/27/19 05:25 Patient resulted labs reviewed. Assessment/Plan Assessment and Plan Assess & Plan/Chief Complaint Acute respiratory failure with hypoxia Community acquired pneumonia -Currently on Cefepime and Azithromycin -Not requiring supplemental oxygen with PT today -Blood cultures with no growth -Transition to oral Levaquin DVT PE -Continue Xarelto CKD -Cr 1.87, appears to be at or near baseline -Continue to monitor HLD -Continue fenofibrate Paroxysmal atrial fibrillation -Continue dronedarone and Xarelto Diagnosis/Problems Diagnosis/Problems (1) Acute respiratory failure with hypoxemia Status: Acute (2) Community acquired pneumonia Status: Acute (3) Sepsis due to pneumonia Status: Acute (4) HLD (hyperlipidemia) Status: Chronic (5) DVT (deep venous thrombosis) Status: Acute (6) Pulmonary embolism Status: Acute Qualifiers: Pulmonary embolism type: unspecified Chronicity: acute Acute cor pulmo nale presence: unspecified Qualified Codes: I26.99 - Other pulmonary embolism without acute cor pulmonale (7) Atrial fibrillation Status: Chronic Qualifiers: Atrial fibrillation type: paroxysmal Qualified Codes: I48.0 - Paroxysmal atrial fibrillation (8) CKD (chronic kidney disease) stage 3, GFR 30-59 ml/min Status: Chronic Clinical Quality Measures DVT/VTE Risk/Contraindication: Risk Factor Score Per Nursin RFS Level Per Nursing on Admit: 4+=Very High ANETTE PAINTER MD Feb 27, 2019 12:02 POS
--- NOTE | 2019-02-27 12:04 | Physician Query Clarification ---
PQ-Further Specificity Admission/Discharge Admission Date: Feb 26, 2019 at 09:17 Discharge Date: The medical record reflects the following clinical scenario: History/Risk Factors: Sepsis Pneumonia Acute Respiratory Failure with hypoxia Acute Pulmonary Embolism Clinical Findings:Resp 19 to 22, BP 147/112, shortness of air with exertion,shortness of air at rest. Treatment:Nasal cannula 3 L, Nebulizer treatments. Question: Can you further specify Acute Respiratory Failure with hypoxia per the clinical indicators above? Please document a response in the Progress Notes or Discharge Summary. 1. Acute respiratory failure due to sepsis. 2. Acute respiratory failure not due to sepsis. 3. Other, with explanation of the clinical findings. 4. Clinically undetermined, no explanation for the clinical findings. PHYSICIAN RESPONSE Can you specify per above: 1 Please remember a lack of response to the above will prompt a phone page by CDI/Coding staff. In responding to this query, please exercise your independent professional judgment. The purpose of this communication is to more accurately reflect the complexity of your patients condition. The fact that a question is asked does not imply that any particular answer is desired or expected. Thank you for your timely response to this clarification. Requestors name: [ ] Phone # [ ] THIS PHYSICIAN QUERY FORM IS A PERMANENT PART OF THE MEDICAL RECORD GARRISON SEAY Feb 27, 2019 12:04 ANETTE PRYOR MD Mar 02, 2019 14:29 POS
[2019-02-27] MEDS ORDERED: ONDANSETRON 4 MG (ZOFRAN) ORAL DISSOLVE TAB PO PRN (16:45)
[2019-02-27] MEDS ORDERED: ANTACID SUSP 30 ML UDC (MYLANTA) PO PRN (16:45)
[2019-02-27] MEDS ORDERED: ACETAMINOPHEN 325 MG TABLET PO PRN (16:45)
[2019-02-27] MEDS: FENOFIBRATE 160 MG TAB PO SCH (20:51)
[2019-02-27] MEDS: POLYETHYLENE GLYCOL 17 GM (MIRALAX) PACK PO PRN (20:58)
[2019-02-27] MEDS: MELATONIN 3 MG TABLET PO PRN (20:58)
--- NOTE | 2019-02-27 23:42 | NUR ---
2057 PT REQUESTED IRMA RAMESH-PT STATES THAT HE FEELS LIKE HE IS STARTING TO BECOME CONSTIPATED-SEE MAR
[2019-02-28] VITALS: BP_SYST 115; BP_SYST 155; BP_DIAS 66; BP_DIAS 72
--- NOTE | 2019-02-28 | NUR ---
pt doing overnight O2 qualification study
[2019-02-28] MEDS: RT-ALBUTEROL/IPRATROPIUM 3 ML (DUONEB) VIAL INH SCH ×4 (01:07→21:25)
[2019-02-28 04:53] VITALS: BP 106/59
[2019-02-28 06:45] LABS: BASOPHILS % (AUTO) 0 % (0-10); EOSINOPHILS # (AUTO) 0.1 10^3/uL (0.0-0.3); EOSINOPHILS % (AUTO) 1 % (0-10); HEMATOCRIT 32 % (40-54); LYMPHOCYTES # (AUTO) 0.5 X 10^3 (1.0-4.0); LYMPHOCYTES % (AUTO) 6 % (12-44); MEAN CORPUSCULAR HEMOGLOBIN 32 PG (25-34); MEAN CORPUSCULAR HGB CONC 32 G/DL (32-36); MEAN CORPUSCULAR VOLUME 102 FL (80-99); MEAN PLATELET VOLUME 10.5 FL (7.4-10.4); MONOCYTES # (AUTO) 1.4 X 10^3 (0.0-1.0); MONOCYTES % (AUTO) 15 % (0-12); NEUTROPHILS # (AUTO) 7.1 X 10^3 (1.8-7.8); NEUTROPHILS % (AUTO) 78 % (42-75); PLATELET COUNT 199 10^3/uL (130-400); RED CELL DISTRIBUTION WIDTH 14.9 % (10.0-14.5); WHITE BLOOD COUNT 9.1 10^3/uL (4.3-11.0)
--- NOTE | 2019-02-28 06:48 | Pulmonary Progress Note ---
Subjective Time Seen by a Provider: 06:46 Subjective/Events-last exam Pt states he is coughing up blood. Overnight ox results pending Sepsis Event Evaluation Height, Weight, BMI Height: 5'68.00" Weight: 165lbs. 5.0oz. 79.886630fx; 27.39 BMI Method:Stated Focused Exam Lactate Level 02/26/19 09:17: Lactic Acid Level 1.28 Exam Exam Vital Signs Date Time Temp Pulse Resp B/P (MAP) Pulse Ox O2 Delivery O2 Flow Rate FiO2 02/28/19 04:53 36.9 79 18 106/59 (75) 86 Room Air 02/28/19 01:05 90 Room Air 02/28/19 00:00 36.4 83 20 115/66 (82) 90 Room Air 02/27/19 21:40 90 Room Air 02/27/19 20:49 82 126/70 (88) 02/27/19 20:40 Room Air 02/27/19 19:30 37.1 85 20 118/69 (85) 93 Room Air 02/27/19 16:27 36.6 86 20 122/67 (85) 94 Room Air 02/27/19 15:39 89 Room Air 02/27/19 12:00 36.9 79 22 118/68 (85) 97 Nasal Cannula 3.00 02/27/19 11:17 84 20 95 02/27/19 08:00 36.9 97 22 122/76 (91) 96 Nasal Cannula 3.00 02/27/19 06:54 90 Room Air I & O 02/28/19 06:59 Intake Total 1420 ml Output Total 300 ml Balance 1120 ml Height & Weight Height: 5'68.00" Weight: 165lbs. 5.0oz. 79.238477ko; 27.39 BMI Method:Stated General Appearance: No Apparent Distress, WD/WN HEENT: PERRL/EOMI, Pharynx Normal, Other (wearing nasal cannula) Neck: Normal Inspection, Supple Respiratory: Lungs Clear, Normal Breath Sounds, No Respiratory Distress Cardiovascular: Regular Rate, Rhythm, No Edema, No Murmur Capillary Refill: Less Than 3 Seconds Extremity: Normal Inspection, Non Tender, No Pedal Edema Neurologic/Psychiatric: Alert, Oriented x3, No Motor/Sensory Deficits, Normal Mood/Affect Skin: Normal Color, Warm/Dry Lymphatic: No Adenopathy Results Lab Laboratory Tests 02/27/19 05:25 Assessment/Plan Assessment/Plan Acute PNA with leukocytosis -PT was switched to Levaquin PO yesterday. -Labs this AM pending -[place] cultures Recently Dx acute PE with hemoptysis -change Xarelto to hep gtt and repeat CXR -Secondary to renal failure pt will probably need Coumadin Nocturnal hypoxia -Overnight ox results pending YAZMIN JONES DO Feb 28, 2019 06:48 POS
[2019-02-28 07:07] LABS: CREATININE SERUM 1.79 MG/DL (0.60-1.30); MAGNESIUM 2.1 MG/DL (1.6-2.4); PHOSPHORUS 2.8 MG/DL (2.3-4.7); POTASSIUM 4.3 MMOL/L (3.6-5.0)
[2019-02-28 08:00] VITALS: BP 111/76
[2019-02-28] MEDS: DRONEDARONE TABLET 400 MG TABLET PO SCH ×2 (08:52→21:17)
[2019-02-28] MEDS: POLYETHYLENE GLYCOL 17 GM (MIRALAX) PACK PO PRN (08:58)
--- NOTE | 2019-02-28 09:05 | Diagnostic Imaging Report ---
INDICATION: Shortness of breath. TIME OF EXAM: 8:29 AM Correlation is made with prior chest from 02/26/2019. FINDINGS: Cardiac monitoring device overlies the left chest. The heart size is normal. Lungs are clear. Pulmonary vascularity is normal. No infiltrate, effusion or pneumothorax is detected. There are postop changes left shoulder reverse arthroplasty. IMPRESSION: No acute cardiopulmonary process is detected. Dictated by: Dictated on workstation # [id number]
--- NOTE | 2019-02-28 09:25 | Physical Therapy Daily Note ---
PT Daily Note-Current Subjective pt in chair pre tx. pt agrees to PT this morning and denies any pain at this time. Appearance pt in chair post tx with phone, call light, tray table, and FWW in reach with all needs met at this time. Mental Status Patient Orientation: Person, Place, Time, Situation Transfers SCALE: Activities may be completed with or without assistive devices. 5-Gzmonyqpel-utjxkmg completes the activity by him/herself with no assistance from a helper. 5-Set-up or Clean-up Assistance-helper sets up or cleans up; patient completes activity. [place] assists only prior to or following the activity. 4-Supervision or Touching Assistance-helper provides verbal cues and/or touching/steadying and/or contact guard assistance as patient completes activi ty. Assistance may be provided throughout the activity or intermittently. 3-Partial/Moderate Assistance-helper does LESS THAN HALF the effort. [place] lifts, holds or supports trunk or limbs, but provides less than half the effort. 2-Substantial/Maximal Assistance-helper does MORE THAN HALF the effort. [place] lifts or holds trunk or limbs and provides more than half the effort. 9-Nxygikztq-dmxtea does ALL the effort. Patient does none of the effort to complete the activity. Or, the assistance of 2 or more helpers is required for the patient to complete the activity. If activity was not attempted, code reason: 7-Patient Refused. 9-Not Applicable-not attempted and the patient did not perform the activity before the current illness, exacerbation or injury. 10-Not Attempted due to Environmental Limitations-(lack of equipment, weather restraints, etc.). 88-Not Attempted due to Medical Conditions or Safety Concerns. Sit to Stand (QC): 6 Weight Bearing Right Lower Extremity: Right Weight Bearing/Tolerated Left Lower Extremity: Left Weight Bearing/Tolerated Gait Training Distance: 600' Walk 10 feet (QC): 6 Walk 50 ft with 2 Turns(QC): 6 Walk 150 ft (QC): 6 Gait Assistive Device: None Pt ambulated without AD and used shorter choppy steps without any LOB. Wheelchair Training Does the Pt Use a Wheelchair?: No Exercises Seated Therapy Exercises: Ankle pumps, Long arc quads Seated Reps: 15 Treatments Pt performed skilled ambulation, and functional LE strengthening this date. Assessment Current Status: Good Progress Pt ambulated 600' without AD this date. Pt with decreased stride length without any LOB. Pt took 1 standing rest break for 15 sec to catch breath and continued walking. Pt reports he can walk further with the FWW but only uses the walker for long distances. Patient is now walking independently without an assistive device and will be discharged from PT at this time. Patient encouraged to ambulate in the hallway several times a day on his own. PT Long-Term Goals Real Estate Rep Goals PT Long-Term Goals Time Frame: Mar 06, 2019 Sit to Lying (QC): 6 Lying-Sitting on Side/Bed(QC): 6 Sit to Stand (QC): 6 Roll Left to Right (QC): 6 Chair/Qpb-wj-Jzodd Xfer(QC): 6 Car Transfer (QC): 6 Does the Patient Walk: Yes Distance: 800' Walk 10 feet (QC): 6 Walk 10ft-Uneven Surface(QC): 6 Walk 50ft with 2 Turns (QC): 6 Walk 150 ft (QC): 6 Gait Assistive Device: FWW PT Plan Problem List Problem List: Activity Tolerance, Functional Strength, Safety, Balance, Gait, Transfer Treatment/Plan Treatment Plan: Discontinue PT, goals met Treatment Plan: Bed Mobility, Education, Functional Activity Rudolph, Functional Strength, Gait, Safety, Therapeutic Exercise, Transfers Pt has met all goals at this time except for the ambulation distance but is ambulating without AD at this time. Treatment Duration: Mar 06, 2019 Frequency: 5 times per week Estimated Hrs Per Day: .25 hour per day Patient and/or Family Agrees t: Yes Safety Risks/Education Patient Education: Gait Training, Transfer Techniques, Correct Positioning, Safety Issues Teaching Recipient: Patient Teaching Methods: Demonstration, Discussion Response to Teaching: Verbalize Understanding, Return Demonstration Discharge Recommendations Plan discharge Time/GCodes Time In: 843 Time Out: 856 Total Billed Treatment Time: 13 Total Billed Treatment 1 visit GT 13Rene LAURAHUGO SCHWARTZIS PT Feb 28, 2019 09:24 POS
[2019-02-28] MEDS ORDERED: HEParin 1000 UNIT/ML (10ML VIAL) FOR BOLUS IV SCH (09:45)
--- NOTE | 2019-02-28 10:44 | Occupational Ther Daily Note ---
OT Current Status-Daily Note Subjective Pt alert, sitting in recliner. Pt agrees to therapy. Pt is worried about medications, nrsg checking and letting pt know. No c/o pain. Mental Status/Objective Patient Orientation: Person, Place, Time, Situation Attachments: IV ADL-Treatment Pt stated that he has already cleaned up, shaved and used restroom before RIVERO entered room. Therapy Code Descriptions/Definitions Functional [place] Measure: 0=Not Assessed/NA 4=Minimal Assistance 1=Total Assistance 5=Supervision or Setup 2=Maximal Assistance 6=Modified [place] 3=Moderate Assistance 7=Complete IndependenceSCALE: Activities may be completed with or without assistive devices. 0-Usfiucuarb-pgloxck completes the activity by him/herself with no assistance from a helper. 5-Set-up or Clean-up Assistance-helper sets up or cleans up; patient completes activity. [place] assists only prior to or following the activity. 4-Supervision or Touching Assistance-helper provides verbal cues and/or touching/steadying and/or contact guard assistance as patient completes activity. Assistance may be provided throughout the activity or intermittently. 3-Partial/Moderate Assistance-helper does LESS THAN HALF the effort. [place] lifts, holds or supports trunk or limbs, but provides less than half the effort. 2-Substantial/Maximal Assistance-helper does MORE THAN HALF the effort. [place] lifts or holds trunk or limbs and provides more than half the effort. 7-Ixcvnmaxn-pffzha does ALL the effort. Patient does none of the effort to complete the activity. Or, the assistance of 2 or more helpers is required for the patient to complete the activity. If activity was not attempted, code reason: 7-Patient Refused. 9-Not Applicable-not attempted and the patient did not perform the activity before the current illness, exacerbation or injury. 10-Not Attempted due to Environmental Limitations-(lack of equipment, weather restraints, etc.). 88-Not Attempted due to Medical Conditions or Safety Concerns. Other Treatment Pt completed UE exercises against gravity to increase strength and activity tolerance for daily functional tasks. Pt able to complete 3 exercises 2 sets 10 reps with L UE before fatigue, 3 exercises 2 sets 5 reps with R UE before fatigue and increased pain from previous shldr injury. After therapy, pt sitting in recliner with call light/phone in reach. All needs met in room. OT Short Term Goals Short Term Goals 1=Demonstrate adherence to instructed precautions during ADL tasks. 2=Patient will verbalize/demonstrate understanding of assistive devices/modifications for ADL. 3=Patient will improve strength/tolerance for activity to enable patient to perform ADL's. OT Boilermaker [place] Goals Half-Way Goals Time Frame: Mar 14, 2019 Eating (QC): 6 Oral Hygiene (QC): 6 Shower/Bathe Self (QC): 6 Upper Body Dressing (QC): 6 Lower Body Dressing (QC): 6 On/Off Footwear (QC): 6 Toileting Hygiene (QC): 6 Toilet/Commode Transfer (QC): 6 Additional Goals: 1-Demonstrate ADL Tasks, 2-Verbalize Understanding, 3- ImproveStrength/Rudolph 1=Demonstrate adherence to instructed precautions during ADL tasks. 2=Patient will verbalize/demonstrate understanding of assistive devices/m odifications for ADL. 3=Patient will improve strength/tolerance for activity to enable patient to perform ADL's. OT Education/Plan Problem List/Assessment Assessment: Decreased Activ Tolerance, Decreased UE Strength Pt presents with decreased UE strength, coordination, and activity tolerance impacting his ability to be more independent with ADLs and functional activities. Pt would benefit from skilled OT intervention at this time in order to increase independence and participation in ADLs/ Functional activities. Discharge Recommendations Plan/Recommendations: Continue POC Treatment Plan/Plan of Care Patient would benefit from OT for education, treatment and training to promote independence in ADL's, mobility, safety and/or upper extremity function for ADL's. Plan of Care: ADL Retraining, Functional Mobility, UE Funct Exercise/Act Treatment Duration: Mar 14, 2019 Frequency: 5 times per week Estimated Hrs Per Day: .25 hour per day Agreement: Yes Rehab Potential: Good Time/GCodes Start Time: 09:27 Stop Time: 09:37 Total Time Billed (hr/min): 10 Billed Treatment Time 1 visit-EX 1 (10 min) DIONY EDWARDS Feb 28, 2019 10:44 POS
[2019-02-28 11:11] LABS: INR 3.2 (0.8-1.4); PROTHROMBIN TIME PATIENT 34.4 SEC (12.2-14.7)
[2019-02-28 12:00] VITALS: BP 130/80
[2019-02-28] MEDS: warFARin 5 MG (COUMADIN) TAB PO SCH (12:33)
[2019-02-28] MEDS: HEParin DRIP 25000 UNIT/500ML 500 ML IV SCH (13:48)
--- NOTE | 2019-02-28 14:07 | Progress Note - Hospitalist ---
Subjective HPI/CC On Admission Date Seen by Provider: Feb 28, 2019 Time Seen by Provider: 09:30 shortness of breath Subjective/Events-last exam He reports continued cough. He feels like his shortness of breath is better. He reports having a bloody nose. He tells me that this has been going on for about a week. He sees it on tissue when he wipes his nose. He says it is also draining down his throat and he is coughing it up. He denies any hematemesis, hematochezia, melena, or hematuria. He denies fevers and chills. He has no other complaints or concerns. Focused Exam Lactate Level 02/26/19 09:17: Lactic Acid Level 1.28 Objective Exam Vital Signs Vital Signs Date Time Temp Pulse Resp B/P (MAP) Pulse Ox O2 Delivery O2 Flow Rate FiO2 02/28/19 12:00 37.0 85 18 130/80 (97) 94 Room Air 02/27/19 12:00 3.00 02/26/19 11:59 28 Capillary Refill : Less Than 3 SecondsLess Than 3 Seconds General Appearance: No Apparent Distress, WD/WN HEENT: PERRL/EOMI, Other (bloody nares) Neck: Normal Inspection, Supple Respiratory: Lungs Clear, Normal Breath Sounds, No Respiratory Distress Cardiovascular: Regular Rate, Rhythm, No Edema, No Murmur Gastrointestinal: Normal Bowel Sounds, Non Tender, Soft Extremity: Normal Inspection, Non Tender, No Pedal Edema Neurologic/Psychiatric: Alert, Oriented x3, No Motor/Sensory Deficits, Normal Mood/Affect Skin: Normal Color, Warm/Dry Lymphatic: No Adenopathy Results/Procedures Lab Laboratory Tests 02/28/19 06:03 Patient resulted labs reviewed. Assessment/Plan Assessment and Plan Assess & Plan/Chief Complaint DVT PE Epistaxis -Discontinue Xarelto -Begin Heparin gtt -Begin coumadin, pharmacy to assist with dosing Acute respiratory failure with hypoxia Community acquired pneumonia -Continue Levaquin Likely JOSE -Overnight trend ox showed desaturations -Continue oxygen at night CKD -Cr 1.79, appears to be at or near baseline -Continue to monitor HLD -Continue fenofibrate Paroxysmal atrial fibrillation -Continue dronedarone -Stop Xarelto -Begin heparin and coumadin Diagnosis/Problems Diagnosis/Problems (1) Acute respiratory failure with hypoxemia Status: Acute (2) Community acquired pneumonia Status: Acute (3) Sepsis due to pneumonia Status: Acute (4) HLD (hyperlipidemia) Status: Chronic (5) DVT (deep venous thrombosis) Status: Acute (6) Pulmonary embolism Status: Acute Qualifiers: Pulmonary embolism type: unspecified Chronicity: acute Acute cor pulmonale presence: unspecified Qualified Codes: I26.99 - Other pulmonary embolism without acute cor pulmonale (7) Atrial fibrillation Status: Chronic Qualifiers: Atrial fibrillation type: paroxysmal Qualified Codes: I48.0 - Paroxysmal atrial fibrillation (8) CKD (chronic kidney disease) stage 3, GFR 30-59 ml/min Status: Chronic (9) Epistaxis Status: Acute Clinical Quality Measures DVT/VTE Risk/Contraindication: Risk Factor Score Per Nursin RFS Level Per Nursing on Admit: 4+=Very High ANETTE PAINTER MD Feb 28, 2019 14:07 POS
[2019-02-28 16:00] VITALS: BP 116/74
--- NOTE | 2019-02-28 18:30 | NUR ---
aPTT FOR 1750 CAME BACK 109 IN THE THERAPEUTIC RANGE. NO BOLUS OR RATE CHANGE AT THIS TIME.
[2019-02-28 20:00] VITALS: BP 119/66
[2019-02-28] MEDS: MELATONIN 3 MG TABLET PO PRN (21:18)
[2019-02-28] MEDS: FENOFIBRATE 160 MG TAB PO SCH (21:18)
[2019-03-01 00:12] VITALS: BP 109/59
[2019-03-01] MEDS: RT-ALBUTEROL/IPRATROPIUM 3 ML (DUONEB) VIAL INH SCH ×2 (03:50→07:33)
[2019-03-01 04:16] VITALS: BP 119/64
--- NOTE | 2019-03-01 06:05 | Pulmonary Progress Note ---
Subjective Time Seen by a Provider: 08:32 Subjective/Events-last exam Pt states he was coughing up a little bit of blood yesterday however he has been having nasal bleeds too. Sepsis Event Evaluation Height, Weight, BMI Height: 5'68.00" Weight: 165lbs. 5.0oz. 79.602242ps; 27.39 BMI Method:Stated Focused Exam Lactate Level 02/26/19 09:17: Lactic Acid Level 1.28 Exam Exam Vital Signs Date Time Temp Pulse Resp B/P (MAP) Pulse Ox O2 Delivery O2 Flow Rate FiO2 03/01/19 04:16 37.2 75 16 119/64 (82) 93 Room Air 03/01/19 00:12 37.3 82 18 109/59 (76) 94 Room Air 02/28/19 21:22 92 Room Air 02/28/19 20:00 Room Air 02/28/19 20:00 36.8 78 18 119/66 (83) 94 Room Air 02/28/19 16:00 37.2 81 18 116/74 (88) 95 Room Air 02/28/19 12:00 37.0 85 18 130/80 (97) 94 Room Air 02/28/19 09:44 92 Room Air 02/28/19 08:00 Room Air 02/28/19 08:00 36.7 65 18 111/76 (88) 91 Room Air I & O 03/01/19 07:00 Intake Total 1460 ml Output Total 600 ml Balance 860 ml Height & Weight Height: 5'68.00" Weight: 165lbs. 5.0oz. 79.333727ot; 27.39 BMI Method:Stated General Appearance: No Apparent Distress, WD/WN HEENT: PERRL/EOMI, Pharynx Normal, Other (wearing nasal cannula) Neck: Normal Inspection, Supple Respiratory: Lungs Clear, Normal Breath Sounds, No Respiratory Distress Cardiovascular: Regular Rate, Rhythm, No Edema, No Murmur Capillary Refill: Less Than 3 Seconds Extremity: Normal Inspection, Non Tender, No Pedal Edema Neurologic/Psychiatric: Alert, Oriented x3, No Motor/Sensory Deficits, Normal Mood/Affect Skin: Normal Color, Warm/Dry Lymphatic: No Adenopathy Results Lab Laboratory Tests 02/28/19 06:03 Assessment/Plan Assessment/Plan Acute PNA with leukocytosis -Levaquin x total Abx 5-7days then D/C -[place] cultures Recently Dx acute PE with hemoptysis - probably from nasal bleeding -CXR is clear. Hb is stable -change Xarelto to Coumadin secondary to age, renal function, and [place] Nocturnal hypoxia -Overnight ox results pending -If pt was <89% for 5min we should be able to get him nocturnal oxygen. YAZMIN JONES DO Mar 01, 2019 06:05 POS
[2019-03-01 06:54] LABS: BASOPHILS % (AUTO) 0 % (0-10); EOSINOPHILS # (AUTO) 0.1 10^3/uL (0.0-0.3); EOSINOPHILS % (AUTO) 1 % (0-10); HEMATOCRIT 31 % (40-54); HEMOGLOBIN 9.9 G/DL (13.3-17.7); LYMPHOCYTES # (AUTO) 0.6 X 10^3 (1.0-4.0); LYMPHOCYTES % (AUTO) 10 % (12-44); MEAN CORPUSCULAR HEMOGLOBIN 32 PG (25-34); MEAN CORPUSCULAR HGB CONC 32 G/DL (32-36); MEAN CORPUSCULAR VOLUME 101 FL (80-99); MEAN PLATELET VOLUME 10.6 FL (7.4-10.4); MONOCYTES # (AUTO) 1.1 X 10^3 (0.0-1.0); MONOCYTES % (AUTO) 17 % (0-12); NEUTROPHILS # (AUTO) 4.6 X 10^3 (1.8-7.8); NEUTROPHILS % (AUTO) 72 % (42-75); PLATELET COUNT 213 10^3/uL (130-400); RED CELL DISTRIBUTION WIDTH 14.5 % (10.0-14.5); WHITE BLOOD COUNT 6.4 10^3/uL (4.3-11.0)
[2019-03-01 07:24] LABS: INR 1.4 (0.8-1.4); PROTHROMBIN TIME PATIENT 17.4 SEC (12.2-14.7)
[2019-03-01 07:25] LABS: CALCIUM 9.3 MG/DL (8.5-10.1); CREATININE SERUM 1.78 MG/DL (0.60-1.30); MAGNESIUM 2.1 MG/DL (1.6-2.4); PHOSPHORUS 2.9 MG/DL (2.3-4.7); POTASSIUM 4.5 MMOL/L (3.6-5.0)
[2019-03-01 08:01] VITALS: BP 122/57
[2019-03-01 08:25] VITALS: BP 122/57
[2019-03-01] MEDS: DRONEDARONE TABLET 400 MG TABLET PO SCH (09:30)
[2019-03-01] MEDS: warFARin 5 MG (COUMADIN) TAB PO SCH (09:30)
--- NOTE | 2019-03-01 10:16 | Progress Note - Hospitalist ---
Subjective HPI/CC On Admission Date Seen by Provider: Mar 01, 2019 Time Seen by Provider: 09:15 shortness of breath Subjective/Events-last exam He reports coughing up green phlegm. He has not had any more nose bleeding. He denies dyspnea. He denies fevers, chest pain, abdominal pain, nausea, vomiting. Objective Exam Vital Signs Vital Signs Date Time Temp Pulse Resp B/P (MAP) Pulse Ox O2 Delivery O2 Flow Rate FiO2 03/01/19 08:25 36.8 87 94 03/01/19 08:01 18 122/57 (78) Room Air 02/27/19 12:00 3.00 02/26/19 11:59 28 Capillary Refill : Less Than 3 SecondsLess Than 3 Seconds General Appearance: No Apparent Distress, WD/WN HEENT: PERRL/EOMI, Pharynx Normal Neck: Normal Inspection, Supple Respiratory: Lungs Clear, Normal Breath Sounds, No Respiratory Distress Cardiovascular: Regular Rate, Rhythm, No Edema, No Murmur Gastrointestinal: Normal Bowel Sounds, Non Tender, Soft Extremity: Normal Inspection, Non Tender, Pedal Edema Neurologic/Psychiatric: Alert, Oriented x3, No Motor/Sensory Deficits, Normal Mood/Affect Skin: Normal Color, Warm/Dry Lymphatic: No Adenopathy Results/Procedures Lab Laboratory Tests 03/01/19 05:35 Patient resulted labs reviewed. Assessment/Plan Assessment and Plan Assess & Plan/Chief Complaint DVT PE Epistaxis, resolved -Continue Heparin gtt -Continue coumadin, pharmacy assisting Acute respiratory failure with hypoxia Community acquired pneumonia -Continue Levaquin Likely JOSE -Overnight trend ox showed desaturations -Continue oxygen at night CKD -Cr 1.78, appears to be at or near baseline -Continue to monitor HLD -Continue fenofibrate Paroxysmal atrial fibrillation -Continue dronedarone -Continue heparin and coumadin Diagnosis/Problems Diagnosis/Problems (1) Acute respiratory failure with hypoxemia Status: Acute (2) Community acquired pneumonia Status: Acute (3) Sepsis due to pneumonia Status: Resolved Resolution Date/Time: 03/01/19 @ 10:24 (4) HLD (hyperlipidemia) Status: Chronic (5) DVT (deep venous thrombosis) Status: Acute (6) Pulmonary embolism Status: Acute Qualifiers: Pulmonary embolism type: unspecified Chronicity: acute Acute cor pul monale presence: unspecified Qualified Codes: I26.99 - Other pulmonary embolism without acute cor pulmonale (7) Atrial fibrillation Status: Chronic Qualifiers: Atrial fibrillation type: paroxysmal Qualified Codes: I48.0 - Paroxysmal atrial fibrillation (8) CKD (chronic kidney disease) stage 3, GFR 30-59 ml/min Status: Chronic (9) Epistaxis Status: Resolved Resolution Date/Time: 03/01/19 @ 10:24 Clinical Quality Measures DVT/VTE Risk/Contraindication: Risk Factor Score Per Nursin RFS Level Per Nursing on Admit: 4+=Very High ANETTE PAINTER MD Mar 01, 2019 10:16 POS
[2019-03-01] MEDS: HEParin DRIP 25000 UNIT/500ML 500 ML IV SCH (10:48)
[2019-03-01] MEDS ORDERED: LEVOFLOXACIN 750 MG TAB (LEVAQUIN) PO SCH (11:00)
[2019-03-01 11:30] VITALS: BP 133/80
--- NOTE | 2019-03-01 11:44 | Occupational Ther Daily Note ---
OT Current Status-Daily Note Subjective Pt alert, sitting in recliner. Pt agrees to therapy. No c/o pain. Mental Status/Objective Patient Orientation: Person, Place, Time, Situation Attachments: IV ADL-Treatment Pt declined ADLs, stating that he had already completed his ADLs. Therapy Code Descriptions/Definitions Functional [place] Measure: 0=Not Assessed/NA 4=Minimal Assistance 1=Total Assistance 5=Supervision or Setup 2=Maximal Assistance 6=Modified [place] 3=Moderate Assistance 7=Complete IndependenceSCALE: Activities may be completed with or without assistive devices. 3-Lzeubefngg-hsqrnvt completes the activity by him/herself with no assistance from a helper. 5-Set-up or Clean-up Assistance-helper sets up or cleans up; patient completes activity. [place] assists only prior to or following the activity. 4-Supervision or Touching Assistance-helper provides verbal cues and/or touching/steadying and/or contact guard assistance as patient completes activity. Assistance may be provided throughout the activity or intermittently. 3-Partial/Moderate Assistance-helper does LESS THAN HALF the effort. [place] lifts, holds or supports trunk or limbs, but provides less than half the effort. 2-Substantial/Maximal Assistance-helper does MORE THAN HALF the effort. [place] lifts or holds trunk or limbs and provides more than half the effort. 8-Xyxoqlfcy-dbbirq does ALL the effort. Patient does none of the effort to compl ete the activity. Or, the assistance of 2 or more helpers is required for the patient to complete the activity. If activity was not attempted, code reason: 7-Patient Refused. 9-Not Applicable-not attempted and the patient did not perform the activity before the current illness, exacerbation or injury. 10-Not Attempted due to Environmental Limitations-(lack of equipment, weather restraints, etc.). 88-Not Attempted due to Medical Conditions or Safety Concerns. Other Treatment Pt able to complete 5 UE medium theraband exercises, 1 set 20 reps using L UE. Due to decreased mobility and increased pain of R shldr pt unable to complete full ROM and multiple reps, only 5-10 of each exercise. Skills of therapist needed to modify exercises, instruct on correct technique and monitor pain level of R shldr. After therapy, pt sitting in recliner with call light/phone in reach. Theraband left in room. All needs met in room. OT Short Term Goals Short Term Goals 1=Demonstrate adherence to instructed precautions during ADL tasks. 2=Patient will verbalize/demonstrate understanding of assistive devices/modifications for ADL. 3=Patient will improve strength/tolerance for activity to enable patient to perform ADL's. OT Rotary Engine Assembler Goals Rotary Engine Assembler Goals Time Frame: Mar 14, 2019 Eating (QC): 6 Oral Hygiene (QC): 6 Shower/Bathe Self (QC): 6 Upper Body Dressing (QC): 6 Lower Body Dressing (QC): 6 On/Off Footwear (QC): 6 Toileting Hygiene (QC): 6 Toilet/Commode Transfer (QC): 6 Additional Goals: 1-Demonstrate ADL Tasks, 2-Verbalize Understanding, 3- ImproveStrength/Rudolph 1=Demonstrate adherence to instructed precautions during ADL tasks. 2=Patient will verbalize/demonstrate understanding of assistive devices/modifications for ADL. 3=Patient will improve strength/tolerance for activity to enable patient to perform ADL's. OT Education/Plan Problem List/Assessment Assessment: Decreased UE Strength Pt presents with decreased UE strength, coordination, and activity tolerance impacting his ability to be more independent with ADLs and functional activities. Pt would benefit from skilled OT intervention at this time in order to increase independence and participation in ADLs/ Functional activities. Discharge Recommendations Plan/Recommendations: Continue POC Treatment Plan/Plan of Care Patient would benefit from OT for education, treatment and training to promote independence in ADL's, mobility, safety and/or upper extremity function for ADL's. Plan of Care: ADL Retraining, Functional Mobility, UE Funct Exercise/Act Treatment Duration: Mar 14, 2019 Frequency: 5 times per week Estimated Hrs Per Day: .25 hour per day Agreement: Yes Rehab Potential: Good Time/GCodes Start Time: 10:45 Stop Time: 10:58 Total Time Billed (hr/min): 13 Billed Treatment Time 1 visit-EX 1 (13 min) DIONY EDWARDS Mar 01, 2019 11:44 POS
--- NOTE | 2019-03-01 12:55 | NUR ---
Swing Bed Note: Qualifies for swing bed for continued need of IV heparin gtt with adjusting of heparin gtt et coumadin for known (Pulmonary Embolism et DVT). He was not able to tolerate his prescribed Xarelto d/t his renal function. He will need to continue at the hospital with skilled intervention of monitoring his labs et adjusting his medications daily for therapeutic intervention. Anticipate that he will admit to swing bed today 03/01/19. Updated his primary care nurse et spoke with patient about the transition.
--- NOTE | 2019-03-01 13:47 | Discharge Summary ---
Discharge Summary Hospital Course Was the Problem List Reviewed?: Yes Problems/Dx: (1) Acute respiratory failure with hypoxemia Status: Acute (2) Community acquired pneumonia Status: Acute (3) Sepsis due to pneumonia Status: Resolved (4) HLD (hyperlipidemia) Status: Chronic (5) DVT (deep venous thrombosis) Status: Acute (6) Pulmonary embolism Status: Acute Qualifiers: Qualified Codes: I26.99 - Other pulmonary embolism without acute cor pulmonale (7) Atrial fibrillation Status: Chronic Qualifiers: Qualified Codes: I48.0 - Paroxysmal atrial fibrillation (8) CKD (chronic kidney disease) stage 3, GFR 30-59 ml/min Status: Chronic (9) Epistaxis Status: Resolved Hospital Course Date of Admission: Feb 26, 2019 at 09:17 Admission Diagnosis : Community acquired pneumonia Family Physician/Provider: Jese Tam MD Date of Discharge: 03/01/19 Discharge Diagnosis: Community acquired pneumonia Hospital Course: Tank Byrne is an 89yoM with PMH recently diagnosed DVT/PE and was started on Xarelto who presented with dyspnea and was admitted with community acquired pneumonia. He was treated with Cefepime and Azithromycin initially and then transitioned to oral Levaquin. He had issues with nose bleeds and it was determined that with his renal function he should not be treated with Xarelto and so he was transitioned to Heparin drip to bridge to coumadin therapy. He was discharged to swing bed. Labs and Pending Lab Test: Laboratory Tests 02/28/19 13:50: Activated Partial Thromboplast Time 41H 02/28/19 18:00: Activated Partial Thromboplast Time 109H 03/01/19 00:30: Activated Partial Thromboplast Time 87H 03/01/19 05:35: Activated Partial Thromboplast Time 73H, White Blood Count 6.4, Red Blood Count 3.06L, Hemoglobin 9.9L, Hematocrit 31L, Mean Corpuscular Volume 101H, Mean Corpuscular Hemoglobin 32, Mean Corpuscular Hemoglobin Concent 32, Red Cell Distribution Width 14.5, Platelet Count 213, Mean Platelet Volume 10.6H, Neutrophils (%) (Auto) 72, Lymphocytes (%) (Auto) 10L, Monocytes (%) (Auto) 17H, Eosinophils (%) (Auto) 1, Basophils (%) (Auto) 0, Neutrophils # (Auto) 4.6, Lymphocytes # (Auto) 0.6L, Monocytes # (Auto) 1.1H, Eosinophils # (Auto) 0.1, Basophils # (Auto) 0.0, Prothrombin Time 17.4H, INR Comment 1.4, Sodium Level 139, Potassium Level 4.5, Chloride Level 105, Carbon Dioxide Level 22, Anion Gap 12, Blood Urea Nitrogen 32H, Creatinine 1.78H, Estimat Glomerular Filtration Ra te 36, BUN/Creatinine Ratio 18, Glucose Level 112H, Calcium Level 9.3, Phosphorus Level 2.9, Magnesium Level 2.1 Microbiology 02/26/19 Blood Culture - Preliminary, Resulted No growth 02/26/19 Influenza Types A,B Antigen (EDY) - Final, Complete Home Meds Active Reported Xarelto (Rivaroxaban) 15 Mg Tablet 15 Mg PO BID Diclofenac Sodium 100 Gm Gel..gram. TOP HS APPLY TO HANDS Multaq (Dronedarone HCl) 400 Mg Tablet 400 Mg PO BID Tylenol Arthritis (Acetaminophen) 650 Mg Tablet.er 650 Mg PO TID PRN Vitamin B-12 (Cyanocobalamin (Vitamin B-12)) 500 Mcg Tablet 500 Mcg PO 1200 Folic Acid 0.4 Mg Tablet 0.4 Mg PO 1200 Vitamin D3 (Cholecalciferol (Vitamin D3)) 2,000 Unit Capsule 2,000 Unit PO 1200 Calcium 500 + D Tablet (Calcium Carbonate/Vitamin D3) 1 Each Tablet 1 Tab PO 1200 Magnesium (Magnesium Oxide) 400 Mg Capsule 400 Mg PO 1200 Selina-C 1,000 mg Tablet (Ascorbate Calcium/Bioflavonoid) 1 Each Tablet 1,000 Mg PO 1200 One Daily For Men 50+ Adv Tab (Mv,Minerals/FA/Lycopene/Ginkgo) 1 Each Tablet 1 Tab PO 1200 Omeprazole 20 Mg Capsule.dr 20 Mg PO DAILY PRN Metoprolol Succinate 25 Mg Tab.er.24h 25 Mg PO HS Fenofibrate 160 Mg Tablet 160 Mg PO HS Assessment/Pt Instructions Take medications as prescribed. Discharge Planning: >30 minutes discharge planning Discharge Instructions Discharge Diet: Coumadin Patient Diet Activity as Tolerated: Yes Consultations Pulmonology Discharge Physical Examination Vital Signs Vital Signs Date Time Temp Pulse Resp B/P (MAP) Pulse Ox O2 Delivery O2 Flow Rate FiO2 03/01/19 11:30 36.7 80 18 133/80 (97) 96 Room Air 02/27/19 12:00 3.00 02/26/19 11:59 28 General Appearance: No Apparent Distress, WD/WN Respiratory: Lungs Clear, Normal Breath Sounds, No Respiratory Distress Cardiovascular: Regular Rate, Rhythm, No Edema, No Murmur Gastrointestinal: Normal Bowel Sounds, Non Tender, Soft Extremity: Normal Inspection, Non Tender, No Pedal Edema Skin: Normal Color, Warm/Dry Neurologic/Psychiatric: Alert, Oriented x3, No Motor/Sensory Deficits, Normal Mood/Affect Allergies: Coded Allergies: Penicillins (Verified Allergy, Severe, Anaphylaxis (pt tolerates Ceftriaxone), 02/26/19) iodine (Verified Allergy, Unknown, 02/26/19) Uncoded Allergies: SURGICAL GLUE (Allergy, Severe, "TOOK OFF SKIN", 06/04/17) Discharge Summary Date of Admission Feb 26, 2019 at 09:17 Date of Discharge Discharge Date: Mar 01, 2019 Discharge Time: 13:47 Admission Diagnosis Acute respiratory failure with hypoxia due to pneumonia Consults/Procedures Consulations Pulmonology Discharge Diagnosis Community acquired pneumonia, DVT/PE (1) Acute respiratory failure with hypoxemia Status: Acute (2) Community acquired pneumonia Status: Acute (3) Sepsis due to pneumonia Status: Resolved (4) HLD (hyperlipidemia) Status: Chronic (5) DVT (deep venous thrombosis) Status: Acute (6) Pulmonary embolism Status: Acute Qualifiers: Qualified Codes: I26.99 - Other pulmonary embolism without acute cor pulmonale (7) Atrial fibrillation Status: Chronic Qualifiers: Qualified Codes: I48.0 - Paroxysmal atrial fibrillation (8) CKD (chronic kidney disease) stage 3, GFR 30-59 ml/min Status: Chronic (9) Epistaxis Status: Resolved Clinical Quality Measures DVT/VTE Risk/Contraindication: Risk Factor Score Per Nursin RFS Level Per Nursing on Admit: 4+=Very High ANETTE PAINTER MD Mar 01, 2019 13:47 POS
[2019-03-15] MEDS ORDERED: RIVAROXABAN 20 MG TABLET (XARELTO) PO SCH (17:00)
== END 2019-03-01 13:50 | disposition swing bed (61) | DRG 871 ==
LOC: EDUNIT# 03:33 → ER 03:35 → 4TH 09:17
PROVIDERS: ADMIT Internal Medicine; ATTEND Internal Medicine
DX: A41.9 Sepsis, unspecified organism (principal); R65.20 Severe sepsis without septic shock; J18.1 Lobar pneumonia, unspecified organism; J96.01 Acute respiratory failure with hypoxia; J98.11 Atelectasis; I26.99 Other pulmonary embolism without acute cor pulmonale; I82.402 Acute embolism and thrombosis of unspecified deep veins of left lower extremity; I12.9 Hypertensive chronic kidney disease with stage 1 through stage 4 chronic kidney disease, or unspecified chronic kidney disease; N18.3 Chronic kidney disease, stage 3 (moderate); N17.9 Acute kidney failure, unspecified; R04.2 Hemoptysis; R04.0 Epistaxis; K20.9 Esophagitis, unspecified; I48.0 Paroxysmal atrial fibrillation; E78.00 Pure hypercholesterolemia, unspecified; G62.9 Polyneuropathy, unspecified; K21.9 Gastro-esophageal reflux disease without esophagitis; K44.9 Diaphragmatic hernia without obstruction or gangrene; N40.0 Benign prostatic hyperplasia without lower urinary tract symptoms; M54.9 Dorsalgia, unspecified; M19.91 Primary osteoarthritis, unspecified site; Z79.01 Long term (current) use of anticoagulants; Z87.11 Personal history of peptic ulcer disease; Z88.0 Allergy status to penicillin
CPT/HCPCS: 36415; 71045; 71046; 71250; 80048; 80053; 81000; 83605; 83735; 83880; 84100; 85007; 85025; 85027; 85610; 85730; 86141; 87040; 87804; 93005; 93041; 94640; 94664; 94760; 94762; 96374

== ENCOUNTER 2019-03-01 13:43 | Inpatient (IN) | payer MEDICARE ==
[~2019-03-01] VITALS: Ht 172.7 cm; Wt 74.8 kg
[~2019-03-01 13:43] MED LIST changes: +RIVA15TA PO
[2019-03-01] MEDS ORDERED: RT-ALBUTEROL/IPRATROPIUM 3 ML (DUONEB) VIAL INH PRN (14:00)
[2019-03-01] MEDS ORDERED: ANTACID SUSP 30 ML UDC (MYLANTA) PO PRN (14:00)
[2019-03-01] MEDS ORDERED: PATIENT MAY USE OWN MEDS, ALL MC SCH (14:00)
[2019-03-01] MEDS ORDERED: PANTOPRAZOLE 20 MG TABLET (PROTONIX) PO PRN (14:00)
[2019-03-01] MEDS ORDERED: CATHETER FLUSH 10 ML SYR IV PRN (14:00)
[2019-03-01] MEDS ORDERED: MELATONIN 3 MG TABLET PO PRN (14:00)
[2019-03-01] MEDS ORDERED: POLYETHYLENE GLYCOL 17 GM (MIRALAX) PACK PO PRN (14:00)
[2019-03-01] MEDS ORDERED: HEParin 1000 UNIT/ML (10ML VIAL) FOR BOLUS IV SCH (14:00)
[2019-03-01] MEDS ORDERED: ACETAMINOPHEN 325 MG TABLET PO PRN (14:00)
[2019-03-01] MEDS ORDERED: ONDANSETRON 4 MG (ZOFRAN) ORAL DISSOLVE TAB PO PRN (14:00)
--- NOTE | 2019-03-01 14:49 | NUR ---
Admission Drug Regimen Review: Date: 03/01/19 Time: 1451 Review Completed, No Issues found
--- NOTE | 2019-03-01 15:01 | Occupational Therapy Eval ---
OT Evaluation-General/PLF Medical Diagnosis Admission Date Mar 01, 2019 at 13:56 Medical Diagnosis: Acute respiratory failure with hypoxenia, DVT, pneumonia Onset Date: Mar 01, 2019 Therapy Diagnosis Therapy Diagnosis: Weakness Height/Weight Height (Feet): 5 Height (Inches): 68.00 Weight (Pounds): 165 Weight (Ounces): 5.0 Weight Bear Status Weight Bearing Restriction: Weight Bearing/Tolerated Referral Physician: Dr. Martines Referral Reason: Activity Tolerance, Self Care, Evaluation/Treatment, Strengthening/ROM Medical History Pertinent Medical History: Atrial Fib, Arthritis, GERD, HTN, Neuropathy, Renal Insufficiency Reviewed History: Yes Social History Home: Single Level Current Living Status: Significant Other ADL-Prior Level of Function SCALE: Activities may be completed with or without assistive devices. 5-Gmptioabkv-qjsgaij completes the activity by him/herself with no assistance from a helper. 5-Set-up or Clean-up Assistance-helper sets up or cleans up; patient completes activity. [place] assists only prior to or following the activity. 4-Supervision or Touching Assistance-helper provides verbal cues and/or touching/steadying and/or contact guard assistance as patient completes activity. Assistance may be provided throughout the activity or intermittently. 3-Partial/Moderate Assistance-helper does LESS THAN HALF the effort. [place] lifts, holds or supports trunk or limbs, but provides less than half the effort. 2-Substantial/Maximal Assistance-helper does MORE THAN HALF the effort. [place] lifts or holds trunk or limbs and provides more than half the effort. 4-Zfnprntxi-vchwrz does ALL the effort. Patient does none of the effort to complete the activity. Or, the assistance of 2 or more helpers is required for the patient to complete the activity. If activity was not attempted, code reason: 7-Patient Refused. 9-Not Applicable-not attempted and the patient did not perform the activity before the current illness, exacerbation or injury. 10-Not Attempted due to Environmental Limitations-(lack of equipment, weather restraints, etc.). 88-Not Attempted due to Medical Conditions or Safety Concerns. ADL PLOF Comments Pt. reports that he was independent with daily tasks. Pt. reports that his spouse has a caregiver that comes everyday to assist her. Pt. states that he is independent with bathing, dressing, driving, and ambulation. Self Care: Independent Functional Cognition: Independent DME/Equipment: Bath Chair, Tub/Shower Drive Self: Yes OT Current Status Subjective No pain reported. Pt. states, "I'm feeling better." Appearance Pt. up in chair. Agrees to work with OT. Mental Status/Objective Patient Orientation: Person, Place, Time, Situation Attachments: IV Current Hand Dominance: Left Upper Extremity ROM WFL ADL-Treatment Eating (QC): 7 Oral Hygiene (QC): 5 (Pt. reports that he already completed this earlier with set up.) Shower/Bathe Self (QC): 7 (Pt. states that he has not had a shower today, but does not want one at this time.) Upper Body Dressing (QC): 5 (Pt. reports that he dressed self earlier with set up.) Lower Body Dressing (QC): 5 On/Off Footwear (QC): 5 Toileting Hygiene (QC): 7 Toilet Transfer (QC): 7 Other Treatments Pt. has completed most ADLs this date already. Reports that he is feeling better. Demonstrates ability to stand from chair with SBA and no walker. Pt. has already completed UE exercises earlier with other OT. Encouraged to do them again. Pt. verbalizes understanding of SWB status and continued evaluation. Due to pt. having already had OT this date for exercises, as well as pt. already dressing self, OT session completed. PT coming in to assess pt. with ambulation. Education OT Patient Education: Correct positioning, Exercise program, Modified ADL techniques, Progress toward Goal/Update tx plan, Purpose of tx/functional activities, Reviewed precautions, Rehab process, Transfer techniques Teaching Recipient: Patient Teaching Methods: Demonstration Response to Teaching: Verbalize Understanding, Return Demonstration OT Short Term Goals Short Term Goals 1=Demonstrate adherence to instructed precautions during ADL tasks. 2=Patient will verbalize/demonstrate understanding of assistive devices/modifications for ADL. 3=Patient will improve strength/tolerance for activity to enable patient to perform ADL's. OT [facility] Goals [employer] Goals Eating (QC): 6 Oral Hygiene (QC): 6 Shower/Bathe Self (QC): 6 Upper Body Dressing (QC): 6 Lower Body Dressing (QC): 6 On/Off Footwear (QC): 6 Toileting Hygiene (QC): 6 Toilet/Commode Transfer (QC): 6 Additional Goals: 1-Demonstrate ADL Tasks, 2-Verbalize Understanding, 3- ImproveStrength/Rudolph 1=Demonstrate adherence to instructed precautions during ADL tasks. 2=Patient will verbalize/demonstrate understanding of assistive devices/modifications for ADL. 3=Patient will improve strength/tolerance for activity to enable patient to perform ADL's. OT Education/Plan Problem List/Assessment Assessment: Decreased Activ Tolerance, Decreased UE Strength, Impaired I ADL's Discharge Recommendations Plan/Recommendations: Continue POC Comment Equipment needs to be determined. Treatment Plan/Plan of Care Treatment,Training & Education: Yes Patient would benefit from OT for education, treatment and training to promote independence in ADL's, mobility, safety and/or upper extremity function for ADL's. Plan of Care: ADL Retraining, Functional Mobility, UE Funct Exercise/Act Treatment Duration: Mar 15, 2019 Frequency: At least 5 of 7 days/Wk (IRF) Estimated Hrs Per Day: 1.5 hours per day Agreement: Yes Rehab Potential: Good Time/GCodes Start Time: 14:35 Stop Time: 14:50 Total Time Billed (hr/min): 15 Billed Treatment Time 1, SYMONE BALDWIN OT Mar 01, 2019 15:01 POS
--- NOTE | 2019-03-01 15:25 | Physical Therapy Evaluation ---
PT Evaluation-General Medical Diagnosis Admission Date Mar 01, 2019 at 13:56 Medical Diagnosis: Acute respiratory failure with hypoxenia, DVT, pneumonia Onset Date: Mar 01, 2019 Therapy Diagnosis Therapy Diagnosis: general debility/weakness Height/Weight Height (Feet): 5 Height (Inches): 68.00 Weight (Pounds): 165 Weight (Ounces): 5.0 Weight Bear Status Right Lower Extremity: Right Weight Bearing/Tolerated Left Lower Extremity: Left Weight Bearing/Tolerated Referral Physician: Dr. Martines Reason for Referral: Evaluation/Treatment Medical History Pertinent Medical History: Atrial Fib, Arthritis, GERD, HTN, Neuropathy, Renal Insufficiency Reviewed History: Yes Social History Home: Single Level Current Living Status: Significant Other Entry Into Home: Stairs With Railing PT Steps Into Home: 2 PT Steps Inside Home: 8 Prior Prior Level of Function SCALE: Activities may be completed with or without assistive devices. 3-Sqczuullvm-pivslxo completes the activity by him/herself with no assistance from a helper. 5-Set-up or Clean-up Assistance-helper sets up or cleans up; patient completes activity. [place] assists only prior to or following the activity. 4-Supervision or Touching Assistance-helper provides verbal cues and/or touching/steadying and/or contact guard assistance as patient completes activity. Assistance may be provided throughout the activity or intermittently. 3-Partial/Moderate Assistance-helper does LESS THAN HALF the effort. [place] lifts, holds or supports trunk or limbs, but provides less than half the effort. 2-Substantial/Maximal Assistance-helper does MORE THAN HALF the effort. [place] lifts or holds trunk or limbs and provides more than half the effort. 3-Drerilugb-sqpcvw does ALL the effort. Patient does none of the effort to complete the activity. Or, the assistance of 2 or more helpers is required for the patient to complete the activity. If activity was not attempted, code reason: 7-Patient Refused. 9-Not Applicable-not attempted and the patient did not perform the activity before the current illness, exacerbation or injury. 10-Not Attempted due to Environmental Limitations-(lack of equipment, weather restraints, etc.). 88-Not Attempted due to Medical Conditions or Safety Concerns. Bed Mobility: 6 Transfers (B,C,W/C): 6 Gait: 6 Stairs: 6 Indoor Mobility (Ambulation): Independent Stairs: Independent Prior Devices Use: Walker (occasionally used) PT Evaluation-Current Subjective Patient reports he is feeling good. Reports he took a walk this morning through the hallways and has taken several trips to the bathroom today. Reports no pain or issues. Pain Numeric Pain Scale: 0-No Pain Location: No Pain Reported Objective Patient Orientation: Normal For Age Attachments: IV ROM/Strength ROM Lower Extremities WFL Strength Lower Extremities grossly 4/5 Integumentary/Posture Integumentary See nursing notes Bowel Incontinence: No Bladder Incontinence: No Posture WFL Neuromuscular (Tone, Coordination, Reflexes) grossly intact Sensory Vision: Wears Glasses Hearing: Functional Hand Dominance: Left Transfers Sit to Stand (QC): 6 Gait Does the Patient Walk?: Yes Mode of Locomotion: Walk Anticipated Mode of Locomotion: Walk Distance: 5=080-62 ft Walk 10 feet (QC): 6 Walk 50 ft with 2 Turns(QC): 6 Walk 150 ft (QC): 6 Distance: 300' Gait Assistive Device: None (pushed IV pole independently) Comments/Gait Description Step through pattern, normal pace, narrow L[place]ON and shuffling steps Balance Sitting Static: Normal Sitting Dynamic: Normal Standing Static: Normal Standing Dynamic: Normal Treatment Seated EX: ankle pumps, marches, LAQ, abd/add 2x10; Standing EX: glute sets, marching, hamstring curls, calf raises, 3-way hip, weight shift, mini squats x10 Assessment/Needs Patient completed two sets of all seated exercises and one set of standing exercises without difficulty or assistance, using walker for balance during standing exercises. Patient has been independent in room with toileting and walking in the hallway without use of FWW. After ambulation of 300', patient reported he was feeling a little SOA and was unable to walk as far as previously. O2 sat measured immediately after ambulation at 92%, which patient reported was normal during this hospitalization. Patient felt fine sitting in chair and was able to continue exercises after rest. Rehab Potential: Good PT [facility] Goals Headline Writer Goals PT Headline Writer Goals Time Frame: Mar 09, 2019 Sit to Lying (QC): 6 Lying-Sitting on Side/Bed(QC): 6 Sit to Stand (QC): 6 Roll Left to Right (QC): 6 Chair/Hcn-oz-Rerym Xfer(QC): 6 Car Transfer (QC): 6 Does the Patient Walk: Yes Distance: 500' Walk 10 feet (QC): 6 Walk 10ft-Uneven Surface(QC): 6 Walk 50ft with 2 Turns (QC): 6 Walk 150 ft (QC): 6 # of Steps: 8 1 Step (curb) (QC): 6 4 Steps (QC): 6 PT Plan Problem List Problem List: Activity Tolerance, Functional Strength, Safety, Balance, Gait, Transfer, Bed Mobility Treatment/Plan Treatment Plan: Continue Plan of Care Treatment Plan: Bed Mobility, Education, Functional Activity [place], Functional Strength, Gait, Safety, Therapeutic Exercise, Transfers Frequency: 6 times per week Estimated Hrs Per Day: .25 hour per day Patient and/or Family Agrees t: Yes Time/GCodes Time In: 1450 Time Out: 1513 Total Billed Treatment Time: 23 Total Billed Treatment 1 visit EVL 8 min FA 15 min ISABELLA COE PT Mar 01, 2019 15:25 POS
--- NOTE | 2019-03-01 17:24 | NUR ---
AMAYAFRANTZ Juan admitted to swing bed status to room 406-1, with an admitting diagnosis of LLPNA, hypoxia, PE, DVT, on 03/01/19 from acute inpatient status. FRANTZ CONDE and/or family introduced to surroundings, call light, bed controls, phone, TV, temperature control, lights, meal times, smoking policy, visitor policy, side rail policy, bathrooms, and showers. FRANTZ CONDE and/or family member verbalized understanding that [facility] is not responsible for the loss or damage to any personal effects or valuables that are kept in the patients possession during their hospitalization. FRANTZ CONDE and/or family verbalizes understanding of the Interdisciplinary Patient Education. Patient and/or family were informed about the Rapid Response Team and its purpose. Call light with in reach and patient demonstrates understanding of how to use. FRANTZ CONDE reports no further needs at this time.
[2019-03-01 18:20] VITALS: BP 122/58
[2019-03-01] MEDS: FENOFIBRATE 134 MG (LOFIBRA) CAPSULE PO SCH (21:27)
[2019-03-01] MEDS: DRONEDARONE TABLET 400 MG TABLET PO SCH (21:27)
[2019-03-02 06:00] VITALS: BP 109/58
[2019-03-02] MEDS: warFARin 5 MG (COUMADIN) TAB PO SCH (08:08)
[2019-03-02] MEDS: DRONEDARONE TABLET 400 MG TABLET PO SCH ×2 (08:08→21:10)
[2019-03-02 08:09] LABS: INR 1.4 (0.8-1.4); PROTHROMBIN TIME PATIENT 17.4 SEC (12.2-14.7)
[2019-03-02] MEDS: HEParin DRIP 25000 UNIT/500ML 500 ML IV SCH (09:57)
--- NOTE | 2019-03-02 10:42 | Pulmonary Progress Note ---
Subjective Time Seen by a Provider: 10:41 Subjective/Events-last exam No complications noted. Sepsis Event Evaluation Height, Weight, BMI Height: 5'68.00" Weight: 165lbs. 5.0oz. 79.068860sh; 27.39 BMI Method:Stated Exam Exam Vital Signs Date Time Temp Pulse Resp B/P (MAP) Pulse Ox O2 Delivery O2 Flow Rate FiO2 03/02/19 09:42 Room Air 03/02/19 09:00 Room Air 03/02/19 06:00 36.4 80 18 109/58 (75) 94 Room Air 03/01/19 21:00 Room Air 03/01/19 18:20 36.5 83 16 122/58 (79) 92 Nasal Cannula 2.00 03/01/19 17:57 Room Air I & O 03/02/19 07:00 Intake Total 1040 ml Output Total 750 ml Balance 290 ml Height & Weight Height: 5'68.00" Weight: 165lbs. 5.0oz. 79.100865um; 27.39 BMI Method:Stated General Appearance: No Apparent Distress, WD/WN HEENT: PERRL/EOMI, Normal ENT Inspection, Pharynx Normal Neck: Full Range of Motion, Non Tender, Supple Respiratory: Chest Non Tender, No Accessory Muscle Use, No Respiratory Distress, Decreased Breath Sounds Cardiovascular: Regular Rate, Rhythm, No Edema Capillary Refill: Less Than 3 Seconds Gastrointestinal: normal bowel sounds, non tender, soft Extremity: Normal Capillary Refill, No Pedal Edema Neurologic/Psychiatric: Alert, Oriented x3 Skin: Normal Color, Warm/Dry Lymphatic: No Adenopathy Assessment/Plan Assessment/Plan Acute PNA with leukocytosis -Levaquin x total Abx 5-7days then D/C -[place] cultures Recently Dx acute PE with hemoptysis - probably from nasal bleeding -CXR is clear. Hb is stable -PT is being bridged to coumadin with hep Nocturnal hypoxia -Overnight ox results pending -If pt was <89% for 5min we should be able to get him nocturnal oxygen. YAZMIN JONES DO Mar 02, 2019 10:42 POS
--- NOTE | 2019-03-02 11:29 | Physical Therapy Daily Note ---
PT Daily Note-Current Subjective Patient agrees to PT at this time. Reports he is feeling good today and no SOA. Patient states he has been up and around in his room this morning. Reports some soreness around chest from coughing. Pain Numeric Pain Scale: 0-No Pain Location: No Pain Reported Mental Status Patient Orientation: Normal For Age Attachments: IV Transfers SCALE: Activities may be completed with or without assistive devices. 8-Gkhuiwpazm-rswzqzp completes the activity by him/herself with no assistance from a helper. 5-Set-up or Clean-up Assistance-helper sets up or cleans up; patient completes activity. [place] assists only prior to or following the activity. 4-Supervision or Touching Assistance-helper provides verbal cues and/or touching/steadying and/or contact guard assistance as patient completes ac tivity. Assistance may be provided throughout the activity or intermittently. 3-Partial/Moderate Assistance-helper does LESS THAN HALF the effort. [place] lifts, holds or supports trunk or limbs, but provides less than half the effort. 2-Substantial/Maximal Assistance-helper does MORE THAN HALF the effort. [place] lifts or holds trunk or limbs and provides more than half the effort. 6-Snonaiuxh-kdzpce does ALL the effort. Patient does none of the effort to complete the activity. Or, the assistance of 2 or more helpers is required for the patient to complete the activity. If activity was not attempted, code reason: 7-Patient Refused. 9-Not Applicable-not attempted and the patient did not perform the activity before the current illness, exacerbation or injury. 10-Not Attempted due to Environmental Limitations-(lack of equipment, weather restraints, etc.). 88-Not Attempted due to Medical Conditions or Safety Concerns. Sit to Stand (QC): 6 Weight Bearing Right Lower Extremity: Right Weight Bearing/Tolerated Left Lower Extremity: Left Weight Bearing/Tolerated Gait Training Does the Patient Walk?: Yes Gait: 6 Distance: 600' Walk 10 feet (QC): 6 Walk 50 ft with 2 Turns(QC): 6 Walk 150 ft (QC): 6 Gait Assistive Device: None (pushing IV pole) Narrow LEVON, sometimes walking tandem heel to toe; quick shuffling gait. Exercises Seated Therapy Exercises: Ankle pumps, Sit to stand, Long arc quads, Hip flexion, Hip abd/add, Glut set Seated Reps: 10 Standing: Hamstring curls, 3 way Ex=Flex, Abd, Ext, Marching, Mini squats Standing Reps: 10 Assessment Patient performed all seated and standing exercises well, both before and after ambulation. Patient was able to ambulate 600' independently, pushing IV pole, with a quick shuffling gait and NBOS. Patient was able to ambulate further today than previously. Patient did not have any SOB at conclusion of treatment. Patient seated in chair with legs elevated. PT Alf Goals Alf Goals PT Storekeeper Helper Goals Time Frame: Mar 09, 2019 Sit to Lying (QC): 6 Lying-Sitting on Side/Bed(QC): 6 Sit to Stand (QC): 6 Roll Left to Right (QC): 6 Chair/Kzd-gp-Qmvfv Xfer(QC): 6 Car Transfer (QC): 6 Does the Patient Walk: Yes Distance: 500' Walk 10 feet (QC): 6 Walk 10ft-Uneven Surface(QC): 6 Walk 50ft with 2 Turns (QC): 6 Walk 150 ft (QC): 6 # of Steps: 8 1 Step (curb) (QC): 6 4 Steps (QC): 6 PT Plan Treatment/Plan Treatment Plan: Continue Plan of Care Treatment Plan: Bed Mobility, Education, Functional Activity [place], Functional Strength, Gait, Safety, Therapeutic Exercise, Transfers Frequency: 6 times per week Estimated Hrs Per Day: .25 hour per day Patient and/or Family Agrees t: Yes Time/GCodes Time In: 1025 Time Out: 1040 Total Billed Treatment Time: 15 Total Billed Treatment 1 visit FA 15min ISABELLA COE PT Mar 02, 2019 11:29 POS
--- NOTE | 2019-03-02 12:28 | Occupational Ther Daily Note ---
OT Current Status-Daily Note Subjective Pt states " I am feeling better " when asked how he is doing. No c/o of pain. Appearance Pt seated in chair when OT entered the room. Pt agrees to therapy treatment. Mental Status/Objective Patient Orientation: Person, Place, Time, Situation Attachments: IV ADL-Treatment Therapy Code Descriptions/Definitions Functional [place] Measure: 0=Not Assessed/NA 4=Minimal Assistance 1=Total Assistance 5=Supervision or Setup 2=Maximal Assistance 6=Modified [place] 3=Moderate Assistance 7=Complete IndependenceSCALE: Activities may be completed with or without assistive devices. 5-Vrnxjicwuf-wvvrbkz completes the activity by him/herself with no assistance from a helper. 5-Set-up or Clean-up Assistance-helper sets up or cleans up; patient completes activity. [place] assists only prior to or following the activity. 4-Supervision or Touching Assistance-helper provides verbal cues and/or touching/steadying and/or contact guard assistance as patient completes activity. Assistance may be provided throughout the activity or intermittently. 3-Partial/Moderate Assistance-helper does LESS THAN HALF the effort. [place] lifts, holds or supports trunk or limbs, but provides less than half the effort. 2-Substantial/Maximal Assistance-helper does MORE THAN HALF the effort. [place] lifts or holds trunk or limbs and provides more than half the effort. 6-Fxeyxftsm-qnczkl does ALL the effort. Patient does none of the effort to complete the activity. Or, the assistance of 2 or more helpers is required for the patient to complete the activity. If activity was not attempted, code reason: 7-Patient Refused. 9-Not Applicable-not attempted and the patient did not perform the activity before the current illness, exacerbation or injury. 10-Not Attempted due to Environmental Limitations-(lack of equipment, weather restraints, etc.). 88-Not Attempted due to Medical Conditions or Safety Concerns. Oral Hygiene (QC): 7 (Pt declined oral hygiene reported he had completed earlier.) Bathing Location: L Arm, R Arm, L Upper Leg, R Upper Leg, L Lower Leg (including foot), R Lower Leg (including foot), Chest, Abdomen, Buttocks, Perineal Area Shower/Bathe Self (QC): 6 (Using hand held shower and grab bars, pt completed shower independently.) Lower Body Dressing (QC): 4 (Pt required supervision when completing lower body dressing.) Toileting Hygiene (QC): 6 (Pt was independent with toileting hygiene.) Toilet Transfer (QC): 4 (Pt required supervision when transporting IV pole to the shower bench.) Other Treatment Pt had IV pole throughout the session. Pt donned hospital gown with assist due to IV tubing. Pt reported that his is coming this afternoon to bring more cloths. Pt combed his hair while standing at the sink and required supervision. Pt seated in his chair phone/call light in reach. All need met. Education OT Patient Education: Instructions to caregiver, Modified ADL techniques, Progress toward Goal/Update tx plan, Purpose of tx/functional activities, Reviewed precautions, Rehab process, Safety issues Teaching Recipient: Patient Teaching Methods: Demonstration, Discussion Response to Teaching: Verbalize Understanding, Return Demonstration OT Short Term Goals Short Term Goals 1=Demonstrate adherence to instructed precautions during ADL tasks. 2=Patient will verbalize/demonstrate understanding of assistive devices/modifications for ADL. 3=Patient will improve strength/tolerance for activity to enable patient to perform ADL's. OT Light Rail Operator Goals Light Rail Operator Goals Eating (QC): 6 Oral Hygiene (QC): 6 Shower/Bathe Self (QC): 6 Upper Body Dressing (QC): 6 Lower Body Dressing (QC): 6 On/Off Footwear (QC): 6 Toileting Hygiene (QC): 6 Toilet/Commode Transfer (QC): 6 Additional Goals: 1-Demonstrate ADL Tasks, 2-Verbalize Understanding, 3- ImproveStrength/[place] 1=Demonstrate adherence to instructed precautions during ADL tasks. 2=Patient will verbalize/demonstrate understanding of assistive devices/modifications for ADL. 3=Patient will improve strength/tolerance for activity to enable patient to perform ADL's. OT Education/Plan Problem List/Assessment Assessment: Decreased Activ Tolerance, Decreased UE Strength, Impaired I ADL's, Impaired Self-Care Skills Discharge Recommendations Plan/Recommendations: Continue POC Therapy Discharge Recommendati: Post Acute OT Comment To be determined. Treatment Plan/Plan of Care Patient would benefit from OT for education, treatment and training to promote independence in ADL's, mobility, safety and/or upper extremity function for ADL's. Plan of Care: ADL Retraining, Functional Mobility, UE Funct Exercise/Act Treatment Duration: Mar 15, 2019 Frequency: At least 5 of 7 days/Wk (IRF) Estimated Hrs Per Day: 1.5 hours per day Agreement: Yes Rehab Potential: Good Time/GCodes Start Time: 10:54 Stop Time: 11:42 Total Time Billed (hr/min): 48 Billed Treatment Time 1, ADL X3 48 Minutes DIONY EDWARDS Mar 02, 2019 12:28 POS
--- NOTE | 2019-03-02 14:01 | Progress Note - Hospitalist ---
Subjective HPI/CC On Admission Date Seen by Provider: Mar 02, 2019 Time Seen by Provider: 13:00 shortness of breath Subjective/Events-last exam He reports ongoing phlegm production. He has some abdominal muscle pain due to coughing. He denies fevers, chills, chest pain, shortness of breath, nausea, or vomiting. Objective Exam Vital Signs Vital Signs Date Time Temp Pulse Resp B/P (MAP) Pulse Ox O2 Delivery O2 Flow Rate FiO2 03/02/19 09:42 Room Air 03/02/19 06:00 36.4 80 18 109/58 (75) 94 03/01/19 18:20 2.00 Capillary Refill : Less Than 3 Seconds General Appearance: No Apparent Distress, WD/WN HEENT: PERRL/EOMI, Moist Mucous Membranes Neck: Normal Inspection, Supple Respiratory: Lungs Clear, Normal Breath Sounds, No Respiratory Distress Cardiovascular: Regular Rate, Rhythm, No Murmur Gastrointestinal: Normal Bowel Sounds, Non Tender, Soft Extremity: Normal Inspection, Non Tender, Pedal Edema Neurologic/Psychiatric: Alert, Oriented x3, No Motor/Sensory Deficits, Normal Mood/Affect Skin: Normal Color, Warm/Dry Results/Procedures Lab Patient resulted labs reviewed. Assessment/Plan Assessment and Plan Assess & Plan/Chief Complaint DVT/PE -Continue Heparin gtt -Continue coumadin, pharmacy assisting Community acquired pneumonia -Continue levaquin Likely JOSE -Will need repeat overnight trend ox prior to discharge Paroxysmal atrial fibrillation -Continue dronedarone -Continue heparin and coumadin Diagnosis/Problems Diagnosis/Problems (1) Pulmonary emboli Status: Acute (2) DVT (deep venous thrombosis) Status: Acute (3) Atrial fibrillation Status: Chronic Qualifiers: Atrial fibrillation type: paroxysmal Qualified Codes: I48.0 - Paroxysmal atrial fibrillation (4) Community acquired pneumonia Status: Acute Clinical Quality Measures DVT/VTE Risk/Contraindication: Risk Factor Score Per Nursin ANETTE PAINTER MD Mar 02, 2019 14:01 POS
[2019-03-02 18:02] VITALS: BP 108/60
[2019-03-02] MEDS: FENOFIBRATE 134 MG (LOFIBRA) CAPSULE PO SCH (21:09)
[2019-03-03 05:35] VITALS: BP 111/59
[2019-03-03 05:39] LABS: INR 1.6 (0.8-1.4); PROTHROMBIN TIME PATIENT 19.6 SEC (12.2-14.7)
--- NOTE | 2019-03-03 06:46 | Pulmonary Progress Note ---
Subjective Time Seen by a Provider: 06:46 Subjective/Events-last exam No complications noted. Sepsis Event Evaluation Height, Weight, BMI Height: 5'68.00" Weight: 165lbs. 5.0oz. 79.024089st; 27.39 BMI Method:Stated Exam Exam Vital Signs Date Time Temp Pulse Resp B/P (MAP) Pulse Ox O2 Delivery O2 Flow Rate FiO2 03/03/19 05:35 36.4 61 18 111/59 (76) 94 Nasal Cannula 2.00 03/03/19 03:29 Room Air 03/02/19 21:00 Room Air 03/02/19 18:02 36.4 75 20 108/60 (76) 75 Room Air 03/02/19 09:42 Room Air 03/02/19 09:00 Room Air I & O 03/03/19 07:00 Intake Total 1810 ml Balance 1810 ml Height & Weight Height: 5'68.00" Weight: 165lbs. 5.0oz. 79.527245hr; 27.39 BMI Method:Stated General Appearance: No Apparent Distress, WD/WN HEENT: PERRL/EOMI, Moist Mucous Membranes Neck: Normal Inspection, Supple Respiratory: Lungs Clear, Normal Breath Sounds, No Respiratory Distress Cardiovascular: Regular Rate, Rhythm, No Murmur Capillary Refill: Less Than 3 Seconds Gastrointestinal: normal bowel sounds, non tender, soft Extremity: Normal Inspection, Non Tender, Pedal Edema Neurologic/Psychiatric: Alert, Oriented x3, No Motor/Sensory Deficits, Normal Mood/Affect Skin: Normal Color, Warm/Dry Lymphatic: No Adenopathy Assessment/Plan Assessment/Plan Acute PNA with leukocytosis -Levaquin x total Abx 5-7days then D/C - will stop tomorrow -[place] cultures Recently Dx acute PE with hemoptysis - probably from nasal bleeding -CXR is clear. Hb is stable -PT is being bridged to coumadin with hep Nocturnal hypoxia -Overnight ox results pending -If pt was <89% for 5min we should be able to get him nocturnal oxygen. YAZMIN JONES DO Mar 03, 2019 06:46 POS
[2019-03-03] MEDS: warFARin 5 MG (COUMADIN) TAB PO SCH (08:49)
[2019-03-03] MEDS: DRONEDARONE TABLET 400 MG TABLET PO SCH ×2 (08:50→21:51)
[2019-03-03] MEDS: HEParin DRIP 25000 UNIT/500ML 500 ML IV SCH (09:35)
[2019-03-03] MEDS ORDERED: LEVOFLOXACIN 750 MG TAB (LEVAQUIN) PO SCH ×2 (11:00)
--- NOTE | 2019-03-03 12:01 | Physical Therapy Daily Note ---
PT Daily Note-Current Subjective Pt is alert and ready to get up and walk. Mental Status Patient Orientation: Person, Place, Time, Situation Transfers SCALE: Activities may be completed with or without assistive devices. 9-Qebnczcepv-saxvzkk completes the activity by him/herself with no assistance from a helper. 5-Set-up or Clean-up Assistance-helper sets up or cleans up; patient completes activity. [place] assists only prior to or following the activity. 4-Supervision or Touching Assistance-helper provides verbal cues and/or to uching/steadying and/or contact guard assistance as patient completes activity. Assistance may be provided throughout the activity or intermittently. 3-Partial/Moderate Assistance-helper does LESS THAN HALF the effort. [place] lifts, holds or supports trunk or limbs, but provides less than half the effort. 2-Substantial/Maximal Assistance-helper does MORE THAN HALF the effort. [place] lifts or holds trunk or limbs and provides more than half the effort. 9-Znhaqrgrg-lfsapg does ALL the effort. Patient does none of the effort to complete the activity. Or, the assistance of 2 or more helpers is required for the patient to complete the activity. If activity was not attempted, code reason: 7-Patient Refused. 9-Not Applicable-not attempted and the patient did not perform the activity before the current illness, exacerbation or injury. 10-Not Attempted due to Environmental Limitations-(lack of equipment, weather restraints, etc.). 88-Not Attempted due to Medical Conditions or Safety Concerns. Transfers (B, C, W/C): 7 Sit to Stand (QC): 7 Bed to/from Chair: 7 Weight Bearing Right Lower Extremity: Right Weight Bearing/Tolerated Left Lower Extremity: Left Weight Bearing/Tolerated Gait Training Does the Patient Walk?: Yes Gait: 6 Distance: 600ft Walk 10 feet (QC): 6 Walk 50 ft with 2 Turns(QC): 6 Walk 150 ft (QC): 6 Gait Persons Needed: 0 Gait Assistive Device: None Pt pushes the IV pole during gt. He was able to ambulate the last 100ft without the pole or assist. Wheelchair Training Does the Pt Use a Wheelchair?: No Assessment Pt is motivated to return home. He was pleased with how he felt during his ambulation. No fatigue or soreness. PT Correction Goals Salon Stylist Goals PT Salon Stylist Goals Time Frame: Mar 09, 2019 Sit to Lying (QC): 6 Lying-Sitting on Side/Bed(QC): 6 Sit to Stand (QC): 6 Roll Left to Right (QC): 6 Chair/Urm-yv-Dojlf Xfer(QC): 6 Car Transfer (QC): 6 Does the Patient Walk: Yes Distance: 500' Walk 10 feet (QC): 6 Walk 10ft-Uneven Surface(QC): 6 Walk 50ft with 2 Turns (QC): 6 Walk 150 ft (QC): 6 # of Steps: 8 1 Step (curb) (QC): 6 4 Steps (QC): 6 PT Plan Treatment/Plan Treatment Plan: Continue Plan of Care Treatment Plan: Bed Mobility, Education, Functional Activity [place], Functional Strength, Gait, Safety, Therapeutic Exercise, Transfers Frequency: 6 times per week Estimated Hrs Per Day: .25 hour per day Patient and/or Family Agrees t: Yes Time/GCodes Time In: 0824 Time Out: 0839 Total Billed Treatment Time: 15 Total Billed Treatment 1, gt 15 FAITH RIVERA PT Mar 03, 2019 12:00 POS
[2019-03-03 18:00] VITALS: BP 99/65
[2019-03-03] MEDS: FENOFIBRATE 134 MG (LOFIBRA) CAPSULE PO SCH (21:51)
[2019-03-04] MEDS: HEParin DRIP 25000 UNIT/500ML 500 ML IV SCH ×2 (01:42→21:35)
[2019-03-04 05:37] LABS: INR 1.8 (0.8-1.4); PROTHROMBIN TIME PATIENT 21.9 SEC (12.2-14.7)
[2019-03-04 06:00] VITALS: BP 103/61
--- NOTE | 2019-03-04 06:59 | Pulmonary Progress Note ---
Subjective Time Seen by a Provider: 08:09 Subjective/Events-last exam Pt has no complaints. No hemoptysis Sepsis Event Evaluation Height, Weight, BMI Height: 5'68.00" Weight: 165lbs. 5.0oz. 79.932026ef; 27.39 BMI Method:Stated Exam Exam Vital Signs Date Time Temp Pulse Resp B/P (MAP) Pulse Ox O2 Delivery O2 Flow Rate FiO2 03/04/19 06:00 36.0 63 20 103/61 (75) 93 Room Air 03/03/19 21:00 96 Room Air 03/03/19 18:30 Room Air 03/03/19 18:00 36.7 81 18 99/65 (76) 96 Room Air 03/03/19 09:00 Room Air 03/03/19 07:43 Room Air I & O 03/04/19 07:00 Intake Total 2040 ml Balance 2040 ml Height & Weight Height: 5'68.00" Weight: 165lbs. 5.0oz. 79.747550ug; 27.39 BMI Method:Stated General Appearance: No Apparent Distress, WD/WN HEENT: PERRL/EOMI, Moist Mucous Membranes Neck: Normal Inspection, Supple Respiratory: Lungs Clear, Normal Breath Sounds, No Respiratory Distress Cardiovascular: Regular Rate, Rhythm, No Murmur Capillary Refill: Less Than 3 Seconds Gastrointestinal: normal bowel sounds, non tender, soft Extremity: Normal Inspection, Non Tender, Pedal Edema Neurologic/Psychiatric: Alert, Oriented x3, No Motor/Sensory Deficits, Normal Mood/Affect Skin: Normal Color, Warm/Dry Lymphatic: No Adenopathy Assessment/Plan Assessment/Plan Acute PNA - resolving Recently Dx acute PE with hemoptysis - probably from nasal bleeding -CXR is clear. Hb is stable -PT is being bridged to Coumadin with hep Nocturnal hypoxia -Overnight ox results pending -If pt was <89% for 5min we should be able to get him nocturnal oxygen. YAZMIN JONES DO Mar 04, 2019 06:59 POS
[2019-03-04] MEDS: warFARin 5 MG (COUMADIN) TAB PO SCH (09:21)
[2019-03-04] MEDS: DRONEDARONE TABLET 400 MG TABLET PO SCH ×2 (09:21→21:12)
[2019-03-04 18:00] VITALS: BP 114/63
[2019-03-04] MEDS: FENOFIBRATE 134 MG (LOFIBRA) CAPSULE PO SCH (21:12)
[2019-03-05 05:30] VITALS: BP 107/64
[2019-03-05 05:38] LABS: PROTHROMBIN TIME PATIENT 23.6 SEC (12.2-14.7)
--- NOTE | 2019-03-05 08:12 | Pulmonary Progress Note ---
Subjective Time Seen by a Provider: 08:10 Subjective/Events-last exam PT wants to go home. No complications noted. Sepsis Event Evaluation Height, Weight, BMI Height: 5'68.00" Weight: 165lbs. 5.0oz. 79.023808pl; 27.39 BMI Method:Stated Exam Exam Vital Signs Date Time Temp Pulse Resp B/P (MAP) Pulse Ox O2 Delivery O2 Flow Rate FiO2 03/05/19 05:30 36.7 67 18 107/64 (78) 93 Room Air 03/04/19 21:29 Room Air 03/04/19 20:20 96 Room Air 03/04/19 18:00 36.6 72 18 114/63 (80) 96 Room Air 03/04/19 11:27 81 90 21 03/04/19 11:27 90 Room Air 03/04/19 09:00 Room Air l I & O 03/05/19 07:00 Intake Total 2650 ml Output Total 1350 ml Balance 1300 ml Height & Weight Height: 5'68.00" Weight: 165lbs. 5.0oz. 79.625900bg; 27.39 BMI Method:Stated General Appearance: No Apparent Distress, WD/WN HEENT: PERRL/EOMI, Moist Mucous Membranes Neck: Normal Inspection, Supple Respiratory: Lungs Clear, Normal Breath Sounds, No Respiratory Distress Cardiovascular: Regular Rate, Rhythm, No Murmur Capillary Refill: Less Than 3 Seconds Gastrointestinal: normal bowel sounds, non tender, soft Extremity: Normal Inspection, Non Tender, Pedal Edema Neurologic/Psychiatric: Alert, Oriented x3, No Motor/Sensory Deficits, Normal Mood/Affect Skin: Normal Color, Warm/Dry Lymphatic: No Adenopathy Assessment/Plan Assessment/Plan Acute PNA - resolving Recently Dx acute PE with hemoptysis - probably from nasal bleeding -CXR is clear. Hb is stable -PT is being bridged to Coumadin with hep -INR is now 2 will D/C hep gtt -Currently Coumadin 5mg daily PO Nocturnal hypoxia -Overnight ox results pending -If pt was <89% for 5min we should be able to get him nocturnal oxygen. YAZMIN JONES DO Mar 05, 2019 08:12 POS
[2019-03-05] MEDS: DRONEDARONE TABLET 400 MG TABLET PO SCH ×2 (08:32→20:28)
[2019-03-05] MEDS: warFARin 5 MG (COUMADIN) TAB PO SCH (08:33)
--- NOTE | 2019-03-05 09:06 | Consultation-Cardiology ---
HPI-Cardiology Cardiology Consultation Date of Consultation 03/05/19 Date of Admission Time Seen by Provider: 08:10 Indication: PAF, recent DVT, PE HPI Patient is an 89 year old male with history of PAF, recent bilat DVT and PE, was started on Xarelto on last admission and discharged home on 02/22/19. Returned to ER on 02/26/19 with c/o increased dyspnea and frequent nose bleeds since starting Xarelto. Diagnosed with pneumonia and started on antibiotics. Denies any chest pain, states dyspnea continues to improve. Denies any dizziness or lightheadedness. Home Medications & Allergies Allergies: Coded Allergies: Penicillins (Verified Allergy, Severe, Anaphylaxis (pt tolerates Ceftriaxone), 02/26/19) iodine (Verified Allergy, Unknown, 02/26/19) Uncoded Allergies: SURGICAL GLUE (Allergy, Severe, "TOOK OFF SKIN", 06/04/17) Home Medication List Reviewed: Yes CUZ-[id number]-[id number] Hx Patient Social History Marital Status: Employed/Student: retired Alcohol Use: Denies Use Smoking Status: Never a Smoker 2nd Hand Smoke Exposure: No Recent Hopitalizations: Yes (RECENT DC 02/22/19) Immunizations Up To Date Date of Pneumonia Vaccine: Feb 26, 2015 Date of Influenza Vaccine: Feb 24, 2019 Past Medical History PAF, HTN, DVT/PE Family Medical History Significant Family History: No Pertinent Family Hx Family History: Lung cancer Severe allergy 19 FATHER Review of Systems-General Review of Systems Constitutional: see HPI; No chills, No diaphoresis, No dizziness; malaise, weakness EENTM: see HPI, epistaxis; No blurred vision, No double vision, No vision loss, No nose congestion Respiratory: see HPI, cough, dyspnea on exertion; No orthopnea; short of breath Cardiovascular: see HPI; No chest pain, No edema, No Hx of Intervention, No palpitations Gastrointestinal: see HPI; No abdominal pain, No constipation, No hematemesis Genitourinary: see HPI; No dysuria, No frequency Musculoskeletal: see HPI; No back pain Skin: see HPI; No lesions, No rash Psychiatric/Neurological: Denies Anxiety, Denies Depressed Reviewed Test Results Reviewed Test Results Lab Laboratory Tests 03/04/19 15:05: Activated Partial Thromboplast Time 104H 03/04/19 21:05: Activated Partial Thromboplast Time 104H 03/05/19 04:45: Activated Partial Thromboplast Time 161*H, Prothrombin Time 23.6H, INR Comment 2.0H ECG Impression ECG Initial ECG Rhythm: Normal Sinus Physical Exam Physical Exam Vital Signs Vital Signs - First Documented 03/01/19 03/01/19 03/04/19 17:57 18:20 11:27 Temp 36.5 Pulse 83 Resp 16 B/P (MAP) 122/58 (79) Pulse Ox 92 O2 Delivery Room Air O2 Flow Rate 2.00 FiO2 21 Capillary Refill : Less Than 3 Seconds Height, Weight, BMI Height: 5'68.00" Weight: 165lbs. 5.0oz. [id number]; 27.39 BMI Method:Stated General Appearance: No Apparent Distress, WD/WN HEENT: PERRL/EOMI, Moist Mucous Membranes Neck: Normal Inspection, Supple Respiratory: Chest Non Tender, No Respiratory Distress, Decreased Breath Sounds Cardiovascular: Regular Rate, Rhythm, No Murmur Gastrointestinal: Normal Bowel Sounds, Non Tender, Soft Extremity: Normal Inspection, Non Tender, Pedal Edema Neurologic/Psychiatric: Alert, Oriented x3, No Motor/Sensory Deficits, Normal Mood/Affect Skin: Normal Color, Warm/Dry Lymphatic: No Adenopathy A/P-Cardiology Admission Diagnosis Pneumonia DVT/PE PAF Palpitations Assessment/Plan Pneumonia, improving, management per Dr. Montano Recent bilat DVT, pulmonary embolism, having frequent nose bleeds while on Xarelto. Intolerant to Eliquis in the past secondary to recurrent conjunctival bleed of the eye. Patient started on Coumadin. INR 2.0 today. Paroxysmal atrial fibrillation, had a reveal, monitoring showed improvement since he started on Multaq on June 22, 2017, no further episodes were reported. continue to monitor. Back pain, status post multiple injection, had epidural injection about 3 weeks ago. [id number] score is 3, yearly risk of stroke without oral anticoagulation is 3.2 percent. 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 Started on Coumadin. Conjunctival bleed on the right, improved at this time. Continue to monitor Palpitations, PVCs-maintained on Toprol-XL 25 mg daily. Unable to increased dose secondary to underlying borderline hypotension and bradycardia Stress test showed extracardiac attenuation with mild ischemia at the inferior wall and inferolateral wall, stress score is 4, SDS is 2, patient is asymptomatic. Medical therapy is recommended no intervention is warranted. Echocardiogram done on July 05, 2018 showing normal left ventricular size with ejection fraction 55-65 percent, grade 2 diastolic dysfunction, mild MR, aortic valve sclerosis, PA 35 mmHg. Continue to monitor Mild bilateral carotid stenosis, nonobstructive disease, last ultrasound was done in May 2018, continue to monitor Lower extremities cramps in pain usually with exertion relieved by rest, reporting improvement, YOSEF was done in January 2017 and it was normal, venous Doppler showed DVT Hyperlipidemia, maintained on fenofibrate, last lipid profile was done on May 25, 2018 showing total cholesterol 189, HDL 53, triglyceride 196, LDL 97. Continue on current medication no changes are recommended, monitor lipids Kidney stone, urinary tract infection, had nephrostomy tube and stent, tube was removed on June 07, 2017, reporting improvement History of multiple surgeries in the past including tonsils, appendix, TURP, rotator cuff on both sides, kidney stones, EGD. Back surgery. Thank you for allowing us to participate in the management of Mr. Byrne. This is Laura Correa PA-C, as a scribe for Dr. Kelley. Patient was seen and evaluated with Laura, examination performed, management plan was discussed, agree with the current scribed note, I made few changes to the note using Italic font 89 years old gentleman with recent diagnosis of DVT and pulmonary embolism, was discharged home on Xarelto and returned for shortness of breath, diagnosed with pneumonia he was having recurrent nosebleed, feeling better at this time. On examination lungs were clear to auscultation bilaterally, heart is regular rate and rhythm Pneumonia, receiving antibiotics and improving Hemoptysis, improving, continue to monitor Nosebleed, better at this time, has been off Xarelto and maintained on Coumadin with INR of 2. Paroxysmal atrial fibrillation, maintained in sinus rhythm Clinical Quality Measures DVT/VTE Risk/Contraindication: Risk Factor Score Per Nursin LAURA GRAY Mar 05, 2019 9:06 am DYLON ALCANTARA MD Mar 05, 2019 11:52 am COLEEN
--- NOTE | 2019-03-05 09:58 | NUR ---
Initial visit from chaplain Liliana Villa: pt anticipates discharge home today and expressed hopes of good test results.
--- NOTE | 2019-03-05 10:00 | NUR ---
Notice of Medicare Non Coverage presented, reviewed, signed and placed in patient's chart. Patient voiced no intention to appeal and deny any needs or further questions at this time.
--- NOTE | 2019-03-05 11:37 | NUR ---
Provided written and verbal discharge instructions to FRANTZ CONDE The information included education material about warfarin therapy that address compliance issues, dietary advice (including vitamin K education), follow-up monitoring including lab testing, and the potential for adverse drug reactions and interactions. I answered all the patient's questions about warfarin therapy. Time spend with patient: 15 MIN
--- NOTE | 2019-03-05 13:10 | Therapy Team Discharge Summary ---
Therapy Discharge Summary Discharge Recommendations Date of Discharge Physical Therapy Patient achieved bed mobility, transfer, and ambulation goals. Patient is independent in all bed mobility activities, able to transfer to/from bed, chair, and toilet independently, and ambulates 600' independently without use of AD. This was attained upon initial evaluation and continued with treatment plan. Patient seen x 3 sessions. Patient to dismiss to home on this date. Occupational Therapy Decreased Activ Tolerance, Decreased UE Strength, Impaired I ADL's, Impaired Self-Care Skills PT Snf Goals Snf Goals PT Snf Goals Time Frame: Mar 09, 2019 Roll Left to Right (QC): 6 (met 11/) Sit to Lying (QC): 6 (met 11/) Lying-Sitting on Side/Bed(QC): 6 (met 11/) Sit to Stand (QC): 6 (met 111) Chair/Oie-ow-Snqsi Xfer(QC): 6 (met 11/) Car Transfer (QC): 6 Does the Patient Walk: Yes Distance: 500' Walk 10 feet (QC): 6 (met 11/) Walk 10ft-Uneven Surface(QC): 6 Walk 50ft with 2 Turns (QC): 6 (met 11/) Walk 150 ft (QC): 6 (met 11/1) # of Steps: 8 1 Step (curb) (QC): 6 4 Steps (QC): 6 OT Snf Goals Senior Manufacturing Technician Goals Eating (QC): 6 Oral Hygiene (QC): 6 Shower/Bathe Self (QC): 6 Upper Body Dressing (QC): 6 Lower Body Dressing (QC): 6 On/Off Footwear (QC): 6 Toileting Hygiene (QC): 6 Toilet/Commode Transfer (QC): 6 Additional Goals: 1-Demonstrate ADL Tasks, 2-Verbalize Understanding, 3- ImproveStrength/Rudolph 1=Demonstrate adherence to instructed precautions during ADL tasks. 2=Patient will verbalize/demonstrate understanding of assistive devices/modifications for ADL. 3=Patient will improve strength/tolerance for activity to enable patient to perform ADL's. ISABELLA COE PT Mar 05, 2019 13:10 POS
[2019-03-05] MEDS ORDERED: WARF5TAB PO (13:33)
--- NOTE | 2019-03-05 13:38 | Discharge Summary ---
Diagnosis/Chief Complaint Date of Admission Mar 01, 2019 at 13:56 Date of Discharge Primary Care Jese Tam MD Discharge Diagnosis (1) Pulmonary emboli Status: Acute (2) DVT (deep venous thrombosis) Status: Acute (3) Atrial fibrillation Status: Chronic (4) Community acquired pneumonia Status: Acute Discharge Summary Procedures/Consulations cardiology Pulmonology Discharge Physical Exam Allergies: Coded Allergies: Penicillins (Verified Allergy, Severe, Anaphylaxis (pt tolerates Ceftriaxone), 02/26/19) iodine (Verified Allergy, Unknown, 02/26/19) Uncoded Allergies: SURGICAL GLUE (Allergy, Severe, "TOOK OFF SKIN", 06/04/17) Vitals & I&Os Vital Signs Date Time Temp Pulse Resp B/P (MAP) Pulse Ox O2 Delivery O2 Flow Rate FiO2 03/06/19 11:32 03/06/19 09:00 Room Air 03/06/19 08:03 92 03/06/19 06:00 36.4 74 18 03/05/19 21:45 1.00 03/04/19 11:27 21 General Appearance: No Apparent Distress, WD/WN Cardiovascular: Regular Rate, Rhythm, No Murmur Neurologic/Psychiatric: Alert, Oriented x3 Hospital Course patient was admitted to swing bed for bridging to warfarin due to acute PE. He was started on Xarelto originally but had uncontrolled nosebleeds. He was transitioned to warfarin and bridged with heparin drip. After 5 days of treatment he had therapeutic INRs 2 days ago. He was transitioned to warfarin only and discharged home in stable condition. I did discuss this with Dr. Kelley who will follow his INRs as an outpatient. Labs (last 24 hrs) Patient resulted labs reviewed. Discussion & Recommendations Discharge Planning: >30 minutes discharge planning Discharge Home Medications: Active Scripts Active Coumadin (Warfarin Sodium) 5 Mg Tablet 5 Mg PO DAILY Reported Diclofenac Sodium 100 Gm Gel..gram. TOP HS APPLY TO HANDS Multaq (Dronedarone HCl) 400 Mg Tablet 400 Mg PO BID Tylenol Arthritis (Acetaminophen) 650 Mg Tablet.er 650 Mg PO TID PRN Vitamin B-12 (Cyanocobalamin (Vitamin B-12)) 500 Mcg Tablet 500 Mcg PO 1200 Folic Acid 0.4 Mg Tablet 0.4 Mg PO 1200 Vitamin D3 (Cholecalciferol (Vitamin D3)) 2,000 Unit Capsule 2,000 Unit PO 1200 Calcium 500 + D Tablet (Calcium Carbonate/Vitamin D3) 1 Each Tablet 1 Tab PO 1200 Magnesium (Magnesium Oxide) 400 Mg Capsule 400 Mg PO 1200 Selina-C 1,000 mg Tablet (Ascorbate Calcium/Bioflavonoid) 1 Each Tablet 1,000 Mg PO 1200 One Daily For Men 50+ Adv Tab (Mv,Minerals/FA/Lycopene/Ginkgo) 1 Each Tablet 1 Tab PO 1200 Omeprazole 20 Mg Capsule.dr 20 Mg PO DAILY PRN Metoprolol Succinate 25 Mg Tab.er.24h 25 Mg PO HS Fenofibrate 160 Mg Tablet 160 Mg PO HS Instructions to patient/family Please see electronic discharge instructions given to patient. Clinical Quality Measures DVT/VTE Risk/Contraindication: Risk Factor Score Per Nursin Problem Qualifiers (1) Atrial fibrillation: Atrial fibrillation type: paroxysmal Qualified Codes: I48.0 - Paroxysmal atrial fibrillation NOHEMI REGALADO MD Mar 05, 2019 13:38 POS
--- NOTE | 2019-03-05 13:41 | Discharge Inst-Simple/Standard ---
Discharge Inst-Standard Reconcile Patient Problems Problems Reviewed?: Yes Discharge Medications New, Converted or Re-Newed RX: Transmitted to Pharmacy Patient Instructions/Follow Up Plan of Care/Instructions/FU: Please continue to take her medications as written. Please follow-up with your primary care doctor Dr. Tam to follow up this hospital stay. Please follow-up with Dr. Simon and his office to monitor INR. Please follow-up with Dr. Montano. Activity as Tolerated: Yes Discharge Diet: Coumadin Patient Diet Return to The Hospital For: Chest pain, shortness of breath, bleeding, confusin, falls, if you feel you are getting worse. NOHEMI REGALADO MD Mar 05, 2019 13:41 POS
--- NOTE | 2019-03-05 13:47 | Discharge Summary ---
Diagnosis/Chief Complaint Date of Admission Mar 01, 2019 at 13:56 Date of Discharge Discharge Date: Mar 05, 2019 Primary Care Jese Tam MD Discharge Diagnosis (1) Pulmonary emboli Status: Acute (2) DVT (deep venous thrombosis) Status: Acute (3) Atrial fibrillation Status: Chronic (4) Community acquired pneumonia Status: Acute Discharge Summary Discharge Physical Exam Allergies: Coded Allergies: Penicillins (Verified Allergy, Severe, Anaphylaxis (pt tolerates Ceftriaxone), 02/26/19) iodine (Verified Allergy, Unknown, 02/26/19) Uncoded Allergies: SURGICAL GLUE (Allergy, Severe, "TOOK OFF SKIN", 06/04/17) Vitals & I&Os Vital Signs Date Time Temp Pulse Resp B/P (MAP) Pulse Ox O2 Delivery O2 Flow Rate FiO2 03/05/19 09:00 93 Room Air 03/05/19 05:30 36.7 67 18 107/64 (78) 03/04/19 11:27 21 03/03/19 05:35 2.00 Hospital Course Labs (last 24 hrs) Laboratory Tests 03/04/19 15:05: Activated Partial Thromboplast Time 104H 03/04/19 21:05: Activated Partial Thromboplast Time 104H 03/05/19 04:45: Activated Partial Thromboplast Time 161*H, Prothrombin Time 23.6H, INR Comment 2.0H Patient resulted labs reviewed. Discharge Home Medications: Active Scripts Active Coumadin (Warfarin Sodium) 5 Mg Tablet 5 Mg PO DAILY Reported Xarelto Starter Pack (Rivaroxaban) 1 Each Tab.ds.pk 1 Each PO UD 15mg by mouth twice daily x 21 days then 20mg by mouth daily Diclofenac Sodium 100 Gm Gel..gram. TOP HS APPLY TO HANDS Multaq (Dronedarone HCl) 400 Mg Tablet 400 Mg PO BID Tylenol Arthritis (Acetaminophen) 650 Mg Tablet.er 650 Mg PO TID PRN Vitamin B-12 (Cyanocobalamin (Vitamin B-12)) 500 Mcg Tablet 500 Mcg PO 1200 Folic Acid 0.4 Mg Tablet 0.4 Mg PO 1200 Vitamin D3 (Cholecalciferol (Vitamin D3)) 2,000 Unit Capsule 2,000 Unit PO 1200 Calcium 500 + D Tablet (Calcium Carbonate/Vitamin D3) 1 Each Tablet 1 Tab PO 1200 Magnesium (Magnesium Oxide) 400 Mg Capsule 400 Mg PO 1200 Selina-C 1,000 mg Tablet (Ascorbate Calcium/Bioflavonoid) 1 Each Tablet 1,000 Mg PO 1200 One Daily For Men 50+ Adv Tab (Mv,Minerals/FA/Lycopene/Ginkgo) 1 Each Tablet 1 Tab PO 1200 Omeprazole 20 Mg Capsule.dr 20 Mg PO DAILY PRN Metoprolol Succinate 25 Mg Tab.er.24h 25 Mg PO HS Fenofibrate 160 Mg Tablet 160 Mg PO HS Instructions to patient/family Please see electronic discharge instructions given to patient. Clinical Quality Measures DVT/VTE Risk/Contraindication: Risk Factor Score Per Nursin Problem Qualifiers (1) Atrial fibrillation: Atrial fibrillation type: paroxysmal Qualified Codes: I48.0 - Paroxysmal atrial fibrillation NOHEMI REGALADO MD Mar 05, 2019 13:47 POS
--- NOTE | 2019-03-05 14:25 | Therapy Team Discharge Summary ---
Therapy Discharge Summary Discharge Recommendations Date of Discharge 03-05-19 Therapy D/C Recommendations: Home w/ Family Support Occupational Therapy Pt. seen for occupational therapy services to increase overall strength and independence. Pt. has met all goals. Pt. will often bathe/dress self prior to OT arriving. Pt. taking self to toilet, toileting with no difficulty. Pt. also grooming and feeding self with no difficulty. Pt. discharging home with no follow up OT needed. No Skilled OT Needs ID'd PT Taxation Consultant Goals Detention Goals PT Detention Goals Time Frame: Mar 09, 2019 Roll Left to Right (QC): 6 (met 11/) Sit to Lying (QC): 6 (met 11) Lying-Sitting on Side/Bed(QC): 6 (met 11) Sit to Stand (QC): 6 (met 111) Chair/Oxe-oj-Khxyp Xfer(QC): 6 (met 03/02) Car Transfer (QC): 6 Does the Patient Walk: Yes Distance: 500' Walk 10 feet (QC): 6 (met 11/) Walk 10ft-Uneven Surface(QC): 6 Walk 50ft with 2 Turns (QC): 6 (met /) Walk 150 ft (QC): 6 (met 11/) # of Steps: 8 1 Step (curb) (QC): 6 4 Steps (QC): 6 OT Taxation Consultant Goals Detention Goals Time Frame: Mar 05, 2019 Eating (QC): 6 (met) Oral Hygiene (QC): 6 (met) Shower/Bathe Self (QC): 6 (met per pt.) Upper Body Dressing (QC): 6 (met) Lower Body Dressing (QC): 6 (met) On/Off Footwear (QC): 6 (met) Toileting Hygiene (QC): 6 (met) Toilet/Commode Transfer (QC): 6 (met) Additional Goals: 1-Demonstrate ADL Tasks, 2-Verbalize Understanding, 3- ImproveStrength/Rudolph 1=Demonstrate adherence to instructed precautions during ADL tasks. 2=Patient will verbalize/demonstrate understanding of assistive devices/modifications for ADL. 3=Patient will improve strength/tolerance for activity to enable patient to perform ADL's. SYMONE JENKINS OT Mar 05, 2019 14:25 POS
--- NOTE | 2019-03-05 14:41 | NUR ---
RD ASSESSMENT PMHx: HTN; afib; HLD; CA(skin); hypercholesterolemia PT INTERACTION: Pt was awake and pleasant during nutrition assessment for length of stay. Pt states current appetite is good and has been for awhile. Note pt avg PO intake of 100% x3d, per chart review. Pt states following a regular diet at home, and currently has no issues with chewing/swallowing at this time. Pt states no recent issues with n/v/c/d at this time. Pt states last BM was 03/05, and note pt currently on bowel regimen of miralax per chart review. Pt states no recent wt changes. Note unable to determine recent wt hx, per chart review. ABNORMAL NUTRITION-RELATED LAB VALUES: (TAKEN 03/01) BUN 32 (H); cr 1.78 (H); glu 112 (H) Est. kcal needs: 4703-4652 kcal (25-30 kcal/kg) Est. Pro needs: 60-75 g Pro (0.8-1.0 g Pro/kg) PES STATEMENT: Given pt's wt hx and PO intake, no nutrition diagnosis at this time (NO-1.1) INTERVENTION: Continue with current diet order of Regular diet. MONITOR/EVALUATE: PO Intake; Plan of Care; Hydration Status; Weight Status; Lab Values Dorene Schneider, MS, RD, LD Ext. [phone]
[2019-03-05 16:49] LABS: INR 1.8 (0.8-1.4); PROTHROMBIN TIME PATIENT 21.4 SEC (12.2-14.7)
[2019-03-05] MEDS ORDERED: HEParin DRIP 25000 UNIT/500ML 500 ML IV SCH (17:37)
--- NOTE | 2019-03-05 17:40 | NUR ---
DR REGALADO GAVE TELEPHONE ORDERS TO RESTART HEPARIN DRIP PROTOCOL WITH NO BOLUS. PT UPDATED ON PLAN OF CARE.
[2019-03-05 17:50] VITALS: BP 111/73
[2019-03-05 18:52] LABS: HEMOGLOBIN 11.9 G/DL (13.3-17.7); MEAN PLATELET VOLUME 9.6 FL (7.4-10.4); RED CELL DISTRIBUTION WIDTH 14.3 % (10.0-14.5); WHITE BLOOD COUNT 6.1 10^3/uL (4.3-11.0)
--- NOTE | 2019-03-05 18:52 | NUR ---
HEPARIN DRIP STARTED WITH CORRECT WT. OF 74.8KG.
[2019-03-05 19:05] LABS: PROTHROMBIN TIME PATIENT 23.2 SEC (12.2-14.7)
[2019-03-05] MEDS: FENOFIBRATE 134 MG (LOFIBRA) CAPSULE PO SCH (20:28)
--- NOTE | 2019-03-06 01:39 | NUR ---
0125 APTT RESULT 86, NO CHANGE IN DOSAGE PER HEPARIN ORDER SET- FULL ANTICOAG THERAPY PROTOCOL. PT REMAINS AT 24 ML/HR. APTT REORDERED FOR 6 HOURS.
[2019-03-06 06:00] VITALS: BP 145/76
[2019-03-06 07:20] LABS: INR 2.1 (0.8-1.4); PROTHROMBIN TIME PATIENT 24.6 SEC (12.2-14.7)
[2019-03-06] MEDS: warFARin 5 MG (COUMADIN) TAB PO SCH (08:14)
[2019-03-06] MEDS: DRONEDARONE TABLET 400 MG TABLET PO SCH (08:14)
--- NOTE | 2019-03-06 08:22 | Progress Note - Hospitalist ---
Subjective HPI/CC On Admission Date Seen by Provider: Mar 06, 2019 Time Seen by Provider: 08:18 shortness of breath Subjective/Events-last exam Pt reports doing well. INR now therapeutic. Objective Exam Vital Signs Vital Signs Date Time Temp Pulse Resp B/P (MAP) Pulse Ox O2 Delivery O2 Flow Rate FiO2 03/06/19 08:03 92 Room Air 03/06/19 06:00 36.4 74 18 145/76 (99) 03/05/19 21:45 1.00 03/04/19 11:27 21 Capillary Refill : Less Than 3 Seconds General Appearance: No Apparent Distress, WD/WN Respiratory: Lungs Clear, No Respiratory Distress Cardiovascular: Regular Rate, Rhythm, No Murmur Gastrointestinal: Normal Bowel Sounds, Soft Results/Procedures Lab Laboratory Tests 03/05/19 18:46 03/06/19 06:50 Patient resulted labs reviewed. Assessment/Plan Assessment and Plan Assess & Plan/Chief Complaint DVT/PE -INR now therapeutic - Was unablet o discharge yesterday evening as second INR was 1.8 - To follow up with Dr Kelley to follow INR Community acquired pneumonia -Completed abx Likely JOSE -Dr Montano to arranged nocturnal oxygen Paroxysmal atrial fibrillation -Continue dronedarone -Continue coumadin Diagnosis/Problems Diagnosis/Problems (1) Community acquired pneumonia Status: Acute (2) Pulmonary emboli Status: Acute (3) DVT (deep venous thrombosis) Status: Acute (4) Atrial fibrillation Status: Chronic Qualifiers: Atrial fibrillation type: paroxysmal Qualified Codes: I48.0 - Paroxysmal atrial fibrillation (5) Nocturnal hypoxemia (6) Epistaxis Status: Resolved Resolution Date/Time: 03/01/19 @ 10:24 (7) Essential (primary) hypertension Status: Chronic Clinical Quality Measures DVT/VTE Risk/Contraindication: Risk Factor Score Per Nursin NOHEMI REGALADO MD Mar 06, 2019 08:21 POS
--- NOTE | 2019-03-06 08:38 | Cardiology Progress Note ---
Subjective Date Seen by Provider: Mar 06, 2019 Time Seen by Provider: 08:37 Subjective/Events-last exam Patient is sitting in a chair, feeling well, complaining of mild nosebleed. Review of Systems General: No Chills, No Night Sweats, No Fatigue, No Malaise, No Appetite, No Other HEENT: No Head Aches, No Visual Changes, No Eye Pain, No Ear Pain, No Dysphasia, No Sinus Congestion, No Post Nasal Drip, No Sore Throat, No Other Pulmonary: No Dyspnea, No Cough, No Pleuritic Chest Pain, No Other Cardiovascular: No: Chest Pain, Palpitations, Orthopnea, Paroxysmal Noc. Dyspnea, Edema, Lt Headedness, Other Objective-Cardiology Exam Last Set of Vital Signs Vital Signs 03/04/19 03/05/19 03/06/19 03/06/19 11:27 21:45 06:00 08:03 Temp 36.4 Pulse 74 Resp 18 B/P (MAP) 145/76 (99) Pulse Ox 92 O2 Delivery Room Air O2 Flow Rate 1.00 FiO2 21 Capillary Refill : Less Than 3 Seconds I&O Intake and Output 03/06/19 00:00 Intake Total 1370 ml Output Total 1350 ml Balance 20 ml Intake Oral 1370 ml Output Urine Total 1350 ml # Voids 6 # Bowel Movements 2 General: Alert, Oriented X3, Cooperative HEENT: Atraumatic, PERRLA Neck: Supple, No JVD, No Thyromegaly Lungs: Clear to Auscultation, Normal Air Movement Heart: Regular Rate, Normal S1, Normal S2, No Murmurs Abdomen: Normal Bowel Sounds, Soft, No Tenderness, No Hepatosplenomegaly, No Masses Extremities: No Clubbing, No Cyanosis, No Edema, Normal Pulses, No Tenderness/Swelling Skin: No Rashes, No Breakdown, No Significant Lesion Neuro: Normal Gait, Normal Speech, Strength at 5/5 X4 Ext, Normal Tone, Sensation Intact Psych/Mental Status: Mental Status NL, Mood NL Results Lab Laboratory Tests 03/05/19 18:46 03/06/19 06:50 A/P-Cardiology Admission Diagnosis Pneumonia DVT/PE PAF Palpitations Assessment/Plan Pneumonia, improving, management per Dr. Montano Recent bilat DVT, pulmonary embolism, having frequent nose bleeds while on Xarelto. Intolerant to Eliquis in the past secondary to recurrent conjunctival bleed of the eye. Patient started on Coumadin. INR 2.1 today, I will stop heparin and continue on Coumadin, continue to monitor INR, okay for discharge from cardiology standpoint Paroxysmal atrial fibrillation, had a reveal, monitoring showed improvement since he started on Multaq on June 22, 2017, no further episodes were reported. continue to monitor. Back pain, status post multiple injection, had epidural injection about 3 weeks ago. [id number] score is 3, yearly risk of stroke without oral anticoagulation is 3.2 percent. 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 Started on Coumadin. Conjunctival bleed on the right, improved at this time. Continue to monitor Palpitations, PVCs-maintained on Toprol-XL 25 mg daily. Unable to increased dose secondary to underlying borderline hypotension and bradycardia Stress test showed extracardiac attenuation with mild ischemia at the inferior wall and inferolateral wall, stress score is 4, SDS is 2, patient is asy mptomatic. Medical therapy is recommended no intervention is warranted. Echocardiogram done on July 05, 2018 showing normal left ventricular size with ejection fraction 55-65 percent, grade 2 diastolic dysfunction, mild MR, aortic valve sclerosis, PA 35 mmHg. Continue to monitor Mild bilateral carotid stenosis, nonobstructive disease, last ultrasound was done in May 2018, continue to monitor Lower extremities cramps in pain usually with exertion relieved by rest, reporting improvement, YOSEF was done in January 2017 and it was normal, venous Doppler showed DVT Hyperlipidemia, maintained on fenofibrate, last lipid profile was done on May 25, 2018 showing total cholesterol 189, HDL 53, triglyceride 196, LDL 97. Continue on current medication no changes are recommended, monitor lipids Kidney stone, urinary tract infection, had nephrostomy tube and stent, tube was removed on June 07, 2017, reporting improvement History of multiple surgeries in the past including tonsils, appendix, TURP, rotator cuff on both sides, kidney stones, EGD. Back surgery. Clinical Quality Measures DVT/VTE Risk/Contraindication: Risk Factor Score Per Nursin DYLON HERNANDEZ MD Mar 06, 2019 8:38 am POS
== END 2019-03-06 11:10 | disposition home or self-care (01) | DRG 175 ==
LOC: 4TH 13:56
PROVIDERS: ADMIT Internal Medicine; ATTEND Internal Medicine
DX: I26.99 Other pulmonary embolism without acute cor pulmonale (principal); R04.0 Epistaxis; I82.403 Acute embolism and thrombosis of unspecified deep veins of lower extremity, bilateral; J18.9 Pneumonia, unspecified organism; G47.33 Obstructive sleep apnea (adult) (pediatric); I48.0 Paroxysmal atrial fibrillation; I49.3 Ventricular premature depolarization; E78.5 Hyperlipidemia, unspecified; G62.9 Polyneuropathy, unspecified; I12.9 Hypertensive chronic kidney disease with stage 1 through stage 4 chronic kidney disease, or unspecified chronic kidney disease; N18.3 Chronic kidney disease, stage 3 (moderate); N40.0 Benign prostatic hyperplasia without lower urinary tract symptoms; K21.9 Gastro-esophageal reflux disease without esophagitis; K44.9 Diaphragmatic hernia without obstruction or gangrene; I65.23 Occlusion and stenosis of bilateral carotid arteries; M19.91 Primary osteoarthritis, unspecified site; M54.9 Dorsalgia, unspecified; Z87.11 Personal history of peptic ulcer disease; Z85.828 Personal history of other malignant neoplasm of skin; Z79.01 Long term (current) use of anticoagulants
CPT/HCPCS: 36415; 85027; 85049; 85610; 85730; 94760; 94762

== ENCOUNTER 2019-04-14 15:44 | Emergency (ER) | payer MEDICARE ==
[~2019-04-14] VITALS: Ht 172 cm; Wt 88.0 kg
[~2019-04-14 15:44] MED LIST changes: +WARF5TAB PO
[2019-04-14 16:08] LABS: BASOPHILS # (AUTO) 0.1 10^3/uL (0.0-0.1); BASOPHILS % (AUTO) 1 % (0-10); EOSINOPHILS # (AUTO) 0.1 10^3/uL (0.0-0.3); EOSINOPHILS % (AUTO) 1 % (0-10); HEMATOCRIT 39 % (40-54); HEMOGLOBIN 12.5 G/DL (13.3-17.7); LYMPHOCYTES % (AUTO) 20 % (12-44); MEAN CORPUSCULAR HEMOGLOBIN 33 PG (25-34); MEAN CORPUSCULAR HGB CONC 32 G/DL (32-36); MEAN CORPUSCULAR VOLUME 101 FL (80-99); MEAN PLATELET VOLUME 10.9 FL (7.4-10.4); MONOCYTES # (AUTO) 0.9 X 10^3 (0.0-1.0); MONOCYTES % (AUTO) 17 % (0-12); NEUTROPHILS # (AUTO) 3.1 X 10^3 (1.8-7.8); NEUTROPHILS % (AUTO) 61 % (42-75); PLATELET COUNT 213 10^3/uL (130-400); RED CELL DISTRIBUTION WIDTH 14.9 % (10.0-14.5)
[2019-04-14 16:23] LABS: INR 3.2 (0.8-1.4); PROTHROMBIN TIME PATIENT 34.2 SEC (12.2-14.7)
[2019-04-14 16:32] LABS: ALBUMIN 4.4 GM/DL (3.2-4.5); BILIRUBIN,TOTAL 0.2 MG/DL (0.1-1.0); CALCIUM 9.3 MG/DL (8.5-10.1); CREATININE SERUM 1.92 MG/DL (0.60-1.30); MAGNESIUM 2.3 MG/DL (1.6-2.4); POTASSIUM 4.9 MMOL/L (3.6-5.0); TOTAL PROTEIN 7.5 GM/DL (6.4-8.2)
--- NOTE | 2019-04-14 16:34 | ED Cardiac General ---
History of Present Illness General Chief Complaint: Chest Pain Stated Complaint: CHEST TIGHTNESS Nursing Triage Note: pt presents to ed with complaints of chest tightness, palpitations, and soa starting aprox 1300 today. Source: patient, old records Exam Limitations: no limitations History of Present Illness Date Seen by Provider: Apr 14, 2019 Time Seen by Provider: 16:00 Initial Comments This 89-year-old gentleman presents to the emergency room with a tightening in his throat and chest which he associates with atrial fibrillation. He is presently anticoagulated with warfarin. He is on Multaq and metoprolol for rhythm and rate control. He denies any unusual swelling. He is not particularly short of breath. Rate is fairly well controlled in the 90 to 120s range. NTG SL GENERAL COUNSEL: No ASA po GENERAL COUNSEL: No Allergies and Home Medications Allergies Coded Allergies: Penicillins (Verified Allergy, Severe, Anaphylaxis (pt tolerates Ceftriaxone), 02/26/19) iodine (Verified Allergy, Unknown, 02/26/19) Uncoded Allergies: SURGICAL GLUE (Allergy, Severe, "TOOK OFF SKIN", 06/04/17) Home Medications Acetaminophen 650 Mg Tablet.er, 650 MG PO TID PRN for PAIN-MILD, (Reported) Ascorbate Calcium/Bioflavonoid 1 Each Tablet, 1,000 MG PO 1200, (Reported) Calcium Carbonate/Vitamin D3 1 Each Tablet, 1 TAB PO 1200, (Reported) Cholecalciferol (Vitamin D3) 2,000 Unit Capsule, 2,000 UNIT PO 1200, (Reported) Cyanocobalamin (Vitamin B-12) 500 Mcg Tablet, 500 MCG PO 1200, (Reported) Diclofenac Sodium 100 Gm Gel..gram., TOP HS, (Reported) APPLY TO HANDS Dronedarone HCl 400 Mg Tablet, 400 MG PO BID, (Reported) Fenofibrate 160 Mg Tablet, 160 MG PO HS, (Reported) Folic Acid 0.4 Mg Tablet, 0.4 MG PO 1200, (Reported) Magnesium Oxide 400 Mg Capsule, 400 MG PO 1200, (Reported) Metoprolol Succinate 25 Mg Tab.er.24h, 25 MG PO HS, (Reported) Mv,Minerals/FA/Lycopene/Ginkgo 1 Each Tablet, 1 TAB PO 1200, (Reported) Omeprazole 20 Mg Capsule.dr, 20 MG PO DAILY PRN for HEARTBURN, (Reported) Warfarin Sodium 5 Mg Tablet, 5 MG PO DAILY Prescribed by: NOHEMI REGALADO on 03/05/19 1333 Patient Home Medication List Home Medication List Reviewed: Yes Review of Systems Review of Systems Constitutional: no symptoms reported EENTM: No Symptoms Reported Respiratory: No Symptoms Reported Cardiovascular: See HPI Gastrointestinal: No Symptoms Reported Genitourinary: No Symptoms Reported Musculoskeletal: no symptoms reported Skin: no symptoms reported Psychiatric/Neurological: No Symptoms Reported Endocrine: No Symptoms Reported Hematologic/Lymphatic: See HPI Past Ksrofyr-Pmyaav-Jvpflc Hx Past Med/Social Hx: Reviewed Nursing Past Med/Soc Hx Patient Social History Alcohol Use: Denies Use Recreational Drug Use: No Smoking Status: Never a Smoker 2nd Hand Smoke Exposure: No Recent Foreign Travel: No Contact w/Someone Who Travel: No Recent Infectious Disease Expo: No Recent Hopitalizations: Yes (RECENT DC 02/22/19) Physical Abuse: No Sexual Abuse: No Mistreated: No Fear: No Immunizations Up To Date PED Vaccines UTD: No Date of Pneumonia Vaccine: Feb 26, 2015 Date of Influenza Vaccine: Feb 24, 2019 Seasonal Allergies Seasonal Allergies: No Past Medical History Surgeries: Yes (kidney stone-lithrotripsy, back sx, link recorder, bowel resection, l shoul) Appendectomy, Orthopedic, Renal, Tonsillectomy Respiratory: Yes (wears O2 at night) Pulmonary Embolism Cardiac: Yes (HEART MONITOR, SEES DR KELLEY) Atrial Fibrillation, Deep Vein Thrombosis, High Cholesterol, Hypertension Neurological: Yes Neuropathy Reproductive Disorders: Yes Genitourinary: Yes Benign Prostatic Hyperpl, Bladder Infection, Kidney Stones, UTI-Chronic Gastrointestinal: Yes Gastroesophageal Reflux, Esophagitis, Hiatal Hernia, Ulcer Musculoskeletal: Yes Arthritis, Scoliosis, Chronic Back Pain Endocrine: No HEENT: No Cancer: Yes Skin Psychosocial: No Integumentary: No Blood Disorders: No Family Medical History Lung cancer Severe allergy 19 FATHER No Pertinent Family Hx Physical Exam Vital Signs Vital Signs - First Documented 04/14/19 16:05 Temp 36.8 Pulse 92 Resp 16 B/P (MAP) 126/85 (99) Pulse Ox 93 O2 Delivery Room Air Capillary Refill : Less Than 3 Seconds Height, Weight, BMI Height: 5'68.00" Weight: 165lbs. 5.0oz. 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 Skin: Normal Color, Warm/Dry Procedures/Interventions Suture Size: 2-0 Progress/Results/Core Measures Results/Orders Lab Results Laboratory Tests Test 04/14/19 16:02 Range/Units White Blood Count 5.0 4.3-11.0 10^3/uL Red Blood Count 3.81 L 4.35-5.85 10^6/uL Hemoglobin 12.5 L 13.3-17.7 G/DL Hematocrit 39 L 40-54 % Mean Corpuscular Volume 101 H 80-99 FL Mean Corpuscular Hemoglobin 33 25-34 PG Mean Corpuscular Hemoglobin Concent 32 32-36 G/DL Red Cell Distribution Width 14.9 H 10.0-14.5 % Platelet Count 213 130-400 10^3/uL Mean Platelet Volume 10.9 H 7.4-10.4 FL Neutrophils (%) (Auto) 61 42-75 % Lymphocytes (%) (Auto) 20 12-44 % Monocytes (%) (Auto) 17 H 0-12 % Eosinophils (%) (Auto) 1 0-10 % Basophils (%) (Auto) 1 0-10 % Neutrophils # (Auto) 3.1 1.8-7.8 X 10^3 Lymphocytes # (Auto) 1.0 1.0-4.0 X 10^3 Monocytes # (Auto) 0.9 0.0-1.0 X 10^3 Eosinophils # (Auto) 0.1 0.0-0.3 10^3/uL Basophils # (Auto) 0.1 0.0-0.1 10^3/uL Prothrombin Time 34.2 H 12.2-14.7 SEC INR Comment 3.2 H 0.8-1.4 Activated Partial Thromboplast Time 39 H 24-35 SEC Sodium Level 142 135-145 MMOL/L Potassium Level 4.9 3.6-5.0 MMOL/L Chloride Level 108 H 98-107 MMOL/L Carbon Dioxide Level 17 L 21-32 MMOL/L Anion Gap 17 H 5-14 MMOL/L Blood Urea Nitrogen 42 H 7-18 MG/DL Creatinine 1.92 H 0.60-1.30 MG/DL Estimat Glomerular Filtration Rate 33 BUN/Creatinine Ratio 22 Glucose Level 137 H 70-105 MG/DL Calcium Level 9.3 8.5-10.1 MG/DL Corrected Calcium 9.0 8.5-10.1 MG/DL Magnesium Level 2.3 1.6-2.4 MG/DL Total Bilirubin 0.2 0.1-1.0 MG/DL Aspartate Amino Transf (AST/SGOT) 37 H 5-34 U/L Alanine Aminotransferase (ALT/SGPT) 19 0-55 U/L Alkaline Phosphatase 37 L 40-136 U/L Myoglobin 55.8 10.0-92.0 NG/ML Troponin I < 0.028 <0.028 NG/ML Total Protein 7.5 6.4-8.2 GM/DL Albumin 4.4 3.2-4.5 GM/DL My Orders Orders - SANTIAGO RIGGS MD Cbc With Automated Diff (04/14/19 16:01) Magnesium (04/14/19 16:01) Chest 1 View, Ap/Pa Only (04/14/19 16:01) Ekg Tracing (04/14/19 16:01) Comprehensive Metabolic Panel (04/14/19 16:01) Myoglobin Serum (04/14/19 16:01) Protime With Inr (04/14/19 16:) Partial Thromboplastin Time (04/14/19 16:01) O2 (04/14/19 16:01) Monitor-Rhythm Ecg Trace Only (04/14/19 16:01) Lipid Panel (04/15/19 06:00) Ed Iv/Invasive Line Start (04/14/19 16:01) Troponin I (04/14/19 16:01) Vital Signs/I&O 04/14/19 04/14/19 16:05 16:05 Temp 36.8 Pulse 92 Resp 16 B/P (MAP) 126/85 (99) Pulse Ox 93 O2 Delivery Room Air Blood Pressure Mean: 99 POS Progress Progress Note : Progress Note Patient's rhythm spontaneously converted to sinus rhythm with no interventions. Workup was relatively unremarkable other than elevated creatinine which is chronic. Patient was encouraged to drink plenty of water. INR was slightly only supratherapeutic at 3.2. Because patient has had problems with supratherapeutic INR in the past and uncontrollable nosebleeds, I advised that he take only one quarter of a warfarin tablet (1.25 mg) for his next dose. I advised to follow-up with Dr. Kelley on Tuesday before taking his higher dose of warfarin on Tuesday. Patient was feeling much better after converting to sinus rhythm, and he remained in sinus rhythm until discharge. EKG #1: EKG Time: 15:49 Rate: 107 Rhythm: A Fib/Flutter Comment Atrial fibrillation with no ST elevation or depression. Left axis deviation by automated read. EKG #2: EKG Time: 16:22 Rate: 93 Rhythm: Normal Sinus Comment Sinus rhythm with no ST elevation or depression. First-degree AV block with HI interval of 224. This is a conversion from atrial fibrillation. Diagnostic Imaging Diagonstic Imaging: Xray Plain Films/CT/US/NM/MRI: chest Comments NAME: FRANTZ CONDE MED REC#: [id number] PT STATUS: REG ER : 1930 PHYSICIAN: SANTIAGO RIGGS MD ADMIT DATE: 04/14/19/ER Signed Date of Exam:04/14/19 CHEST 1 VIEW, AP/PA ONLY EXAMINATION: Chest radiograph, portable AP view. DATE: 04/14/2019 4:46 PM. INDICATION: 89-year-old male, chest pain. COMPARISON: February 28, 2019. 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 Heart size and mediastinal contours are unremarkable. There is no identified pneumothorax. There is no large pleural effusion. There is no identified focal airspace consolidation. IMPRESSION: No identified acute cardiopulmonary abnormality. Dictated by: Dictated on workstation # [id number] Dict: 04/14/191646 Trans: 04/14/191658 [facility] [id number] Interpreted by: DARY NARANJO MD Electronically signed by: DARY NARANJO MD 04/14/191658 Departure Impression Primary Impression: Paroxysmal atrial fibrillation Disposition: HOME, SELF-CARE Condition: Improved Departure-Patient Inst. Decision time for Depature: 17:54 Referrals: ILIANA WING MD (PCP/Family) Primary Care Physician Patient Instructions: Atrial Fibrillation, Warfarin Add. Discharge Instructions: For your next dose of warfarin take just one quarter tablet (1.25 mg) as your INR is just slightly high today at 3.2. Then resume your usual dosing. Contact Dr. Kelley's office on Tuesday to inquire about warfarin management. They may want you to have your INR checked again before you take the higher 5 mg dose of warfarin on Tuesday. Continue your other medications as previously prescribed. Follow-up in Dr. Kelley's office as soon as possible. Return to the emergency room if you have any further problems or concerns. All discharge instructions reviewed with patient and/or family. Voiced understanding. Copy Copies To 1: DYLON KELLEY MD Copies To 2: ILIANA WING MD, JOSHUA T MD Apr 14, 2019 16:34 POS
--- NOTE | 2019-04-14 16:50 | Diagnostic Imaging Report ---
EXAMINATION: Chest radiograph, portable AP view. DATE: 04/14/2019 4:46 PM. INDICATION: 89-year-old male, chest pain. COMPARISON: February 28, 2019. 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 Heart size and mediastinal contours are unremarkable. There is no identified pneumothorax. There is no large pleural effusion. There is no identified focal airspace consolidation. IMPRESSION: No identified acute cardiopulmonary abnormality. Dictated by: Dictated on workstation # [id number]
[2019-04-14 18:06] VITALS: BP 128/78
== END 2019-04-14 18:06 | disposition home or self-care (01) ==
LOC: EDUNIT# 15:44 → ER 15:45
DX: I48.0 Paroxysmal atrial fibrillation (principal); I10 Essential (primary) hypertension; E78.00 Pure hypercholesterolemia, unspecified; K21.9 Gastro-esophageal reflux disease without esophagitis; G62.9 Polyneuropathy, unspecified; Z85.828 Personal history of other malignant neoplasm of skin; Z87.440 Personal history of urinary (tract) infections; Z87.442 Personal history of urinary calculi; Z79.01 Long term (current) use of anticoagulants; Z88.0 Allergy status to penicillin; Z88.8 Allergy status to other drugs, medicaments and biological substances; Z90.49 Acquired absence of other specified parts of digestive tract; Z90.89 Acquired absence of other organs; Z99.81 Dependence on supplemental oxygen; Z86.711 Personal history of pulmonary embolism; Z86.718 Personal history of other venous thrombosis and embolism; Z80.1 Family history of malignant neoplasm of trachea, bronchus and lung
CPT/HCPCS: 36415; 71045; 80053; 83735; 83874; 84484; 85025; 85610; 85730; 93005; 93041

== ENCOUNTER 2019-05-17 10:30 | Outpatient (RCR) | payer MEDICARE ==
[~2019-05-17 10:30] MED LIST changes: -METO-387 PO; +MTP25TSR PO; +OMEP-280 PO; -OMEP20CA13 PO; -TAMS0.4C98 PO; +TMSL.4C PO
== END 2019-05-18 14:13 | disposition home or self-care (01) ==
DX: M62.81 Muscle weakness (generalized) (principal); B02.9 Zoster without complications; E78.5 Hyperlipidemia, unspecified; D69.6 Thrombocytopenia, unspecified; H53.8 Other visual disturbances; H81.10 Benign paroxysmal vertigo, unspecified ear; H91.90 Unspecified hearing loss, unspecified ear; I10 Essential (primary) hypertension; I26.99 Other pulmonary embolism without acute cor pulmonale; I49.5 Sick sinus syndrome; I82.402 Acute embolism and thrombosis of unspecified deep veins of left lower extremity; J30.9 Allergic rhinitis, unspecified; K21.9 Gastro-esophageal reflux disease without esophagitis; N40.0 Benign prostatic hyperplasia without lower urinary tract symptoms; N50.0 Atrophy of testis

== ENCOUNTER 2019-05-29 10:29 | Outpatient (RCR) | payer MEDICARE ==
[2019-03-07 14:30] LABS: INR 2.4 (0.8-1.4); PROTHROMBIN TIME PATIENT 27.4 SEC (12.2-14.7)
[2019-03-12 14:41] LABS: INR 4.9 (0.8-1.4)
[2019-03-12 14:46] LABS: PROTHROMBIN TIME PATIENT 48.3 SEC (12.2-14.7)
[2019-03-15 11:13] LABS: INR 2.5 (0.8-1.4)
[2019-03-27 11:18] LABS: INR 6.7 (0.8-1.4); PROTHROMBIN TIME PATIENT 61.2 SEC (12.2-14.7)
[2019-04-02 11:49] LABS: INR 1.5 (0.8-1.4); PROTHROMBIN TIME PATIENT 18.9 SEC (12.2-14.7)
[2019-04-12 11:23] LABS: INR 2.8 (0.8-1.4); PROTHROMBIN TIME PATIENT 30.4 SEC (12.2-14.7)
[2019-04-26 11:22] LABS: INR 2.9 (0.8-1.4)
[2019-05-29 10:45] LABS: INR 3.8 (0.8-1.4); PROTHROMBIN TIME PATIENT 39.4 SEC (12.2-14.7)
== END 2019-06-05 | disposition home or self-care (01) ==
LOC: LAB 10:29
PROVIDERS: ATTEND Internal Medicine Cardiovascular Disease
DX: Z51.81 Encounter for therapeutic drug level monitoring (principal); Z79.01 Long term (current) use of anticoagulants
CPT/HCPCS: 36415; 85610

== ENCOUNTER 2019-06-19 11:53 | Outpatient (RCR) | payer MEDICARE ==
[2019-06-07 14:05] LABS: INR 1.9 (0.8-1.4); PROTHROMBIN TIME PATIENT 22.9 SEC (12.2-14.7)
[~2019-06-19 11:53] MED LIST changes: +ACHD5005 PO; -HYDR-3812 PO; -OMEP-280 PO; +OMEP20CA18 PO
[2019-06-19 12:16] LABS: INR 2.4 (0.8-1.4); PROTHROMBIN TIME PATIENT 27.1 SEC (12.2-14.7)
[2019-07-18 11:33] LABS: INR 2.3 (0.8-1.4); PROTHROMBIN TIME PATIENT 25.9 SEC (12.2-14.7)
== END 2019-09-05 | disposition home or self-care (01) ==
LOC: LAB 11:53
PROVIDERS: ATTEND Internal Medicine Cardiovascular Disease
DX: Z51.81 Encounter for therapeutic drug level monitoring (principal); Z79.01 Long term (current) use of anticoagulants
CPT/HCPCS: 36415; 85610

== ENCOUNTER → 2019-10-23 | Outpatient (CLI) | payer MEDICARE ==
[~2019-10-23] MED LIST changes: -WARF5TAB PO; +WARF5TAB2 PO
[2019-10-23 09:46] LABS: ALBUMIN 4.1 GM/DL (3.2-4.5)
[2019-10-23 09:47] LABS: CALCIUM 9.3 MG/DL (8.5-10.1)
[2019-10-23 09:48] LABS: TOTAL PROTEIN 7.1 GM/DL (6.4-8.2)
[2019-10-23 09:50] LABS: BILIRUBIN,TOTAL 0.4 MG/DL (0.1-1.0)
[2019-10-23 09:52] LABS: CREATININE SERUM 1.91 MG/DL (0.60-1.30)
== END ==
LOC: LAB 09:16
PROVIDERS: ATTEND Internal Medicine Cardiovascular Disease
DX: E78.2 Mixed hyperlipidemia (principal); I44.4 Left anterior fascicular block; I48.0 Paroxysmal atrial fibrillation; I65.23 Occlusion and stenosis of bilateral carotid arteries
CPT/HCPCS: 36415; 80053; 80061

== ENCOUNTER 2019-11-21 13:01 | Outpatient (RCR) | payer MEDICARE ==
[2019-11-12 14:50] VITALS: BP 129/67
--- NOTE | 2019-11-12 14:50 | NUR ---
ARRIVES FOR ABX INFUSION FOR RIGHT ARM CELLULITIS. RIGHT ARM DIFFUSELY EDEMATOUS, DARKER PINK THAN LEFT ARM, AND WARM TO TOUCH. PT REPORTS MILD TO MODERATE PAIN WITH TOUCH TO RIGHT ARM.
--- NOTE | 2019-11-13 08:29 | NUR ---
CONTACTED DR WING'S OFFICE TO CLARIFY DURATION FOR VANCOMYCIN- X 10 DAYS IS OK, WILL HAVE CLOSE FOLLOWUP AND ADJUST DURATION IF NEEDED (PER ZACHARY)
[2019-11-13 14:00] LABS: POTASSIUM 4.4 MMOL/L (3.6-5.0)
[2019-11-13 14:01] LABS: CALCIUM 8.9 MG/DL (8.5-10.1)
[2019-11-13 14:05] LABS: CREATININE SERUM 1.81 MG/DL (0.60-1.30)
--- NOTE | 2019-11-13 14:48 | Diagnostic Imaging Report ---
INDICATION: Line placement. TECHNIQUE: Single-view chest at 02:19 p.m. CORRELATION STUDY: 04/14/2019. FINDINGS: A left-sided central line has been placed via the upper extremity. The tip courses superiorly into the soft tissue of the neck likely malpositioned into the left internal jugular vein. This will need to be retracted at least 9 to 10 cm prior to re-advancement. Loop recorder device over the left chest. IMPRESSION: 1. Left upper extremity central line has been placed. Tip is currently malpositioned into the left neck, likely internal jugular vein. Report given and faxed to Eliz Lyle APRN at 2:45 PM 11/13/2019/cb Dictated by: Dictated on workstation # [id number]
--- NOTE | 2019-11-13 14:50 | Diagnostic Imaging Report ---
INDICATION: Line placement. TECHNIQUE: Single view chest 2:44 PM. CORRELATION STUDY: 11/13/2019 FINDINGS: Since prior study, left-sided central line has been retracted and repositioned. Tip over the right paramediastinal region likely just at the proximal aspect of the superior vena cava. Remainder of examination stable. IMPRESSION: 1. Repositioning of left-sided central line. Tip now projects over the expected location of the high aspect of the SVC. Dictated by: Dictated on workstation # [id number]
[2019-11-13] MEDS: VANCOMYCIN 1 GM/NS 250 ML IVPB IV SCH ×2 (15:09)
[2019-11-13 16:15] VITALS: BP 133/85
[2019-11-14 13:00] VITALS: BP 129/68
[2019-11-14] MEDS: VANCOMYCIN 1 GM/NS 250 ML IVPB IV SCH ×2 (13:31)
[2019-11-15 13:15] VITALS: BP 117/65
[2019-11-15] MEDS: VANCOMYCIN 1250 MG/NS 250 ML IVPB IV SCH ×2 (13:21)
[2019-11-16] MEDS: VANCOMYCIN 1250 MG/NS 250 ML IVPB IV SCH ×2 (13:04)
[2019-11-16 13:08] VITALS: BP 0/0
[2019-11-17 13:30] VITALS: BP 160/77
[2019-11-17] MEDS: VANCOMYCIN 1250 MG/NS 250 ML IVPB IV SCH ×2 (14:00)
[2019-11-18 14:00] VITALS: BP 170/91
[2019-11-18] MEDS: VANCOMYCIN 1250 MG/NS 250 ML IVPB IV SCH ×2 (14:25)
[2019-11-19] MEDS: VANCOMYCIN 1250 MG/NS 250 ML IVPB IV SCH ×2 (13:33)
[2019-11-19 14:50] VITALS: BP 151/77
[2019-11-20] MEDS: VANCOMYCIN 1250 MG/NS 250 ML IVPB IV SCH ×2 (13:20)
[2019-11-20 14:42] VITALS: BP_SYST 112; BP_SYST 147; BP_DIAS 59; BP_DIAS 73
[~2019-11-21] VITALS: Ht 172.7 cm; Wt 85.1 kg
[~2019-11-21 13:01] MED LIST changes: +ACET-78 PO; +TRAM50TA3 PO; +TROUGH ORDER-PHARMACY XX NR; +VANCOMYCIN 1500 MG/NS 500 ML IVPB IV NR; +VITAMIN D3 PO; +WARF2.5T82 PO
[2019-11-21] MEDS: VANCOMYCIN 1250 MG/NS 250 ML IVPB IV SCH ×2 (13:21)
[2019-11-21 14:49] VITALS: BP 145/75
== END 2019-11-21 14:49 | disposition home or self-care (01) ==
LOC: SDC 13:01
PROVIDERS: ATTEND Nurse Practitioner Family
DX: Z45.2 Encounter for adjustment and management of vascular access device (principal); L03.113 Cellulitis of right upper limb; L02.413 Cutaneous abscess of right upper limb
CPT/HCPCS: 36415; 36569; 71045; 76937; 80048; 80202; 96365; 96366; 99211

== ENCOUNTER → 2019-12-27 | Outpatient (CLI) | payer MEDICARE ==
[~2019-12-27] MED LIST changes: -TROUGH ORDER-PHARMACY XX NR; -VANCOMYCIN 1500 MG/NS 500 ML IVPB IV NR
[2019-12-27 14:44] LABS: POTASSIUM 4.5 MMOL/L (3.6-5.0)
[2019-12-27 14:46] LABS: CALCIUM 9.3 MG/DL (8.5-10.1)
[2019-12-27 14:47] LABS: TOTAL PROTEIN 6.8 GM/DL (6.4-8.2)
[2019-12-27 14:49] LABS: BILIRUBIN,TOTAL 0.3 MG/DL (0.1-1.0)
[2019-12-27 14:51] LABS: CREATININE SERUM 2.21 MG/DL (0.60-1.30)
== END ==
LOC: LAB 14:13
PROVIDERS: ATTEND Physician Assistant
DX: E78.2 Mixed hyperlipidemia (principal); I48.0 Paroxysmal atrial fibrillation; E78.5 Hyperlipidemia, unspecified
CPT/HCPCS: 36415; 80053; 80061

== ENCOUNTER 2020-01-01 13:11 | Outpatient (RCR) | payer MEDICARE ==
[2019-10-10 14:17] LABS: INR 1.9 (0.8-1.4)
[2019-10-30 11:34] LABS: INR 2.4 (0.8-1.4); PROTHROMBIN TIME PATIENT 26.6 SEC (12.2-14.7)
[~2020-01-01 13:11] MED LIST changes: +ASPI-1238 PO; -ASPI-983 PO; -WARF2.5T82 PO; +WRF2.5T PO
[2020-01-01 13:35] LABS: PROTHROMBIN TIME PATIENT 22.6 SEC (12.2-14.7)
== END 2020-01-08 | disposition home or self-care (01) ==
LOC: LAB 13:11
PROVIDERS: ATTEND Internal Medicine Cardiovascular Disease
DX: Z51.81 Encounter for therapeutic drug level monitoring (principal); Z79.01 Long term (current) use of anticoagulants
CPT/HCPCS: 36415; 85610

== ENCOUNTER 2020-06-23 11:02 | Emergency (ER) | payer MEDICARE ==
[~2020-06-23] VITALS: Ht 172.7 cm; Wt 88.4 kg
[~2020-06-23 11:02] MED LIST changes: -CYAN500T62 PO; +CYAN500T8 PO
--- NOTE | 2020-06-23 11:21 | ED Cardiac General ---
History of Present Illness General Chief Complaint: Cardiac/General Problems Stated Complaint: AFIB, DIZZINESS Nursing Triage Note: PT TO RM 1 BY WHEELCHAIR WITH COMPLAINT OF DIZZINESS AND SHAKINESS. STATES FEEL IS IN AFIB. Source: patient Exam Limitations: no limitations History of Present Illness Date Seen by Provider: Jun 23, 2020 Time Seen by Provider: 11:07 Initial Comments Patient presents ER by private conveyance from home with chief complaint that has been having some problems with palpitations that he relates to his atrial fibrillation however he had an inconclusive rhythm on his pulse oximeter at home and felt very dizzy today especially whenever he would stand up. He has not passed out but says he felt dizziness had like he was going to fall over when changing positions. He is on Multaq, metoprolol and warfarin for atrial fibrillation known to Dr. Kelley. No chest pain or shortness of air. Primary care by Dr. Tam. History of bilateral DVTs and pulmonary embolisms. Intolerant of Eliquis and Xarelto. Paroxysmal atrial fibrillation with an implanted monitor that has since stopped working. Frequent palpitations on Toprol XL 25 mg daily and history of borderline hypotension and bradycardia. Stress test showed extracardiac attenuation with mild ischemia in the inferior and inferolateral wall. Patient was asymptomatic so medical therapy was indicated. Echocardiogram 2019 showed EF of 55 to 65% grade 2 diastolic dysfunction. Hyperlipidemia. Allergies and Home Medications Allergies Coded Allergies: Penicillins (Verified Allergy, Severe, Anaphylaxis (pt tolerates Ceftriaxone), 02/26/19) iodine (Verified Allergy, Unknown, 02/26/19) Uncoded Allergies: SURGICAL GLUE (Allergy, Severe, "TOOK OFF SKIN", 06/04/17) Home Medications Acetaminophen 500 Mg Tablet, 500 MG PO TID, (Reported) Ascorbate Calcium/Bioflavonoid 1 Each Tablet, 1,000 MG PO 1200, (Reported) Calcium Carbonate/Vitamin D3 1 Each Tablet, 1 TAB PO 1200, (Reported) Cyanocobalamin (Vitamin B-12) 500 Mcg Tablet, 500 MCG PO 1200, (Reported) Diclofenac Sodium 100 Gm Gel..gram., TOP HS, (Reported) APPLY TO HANDS Dronedarone HCl 400 Mg Tablet, 400 MG PO BID, (Reported) Fenofibrate 160 Mg Tablet, 160 MG PO HS, (Reported) Folic Acid 0.4 Mg Tablet, 0.4 MG PO 1200, (Reported) Magnesium Oxide 400 Mg Capsule, 400 MG PO 1200, (Reported) Metoprolol Succinate 25 Mg Tab.er.24h, 25 MG PO HS, (Reported) Mv,Minerals/FA/Lycopene/Ginkgo 1 Each Tablet, 1 TAB PO 1200, (Reported) Omeprazole 20 Mg Capsule.dr, 20 MG PO DAILY PRN for HEARTBURN, (Reported) Tramadol HCl 50 Mg Tablet, 50 MG PO BID PRN for PAIN-MODERATE (5-7), (Reported) Warfarin Sodium 2.5 Mg Tablet, 2.5 MG PO DAILY, (Reported) [Vitamin D3] , 2,000 PO DAILY, (Reported) Patient Home Medication List Home Medication List Reviewed: Yes Review of Systems Review of Systems Constitutional: No chills; dizziness; No fever EENTM: No Blurred Vision, No Double Vision Respiratory: Denies Cough, Denies Shortness of Air Cardiovascular: Denies Chest Pain, Denies Edema; Irregular Heart Rate, Lightheadedness, Palpitations; Denies Syncope Gastrointestinal: Denies Abdomen Distended, Denies Abdominal Pain Genitourinary: Denies Burning, Denies Discharge Musculoskeletal: No back pain, No joint pain Psychiatric/Neurological: Denies Anxiety, Denies Depressed All Other Systems Reviewed Negative Unless Noted: Yes Past Amzhxzc-Fembjl-Cimbwo Hx Patient Social History Alcohol Use: Denies Use Smoking Status: Never a Smoker 2nd Hand Smoke Exposure: No Recent Infectious Disease Expo: No Recent Hopitalizations: Yes Immunizations Up To Date PED Vaccines UTD: No Date of Pneumonia Vaccine: Feb 26, 2015 Date of Influenza Vaccine: Feb 24, 2019 Seasonal Allergies Seasonal Allergies: No Past Medical History Surgeries: Yes (kidney stone-lithrotripsy, back sx, link recorder, bowel resection, l shoul) Appendectomy, Orthopedic, Renal, Tonsillectomy Respiratory: Yes (wears O2 at night) Pulmonary Embolism Cardiac: Yes (HEART MONITOR, SEES DR KELLEY) Atrial Fibrillation, Deep Vein Thrombosis, High Cholesterol, Hypertension Neurological: Yes Neuropathy Reproductive Disorders: Yes Genitourinary: Yes Benign Prostatic Hyperpl, Bladder Infection, Kidney Stones, UTI-Chronic Gastrointestinal: Yes Gastroesophageal Reflux, Esophagitis, Hiatal Hernia, Ulcer Musculoskeletal: Yes Arthritis, Scoliosis, Chronic Back Pain Endocrine: No HEENT: No Cancer: Yes Skin Psychosocial: No Integumentary: No Blood Disorders: No Family Medical History Lung cancer Severe allergy 19 FATHER No Pertinent Family Hx Physical Exam Vital Signs Vital Signs - First Documented 06/23/20 11:05 Temp 35.9 Pulse 55 Resp 21 B/P (MAP) 134/72 (92) Pulse Ox 94 O2 Delivery Room Air Capillary Refill : Less Than 3 Seconds Height, Weight, BMI Height: 5'68.00" Weight: 165lbs. 5.0oz. 79.553848if; 29.00 BMI Method:Stated General Appearance: Anxious, Chronically ill, Mild Distress HEENT: PERRL/EOMI, Pharynx Normal, Moist Mucous Membranes Neck: Full Range of Motion, Normal Inspection Respiratory: Chest Non Tender, Lungs Clear, Normal Breath Sounds, No Accessory Muscle Use, No Respiratory Distress Cardiovascular: No Gallop, No JVD, Normal Peripheral Pulses, Other (Irregular rate, 50 to 60 bpm) Gastrointestinal: Normal Bowel Sounds, Non Tender, Soft Extremity: Normal Capillary Refill, Normal Inspection, No Pedal Edema Neurologic/Psychiatric: Alert, Oriented x3, No Motor/Sensory Deficits, Normal Mood/Affect, anchorer II-XII Norm as Tested Skin: Normal Color, Warm/Dry Procedures/Interventions Suture Size: 2-0 Progress/Results/Core Measures Results/Orders Lab Results Laboratory Tests Test 06/23/20 11:15 Range/Units White Blood Count 5.6 4.3-11.0 10^3/uL Red Blood Count 3.62 L 4.30-5.52 10^6/uL Hemoglobin 12.1 L 13.3-17.7 g/dL Hematocrit 37 L 40-54 % Mean Corpuscular Volume 102 H 80-99 fL Mean Corpuscular Hemoglobin 33 25-34 pg Mean Corpuscular Hemoglobin Concent 33 32-36 g/dL Red Cell Distribution Width 14.0 10.0-14.5 % Platelet Count 173 130-400 10^3/uL Mean Platelet Volume 10.9 9.0-12.2 fL Immature Granulocyte % (Auto) 0 % Neutrophils (%) (Auto) 46 42-75 % Lymphocytes (%) (Auto) 28 12-44 % Monocytes (%) (Auto) 23 H 0-12 % Eosinophils (%) (Auto) 1 0-10 % Basophils (%) (Auto) 1 0-10 % Neutrophils # (Auto) 2.6 1.8-7.8 10^3/uL Lymphocytes # (Auto) 1.6 1.0-4.0 10^3/uL Monocytes # (Auto) 1.3 H 0.0-1.0 10^3/uL Eosinophils # (Auto) 0.1 0.0-0.3 10^3/uL Basophils # (Auto) 0.1 0.0-0.1 10^3/uL Immature Granulocyte # (Auto) 0.0 0.0-0.1 10^3/uL Neutrophils % (Manual) 39 % Lymphocytes % (Manual) 36 % Monocytes % (Manual) 24 % Eosinophils % (Manual) 1 % Blood Morphology Comment NORMAL Prothrombin Time 27.9 H 12.2-14.7 SEC INR Comment 2.6 H 0.8-1.4 Activated Partial Thromboplast Time 32 24-35 SEC Sodium Level 142 135-145 MMOL/L Potassium Level 4.2 3.6-5.0 MMOL/L Chloride Level 108 H 98-107 MMOL/L Carbon Dioxide Level 24 21-32 MMOL/L Anion Gap 10 5-14 MMOL/L Blood Urea Nitrogen 36 H 7-18 MG/DL Creatinine 2.32 H 0.60-1.30 MG/DL Estimat Glomerular Filtration Rate 27 BUN/Creatinine Ratio 16 Glucose Level 76 70-105 MG/DL Calcium Level 8.8 8.5-10.1 MG/DL Corrected Calcium 8.7 8.5-10.1 MG/DL Magnesium Level 2.3 1.6-2.4 MG/DL Total Bilirubin 0.4 0.1-1.0 MG/DL Aspartate Amino Transf (AST/SGOT) 21 5-34 U/L Alanine Aminotransferase (ALT/SGPT) 17 0-55 U/L Alkaline Phosphatase 47 40-136 U/L Myoglobin 82.4 10.0-92.0 NG/ML Troponin I < 0.028 <0.028 NG/ML B-Type Natriuretic Peptide 209.8 H <100.0 PG/ML Total Protein 7.1 6.4-8.2 GM/DL Albumin 4.1 3.2-4.5 GM/DL My Orders Orders - YAMILET WHITE Cbc With Automated Diff (06/23/20 11:14) Magnesium (06/23/20 11:14) Chest 1 View, Ap/Pa Only (06/23/20 11:14) Ekg Tracing (06/23/20 11:14) Comprehensive Metabolic Panel (06/23/20 11:14) Myoglobin Serum (06/23/20 11:14) Protime With Inr (06/23/20 11:14) Partial Thromboplastin Time (06/23/20 11:14) O2 (06/23/20 11:14) Monitor-Rhythm Ecg Trace Only (06/23/20 11:14) Lipid Panel (06/24/20 06:00) Ed Iv/Invasive Line Start (06/23/20 11:14) BNP (06/23/20 11:14) Troponin I (06/23/20 11:14) Manual Differential (06/23/20 11:15) Vital Signs/I&O 06/23/20 11:05 Temp 35.9 Pulse 55 Resp 21 B/P (MAP) 134/72 (92) Pulse Ox 94 O2 Delivery Room Air Blood Pressure Mean: 92 Progress Progress Note : Time: 11:18 Progress Note Patient has a irregular sinus rhythm will have couplets of 2 followed by a short pause. WI interval is tight and rhythm wanders between 50 and 90 bpm. He is not in atrial fibrillation at this time. He did not take any extra of his medication that he is aware of. Suspect an atypical anginal presentation could be causing this sudden change in his rhythm so we will cover him. Patient declined aspirin because he is on warfarin. He is not having any pain so no nitroglycerin is indicated. We will then discussed the case with rigging engineer. Initial ECG Impression Date: Jun 23, 2020 Initial ECG Impression Time: 11:09 Initial ECG Rate: 94 Initial ECG Rhythm: Normal Sinus Initial ECG Intervals: Normal Initial ECG Impression: Normal, Nonspecific Changes Diagnostic Imaging Diagonstic Imaging: Xray Plain Films/CT/US/NM/MRI: chest Comments NAME: FRANTZ CONDE MED REC#: [id number] PT STATUS: REG ER : 1932 PHYSICIAN: YAMILET WHITE MD ADMIT DATE: 06/23/20/ER Signed Date of Exam:06/23/20 CHEST 1 VIEW, AP/PA ONLY HISTORY: Chest pain, dizziness and shakiness. Atrial fibrillation. COMPARISON: 11/13/2019 TECHNIQUE: Frontal view of the chest FINDINGS: A contour stitcher device is noted. Multiple leads overlie the chest. Lung volumes are mildly large. There is mild flattening and eventration of the diaphragm. No focal consolidation is seen. There is no pleural effusion or pneumothorax. The cardiac silhouette is normal in size. IMPRESSION: 1. No acute pulmonary abnormality. Dictated by: Dictated on workstation # [id number] Dict: 06/23/20 1139 Trans: 06/23/20 1146 CVB [id number] Interpreted by: VINCENT GUAMAN MD Electronically signed by: VINCENT GUAMAN MD 06/23/20 1146 Reviewed: Reviewed by Me Consults : Consulting Physician: DYLON KELLEY MD Consults Notes Discussed the case with Dr. Simon and that the EKG demonstrates a heart rate in the 90s. He feels of the monitor is probably missed reading the rate and he would increase the metoprolol from 25-50 a day and follow-up tomorrow in the clinic. Departure Impression Primary Impression: Dysrhythmia, cardiac Qualified Codes: I49.9 - Cardiac arrhythmia, unspecified Additional Impression: Dizziness Disposition: 01 HOME, SELF-CARE Condition: Stable Departure-Patient Inst. Decision time for Depature: 14:23 Referrals: DYLON KELLEY MD, RICK D MD (PCP/Family) Primary Care Physician Patient Instructions: Dizziness, Adult ED Add. Discharge Instructions: Your heart rate is not very well controlled and saw Dr. Kelley has opted to increase your metoprolol to 50 mg a day. Take one 25 mg tablet when you get home and then take your other 25 mg tablet tonight at your usual time. If you need more of the medicine I have sent a prescription for 50 mg tablets to be taken once a day. Call Dr. Kelley's office first thing in the morning at 8:00 and request a same- day appointment per his wishes. If you pass out or have chest pain please return to the ER promptly. All discharge instructions reviewed with patient and/or family. Voiced understanding. Scripts Metoprolol Succinate (Metoprolol Succinate) 50 Mg Tab.er.24h 50 MG PO DAILY for 14 Days, #14 TAB 0 Refills Prov: YAMILET WHITE 06/23/20 YAMILET WHITE Jun 23, 2020 11:21
[2020-06-23 11:27] LABS: BASOPHILS # (AUTO) 0.1 10^3/uL (0.0-0.1); BASOPHILS % (AUTO) 1 % (0-10); EOSINOPHILS # (AUTO) 0.1 10^3/uL (0.0-0.3); EOSINOPHILS % (AUTO) 1 % (0-10); HEMATOCRIT 37 % (40-54); HEMOGLOBIN 12.1 g/dL (13.3-17.7); LYMPHOCYTES # (AUTO) 1.6 10^3/uL (1.0-4.0); LYMPHOCYTES % (AUTO) 28 % (12-44); MEAN CORPUSCULAR HEMOGLOBIN 33 pg (25-34); MEAN CORPUSCULAR HGB CONC 33 g/dL (32-36); MEAN CORPUSCULAR VOLUME 102 fL (80-99); MEAN PLATELET VOLUME 10.9 fL (9.0-12.2); MONOCYTES # (AUTO) 1.3 10^3/uL (0.0-1.0); MONOCYTES % (AUTO) 23 % (0-12); NEUTROPHILS # (AUTO) 2.6 10^3/uL (1.8-7.8); NEUTROPHILS % (AUTO) 46 % (42-75); PLATELET COUNT 173 10^3/uL (130-400); WHITE BLOOD COUNT 5.6 10^3/uL (4.3-11.0)
--- NOTE | 2020-06-23 11:42 | Diagnostic Imaging Report ---
HISTORY: Chest pain, dizziness and shakiness. Atrial fibrillation. COMPARISON: 11/13/2019 TECHNIQUE: Frontal view of the chest FINDINGS: A contract implementation analyst device is noted. Multiple leads overlie the chest. Lung volumes are mildly large. There is mild flattening and eventration of the diaphragm. No focal consolidation is seen. There is no pleural effusion or pneumothorax. The cardiac silhouette is normal in size. IMPRESSION: 1. No acute pulmonary abnormality. Dictated by: Dictated on workstation # [id number]
[2020-06-23 11:43] LABS: ALBUMIN 4.1 GM/DL (3.2-4.5); INR 2.6 (0.8-1.4); POTASSIUM 4.2 MMOL/L (3.6-5.0); PROTHROMBIN TIME PATIENT 27.9 SEC (12.2-14.7)
[2020-06-23 11:44] LABS: CALCIUM 8.8 MG/DL (8.5-10.1)
[2020-06-23 11:45] LABS: TOTAL PROTEIN 7.1 GM/DL (6.4-8.2)
[2020-06-23 11:47] LABS: BILIRUBIN,TOTAL 0.4 MG/DL (0.1-1.0)
[2020-06-23 11:48] LABS: EOSINOPHILS % (MANUAL) 1 %; LYMPHOCYTES % (MANUAL) 36 %; MONOCYTES % (MANUAL) 24 %; NEUTROPHILS % (MANUAL) 39 %; RBC MORPH NORMAL
[2020-06-23 11:49] LABS: CREATININE SERUM 2.32 MG/DL (0.60-1.30)
[2020-06-23 11:51] LABS: MAGNESIUM 2.3 MG/DL (1.6-2.4)
[2020-06-23] MEDS ORDERED: METO50TA7 PO (14:26)
[2020-06-23 14:38] VITALS: BP 108/63
== END 2020-06-23 14:38 | disposition home or self-care (01) ==
LOC: EDUNIT# 11:02 → ER 11:04
DX: I49.9 Cardiac arrhythmia, unspecified (principal); E78.00 Pure hypercholesterolemia, unspecified; I10 Essential (primary) hypertension; K21.9 Gastro-esophageal reflux disease without esophagitis; I48.91 Unspecified atrial fibrillation; F41.9 Anxiety disorder, unspecified; Z88.0 Allergy status to penicillin; Z91.041 Radiographic dye allergy status; Z86.711 Personal history of pulmonary embolism; Z86.718 Personal history of other venous thrombosis and embolism; Z85.828 Personal history of other malignant neoplasm of skin; Z80.1 Family history of malignant neoplasm of trachea, bronchus and lung; Z79.01 Long term (current) use of anticoagulants
CPT/HCPCS: 36415; 71045; 80053; 83735; 83874; 83880; 84484; 85007; 85027; 85610; 85730; 93005; 93041

== ENCOUNTER → 2020-07-25 | Outpatient (CLI) | payer MEDICARE ==
[~2020-07-25] MED LIST changes: -FOLI0.4T2 PO; +FOLI0.4T6 PO; +METO50TA7 PO
== END ==
LOC: LABNPT 06:57
PROVIDERS: ATTEND Nurse Practitioner Family
DX: Z01.89 Encounter for other specified special examinations (principal); Z20.822 Contact with and (suspected) exposure to COVID-19
CPT/HCPCS: 87635

== ENCOUNTER → 2020-08-04 | Outpatient (CLI) | payer MEDICARE | LOC: LABNPT 08:34 | PROVIDERS: ATTEND Nurse Practitioner Family | DX: G47.50 Parasomnia, unspecified (principal); G47.10 Hypersomnia, unspecified; R06.83 Snoring; Z20.822 Contact with and (suspected) exposure to COVID-19 | CPT/HCPCS: 87635 ==

== ENCOUNTER → 2020-08-06 10:30 | Day surgery (SDC) | payer MEDICARE ==
[~2020-08-06] VITALS: Ht 172 cm; Wt 89.0 kg
[2020-08-06 09:44] VITALS: BP 118/67
[~2020-08-06 10:30] MED LIST changes: +LIDOCAINE 1% INJ 20 ML 20 ML VIAL ONE
--- NOTE | 2020-08-06 11:41 | Implantation of Loop Monitor ---
Implant of Loop Monitior IMPLANTATION OF LOOP MONITOR REPORT DATE OF PROCEDURE: 08/06/20 PREOP DIAGNOSIS: Paroxysmal atrial fibrillation POSTOP DIAGNOSIS: Paroxysmal atrial fibrillation PROCEDURE DETAILS: The patient is a 89 male with history of paroxysmal atrial fibrillation requiring long-term surveillance. Therefore implantable loop recorder was discussed and agreed with the patient. Informed consent was taken. All risks and complications were discussed at length. The patient was draped and prepped in the usual sterile fashion. Local anesthesia was lidocaine, which was given in the substernal area close to the 4th intercostal space. Loop monitor [employer] with serial number [id number] was implanted according to the protocol. Steri- Strips were placed at the end of the procedure. There were no complications and the patient tolerated the procedure well. The device was interrogated with a voltage of. ANESTHESIA: Local anesthesia with lidocaine. COMPLICATIONS: None CONTRAST/FLUOROSCOPY: None CONCLUSION: Successful implantation of loop monitor with no complication FINAL DIAGNOSIS: Paroxysmal atrial fibrillation Palpitation Hypertension DYLON HERNANDEZ MD Aug 06, 2020 11:41 am
== END | disposition home or self-care (01) ==
LOC: CATH 09:27
PROVIDERS: ATTEND Internal Medicine Cardiovascular Disease
DX: I48.0 Paroxysmal atrial fibrillation (principal); I10 Essential (primary) hypertension; G47.36 Sleep related hypoventilation in conditions classified elsewhere; K21.9 Gastro-esophageal reflux disease without esophagitis; I50.30 Unspecified diastolic (congestive) heart failure; I65.23 Occlusion and stenosis of bilateral carotid arteries; E78.5 Hyperlipidemia, unspecified; Z79.01 Long term (current) use of anticoagulants; Z88.0 Allergy status to penicillin; Z91.041 Radiographic dye allergy status; Z91.048 Other nonmedicinal substance allergy status; Z87.442 Personal history of urinary calculi
CPT/HCPCS: 33285; 33286

== ENCOUNTER 2020-08-06 19:25 | Outpatient (CLI) | payer MEDICARE ==
[~2020-08-06 19:25] MED LIST changes: -DRON400T2 PO; +DRON400T6 PO; -LIDOCAINE 1% INJ 20 ML 20 ML VIAL ONE
== END 2020-08-07 06:20 | disposition home or self-care (01) ==
LOC: SLEEP 19:25
PROVIDERS: ATTEND Nurse Practitioner Family
DX: G47.30 Sleep apnea, unspecified (principal); G47.50 Parasomnia, unspecified; G47.10 Hypersomnia, unspecified; G47.36 Sleep related hypoventilation in conditions classified elsewhere; I48.91 Unspecified atrial fibrillation; I50.30 Unspecified diastolic (congestive) heart failure; K21.9 Gastro-esophageal reflux disease without esophagitis; I26.99 Other pulmonary embolism without acute cor pulmonale
CPT/HCPCS: 95811

== ENCOUNTER → 2020-10-31 | Outpatient (CLI) | payer MEDICARE ==
[~2020-10-31] MED LIST changes: +DICL100G13 TOP; -DICL100G31 TOP
== END ==
LOC: LABNPT 06:24
PROVIDERS: ATTEND Nurse Practitioner Family
DX: Z20.822 Contact with and (suspected) exposure to COVID-19 (principal)
CPT/HCPCS: 87635

== ENCOUNTER 2020-11-03 19:35 | Outpatient (CLI) | payer MEDICARE | END 2020-11-04 06:00 | disposition home or self-care (01) | LOC: SLEEP 19:35 | PROVIDERS: ATTEND Nurse Practitioner Family | DX: Z01.89 Encounter for other specified special examinations (principal); G47.33 Obstructive sleep apnea (adult) (pediatric); K21.9 Gastro-esophageal reflux disease without esophagitis; I50.30 Unspecified diastolic (congestive) heart failure; I48.91 Unspecified atrial fibrillation; G47.36 Sleep related hypoventilation in conditions classified elsewhere; Z20.822 Contact with and (suspected) exposure to COVID-19 | CPT/HCPCS: 95811 ==

== ENCOUNTER → 2020-11-12 | Outpatient (CLI) | payer MEDICARE | LOC: LABNPT 07:24 | PROVIDERS: ATTEND Nurse Practitioner Family | DX: Z53.9 Procedure and treatment not carried out, unspecified reason (principal) | CPT/HCPCS: 87635 ==

== ENCOUNTER → 2020-11-18 | Outpatient (CLI) | payer MEDICARE | LOC: CARD 10:30 | PROVIDERS: ATTEND Internal Medicine Cardiovascular Disease | DX: I08.0 Rheumatic disorders of both mitral and aortic valves (principal); I11.9 Hypertensive heart disease without heart failure | CPT/HCPCS: 93306 ==

== ENCOUNTER 2021-03-25 13:53 | Emergency (ER) | payer MEDICARE ==
[~2021-03-25] VITALS: Ht 177 cm; Wt 81.0 kg
[~2021-03-25 13:53] MED LIST changes: -LEVO500T80 PO; +LEVO500T81 PO
--- NOTE | 2021-03-25 14:32 | ED Head Injury ---
General Chief Complaint: Head/Cervical Problems Stated Complaint: FALL-HEAD INJURY Nursing Triage Note: PT AMB W CANE TO FT1, PT STATES FELL ON TUESDAY. PT DENIES NECK PAIN OR LOC, STATES HAS PAIN 3/10, FEELING OF FULLNESS TO HEAD, FEELING OF SLOSHINESS TO L SIDE HEAD Source: patient Exam Limitations: no limitations (TRAN DOWELL APRN) History of Present Illness Date Seen by Provider: Mar 25, 2021 Time Seen by Provider: 14:19 Initial Comments This is a well-appearing 89-year-old male who presented to the ER with his son for concerns of left-sided headache, pressure behind his left eye post a fall 5 days ago. Patient states that he was walking and tripped on the cement and hit his head on a statue and then the concrete. He denies any loss of consciousness. No neck pain. States that he did not have any symptoms until 2 days ago when he started having a headache and a "sloshing sensation" whenever he walks. Reports pressure behind his left eye. Denies changes in vision, vision loss. Has not taken anything prior to arrival. Notes that he does take Warfarin 2.5mg daily for his A-fib. Has not had INR checked for over a month. Denies any weakness of upper or lower extremities. No dizziness, nausea, or vomiting. (TRAN DOWELL GRAIN ELEVATOR MAN) Allergies and Home Medications Allergies Coded Allergies: Penicillins (Verified Allergy, Severe, Anaphylaxis (pt tolerates Ceftriaxo ne), 02/26/19) iodine (Verified Allergy, Unknown, 02/26/19) Uncoded Allergies: SURGICAL GLUE (Allergy, Severe, "TOOK OFF SKIN", 06/04/17) Patient Home Medication List Home Medication List Reviewed: Yes (TRAN DOWELL APRN) Acetaminophen (Acetaminophen) 500 Mg Tablet, 500 MG PO TID, (Reported) Entered as Reported by: LILY KISER on 11/12/19 182 Ascorbate Calcium/Bioflavonoid (Selina-C 1,000 mg Tablet) 1 Each Tablet, 1,000 MG PO 1200, (Reported) Entered as Reported by: CHARLES LYNN on 05/26/17 1115 Calcium Carbonate/Vitamin D3 (Calcium 500 + D Tablet) 1 Each Tablet, 1 TAB PO 1200, (Reported) Entered as Reported by: CHARLES LYNN on 05/26/17 1115 Cyanocobalamin (Vitamin B-12) (Vitamin B-12) 500 Mcg Tablet, 500 MCG PO 1200, (Reported) Entered as Reported by: CHARLES LYNN on 05/26/17 111 Diclofenac Sodium (Diclofenac Sodium) 100 Gm Gel..gram., TOP HS, (Reported) Entered as Reported by: CHARLES LYNN on 02/20/19 1326 Dronedarone HCl (Multaq) 400 Mg Tablet, 400 MG PO BID, (Reported) Entered as Reported by: CHARLES LYNN on 02/20/19 1326 Fenofibrate (Fenofibrate) 160 Mg Tablet, 160 MG PO HS, (Reported) Entered as Reported by: CHARLES LYNN on 03/30/17 1014 Folic Acid (Folic Acid) 0.4 Mg Tablet, 0.4 MG PO 1200, (Reported) Entered as Reported by: CHARLES LYNN on 05/26/17 111 Magnesium Oxide (Magnesium) 400 Mg Capsule, 400 MG PO 1200, (Reported) Entered as Reported by: CHARLES LYNN on 05/26/17 1115 Metoprolol Succinate (Metoprolol Succinate) 25 Mg Tab.er.24h, 25 MG PO HS, (Reported) Entered as Reported by: CHARLES LYNN on 03/30/17 1014 Metoprolol Succinate (Metoprolol Succinate) 50 Mg Tab.er.24h, 50 MG PO DAILY Prescribed by: YAMILET WHITE on 06/23/20 1426 Mv,Minerals/FA/Lycopene/Ginkgo (One Daily For Men 50+ Adv Tab) 1 Each Tablet, 1 TAB PO 1200, (Reported) Entered as Reported by: CHARLES LYNN on 05/26/17 1115 Omeprazole (Omeprazole) 20 Mg Capsule.dr, 20 MG PO DAILY PRN for HEARTBURN, (Reported) Entered as Reported by: CHARLES LYNN on 03/30/17 1020 Tramadol HCl (Tramadol HCl) 50 Mg Tablet, 50 MG PO BID PRN for PAIN-MODERATE (5- 7), (Reported) Entered as Reported by: LILY KISER on 11/12/19 182 Warfarin Sodium (Warfarin Sodium) 2.5 Mg Tablet, 2.5 MG PO DAILY, (Reported) Entered as Reported by: LILY KISER on 11/12/191828 [Vitamin D3] , 2,000 PO DAILY, (Reported) Entered as Reported by: LILY KISER on 11/12/191828 Review of Systems Review of Systems Constitutional: no symptoms reported Eyes: See HPI Ears, Nose, Mouth, Throat: no symptoms reported Respiratory: no symptoms reported Cardiovascular: no symptoms reported Gastrointestinal: no symptoms reported Genitourinary: no symptoms reported Musculoskeletal: no symptoms reported Skin: other (skin tear on left knee and left elbow) Psychiatric/Neurological: No Symptoms Reported Endocrine: No Symptoms Reported Hematologic/Lymphatic: No Symptoms Reported (TRAN DOWELL APRN) Past Xvokssc-Mozqva-Vqpvnx Hx Patient Social History Tobacco Use?: No Substance use?: No Alcohol Use?: No Pt feels they are or have been: No (TRAN DOWELL APRN) Immunizations Up To Date PED Vaccines UTD: No Second COVID19 Vaccination Marvin: HAS HAD 2ND DOSE MODERNA COVID19 Vaccine 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 (TRAN DOWELL APRN) Seasonal Allergies Seasonal Allergies: No (TRAN DOWELL APRN) Past Medical History Surgeries: Yes (kidney stone-lithrotripsy, back sx, link recorder, bowel resection, l shoul) Appendectomy, Orthopedic, Renal, Tonsillectomy Respiratory: Yes (wears O2 at night) Pulmonary Embolism Cardiac: Yes (HEART MONITOR, SEES DR HERNANDEZ) Atrial Fibrillation, Deep Vein Thrombosis, High Cholesterol, Hypertension Neurological: Yes Neuropathy Reproductive Disorders: Yes Genitourinary: Yes Benign Prostatic Hyperpl, Bladder Infection, Kidney Stones, UTI-Chronic Gastrointestinal: Yes Gastroesophageal Reflux, Esophagitis, Hiatal Hernia, Ulcer Musculoskeletal: Yes Arthritis, Scoliosis, Chronic Back Pain Endocrine: No HEENT: No Cancer: Yes Skin Psychosocial: No Integumentary: No Blood Disorders: No (TRAN DOWELL APRN) Family Medical History Lung cancer Severe allergy 19 FATHER No Pertinent Family Hx (TRAN DOWELL APRN) Physical Exam Vital Signs Vital Signs - First Documented 03/25/21 14:00 Temp 36.2 Pulse 72 Resp 18 B/P (MAP) 119/68 (85) Pulse Ox 95 (SANTIAGO RIGGS MD) Vital Signs Capillary Refill : Less Than 3 Seconds (TRAN DOWELL APRN) Height, Weight, BMI Height: 5'68.00" Weight: 165lbs. 5.0oz. 79.408353aq; 25.00 BMI Method:Stated General Appearance: WD/WN, no apparent distress HEENT: PERRL/EOMI, normal ENT inspection, pharynx normal Neck: non-tender, full range of motion, supple, normal inspection Cardiovascular: normal peripheral pulses, regular rate, rhythm, no murmur Respiratory: lungs clear, normal breath sounds, no respiratory distress, no accessory muscle use Gastrointestinal: normal bowel sounds, non tender, soft Back: normal inspection, no vertebral tenderness Extremities: normal range of motion, non-tender, normal inspection Psychiatric: alert, oriented x 3 Crainal Nerves: normal hearing, normal speech, PERRL; No facial asymmetry, No f acial droop Coordination/Gait: normal gait Motor/Sensory: no motor deficit, no sensory deficit, no pronator drift Skin: normal color, warm/dry Lymphatic: no adenopathy (TRAN DOWELL APRN) Sharon Coma Score Best Eye Response: (4) Open Spontaneously Best Verbal Response: (5) Oriented Best Motor Response: (6) Obeys Commands Leland Total: 15 (TRAN DOWELL APRN) Procedures/Interventions Suture Size: 2-0 (TRAN DOWELL APRN) Progress/Results/Core Measures Results/Orders Lab Results Laboratory Tests Test 03/25/21 15:04 Range/Units White Blood Count 6.6 4.3-11.0 10^3/uL Red Blood Count 3.52 L 4.30-5.52 10^6/uL Hemoglobin 11.9 L 13.3-17.7 g/dL Hematocrit 37 L 40-54 % Mean Corpuscular Volume 105 H 80-99 fL Mean Corpuscular Hemoglobin 34 25-34 pg Mean Corpuscular Hemoglobin Concent 32 32-36 g/dL Red Cell Distribution Width 14.4 10.0-14.5 % Platelet Count 175 130-400 10^3/uL Mean Platelet Volume 10.6 9.0-12.2 fL Immature Granulocyte % (Auto) 0 % Neutrophils (%) (Auto) 67 42-75 % Lymphocytes (%) (Auto) 13 12-44 % Monocytes (%) (Auto) 18 H 0-12 % Eosinophils (%) (Auto) 1 0-10 % Basophils (%) (Auto) 1 0-10 % Neutrophils # (Auto) 4.4 1.8-7.8 X 10^3 Lymphocytes # (Auto) 0.9 L 1.0-4.0 X 10^3 Monocytes # (Auto) 1.2 H 0.0-1.0 X 10^3 Eosinophils # (Auto) 0.1 0.0-0.3 10^3/uL Basophils # (Auto) 0.0 0.0-0.1 10^3/uL Immature Granulocyte # (Auto) 0.0 0.0-0.1 10^3/uL Prothrombin Time 29.0 H 12.2-14.7 SEC INR Comment 2.7 H 0.8-1.4 Sodium Level 143 135-145 MMOL/L Potassium Level 4.7 3.6-5.0 MMOL/L Chloride Level 108 H 98-107 MMOL/L Carbon Dioxide Level 25 21-32 MMOL/L Anion Gap 10 5-14 MMOL/L Blood Urea Nitrogen 40 H 7-18 MG/DL Creatinine 2.27 H 0.60-1.30 MG/DL Estimat Glomerular Filtration Rate 27 BUN/Creatinine Ratio 18 Glucose Level 108 H 70-105 MG/DL Calcium Level 9.7 8.5-10.1 MG/DL Corrected Calcium 9.8 8.5-10.1 MG/DL Total Bilirubin 0.3 0.1-1.0 MG/DL Aspartate Amino Transf (AST/SGOT) 20 5-34 U/L Alanine Aminotransferase (ALT/SGPT) 15 0-55 U/L Alkaline Phosphatase 29 L 40-136 U/L Total Protein 6.7 6.4-8.2 GM/DL Albumin 3.9 3.2-4.5 GM/DL (SANTIAGO RIGGS MD) Medications Given in ED Current Medications Medications Dose Ordered Sig/Jennifer Route Start Time Stop Time Status Last Admin Dose Admin Prothrombin Complex Concent (Human) 1,500 unit ONCE ONCE IV 03/25/21 18:30 03/25/21 18:31 DC 03/25/21 19:00 1,500 UNIT (SANTIAGO RIGGS MD) Vital Signs/I&O 03/25/21 03/25/21 14:00 19:28 Temp 36.2 Pulse 72 76 Resp 18 18 B/P (MAP) 119/68 (85) 148/75 Pulse Ox 95 97 (SANTIAGO RIGGS MD) Blood Pressure Mean: 85 Progress Progress Note : Progress Note 1415: Patient examined and in no acute distress. No focal or gross neurological deficits appreciated on exam. Orders placed IV, PT/INR, basic labs, and CT head and cervical spine. 1450: 20G IV to RFA x1 attempt. Blood draw collected at this time. Patient assisted with transferring to wheel chair. 1536: Radiologist called results of CT head. Orders placed for CXR. 1612: Consulted trauma surgeon Dr. Slater. Recommends transfer for neurosurgery as patient is now symptomatic 5 days out from initial injury. Discussed plan of care with patient and son. They are agreeable to transfer. 1618: [facility] control contacted to assist with transfer as [facility] and [facility] are both at capacity. 1700: Patient examined. In no acute distress. States his symptoms are "about the same". Informed that we are waiting transfer facility. 1800: No transfer update from [facility] at this time. 1813: Contacted [facility] for possible transfer. Pending return call. Updated patient son about possible facility transfer. Patient awake, alert, no new symptoms. 183: [facility] returned call at this time. Accepted transfer to [facility]. Dr. Phillips is the accepting provider. Would like patient to receive PCC with no Vit K. Orders placed. See MAR for administration times. 1908: Contacted [facility] for transfer. VSS. Current BP 138/80. (TRAN DOWELL GRAIN ELEVATOR MAN) Initial ECG Impression Date: Mar 25, 2021 Initial ECG Impression Time: 18:50 Initial ECG Rate: 70 Initial ECG Rhythm: Normal Sinus Initial ECG Intervals SR, rate 70's, WV-227, QT-399, QTc-431. Initial ECG Impression: Nonspecific Changes (TRAN DOWELL APRN) Diagnostic Imaging Diagonstic Imaging: Xray Plain Films/CT/US/NM/MRI: chest [facility] [place] [place] NAME: AMAYAFRANTZ Juan MED REC#: [id number] PT STATUS: REG ER : 1930 PHYSICIAN: TRAN DOWELL APRN ADMIT DATE: 03/25/21/ER Signed Date of Exam:03/25/21 CHEST 1 VIEW, AP/PA ONLY EXAMINATION: Chest, one view. HISTORY: Chest pain after recent fall. COMPARISON: None available. FINDINGS: Heart size and pulmonary vasculature are normal. The lungs are clear without consolidation, pleural effusion, or pneumothorax. Degenerative changes of the thoracic spine. Osseous structures are otherwise intact. Left shoulder arthroplasty. IMPRESSION: 1. No acute radiographic abnormality in the chest. Dictated by: Dictated on workstation # [id number] Dict: 03/25/21 161 Trans: 03/25/21 1637 [id number] Interpreted by: MARIE FERNANDEZ DO Electronically signed by: MARIE FERNANDEZ DO 03/25/211636 Reviewed: Reviewed by Ok Diagonstic Imaging: CT Plain Films/CT/US/NM/MRI: head Comments [facility] [place] [place] NAME: AMAYAFRANTZ MED REC#: [id number] PT STATUS: REG ER : 1930 PHYSICIAN: TRAN DOWELL GRAIN ELEVATOR MAN ADMIT DATE: 03/25/21/ER Signed Date of Exam:03/25/21 CT HEAD/CERVICAL SPINE WO EXAMINATION: CT head and CT cervical spine without contrast. TECHNIQUE: Multiple contiguous axial images were obtained through the brain and cervical spine without the use of intravenous contrast. Sagittal and coronal reformations through the cervical spine were then performed. All CT scans use one or more of the following dose optimizing techniques: Automated exposure control, MA and/or KvP adjustment based on patient size and exam type or iterative reconstruction. HISTORY: Head and neck injury. COMPARISON: None available. FINDINGS: There is a small left cerebral convexity subdural hematoma. No significant mass effect or midline shift. The ventricles are normal in size and configuration. Basilar cisterns are patent. There are no intra- or extra-axial fluid collections. There is no intracranial hemorrhage. The orbits are normal. Sphenoid sinus is opacified. Mastoid air cells are clear. No soft tissue abnormality is seen. No osseous lesions or fractures are seen. The alignment of the cervical spine is normal. No fracture is seen. Vertebral body heights are normal. The craniocervical junction is normal. 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 Disc height loss is most pronounced at C6-C7. There is ggmz-wb-judtqqrq facet arthropathy. There is no spinal canal stenosis. No soft tissue abnormality is seen in the neck. There is an incompletely imaged opacity in the left lung apex. IMPRESSION: 1. Small left cerebral convexity subdural hematoma without significant mass effect or midline shift. 2. No cervical spine fracture. 3. Incompletely imaged left apical airspace opacity, chest CT recommended for further evaluation. Critical findings called to Dr. Dowell by Dr. Correa on 03/25/2021 at 3:36 p.m. Dictated by: Dictated on workstation # [id number] Dict: 03/25/21 1530 Trans: 03/25/21 1627 [id number] Interpreted by: DARBY CORREA MD Electronically signed by: DARBY CORREA MD 03/25/21 1627 Reviewed: Reviewed by Me (TRAN DOWELL APRN) Departure Impression Primary Impression: Traumatic subdural hematoma Additional Impression: Supratherapeutic INR Disposition: XFER SHT-TRM HOSP Condition: Stable Transfer Transfer Reason: Exceeds level of care Time Spoke to Accepting Phy: 18:56 Transfer Progress Notes Discussed case with [facility] transfer team. Accepted patient admission. Transfer Time: 18:56 Transfer Facility: [facility] Method of Transfer: EMS (TRAN DOWELL APRN) Departure-Patient Inst. Referrals: ILIANA WING MD (PCP/Family) Primary Care Physician ATTENDING PHYSICIAN NOTE: I was physically present as attending physician in the emergency department during the care of this patient, but I was not directly involved in the decision making or delivery of care for this patient. (SANTIAGO RIGGS MD) Copy Copies To 1: ILIANA WING MD, STORMY D APRN Mar 25, 2021 14:32 SANTIAGO RIGGS MD Mar 25, 2021 20:17
[2021-03-25 15:13] LABS: BASOPHILS % (AUTO) 1 % (0-10); EOSINOPHILS # (AUTO) 0.1 10^3/uL (0.0-0.3); EOSINOPHILS % (AUTO) 1 % (0-10); HEMATOCRIT 37 % (40-54); HEMOGLOBIN 11.9 g/dL (13.3-17.7); LYMPHOCYTES # (AUTO) 0.9 X 10^3 (1.0-4.0); LYMPHOCYTES % (AUTO) 13 % (12-44); MEAN CORPUSCULAR HEMOGLOBIN 34 pg (25-34); MEAN CORPUSCULAR HGB CONC 32 g/dL (32-36); MEAN CORPUSCULAR VOLUME 105 fL (80-99); MEAN PLATELET VOLUME 10.6 fL (9.0-12.2); MONOCYTES # (AUTO) 1.2 X 10^3 (0.0-1.0); MONOCYTES % (AUTO) 18 % (0-12); NEUTROPHILS # (AUTO) 4.4 X 10^3 (1.8-7.8); NEUTROPHILS % (AUTO) 67 % (42-75); PLATELET COUNT 175 10^3/uL (130-400); WHITE BLOOD COUNT 6.6 10^3/uL (4.3-11.0)
[2021-03-25 15:22] LABS: ALBUMIN 3.9 GM/DL (3.2-4.5); POTASSIUM 4.7 MMOL/L (3.6-5.0)
[2021-03-25 15:23] LABS: INR 2.7 (0.8-1.4)
[2021-03-25 15:24] LABS: CALCIUM 9.7 MG/DL (8.5-10.1)
[2021-03-25 15:25] LABS: TOTAL PROTEIN 6.7 GM/DL (6.4-8.2)
[2021-03-25 15:27] LABS: BILIRUBIN,TOTAL 0.3 MG/DL (0.1-1.0)
[2021-03-25 15:28] LABS: CREATININE SERUM 2.27 MG/DL (0.60-1.30)
--- NOTE | 2021-03-25 15:38 | Diagnostic Imaging Report ---
EXAMINATION: CT head and CT cervical spine without contrast. TECHNIQUE: Multiple contiguous axial images were obtained through the brain and cervical spine without the use of intravenous contrast. Sagittal and coronal reformations through the cervical spine were then performed. All CT scans use one or more of the following dose optimizing techniques: Automated exposure control, MA and/or KvP adjustment based on patient size and exam type or iterative reconstruction. HISTORY: Head and neck injury. COMPARISON: None available. FINDINGS: There is a small left cerebral convexity subdural hematoma. No significant mass effect or midline shift. The ventricles are normal in size and configuration. Basilar cisterns are patent. There are no intra- or extra-axial fluid collections. There is no intracranial hemorrhage. The orbits are normal. Sphenoid sinus is opacified. Mastoid air cells are clear. No soft tissue abnormality is seen. No osseous lesions or fractures are seen. The alignment of the cervical spine is normal. No fracture is seen. Vertebral body heights are normal. The craniocervical junction is normal. 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 Disc height loss is most pronounced at C6-C7. There is awar-oe-zncyivvz facet arthropathy. There is no spinal canal stenosis. No soft tissue abnormality is seen in the neck. There is an incompletely imaged opacity in the left lung apex. IMPRESSION: 1. Small left cerebral convexity subdural hematoma without significant mass effect or midline shift. 2. No cervical spine fracture. 3. Incompletely imaged left apical airspace opacity, chest CT recommended for further evaluation. Critical findings called to Dr. Sol by Dr. Correa on 03/25/2021 at 3:36 p.m. Dictated by: Dictated on workstation # [id number]
--- NOTE | 2021-03-25 16:19 | Diagnostic Imaging Report ---
EXAMINATION: Chest, one view. HISTORY: Chest pain after recent fall. COMPARISON: None available. FINDINGS: Heart size and pulmonary vasculature are normal. The lungs are clear without consolidation, pleural effusion, or pneumothorax. Degenerative changes of the thoracic spine. Osseous structures are otherwise intact. Left shoulder arthroplasty. IMPRESSION: 1. No acute radiographic abnormality in the chest. Dictated by: Dictated on workstation # [id number]
[2021-03-25] MEDS ORDERED: HUMAN PROTHROMBIN COMPLX(PCC) 500 UNIT (KCENTRA) IV ONE (18:30)
[2021-03-25 19:28] VITALS: BP 148/75
== END 2021-03-25 19:31 | disposition short-term general hospital (02) ==
LOC: EDUNIT# 13:53 → ER 13:55
DX: S06.5X0A Traumatic subdural hemorrhage without loss of consciousness, initial encounter (principal); R79.1 Abnormal coagulation profile; I10 Essential (primary) hypertension; K21.9 Gastro-esophageal reflux disease without esophagitis; I48.91 Unspecified atrial fibrillation; G89.29 Other chronic pain; M54.9 Dorsalgia, unspecified; R40.2410 Glasgow coma scale score 13-15, unspecified time; Z86.711 Personal history of pulmonary embolism; Z86.718 Personal history of other venous thrombosis and embolism; Z79.01 Long term (current) use of anticoagulants; Z79.891 Long term (current) use of opiate analgesic; Z79.899 Other long term (current) drug therapy; W22.8XXA Striking against or struck by other objects, initial encounter
CPT/HCPCS: 36415; 70450; 71045; 72125; 80053; 85025; 85610

== ENCOUNTER → 2021-04-07 | Outpatient (CLI) | payer MEDICARE ==
--- NOTE | 2021-04-07 14:25 | Diagnostic Imaging Report ---
PROCEDURE: CT head without contrast. TECHNIQUE: Multiple contiguous axial images were obtained through the brain without the use of intravenous contrast. Auto Exposure Controls were utilized during the CT exam to meet ALARA standards for radiation dose reduction. INDICATION: Subdural hematoma, follow-up. COMPARISON: Correlation is made with prior head CT from 03/25/2021. FINDINGS: A normal evolution of the left cerebral convexity subdural hematoma is noted. There is overall generalized decrease in density of the hematoma when compared with prior exam. There are some small areas of residual hyperdensity along the left frontal convexity. Overall thickness does appear to be slightly greater but the areas of thickening are low density and similar to cerebrospinal fluid density. This does not appear to exert significant mass effect. There is no midline shift. The ventricular size is stable. No new area of hemorrhage is detected. Cisterns are patent. Visualized paranasal sinuses appear to be fairly clear. IMPRESSION: Evolution of the left cerebral convexity subdural hematoma showing some slight increase in thickness but no significant mass effect is identified. Dictated by: Dictated on workstation # [id number]
== END ==
LOC: RAD 13:45
DX: S06.5X9A Traumatic subdural hemorrhage with loss of consciousness of unspecified duration, initial encounter (principal); X58.XXXA Exposure to other specified factors, initial encounter
CPT/HCPCS: 70450

== ENCOUNTER → 2021-05-05 | Outpatient (CLI) | payer MEDICARE ==
--- NOTE | 2021-05-05 12:29 | Diagnostic Imaging Report ---
INDICATION: Intracranial hemorrhage, followup. TECHNIQUE: Multiple contiguous axial images were obtained through the brain without the use of intravenous contrast. Auto Exposure Controls were utilized during the CT exam to meet ALARA standards for radiation dose reduction. COMPARISON: 04/07/2021. FINDINGS: Compared to the prior study, the low-density subdural hematoma in the left convexity appears to be slightly smaller with a maximal diameter of about 1.4 cm. This compares to a diameter of about 1.8 cm in the same location on the prior study. There is no new hemorrhage seen. There is no intraparenchymal bleed. There is no significant midline shift. The ventricles are normal in size. The calvarial windows are unremarkable. Opacification of the left sphenoid sinus is again noted. IMPRESSION: There is a mild decrease in the size of the left-sided low-density subdural hematoma, compatible with a chronic subdural hematoma. There is no new hemorrhage seen. There is no intraparenchymal abnormality or ventricular dilatation. Dictated by: Dictated on workstation # [id number]
== END ==
LOC: RAD 11:15
DX: S06.5X9D Traumatic subdural hemorrhage with loss of consciousness of unspecified duration, subsequent encounter (principal); X58.XXXD Exposure to other specified factors, subsequent encounter
CPT/HCPCS: 70450

== ENCOUNTER 2021-06-02 16:02 | Emergency (ER) | payer MEDICARE ==
--- NOTE | 2021-06-02 17:17 | ED Headache ---
General Chief Complaint: Head/Cervical Problems Stated Complaint: HEADACHE Nursing Triage Note: PT AMB TO ER WITH FAMILY TO FT WITH C/O HEADACHE X3 DAYS. PT HAD FORMER BRAIN BLEED IN MAR WITH RECENT CT DONE BEGINING OF MAY THAT SHOWED "SCABBING" OVER THAT BLEED Source: patient Exam Limitations: no limitations (RADHA CHAVARRIA APRN) History of Present Illness Date Seen by Provider: Jun 02, 2021 Time Seen by Provider: 17:16 Initial Comments To ER by son with reports of left-sided headache/pressure for 3 days no injury. He had a left-sided subdural hematoma just prior to Thanksgiving after a fall and was transferred to [facility] in [place]. No surgical intervention was performed.He is no longer on any anticoagulants. Timing/Duration: other (3 days) Severity/Quality: pressure Location: parietal Prior Headaches/Recent Trauma: occasional headaches Associated Symptoms: denies symptoms (RADHA CHAVARRIA APRN) Allergies and Home Medications Allergies Coded Allergies: Penicillins (Verified Allergy, Severe, Anaphylaxis (pt tolerates Ceftriaxone), 02/26/19) iodine (Verified Allergy, Unknown, 02/26/19) Uncoded Allergies: SURGICAL GLUE (Allergy, Severe, "TOOK OFF SKIN", 06/04/17) Patient Home Medication List Home Medication List Reviewed: Yes (RADHA CHAVARRIA APRN) Acetaminophen (Acetaminophen) 500 Mg Tablet, 500 MG PO TID, (Reported) Entered as Reported by: LILY KISER on 11/12/19 1829 Ascorbate Calcium/Bioflavonoid (Selina-C 1,000 mg Tablet) 1 Each Tablet, 1,000 MG PO 1200, (Reported) Entered as Reported by: CHARLES LYNN on 05/26/17 1115 Calcium Carbonate/Vitamin D3 (Calcium 500 + D Tablet) 1 Each Tablet, 1 TAB PO 1200, (Reported) Entered as Reported by: CHARLES LYNN on 05/26/17 1115 Cyanocobalamin (Vitamin B-12) (Vitamin B-12) 500 Mcg Tablet, 500 MCG PO 1200, (Reported) Entered as Reported by: CHARLES LYNN on 05/26/17 1115 Diclofenac Sodium (Diclofenac Sodium) 100 Gm Gel..gram., TOP HS, (Reported) Entered as Reported by: CHARLES LYNN on 02/20/19 1326 Dronedarone HCl (Multaq) 400 Mg Tablet, 400 MG PO BID, (Reported) Entered as Reported by: CHARLES LYNN on 02/20/19 1326 Fenofibrate (Fenofibrate) 160 Mg Tablet, 160 MG PO HS, (Reported) Entered as Reported by: CHARLES LYNN on 03/30/17 1014 Folic Acid (Folic Acid) 0.4 Mg Tablet, 0.4 MG PO 1200, (Reported) Entered as Reported by: CHARLES LYNN on 05/26/17 1115 Magnesium Oxide (Magnesium) 400 Mg Capsule, 400 MG PO 1200, (Reported) Entered as Reported by: CHARLES LYNN on 05/26/17 1115 Metoprolol Succinate (Metoprolol Succinate) 25 Mg Tab.er.24h, 25 MG PO HS, (Reported) Entered as Reported by: CHARLES LYNN on 03/30/17 1014 Metoprolol Succinate (Metoprolol Succinate) 50 Mg Tab.er.24h, 50 MG PO DAILY Prescribed by: YAMILET WHITE on 06/23/20 1426 Mv,Minerals/FA/Lycopene/Ginkgo (One Daily For Men 50+ Adv Tab) 1 Each Tablet, 1 TAB PO 1200, (Reported) Entered as Reported by: CHARLES LYNN on 05/26/17 111 Omeprazole (Omeprazole) 20 Mg Capsule.dr, 20 MG PO DAILY PRN for HEARTBURN, (Reported) Entered as Reported by: CHARLES LYNN on 03/30/17 102 Tramadol HCl (Tramadol HCl) 50 Mg Tablet, 50 MG PO BID PRN for PAIN-MODERATE (5- 7), (Reported) Entered as Reported by: LILY KISER on 11/12/191828 Warfarin Sodium (Warfarin Sodium) 2.5 Mg Tablet, 2.5 MG PO DAILY, (Reported) Entered as Reported by: LILY KISER on 11/12/191828 [Vitamin D3] , 2,000 PO DAILY, (Reported) Entered as Reported by: LILY KISER on 11/12/191828 Review of Systems Review of Systems Constitutional: see HPI Eyes: No Symptoms Reported Ears, Nose, Mouth, Throat: no symptoms reported Respiratory: no symptoms reported Cardiovascular: no symptoms reported Genitourinary: no symptoms reported Musculoskeletal: no symptoms reported Skin: no symptoms reported Psychiatric/Neurological: See HPI, Headache (RADHA CHAVARRIA APRN) Past Ewoxiwk-Ywhoxm-Qcgdqa Hx Patient Social History Tobacco Use?: No Substance use?: No Alcohol Use?: No (RADHA CHAVARRIA APRN) Immunizations Up To Date PED Vaccines UTD: No Influenza Vaccine Up-to-Date: Yes; Up-to-Date First/Initial COVID19 Vaccinat: 2020 Second COVID19 Vaccination Marvin: 2020 COVID19 Vaccine Customer Support Agent: EVARISTO (RADHA CHAVARRIA APRN) Seasonal Allergies Seasonal Allergies: No (RADHA CHAVARRIA APRN) Past Medical History Surgeries: Yes (kidney stone-lithrotripsy, back sx, link recorder, bowel resection, l shoul) Appendectomy, Orthopedic, Renal, Tonsillectomy Respiratory: Yes (wears O2 at night) Pulmonary Embolism Cardiac: Yes (HEART MONITOR, SEES DR HERNANDEZ) Atrial Fibrillation, Deep Vein Thrombosis, High Cholesterol, Hypertension Neurological: Yes Neuropathy Reproductive Disorders: Yes Genitourinary: Yes Benign Prostatic Hyperpl, Bladder Infection, Kidney Stones, UTI-Chronic Gastrointestinal: Yes Gastroesophageal Reflux, Esophagitis, Hiatal Hernia, Ulcer Musculoskeletal: Yes Arthritis, Scoliosis, Chronic Back Pain Endocrine: No HEENT: No Cancer: Yes Skin Psychosocial: No Integumentary: No Blood Disorders: No (RADHA CHAVARRIA APRN) Family Medical History Lung cancer Severe allergy 19 FATHER No Pertinent Family Hx (RADHA CHAVARRIA APRN) Physical Exam Vital Signs Vital Signs - First Documented 06/02/21 16:49 Temp 36.7 Pulse 63 Resp 18 B/P (MAP) 135/78 (97) Pulse Ox 96 O2 Delivery Room Air (SANTIAGO RIGGS MD) Vital Signs Capillary Refill : (RADHA CHAVARRIA APRN) Height, Weight, BMI Height: 5'68.00" Weight: 165lbs. 5.0oz. 79.680253ct; 25.00 BMI Method:Stated General Appearance: WD/WN, no apparent distress, other (Alert and oriented GCS 15) HEENT: PERRL/EOMI, normal ENT inspection Neck: non-tender, full range of motion Respiratory: normal breath sounds, no respiratory distress, no accessory muscle use Gastrointestinal: normal bowel sounds, non tender, soft Extremities: normal range of motion, non-tender, normal inspection Psychiatric: alert, oriented x 3 Crainal Nerves: normal hearing, normal speech, PERRL Skin: normal color, warm/dry (RADHA CHAVARRIA APRN) Procedures/Interventions Suture Size: 2-0 (RADHA CHAVARRIA APRN) Progress/Results/Core Measures Results/Orders Vital Signs/I&O 06/02/21 06/02/21 16:49 18:50 Temp 36.7 36.7 Pulse 63 63 Resp 18 17 B/P (MAP) 135/78 (97) 130/74 Pulse Ox 96 97 O2 Delivery Room Air Room Air (SANTIAGO RIGGS MD) Blood Pressure Mean: 97 Departure Communication (Admissions) Family Conversation 1841-I have clouded the images to [facility] where the patient is esta blished from a neurology/neurosurgery standpoint. I spoke with Dr. Causey from neurosurgery. Recommends follow-up as scheduled with her outpatient neurosurgery team. Patient should call tomorrow for an appointment. He has reviewed the images from today as well as May 05 and agrees that this looks overall stable but could perhaps indicate some more recent bleeding. Either way this would be nonoperative at this time based on the patient's relative absence of symptoms. Again the patient only endorses some global weakness and gait weakness but he does not notice any weakness of 1 arm or leg as compared to the other side. NAME: FRANTZ [facility] REC#: [id number] PT STATUS: REG ER : [id number] PHYSICIAN: RADHA CHAVARRIA APRN ADMIT DATE: 06/02/21/ER Draft Date of Exam:06/02/21 CT HEAD WO PROCEDURE: CT head without contrast. TECHNIQUE: Multiple contiguous axial images were obtained through the brain without the use of intravenous contrast. Auto Exposure Controls were utilized during the CT exam to meet ALARA standards for radiation dose reduction. INDICATION: 89-year-old male, headache over the past 3 days with history of recent brain bleed. CORRELATION STUDY: 05/05/2021 FINDINGS: Largely low density subdural hematoma in the left posterior convexity is again demonstrated. Maximum thickness is approximately 12 mm, previously approximately 14 mm. Additionally, there appears to be less overall length. Volume therefore is likely relatively stable. There is suggestion of slight increased density along the more posterior, dependent portion of the collection. Mild mass effect upon the left parietal lobe. No appreciable midline shift. Bony calvarium is intact. Complete opacification of sphenoid sinus. IMPRESSION: 1. Largely lower density left-sided subdural hematoma again demonstrated. The overall volume appears stable to perhaps minimally decreased. This appears largely chronic. However, there is suggestion of slight increased density dependently which would suggest a small amount of superimposed more acute blood. Close clinical and short-term follow-up imaging correlation is recommended. 2. The overall severity of mass effect appears relatively stable without appreciable midline shift. Dictated on workstation # [id number] Dict: 06/02/21 1744 Trans: 06/02/21 1753 RAYMA [id number] Interpreted by: JACKIE GARDNER DO Electronically signed by: (RADHA CHAVARRIA APRN) Impression Primary Impression: Chronic subdural hematoma Disposition: 01 HOME, SELF-CARE Condition: Stable Departure-Patient Inst. Decision time for Depature: 18:42 (RADHA CHAVARRIA APRN) Referrals: ILIANA WING MD (PCP/Family) Primary Care Physician Patient Instructions: Subdural Hematoma Add. Discharge Instructions: 1. Call your neurology or neurosurgery doctor at [facility] tomorrow to make an appointment to be seen whenever they can see you preferably within the next week. Return to ER for any weakness on one side or the other, confusion, intolerable headache or other concerns. All discharge instructions reviewed with patient and/or family. Voiced understanding. ATTENDING PHYSICIAN NOTE: I was physically present as attending physician in the emergency department during the care of this patient, but I was not directly involved in the decision making or delivery of care for this patient. (SANTIAGO RIGGS MD) Copy Copies To 1: ILIANA WING MD, PETER J APRN Jun 02, 2021 17:17 SANTIAGO RIGGS MD Jun 03, 2021 21:10
--- NOTE | 2021-06-02 17:54 | Diagnostic Imaging Report ---
PROCEDURE: CT head without contrast. TECHNIQUE: Multiple contiguous axial images were obtained through the brain without the use of intravenous contrast. Auto Exposure Controls were utilized during the CT exam to meet ALARA standards for radiation dose reduction. INDICATION: 89-year-old male, headache over the past 3 days with history of recent brain bleed. CORRELATION STUDY: 05/05/2021 FINDINGS: Largely low density subdural hematoma in the left posterior convexity is again demonstrated. Maximum thickness is approximately 12 mm, previously approximately 14 mm. Additionally, there appears to be less overall length. Volume therefore is likely relatively stable. There is suggestion of slight increased density along the more posterior, dependent portion of the collection. Mild mass effect upon the left parietal lobe. No appreciable midline shift. Bony calvarium is intact. Complete opacification of sphenoid sinus. IMPRESSION: 1. Largely lower density left-sided subdural hematoma again demonstrated. The overall volume appears stable to perhaps minimally decreased. This appears largely chronic. However, there is suggestion of slight increased density dependently which would suggest a small amount of superimposed more acute blood. Close clinical and short-term follow-up imaging correlation is recommended. 2. The overall severity of mass effect appears relatively stable without appreciable midline shift. Dictated by: Dictated on workstation # [id number]
[2021-06-02 18:50] VITALS: BP 130/74
== END 2021-06-02 18:53 | disposition home or self-care (01) ==
LOC: EDUNIT# 16:02 → ER 16:03
DX: I62.03 Nontraumatic chronic subdural hemorrhage (principal); I10 Essential (primary) hypertension; K21.9 Gastro-esophageal reflux disease without esophagitis; I48.91 Unspecified atrial fibrillation; E78.00 Pure hypercholesterolemia, unspecified; G89.29 Other chronic pain; M54.9 Dorsalgia, unspecified; Z86.711 Personal history of pulmonary embolism; Z86.718 Personal history of other venous thrombosis and embolism; Z79.01 Long term (current) use of anticoagulants; Z79.891 Long term (current) use of opiate analgesic; Z79.899 Other long term (current) drug therapy
CPT/HCPCS: 70450

== ENCOUNTER 2021-07-21 17:39 | Emergency (ER) | payer MEDICARE ==
[~2021-07-21] VITALS: Ht 172.7 cm; Wt 86.1 kg
--- NOTE | 2021-07-21 18:08 | ED Respiratory ---
General Chief Complaint: Respiratory Problems Stated Complaint: POSSIBLE PNE Source: patient Exam Limitations: no limitations (SANDRA MAYA MD) History of Present Illness Date Seen by Provider: Jul 21, 2021 Time Seen by Provider: 18:00 Initial Comments I have seen and evaluated the patinet, performed HPI, ROS and PE - I have reviewed and agree with the medical students documentation and assessment. (SANDRA MAYA MD) Initial Comments Patient is an 89 year old white male with a history of HTN, HLP, PE, GERD, afib, and brain bleed who presents with a 2 week history of productive cough, dyspnea, dizziness, and malaise. Reports he was seen in the clinic today for these symptoms. Had a chest xray and some blood work. Was found to have bilateral pneumonia and was hypoxic in the low 80's, so was sent to the ED for further evaluation. He reports productive cough for 10-14 days of yellowish sputum. Increasing becoming SOB, some at rest now. Denies fevers, chills, chest pain, dysuria, anorexia, and diarrhea. Reports no recent sick contacts. Is covid vaccinated x 2 and flu vaccinated this season. Timing/Duration: getting worse, other (2 weeks) Severity: mild Prior Episodes/Possible Cause: unknown cause Modifying Factors: Improves With Activity Associated Symptoms: No chest pain/soreness; cough, dizziness; No facial pain, No fever/chills, No headache; lightheadedness; No nasal congestion, No nasal drainage; shortness of breath (RANDI ROLDAN MED STUDENT) Allergies and Home Medications Allergies Coded Allergies: Penicillins (Verified Allergy, Severe, Anaphylaxis (pt tolerates Ceftriaxone), 02/26/19) iodine (Verified Allergy, Unknown, 02/26/19) Uncoded Allergies: SURGICAL GLUE (Allergy, Severe, "TOOK OFF SKIN", 06/04/17) Patient Home Medication List Home Medication List Reviewed: Yes (SANDRA MAYA MD) Acetaminophen (Acetaminophen) 500 Mg Tablet, 500 MG PO TID, (Reported) Entered as Reported by: LILY KSIER on 11/12/19 9229 Ascorbate Calcium/Bioflavonoid (Selina-C 1,000 mg Tablet) 1 Each Tablet, 1,000 MG PO 1200, (Reported) Entered as Reported by: CHARLES LYNN on 05/26/17 1115 Calcium Carbonate/Vitamin D3 (Calcium 500 + D Tablet) 1 Each Tablet, 1 TAB PO 1200, (Reported) Entered as Reported by: CHARLES LYNN on 05/26/17 111 Cefdinir (Cefdinir) 300 Mg Capsule, 300 MG PO BID Prescribed by: SANDRA MAYA on 07/21/21 191 Cyanocobalamin (Vitamin B-12) (Vitamin B-12) 500 Mcg Tablet, 500 MCG PO 1200, (Reported) Entered as Reported by: CHARLES LYNN on 05/26/17 111 Diclofenac Sodium (Diclofenac Sodium) 100 Gm Gel..gram., TOP HS, (Reported) Entered as Reported by: CHARLES LYNN on 02/20/19 1326 Dronedarone HCl (Multaq) 400 Mg Tablet, 400 MG PO BID, (Reported) Entered as Reported by: CHARLES LYNN on 02/20/19 1326 Fenofibrate (Fenofibrate) 160 Mg Tablet, 160 MG PO HS, (Reported) Entered as Reported by: CHARLES LYNN on 03/30/17 1014 Folic Acid (Folic Acid) 0.4 Mg Tablet, 0.4 MG PO 1200, (Reported) Entered as Reported by: CHARLES LYNN on 05/26/17 111 Magnesium Oxide (Magnesium) 400 Mg Capsule, 400 MG PO 1200, (Reported) Entered as Reported by: CHARLES LYNN on 05/26/17 111 Metoprolol Succinate (Metoprolol Succinate) 25 Mg Tab.er.24h, 25 MG PO HS, (Reported) Entered as Reported by: CHARLES LYNN on 03/30/17 1014 Metoprolol Succinate (Metoprolol Succinate) 50 Mg Tab.er.24h, 50 MG PO DAILY Prescribed by: YAMILET WHITE on 06/23/20 1426 Mv,Minerals/FA/Lycopene/Ginkgo (One Daily For Men 50+ Adv Tab) 1 Each Tablet, 1 TAB PO 1200, (Reported) Entered as Reported by: CHARLES LYNN on 05/26/17 111 Omeprazole (Omeprazole) 20 Mg Capsule.dr, 20 MG PO DAILY PRN for HEARTBURN, (Reported) Entered as Reported by: CHARLES LYNN on 03/30/17 1020 Tramadol HCl (Tramadol HCl) 50 Mg Tablet, 50 MG PO BID PRN for PAIN-MODERATE (5- 7), (Reported) Entered as Reported by: LILY KISER on 11/12/191828 Warfarin Sodium (Warfarin Sodium) 2.5 Mg Tablet, 2.5 MG PO DAILY, (Reported) Entered as Reported by: LILY KISER on 11/12/191828 [Vitamin D3] , 2,000 PO DAILY, (Reported) Entered as Reported by: LILY KISER on 11/12/191828 Review of Systems Review of Systems Constitutional: see HPI EENTM: no symptoms reported Respiratory: cough, dyspnea on exertion, phlegm, short of breath Genitourinary: no symptoms reported Musculoskeletal: no symptoms reported (SANDRA MAYA MD) Constitutional: No chills, No diaphoresis; dizziness, malaise EENTM: no symptoms reported; No blurred vision, No double vision, No nose congestion, No nose pain Respiratory: cough, dyspnea on exertion, short of breath Cardiovascular: no symptoms reported; No chest pain, No edema Gastrointestinal: No abdominal pain, No constipation, No diarrhea; heartburn; No loss of appetite, No nausea, No vomiting Genitourinary: No decreased output, No discharge, No dysuria Musculoskeletal: back pain (chronic in lumbar region); No joint pain, No joint swelling, No muscle cramps Skin: no symptoms reported; No change in color, No change in hair/nails, No rash Psychiatric/Neurological: No Symptoms Reported; Denies Anxiety, Denies Depressed Hematologic/Lymphatic: No Symptoms Reported; Denies Easy Bleeding, Denies Easy Bruising Immunological/Allergic: no symptoms reported (RANDI ROLDAN MED STUDENT) All Other Systems Reviewed Negative Unless Noted: Yes (SANDRA MAYA MD) Negative Unless Noted: Yes (RANDI ROLDAN STUDENT) Past Rtbpoyt-Idterp-Pbwxez Hx Patient Social History Tobacco Use?: No Smoking Status: Former Smoker Smokeless Tobacco Frequency: Never a User Use of E-Cig and/or Vaping dev: No Use of E-Cig and/or Vaping Phillip: Never a User Substance use?: No Alcohol Use?: No (RANDI ROLDAN MED STUDENT) Immunizations Up To Date PED Vaccines UTD: No First/Initial COVID19 Vaccinat: 2020 Second COVID19 Vaccination Marvin: 2020 (SANDRA MAYA MD) Tetanus Booster (TDap): Unknown Influenza Vaccine Up-to-Date: Yes; Up-to-Date (RANDI ORLDAN STUDENT) Seasonal Allergies Seasonal Allergies: No (SANDRA MAYA MD) Seasonal Allergies: No (RANDI ROLDAN) Past Medical History Surgeries: Yes (kidney stone-lithrotripsy, back sx, link recorder, bowel resection, l shoul) Appendectomy, Orthopedic, Renal, Tonsillectomy Respiratory: Yes (wears O2 at night) Pulmonary Embolism Cardiac: Yes (HEART MONITOR, SEES DR HERNANDEZ) Atrial Fibrillation, Deep Vein Thrombosis, High Cholesterol, Hypertension Neurological: Yes Neuropathy Reproductive Disorders: Yes Genitourinary: Yes Benign Prostatic Hyperpl, Bladder Infection, Kidney Stones, UTI-Chronic Gastrointestinal: Yes Gastroesophageal Reflux, Esophagitis, Hiatal Hernia, Ulcer Musculoskeletal: Yes Arthritis, Scoliosis, Chronic Back Pain Endocrine: No HEENT: No Cancer: Yes Skin Psychosocial: No Integumentary: No Blood Disorders: No (SANDRA MAYA MD) Surgeries: Yes Abdominal, Appendectomy, Tonsillectomy Respiratory: Yes (Central sleep apnea) Pulmonary Embolism Currently Using CPAP: Yes Currently Using BIPAP: No Cardiac: Yes Atrial Fibrillation, High Cholesterol, Hypertension Neurological: Yes (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) Reproductive Disorders: No Genitourinary: Yes Benign Prostatic Hyperpl, Bladder Infection, Kidney Stones, UTI-Chronic Gastrointestinal: Yes Gastroesophageal Reflux, Hiatal Hernia Musculoskeletal: Yes Degenerate Disk Disease, Arthritis, Chronic Back Pain Endocrine: No HEENT: No Loss of Vision: Denies Hearing Impairment: Denies Cancer: Yes Skin Psychosocial: No Integumentary: No Blood Disorders: No (RANDI ROLDAN STUDENT) Family Medical History Lung cancer Severe allergy 19 FATHER No Pertinent Family Hx (SANDRA MAYA MD) Physical Exam Vital Signs - First Documented 07/21/21 07/21/21 17:48 18:19 Temp 36.2 Pulse 73 Resp 20 B/P (MAP) 118/89 (99) Pulse Ox 2 O2 Delivery Nasal Cannula O2 Flow Rate 2.00 (RANDI ROLDAN MED STUDENT) Capillary Refill : (SANDRA MAYA MD) Height: 5'68.00" Weight: 165lbs. 5.0oz. 79.536865kw; 25.00 BMI Method:Stated General Appearance: WD/WN, no apparent distress Respiratory: no respiratory distress, no accessory muscle use, crackles (bilateral bases O2 @ 2L PNC shows sats at 91-93%), other (no increased work of breathing or respiratory distress) Cardiovascular: regular rate, rhythm, no edema Gastrointestinal: non tender, soft Extremities: normal range of motion, non-tender, normal inspection, no pedal edema, no calf tenderness, normal capillary refill Neurologic/Psychiatric: alert, normal mood/affect, oriented x 3 Skin: normal color, warm/dry (SANDRA MAYA MD) General Appearance: WD/WN, no apparent distress Eyes: Bilateral Eye Normal Inspection, Bilateral Eye PERRL, Bilateral Eye EOMI HEENT: PERRL/EOMI, pharynx normal Neck: non-tender, supple Respiratory: chest non-tender, no respiratory distress, no accessory muscle use, crackles (bibasilar anteriorly and posteriorly) Cardiovascular: normal peripheral pulses, no edema Gastrointestinal: normal bowel sounds, non tender, soft; No distended, No tenderness Extremities: normal range of motion, non-tender, no pedal edema, no calf tenderness Neurologic/Psychiatric: alert, normal mood/affect, oriented x 3 Skin: normal color, warm/dry; No rash Lymphatic: no adenopathy (Head and Neck) (RANDI ROLDAN MED STUDENT) Procedures/Interventions Suture Size: 2-0 (SANDRA MAYA MD) Progress/Results/Core Measures Suspected Sepsis SIRS Temperature: Pulse: Respiratory Rate: Laboratory Tests 07/21/21 18:05: White Blood Count 15.2H Blood Pressure / Mean: Laboratory Tests 07/21/21 18:05: Creatinine 1.91H, Platelet Count 307, Total Bilirubin 0.3 (SANDRA MAYA MD) Results/Orders Lab Results Laboratory Tests Test 07/21/21 18:05 07/21/21 18:26 Range/Units White Blood Count 15.2 H 4.3-11.0 10^3/uL Red Blood Count 3.55 L 4.30-5.52 10^6/uL Hemoglobin 11.6 L 13.3-17.7 g/dL Hematocrit 36 L 40-54 % Mean Corpuscular Volume 102 H 80-99 fL Mean Corpuscular Hemoglobin 33 25-34 pg Mean Corpuscular Hemoglobin Concent 32 32-36 g/dL Red Cell Distribution Width 13.5 10.0-14.5 % Platelet Count 307 130-400 10^3/uL Mean Platelet Volume 10.1 9.0-12.2 fL Immature Granulocyte % (Auto) 2 % Neutrophils (%) (Auto) 70 42-75 % Lymphocytes (%) (Auto) 11 L 12-44 % Monocytes (%) (Auto) 15 H 0-12 % Eosinophils (%) (Auto) 2 0-10 % Basophils (%) (Auto) 1 0-10 % Neutrophils # (Auto) 10.6 H 1.8-7.8 10^3/uL Lymphocytes # (Auto) 1.7 1.0-4.0 10^3/uL Monocytes # (Auto) 2.2 H 0.0-1.0 10^3/uL Eosinophils # (Auto) 0.3 0.0-0.3 10^3/uL Basophils # (Auto) 0.1 0.0-0.1 10^3/uL Immature Granulocyte # (Auto) 0.2 H 0.0-0.1 10^3/uL Sodium Level 140 135-145 MMOL/L Potassium Level 4.2 3.6-5.0 MMOL/L Chloride Level 104 98-107 MMOL/L Carbon Dioxide Level 23 21-32 MMOL/L Anion Gap 13 5-14 MMOL/L Blood Urea Nitrogen 30 H 7-18 MG/DL Creatinine 1.91 H 0.60-1.30 MG/DL Estimat Glomerular Filtration Rate 33 BUN/Creatinine Ratio 16 Glucose Level 118 H 70-105 MG/DL Calcium Level 10.4 H 8.5-10.1 MG/DL Corrected Calcium 10.6 H 8.5-10.1 MG/DL Total Bilirubin 0.3 0.1-1.0 MG/DL Aspartate Amino Transf (AST/SGOT) 15 5-34 U/L Alanine Aminotransferase (ALT/SGPT) 11 0-55 U/L Alkaline Phosphatase 49 40-136 U/L Total Protein 7.8 6.4-8.2 GM/DL Albumin 3.8 3.2-4.5 GM/DL (RANDI ROLDAN MED STUDENT) Vital Signs/I&O 07/21/21 07/21/21 07/21/21 17:48 18:17 18:19 Temp 36.2 36.2 Pulse 73 73 Resp 20 20 B/P (MAP) 118/89 (99) 118/89 Pulse Ox 2 2 O2 Delivery Nasal Cannula Nasal Cannula O2 Flow Rate 2.00 (RANDI ROLDAN MED STUDENT) Vital Signs/I&O Capillary Refill : (SANDRA MAYA MD) Progress Note : Time: 19:15 Progress Note Patient looks well. Of note he has a very obvious right lower lobe infiltrate, likely left lower lobe except obscured by the cardiac silhouette. He has a leukocytosis of 15,000. Renal function is stable. Electrolytes are normal. Room air sats dropped to 87 after about 3 minutes off of oxygen. He bounces back up to 92 to 93% on 2 L per nasal cannula. Patient states that he discontinued his CPAP about a week ago after he had been waking up at night with lots of water on his face. He states he had quite a bit of discomfort when using his CPAP at night. He has chronic purulent sputum that he is coughing up in the room. But he exhibits no respiratory distress or increased work of breathing. No audible wheezing. Appetite has been down only for about a day he states. Urinating and bowel movements are normal. Plan of care is to give the patient 1 g of Rocephin here in the emergency department. We will follow that with 7 days of cefdinir 300 mg twice daily. He has a scheduled follow-up appointment with his primary care physician Dr. Wing at 8:30 in the morning on of this week. I contacted [facility] and they will bring him a portable oxygen concentrator that will get him through to his appointment on at 830. The patient and his son who is at the bedside are both comfortable with this plan of care. All questions are sought and answered. (SANDRA MAYA MD) Departure Impression Primary Impression: Pneumonia Qualified Codes: J18.9 - Pneumonia, unspecified organism Additional Impression: Hypoxia Disposition: HOME, SELF-CARE Condition: Stable Departure-Patient Inst. Decision time for Depature: 19:17 (SANDRA MAYA MD) Referrals: ILIANA WING MD (PCP/Family) Primary Care Physician Patient Instructions: Pneumonia, Adult (DC) Add. Discharge Instructions: PLease keep the oxygen on at all times at 2-3L PNC. Keep your appointment with Dr Wing for 08 on this morning. You can start the oral antibiotics tomorrow - Cefdinir 300mg twice a day for [address] Wing may add a different antibiotic at your appointment. Return to the ER for re-evaluation if you have any worsening shortness of breath, cough, high fever or other emergent concerning symptoms. Scripts Cefdinir (Cefdinir) 300 Mg Capsule 300 MG PO BID, #14 CAP 0 Refills Prov: SANDRA MAYA MD 07/21/21 Verification and Attestation of Medical Student E/M Service A medical student performed and documented this service in my presence. I reviewed and verified all information documented by the medical student and made modifications to such information, when appropriate. I personally performed the physical exam and medical decision making. Sandra Maya, Jul 21, 2021,19:19 (SANDRA MAYA MD) Copy Copies To 1: ILIANA WING MD, KATHRYN M MD Jul 21, 2021 18:08 RANDI ROLDAN MED STUDENT Jul 21, 2021 18:26
[2021-07-21 18:13] LABS: BASOPHILS # (AUTO) 0.1 10^3/uL (0.0-0.1); BASOPHILS % (AUTO) 1 % (0-10); EOSINOPHILS # (AUTO) 0.3 10^3/uL (0.0-0.3); EOSINOPHILS % (AUTO) 2 % (0-10); HEMATOCRIT 36 % (40-54); HEMOGLOBIN 11.6 g/dL (13.3-17.7); LYMPHOCYTES # (AUTO) 1.7 10^3/uL (1.0-4.0); LYMPHOCYTES % (AUTO) 11 % (12-44); MEAN CORPUSCULAR HEMOGLOBIN 33 pg (25-34); MEAN CORPUSCULAR HGB CONC 32 g/dL (32-36); MEAN CORPUSCULAR VOLUME 102 fL (80-99); MEAN PLATELET VOLUME 10.1 fL (9.0-12.2); MONOCYTES # (AUTO) 2.2 10^3/uL (0.0-1.0); MONOCYTES % (AUTO) 15 % (0-12); NEUTROPHILS # (AUTO) 10.6 10^3/uL (1.8-7.8); NEUTROPHILS % (AUTO) 70 % (42-75); PLATELET COUNT 307 10^3/uL (130-400); WHITE BLOOD COUNT 15.2 10^3/uL (4.3-11.0)
[2021-07-21 18:17] VITALS: BP 118/89
[2021-07-21 18:25] LABS: ALBUMIN 3.8 GM/DL (3.2-4.5); POTASSIUM 4.2 MMOL/L (3.6-5.0)
[2021-07-21 18:26] LABS: CALCIUM 10.4 MG/DL (8.5-10.1)
[2021-07-21 18:27] LABS: TOTAL PROTEIN 7.8 GM/DL (6.4-8.2)
[2021-07-21 18:29] LABS: BILIRUBIN,TOTAL 0.3 MG/DL (0.1-1.0)
[2021-07-21 18:31] LABS: CREATININE SERUM 1.91 MG/DL (0.60-1.30)
[2021-07-21 18:34] LABS: BILIRUBIN,URINE NEGATIVE (NEGATIVE); CLARITY,URINE CLEAR; COLOR,URINE YELLOW; GLUCOSE, URINE (UA) NEGATIVE (NEGATIVE); KETONES,URINE NEGATIVE (NEGATIVE); LEUKOCYTE ESTERASE ,URINE NEGATIVE (NEGATIVE); NITRITE,URINE NEGATIVE (NEGATIVE); PROTEIN,URINE TRACE (NEGATIVE)
--- NOTE | 2021-07-21 18:34 | Diagnostic Imaging Report ---
INDICATION: Shortness of breath and cough. Time Of Exam: 6:34 PM Correlation is made with prior chest 03/25/2021. Heart size is normal. There is some patchy infiltrate in the right base. Left lung is clear. Cardiac loop recorder overlies the lower left chest. There are postoperative changes of reverse shoulder arthroplasty on the left. There is no effusion or pneumothorax IMPRESSION: Patchy right basilar pneumonia. Dictated by: Dictated on workstation # [id number]
[2021-07-21 18:48] LABS: BACTERIA,URINE NEGATIVE /HPF
[2021-07-21 18:49] LABS: AMORPHOUS SEDIMENT,UR RARE AMOR URATES /LPF
[2021-07-21 18:50] LABS: BAND NEUTROPHILS 1 %; EOSINOPHILS % (MANUAL) 5 %; LYMPHOCYTES % (MANUAL) 11 %; MONOCYTES % (MANUAL) 15 %; NEUTROPHILS % (MANUAL) 68 %; RBC MORPH NORMAL
[2021-07-21] MEDS ORDERED: cefTRIAXone 1 GM PRE-MIX 50 ML IV ONE (19:00)
[2021-07-21] MEDS ORDERED: CEFD300C3 PO (19:19)
== END 2021-07-21 20:20 | disposition home or self-care (01) ==
LOC: EDUNIT# 17:39 → ER 17:42
DX: J18.9 Pneumonia, unspecified organism (principal); R09.02 Hypoxemia; D72.829 Elevated white blood cell count, unspecified; Z87.891 Personal history of nicotine dependence
CPT/HCPCS: 36415; 71045; 80053; 81000; 84145; 85007; 85027; 87070; 87205

== ENCOUNTER → 2021-08-04 | Outpatient (CLI) | payer MEDICARE ==
[~2021-08-04] MED LIST changes: +CEFD300C3 PO
--- NOTE | 2021-08-04 14:25 | Diagnostic Imaging Report ---
INDICATION: Pneumonia, dyspnea, hypoxia. EXAMINATION: 2 view chest 08/04/2021 COMPARISON: 07/21/2021 FINDINGS: There is a loop recorder device on the left. Postoperative changes in the left shoulder incidentally noted. Heart and pulmonary vasculature normal. Chronic appearing changes seen throughout both lungs with more focal airspace opacities at the bases possibly areas of scar or atelectasis. Mild infiltrate not excluded, correlate with symptoms. No effusions. No pneumothorax. IMPRESSION: 1. Diffuse chronic findings with mild bibasal atelectasis versus infiltrate not excluded. Dictated by: Dictated on workstation # [id number]
== END ==
LOC: RAD 11:23
PROVIDERS: ATTEND Nurse Practitioner Family
DX: J18.9 Pneumonia, unspecified organism (principal); J98.11 Atelectasis
CPT/HCPCS: 71046

== ENCOUNTER → 2021-08-07 | Outpatient (CLI) | payer MEDICARE ==
--- NOTE | 2021-08-07 10:14 | Diagnostic Imaging Report ---
PROCEDURE: CT chest without contrast. TECHNIQUE: Multiple contiguous axial images were obtained through the chest without the use of intravenous contrast. Auto Exposure Controls were utilized during the CT exam to meet ALARA standards for radiation dose reduction. INDICATION: Atelectasis and pneumonia with shortness of breath. Comparison with CT chest of 02/26/2019. FINDINGS: There has been development of diffuse interstitial lung disease with bronchiectasis and mild honeycombing especially in the lung bases. There are scattered groundglass infiltrates. There are no consolidated infiltrates. No discrete masses are seen. The lung apices are relatively well spared. No pleural effusion or pericardial effusion. Aorta is atherosclerotic. No evidence of aortic aneurysm. Calcified coronary arteries. No mediastinal or hilar adenopathy of pathologic size. No blastic or lytic bony lesion. 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 Scattered groundglass infiltrates present as well which likely represent superimposed pneumonia. Dictated by: Dictated on workstation # [id number]
== END ==
LOC: RAD 09:45
PROVIDERS: ATTEND Nurse Practitioner Family
DX: J47.9 Bronchiectasis, uncomplicated (principal); J98.11 Atelectasis; J18.9 Pneumonia, unspecified organism; R91.8 Other nonspecific abnormal finding of lung field
CPT/HCPCS: 71250

== ENCOUNTER → 2021-10-02 | Outpatient (CLI) | payer MEDICARE ==
--- NOTE | 2021-10-02 10:01 | Diagnostic Imaging Report ---
INDICATION: Heart failure. TIME OF EXAM: 9:27 AM Correlation is made with prior chest from 08/04/2021. FINDINGS: Cardiac loop recorder overlies left lung base. Heart size is stable. Lungs appear clear. No infiltrate or failure is seen. There is no effusion or pneumothorax. Postoperative changes left shoulder noted. IMPRESSION: No acute cardiopulmonary process is detected. Dictated by: Dictated on workstation # [id number]
[2021-10-02 10:02] LABS: ALBUMIN 4.1 GM/DL (3.2-4.5); BILIRUBIN,DIRECT 0.2 MG/DL (0.0-0.3); BILIRUBIN,INDIRECT 0.2 MG/DL; BILIRUBIN,TOTAL 0.4 MG/DL (0.1-1.0); TOTAL PROTEIN 7.5 GM/DL (6.4-8.2)
[2021-10-02 10:22] LABS: TSH (THYROID ANALYZER) 8.39 UIU/ML (0.35-4.94)
[2021-10-02 11:07] LABS: FREE T4 (FREE THYROXINE) 0.92 NG/DL (0.70-1.48)
== END ==
LOC: RAD 09:11
PROVIDERS: ATTEND Internal Medicine Cardiovascular Disease
DX: Z51.81 Encounter for therapeutic drug level monitoring (principal); I50.32 Chronic diastolic (congestive) heart failure; I50.9 Heart failure, unspecified; Z79.899 Other long term (current) drug therapy
CPT/HCPCS: 36415; 71046; 80076; 84439; 84443

== ENCOUNTER → 2021-10-20 | Outpatient (CLI) | payer MEDICARE ==
--- NOTE | 2021-10-20 14:38 | Diagnostic Imaging Report ---
CT CHEST WO TECHNIQUE: Multiple contiguous axial images were obtained through the chest without the use of intravenous contrast. All CT scans use one or more of the following dose optimizing techniques: automated exposure control, MA and/or KvP adjustment based on a patient size and exam type, or iterative reconstruction. INDICATION: Shortness of breath COMPARISON: 08/07/2021 FINDINGS: Lungs and airway: No pneumonia or edema. Bronchial dilation in the bilateral lower lobes has improved but persists. Reticular opacities and subpleural bands in the lung bases have also improved. No honeycombing. No suspicious pulmonary nodules. Scattered calcified pulmonary granulomas are unchanged. Pleura: No pleural effusion or pneumothorax. Heart and mediastinum: No supraclavicular or axillary lymphadenopathy. No mediastinal or hilar lymphadenopathy. The heart is normal in size without pericardial effusion. Normal caliber thoracic aorta. Severe coronary artery calcifications are unchanged. Upper abdomen: No concerning abnormality in the upper abdomen. Musculoskeletal: No worrisome focal osseous lesions. IMPRESSION: 1. Improvement in the bibasilar pneumonitis and bronchial dilation. While there remains mild bronchial dilatation in the lung bases, the overall appearance is likely due to resolution of sequelae of severe infection. There are no features to suggest interstitial lung disease. Dictated by: Dictated on workstation # [id number]
== END ==
LOC: RAD 09:18
PROVIDERS: ATTEND Internal Medicine Critical Care Medicine
DX: G47.33 Obstructive sleep apnea (adult) (pediatric) (principal); R06.02 Shortness of breath
CPT/HCPCS: 71250

== ENCOUNTER → 2022-01-01 | Outpatient (CLI) | payer MEDICARE ==
[~2022-01-01] MED LIST changes: +LEVO-55 PO; -LEVO500T81 PO
--- NOTE | 2022-01-01 10:03 | Diagnostic Imaging Report ---
INDICATION: Right thigh swelling. Right leg venous Doppler study was performed in the routine fashion with color flow Doppler and waveform analysis. FINDINGS: The right common femoral vein, superficial femoral vein, popliteal vein and visualized portion of the tibial veins show normal compressibility and venous flow patterns. There is normal augmentation. No focal sonographic abnormality is seen in the area of swelling. IMPRESSION: No evidence of deep vein thrombosis of the major veins of the right leg. Dictated by: Dictated on workstation # [id number]
== END ==
LOC: RAD 09:30
PROVIDERS: ATTEND Nurse Practitioner Family
DX: M79.89 Other specified soft tissue disorders (principal); R22.31 Localized swelling, mass and lump, right upper limb